=== PATIENT | male | born 1955 ===

== ENCOUNTER 2016-09-07 06:37 | Day surgery (SDC) | payer MEDICARE ==
[2016-09-07] MEDS ORDERED: Propofol 10 mg/ml Inj (20 ML) ONE (08:29)
--- NOTE | 2016-09-07 08:29 | CP.SDSHP ---
Same Day Surgery H & P - History Proposed Procedure: colonoscopy Pre-Op Diagnosis: screening - Previous Medical/Surgical History Cardiac: Hypertension - Allergies Allergies: Allergies Penicillins Allergy (Intermediate, Verified 09/07/16 07:39) DIZZINESS - Physical Exam Vital Signs: Vital Signs 09/07/16 07:25 Temperature 99.0 F Pulse Rate 80 Respiratory 20 Rate Blood Pressure 133/76 O2 Sat by Pulse 99 Oximetry Mental Status: Alert & Oriented x3 Neuro: WNL Heart: WNL Lungs: WNL GI: WNL - {Optional Preform as Required} Abdomen: WNL - Impression Impression: screening Pt. Evaluated Today:Candidate for Anesthesia & Procedure: Yes - Date & Time Date: 09/07/16 Time: 08:29 Short Stay Discharge - Short Stay Discharge Admitting Diagnosis/Reason for Visit: SCREENING FOR MAL OSMIN COLON Disposition: HOME/ ROUTINE
[2016-09-07 10:22] VITALS: BP 112/69; PULSE 72; RESP 12; TEMP 97.9; O2SAT 97
== END 2016-09-07 10:10 | disposition home or self-care (01) ==
LOC: C.ENDO 06:37
PROVIDERS: ATTEND Internal Medicine Gastroenterology
DX: D12.3 Benign neoplasm of transverse colon (principal); D12.5 Benign neoplasm of sigmoid colon; K57.30 Diverticulosis of large intestine without perforation or abscess without bleeding; K64.8 Other hemorrhoids; D12.4 Benign neoplasm of descending colon
CPT/HCPCS: 45388; 88305; J2704

== ENCOUNTER 2016-12-21 07:39 | Day surgery (SDC) | payer MEDICARE ==
[2016-12-21 09:31] VITALS: RESP 20
[2016-12-21] MEDS ORDERED: Propofol 10 mg/ml Inj (20 ML) ONE (10:22)
[2016-12-21] MEDS ORDERED: Lactated Ringer's 1,000 ML IV ONE (10:25)
--- NOTE | 2016-12-21 10:29 | CP.SDSHP ---
Same Day Surgery H & P - History Proposed Procedure: egd Pre-Op Diagnosis: abdom pain - Previous Medical/Surgical History Cardiac: Hypertension - Allergies Allergies: Allergies Penicillins Allergy (Intermediate, Verified 09/07/16 07:39) DIZZINESS - Physical Exam Vital Signs: Vital Signs 12/21/16 09:15 Temperature 98 F Pulse Rate 85 Respiratory 20 Rate Blood Pressure 139/58 L O2 Sat by Pulse 99 Oximetry Mental Status: Alert & Oriented x3 Neuro: WNL Heart: WNL Lungs: WNL GI: WNL - {Optional Preform as Required} Abdomen: WNL - Impression Impression: abdom pain Pt. Evaluated Today:Candidate for Anesthesia & Procedure: Yes - Date & Time Date: 12/21/16 Time: 10:29 Short Stay Discharge - Short Stay Discharge Admitting Diagnosis/Reason for Visit: ABDOMINAL PAIN Disposition: HOME/ ROUTINE
[2016-12-21 14:54] VITALS: TEMP 97
[2016-12-21 14:56] VITALS: O2SAT 100
[2016-12-21 15:02] VITALS: BP 148/90; PULSE 88
== END 2016-12-21 12:30 | disposition home or self-care (01) ==
LOC: C.ENDO 07:39
PROVIDERS: ATTEND Internal Medicine Gastroenterology
DX: K29.50 Unspecified chronic gastritis without bleeding (principal); K21.0 Gastro-esophageal reflux disease with esophagitis; R10.13 Epigastric pain
CPT/HCPCS: 43239; 88305; J2001; J2704; J7120

== ENCOUNTER 2017-09-01 20:40 | Inpatient (IN) | payer MEDICARE, OTHER ==
[2017-09-01] MEDS ORDERED: Albuterol 0.083% Inhal Sol (2.5 mg/3 mL) UD ONE (20:58)
[2017-09-01] MEDS ORDERED: Albuterol-Ipratrop 3 mg / 0.5 (3 ml) UD IH STA (20:59)
[2017-09-01] MEDS ORDERED: Albuterol 0.083% Inhal Sol (2.5 mg/3 mL) UD IH STA (20:59)
[2017-09-01 21:07] LABS: BASO # 0.1 K/uL (0.0-0.2); BASO % 0.8 % (0.0-2.0); EOS # 0.3 K/uL (0.0-0.7); EOS % 2.3 % (0.0-4.0); HEMOGLOBIN 15.7 g/dL (12.0-18.0); LYMPH # 3.1 K/uL (1.0-4.3); LYMPH % 24.8 % (20.0-40.0); MEAN CORPUSCULAR HEMOGLOBIN 27.8 pg (27.0-31.0); MEAN CORPUSCULAR HGB CONC 34.3 g/dL (33.0-37.0); MEAN PLATELET VOLUME 8.3 fL (7.2-11.7); MONO # 1.3 K/uL (0.0-0.8); MONO % 10.5 % (0.0-10.0); NEUT # 7.8 K/uL (1.8-7.0); NEUT % 61.6 % (50.0-75.0); NRBC % 0.2 % (0.0-2.0); RBC 5.63 Mil/uL (4.40-5.90); RED CELL DISTRIBUTION WIDTH 15.4 % (11.5-14.5); WHITE BLOOD COUNT 12.7 K/uL (4.8-10.8)
[2017-09-01 21:33] LABS: ABG ALLEN TEST YES; ARTERIAL BLOOD GAS HCO3 23.7 mmol/L (21-28); ARTERIAL BLOOD GAS O2 SAT 98.4 % (95-98); ARTERIAL BLOOD GAS PCO2 32 mm/Hg (35-45); ARTERIAL BLOOD GAS PH 7.44 (7.35-7.45); ARTERIAL BLOOD GAS PO2 90 mm/Hg (80-100); ARTERIAL BLOOD GAS TCO2 22.7 mmol/L (22-28)
[2017-09-01 21:47] LABS: ALB/GLOB RATIO 0.9 (1.0-2.1); ALBUMIN 4.5 g/dL (3.5-5.0); ALT/SGPT 133 U/L (21-72); AST/SGOT 140 U/L (17-59); BLOOD UREA NITROGEN 17 mg/dL (9-20); CALCIUM 10.1 mg/dl (8.6-10.4); GFR AFRICAN-AMERICAN 57; GFR NON-AFRICAN AMERICAN 47
[2017-09-01] MEDS ORDERED: Moxifloxacin IV 400mg/250ml NS 400 MG/250 ML BAG IV ONE (21:51)
--- NOTE | 2017-09-01 21:51 | C.PDOC ---
History Of Present Illness 62 year old male, whose PMHx includes HTN and chronic pain syndrome, presents to the ED for evaluation of shortness of breath which had been ongoing for several weeks but worsened over the last 2 days. Earlier today, patient began experiencing mid-sternal chest tightness with severe difficulty breathing. He took one full strength Aspirin without relief. Upon ED arrival, patient appears to be acutely short of breath, profusely diaphoretic and is complaining of chest pain and trouble breathing. Patient denies fever, chills, nasuea, vomiting , cough, extremity numbness/weakness. Time Seen by Provider: 09/01/17 20:49 Chief Complaint (Nursing): Chest Pain History Per: Patient History/Exam Limitations: no limitations Onset/Duration Of Symptoms: Other (several weeks, worse over past 2 days ) Current Symptoms Are (Timing): Worse Quality: Tightness Current Respiratory Medications: See Home Med List Associated Symptoms: Chest Pain. denies: Fever, Chills, Bloody Cough, Productive Cough Additional History Per: Patient Past Medical History Reviewed: Historical Data, Nursing Documentation, Vital Signs Vital Signs: Last Vital Signs Temp 99 F 09/01/17 20:50 Pulse 90 09/01/17 21:30 Resp 20 09/01/17 20:50 BP 134/101 H 09/01/17 20:50 Pulse Ox 99 09/01/17 22:22 - Medical History PMH: Anxiety, Arthritis, Colonic Polyps, Gastritis, HTN Denies: Depression, Post Traumatic Stress Disorder, Chronic Kidney Disease Surgical History: Back Surgery, Endoscopy Family History: States: Unknown Family Hx - Social History Hx Tobacco Use: Yes Hx Alcohol Use: No Hx Substance Use: No - Immunization History Hx Tetanus Toxoid Vaccination: Yes (3-4 years ago) Hx Influenza Vaccination: Yes (03/2015) Hx Pneumococcal Vaccination: No Review Of Systems Constitutional: Negative for: Fever, Chills Cardiovascular: Positive for: Other (mid-sternal chest tightness ) Respiratory: Positive for: Shortness of Breath. Negative for: Cough Gastrointestinal: Negative for: Nausea, Vomiting Neurological: Negative for: Weakness, Numbness Physical Exam - Physical Exam Appears: Non-toxic, Other (in acute respiratory distress ) Skin: Normal Color, Warm, Diaphoretic, Other (dusky, clammy ) Head: Atraumatic, Normacephalic Eye(s): bilateral: Normal Inspection Oral Mucosa: Moist Neck: Supple Chest: Symmetrical, No Deformity, No Tenderness Cardiovascular: Rhythm Regular, No Murmur Respiratory: Decreased Breath Sounds (bilaterally ), No Rales, No Rhonchi, Wheezing, Other (tachypneic ) Gastrointestinal/Abdominal: Soft, No Tenderness, No Guarding, No Rebound Extremity: Normal ROM, Capillary Refill (less than 2 seconds ) Neurological/Psych: Oriented x3, Normal Speech, Normal Cognition ED Course And Treatment - Laboratory Results Result Diagrams: 09/01/17 21:04 09/01/17 21:04 O2 Sat by Pulse Oximetry: 99 (on RA) Pulse Ox Interpretation: Normal Progress Note: Bloodwork, urinalysis, CXR , EKG ordered and reviewed. BIPAP started. Albuterol INH, Solumedrol IV, Nitroglycerin SL, Rocephin IVP, and Zithromax IV administered. On re-exam, patient is resting comfortably and has shown significant improvement in symptoms. Case discussed with Dr. Villa. Patient will be admitted for community aquired pneumonia. Reevaluation Time: 22:25 Reassessment Condition: Improved Disposition - Disposition Disposition: HOSPITALIZED Disposition Time: 22:26 Condition: IMPROVED - POA Present On Arrival: None - Clinical Impression Clinical Impression: Pneumonia - Scribe Statement The provider has reviewed the documentation as recorded by the Scribe (Eliane Iverson) Provider Attestation: All medical record entries made by the Scribe were at my direction and personally dictated by me. I have reviewed the chart and agree that the record accurately reflects my personal performance of the history, physical exam, medical decision making, and the department course for this patient. I have also personally directed, reviewed, and agree with the discharge instructions and disposition.
[2017-09-01 21:59] LABS: B-TYPE NATRIURETIC PEPTIDE 34.6 pg/mL (0-900)
[2017-09-01] MEDS ORDERED: Azithromycin 500 MG in Sodium Chloride 0.9% 250 ML IVPB STA (22:16)
[2017-09-01] MEDS ORDERED: cefTRIAXone IV 1 gm in Dextros 50 ML IVPB ONE (22:36)
--- NOTE | 2017-09-02 01:29 | CP.PCM.HP ---
<Jessie Tristan - Last Filed: 09/02/17 01:52> History of Present Illness - History of Present Illness History of Present Illness: HPI: Patient is a 62 year old male with a past medical history of HTN, anxiety, arthritis, and gastritis who presents to the ED complaining of weakness, fatigue , and shortness of breath since August 06. Patient says it has progressively worsened to the point that he could not even clean his apartment today without feeling SOB and fatigued. He notes substernal chest moreno that started today as well which is what prompted him to come to the emergency room. Patient also admits to chills, sweats, dry cough, nausea, and diarrhea since then as well. Patient notes that he has recently changed his diet and lost 25 pounds but thinks his diarrhea is due to increased fiber intake. Patient says he goes apporximately 2-5 times per day, depending on the day. Patinet denies fever, dizziness, palpitations, abdominal pain, constipation, dysuria, lower extremity pain/swelling, rashes, and sick contacts. PMD: Dr. Frank Pain Management: Dr. Owens PMH: HTN, anxiety, arthritis, and gastritis Meds: * Triamterene 37.5-25 mg QAM * Quetiapine 25 mg QD * Donepazil 10 mg QD * Xanax 0.25 BID PRN * Trazadone 50 mg QD * Fluticasone PRN * Citirazine 10 mg QD * Omeprazole 40 mg AC PRN Allergies: PCN, seasonal PSH: right shoulder replacement FH: Brother with DM SH: Smokes 1 PPD, denies alcohol and drug use; has 1 daughter; lives alone Present on Admission - Present on Admission Any Indicators Present on Admission: No Review of Systems - Review of Systems All systems: reviewed and no additional remarkable complaints except (as per HPI ) Past Patient History - Past Medical History & Family History Past Medical History?: Yes - Past Social History Smoking Status: Current Some Days Smoker - CARDIAC Hx Hypertension: Yes - PULMONARY Hx Respiratory Disorders: No - NEUROLOGICAL Hx Neurological Disorder: No - HEENT Hx HEENT Problems: No - RENAL Hx Chronic Kidney Disease: No - ENDOCRINE/METABOLIC Hx Endocrine Disorders: No - HEMATOLOGICAL/ONCOLOGICAL Hx Blood Disorders: No - INTEGUMENTARY Hx Dermatological Problems: No - MUSCULOSKELETAL/RHEUMATOLOGICAL Hx Arthritis: Yes - GASTROINTESTINAL Hx Gastritis: Yes - GENITOURINARY/GYNECOLOGICAL Hx Genitourinary Disorders: No - PSYCHIATRIC Hx Anxiety: Yes Hx Depression: No Hx Post Traumatic Stress Disorder: No Hx Substance Use: No - SURGICAL HISTORY Hx Surgeries: Yes Hx Arthroscopy: No Hx Open Reduction Internal Fixation: No Hx Orthopedic Surgery: Yes (RIGHT SHOULDER ROTO CUFF) - ANESTHESIA Hx Anesthesia: Yes Hx Anesthesia Reactions: No Hx Malignant Hyperthermia: No Meds Allergies/Adverse Reactions: Allergies Allergy/AdvReac Type Severity Reaction Status Date / Time Penicillins Allergy Intermediate DIZZINESS Verified 09/07/16 07:39 Physical Exam - Constitutional Appears: Non-toxic, No Acute Distress Additional comments: very talkative, speaking in full sentences - Head Exam Head Exam: ATRAUMATIC, NORMAL INSPECTION, NORMOCEPHALIC Additional comments: on BiPAP - Eye Exam Eye Exam: EOMI, Normal appearance, PERRL - ENT Exam ENT Exam: Mucous Membranes Moist - Neck Exam Additional comments: healing wound on right side from line placed by pain management doctor - Respiratory Exam Respiratory Exam: Rales, Rhonchi, Wheezes, NORMAL BREATHING PATTERN. absent: Accessory Muscle Use, Clear to Auscultation Bilateral, Respiratory Distress Additional comments: on BiPAP Very talkative and speaking in full sentences - Cardiovascular Exam Cardiovascular Exam: RRR, +S1, +S2. absent: Bradycardia, Tachycardia, Diastolic murmur, Gallop, Rubs, Systolic Murmur - GI/Abdominal Exam GI & Abdominal Exam: Normal Bowel Sounds, Soft. absent: Distended, Tenderness Additional comments: obese abdomen - Extremities Exam Extremities exam: Positive for: normal inspection. Negative for: calf tenderness, pedal edema - Neurological Exam Neurological exam: Alert, Oriented x3 - Psychiatric Exam Psychiatric exam: Normal Affect, Normal Mood - Skin Skin Exam: Dry, Intact, Normal Color, Warm Results - Vital Signs Recent Vital Signs: Last Vital Signs Temp 99 F 09/01/17 20:50 Pulse 89 09/02/17 00:06 Resp 20 09/02/17 00:06 BP 122/79 09/02/17 00:06 Pulse Ox 96 09/02/17 00:06 - Labs Result Diagrams: 09/01/17 21:04 09/01/17 21:04 Labs: Laboratory Results - last 24 hr 09/01/17 09/01/17 09/01/17 21:04 21:04 21:20 WBC 12.7 H RBC 5.63 Hgb 15.7 Hct 45.6 MCV 81.0 D MCH 27.8 MCHC 34.3 RDW 15.4 H Plt Count 301 MPV 8.3 Neut % (Auto) 61.6 Lymph % (Auto) 24.8 Braxton % (Auto) 10.5 H Eos % (Auto) 2.3 Baso % (Auto) 0.8 Neut # (Auto) 7.8 H Lymph # (Auto) 3.1 Braxton # (Auto) 1.3 H Eos # (Auto) 0.3 Baso # (Auto) 0.1 Puncture Site Lra pCO2 32 L pO2 90 HCO3 23.7 ABG pH 7.44 ABG Total CO2 22.7 ABG O2 Saturation 98.4 H ABG Base Excess -1.5 ABG Hemoglobin 15.0 ABG Carboxyhemoglobin 2.3 H POC ABG HHb (Measured) 1.5 ABG Methemoglobin 1.6 Jt Test Yes A-a O2 Difference 84.0 Respiratory Index 0.9 Hgb O2 Saturation 94.6 L Vent Mode Bipap FiO2 30.0 Inspiratory BiPAP 16 Expiratory BiPAP 5 Sodium 142 Potassium 3.9 Chloride 104 Carbon Dioxide 22 Anion Gap 20 BUN 17 Creatinine 1.5 Est GFR ( Amer) 57 Est GFR (Non-Af Amer) 47 Random Glucose 99 Calcium 10.1 Total Bilirubin 0.7 AST 140 H ALT 133 H D Alkaline Phosphatase 253 H Troponin I < 0.0120 NT-Pro-B Natriuret Pep 34.6 Total Protein 9.4 H Albumin 4.5 Globulin 4.9 H Albumin/Globulin Ratio 0.9 L Assessment & Plan - Assessment and Plan (Free Text) Plan: Pneumonia * Leukocytosis (12.7); afebrile * given rocephin, avelox, and azithromycin in ED * on BiPAP * ECG: tachycardia with left atrial enlargement * Flu negative * lactate 1.3 * f/u CXR read * f/u procal * f/u mycoplasma, strep pneumo, and legionella * Primaxin 500 mg Q12H Chest pain * Troponin negative x1 * f/u trend * ECG as above - f/u trend * BNP 34.6 Transaminitis * f/u hep panel History of HTN * continue home triamterene Prophylaxis * DVT: heparin and SCDs * GI: pepcid for history of gastritis * Claritin PRN allergies <Stevo Villa Nayla - Last Filed: 09/02/17 06:25> Results - Vital Signs Recent Vital Signs: Last Vital Signs Temp 97.8 F 09/02/17 05:23 Pulse 80 09/02/17 05:23 Resp 20 09/02/17 05:23 BP 116/72 09/02/17 05:23 Pulse Ox 98 09/02/17 05:23 - Labs Result Diagrams: 09/01/17 21:04 09/01/17 21:04 Labs: Laboratory Results - last 24 hr 09/01/17 09/01/17 09/01/17 21:04 21:04 21:20 WBC 12.7 H RBC 5.63 Hgb 15.7 Hct 45.6 MCV 81.0 D MCH 27.8 MCHC 34.3 RDW 15.4 H Plt Count 301 MPV 8.3 Neut % (Auto) 61.6 Lymph % (Auto) 24.8 Braxton % (Auto) 10.5 H Eos % (Auto) 2.3 Baso % (Auto) 0.8 Neut # (Auto) 7.8 H Lymph # (Auto) 3.1 Braxton # (Auto) 1.3 H Eos # (Auto) 0.3 Baso # (Auto) 0.1 Puncture Site Lra pCO2 32 L pO2 90 HCO3 23.7 ABG pH 7.44 ABG Total CO2 22.7 ABG O2 Saturation 98.4 H ABG Base Excess -1.5 ABG Hemoglobin 15.0 ABG Carboxyhemoglobin 2.3 H POC ABG HHb (Measured) 1.5 ABG Methemoglobin 1.6 Jt Test Yes A-a O2 Difference 84.0 Respiratory Index 0.9 Hgb O2 Saturation 94.6 L Vent Mode Bipap FiO2 30.0 Inspiratory BiPAP 16 Expiratory BiPAP 5 Sodium 142 Potassium 3.9 Chloride 104 Carbon Dioxide 22 Anion Gap 20 BUN 17 Creatinine 1.5 Est GFR ( Amer) 57 Est GFR (Non-Af Amer) 47 Random Glucose 99 Lactic Acid Calcium 10.1 Total Bilirubin 0.7 AST 140 H ALT 133 H D Alkaline Phosphatase 253 H Total Creatine Kinase CK-MB (Mass) Troponin I < 0.0120 NT-Pro-B Natriuret Pep 34.6 Total Protein 9.4 H Albumin 4.5 Globulin 4.9 H Albumin/Globulin Ratio 0.9 L Influenza Typ A,B (EIA) 09/02/17 09/02/17 09/02/17 01:17 01:17 02:35 WBC RBC Hgb Hct MCV MCH MCHC RDW Plt Count MPV Neut % (Auto) Lymph % (Auto) Braxton % (Auto) Eos % (Auto) Baso % (Auto) Neut # (Auto) Lymph # (Auto) Braxton # (Auto) Eos # (Auto) Baso # (Auto) Puncture Site pCO2 pO2 HCO3 ABG pH ABG Total CO2 ABG O2 Saturation ABG Base Excess ABG Hemoglobin ABG Carboxyhemoglobin POC ABG HHb (Measured) ABG Methemoglobin Jt Test A-a O2 Difference Respiratory Index Hgb O2 Saturation Vent Mode FiO2 Inspiratory BiPAP Expiratory BiPAP Sodium Potassium Chloride Carbon Dioxide Anion Gap BUN Creatinine Est GFR ( Amer) Est GFR (Non-Af Amer) Random Glucose Lactic Acid 1.3 Calcium Total Bilirubin AST ALT Alkaline Phosphatase Total Creatine Kinase 184 H CK-MB (Mass) 1.54 Troponin I < 0.0120 NT-Pro-B Natriuret Pep Total Protein Albumin Globulin Albumin/Globulin Ratio Influenza Typ A,B (EIA) Negative for flu a/b Assessment & Plan - Date & Time Date: 09/02/17 (I have seen and examined the patient. I agree with the findings and plan of care as documented by Dr. Tristan. Patient with pneumonia. Check sputum and blood cultures. Primaxin. Penicillin allergy. Chest pain. ROMIx3 with EKG. Check hep panel due to transaminitis. Monitor for acute changes.) Time: 06:23 Attending/Attestation - Attestation I have personally seen and examined this patient.: Yes I have fully participated in the care of the patient.: Yes I have reviewed all pertinent clinical information: Yes
[2017-09-02 03:03] LABS: CK-MB 1.54 ng/mL (0.0-3.38)
[2017-09-02 09:09] LABS: BASO % 0.3 % (0.0-2.0); LYMPH # 1.1 K/uL (1.0-4.3); LYMPH % 13.5 % (20.0-40.0); MEAN CORPUSCULAR HEMOGLOBIN 28.1 pg (27.0-31.0); MEAN CORPUSCULAR HGB CONC 34.2 g/dL (33.0-37.0); MEAN PLATELET VOLUME 8.5 fL (7.2-11.7); MONO # 0.2 K/uL (0.0-0.8); MONO % 2.6 % (0.0-10.0); NEUT # 6.7 K/uL (1.8-7.0); NEUT % 83.6 % (50.0-75.0); NRBC % 0.1 % (0.0-2.0); RED CELL DISTRIBUTION WIDTH 15.6 % (11.5-14.5); WHITE BLOOD COUNT 8.1 K/uL (4.8-10.8)
[2017-09-02 09:31] LABS: ALT/SGPT 114 U/L (21-72); AST/SGOT 112 U/L (17-59); BLOOD UREA NITROGEN 17 mg/dL (9-20); CALCIUM 9.4 mg/dl (8.6-10.4); GFR AFRICAN-AMERICAN > 60; GFR NON-AFRICAN AMERICAN > 60
[2017-09-02] MEDS: hydroCHLOROthiazide-Triamterene 25 mg-37.5 mg Cap UD PO SCH (10:57)
--- NOTE | 2017-09-02 11:10 | RAD ---
PROCEDURE: CHEST RADIOGRAPH, 1 VIEW HISTORY: SOB COMPARISON: 08/23/2016 FINDINGS: LUNGS: Localized dense the consolidation seen in the right lateral mid to lower lung zone and left suprahilar region with patchy infiltrate in the right lung base and to a lesser degree right upper lobe. Patchy infiltrate changes throughout the left lung. PLEURA: No pneumothorax or pleural fluid seen. CARDIOVASCULAR: Cardiomegaly OSSEOUS STRUCTURES: No significant abnormalities. VISUALIZED UPPER ABDOMEN: Normal. OTHER FINDINGS: None. IMPRESSION: Multifocal infiltrates as described
--- NOTE | 2017-09-02 11:10 | CP.PCM.PN ---
<Yudy Sandoval - Last Filed: 09/02/17 15:13> Subjective - Date & Time of Evaluation Date of Evaluation: 09/02/17 Time of Evaluation: 11:06 - Subjective Subjective: PGY2 progress note for Dr. Hung Pt seen and examined at bedside. No acute events overnight. patient is currently on BiPAP machine. denies having any SOB currently. Patient continues to complain of cough that is productive of clear sputum. Patient denies having any CP, abd pain, N/V/D/C, F/C. Objective - Vital Signs/Intake and Output Vital Signs (last 24 hours): Temp Pulse Resp BP Pulse Ox 97.2 F L 90 18 124/77 96 09/02/17 07:00 09/02/17 07:00 09/02/17 07:00 09/02/17 07:00 09/02/17 07:00 - Medications Medications: Current Medications Acetaminophen (Tylenol 325mg Tab) 650 mg PO Q6 PRN PRN Reason: Fever >100.4 F Alprazolam (Xanax) 0.25 mg PO BID PRN PRN Reason: Anxiety Stop: 09/09/17 10:01 Last Admin: 09/02/17 01:32 Dose: 0.25 mg Donepezil HCl (Aricept) 10 mg PO HS LISA Famotidine (Pepcid) 20 mg PO BID [facility] Last Admin: 09/02/17 09:48 Dose: 20 mg Heparin Sodium (Porcine) (Heparin) 5,000 units SC Q12 LISA Last Admin: 09/02/17 09:48 Dose: 5,000 units Imipenem/Cilastatin Sodium 500 (mg/ Sodium Chloride) 100 mls @ 100 mls/hr IVPB Q12H LISA PRN Reason: Protocol Last Admin: 09/02/17 01:02 Dose: 100 mls/hr Loratadine (Claritin) 10 mg PO HS PRN PRN Reason: Allergy symptoms Last Admin: 09/02/17 01:32 Dose: 10 mg Pneumococcal Polyvalent Vaccine (Pneumovax 23 Vaccine) 0.5 ml IM .ONCE ONE Stop: 09/03/17 10:01 Quetiapine Fumarate (Seroquel) 25 mg PO DAILY [facility] Last Admin: 09/02/17 09:48 Dose: 25 mg Triamterene/HCTZ (Dyazide 25 Mg-37.5 Mg) 1 cap PO DAILY LISA Last Admin: 09/02/17 10:57 Dose: 1 cap - Labs Labs: 09/02/17 08:52 09/02/17 08:52 - Constitutional Appears: Non-toxic, No Acute Distress - Head Exam Head Exam: ATRAUMATIC - ENT Exam ENT Exam: Mucous Membranes Moist - Respiratory Exam Respiratory Exam: Clear to Ausculation Bilateral. absent: Accessory Muscle Use , Rales, Rhonchi, Wheezes, Respiratory Distress - Cardiovascular Exam Cardiovascular Exam: REGULAR RHYTHM, +S1, +S2. absent: Gallop, Rubs, Murmur - GI/Abdominal Exam GI & Abdominal Exam: Soft, Normal Bowel Sounds. absent: Distended, Firm, Guarding, Rigid, Tenderness, Organomegaly - Extremities Exam Extremities Exam: absent: Pedal Edema, Tenderness - Neurological Exam Neurological Exam: Alert, Awake, Oriented x3 - Psychiatric Exam Psychiatric exam: Normal Affect, Normal Mood - Skin Skin Exam: Dry, Intact, Normal Color, Warm Assessment and Plan - Assessment and Plan (Free Text) Assessment: Pneumonia * WBC count improved. afebrile overnight * lactate on admission was 1.3 * given rocephin, avelox, and azithromycin in ED. Currently on Primaxin 500 mg po q12 * on BiPAP * ECG: tachycardia with left atrial enlargement * f/u CXR read * f/u procal * Negative flu and negative legionella * CT of chest ordered. Results pending Chest pain * Troponin negative x2 * f/u trend * ECG as above - f/u trend * BNP 34.6 Transaminitis * f/u hep panel * trending down History of HTN * continue home triamterene Tobacco abuse * Discussed the adverse effects of tobacco abuse and recommended cessation Prophylaxis * DVT: heparin and SCDs * GI: pepcid for history of gastritis * Claritin PRN allergies Case discussed with Dr. Hung <Anson Hung - Last Filed: 09/02/17 15:52> Objective - Vital Signs/Intake and Output Vital Signs (last 24 hours): Temp Pulse Resp BP Pulse Ox 97.2 F L 90 18 124/77 96 09/02/17 07:00 09/02/17 07:00 09/02/17 07:00 09/02/17 07:00 09/02/17 07:00 - Medications Medications: Current Medications Acetaminophen (Tylenol 325mg Tab) 650 mg PO Q6 PRN PRN Reason: Fever >100.4 F Alprazolam (Xanax) 0.25 mg PO BID PRN PRN Reason: Anxiety Stop: 09/09/17 10:01 Last Admin: 09/02/17 01:32 Dose: 0.25 mg Donepezil HCl (Aricept) 10 mg PO HS LISA Famotidine (Pepcid) 20 mg PO BID [facility] Last Admin: 09/02/17 09:48 Dose: 20 mg Heparin Sodium (Porcine) (Heparin) 5,000 units SC Q12 [facility] Last Admin: 09/02/17 09:48 Dose: 5,000 units Imipenem/Cilastatin Sodium 500 (mg/ Sodium Chloride) 100 mls @ 100 mls/hr IVPB Q12H LISA PRN Reason: Protocol Last Admin: 09/02/17 01:02 Dose: 100 mls/hr Loratadine (Claritin) 10 mg PO HS PRN PRN Reason: Allergy symptoms Last Admin: 09/02/17 01:32 Dose: 10 mg Methylprednisolone (Solu-Medrol) 40 mg IVP Q12 [facility] Pneumococcal Polyvalent Vaccine (Pneumovax 23 Vaccine) 0.5 ml IM .ONCE ONE Stop: 09/03/17 10:01 Quetiapine Fumarate (Seroquel) 25 mg PO DAILY [facility] Last Admin: 09/02/17 09:48 Dose: 25 mg Triamterene/HCTZ (Dyazide 25 Mg-37.5 Mg) 1 cap PO DAILY [facility] Last Admin: 09/02/17 10:57 Dose: 1 cap - Labs Labs: 09/02/17 08:52 09/02/17 08:52 Attending/Attestation - Attestation I have personally seen and examined this patient.: Yes I have fully participated in the care of the patient.: Yes I have reviewed all pertinent clinical information, including history, physical exam and plan: Yes Notes (Text): 09/02/17 15:42 Medical attending: Patient was seen and examined by me. Agree with the above note by the resident. The patient has a very strong history of smoking - well over 30 years he says. Because of size of infiltrate on the CXRAY, we will also get a CT scan of the chest as well. He remains on IV abx. The WBC has decreased. We are still pending the blood as well as urine culture at this time. We discussed his smoking as well, explained to him that the smoking places patient at risk for many things including COPD/Emphesema. He is already on IV solumedrol BID. thank you Anson Hung
[2017-09-02 14:01] LABS: CK-MB 1.58 ng/mL (0.0-3.38)
--- NOTE | 2017-09-02 16:42 | CT ---
PROCEDURE: CT chest dated 09/02/2017 HISTORY: Shortness of breath pneumonia COMPARISON: ; comparison made with prior chest radiograph dated 09/01/2017 TECHNIQUE: Contiguous axial images were obtained through the chest without intravenous contrast enhancement. Sagittal and coronal reconstructions were performed. Radiation dose (DLP): 766.83 bold mGy-cm. This CT exam was performed using one or more of the following dose reduction techniques: Automated exposure control, adjustment of the mA and/or kV according to patient size, and/or use of iterative reconstruction technique. FINDINGS: LUNGS: Dense consolidation right middle lobe likely representing a combination of atelectasis and pneumonia. The findings could represent postobstructive atelectasis and/or infiltrate due to a large hilar mass or conglomeration of adenopathy. There are interstitial and scattered patchy nodular infiltrate changes within both lung bases right greater than left as well as right upper lobe. Honeycombing and fibrosis seen in the left upper lobe with minimal suspected early infiltrate changes seen in the posterior upper lung field as well bordering the fissure. There is a small discrete nodular density right lung apex measuring approximately 8 mm. MEDIASTINUM: Heart size within range of normal. No significant pericardial effusion. There are multiple enlarged of hilar lymph nodes seen with the largest of which is located in the right paratracheal anterolateral paratracheal region measuring approximately 2.9 cm. Large subcarinal lymph node measures approximately 2.57 cm. Evaluation for hilar adenopathy limited due to the lack of circulating intravenous contrast material. PLEURA: No pleural fluid. No pneumothorax. BONES: No acute compression fractures no retropulsed fragments. Mild multilevel degenerative spondylosis of the of the thoracic spine. UPPER ABDOMEN: There are multiple ill-defined of varying sized low-attenuation lesions scattered throughout the hepatic parenchyma which are of uncertain etiology though metastatic disease must be considered. Gallbladder is incompletely distended likely due to nonfasting state. Visualized portions of the pancreas appears atrophic and fatty replaced. Multiple cystic lesions seen arising from the upper pole left kidney. . There is also a smaller discrete elliptical shaped discrete and linear shaped density upper pole left kidney may represent volume averaging of compressed of renal cortex. OTHER FINDINGS: None. IMPRESSION: Dense consolidation right middle lobe likely representing a combination of atelectasis and pneumonia the likely postobstructive of sequela due to a large hilar mass and/or conglomeration of adenopathy. There are interstitial and scattered patchy nodular infiltrate changes within both lung bases right greater than left as well as right upper lobe. Honeycombing and fibrosis seen in the left upper lobe with minimal suspected early infiltrate changes seen in the posterior upper lung field as well bordering the fissure. There is a small discrete nodular density right lung apex measuring approximately 8 mm. Follow-up CT scan 3-6 months recommended to assess for any changes. Significant mediastinal adenopathy as described.
[2017-09-02] MEDS: MethylPREDNISolone 40 mg Vial IVP SCH (21:18)
[2017-09-03 08:31] LABS: BASO % 0.3 % (0.0-2.0); EOS % 0.1 % (0.0-4.0); HEMOGLOBIN 14.7 g/dL (12.0-18.0); LYMPH # 1.5 K/uL (1.0-4.3); LYMPH % 11.2 % (20.0-40.0); MEAN CORPUSCULAR HEMOGLOBIN 27.8 pg (27.0-31.0); MEAN CORPUSCULAR HGB CONC 33.5 g/dL (33.0-37.0); MEAN PLATELET VOLUME 8.3 fL (7.2-11.7); MONO # 0.7 K/uL (0.0-0.8); MONO % 5.5 % (0.0-10.0); NEUT # 10.9 K/uL (1.8-7.0); NEUT % 82.9 % (50.0-75.0); RBC 5.3 Mil/uL (4.40-5.90); RED CELL DISTRIBUTION WIDTH 15.5 % (11.5-14.5)
[2017-09-03 08:34] LABS: WHITE BLOOD COUNT 13.1 K/uL (4.8-10.8)
[2017-09-03 08:39] LABS: HEPATITIS B SURFACE AG Negative (NEGATIVE)
[2017-09-03 08:42] LABS: ALB/GLOB RATIO 0.9 (1.0-2.1); ALBUMIN 4.1 g/dL (3.5-5.0); ALT/SGPT 126 U/L (21-72); AST/SGOT 117 U/L (17-59); BLOOD UREA NITROGEN 20 mg/dL (9-20); CALCIUM 9.4 mg/dl (8.6-10.4); GFR AFRICAN-AMERICAN > 60; GFR NON-AFRICAN AMERICAN > 60
[2017-09-03 08:45] LABS: HEPATITIS A IGM NEGATIVE (NEGATIVE); HEPATITIS B CORE AB NEGATIVE (NEGATIVE)
[2017-09-03 08:57] LABS: HEPATITIS C ANTIBODY NEGATIVE (NEGATIVE)
[2017-09-03] MEDS: hydroCHLOROthiazide-Triamterene 25 mg-37.5 mg Cap UD PO SCH (09:33)
[2017-09-03] MEDS: MethylPREDNISolone 40 mg Vial IVP SCH ×2 (09:39→21:10)
[2017-09-03] MEDS ORDERED: Pneumococcal 23-Valent Vaccine IM ONE (10:00)
[2017-09-03] MEDS ORDERED: Albuterol-Ipratrop 3 mg / 0.5 (3 ml) UD INH PRN (17:12)
--- NOTE | 2017-09-03 17:34 | CP.PCM.PN ---
Subjective - Date & Time of Evaluation Date of Evaluation: 09/03/17 Time of Evaluation: 17:23 - Subjective Subjective: Patient seen and examined at bedside. Patient resting comfortably in bed with no new complaints at this time. Patient states that he feels much better today. He has been up walking around without difficulty. Patient voices some concern about his diagnosis and seems anxious. I explained pneumonia to him and let him know he would need to stay here in the hospital for at least a few more days. Currently patient denies any chest pain, SOB, palpitations, abdominal pain, n/v/ d/c, and lower extremity pain/swelling. Objective - Vital Signs/Intake and Output Vital Signs (last 24 hours): Temp Pulse Resp BP Pulse Ox 97.3 F L 67 20 152/88 H 96 09/03/17 15:50 09/03/17 16:00 09/03/17 15:50 09/03/17 15:50 09/03/17 15:50 Intake and Output: 09/03/17 09/03/17 06:59 18:59 Intake Total 600 400 Balance 600 400 - Medications Medications: Current Medications Acetaminophen (Tylenol 325mg Tab) 650 mg PO Q6 PRN PRN Reason: Fever >100.4 F Albuterol/Ipratropium (Duoneb 3 Mg/0.5 Mg (3 Ml) Ud) 3 ml INH RQ2 PRN PRN Reason: Shortness of Breath Albuterol/Ipratropium (Duoneb 3 Mg/0.5 Mg (3 Ml) Ud) 3 ml INH RQ4 [facility]AN Alprazolam (Xanax) 0.25 mg PO BID PRN PRN Reason: Anxiety Stop: 09/09/17 10:01 Last Admin: 09/02/17 21:17 Dose: 0.25 mg Donepezil HCl (Aricept) 10 mg PO HS [facility] Last Admin: 09/02/17 21:18 Dose: 10 mg Famotidine (Pepcid) 20 mg PO BID [facility] Last Admin: 09/03/17 09:33 Dose: 20 mg Heparin Sodium (Porcine) (Heparin) 5,000 units SC Q12 [facility] Last Admin: 09/03/17 09:33 Dose: 5,000 units Imipenem/Cilastatin Sodium 500 (mg/ Sodium Chloride) 100 mls @ 100 mls/hr IVPB Q12H [facility] PRN Reason: Protocol Last Admin: 09/03/17 11:15 Dose: 100 mls/hr Loratadine (Claritin) 10 mg PO HS PRN PRN Reason: Allergy symptoms Last Admin: 09/02/17 21:17 Dose: 10 mg Methylprednisolone (Solu-Medrol) 40 mg IVP Q12 [facility] Last Admin: 09/03/17 09:39 Dose: 40 mg Quetiapine Fumarate (Seroquel) 25 mg PO DAILY [facility] Last Admin: 09/03/17 09:39 Dose: 25 mg Triamterene/HCTZ (Dyazide 25 Mg-37.5 Mg) 1 cap PO DAILY [facility] Last Admin: 09/03/17 09:33 Dose: 1 cap - Labs Labs: 09/03/17 08:20 09/03/17 08:20 - Constitutional Appears: Non-toxic, No Acute Distress - Head Exam Head Exam: ATRAUMATIC, NORMAL INSPECTION, NORMOCEPHALIC - Eye Exam Eye Exam: EOMI, Normal appearance, PERRL - ENT Exam ENT Exam: Mucous Membranes Moist - Respiratory Exam Respiratory Exam: Rhonchi, Wheezes (R>L ), NORMAL BREATHING PATTERN. absent: Rales - Cardiovascular Exam Cardiovascular Exam: RRR, +S1, +S2 - GI/Abdominal Exam GI & Abdominal Exam: Soft, Normal Bowel Sounds. absent: Distended, Tenderness - Extremities Exam Extremities Exam: Normal Inspection. absent: Calf Tenderness, Pedal Edema - Neurological Exam Neurological Exam: Alert, Awake, Oriented x3 - Psychiatric Exam Psychiatric exam: Anxious, Normal Mood - Skin Skin Exam: Dry, Intact, Normal Color, Warm Assessment and Plan - Assessment and Plan (Free Text) Plan: Pneumonia * Pulmonology consult (Dr. Bueno) - help appreciated * ECG: tachycardia with left atrial enlargement * Procal <0.05 * BiPAP prn * Negative flu * Negative legionella * Negative blood cultures * f/u sputum culture Imaging * CXR: Localized dense the consolidation seen in the right lateral mid to lower lung zone and left suprahilar region with patchy infiltrate in the right lung base and to a lesser degree right upper lobe. Patchy infiltrate changes throughout the left lung. * CT of chest: Dense consolidation right middle lobe likely representing a combination of atelectasis and pneumonia the likely postobstructive of sequela due to a large hilar mass and/or conglomeration of adenopathy. There are interstitial and scattered patchy nodular infiltrate changes within both lung bases right greater than left as well as right upper lobe. Honeycombing and fibrosis seen in the left upper lobe with minimal suspected early infiltrate changes seen in the posterior upper lung field as well bordering the fissure. There is a small discrete nodular density right lung apex measuring approximately 8 mm. Follow-up CT scan 3-6 months recommended to assess for any changes. Significant mediastinal adenopathy as described. Meds: * Primaxin 500 mg po q12 * Duonebs Q2 prn and Q4 elan * Advair BID * Solumedrol 40 mg IV Q12 Chest pain * Likely secondary to above * Troponin negative x3 * ECG as above * BNP 34.6 Transaminitis * Hep panel negative * trending down History of HTN * continue home triamterene Tobacco abuse * Discussed the adverse effects of tobacco abuse and recommended cessation Prophylaxis * DVT: heparin and SCDs * GI: pepcid for history of gastritis * Claritin PRN allergies
--- NOTE | 2017-09-03 18:04 | CP.PCM.CON ---
History of Present Illness - History of Present Illness History of Present Illness: Reason for consult: Right lung mass HPI: 62M with PMHx of HTN, anxiety, arthritis, gastritis presented to the ED complaining of progressive weakness, fatigue and shortness of breath that began 08/06. He reported that on the day of presentation he could not clean his apartment without feeling short of breath and fatigued. He also reported substernal chest pain which was the inciting factor for his presentation. Previously, he had never experienced anything like this before. He reported chills, sweats, dry cough, nausea and diarrhea and has lost 25 pounds intentionally due to a diet change that has led to diarrhea. Today the patient was seen and examined at bedside. He feels that he has improved significantly since admission and denies shortness of breath currently but still reports a nonproductive, forceful cough and wheezing. He denies fever and chills and chest pain. PMHx: HTN, anxiety, arthritis, gastritis PSH: right shoulder replacement Allergies: Penicillin Home Meds: triamterene, quetiapine, donepazil, xanax, trazodone, fluticasone, cetirizine, omeprazole FH: daughter has breast cancer SH: Smokes 1 PPD x over 30 years , denies alcohol and drug use, lives alone Assessment and Plan: 1. Lung mass - CT Chest 09/02: small discrete nodular density in the right lung apex measuring at 8 mm - fiberoptic bronchoscopy/ biopsy for hilar mass 2. Pneumonia - afebrile - CT Chest 09/02: Consolidation in the right middle lobe representing atelectasis and pneumonia, honeycombing and fibrosis in the left upper lobe - CBC 09/03: WBC 13.1 - Procalc 09/02: <0.05 - sputum culture 09/02: rare gram positive cocci, final results pending - BiPAP on standby - on primaxin - solu-medrol 3. Tobacco use disorder - patient is willing to try a tobacco independence program Past Patient History - Past Medical History & Family History Past Medical History?: Yes - Past Social History Smoking Status: Current Some Days Smoker - CARDIAC Hx Hypertension: Yes - PULMONARY Hx Respiratory Disorders: No - NEUROLOGICAL Hx Neurological Disorder: No - HEENT Hx HEENT Problems: No - RENAL Hx Chronic Kidney Disease: No - ENDOCRINE/METABOLIC Hx Endocrine Disorders: No - HEMATOLOGICAL/ONCOLOGICAL Hx Blood Disorders: No - INTEGUMENTARY Hx Dermatological Problems: No - MUSCULOSKELETAL/RHEUMATOLOGICAL Hx Arthritis: Yes - GASTROINTESTINAL Hx Gastritis: Yes - GENITOURINARY/GYNECOLOGICAL Hx Genitourinary Disorders: No - PSYCHIATRIC Hx Anxiety: Yes Hx Depression: No Hx Post Traumatic Stress Disorder: No Hx Substance Use: No - SURGICAL HISTORY Hx Surgeries: Yes Hx Arthroscopy: No Hx Open Reduction Internal Fixation: No Hx Orthopedic Surgery: Yes (RIGHT SHOULDER ROTO CUFF) - ANESTHESIA Hx Anesthesia: Yes Hx Anesthesia Reactions: No Hx Malignant Hyperthermia: No Meds Allergies/Adverse Reactions: Allergies Allergy/AdvReac Type Severity Reaction Status Date / Time Penicillins Allergy Intermediate DIZZINESS Verified 09/07/16 07:39 - Medications Medications: Current Medications Acetaminophen (Tylenol 325mg Tab) 650 mg PO Q6 PRN PRN Reason: Fever >100.4 F Albuterol/Ipratropium (Duoneb 3 Mg/0.5 Mg (3 Ml) Ud) 3 ml INH RQ2 PRN PRN Reason: Shortness of Breath Albuterol/Ipratropium (Duoneb 3 Mg/0.5 Mg (3 Ml) Ud) 3 ml INH RQ4 [facility] Alprazolam (Xanax) 0.25 mg PO BID PRN PRN Reason: Anxiety Stop: 09/09/17 10:01 Last Admin: 09/02/17 21:17 Dose: 0.25 mg Donepezil HCl (Aricept) 10 mg PO HS [facility] Last Admin: 09/02/17 21:18 Dose: 10 mg Famotidine (Pepcid) 20 mg PO BID [facility] Last Admin: 09/03/17 09:33 Dose: 20 mg Heparin Sodium (Porcine) (Heparin) 5,000 units SC Q12 [facility] Last Admin: 09/03/17 09:33 Dose: 5,000 units Imipenem/Cilastatin Sodium 500 (mg/ Sodium Chloride) 100 mls @ 100 mls/hr IVPB Q12H [facility] PRN Reason: Protocol Last Admin: 09/03/17 11:15 Dose: 100 mls/hr Loratadine (Claritin) 10 mg PO HS PRN PRN Reason: Allergy symptoms Last Admin: 09/02/17 21:17 Dose: 10 mg Methylprednisolone (Solu-Medrol) 40 mg IVP Q12 [facility] Last Admin: 09/03/17 09:39 Dose: 40 mg Quetiapine Fumarate (Seroquel) 25 mg PO DAILY [facility] Last Admin: 09/03/17 09:39 Dose: 25 mg Fluticasone/Salmeterol (Advair Diskus 250/50) 1 puff INH RQ12 [facility] Triamterene/HCTZ (Dyazide 25 Mg-37.5 Mg) 1 cap PO DAILY [facility] Last Admin: 09/03/17 09:33 Dose: 1 cap Results - Vital Signs Recent Vital Signs: Last Vital Signs Temp 97.3 F L 09/03/17 15:50 Pulse 67 09/03/17 16:00 Resp 20 09/03/17 15:50 BP 152/88 H 09/03/17 15:50 Pulse Ox 96 09/03/17 15:50 - Labs Result Diagrams: 09/04/17 08:50 09/04/17 08:50 Labs: Laboratory Results - last 24 hr 09/02/17 09/03/17 09/03/17 08:52 08:20 08:20 WBC 13.1 H D RBC 5.30 Hgb 14.7 Hct 44.0 MCV 83.0 MCH 27.8 MCHC 33.5 RDW 15.5 H Plt Count 283 MPV 8.3 Neut % (Auto) 82.9 H Lymph % (Auto) 11.2 L [place] % (Auto) 5.5 Eos % (Auto) 0.1 Baso % (Auto) 0.3 Neut # (Auto) 10.9 H Lymph # (Auto) 1.5 [place] # (Auto) 0.7 Eos # (Auto) 0.0 Baso # (Auto) 0.0 Sodium 144 Potassium 4.7 Chloride 106 Carbon Dioxide 25 Anion Gap 19 BUN 20 Creatinine 1.2 Est GFR ( Amer) > 60 Est GFR (Non-Af Amer) > 60 Random Glucose 124 H Calcium 9.4 Phosphorus 4.5 Magnesium 2.2 Total Bilirubin 0.6 AST 117 H ALT 126 H Alkaline Phosphatase 201 H Total Protein 8.4 H Albumin 4.1 Globulin 4.3 H Albumin/Globulin Ratio 0.9 L Hepatitis A IgM Ab Negative Hep Bs Antigen Negative Hep B Core IgM Ab Negative Hepatitis C Antibody Negative
[2017-09-03] MEDS: Fluticasone-Salmeterol 250-50mcg Diskus INH SCH (21:21)
[2017-09-03] MEDS: Albuterol-Ipratrop 3 mg / 0.5 (3 ml) UD INH SCH ×2 (21:22→23:46)
[2017-09-04] MEDS: Albuterol-Ipratrop 3 mg / 0.5 (3 ml) UD INH SCH ×6 (03:14→23:54)
[2017-09-04] MEDS: Fluticasone-Salmeterol 250-50mcg Diskus INH SCH ×2 (08:45→20:18)
[2017-09-04 09:02] LABS: BASO % 0.3 % (0.0-2.0); HEMOGLOBIN 13.9 g/dL (12.0-18.0); LYMPH # 1.3 K/uL (1.0-4.3); LYMPH % 9.6 % (20.0-40.0); MEAN CELL VOLUME 82.3 fL (80.0-94.0); MEAN CORPUSCULAR HEMOGLOBIN 28.2 pg (27.0-31.0); MEAN CORPUSCULAR HGB CONC 34.3 g/dL (33.0-37.0); MEAN PLATELET VOLUME 8.6 fL (7.2-11.7); MONO # 0.5 K/uL (0.0-0.8); MONO % 3.9 % (0.0-10.0); NEUT # 11.4 K/uL (1.8-7.0); NEUT % 86.2 % (50.0-75.0); PLATELET COUNT 240 K/uL (130-400); RBC 4.92 Mil/uL (4.40-5.90); RED CELL DISTRIBUTION WIDTH 15.4 % (11.5-14.5); WHITE BLOOD COUNT 13.2 K/uL (4.8-10.8)
[2017-09-04 09:17] LABS: ALT/SGPT 135 U/L (21-72); AST/SGOT 108 U/L (17-59); BLOOD UREA NITROGEN 21 mg/dL (9-20); CALCIUM 9.1 mg/dl (8.6-10.4); GFR AFRICAN-AMERICAN > 60; GFR NON-AFRICAN AMERICAN 56
[2017-09-04 10:16] LABS: LYMPHOCYTE 6 % (20-40); MONOCYTE 5 % (0-10); NEUTROPHIL 89 % (50-75); TOTAL CELLS COUNTED 100
[2017-09-04 10:17] LABS: ANISOCYTOSIS SLIGHT; LARGE PLATELETS PRESENT; PLATELET ESTIMATE NORMAL (NORMAL)
[2017-09-04] MEDS: hydroCHLOROthiazide-Triamterene 25 mg-37.5 mg Cap UD PO SCH (10:36)
[2017-09-04] MEDS: MethylPREDNISolone 40 mg Vial IVP SCH ×2 (10:36→21:26)
[2017-09-04] MEDS ORDERED: Potassium Chloride 20 mEq ER Tab PO ONE (12:47)
--- NOTE | 2017-09-04 13:23 | PCM.IRP ---
History of Present Illness - History of Present Illness History of Present Illness: IR consulted for right lung biopsy. CT reviewed. Right middle lobe atelectasis ( post obstructive?) or PNA. There are several 8 mm nodules . These are too small for CT guided biopsy. Recommend repeat CT scan in one month. Will reevaluate for biopsy. Objective - Vital Signs/Intake and Output Vital Signs (last 24 hours): Vital Signs - 24 hr 09/03/17 09/03/17 09/03/17 15:50 16:00 23:36 Temperature 97.3 F L Pulse Rate 78 67 79 Respiratory 20 Rate Blood Pressure 152/88 H O2 Sat by Pulse 96 Oximetry 09/03/17 09/03/17 09/04/17 23:48 23:55 04:17 Temperature 97.2 F L Pulse Rate 64 75 63 Respiratory 20 Rate Blood Pressure 148/85 O2 Sat by Pulse 98 Oximetry 09/04/17 09/04/17 09/04/17 05:26 08:46 11:32 Temperature 97.9 F Pulse Rate 72 83 83 Respiratory 20 Rate Blood Pressure 139/83 O2 Sat by Pulse 97 Oximetry Intake and Output (last 12 hours): Intake & Output 09/03/17 09/04/17 09/04/17 18:59 06:59 18:59 Intake Total 400 480 Balance 400 480 Intake: Oral 400 480 Other: # Voids Urine, Voided 2 - Medications Medications: Current Medications Acetaminophen (Tylenol 325mg Tab) 650 mg PO Q6 PRN PRN Reason: Fever >100.4 F Albuterol/Ipratropium (Duoneb 3 Mg/0.5 Mg (3 Ml) Ud) 3 ml INH RQ2 PRN PRN Reason: Shortness of Breath Albuterol/Ipratropium (Duoneb 3 Mg/0.5 Mg (3 Ml) Ud) 3 ml INH RQ4 [facility] Last Admin: 09/04/17 11:31 Dose: 3 ml Alprazolam (Xanax) 0.25 mg PO BID PRN PRN Reason: Anxiety Stop: 09/09/17 10:01 Last Admin: 09/03/17 21:10 Dose: 0.25 mg Donepezil HCl (Aricept) 10 mg PO HS [facility] Last Admin: 09/03/17 21:10 Dose: 10 mg Famotidine (Pepcid) 20 mg PO BID [facility] Last Admin: 09/04/17 10:36 Dose: 20 mg Heparin Sodium (Porcine) (Heparin) 5,000 units SC Q12 [facility] Last Admin: 09/04/17 10:36 Dose: 5,000 units Imipenem/Cilastatin Sodium 500 (mg/ Sodium Chloride) 100 mls @ 100 mls/hr IVPB Q12H [facility] PRN Reason: Protocol Last Admin: 09/04/17 11:00 Dose: 100 mls/hr Loratadine (Claritin) 10 mg PO HS PRN PRN Reason: Allergy symptoms Last Admin: 09/03/17 21:10 Dose: 10 mg Methylprednisolone (Solu-Medrol) 40 mg IVP Q12 [facility] Last Admin: 09/04/17 10:36 Dose: 40 mg Quetiapine Fumarate (Seroquel) 25 mg PO DAILY [facility] Last Admin: 09/04/17 10:36 Dose: 25 mg Fluticasone/Salmeterol (Advair Diskus 250/50) 1 puff INH RQ12 [facility] Last Admin: 09/04/17 08:45 Dose: 1 puff Triamterene/HCTZ (Dyazide 25 Mg-37.5 Mg) 1 cap PO DAILY [facility] Last Admin: 09/04/17 10:36 Dose: 1 cap - Labs Labs (last 24 hours): Laboratory Results - last 24 hr 09/04/17 09/04/17 08:50 08:50 WBC 13.2 H RBC 4.92 Hgb 13.9 Hct 40.4 MCV 82.3 MCH 28.2 MCHC 34.3 RDW 15.4 H Plt Count 240 MPV 8.6 Neut % (Auto) 86.2 H Lymph % (Auto) 9.6 L [place] % (Auto) 3.9 Eos % (Auto) 0.0 Baso % (Auto) 0.3 Neut # (Auto) 11.4 H Lymph # (Auto) 1.3 [place] # (Auto) 0.5 Eos # (Auto) 0.0 Baso # (Auto) 0.0 Neutrophils % (Manual) 89 H Lymphocytes % (Manual) 6 L Monocytes % (Manual) 5 Platelet Estimate Normal Large Platelets Present Anisocytosis (manual) Slight Sodium 140 Potassium 3.5 L Chloride 103 Carbon Dioxide 23 Anion Gap 18 BUN 21 H Creatinine 1.3 Est GFR ( Amer) > 60 Est GFR (Non-Af Amer) 56 Random Glucose 204 H Calcium 9.1 Phosphorus 5.0 H Magnesium 2.1 Total Bilirubin 0.4 AST 108 H ALT 135 H Alkaline Phosphatase 184 H Total Protein 7.9 Albumin 4.0 Globulin 3.9 Albumin/Globulin Ratio 1.0
--- NOTE | 2017-09-04 15:05 | CP.PCM.PN ---
Subjective - Date & Time of Evaluation Date of Evaluation: 09/04/17 Time of Evaluation: 15:02 - Subjective Subjective: Patient seen and examined at bedside. Patient resting comfortably in bed with no new complaints at this time. Patient wearing BiPAP but says he is only wearing it because he though he had too. He is not short of breath. I told the patient it is not necessary to use unless he feels very short of breath. Patient says he feels much better than he did when he came into the ER. Patient denies any chest pain, SOB, palpitations, abdominal pain, n/v/d/c, and lower extremity pain/swelling. Objective - Vital Signs/Intake and Output Vital Signs (last 24 hours): Temp Pulse Resp BP Pulse Ox 97.9 F 83 20 139/83 97 09/04/17 08:46 09/04/17 11:32 09/04/17 08:46 09/04/17 08:46 09/04/17 08:46 Intake and Output: 09/04/17 09/04/17 06:59 18:59 Intake Total 480 Balance 480 - Medications Medications: Current Medications Acetaminophen (Tylenol 325mg Tab) 650 mg PO Q6 PRN PRN Reason: Fever >100.4 F Albuterol/Ipratropium (Duoneb 3 Mg/0.5 Mg (3 Ml) Ud) 3 ml INH RQ2 PRN PRN Reason: Shortness of Breath Albuterol/Ipratropium (Duoneb 3 Mg/0.5 Mg (3 Ml) Ud) 3 ml INH RQ4 [facility] Last Admin: 09/04/17 11:31 Dose: 3 ml Alprazolam (Xanax) 0.25 mg PO BID PRN PRN Reason: Anxiety Stop: 09/09/17 10:01 Last Admin: 09/03/17 21:10 Dose: 0.25 mg Donepezil HCl (Aricept) 10 mg PO HS [facility] Last Admin: 09/03/17 21:10 Dose: 10 mg Famotidine (Pepcid) 20 mg PO BID [facility] Last Admin: 09/04/17 10:36 Dose: 20 mg Heparin Sodium (Porcine) (Heparin) 5,000 units SC Q12 [facility] Last Admin: 09/04/17 10:36 Dose: 5,000 units Imipenem/Cilastatin Sodium 500 (mg/ Sodium Chloride) 100 mls @ 100 mls/hr IVPB Q12H [facility] PRN Reason: Protocol Last Admin: 09/04/17 11:00 Dose: 100 mls/hr Loratadine (Claritin) 10 mg PO HS PRN PRN Reason: Allergy symptoms Last Admin: 09/03/17 21:10 Dose: 10 mg Methylprednisolone (Solu-Medrol) 40 mg IVP Q12 [facility] Last Admin: 09/04/17 10:36 Dose: 40 mg Quetiapine Fumarate (Seroquel) 25 mg PO DAILY [facility] Last Admin: 09/04/17 10:36 Dose: 25 mg Fluticasone/Salmeterol (Advair Diskus 250/50) 1 puff INH RQ12 [facility] Last Admin: 09/04/17 08:45 Dose: 1 puff Triamterene/HCTZ (Dyazide 25 Mg-37.5 Mg) 1 cap PO DAILY [facility] Last Admin: 09/04/17 10:36 Dose: 1 cap - Labs Labs: 09/04/17 08:50 09/04/17 08:50 - Additional Findings Additional findings: - Constitutional Appears: Non-toxic, No Acute Distress - Head Exam Head Exam: ATRAUMATIC, NORMAL INSPECTION, NORMOCEPHALIC - Eye Exam Eye Exam: EOMI, Normal appearance, PERRL - ENT Exam ENT Exam: Mucous Membranes Moist - Respiratory Exam Respiratory Exam: Rhonchi, Wheezes (R>L ), NORMAL BREATHING PATTERN. absent: Rales - Cardiovascular Exam Cardiovascular Exam: RRR, +S1, +S2 - GI/Abdominal Exam GI & Abdominal Exam: Soft, Normal Bowel Sounds. absent: Distended, Tenderness - Extremities Exam Extremities Exam: Normal Inspection. absent: Calf Tenderness, Pedal Edema - Neurological Exam Neurological Exam: Alert, Awake, Oriented x3 - Psychiatric Exam Psychiatric exam: Anxious, Normal Mood - Skin Skin Exam: Dry, Intact, Normal Color, Warm Assessment and Plan - Assessment and Plan (Free Text) Plan: Pneumonia * Pulmonology consult (Dr. Bueno) - help appreciated * ECG: tachycardia with left atrial enlargement * Procal <0.05 * BiPAP prn * Negative flu * Negative legionella * Negative blood cultures * sputum culture: rare GPCs, final results pending Imaging * CXR: Localized dense the consolidation seen in the right lateral mid to lower lung zone and left suprahilar region with patchy infiltrate in the right lung base and to a lesser degree right upper lobe. Patchy infiltrate changes throughout the left lung. * CT of chest: Dense consolidation right middle lobe likely representing a combination of atelectasis and pneumonia the likely postobstructive of sequela due to a large hilar mass and/or conglomeration of adenopathy. There are interstitial and scattered patchy nodular infiltrate changes within both lung bases right greater than left as well as right upper lobe. Honeycombing and fibrosis seen in the left upper lobe with minimal suspected early infiltrate changes seen in the posterior upper lung field as well bordering the fissure. There is a small discrete nodular density right lung apex measuring approximately 8 mm. Follow-up CT scan 3-6 months recommended to assess for any changes. Significant mediastinal adenopathy as described. Meds: * Primaxin 500 mg po q12 * Duonebs Q2 prn and Q4 elan * Advair BID * Solumedrol 40 mg IV Q12 Right Lung Mass * As seen on imaging above * Pulmonology consult (Dr. Bueno) - help appreciated * Plan for bronchoscopy 09/05 for biopsy * IR Consult * Mass not amenable to CT guided biopsy Chest pain * Likely secondary to above * Troponin negative x3 * ECG as above * BNP 34.6 Transaminitis * Hep panel negative * trending down History of HTN * continue home triamterene Tobacco abuse * Discussed the adverse effects of tobacco abuse and recommended cessation Prophylaxis * DVT: heparin and SCDs * GI: pepcid for history of gastritis * Claritin PRN allergies
--- NOTE | 2017-09-04 15:05 | CP.PCM.PN ---
Subjective - Date & Time of Evaluation Date of Evaluation: 09/04/17 Time of Evaluation: 08:00 - Subjective Subjective: Patient seen and examined at bedside, resting comfortably. No acute events overnight per nursing. Today he feels much better and has no complaints other than a cough and wheezing. Explained to the patient that his mass needs to be biopsied and will tentatively schedule for tomorrow. Assessment and Plan: 1. Lung mass - CT Chest 09/02: small discrete nodular density in the right lung apex measuring at 8 mm - bronchoscopy in the OR tomorrow for biopsy 2. Pneumonia - afebrile - CT Chest 09/02: Consolidation in the right middle lobe representing atelectasis and pneumonia, honeycombing and fibrosis in the left upper lobe - CBC 09/03: WBC 13.1 - Procalc 09/02: <0.05 - sputum culture 09/02: rare gram positive cocci, final results pending - BiPAP (19/09) on standby - on primaxin - solu-medrol 3. Tobacco use disorder - patient is willing to try a tobacco independence program Objective - Vital Signs/Intake and Output Vital Signs (last 24 hours): Temp Pulse Resp BP Pulse Ox 97.9 F 83 20 139/83 97 09/04/17 08:46 09/04/17 11:32 09/04/17 08:46 09/04/17 08:46 09/04/17 08:46 Intake and Output: 09/04/17 09/04/17 06:59 18:59 Intake Total 480 Balance 480 - Medications Medications: Current Medications Acetaminophen (Tylenol 325mg Tab) 650 mg PO Q6 PRN PRN Reason: Fever >100.4 F Albuterol/Ipratropium (Duoneb 3 Mg/0.5 Mg (3 Ml) Ud) 3 ml INH RQ2 PRN PRN Reason: Shortness of Breath Albuterol/Ipratropium (Duoneb 3 Mg/0.5 Mg (3 Ml) Ud) 3 ml INH RQ4 [facility] Last Admin: 09/04/17 11:31 Dose: 3 ml Alprazolam (Xanax) 0.25 mg PO BID PRN PRN Reason: Anxiety Stop: 09/09/17 10:01 Last Admin: 09/03/17 21:10 Dose: 0.25 mg Donepezil HCl (Aricept) 10 mg PO HS LISA Last Admin: 09/03/17 21:10 Dose: 10 mg Famotidine (Pepcid) 20 mg PO BID [facility] Last Admin: 09/04/17 10:36 Dose: 20 mg Heparin Sodium (Porcine) (Heparin) 5,000 units SC Q12 [facility] Last Admin: 09/04/17 10:36 Dose: 5,000 units Imipenem/Cilastatin Sodium 500 (mg/ Sodium Chloride) 100 mls @ 100 mls/hr IVPB Q12H LISA PRN Reason: Protocol Last Admin: 09/04/17 11:00 Dose: 100 mls/hr Loratadine (Claritin) 10 mg PO HS PRN PRN Reason: Allergy symptoms Last Admin: 09/03/17 21:10 Dose: 10 mg Methylprednisolone (Solu-Medrol) 40 mg IVP Q12 [facility] Last Admin: 09/04/17 10:36 Dose: 40 mg Quetiapine Fumarate (Seroquel) 25 mg PO DAILY [facility] Last Admin: 09/04/17 10:36 Dose: 25 mg Fluticasone/Salmeterol (Advair Diskus 250/50) 1 puff INH RQ12 [facility] Last Admin: 09/04/17 08:45 Dose: 1 puff Triamterene/HCTZ (Dyazide 25 Mg-37.5 Mg) 1 cap PO DAILY [facility] Last Admin: 09/04/17 10:36 Dose: 1 cap - Labs Labs: 09/04/17 08:50 09/04/17 08:50
[2017-09-05] MEDS: Albuterol-Ipratrop 3 mg / 0.5 (3 ml) UD INH SCH ×7 (03:52→23:50)
[2017-09-05 07:26] LABS: BASO # 0.1 K/uL (0.0-0.2); BASO % 0.4 % (0.0-2.0); EOS % 0.1 % (0.0-4.0); HEMOGLOBIN 14.9 g/dL (12.0-18.0); LYMPH # 1.5 K/uL (1.0-4.3); LYMPH % 9.9 % (20.0-40.0); MEAN CELL VOLUME 82.4 fL (80.0-94.0); MEAN CORPUSCULAR HEMOGLOBIN 27.8 pg (27.0-31.0); MEAN CORPUSCULAR HGB CONC 33.7 g/dL (33.0-37.0); MEAN PLATELET VOLUME 8.5 fL (7.2-11.7); MONO # 1.1 K/uL (0.0-0.8); MONO % 6.8 % (0.0-10.0); NEUT # 12.9 K/uL (1.8-7.0); NEUT % 82.8 % (50.0-75.0); PLATELET COUNT 273 K/uL (130-400); RBC 5.36 Mil/uL (4.40-5.90); WHITE BLOOD COUNT 15.6 K/uL (4.8-10.8)
[2017-09-05 08:09] LABS: ALB/GLOB RATIO 1.1 (1.0-2.1); ALBUMIN 4.4 g/dL (3.5-5.0); ALT/SGPT 173 U/L (21-72); AST/SGOT 152 U/L (17-59); BLOOD UREA NITROGEN 21 mg/dL (9-20); CALCIUM 9.5 mg/dl (8.6-10.4); GFR AFRICAN-AMERICAN > 60; GFR NON-AFRICAN AMERICAN > 60
[2017-09-05 08:21] LABS: LYMPHOCYTE 6 % (20-40); MONOCYTE 5 % (0-10); NEUTROPHIL 89 % (50-75); TOTAL CELLS COUNTED 100
[2017-09-05 08:22] LABS: ANISOCYTOSIS SLIGHT; PLATELET ESTIMATE NORMAL (NORMAL)
--- NOTE | 2017-09-05 08:46 | CARD ---
APPROVED REPORT EKG Measurement Heart [id number] <Conclusion> Normal sinus rhythm Nonspecific ST and T wave abnormality Abnormal ECG
--- NOTE | 2017-09-05 08:53 | CARD ---
APPROVED REPORT EKG Measurement Heart [id number] <Conclusion> Normal sinus rhythm Possible Left atrial enlargement Nonspecific ST and T wave abnormality Abnormal ECG
[2017-09-05] MEDS ORDERED: Lidocaine Hydrochloride 0 ML INJ ONE (09:17)
[2017-09-05] MEDS ORDERED: Sodium Chloride 0.9% 20 ML IV ONE (09:17)
[2017-09-05] MEDS ORDERED: EPINEPHrine 1 mg/ml (1:1000) Inj ONE (09:17)
[2017-09-05] MEDS: MethylPREDNISolone 40 mg Vial IVP SCH (09:22)
[2017-09-05] MEDS: Fluticasone-Salmeterol 250-50mcg Diskus INH SCH ×2 (09:30→20:07)
[2017-09-05] MEDS ORDERED: Propofol 10 mg/ml Inj (20 ML) ONE ×2 (10:08→10:36)
[2017-09-05] MEDS ORDERED: Midazolam 2 MG/2 ML VIAL ONE (10:08)
[2017-09-05] MEDS ORDERED: Succinylcholine Chloride 20 mg/ml Syr (5 ml) IV ONE (10:36)
[2017-09-05] MEDS: hydroCHLOROthiazide-Triamterene 25 mg-37.5 mg Cap UD PO SCH ×2 (10:37→12:43)
--- NOTE | 2017-09-05 11:52 | RAD ---
HISTORY: S/P BRONCHOSCOPY COMPARISON: CT chest dated 09/02/2017. FINDINGS: LUNGS: Pulmonary vascular congestion. Right perihilar consolidation. Dense peripheral right mid/ lower lung consolidation. PLEURA: No significant pleural effusion identified, no pneumothorax apparent. CARDIOVASCULAR: Cardiomediastinal silhouette stably enlarged. OSSEOUS STRUCTURES: Right reverse total shoulder arthroplasty. Unchanged. VISUALIZED UPPER ABDOMEN: Normal. OTHER FINDINGS: None. IMPRESSION: Stable pulmonary vascular congestion and right perihilar and peripheral consolidation. No significant interval change. No appreciable pneumothorax.
--- NOTE | 2017-09-05 14:56 | CP.PCM.PN ---
<Jessie Tristan - Last Filed: 09/05/17 14:51> Subjective - Date & Time of Evaluation Date of Evaluation: 09/05/17 Time of Evaluation: 14:51 - Subjective Subjective: Patient seen and examined at bedside. Patient resting comfortably in bed with no new complaints at this time. I saw the patient up and walking to and from his bathroom this morning without difficulty or shortness of breath. Patient has verbalized understanding that he is going for bronchoscopy today and why he is going. Patient continues to feel like he is improving and denies chest pain, SOB, palpitations, abdominal pain, n/v/d/c, and lower extremity pain/swelling. Objective - Vital Signs/Intake and Output Vital Signs (last 24 hours): Temp Pulse Resp BP Pulse Ox 97.6 F 89 12 148/78 96 09/05/17 12:15 09/05/17 12:58 09/05/17 12:15 09/05/17 12:15 09/05/17 12:15 Intake and Output: 09/05/17 09/05/17 06:59 18:59 Intake Total 1000 Balance 1000 - Medications Medications: Current Medications Acetaminophen (Tylenol 325mg Tab) 650 mg PO Q6 PRN PRN Reason: Fever >100.4 F Albuterol/Ipratropium (Duoneb 3 Mg/0.5 Mg (3 Ml) Ud) 3 ml INH RQ2 PRN PRN Reason: Shortness of Breath Albuterol/Ipratropium (Duoneb 3 Mg/0.5 Mg (3 Ml) Ud) 3 ml INH RQ4 [facility] Last Admin: 09/05/17 11:22 Dose: 3 ml Alprazolam (Xanax) 0.25 mg PO BID PRN PRN Reason: Anxiety Stop: 09/09/17 10:01 Last Admin: 09/04/17 21:30 Dose: 0.25 mg Donepezil HCl (Aricept) 10 mg PO HS [facility] Last Admin: 09/04/17 21:25 Dose: 10 mg Famotidine (Pepcid) 20 mg PO BID [facility] Last Admin: 09/05/17 10:37 Dose: Not Given Heparin Sodium (Porcine) (Heparin) 5,000 units SC Q12 [facility] Last Admin: 09/05/17 09:23 Dose: Not Given Aztreonam 2 gm/ Sodium (Chloride) 100 mls @ 200 mls/hr IVPB Q8H [facility] PRN Reason: Protocol Loratadine (Claritin) 10 mg PO HS PRN PRN Reason: Allergy symptoms Last Admin: 09/04/17 21:30 Dose: 10 mg Methylprednisolone (Solu-Medrol) 40 mg IVP Q12 [facility] Last Admin: 09/05/17 09:22 Dose: 40 mg Nicotine (Nicoderm Cq) 1 patch TD DAILY [facility] Last Admin: 09/05/17 12:43 Dose: 1 patch Quetiapine Fumarate (Seroquel) 25 mg PO DAILY [facility] Last Admin: 09/05/17 12:43 Dose: 25 mg Fluticasone/Salmeterol (Advair Diskus 250/50) 1 puff INH RQ12 [facility] Last Admin: 09/05/17 09:30 Dose: 1 puff Triamterene/HCTZ (Dyazide 25 Mg-37.5 Mg) 1 cap PO DAILY [facility] Last Admin: 09/05/17 12:43 Dose: 1 cap - Labs Labs: 09/05/17 07:03 09/05/17 07:03 - Additional Findings Additional findings: - Constitutional Appears: Non-toxic, No Acute Distress - Head Exam Head Exam: ATRAUMATIC, NORMAL INSPECTION, NORMOCEPHALIC - Eye Exam Eye Exam: EOMI, Normal appearance, PERRL - ENT Exam ENT Exam: Mucous Membranes Moist - Respiratory Exam Respiratory Exam: NORMAL BREATHING PATTERN. absent: Rales, Rhonchi, Wheezes - Cardiovascular Exam Cardiovascular Exam: RRR, +S1, +S2 - GI/Abdominal Exam GI & Abdominal Exam: Soft, Normal Bowel Sounds. absent: Distended, Tenderness - Extremities Exam Extremities Exam: Normal Inspection. absent: Calf Tenderness, Pedal Edema - Neurological Exam Neurological Exam: Alert, Awake, Oriented x3 - Psychiatric Exam Psychiatric exam: Anxious, Normal Mood - Skin Skin Exam: Dry, Intact, Normal Color, Warm Assessment and Plan - Assessment and Plan (Free Text) Plan: Pneumonia * Pulmonology consult (Dr. Bueno) - help appreciated * ECG: tachycardia with left atrial enlargement * Procal <0.05 * BiPAP prn * Mycoplasma pneumonia IgG 4.40 (High) * Negative flu * Negative legionella * Negative blood cultures * sputum culture: rare GPCs, final results pending Imaging * CXR: Localized dense the consolidation seen in the right lateral mid to lower lung zone and left suprahilar region with patchy infiltrate in the right lung base and to a lesser degree right upper lobe. Patchy infiltrate changes throughout the left lung. * CT of chest: Dense consolidation right middle lobe likely representing a combination of atelectasis and pneumonia the likely postobstructive of sequela due to a large hilar mass and/or conglomeration of adenopathy. There are interstitial and scattered patchy nodular infiltrate changes within both lung bases right greater than left as well as right upper lobe. Honeycombing and fibrosis seen in the left upper lobe with minimal suspected early infiltrate changes seen in the posterior upper lung field as well bordering the fissure. There is a small discrete nodular density right lung apex measuring approximately 8 mm. Follow-up CT scan 3-6 months recommended to assess for any changes. Significant mediastinal adenopathy as described. Meds: * Discontinued Primaxin 500 mg po q12 due to elevating transaminitis * Started Aztreonam on 09/05 * Duonebs Q2 prn and Q4 elan * Advair BID * Solumedrol 40 mg IV Q12 Right Lung Mass * As seen on imaging above * Pulmonology consult (Dr. Bueno) - help appreciated * Bronchoscopy done 09/05 with biopsy of right middle lobe and subcarinal area, right middle lobe mass slides, and right middle lobe washings for cytology * IR Consult * Mass not amenable to CT guided biopsy Chest pain * Likely secondary to above * Troponin negative x3 * ECG as above * BNP 34.6 Transaminitis * Hep panel negative * likely due to Primaxin - was DC'd and aztreonam started instead History of HTN * continue home triamterene Tobacco abuse * Discussed the adverse effects of tobacco abuse and recommended cessation Prophylaxis * DVT: heparin and SCDs * GI: pepcid for history of gastritis * Claritin PRN allergies <Anson Hung - Last Filed: 09/05/17 16:11> Objective - Vital Signs/Intake and Output Vital Signs (last 24 hours): Temp Pulse Resp BP Pulse Ox 98.4 F 105 H 20 139/81 95 09/05/17 15:43 09/05/17 15:43 09/05/17 15:43 09/05/17 15:43 09/05/17 15:43 Intake and Output: 09/05/17 09/05/17 06:59 18:59 Intake Total 1400 Balance 1400 - Medications Medications: Current Medications Acetaminophen (Tylenol 325mg Tab) 650 mg PO Q6 PRN PRN Reason: Fever >100.4 F Albuterol/Ipratropium (Duoneb 3 Mg/0.5 Mg (3 Ml) Ud) 3 ml INH RQ2 PRN PRN Reason: Shortness of Breath Albuterol/Ipratropium (Duoneb 3 Mg/0.5 Mg (3 Ml) Ud) 3 ml INH RQ4 [facility] Last Admin: 09/05/17 11:22 Dose: 3 ml Alprazolam (Xanax) 0.25 mg PO BID PRN PRN Reason: Anxiety Stop: 09/09/17 10:01 Last Admin: 09/04/17 21:30 Dose: 0.25 mg Donepezil HCl (Aricept) 10 mg PO HS [facility] Last Admin: 09/04/17 21:25 Dose: 10 mg Famotidine (Pepcid) 20 mg PO BID [facility] Last Admin: 09/05/17 10:37 Dose: Not Given Heparin Sodium (Porcine) (Heparin) 5,000 units SC Q12 [facility] Last Admin: 09/05/17 09:23 Dose: Not Given Aztreonam 2 gm/ Sodium (Chloride) 100 mls @ 200 mls/hr IVPB Q8H [facility] PRN Reason: Protocol Loratadine (Claritin) 10 mg PO HS PRN PRN Reason: Allergy symptoms Last Admin: 09/04/17 21:30 Dose: 10 mg Methylprednisolone (Solu-Medrol) 20 mg IVP Q12 [facility] Nicotine (Nicoderm Cq) 1 patch TD DAILY [facility] Last Admin: 09/05/17 12:43 Dose: 1 patch Quetiapine Fumarate (Seroquel) 25 mg PO DAILY [facility] Last Admin: 09/05/17 12:43 Dose: 25 mg Fluticasone/Salmeterol (Advair Diskus 250/50) 1 puff INH RQ12 [facility] Last Admin: 09/05/17 09:30 Dose: 1 puff Triamterene/HCTZ (Dyazide 25 Mg-37.5 Mg) 1 cap PO DAILY [facility] Last Admin: 09/05/17 12:43 Dose: 1 cap - Labs Labs: 09/05/17 07:03 09/05/17 07:03 Attending/Attestation - Attestation I have personally seen and examined this patient.: Yes I have fully participated in the care of the patient.: Yes I have reviewed all pertinent clinical information, including history, physical exam and plan: Yes Notes (Text): 09/05/17 16:09 Medical attending: Patient was seen and examined by me. Agree with the above note by the resident The patient was not in any acute distress when we saw him. He was pending bronchoscopy this morning when we saw him As mentioned previously he had a CT scan which showed many small lesions - however to small for IR biopsy to be done. His breathing has been better than previously. He is now able to walk withouyt too many problemns thank you Anson Hung
[2017-09-05] MEDS ORDERED: MethylPREDNISolone 40 mg Vial IVP SCH (15:04)
[2017-09-05 15:44] VITALS: RESP 20
--- NOTE | 2017-09-05 16:36 | CP.PCM.PN ---
Subjective - Date & Time of Evaluation Date of Evaluation: 09/05/17 Time of Evaluation: 12:30 - Subjective Subjective: Patient seen and examined at bedside, resting comfortably. No acute events overnight per nursing. Tolerated bronchoscopy with right middle lobe and subcarinal biopsies without issues. Assessment and Plan: 1. Lung mass - CT Chest 09/02: small discrete nodular density in the right lung apex measuring at 8 mm - bronchoscopy with right middle lobe biopsy, subcarinal biopsy and right middle lobe washings, results pending 2. Pneumonia - afebrile - CT Chest 09/02: Consolidation in the right middle lobe representing atelectasis and pneumonia, honeycombing and fibrosis in the left upper lobe - CBC 09/03: WBC 13.1 - Procalc 09/02: <0.05 - sputum culture 09/02: rare gram positive cocci, final results pending - BiPAP (19/09) on standby - on primaxin - solu-medrol Objective - Vital Signs/Intake and Output Vital Signs (last 24 hours): Temp Pulse Resp BP Pulse Ox 98.4 F 105 H 20 139/81 95 09/05/17 15:43 09/05/17 15:43 09/05/17 15:43 09/05/17 15:43 09/05/17 15:43 Intake and Output: 09/05/17 09/05/17 06:59 18:59 Intake Total 1400 Balance 1400 - Medications Medications: Current Medications Acetaminophen (Tylenol 325mg Tab) 650 mg PO Q6 PRN PRN Reason: Fever >100.4 F Albuterol/Ipratropium (Duoneb 3 Mg/0.5 Mg (3 Ml) Ud) 3 ml INH RQ2 PRN PRN Reason: Shortness of Breath Albuterol/Ipratropium (Duoneb 3 Mg/0.5 Mg (3 Ml) Ud) 3 ml INH RQ4 [facility] Last Admin: 09/05/17 11:22 Dose: 3 ml Alprazolam (Xanax) 0.25 mg PO BID PRN PRN Reason: Anxiety Stop: 09/09/17 10:01 Last Admin: 09/04/17 21:30 Dose: 0.25 mg Donepezil HCl (Aricept) 10 mg PO HS [facility] Last Admin: 09/04/17 21:25 Dose: 10 mg Famotidine (Pepcid) 20 mg PO BID [facility] Last Admin: 09/05/17 10:37 Dose: Not Given Heparin Sodium (Porcine) (Heparin) 5,000 units SC Q12 [facility] Last Admin: 09/05/17 09:23 Dose: Not Given Aztreonam 2 gm/ Sodium (Chloride) 100 mls @ 200 mls/hr IVPB Q8H [facility]ISA PRN Reason: Protocol Loratadine (Claritin) 10 mg PO HS PRN PRN Reason: Allergy symptoms Last Admin: 09/04/17 21:30 Dose: 10 mg Methylprednisolone (Solu-Medrol) 20 mg IVP Q12 [facility] Nicotine (Nicoderm Cq) 1 patch TD DAILY [facility] Last Admin: 09/05/17 12:43 Dose: 1 patch Quetiapine Fumarate (Seroquel) 25 mg PO DAILY [facility] Last Admin: 09/05/17 12:43 Dose: 25 mg Fluticasone/Salmeterol (Advair Diskus 250/50) 1 puff INH RQ12 [facility] Last Admin: 09/05/17 09:30 Dose: 1 puff Triamterene/HCTZ (Dyazide 25 Mg-37.5 Mg) 1 cap PO DAILY [facility] Last Admin: 09/05/17 12:43 Dose: 1 cap - Labs Labs: 09/05/17 07:03 09/05/17 07:03
[2017-09-05] MEDS: Aztreonam 2 GM in Sodium Chloride 0.9% 100 ML IVPB SCH (16:49)
--- NOTE | 2017-09-05 22:56 | CP.PCM.CON ---
History of Present Illness - History of Present Illness History of Present Illness: 62 year old male with a history of tobacco abuse, anxiety, HTN, admitted with progressive dyspnea with exertion, found to have a lung mass with mediastinal lymphoadnopathy s/p EBUS with biopsy. The patient notes to progressive dyspnea with exertion. He notes to an intentional 25 pound weight loss with dieting. He feels his energy level has declined and he is becoming more weak. Past medical history: tobacco abuse, HTN, anxiety Past surgical history: Shoulder surgery Family history: Daughter has breast cancer Social history: Smokes 1/2pp x 45 years, denies alcohol and illicit drug use. Allergies: Penicillins Review of systems: All remaining review of systems including HEENT, cardiovascular, respiratory, gastrointestinal, genitourinary, musculoskeletal, dermatologic, neurologic, and psychiatric are negative unless mentioned in the HPI. Past Patient History - Past Medical History & Family History Past Medical History?: Yes - Past Social History Smoking Status: Current Some Days Smoker - CARDIAC Hx Hypertension: Yes - PULMONARY Hx Respiratory Disorders: No - NEUROLOGICAL Hx Neurological Disorder: No - HEENT Hx HEENT Problems: No - RENAL Hx Chronic Kidney Disease: No - ENDOCRINE/METABOLIC Hx Endocrine Disorders: No - HEMATOLOGICAL/ONCOLOGICAL Hx Blood Disorders: No - INTEGUMENTARY Hx Dermatological Problems: No - MUSCULOSKELETAL/RHEUMATOLOGICAL Hx Arthritis: Yes - GASTROINTESTINAL Hx Gastritis: Yes - GENITOURINARY/GYNECOLOGICAL Hx Genitourinary Disorders: No - PSYCHIATRIC Hx Anxiety: Yes Hx Depression: No Hx Post Traumatic Stress Disorder: No Hx Substance Use: No - SURGICAL HISTORY Hx Surgeries: Yes Hx Arthroscopy: No Hx Open Reduction Internal Fixation: No Hx Orthopedic Surgery: Yes (RIGHT SHOULDER ROTO CUFF) - ANESTHESIA Hx Anesthesia: Yes Hx Anesthesia Reactions: No Hx Malignant Hyperthermia: No Meds Allergies/Adverse Reactions: Allergies Allergy/AdvReac Type Severity Reaction Status Date / Time Penicillins Allergy Intermediate DIZZINESS Verified 09/07/16 07:39 - Medications Medications: Current Medications Acetaminophen (Tylenol 325mg Tab) 650 mg PO Q6 PRN PRN Reason: Fever >100.4 F Albuterol/Ipratropium (Duoneb 3 Mg/0.5 Mg (3 Ml) Ud) 3 ml INH RQ2 PRN PRN Reason: Shortness of Breath Albuterol/Ipratropium (Duoneb 3 Mg/0.5 Mg (3 Ml) Ud) 3 ml INH RQ4 [facility] Last Admin: 09/05/17 20:07 Dose: 3 ml Alprazolam (Xanax) 0.25 mg PO BID PRN PRN Reason: Anxiety Stop: 09/09/17 10:01 Last Admin: 09/05/17 21:02 Dose: 0.25 mg Donepezil HCl (Aricept) 10 mg PO HS [facility] Last Admin: 09/05/17 21:03 Dose: 10 mg Famotidine (Pepcid) 20 mg PO BID [facility] Last Admin: 09/05/17 18:01 Dose: 20 mg Heparin Sodium (Porcine) (Heparin) 5,000 units SC Q12 [facility] Last Admin: 09/05/17 21:03 Dose: 5,000 units Aztreonam 2 gm/ Sodium (Chloride) 100 mls @ 200 mls/hr IVPB Q8H [facility]ISA PRN Reason: Protocol Last Admin: 09/05/17 16:49 Dose: 200 mls/hr Loratadine (Claritin) 10 mg PO HS PRN PRN Reason: Allergy symptoms Last Admin: 09/05/17 21:02 Dose: 10 mg Methylprednisolone (Solu-Medrol) 20 mg IVP Q12 [facility] Last Admin: 09/05/17 21:03 Dose: 20 mg Nicotine (Nicoderm Cq) 1 patch TD DAILY [facility] Last Admin: 09/05/17 12:43 Dose: 1 patch Quetiapine Fumarate (Seroquel) 25 mg PO DAILY [facility] Last Admin: 09/05/17 12:43 Dose: 25 mg Fluticasone/Salmeterol (Advair Diskus 250/50) 1 puff INH RQ12 [facility] Last Admin: 09/05/17 20:07 Dose: 1 puff Triamterene/HCTZ (Dyazide 25 Mg-37.5 Mg) 1 cap PO DAILY [facility] Last Admin: 09/05/17 12:43 Dose: 1 cap Physical Exam - Head Exam Head Exam: ATRAUMATIC - Eye Exam Eye Exam: Normal appearance - ENT Exam ENT Exam: Mucous Membranes Dry - Respiratory Exam Respiratory Exam: NORMAL BREATHING PATTERN - Cardiovascular Exam Cardiovascular Exam: +S1, +S2 - GI/Abdominal Exam GI & Abdominal Exam: Normal Bowel Sounds - Extremities Exam Extremities exam: Positive for: normal inspection - Neurological Exam Neurological exam: Oriented x3 - Psychiatric Exam Psychiatric exam: Normal Affect, Normal Mood - Skin Skin Exam: Warm Results - Vital Signs Recent Vital Signs: Last Vital Signs Temp 98.4 F 09/05/17 15:43 Pulse 105 H 09/05/17 15:43 Resp 20 09/05/17 15:43 BP 139/81 09/05/17 15:43 Pulse Ox 95 09/05/17 15:43 - Labs Result Diagrams: 09/05/17 07:03 09/05/17 07:03 Labs: Laboratory Results - last 24 hr 09/02/17 09/02/17 09/05/17 08:52 08:52 07:03 WBC 15.6 H RBC 5.36 Hgb 14.9 Hct 44.1 MCV 82.4 MCH 27.8 MCHC 33.7 RDW 16.0 H Plt Count 273 MPV 8.5 Neut % (Auto) 82.8 H Lymph % (Auto) 9.9 L [place] % (Auto) 6.8 Eos % (Auto) 0.1 Baso % (Auto) 0.4 Neut # (Auto) 12.9 H Lymph # (Auto) 1.5 [place] # (Auto) 1.1 H Eos # (Auto) 0.0 Baso # (Auto) 0.1 Neutrophils % (Manual) 89 H Lymphocytes % (Manual) 6 L Monocytes % (Manual) 5 Platelet Estimate Normal Anisocytosis (manual) Slight Sodium Potassium Chloride Carbon Dioxide Anion Gap BUN Creatinine Est GFR ( Amer) Est GFR (Non-Af Amer) Random Glucose Calcium Phosphorus Magnesium Total Bilirubin AST ALT Alkaline Phosphatase Total Protein Albumin Globulin Albumin/Globulin Ratio Mycoplasma pneumon IgM 185 S.pneumoniae Type 1 IgG 4.0 S.pneumoniae Type 3 IgG <0.3 S.pneumoniae Type 4 IgG 0.6 S.pneumoniae Type 5 IgG 1.9 S.pneumoniae Type 8 IgG 0.4 S.pneumoniae Type 9 IgG 0.9 S.pneumoniae Typ 12 IgG 2.3 S.pneumoniae Typ 14 IgG 3.4 S.pneumonia Type 19 IgG 2.1 S.pneumonia Type 23 IgG <0.3 S.pneumoniae Typ 26 IgG 0.6 S.pneumoniae Typ 51 IgG <0.3 S.pneumoniae Typ 56 IgG 2.2 S.pneumoniae Typ 68 IgG <0.3 09/05/17 07:03 WBC RBC Hgb Hct MCV MCH MCHC RDW Plt Count MPV Neut % (Auto) Lymph % (Auto) [place] % (Auto) Eos % (Auto) Baso % (Auto) Neut # (Auto) Lymph # (Auto) [place] # (Auto) Eos # (Auto) Baso # (Auto) Neutrophils % (Manual) Lymphocytes % (Manual) Monocytes % (Manual) Platelet Estimate Anisocytosis (manual) Sodium 142 Potassium 4.3 Chloride 104 Carbon Dioxide 20 L Anion Gap 21 H BUN 21 H Creatinine 1.2 Est GFR ( Amer) > 60 Est GFR (Non-Af Amer) > 60 Random Glucose 132 H Calcium 9.5 Phosphorus 4.8 H Magnesium 2.2 Total Bilirubin 0.5 AST 152 H D ALT 173 H D Alkaline Phosphatase 223 H D Total Protein 8.6 H Albumin 4.4 Globulin 4.2 H Albumin/Globulin Ratio 1.1 Mycoplasma pneumon IgM S.pneumoniae Type 1 IgG S.pneumoniae Type 3 IgG S.pneumoniae Type 4 IgG S.pneumoniae Type 5 IgG S.pneumoniae Type 8 IgG S.pneumoniae Type 9 IgG S.pneumoniae Typ 12 IgG S.pneumoniae Typ 14 IgG S.pneumonia Type 19 IgG S.pneumonia Type 23 IgG S.pneumoniae Typ 26 IgG S.pneumoniae Typ 51 IgG S.pneumoniae Typ 56 IgG S.pneumoniae Typ 68 IgG Assessment & Plan (1) Lung mass Assessment and Plan: s/p biopsy ? malignancy will check CT C/A/P and MRI brain to complete staging Status: Acute (2) Leukocytosis Assessment and Plan: on steroids and antibiotics Thank you for this interesting consult. Status: Acute
[2017-09-06] MEDS: Aztreonam 2 GM in Sodium Chloride 0.9% 100 ML IVPB SCH ×2 (00:17→08:48)
[2017-09-06] MEDS: Albuterol-Ipratrop 3 mg / 0.5 (3 ml) UD INH SCH ×3 (03:26→11:15)
--- NOTE | 2017-09-06 06:37 | OP ---
PROCEDURE DATE: 09/05/2017 PREOPERATIVE DIAGNOSIS: Lung mass and lymphadenopathy. POSTOPERATIVE DIAGNOSIS: Lung mass and lymphadenopathy. PROCEDURE: Fiberoptic bronchoscopy with biopsy, bronchioalveolar lavage, followed by endobronchial ultrasound and biopsy of the lymph nodes. SURGEON: Napoleon Bueno MD DESCRIPTION OF PROCEDURE: Fiberoptic bronchoscopy procedure was done after obtaining consent from patient, explaining the patient risks and benefits, which he understood, the procedure was done. After the patient was intubated by anesthesiologist, the bronchoscope was passed through the endotracheal tube into the trachea. The main joe was sharp. First, the bronchoscope was passed from the left. The left main, the left upper, and the left lower all appeared normal. No endobronchial lesion seen. Later, the bronchoscope was pulled back and passed on the right side. The right main, right upper, the right lower, all appeared normal. The right middle, one of the segment was completely obstructed. Biopsy and brushing was done. Later, the bronchoscope was pulled out and endobronchial ultrasound was inserted through the endotracheal tube into the trachea. Subcarinal lymph node biopsy, and biopsy at station 10 was done on the right side. The patient tolerated the procedure well. No complications. Napoleon Bueno MD
[2017-09-06 07:21] LABS: BASO # 0.1 K/uL (0.0-0.2); BASO % 0.3 % (0.0-2.0); EOS % 0.1 % (0.0-4.0); HEMOGLOBIN 15.5 g/dL (12.0-18.0); LYMPH # 2.3 K/uL (1.0-4.3); MEAN CELL VOLUME 81.7 fL (80.0-94.0); MEAN CORPUSCULAR HEMOGLOBIN 28.1 pg (27.0-31.0); MEAN CORPUSCULAR HGB CONC 34.4 g/dL (33.0-37.0); MEAN PLATELET VOLUME 8.2 fL (7.2-11.7); MONO # 1.2 K/uL (0.0-0.8); MONO % 7.3 % (0.0-10.0); NEUT # 12.9 K/uL (1.8-7.0); NEUT % 78.3 % (50.0-75.0); RBC 5.52 Mil/uL (4.40-5.90); RED CELL DISTRIBUTION WIDTH 15.8 % (11.5-14.5); WHITE BLOOD COUNT 16.4 K/uL (4.8-10.8)
[2017-09-06 08:00] LABS: ALBUMIN 4.4 g/dL (3.5-5.0); BLOOD UREA NITROGEN 23 mg/dL (9-20); CALCIUM 9.4 mg/dl (8.6-10.4); GFR AFRICAN-AMERICAN > 60; GFR NON-AFRICAN AMERICAN 56
[2017-09-06 08:01] LABS: ALB/GLOB RATIO 1.1 (1.0-2.1); ALT/SGPT 240 U/L (21-72); AST/SGOT 186 U/L (17-59)
[2017-09-06] MEDS: Fluticasone-Salmeterol 250-50mcg Diskus INH SCH (08:21)
[2017-09-06] MEDS ORDERED: Iodixanol 320 MG/ML 100 ML BOTTLE IV ONE (08:59)
[2017-09-06] MEDS: hydroCHLOROthiazide-Triamterene 25 mg-37.5 mg Cap UD PO SCH (09:22)
--- NOTE | 2017-09-06 11:22 | CT ---
PROCEDURE: CT Chest, Abdomen and Pelvis with intravenous contrast HISTORY: malignancy staging COMPARISON: CT chest 09/02/2017. CT abdomen/ pelvis 02/13/2015. TECHNIQUE: IV dose administered: 100 mL Visipaque 320 Radiation dose: Total exam DLP = 1612.14 mGy-cm. This CT exam was performed using one or more of the following dose reduction techniques: Automated exposure control, adjustment of the mA and/or kV according to patient size, and/or use of iterative reconstruction technique. FINDINGS: CT CHEST WITH CONTRAST: LUNGS: No acute infiltrate. Scattered areas of subpleural fibrosis bilaterally. There is mild cylindrical bronchiectasis in the right lower lobe. There is dense right middle lobe consolidation. This likely represents neoplasm with direct extension to the right hilum. There may also be postobstructive atelectasis/ pneumonia. There is no endobronchial mass or evidence of bronchial occlusion. Numerous small nodular opacities are seen inferior to this right middle lobe consolidation. Nonspecific patchy opacity is seen in the posterior segment of the right upper lobe. MEDIASTINUM: Extensive mediastinal and right hilar lymphadenopathy. Right hilar adenopathy is continuous with right middle lobe consolidation. Unremarkable left hilum. No evidence of thoracic aortic aneurysm. Normal diameter of main pulmonary artery. Normal heart size. LYMPH NODES: As above PLEURA: Unremarkable. No pneumothorax. No pleural fluid. BONES: Unremarkable. OTHER FINDINGS: None. CT ABDOMEN AND PELVIS: LIVER: Innumerable metastases throughout both lobes of the liver. No biliary dilatation. Smooth contour. Normal size and attenuation. GALLBLADDER AND BILE DUCTS: Unremarkable. PANCREAS: Unremarkable. No gross lesion or ductal dilatation. SPLEEN: Unremarkable. ADRENALS: Unremarkable. No mass. KIDNEYS AND URETERS: Numerous bilateral renal cysts, left greater than right. This is unchanged from 02/13/2015. No renal calculus or hydronephrosis. VASCULATURE: Unremarkable. No aortic aneurysm. BOWEL: Unremarkable. No obstruction. No gross mural thickening. APPENDIX: Not identified. No secondary findings. PERITONEUM: Unremarkable. No free fluid. No free air. LYMPH NODES: Unremarkable. No enlarged lymph nodes. BLADDER: Unremarkable. REPRODUCTIVE: Normal prostate BONES: No acute fracture. OTHER FINDINGS: None. IMPRESSION: Right middle lobe consolidation possibly due to neoplasm with or without postobstructive pneumonia or atelectasis. Direct extension to the right hilum and mediastinum with extensive adenopathy. Extensive hepatic metastatic disease. Recommend tissue diagnosis via percutaneous biopsy, mediastinoscopy or bronchoscopy. Additional minor findings as above.
--- NOTE | 2017-09-06 11:49 | MRI ---
PROCEDURE: MRI BRAIN WITH AND WITHOUT CONTRAST HISTORY: malignancy staging COMPARISON: None. TECHNIQUE: Multiplanar, multisequence MR images of the brain were obtained with and without intravenous contrast enhancement. 18 mL Omniscan was injected intravenously. FINDINGS: HEMORRHAGE: None DWI: No evidence of an acute or early subacute infarction. BRAIN PARENCHYMA: There are mild chronic microangiopathic changes. There is no mass, mass effect or abnormal extra-axial fluid collection. The midline sagittal structures are normal. ENHANCEMENT: There is a 2 mm enhancing focus in the right inferior frontal lobe (series 12, image 12. There is no abnormal leptomeningeal enhancement. VENTRICLES: There is mild age-related global parenchymal volume loss and proportionate enlargement of the ventricles and cortical sulci. CRANIUM: There is normal bone marrow signal pattern. ORBITS: Grossly unremarkable. PARANASAL SINUSES/MASTOIDS: Predominantly clear. VASCULAR SYSTEM: There are normal signal voids in the larger intracranial arteries. OTHER FINDINGS: None . IMPRESSION: 1. Solitary 2 mm enhancing focus in the right inferior frontal lobe, nonspecific however small metastatic deposit cannot be entirely excluded with the stated clinical history. Short-term interval follow-up is recommended. 2. Mild chronic microangiopathic changes and mild age-related global parenchymal volume loss.
--- NOTE | 2017-09-06 13:19 | CP.PCM.PN ---
Subjective - Date & Time of Evaluation Date of Evaluation: 09/06/17 Time of Evaluation: 08:30 - Subjective Subjective: the patient seen and examined Status post fiberoptic bronchoscopy biopsy and EBUS BIOPSY OFF SUBCARINAL LYMPH NODE Patient states breathing much better Still having cough but no hemoptysis Objective - Vital Signs/Intake and Output Vital Signs (last 24 hours): Temp Pulse Resp BP Pulse Ox 98.1 F 96 H 20 120/70 94 L 09/06/17 08:51 09/06/17 12:10 09/06/17 08:51 09/06/17 08:51 09/06/17 08:51 - Medications Medications: Current Medications Acetaminophen (Tylenol 325mg Tab) 650 mg PO Q6 PRN PRN Reason: Fever >100.4 F Albuterol/Ipratropium (Duoneb 3 Mg/0.5 Mg (3 Ml) Ud) 3 ml INH RQ2 PRN PRN Reason: Shortness of Breath Albuterol/Ipratropium (Duoneb 3 Mg/0.5 Mg (3 Ml) Ud) 3 ml INH RQ4 [facility] Last Admin: 09/06/17 11:15 Dose: 3 ml Alprazolam (Xanax) 0.25 mg PO BID PRN PRN Reason: Anxiety Stop: 09/09/17 10:01 Last Admin: 09/05/17 21:02 Dose: 0.25 mg Donepezil HCl (Aricept) 10 mg PO HS [facility] Last Admin: 09/05/17 21:03 Dose: 10 mg Famotidine (Pepcid) 20 mg PO BID [facility] Last Admin: 09/06/17 09:22 Dose: 20 mg Heparin Sodium (Porcine) (Heparin) 5,000 units SC Q12 [facility] Last Admin: 09/06/17 09:22 Dose: 5,000 units Aztreonam 2 gm/ Sodium (Chloride) 100 mls @ 200 mls/hr IVPB Q8H [facility] PRN Reason: Protocol Last Admin: 09/06/17 08:48 Dose: 200 mls/hr Loratadine (Claritin) 10 mg PO HS PRN PRN Reason: Allergy symptoms Last Admin: 09/05/17 21:02 Dose: 10 mg Nicotine (Nicoderm Cq) 1 patch TD DAILY [facility] Last Admin: 09/06/17 09:22 Dose: 1 patch Quetiapine Fumarate (Seroquel) 25 mg PO DAILY [facility] Last Admin: 09/06/17 09:22 Dose: 25 mg Fluticasone/Salmeterol (Advair Diskus 250/50) 1 puff INH RQ12 [facility] Last Admin: 09/06/17 08:21 Dose: 1 puff Triamterene/HCTZ (Dyazide 25 Mg-37.5 Mg) 1 cap PO DAILY [facility] Last Admin: 09/06/17 09:22 Dose: 1 cap - Labs Labs: 09/06/17 07:11 09/06/17 07:11 - Head Exam Head Exam: ATRAUMATIC, NORMOCEPHALIC - Eye Exam Eye Exam: Normal appearance - ENT Exam ENT Exam: Mucous Membranes Moist - Neck Exam Neck Exam: Normal Inspection - Respiratory Exam Respiratory Exam: Decreased Breath Sounds - Cardiovascular Exam Cardiovascular Exam: REGULAR RHYTHM - GI/Abdominal Exam GI & Abdominal Exam: Soft - Extremities Exam Extremities Exam: Normal Inspection - Neurological Exam Neurological Exam: Alert, Oriented x3 Assessment and Plan (1) Lung mass Assessment & Plan: status post lung biopsy awaiting pathology report Seen by oncology For MRI of head and CT of abdomen Status: Acute (2) Pneumonia Assessment & Plan: postobstructive pneumonia Continue IV antibiotics Discontinue Advair Followup chest x-ray patient wants to go home Continue nebulizer treatment Patient advised to quit smoking Status: Acute
--- NOTE | 2017-09-06 14:27 | CP.PCM.PN ---
Subjective - Date & Time of Evaluation Date of Evaluation: 09/06/17 Time of Evaluation: 14:15 - Subjective Subjective: No complaints. Objective - Vital Signs/Intake and Output Vital Signs (last 24 hours): Temp Pulse Resp BP Pulse Ox 98.1 F 96 H 20 120/70 94 L 09/06/17 08:51 09/06/17 12:10 09/06/17 08:51 09/06/17 08:51 09/06/17 08:51 Intake and Output: 09/06/17 09/06/17 06:59 18:59 Intake Total 400 Balance 400 - Medications Medications: Current Medications Acetaminophen (Tylenol 325mg Tab) 650 mg PO Q6 PRN PRN Reason: Fever >100.4 F Albuterol/Ipratropium (Duoneb 3 Mg/0.5 Mg (3 Ml) Ud) 3 ml INH RQ2 PRN PRN Reason: Shortness of Breath Albuterol/Ipratropium (Duoneb 3 Mg/0.5 Mg (3 Ml) Ud) 3 ml INH RQ4 [facility] Last Admin: 09/06/17 11:15 Dose: 3 ml Alprazolam (Xanax) 0.25 mg PO BID PRN PRN Reason: Anxiety Stop: 09/09/17 10:01 Last Admin: 09/05/17 21:02 Dose: 0.25 mg Dexamethasone (Decadron) 4 mg PO BID [facility] Donepezil HCl (Aricept) 10 mg PO HS [facility] Last Admin: 09/05/17 21:03 Dose: 10 mg Famotidine (Pepcid) 20 mg PO BID [facility] Last Admin: 09/06/17 09:22 Dose: 20 mg Heparin Sodium (Porcine) (Heparin) 5,000 units SC Q12 [facility] Last Admin: 09/06/17 09:22 Dose: 5,000 units Aztreonam 2 gm/ Sodium (Chloride) 100 mls @ 200 mls/hr IVPB Q8H [facility] PRN Reason: Protocol Last Admin: 09/06/17 08:48 Dose: 200 mls/hr Loratadine (Claritin) 10 mg PO HS PRN PRN Reason: Allergy symptoms Last Admin: 09/05/17 21:02 Dose: 10 mg Nicotine (Nicoderm Cq) 1 patch TD DAILY [facility] Last Admin: 09/06/17 09:22 Dose: 1 patch Quetiapine Fumarate (Seroquel) 25 mg PO DAILY [facility] Last Admin: 09/06/17 09:22 Dose: 25 mg Triamterene/HCTZ (Dyazide 25 Mg-37.5 Mg) 1 cap PO DAILY [facility] Last Admin: 09/06/17 09:22 Dose: 1 cap - Labs Labs: 09/06/17 07:11 09/06/17 07:11 - Head Exam Head Exam: ATRAUMATIC - Eye Exam Eye Exam: Normal appearance - ENT Exam ENT Exam: Mucous Membranes Dry - Respiratory Exam Respiratory Exam: NORMAL BREATHING PATTERN - Cardiovascular Exam Cardiovascular Exam: +S1, +S2 - GI/Abdominal Exam GI & Abdominal Exam: Normal Bowel Sounds Assessment and Plan (1) Lung mass Assessment & Plan: s/p biopsy; awaiting path results imaging shows 2mm lesion in the brain and liver lesions concerning for metastasis on steroids will discuss with rad onc MRI brain findings neurology eval. Status: Acute (2) Leukocytosis Assessment & Plan: on antibiotics and steroids Status: Acute
[2017-09-06 16:31] VITALS: BP 142/89; PULSE 93; TEMP 98; O2SAT 95
--- NOTE | 2017-09-07 16:38 | CP.PCM.DIS ---
<Jessie Tristan - Last Filed: 09/07/17 16:28> Provider - Provider Date of Admission: 09/01/17 22:26 Attending physician: Juan Carrizales MD Consults: Dr. Bladimir Neely Time Spent in preparation of Discharge (in minutes): 35 Diagnosis - Discharge Diagnosis (1) Abnormal finding on CT scan Status: Acute (2) Abnormal finding on MRI of brain Status: Acute (3) Lung mass Status: Acute (4) Pneumonia Status: Acute Hospital Course - Lab Results Lab Results: Micro Results 09/05/17 10:56 Body Fluid - Bronchial Washing Gram Stain - Final 09/05/17 10:56 Body Fluid - Bronchial Washing Body Fluid Culture - Preliminary Gram Positive Cocci 09/01/17 22:00 Blood Blood Culture - Final NO GROWTH AFTER 5 DAYS 09/01/17 22:00 Blood Gram Stain - Final TEST NOT PERFORMED 09/01/17 21:30 Blood Blood Culture - Final NO GROWTH AFTER 5 DAYS 09/01/17 21:30 Blood Gram Stain - Final TEST NOT PERFORMED 09/05/17 10:57 Other: Please Indicate Mycobacterial Culture - Preliminary 09/02/17 08:30 Sputum Induced Gram Stain - Final 09/02/17 08:30 Sputum Induced Sputum Culture - Final NORMAL ORAL ELVER Most Recent Lab Values WBC 16.4 K/uL (4.8-10.8) H 09/06/17 07:11 RBC 5.52 Mil/uL (4.40-5.90) 09/06/17 07:11 Hgb 15.5 g/dL (12.0-18.0) 09/06/17 07:11 Hct 45.1 % (35.0-51.0) 09/06/17 07:11 MCV 81.7 fL (80.0-94.0) 09/06/17 07:11 MCH 28.1 pg (27.0-31.0) 09/06/17 07:11 MCHC 34.4 g/dL (33.0-37.0) 09/06/17 07:11 RDW 15.8 % (11.5-14.5) H 09/06/17 07:11 Plt Count 259 K/uL (130-400) 09/06/17 07:11 MPV 8.2 fL (7.2-11.7) 09/06/17 07:11 Neut % (Auto) 78.3 % (50.0-75.0) H 09/06/17 07:11 Lymph % (Auto) 14.0 % (20.0-40.0) L 09/06/17 07:11 [place] % (Auto) 7.3 % (0.0-10.0) 09/06/17 07:11 Eos % (Auto) 0.1 % (0.0-4.0) 09/06/17 07:11 Baso % (Auto) 0.3 % (0.0-2.0) 09/06/17 07:11 Neut # (Auto) 12.9 K/uL (1.8-7.0) H 09/06/17 07:11 Lymph # (Auto) 2.3 K/uL (1.0-4.3) 09/06/17 07:11 [place] # (Auto) 1.2 K/uL (0.0-0.8) H 09/06/17 07:11 Eos # (Auto) 0.0 K/uL (0.0-0.7) 09/06/17 07:11 Baso # (Auto) 0.1 K/uL (0.0-0.2) 09/06/17 07:11 Neutrophils % (Manual) 89 % (50-75) H 09/05/17 07:03 Lymphocytes % (Manual) 6 % (20-40) L 09/05/17 07:03 Monocytes % (Manual) 5 % (0-10) 09/05/17 07:03 Platelet Estimate Normal (NORMAL) 09/05/17 07:03 Large Platelets Present 09/04/17 08:50 Anisocytosis (manual) Slight 09/05/17 07:03 Puncture Site Lra 09/01/17 21:20 pCO2 32 mm/Hg (35-45) L 09/01/17 21:20 pO2 90 mm/Hg (80-100) 09/01/17 21:20 HCO3 23.7 mmol/L (21-28) 09/01/17 21:20 ABG pH 7.44 (7.35-7.45) 09/01/17 21:20 ABG Total CO2 22.7 mmol/L (22-28) 09/01/17 21:20 ABG O2 Saturation 98.4 % (95-98) H 09/01/17 21:20 ABG Base Excess -1.5 mmol/L (-2.0-3.0) 09/01/17 21:20 ABG Hemoglobin 15.0 g/dL (11.7-17.4) 09/01/17 21:20 ABG Carboxyhemoglobin 2.3 % (0.5-1.5) H 09/01/17 21:20 POC ABG HHb (Measured) 1.5 % (0.0-5.0) 09/01/17 21:20 ABG Methemoglobin 1.6 % (0.0-3.0) 09/01/17 21:20 Jt Test Yes 09/01/17 21:20 A-a O2 Difference 84.0 mm/Hg 09/01/17 21:20 Respiratory Index 0.9 09/01/17 21:20 Hgb O2 Saturation 94.6 % (95.0-98.0) L 09/01/17 21:20 Vent Mode Bipap 09/01/17 21:20 FiO2 30.0 % 09/01/17 21:20 Inspiratory BiPAP 16 09/01/17 21:20 Expiratory BiPAP 5 09/01/17 21:20 Sodium 142 mmol/L (132-148) 09/06/17 07:11 Potassium 4.4 mmol/L (3.6-5.2) 09/06/17 07:11 Chloride 102 mmol/L (98-107) 09/06/17 07:11 Carbon Dioxide 26 mmol/L (22-30) 09/06/17 07:11 Anion Gap 19 (10-20) 09/06/17 07:11 BUN 23 mg/dL (9-20) H 09/06/17 07:11 Creatinine 1.3 mg/dL (0.8-1.5) 09/06/17 07:11 Est GFR ( Amer) > 60 09/06/17 07:11 Est GFR (Non-Af Amer) 56 09/06/17 07:11 Random Glucose 115 mg/dL (75-110) H 09/06/17 07:11 Lactic Acid 1.3 mmol/L (0.7-2.1) 09/02/17 01:17 Calcium 9.4 mg/dl (8.6-10.4) 09/06/17 07:11 Phosphorus 4.4 mg/dL (2.5-4.5) 09/06/17 07:11 Magnesium 2.4 mg/dL (1.6-2.3) H 09/06/17 07:11 Total Bilirubin 0.7 mg/dL (0.2-1.3) 09/06/17 07:11 AST 186 U/L (17-59) H D 09/06/17 07:11 ALT 240 U/L (21-72) H D 09/06/17 07:11 Alkaline Phosphatase 232 U/L (38-126) H 09/06/17 07:11 Total Creatine Kinase 166 U/L (55-170) 09/02/17 08:52 CK-MB (Mass) 1.58 ng/mL (0.0-3.38) 09/02/17 08:52 Troponin I < 0.0120 ng/mL (0.00-0.120) 09/02/17 08:52 NT-Pro-B Natriuret Pep 34.6 pg/mL (0-900) 09/01/17 21:04 Total Protein 8.4 g/dL (6.3-8.3) H 09/06/17 07:11 Albumin 4.4 g/dL (3.5-5.0) 09/06/17 07:11 Globulin 4.0 gm/dL (2.2-3.9) H 09/06/17 07:11 Albumin/Globulin Ratio 1.1 (1.0-2.1) 09/06/17 07:11 Procalcitonin < 0.05 NG/ML (0.19-0.49) L 09/02/17 01:17 Hepatitis A IgM Ab Negative (NEGATIVE) 09/02/17 08:52 Hep Bs Antigen Negative (NEGATIVE) 09/02/17 08:52 Hep B Core IgM Ab Negative (NEGATIVE) 09/02/17 08:52 Hepatitis C Antibody Negative (NEGATIVE) 09/02/17 08:52 Influenza Typ A,B (EIA) Negative for flu a/b (NEGATIVE) 09/02/17 01:17 Ur L.pneumophila Ag Negative (NEGATIVE) 09/02/17 08:30 Mycoplasma pneumon IgG 4.40 (<=0.90) H 09/02/17 08:52 Mycoplasma pneumon IgM 185 U/mL (<770) 09/02/17 08:52 S.pneumoniae Type 1 IgG 4.0 09/02/17 08:52 S.pneumoniae Type 3 IgG <0.3 09/02/17 08:52 S.pneumoniae Type 4 IgG 0.6 09/02/17 08:52 S.pneumoniae Type 5 IgG 1.9 09/02/17 08:52 S.pneumoniae Type 8 IgG 0.4 09/02/17 08:52 S.pneumoniae Type 9 IgG 0.9 09/02/17 08:52 S.pneumoniae Typ 12 IgG 2.3 09/02/17 08:52 S.pneumoniae Typ 14 IgG 3.4 09/02/17 08:52 S.pneumonia Type 19 IgG 2.1 09/02/17 08:52 S.pneumonia Type 23 IgG <0.3 09/02/17 08:52 S.pneumoniae Typ 26 IgG 0.6 09/02/17 08:52 S.pneumoniae Typ 51 IgG <0.3 09/02/17 08:52 S.pneumoniae Typ 56 IgG 2.2 09/02/17 08:52 S.pneumoniae Typ 68 IgG <0.3 09/02/17 08:52 - Hospital Course Hospital Course: Upon admission: Patient is a 62 year old male with a past medical history of HTN, anxiety, arthritis, and gastritis who presents to the ED complaining of weakness, fatigue , and shortness of breath since August 06. Patient says it has progressively worsened to the point that he could not even clean his apartment today without feeling SOB and fatigued. He notes substernal chest moreno that started today as well which is what prompted him to come to the emergency room. Patient also admits to chills, sweats, dry cough, nausea, and diarrhea since then as well. Patient notes that he has recently changed his diet and lost 25 pounds but thinks his diarrhea is due to increased fiber intake. Patient says he goes apporximately 2-5 times per day, depending on the day. Patinet denies fever, dizziness, palpitations, abdominal pain, constipation, dysuria, lower extremity pain/swelling, rashes, and sick contacts. Hospital course: Patient was admitted for presumed pneumonia. Patient was started on antibiotics/ nebulizer treatments and Dr. Bueno consulted. Upon imaging of the lungs, a small mass was noted on the right side, so Dr. Monroe was consulted for biopsy. However , Dr. Monroe said this mass was not amenable to CT guided biopsy and Dr. Bueno decided to do bronchoscopy for biopsy as well as washings for cytology. Dr. Neely was consulted, and he ordered MRI brain and CT of the chest/abdomen/ pelvis were multiple abnormal lesions were seen in the liver, as well as an abnormal lesion in the frontal lobe of the brain. Mets could not be ruled out so patient was told he would need to follow up as an outpatient with Dr. Bueno and Dr. Neely for biopsy results, as well as neurologist, Dr. Garrison in case antiepilieptics needed to be started. Dr. Garrison also recommended Decadron to avoid brain edema/swelling. Patient was then cleared for discharge by Dr. Hung and consults with the following instructions: Please continue all home medications in addition to the following: Decadron 4 mg by mouth twice daily Avelox 400 mg by mouth daily for 4 more days Please follow up with your primary care provider as well as Dr. Neely and Dr. Garrison in their offices within one week of discharge, to follow up on biopsy results and for coordination of your care. Dr. Neely: [address] [place] [address] Dr. Garrison: [phone] [place] [address], [address]. [place] [address]. Please return to the ER if you experience any new or worsening symptoms. *Please note that this is a summary of events, For more details, please see complete medical record. Discharge Exam - Head Exam Head Exam: ATRAUMATIC - Eye Exam Eye Exam: EOMI, Normal appearance, PERRL - ENT Exam ENT Exam: Mucous Membranes Moist - Respiratory Exam Respiratory Exam: Clear to PA & Lateral, NORMAL BREATHING PATTERN, UNREMARKABLE - Cardiovascular Exam Cardiovascular Exam: RRR, +S1, +S2 - GI/Abdominal Exam GI & Abdominal Exam: Normal Bowel Sounds, Unremarkable - Extremities Exam Extremities exam: normal inspection - Neurological Exam Neurological exam: Alert, Normal Gait, Oriented x3 - Psychiatric Exam Psychiatric exam: Normal Affect, Normal Mood - Skin Skin Exam: Dry, Intact, Normal Color, Warm Discharge Plan - Discharge Medications Prescriptions: Dexamethasone [Decadron] 4 mg PO BID #60 tab Moxifloxacin [Avelox] 400 mg PO DAILY #4 tab - Follow Up Plan Condition: STABLE Disposition: HOME/ ROUTINE Instructions: Moxifloxacin (Systemic), Pneumonia, Adult (DC), Multiple Pulmonary Nodules Additional Instructions: Please continue all home medications in addition to the following: Decadron 4 mg by mouth twice daily Avelox 400 mg by mouth daily for 4 more days Please follow up with your primary care provider as well as Dr. Neely and Dr. Garrison in their offices within one week of discharge, to follow up on biopsy results and for coordination of your care. Dr. Neely: [address] [place] [address] Dr. Garrison: [phone] [place] [address], [address]. [place] [address]. Please return to the ER if you experience any new or worsening symptoms. Referrals: Evin Neely MD [Staff Provider] - Zoila Garrison MD [Staff Provider] - <Anson Hung H - Last Filed: 09/07/17 17:59> Provider - Provider Date of Admission: 09/01/17 22:26 Attending physician: Juan Carrizales MD Hospital Course - Lab Results Lab Results: Micro Results 09/05/17 10:56 Body Fluid - Bronchial Washing Gram Stain - Final 09/05/17 10:56 Body Fluid - Bronchial Washing Body Fluid Culture - Preliminary Gram Positive Cocci 09/01/17 22:00 Blood Blood Culture - Final NO GROWTH AFTER 5 DAYS 09/01/17 22:00 Blood Gram Stain - Final TEST NOT PERFORMED 09/01/17 21:30 Blood Blood Culture - Final NO GROWTH AFTER 5 DAYS 09/01/17 21:30 Blood Gram Stain - Final TEST NOT PERFORMED 09/05/17 10:57 Other: Please Indicate Mycobacterial Culture - Preliminary 09/02/17 08:30 Sputum Induced Gram Stain - Final 09/02/17 08:30 Sputum Induced Sputum Culture - Final NORMAL ORAL ELVER Most Recent Lab Values WBC 16.4 K/uL (4.8-10.8) H 09/06/17 07:11 RBC 5.52 Mil/uL (4.40-5.90) 09/06/17 07:11 Hgb 15.5 g/dL (12.0-18.0) 09/06/17 07:11 Hct 45.1 % (35.0-51.0) 09/06/17 07:11 MCV 81.7 fL (80.0-94.0) 09/06/17 07:11 MCH 28.1 pg (27.0-31.0) 09/06/17 07:11 MCHC 34.4 g/dL (33.0-37.0) 09/06/17 07:11 RDW 15.8 % (11.5-14.5) H 09/06/17 07:11 Plt Count 259 K/uL (130-400) 09/06/17 07:11 MPV 8.2 fL (7.2-11.7) 09/06/17 07:11 Neut % (Auto) 78.3 % (50.0-75.0) H 09/06/17 07:11 Lymph % (Auto) 14.0 % (20.0-40.0) L 09/06/17 07:11 [place] % (Auto) 7.3 % (0.0-10.0) 09/06/17 07:11 Eos % (Auto) 0.1 % (0.0-4.0) 09/06/17 07:11 Baso % (Auto) 0.3 % (0.0-2.0) 09/06/17 07:11 Neut # (Auto) 12.9 K/uL (1.8-7.0) H 09/06/17 07:11 Lymph # (Auto) 2.3 K/uL (1.0-4.3) 09/06/17 07:11 [place] # (Auto) 1.2 K/uL (0.0-0.8) H 09/06/17 07:11 Eos # (Auto) 0.0 K/uL (0.0-0.7) 09/06/17 07:11 Baso # (Auto) 0.1 K/uL (0.0-0.2) 09/06/17 07:11 Neutrophils % (Manual) 89 % (50-75) H 09/05/17 07:03 Lymphocytes % (Manual) 6 % (20-40) L 09/05/17 07:03 Monocytes % (Manual) 5 % (0-10) 05/02/18 07:03 Platelet Estimate Normal (NORMAL) 09/05/17 07:03 Large Platelets Present 09/04/17 08:50 Anisocytosis (manual) Slight 09/05/17 07:03 Puncture Site Lra 09/01/17 21:20 pCO2 32 mm/Hg (35-45) L 09/01/17 21:20 pO2 90 mm/Hg (80-100) 09/01/17 21:20 HCO3 23.7 mmol/L (21-28) 09/01/17 21:20 ABG pH 7.44 (7.35-7.45) 09/01/17 21:20 ABG Total CO2 22.7 mmol/L (22-28) 09/01/17 21:20 ABG O2 Saturation 98.4 % (95-98) H 09/01/17 21:20 ABG Base Excess -1.5 mmol/L (-2.0-3.0) 09/01/17 21:20 ABG Hemoglobin 15.0 g/dL (11.7-17.4) 09/01/17 21:20 ABG Carboxyhemoglobin 2.3 % (0.5-1.5) H 09/01/17 21:20 POC ABG HHb (Measured) 1.5 % (0.0-5.0) 09/01/17 21:20 ABG Methemoglobin 1.6 % (0.0-3.0) 09/01/17 21:20 Jt Test Yes 09/01/17 21:20 A-a O2 Difference 84.0 mm/Hg 09/01/17 21:20 Respiratory Index 0.9 09/01/17 21:20 Hgb O2 Saturation 94.6 % (95.0-98.0) L 09/01/17 21:20 Vent Mode Bipap 09/01/17 21:20 FiO2 30.0 % 09/01/17 21:20 Inspiratory BiPAP 16 09/01/17 21:20 Expiratory BiPAP 5 09/01/17 21:20 Sodium 142 mmol/L (132-148) 09/06/17 07:11 Potassium 4.4 mmol/L (3.6-5.2) 09/06/17 07:11 Chloride 102 mmol/L (98-107) 09/06/17 07:11 Carbon Dioxide 26 mmol/L (22-30) 09/06/17 07:11 Anion Gap 19 (10-20) 09/06/17 07:11 BUN 23 mg/dL (9-20) H 09/06/17 07:11 Creatinine 1.3 mg/dL (0.8-1.5) 09/06/17 07:11 Est GFR ( Amer) > 60 09/06/17 07:11 Est GFR (Non-Af Amer) 56 09/06/17 07:11 Random Glucose 115 mg/dL (75-110) H 09/06/17 07:11 Lactic Acid 1.3 mmol/L (0.7-2.1) 09/02/17 01:17 Calcium 9.4 mg/dl (8.6-10.4) 09/06/17 07:11 Phosphorus 4.4 mg/dL (2.5-4.5) 09/06/17 07:11 Magnesium 2.4 mg/dL (1.6-2.3) H 09/06/17 07:11 Total Bilirubin 0.7 mg/dL (0.2-1.3) 09/06/17 07:11 AST 186 U/L (17-59) H D 09/06/17 07:11 ALT 240 U/L (21-72) H D 09/06/17 07:11 Alkaline Phosphatase 232 U/L (38-126) H 09/06/17 07:11 Total Creatine Kinase 166 U/L (55-170) 09/02/17 08:52 CK-MB (Mass) 1.58 ng/mL (0.0-3.38) 09/02/17 08:52 Troponin I < 0.0120 ng/mL (0.00-0.120) 09/02/17 08:52 NT-Pro-B Natriuret Pep 34.6 pg/mL (0-900) 09/01/17 21:04 Total Protein 8.4 g/dL (6.3-8.3) H 09/06/17 07:11 Albumin 4.4 g/dL (3.5-5.0) 09/06/17 07:11 Globulin 4.0 gm/dL (2.2-3.9) H 09/06/17 07:11 Albumin/Globulin Ratio 1.1 (1.0-2.1) 09/06/17 07:11 Procalcitonin < 0.05 NG/ML (0.19-0.49) L 09/02/17 01:17 Hepatitis A IgM Ab Negative (NEGATIVE) 09/02/17 08:52 Hep Bs Antigen Negative (NEGATIVE) 09/02/17 08:52 Hep B Core IgM Ab Negative (NEGATIVE) 09/02/17 08:52 Hepatitis C Antibody Negative (NEGATIVE) 09/02/17 08:52 Influenza Typ A,B (EIA) Negative for flu a/b (NEGATIVE) 09/02/17 01:17 Ur L.pneumophila Ag Negative (NEGATIVE) 09/02/17 08:30 Mycoplasma pneumon IgG 4.40 (<=0.90) H 09/02/17 08:52 Mycoplasma pneumon IgM 185 U/mL (<770) 09/02/17 08:52 S.pneumoniae Type 1 IgG 4.0 09/02/17 08:52 S.pneumoniae Type 3 IgG <0.3 09/02/17 08:52 S.pneumoniae Type 4 IgG 0.6 09/02/17 08:52 S.pneumoniae Type 5 IgG 1.9 09/02/17 08:52 S.pneumoniae Type 8 IgG 0.4 09/02/17 08:52 S.pneumoniae Type 9 IgG 0.9 09/02/17 08:52 S.pneumoniae Typ 12 IgG 2.3 09/02/17 08:52 S.pneumoniae Typ 14 IgG 3.4 09/02/17 08:52 S.pneumonia Type 19 IgG 2.1 09/02/17 08:52 S.pneumonia Type 23 IgG <0.3 09/02/17 08:52 S.pneumoniae Typ 26 IgG 0.6 09/02/17 08:52 S.pneumoniae Typ 51 IgG <0.3 09/02/17 08:52 S.pneumoniae Typ 56 IgG 2.2 09/02/17 08:52 S.pneumoniae Typ 68 IgG <0.3 09/02/17 08:52 Attending/Attestation - Attestation I have personally seen and examined this patient.: Yes I have fully participated in the care of the patient.: Yes I have reviewed all pertinent clinical information, including history, physical exam and plan: Yes Notes (Text): 09/07/17 17:52 Medical attending: Patient was seen and examined by me. Agree with the above note by the resident The patient did not want to stay further, he was eager to go. He understands and has been told several times he needs to follow up with his Primary physician, pulmonology, and hematology oncology. To be aurora, I am concerned that he is in a state of denial and will not follow up. I called his primary care physician to inform him that he has biopsy results from the bronchoscopy that he needs to follow up on. MRI is concerning for a possible metastatis spread there as well. As mentioned previously the patient is a heavy smoker and intially came for what appeared to be pneumonia - however given his smoking history and the CXRAY findings - we ordered a CT which was then concerning for maligancy. He has several 8mm nodules that will need to have another CT in the future. These 8mm areas were too small to biopsy at this time. I hope he will stop smoking thank you very much Anson Hung
--- NOTE | 2017-09-10 07:46 | CARD ---
APPROVED REPORT EKG Measurement Heart [id number] FL [id number] <Conclusion> Sinus tachycardia Possible Left atrial enlargement Nonspecific ST and T wave abnormality Abnormal ECG
== END 2017-09-06 16:38 | disposition home or self-care (01) | DRG 180 ==
LOC: C.ER 20:40 → C.9E 22:26 → C.6T 23:51
PROVIDERS: ADMIT Internal Medicine; ATTEND Internal Medicine
PROC: 5A09457 Assistance with Respiratory Ventilation, 24-96 Consecutive Hours, Continuous Positive Airway Pressure (ICD-10-PCS; 2017-09-01)
PROC: 0BB58ZX Excision of Right Middle Lobe Bronchus, Via Natural or Artificial Opening Endoscopic, Diagnostic (ICD-10-PCS; 2017-09-05)
PROC: 0BJ08ZZ Inspection of Tracheobronchial Tree, Via Natural or Artificial Opening Endoscopic (ICD-10-PCS; principal; 2017-09-05 10:00)
DX: C34.2 Malignant neoplasm of middle lobe, bronchus or lung (principal); J18.9 Pneumonia, unspecified organism; J98.11 Atelectasis; F17.210 Nicotine dependence, cigarettes, uncomplicated; J84.89 Other specified interstitial pulmonary diseases; Z68.34 Body mass index [BMI] 34.0-34.9, adult; F41.9 Anxiety disorder, unspecified; I11.9 Hypertensive heart disease without heart failure; I51.7 Cardiomegaly; Z96.611 Presence of right artificial shoulder joint

== ENCOUNTER 2017-09-20 10:06 | Inpatient (IN) | payer MEDICARE ==
--- NOTE | 2017-09-20 11:29 | C.PDOC ---
History Of Present Illness 62 y/o male, w/PMhx of cancer of the lungs and kidneys, presents to the ER complaining of vomiting, abdominal pain, and rectal bleeding. 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 Patient reports that he underwent chemotherapy with Dr. Evin Neely over the past 2 days. However, he missed his chemotherapy session today because he was not feeling well. He called Dr. Neely who instructed him to visit the ER. Denies having fever, chills, nausea, dysuria, and hematuria. Time Seen by Provider: 09/20/17 11:03 Chief Complaint (Nursing): Abdominal Pain History Per: Patient History/Exam Limitations: no limitations Onset/Duration Of Symptoms: Days Current Symptoms Are (Timing): Still Present Severity: Moderate Past Medical History Reviewed: Historical Data, Nursing Documentation, Vital Signs Vital Signs: Last Vital Signs Temp 99.7 F H 09/20/17 10:41 Pulse 76 09/20/17 12:27 Resp 22 09/20/17 12:27 BP 142/82 09/20/17 12:27 Pulse Ox 96 09/20/17 12:27 - Medical History PMH: Anxiety, Arthritis, Colonic Polyps, Gastritis, HTN Denies: Depression, Post Traumatic Stress Disorder, Chronic Kidney Disease Surgical History: Back Surgery, Endoscopy - [facility] Procedures ASSISTANCE WITH RESPIRATORY VENTILATION, 24-96 HRS, CPAP (09/01/17) EXCISION OF RIGHT MIDDLE LOBE BRONCHUS, ENDO, DIAGN (09/01/17) INSPECTION OF TRACHEOBRONCHIAL TREE, ENDO (09/01/17) Family History: States: No Known Family Hx - Social History Hx Tobacco Use: Yes Hx Alcohol Use: No Hx Substance Use: No - Immunization History Hx Tetanus Toxoid Vaccination: Yes (3-4 years ago) Hx Influenza Vaccination: Yes (03/2015) Hx Pneumococcal Vaccination: No Review Of Systems Except As Marked, All Systems Reviewed And Found Negative. Constitutional: Negative for: Fever, Chills Gastrointestinal: Positive for: Vomiting, Abdominal Pain, Other (rectal bleeding ). Negative for: Nausea Physical Exam - Physical Exam Appears: No Acute Distress, Chronically Ill, Other (obese) Skin: Normal Color, Warm, Dry Head: Atraumatic, Normacephalic Eye(s): bilateral: Conjunctiva Pale Nose: Normal Oral Mucosa: Moist Neck: Supple Chest: Symmetrical Cardiovascular: Rhythm Regular Respiratory: No Rales, No Rhonchi, No Wheezing (wheezing bilaterally) Gastrointestinal/Abdominal: Soft, Tenderness (tenderness to left side of abdomen ), Distention Neurological/Psych: Oriented x3, Normal Speech ED Course And Treatment - Laboratory Results Result Diagrams: 09/20/17 11:24 09/20/17 11:24 O2 Sat by Pulse Oximetry: 99 (RA) Pulse Ox Interpretation: Normal Medical Decision Making Medical Decision Making: Plan: --Labs Disposition Discussed With DrJohn: nAson Hung Counseled Patient/Family Regarding: Studies Performed, Diagnosis - Disposition Disposition: HOME/ ROUTINE Disposition Time: 13:27 Condition: GUARDED Forms: [facility] (Stateless) - POA Present On Arrival: None - Clinical Impression Clinical Impression: Abdominal pain, Pancreatitis, Metastatic cancer - Scribe Statement The provider has reviewed the documentation as recorded by the Darianibe Kam Ambriz Provider Attestation: All medical record entries made by the Scribe were at my direction and personally dictated by me. I have reviewed the chart and agree that the record accurately reflects my personal performance of the history, physical exam, medical decision making, and the department course for this patient. I have also personally directed, reviewed, and agree with the discharge instructions and disposition. Decision To Admit - Pt Status Changed To: Hospital Disposition Of: Inpatient - Admit Certification Admit to Inpatient:: After my assessment, the patient will require hospitalization for at least two midnights. This is because of the severity of symptoms shown, intensity of services needed, and/or the medical risk in this patient being treated as an outpatient. - InPatient: Physician Admission Certification:: patient with metastatic ca, pancreatitis - . Bed Request Type: Regular Patient Diagnosis: Abdominal pain, Pancreatitis, Metastatic cancer
[2017-09-20 11:43] LABS: BASO # 0.1 K/uL (0.0-0.2); BASO % 0.4 % (0.0-2.0); EOS % 0.1 % (0.0-4.0); HEMOGLOBIN 14.7 g/dL (12.0-18.0); LYMPH # 0.7 K/uL (1.0-4.3); LYMPH % 3.7 % (20.0-40.0); MEAN CELL VOLUME 80.8 fL (80.0-94.0); MEAN CORPUSCULAR HEMOGLOBIN 27.8 pg (27.0-31.0); MEAN CORPUSCULAR HGB CONC 34.4 g/dL (33.0-37.0); MEAN PLATELET VOLUME 9.1 fL (7.2-11.7); MONO # 0.3 K/uL (0.0-0.8); MONO % 1.8 % (0.0-10.0); NEUT # 17.1 K/uL (1.8-7.0); NRBC % 0.1 % (0.0-2.0); RBC 5.28 Mil/uL (4.40-5.90); RED CELL DISTRIBUTION WIDTH 17.1 % (11.5-14.5); WHITE BLOOD COUNT 18.2 K/uL (4.8-10.8)
[2017-09-20 11:45] LABS: PLATELET COUNT 115 K/uL (130-400)
[2017-09-20 11:54] LABS: ALB/GLOB RATIO 0.9 (1.0-2.1); ALBUMIN 3.5 g/dL (3.5-5.0); ALT/SGPT 340 U/L (21-72); AST/SGOT 221 U/L (17-59); BLOOD UREA NITROGEN 31 mg/dL (9-20); CALCIUM 9.7 mg/dl (8.6-10.4); GFR AFRICAN-AMERICAN > 60; GFR NON-AFRICAN AMERICAN > 60
[2017-09-20 12:11] LABS: BANDS 1 % (0-2); TOTAL CELLS COUNTED 100
[2017-09-20 12:12] LABS: ANISOCYTOSIS SLIGHT; LYMPHOCYTE 5 % (20-40); MONOCYTE 2 % (0-10); NEUTROPHIL 92 % (50-75); PLATELET ESTIMATE SLIGHTLY DECREASED (NORMAL)
[2017-09-20] MEDS ORDERED: Morphine 4 MG/ML VIAL ONE (12:53)
--- NOTE | 2017-09-20 13:11 | CT ---
PROCEDURE: CT Abdomen and Pelvis without intravenous contrast HISTORY: abdominal pain COMPARISON: Chest, abdomen and pelvis CT with contrast 09/06/2017. TECHNIQUE: Helical CT of the abdomen and pelvis was performed without oral or intravenous contrast as per referring physician request. Contrast dose: None Radiation dose: Total exam DLP = 1117.43 mGy-cm. This CT exam was performed using one or more of the following dose reduction techniques: Automated exposure control, adjustment of the mA and/or kV according to patient size, and/or use of iterative reconstruction technique. FINDINGS: LOWER THORAX: Dense infiltrate or atelectasis is again seen but now worsened at the right middle lobe with extensive chronic interstitial pulmonary disease at the bilateral lower lobes and lingula. No pleural or pericardial effusion. Underlying lesion right middle lobe not excluded once again. LIVER: Widespread hepatic metastases are reiterated though somewhat less well defined due to lack of intravenous contrast in the in the interval. GALLBLADDER AND BILE DUCTS: Gallbladder is completely contracted. No radiodense cholelithiasis. PANCREAS: The tail the pancreas is enlarged with the distal body borderline enlarged. Local peripancreatic reactive changes are prominent in the same distribution surrounding the pancreas with trace left para renal fluid in a pattern suspicious for pancreatitis. Left head through midbody segments of the pancreas appear unremarkable and stable in appearance SPLEEN: Unremarkable. ADRENALS: Unremarkable. No mass. KIDNEYS AND URETERS: Extensive left renal cystic changes are reiterated with the right kidney remarkable for a small exophytic cyst off the lower pole once again. No obstructive uropathy bilaterally. VASCULATURE: Unremarkable. No aortic aneurysm. BOWEL: Unremarkable. No obstruction. No gross mural thickening. APPENDIX: Appendix remains nonvisualized. No suspicious CT pattern suggest appendicitis at this time. PERITONEUM: Unremarkable. No free fluid. No free air. LYMPH NODES: Unremarkable. No enlarged lymph nodes. BLADDER: Unremarkable. REPRODUCTIVE: Unremarkable. BONES: No acute fracture. OTHER FINDINGS: None. IMPRESSION: 1. Findings suggestive of pancreatitis concentrated at the distal body through tail. No definite pseudocyst formation however lack venous contrast limits interpretation. 2. Contracted gallbladder. No radiodense cholelithiasis demonstrated. 3. Widespread hepatic metastasis again appreciated though less well defined due lack images contrast as compared to prior CT 09/06/2017. 4. Extensive left renal cysts again evident. 5. Incidental note made of worsened atelectasis or infiltrate right middle lobe.
[2017-09-20] MEDS ORDERED: Albuterol-Ipratrop 3 mg / 0.5 (3 ml) UD INH PRN (14:52)
[2017-09-20] MEDS ORDERED: Sodium Chloride 0.45% 1,000 ML IV SCH (15:00)
--- NOTE | 2017-09-20 15:29 | CP.PCM.HP ---
<Brisa Sen - Last Filed: 09/20/17 18:05> History of Present Illness - History of Present Illness History of Present Illness: CC: Abdominal Pain, Vomiting, Blood in Stool Pt is a 62 M with PMHX of HTN, Lung CA, Kidney CA, and anxiety presents c/o subjective abdominal pain, nausea, hematochezia x2, vomiting x2 this morning. The pt reported the symptoms started around 3 AM. Pt reported that he felt feverish, chills, and sweats. He had 2 episodes of vomiting that were bilious and non-bloody. The pt had one episode of hematochezia in the morning and an episode hematochezia in the ED around 1PM, which was his last bowel movement. Pt stated that the bowel movement was soft and brown. When he wiped he saw blood on the tissue paper and a few drops in the bowl. Pt reports episodes of hemoptysis. Pt states that the abdominal pain is localized to the RUQ and it radiates to the left upper and lower quadrant. Pt states that he associated bloating and nausea with the pain symptoms. Pt stated that he took his prescribed medications, 4 mg Dexamethasone and 10 mg Prochlorperazine today. Pt states that his last colonoscopy was 9 months ago and benign polyps were removed. An endoscopy was done at the same day, and nothing abnormal was found. Pt admits to intentional 32lbs lost. In the ED he admits to little chest pain, palpitations, SOB, cough, hemoptysis, nausea, hematochezia. Pt denies diarrhea, dysuria, and dyschezia. PMHX: HTN, Small Cell Carcinoma of Lung, Kidney CA FAMILY HX: Mother (Alive)- Alzheimer's Disease, DM, GERD; Father() Lung Fibroids, at 90; Daughter: Breast CA PSH: Shoulder Surgery Surgery ALLERGIES: PCN MEDICATIONS:Dexamthasone 4 mg PO BID, Prochlorperazine 10 mg Q6H SOCIAL: Pt denies current ETOH use and illicit drug use. Pt states that he smokes 1 pack of cigarettes a day for 35 years. Oncologist: Dr. Neely GI: Dr. Cortés Present on Admission - Present on Admission Any Indicators Present on Admission: No History of DVT/PE: No History of Uncontrolled Diabetes: No Urinary Catheter: No Decubitus Ulcer Present: No Past Patient History - Infectious Disease Hx of Infectious Diseases: None - Past Medical History & Family History Past Medical History?: Yes - Past Social History Smoking Status: Current Some Days Smoker - CARDIAC Hx Hypertension: Yes - PULMONARY Hx Respiratory Disorders: No - NEUROLOGICAL Hx Neurological Disorder: No - HEENT Hx HEENT Problems: No - RENAL Hx Chronic Kidney Disease: No - ENDOCRINE/METABOLIC Hx Endocrine Disorders: No - HEMATOLOGICAL/ONCOLOGICAL Hx Blood Disorders: No Other/Comment: CA to Right kidney stage 4. 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 - INTEGUMENTARY Hx Dermatological Problems: No - MUSCULOSKELETAL/RHEUMATOLOGICAL Hx Arthritis: Yes - GASTROINTESTINAL Hx Gastritis: Yes - GENITOURINARY/GYNECOLOGICAL Hx Genitourinary Disorders: No - PSYCHIATRIC Hx Anxiety: Yes Hx Depression: No Hx Post Traumatic Stress Disorder: No Hx Substance Use: No - SURGICAL HISTORY Hx Surgeries: Yes Hx Arthroscopy: No Hx Open Reduction Internal Fixation: No Hx Orthopedic Surgery: Yes (RIGHT SHOULDER ROTO CUFF) Other/Comment: Back surgery 2016 - ANESTHESIA Hx Anesthesia: Yes Hx Anesthesia Reactions: No Hx Malignant Hyperthermia: No Meds Allergies/Adverse Reactions: Allergies Allergy/AdvReac Type Severity Reaction Status Date / Time Penicillins Allergy Intermediate DIZZINESS Verified 09/07/16 07:39 Physical Exam - Head Exam Head Exam: ATRAUMATIC, NORMAL INSPECTION, NORMOCEPHALIC - Eye Exam Eye Exam: EOMI, Normal appearance, PERRL - Respiratory Exam Respiratory Exam: Wheezes - Cardiovascular Exam Cardiovascular Exam: REGULAR RHYTHM, +S1, +S2 - GI/Abdominal Exam GI & Abdominal Exam: Distended, Hypoactive Bowel Sounds, Tenderness (ruq, luq). absent: Rebound, Rigid - Extremities Exam Extremities exam: Positive for: full ROM, normal inspection. Negative for: pedal edema - Back Exam Back exam: FULL ROM, NORMAL INSPECTION - Neurological Exam Neurological exam: CN II-XII Intact, Normal Gait, Oriented x3 - Psychiatric Exam Psychiatric exam: Flat Affect, Normal Affect, Normal Mood - Skin Skin Exam: Dry, Intact, Normal Color, Warm Results - Vital Signs Recent Vital Signs: Last Vital Signs Temp 97.4 F L 09/20/17 14:24 Pulse 86 09/20/17 15:00 Resp 22 09/20/17 15:00 BP 133/80 09/20/17 15:00 Pulse Ox 94 L 09/20/17 15:00 - Labs Result Diagrams: 09/20/17 11:24 09/20/17 11:24 Labs: Laboratory Results - last 24 hr 09/20/17 09/20/17 09/20/17 11:24 11:24 11:24 WBC 18.2 H RBC 5.28 Hgb 14.7 Hct 42.7 MCV 80.8 MCH 27.8 MCHC 34.4 RDW 17.1 H Plt Count 115 L D MPV 9.1 Neut % (Auto) 94.0 H Lymph % (Auto) 3.7 L Ballard % (Auto) 1.8 Eos % (Auto) 0.1 Baso % (Auto) 0.4 Neut # (Auto) 17.1 H Lymph # (Auto) 0.7 L Ballard # (Auto) 0.3 Eos # (Auto) 0.0 Baso # (Auto) 0.1 Neutrophils % (Manual) 92 H Band Neutrophils % 1 Lymphocytes % (Manual) 5 L Monocytes % (Manual) 2 Platelet Estimate Slightly decreased L Anisocytosis (manual) Slight Sodium 134 Potassium 4.4 Chloride 98 Carbon Dioxide 24 Anion Gap 16 BUN 31 H Creatinine 1.2 Est GFR ( Amer) > 60 Est GFR (Non-Af Amer) > 60 Random Glucose 117 H Calcium 9.7 Total Bilirubin 1.3 AST 221 H ALT 340 H D Alkaline Phosphatase 490 H D Total Protein 7.4 Albumin 3.5 D Globulin 3.9 Albumin/Globulin Ratio 0.9 L Lipase Blood Type O NEGATIVE Antibody Screen Negative 09/20/17 15:07 WBC RBC Hgb Hct MCV MCH MCHC RDW Plt Count MPV Neut % (Auto) Lymph % (Auto) Ballard % (Auto) Eos % (Auto) Baso % (Auto) Neut # (Auto) Lymph # (Auto) Ballard # (Auto) Eos # (Auto) Baso # (Auto) Neutrophils % (Manual) Band Neutrophils % Lymphocytes % (Manual) Monocytes % (Manual) Platelet Estimate Anisocytosis (manual) Sodium Potassium Chloride Carbon Dioxide Anion Gap BUN Creatinine Est GFR ( Amer) Est GFR (Non-Af Amer) Random Glucose Calcium Total Bilirubin AST ALT Alkaline Phosphatase Total Protein Albumin Globulin Albumin/Globulin Ratio Lipase 1108 H Blood Type Antibody Screen Assessment & Plan - Assessment and Plan (Free Text) Assessment: 62M with nausea, vomiting x2 episodes, abdominal pain was found to have pancreatitis and distended stomach on CT abdomen. GI Dr. Cortés Heme/onc Dr. Neely Acute Pancreatitis ? secondary to distended stomach ? secondary to chemo x 2 doses Lipase 1108 1/2NS @ 200cc/hr f/u AM CXR f/u AM lipase Dexamthasone 4 mg PO BID Zofran 4mg IVP Q4H N/V Prochlorperazine 10 mg Q6H Lung CA, small cell carcinoma on Pathology from FNA, wheezing and coughing Duoneb 3ml INH RQ4 PRN Piperacillin/Tazobactam 3.375 gm Q6H Vancomycin 1 gm Q24 Renal Cancer Liver Masses on CT abdomen/pelvis likely metastasis leukocytosis, afebrile wbc 18.2 Anxiety history ambien seroquel smoking history last cigarette was 09/17 Nicotine TD Patch Prophylaxis SCD ranitidine Dr. Anabell Sen DO PGY1 - Date & Time Date: 09/20/17 Time: 18:02 <Anson Hung - Last Filed: 09/20/17 18:51> Results - Vital Signs Recent Vital Signs: Last Vital Signs Temp 98 F 09/20/17 17:30 Pulse 91 H 09/20/17 17:30 Resp 20 09/20/17 17:30 BP 144/89 09/20/17 17:30 Pulse Ox 95 09/20/17 17:30 - Labs Result Diagrams: 09/20/17 11:24 09/20/17 11:24 Labs: Laboratory Results - last 24 hr 09/20/17 09/20/17 09/20/17 11:24 11:24 11:24 WBC 18.2 H RBC 5.28 Hgb 14.7 Hct 42.7 MCV 80.8 MCH 27.8 MCHC 34.4 RDW 17.1 H Plt Count 115 L D MPV 9.1 Neut % (Auto) 94.0 H Lymph % (Auto) 3.7 L Ballard % (Auto) 1.8 Eos % (Auto) 0.1 Baso % (Auto) 0.4 Neut # (Auto) 17.1 H Lymph # (Auto) 0.7 L Ballard # (Auto) 0.3 Eos # (Auto) 0.0 Baso # (Auto) 0.1 Neutrophils % (Manual) 92 H Band Neutrophils % 1 Lymphocytes % (Manual) 5 L Monocytes % (Manual) 2 Platelet Estimate Slightly decreased L Anisocytosis (manual) Slight Sodium 134 Potassium 4.4 Chloride 98 Carbon Dioxide 24 Anion Gap 16 BUN 31 H Creatinine 1.2 Est GFR ( Amer) > 60 Est GFR (Non-Af Amer) > 60 Random Glucose 117 H Calcium 9.7 Total Bilirubin 1.3 AST 221 H ALT 340 H D Alkaline Phosphatase 490 H D Total Protein 7.4 Albumin 3.5 D Globulin 3.9 Albumin/Globulin Ratio 0.9 L Lipase Blood Type O NEGATIVE Antibody Screen Negative 09/20/17 15:07 WBC RBC Hgb Hct MCV MCH MCHC RDW Plt Count MPV Neut % (Auto) Lymph % (Auto) Ballard % (Auto) Eos % (Auto) Baso % (Auto) Neut # (Auto) Lymph # (Auto) Ballard # (Auto) Eos # (Auto) Baso # (Auto) Neutrophils % (Manual) Band Neutrophils % Lymphocytes % (Manual) Monocytes % (Manual) Platelet Estimate Anisocytosis (manual) Sodium Potassium Chloride Carbon Dioxide Anion Gap BUN Creatinine Est GFR ( Amer) Est GFR (Non-Af Amer) Random Glucose Calcium Total Bilirubin AST ALT Alkaline Phosphatase Total Protein Albumin Globulin Albumin/Globulin Ratio Lipase 1108 H Blood Type Antibody Screen Attending/Attestation - Attestation I have personally seen and examined this patient.: Yes I have fully participated in the care of the patient.: Yes I have reviewed all pertinent clinical information: Yes Notes (Text): 09/20/17 18:51 Medical attending: Patient was seen and examined by me. Agree with the above note by the claim review medical director. This is a patient who is known to me from the previous recent admission. At that time he came to the hospital with the chief complaint of coughing and what appeared to be a COPD exacerbation due to history of smoking. Review of the chest x-rays at that time were concerning and so I ordered a CAT scan and to make a long story short we became very concerned for potential malignancy. He underwent a bronchoscopy during that admission and we were trying to do a lung biopsy however the nodules on the lungs were too small. Nevertheless the bronchoscopy had biopsy samples and it shows that he does have a malignancy. CT imaging showing that he has a lot of tumor burden in both the lung and also the liver. He's had chemotherapy twice now and was supposed to go to chemotherapy again for the third time however he explained that he was too weak, tired, and reported abdominal pain. He spoke with his wireless sales associate oncologist and was told to come to the hospital Here the patient had a CAT scan without contrast which is suggestive of probably pancreatitis to check a lipase level. This study also showed that he has a very dilated stomach as well. He reports that he is having bowel movements this morning and that he is able to drink water by mouth. But he has no appetite and does not want to eat any solid foods. The patient's will be nothing by mouth except for ice chips and water sips. Also start intravenous fluids as well. We may have to repeat a CAT scan with by mouth and IV contrast. Explained to the patient that he may or may not need an NGT He does have elevated white blood cell count, with a left shift. We'll get blood cultures and start vancomycin and Zosyn for the time being thank you Anson Hung 09/20/17 18:51
[2017-09-20] MEDS ORDERED: Iohexol 240 (50 ml) PO ONE (15:46)
[2017-09-20] MEDS ORDERED: Iohexol 240 (50 ml) ONE (16:04)
[2017-09-20] MEDS: Vancomycin 1 gm/NS 200 ml 1 GM/200 ML BAG IVPB SCH (16:19)
[2017-09-20] MEDS ORDERED: Iodixanol 320 MG/ML 100 ML BOTTLE IV ONE (17:34)
--- NOTE | 2017-09-20 18:11 | CT ---
PROCEDURE: CT Abdomen and Pelvis with contrast HISTORY: Pancreatitis, elevated LFTs. Abdominal distension. Relevant medical history: History of lung CA and kidney CA. COMPARISON: September 20, 2017. Time of the most recent examination: 12:42 09/06/2017. CT thorax abdomen pelvis. TECHNIQUE: Contrast dose: 100 cc Visipaque 320. Radiation dose: Total exam DLP = 36527.23 mGy-cm. This CT exam was performed using one or more of the following dose reduction techniques: Automated exposure control, adjustment of the mA and/or kV according to patient size, and/or use of iterative reconstruction technique. FINDINGS: LOWER THORAX: Incompletely visualize consolidative changes primarily affecting right middle lobe and right lower lobe. Nonspecific multifocal airspace disease also identified. These are stable findings. LIVER: Stable hepatic metastatic disease. GALLBLADDER AND BILE DUCTS: Unremarkable. PANCREAS: Unremarkable.Evidence of pancreatitis primarily affecting the distal body and tail of the pancreas. No evidence of necrotizing pancreatitis. There is an inflammatory component is surrounding the splenic vein without evidence of splenic vein thrombosis. This appears be more of a phlegmonous process then discrete pseudocyst. Inflammatory changes extend to the perinephric space, left adrenal gland and pericolic gutter. SPLEEN: Unremarkable. ADRENALS: Unremarkable. No mass. KIDNEYS AND URETERS: No significant interval change compared to the prior examination(s). This includes bilateral renal cysts larger and more numerous in the left kidney compared to the right. VASCULATURE: Unremarkable. No aortic aneurysm. BOWEL: Unremarkable. No obstruction. No gross mural thickening. APPENDIX: Normal appendix. PERITONEUM: Unremarkable. No free fluid. No free air. LYMPH NODES: Unremarkable. No enlarged lymph nodes. BLADDER: Unremarkable. REPRODUCTIVE: Unremarkable. BONES: No acute fracture. OTHER FINDINGS: None. IMPRESSION: Acute pancreatitis confined to the distal body and tail of the pancreas. Peripancreatic inflammatory changes/phlegmon. No CT evidence of necrotizing pancreatitis. Stable findings in the thorax, abdomen, retroperitoneum and pelvis otherwise noted.
[2017-09-20] MEDS: Sodium Chloride 0.45% 1,000 ML IV SCH ×2 (18:22→22:03)
--- NOTE | 2017-09-20 19:31 | CP.PCM.CON ---
History of Present Illness - History of Present Illness History of Present Illness: 62 yo male h/o small cell lung CA mets to kidney and liver. Asked to see pt for abdom pain- today- epig, severe. +N/Vomiting. + BMs.. Small amount BRBPR. EGD and colonsocopy done 1 yr ago- gastritis, c polyps, in t hem.. Had recent CHEMO. Denies GB dis, alcohol. Review of Systems - Constitutional Constitutional: Weight Loss - EENT Eyes: absent: Photophobia - Cardiovascular Cardiovascular: Chest Pain, Dyspnea - Respiratory Respiratory: Dyspnea. absent: Hemoptysis - Gastrointestinal Gastrointestinal: Abdominal Pain, Belching, Hematochezia, Nausea, Vomiting. absent: Constipation, Diarrhea, Dysphagia, Hematemesis, Melena - Genitourinary Genitourinary: absent: Hematuria - Musculoskeletal Musculoskeletal: absent: Muscle Cramps - Integumentary Integumentary: absent: Change in Hair - Neurological Neurological: absent: Convulsions Past Patient History - Infectious Disease Hx of Infectious Diseases: None - Past Medical History & Family History Past Medical History?: Yes - Past Social History Smoking Status: Current Some Days Smoker - CARDIAC Hx Hypertension: Yes - PULMONARY Hx Respiratory Disorders: No - NEUROLOGICAL Hx Neurological Disorder: No - HEENT Hx HEENT Problems: No - RENAL Hx Chronic Kidney Disease: No - ENDOCRINE/METABOLIC Hx Endocrine Disorders: No - HEMATOLOGICAL/ONCOLOGICAL Hx Blood Disorders: No Other/Comment: CA to Right kidney stage 4. 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 Had his last chemo yesterday 09/19/17 - INTEGUMENTARY Hx Dermatological Problems: No - MUSCULOSKELETAL/RHEUMATOLOGICAL Hx Arthritis: Yes Hx Falls: No - GASTROINTESTINAL Hx Gastritis: Yes - GENITOURINARY/GYNECOLOGICAL Hx Genitourinary Disorders: No - PSYCHIATRIC Hx Anxiety: Yes Hx Depression: No Hx Post Traumatic Stress Disorder: No Hx Substance Use: No - SURGICAL HISTORY Hx Surgeries: Yes Hx Arthroscopy: No Hx Open Reduction Internal Fixation: No Hx Orthopedic Surgery: Yes (RIGHT SHOULDER ROTO CUFF) Other/Comment: Back surgery 2016 - ANESTHESIA Hx Anesthesia: Yes Hx Anesthesia Reactions: No Hx Malignant Hyperthermia: No Meds Allergies/Adverse Reactions: Allergies Allergy/AdvReac Type Severity Reaction Status Date / Time Penicillins Allergy Intermediate DIZZINESS Verified 09/07/16 07:39 - Medications Medications: Current Medications Albuterol/Ipratropium (Duoneb 3 Mg/0.5 Mg (3 Ml) Ud) 3 ml INH RQ4 PRN PRN Reason: Shortness of Breath Aspirin (Ecotrin) 81 mg PO DAILY [facility] Dexamethasone (Decadron) 4 mg PO BID [facility] Ergocalciferol (Drisdol 50,000 Intl Units Cap) 1 cap PO QWK LISA Famotidine (Pepcid) 20 mg PO BID [facility] Piperacillin Sod/Tazobactam (Sod 3.375 gm/ Sodium Chloride) 100 mls @ 200 mls/ hr IVPB Q6H LISA PRN Reason: Protocol Vancomycin/Sodium Chloride (Vancomycin 1 Gm/Ns 200 Ml) 1 gm in 200 mls @ 133.333 mls/hr IVPB Q24H LISA PRN Reason: Protocol Stop: 09/25/17 15:01 Last Admin: 09/20/17 16:19 Dose: 133.333 mls/hr Sodium Chloride (Sodium Chloride 0.45%) 1,000 mls @ 200 mls/hr IV .Q5H [facility] Last Admin: 09/20/17 18:22 Dose: 200 mls/hr Ketorolac Tromethamine (Toradol) 30 mg IVP Q6 PRN PRN Reason: Pain, severe (8-10) Last Admin: 09/20/17 18:22 Dose: 30 mg Nicotine (Nicoderm Cq) 1 patch TD DAILY [facility] Ondansetron HCl (Zofran Inj) 4 mg IVP Q4H PRN PRN Reason: Nausea/Vomiting Pantoprazole Sodium (Protonix Ec Tab) 40 mg PO DAILY [facility] Quetiapine Fumarate (Seroquel) 25 mg PO HS [facility] Zolpidem Tartrate (Ambien) 5 mg PO HS PRN PRN Reason: Insomnia Physical Exam - Constitutional Appears: Agitated - Respiratory Exam Respiratory Exam: Rhonchi - Cardiovascular Exam Cardiovascular Exam: Tachycardia - GI/Abdominal Exam GI & Abdominal Exam: Distended, Normal Bowel Sounds, Tenderness. absent: Firm, Guarding, Mass, Rebound - Extremities Exam Extremities exam: Negative for: calf tenderness - Neurological Exam Neurological exam: Alert, Oriented x3 Results - Vital Signs Recent Vital Signs: Last Vital Signs Temp 98 F 09/20/17 17:30 Pulse 91 H 09/20/17 17:30 Resp 20 09/20/17 17:30 BP 144/89 09/20/17 17:30 Pulse Ox 95 09/20/17 17:30 - Labs Result Diagrams: 09/20/17 11:24 09/20/17 11:24 Labs: Laboratory Results - last 24 hr 09/20/17 09/20/17 09/20/17 11:24 11:24 11:24 WBC 18.2 H RBC 5.28 Hgb 14.7 Hct 42.7 MCV 80.8 MCH 27.8 MCHC 34.4 RDW 17.1 H Plt Count 115 L D MPV 9.1 Neut % (Auto) 94.0 H Lymph % (Auto) 3.7 L Hind[place] % (Auto) 1.8 Eos % (Auto) 0.1 Baso % (Auto) 0.4 Neut # (Auto) 17.1 H Lymph # (Auto) 0.7 L [place] # (Auto) 0.3 Eos # (Auto) 0.0 Baso # (Auto) 0.1 Neutrophils % (Manual) 92 H Band Neutrophils % 1 Lymphocytes % (Manual) 5 L Monocytes % (Manual) 2 Platelet Estimate Slightly decreased L Anisocytosis (manual) Slight Sodium 134 Potassium 4.4 Chloride 98 Carbon Dioxide 24 Anion Gap 16 BUN 31 H Creatinine 1.2 Est GFR ( Amer) > 60 Est GFR (Non-Af Amer) > 60 Random Glucose 117 H Calcium 9.7 Total Bilirubin 1.3 AST 221 H ALT 340 H D Alkaline Phosphatase 490 H D Total Protein 7.4 Albumin 3.5 D Globulin 3.9 Albumin/Globulin Ratio 0.9 L Lipase Blood Type O NEGATIVE Antibody Screen Negative 09/20/17 15:07 WBC RBC Hgb Hct MCV MCH MCHC RDW Plt Count MPV Neut % (Auto) Lymph % (Auto) [place] % (Auto) Eos % (Auto) Baso % (Auto) Neut # (Auto) Lymph # (Auto) [place]s # (Auto) Eos # (Auto) Baso # (Auto) Neutrophils % (Manual) Band Neutrophils % Lymphocytes % (Manual) Monocytes % (Manual) Platelet Estimate Anisocytosis (manual) Sodium Potassium Chloride Carbon Dioxide Anion Gap BUN Creatinine Est GFR ( Amer) Est GFR (Non-Af Amer) Random Glucose Calcium Total Bilirubin AST ALT Alkaline Phosphatase Total Protein Albumin Globulin Albumin/Globulin Ratio Lipase 1108 H Blood Type Antibody Screen Assessment & Plan (1) HTN (hypertension) Status: Acute (2) Renal metastasis Status: Acute (3) Liver metastases Assessment and Plan: advanced Status: Acute (4) Abnormal LFTs Assessment and Plan: consider due to extensive liver mets or pancreatitis.,. No GB stone dis Status: Acute (5) Abdominal pain Assessment and Plan: pancreatitis. Likely metastatic abdom disease.. Distended stomach on CT. Consdier NG tube Status: Acute (6) Metastatic cancer Status: Acute (7) Pancreatitis Assessment and Plan: Consider due to chemo. Doubt GB disease. Consider metastatic diease. Rec: NPO, IV fluids as can tolerate. Status: Acute (8) Leukocytosis Status: Acute (9) Lung mass Status: Acute
--- NOTE | 2017-09-20 20:32 | CP.PCM.CON ---
History of Present Illness - History of Present Illness History of Present Illness: 62 year old male with a history of tobacco abuse, anxiety, HTN, stage IV small cell lung cancer with liver and possible brain metastasis, diagnosed in 09/2017, admitted with abdominal pain, N/V, hematochezia. The patient started chemotherapy Sunday with carboplatin and etoposide. He tolerated 2 days of chemotherapy well and was scheduled for treatment today. He notes to worsening abdominal pain overnight with N/V. He notes to blood streaked stools. Due to increasing pain and fatigue he came to the ER and was found to have elevated LFTs and lipase. Past medical history: tobacco abuse, HTN, anxiety Past surgical history: Shoulder surgery Family history: Daughter has breast cancer Social history: Smokes 1/2pp x 45 years, denies alcohol and illicit drug use. Allergies: Penicillins Review of systems: All remaining review of systems including HEENT, cardiovascular, respiratory, gastrointestinal, genitourinary, musculoskeletal, dermatologic, neurologic, and psychiatric are negative unless mentioned in the HPI. Past Patient History - Infectious Disease Hx of Infectious Diseases: None - Past Medical History & Family History Past Medical History?: Yes - Past Social History Smoking Status: Current Some Days Smoker - CARDIAC Hx Hypertension: Yes - PULMONARY Hx Respiratory Disorders: No - NEUROLOGICAL Hx Neurological Disorder: No - HEENT Hx HEENT Problems: No - RENAL Hx Chronic Kidney Disease: No - ENDOCRINE/METABOLIC Hx Endocrine Disorders: No - HEMATOLOGICAL/ONCOLOGICAL Hx Blood Disorders: No Other/Comment: CA to Right kidney stage 4. 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 Had his last chemo yesterday 09/19/17 - INTEGUMENTARY Hx Dermatological Problems: No - MUSCULOSKELETAL/RHEUMATOLOGICAL Hx Arthritis: Yes Hx Falls: No - GASTROINTESTINAL Hx Gastritis: Yes - GENITOURINARY/GYNECOLOGICAL Hx Genitourinary Disorders: No - PSYCHIATRIC Hx Anxiety: Yes Hx Depression: No Hx Post Traumatic Stress Disorder: No Hx Substance Use: No - SURGICAL HISTORY Hx Surgeries: Yes Hx Arthroscopy: No Hx Open Reduction Internal Fixation: No Hx Orthopedic Surgery: Yes (RIGHT SHOULDER ROTO CUFF) Other/Comment: Back surgery 2016 - ANESTHESIA Hx Anesthesia: Yes Hx Anesthesia Reactions: No Hx Malignant Hyperthermia: No Meds Allergies/Adverse Reactions: Allergies Allergy/AdvReac Type Severity Reaction Status Date / Time Penicillins Allergy Intermediate DIZZINESS Verified 09/07/16 07:39 - Medications Medications: Current Medications Albuterol/Ipratropium (Duoneb 3 Mg/0.5 Mg (3 Ml) Ud) 3 ml INH RQ4 PRN PRN Reason: Shortness of Breath Aspirin (Ecotrin) 81 mg PO DAILY [facility] Dexamethasone (Decadron) 4 mg PO BID [facility] Ergocalciferol (Drisdol 50,000 Intl Units Cap) 1 cap PO QWK [facility] Famotidine (Pepcid) 20 mg PO BID [facility] Piperacillin Sod/Tazobactam (Sod 3.375 gm/ Sodium Chloride) 100 mls @ 200 mls/ hr IVPB Q6H [facility] PRN Reason: Protocol Vancomycin/Sodium Chloride (Vancomycin 1 Gm/Ns 200 Ml) 1 gm in 200 mls @ 133.333 mls/hr IVPB Q24H [facility] PRN Reason: Protocol Stop: 09/25/17 15:01 Last Admin: 09/20/17 16:19 Dose: 133.333 mls/hr Sodium Chloride (Sodium Chloride 0.45%) 1,000 mls @ 200 mls/hr IV .Q5H [facility] Last Admin: 09/20/17 18:22 Dose: 200 mls/hr Ketorolac Tromethamine (Toradol) 30 mg IVP Q6 PRN PRN Reason: Pain, severe (8-10) Last Admin: 09/20/17 18:22 Dose: 30 mg Nicotine (Nicoderm Cq) 1 patch TD DAILY [facility] Ondansetron HCl (Zofran Inj) 4 mg IVP Q4H PRN PRN Reason: Nausea/Vomiting Pantoprazole Sodium (Protonix Ec Tab) 40 mg PO DAILY [facility] Quetiapine Fumarate (Seroquel) 25 mg PO HS [facility] Zolpidem Tartrate (Ambien) 5 mg PO HS PRN PRN Reason: Insomnia Physical Exam - Head Exam Head Exam: ATRAUMATIC - Eye Exam Eye Exam: Normal appearance - ENT Exam ENT Exam: Mucous Membranes Dry - Respiratory Exam Respiratory Exam: NORMAL BREATHING PATTERN - Cardiovascular Exam Cardiovascular Exam: +S1, +S2 - GI/Abdominal Exam GI & Abdominal Exam: Normal Bowel Sounds Results - Vital Signs Recent Vital Signs: Last Vital Signs Temp 98 F 09/20/17 17:30 Pulse 91 H 09/20/17 17:30 Resp 20 09/20/17 17:30 BP 144/89 09/20/17 17:30 Pulse Ox 95 05/17/18 17:30 - Labs Result Diagrams: 09/20/17 11:24 09/20/17 11:24 Labs: Laboratory Results - last 24 hr 09/20/17 09/20/17 09/20/17 11:24 11:24 11:24 WBC 18.2 H RBC 5.28 Hgb 14.7 Hct 42.7 MCV 80.8 MCH 27.8 MCHC 34.4 RDW 17.1 H Plt Count 115 L D MPV 9.1 Neut % (Auto) 94.0 H Lymph % (Auto) 3.7 L Thurston % (Auto) 1.8 Eos % (Auto) 0.1 Baso % (Auto) 0.4 Neut # (Auto) 17.1 H Lymph # (Auto) 0.7 L Thurston # (Auto) 0.3 Eos # (Auto) 0.0 Baso # (Auto) 0.1 Neutrophils % (Manual) 92 H Band Neutrophils % 1 Lymphocytes % (Manual) 5 L Monocytes % (Manual) 2 Platelet Estimate Slightly decreased L Anisocytosis (manual) Slight Sodium 134 Potassium 4.4 Chloride 98 Carbon Dioxide 24 Anion Gap 16 BUN 31 H Creatinine 1.2 Est GFR ( Amer) > 60 Est GFR (Non-Af Amer) > 60 Random Glucose 117 H Calcium 9.7 Total Bilirubin 1.3 AST 221 H ALT 340 H D Alkaline Phosphatase 490 H D Total Protein 7.4 Albumin 3.5 D Globulin 3.9 Albumin/Globulin Ratio 0.9 L Lipase Blood Type O NEGATIVE Antibody Screen Negative 09/20/17 15:07 WBC RBC Hgb Hct MCV MCH MCHC RDW Plt Count MPV Neut % (Auto) Lymph % (Auto) Thurston % (Auto) Eos % (Auto) Baso % (Auto) Neut # (Auto) Lymph # (Auto) Thurston # (Auto) Eos # (Auto) Baso # (Auto) Neutrophils % (Manual) Band Neutrophils % Lymphocytes % (Manual) Monocytes % (Manual) Platelet Estimate Anisocytosis (manual) Sodium Potassium Chloride Carbon Dioxide Anion Gap BUN Creatinine Est GFR ( Amer) Est GFR (Non-Af Amer) Random Glucose Calcium Total Bilirubin AST ALT Alkaline Phosphatase Total Protein Albumin Globulin Albumin/Globulin Ratio Lipase 1108 H Blood Type Antibody Screen Assessment & Plan (1) Abdominal pain Assessment and Plan: pancreatitis noted ? related to tumor necrosis GI f/u Status: Acute (2) Leukocytosis Assessment and Plan: on antibiotics Status: Acute (3) Thrombocytopenia Assessment and Plan: too soon to be chemotherapy induced cont. to monitor Status: Acute (4) Small cell lung cancer Assessment and Plan: extensive liver metastasis possible brain metastasis; 2mm lesion outpatient chemotherapy Thank you for this interesting consult. Status: Acute
[2017-09-21] MEDS: Sodium Chloride 0.45% 1,000 ML IV SCH ×4 (02:52→21:39)
[2017-09-21 08:23] LABS: BASO % 0.1 % (0.0-2.0); EOS % 0.1 % (0.0-4.0); HEMOGLOBIN 14.2 g/dL (12.0-18.0); LYMPH # 1.2 K/uL (1.0-4.3); LYMPH % 8.3 % (20.0-40.0); MEAN CELL VOLUME 81.8 fL (80.0-94.0); MEAN CORPUSCULAR HGB CONC 34.3 g/dL (33.0-37.0); MEAN PLATELET VOLUME 8.9 fL (7.2-11.7); MONO # 0.2 K/uL (0.0-0.8); MONO % 1.1 % (0.0-10.0); NEUT # 13.2 K/uL (1.8-7.0); NEUT % 90.4 % (50.0-75.0); NRBC % 0.1 % (0.0-2.0); RBC 5.06 Mil/uL (4.40-5.90); RED CELL DISTRIBUTION WIDTH 16.5 % (11.5-14.5); WHITE BLOOD COUNT 14.6 K/uL (4.8-10.8)
[2017-09-21 08:30] LABS: PLATELET COUNT 83 K/uL (130-400)
[2017-09-21 08:41] LABS: ALB/GLOB RATIO 0.9 (1.0-2.1); ALBUMIN 3.2 g/dL (3.5-5.0); ALT/SGPT 271 U/L (21-72); AMYLASE 210 U/L (30-110); AST/SGOT 206 U/L (17-59); BLOOD UREA NITROGEN 36 mg/dL (9-20); CALCIUM 8.9 mg/dl (8.6-10.4); GFR AFRICAN-AMERICAN > 60; GFR NON-AFRICAN AMERICAN > 60; HDL CHOLESTEROL 42 mg/dL (30-70); LIPASE 509 U/L (23-300)
[2017-09-21 08:51] LABS: LDL CHOLESTEROL 70 mg/dL (0-129)
--- NOTE | 2017-09-21 09:01 | CP.PCM.PN ---
<FrancyBrisa - Last Filed: 09/21/17 15:33> Subjective - Date & Time of Evaluation Date of Evaluation: 09/21/17 Time of Evaluation: 08:59 - Subjective Subjective: Progress Note Patient seen and examined at bedside. No acute events overnight. Vitals stable, afebrile. Patient denies fever, chills. Patient tolerating abdominal pain, but states most of his pain is on his left upper quadrant now. NGT inserted 09/21 at bedside. Patient tolerated procedure well. Patient states he feels uncomfortable but was comforted that it was temporary. Objective - Vital Signs/Intake and Output Vital Signs (last 24 hours): Temp Pulse Resp BP Pulse Ox 98.8 F 75 20 138/70 97 09/21/17 07:34 09/21/17 07:34 09/21/17 07:34 09/21/17 07:34 09/21/17 07:34 Intake and Output: 09/21/17 09/21/17 06:59 18:59 Intake Total 1600 Balance 1600 - Medications Medications: Current Medications Albuterol/Ipratropium (Duoneb 3 Mg/0.5 Mg (3 Ml) Ud) 3 ml INH RQ4 PRN PRN Reason: Shortness of Breath Aspirin (Ecotrin) 81 mg PO DAILY [facility] Dexamethasone (Decadron) 4 mg PO BID [facility] Ergocalciferol (Drisdol 50,000 Intl Units Cap) 1 cap PO QWK [facility] Famotidine (Pepcid) 20 mg PO BID [facility] Aztreonam 1 gm/ Sodium (Chloride) 100 mls @ 200 mls/hr IVPB Q8 [facility] PRN Reason: Protocol Last Admin: 09/21/17 07:00 Dose: 200 mls/hr Vancomycin/Sodium Chloride (Vancomycin 1 Gm/Ns 200 Ml) 1 gm in 200 mls @ 133.333 mls/hr IVPB Q24H [facility] PRN Reason: Protocol Stop: 09/25/17 15:01 Last Admin: 09/20/17 16:19 Dose: 133.333 mls/hr Sodium Chloride (Sodium Chloride 0.45%) 1,000 mls @ 200 mls/hr IV .Q5H [facility] Last Admin: 09/21/17 07:56 Dose: 200 mls/hr Ketorolac Tromethamine (Toradol) 30 mg IVP Q6 PRN PRN Reason: Pain, severe (8-10) Last Admin: 09/21/17 07:46 Dose: 30 mg Nicotine (Nicoderm Cq) 1 patch TD DAILY [facility] Ondansetron HCl (Zofran Inj) 4 mg IVP Q4H PRN PRN Reason: Nausea/Vomiting Pantoprazole Sodium (Protonix Ec Tab) 40 mg PO DAILY [facility] Quetiapine Fumarate (Seroquel) 25 mg PO HS [facility] Last Admin: 09/20/17 21:56 Dose: 25 mg Zolpidem Tartrate (Ambien) 5 mg PO HS PRN PRN Reason: Insomnia Last Admin: 09/20/17 23:44 Dose: 5 mg - Labs Labs: 09/21/17 08:08 09/21/17 08:08 - Additional Findings Additional findings: - Head Exam Head Exam: ATRAUMATIC, NORMAL INSPECTION, NORMOCEPHALIC - Eye Exam Eye Exam: EOMI, Normal appearance, PERRL - Respiratory Exam Respiratory Exam: Wheezes - Cardiovascular Exam Cardiovascular Exam: REGULAR RHYTHM, +S1, +S2 - GI/Abdominal Exam GI & Abdominal Exam: Distended, Hypoactive Bowel Sounds, Tenderness (ruq, luq). absent: Rebound, Rigid - Extremities Exam Extremities exam: Positive for: full ROM, normal inspection. Negative for: pedal edema - Back Exam Back exam: FULL ROM, NORMAL INSPECTION - Neurological Exam Neurological exam: CN II-XII Intact, Normal Gait, Oriented x3 - Psychiatric Exam Psychiatric exam: Flat Affect, Normal Affect, Normal Mood - Skin Skin Exam: Dry, Intact, Normal Color, Warm Assessment and Plan - Assessment and Plan (Free Text) Assessment: 62M with nausea, vomiting x2 episodes, abdominal pain was found to have pancreatitis and distended stomach on CT abdomen. GI Dr. Cortés Heme/onc Dr. Neely Acute Pancreatitis ? secondary to distended stomach ? secondary to tumor necrosis ? secondary to chemo x 2 doses Lipase 1108, downtrending 200cc/hr decreased to 1/2NS @ 100cc/hr 09/21/17 f/u AM CXR Dexamthasone 4 mg PO BID Zofran 4mg IVP Q4H N/V Prochlorperazine 10 mg Q6H EGD and colonsocopy done 1 yr ago- gastritis, c polyps, in t hem leukocytosis, afebrile, downtrending Thrombocytopenia continue to monitor Lung CA, small cell carcinoma on Pathology from FNA, wheezing and coughing Duoneb 3ml INH RQ4 PRN Piperacillin/Tazobactam 3.375 gm Q6H, patient feels dizzy when taking penicillins. Patient can take zosyn. will monitor Vancomycin 1 gm Q24 patient to have port-a-cath 09/26 f/u aPTT on Renal Cancer Liver Masses on CT abdomen/pelvis likely metastasis outpatient chemotherapy Possible brain metastasis; 2mm lesion outpatient chemotherapy Anxiety history ambien seroquel smoking history last cigarette was 09/17 Nicotine TD Patch Prophylaxis SCD ranitidine Dr. Anabell Sen, DO PGY1 <Anson Hung H - Last Filed: 09/21/17 15:55> Objective - Vital Signs/Intake and Output Vital Signs (last 24 hours): Temp Pulse Resp BP Pulse Ox 98.8 F 75 20 138/70 97 09/21/17 07:34 09/21/17 07:34 09/21/17 07:34 09/21/17 07:34 09/21/17 07:34 Intake and Output: 09/21/17 09/21/17 06:59 18:59 Intake Total 1600 950 Balance 1600 950 - Medications Medications: Current Medications Albuterol/Ipratropium (Duoneb 3 Mg/0.5 Mg (3 Ml) Ud) 3 ml INH RQ4 PRN PRN Reason: Shortness of Breath Aspirin (Ecotrin) 81 mg PO DAILY [facility] Last Admin: 09/21/17 10:08 Dose: 81 mg Dexamethasone (Decadron) 4 mg PO BID [facility] Last Admin: 09/21/17 10:08 Dose: 4 mg Ergocalciferol (Drisdol 50,000 Intl Units Cap) 1 cap PO QWK [facility] Last Admin: 09/21/17 10:08 Dose: 1 cap Famotidine (Pepcid) 20 mg PO BID [facility] Last Admin: 09/21/17 10:08 Dose: 20 mg Vancomycin/Sodium Chloride (Vancomycin 1 Gm/Ns 200 Ml) 1 gm in 200 mls @ 133.333 mls/hr IVPB Q24H [facility] PRN Reason: Protocol Stop: 09/25/17 15:01 Last Admin: 09/21/17 14:26 Dose: 133.333 mls/hr Piperacillin Sod/Tazobactam Sod (Zosyn 3.375 Gm Iv Premix) 3.375 gm in 50 mls @ 100 mls/hr IVPB Q6H [facility] PRN Reason: Protocol Last Admin: 09/21/17 11:00 Dose: 100 mls/hr Sodium Chloride (Sodium Chloride 0.45%) 1,000 mls @ 100 mls/hr IV .Q10H [facility] Last Admin: 09/21/17 10:12 Dose: 100 mls/hr Ketorolac Tromethamine (Toradol) 30 mg IVP Q6 PRN PRN Reason: Pain, severe (8-10) Last Admin: 09/21/17 14:25 Dose: 30 mg Loratadine (Claritin) 10 mg PO HS PRN PRN Reason: Allergy symptoms Nicotine (Nicoderm Cq) 1 patch TD DAILY [facility] Last Admin: 09/21/17 10:08 Dose: 1 patch Ondansetron HCl (Zofran Inj) 4 mg IVP Q4H PRN PRN Reason: Nausea/Vomiting Pantoprazole Sodium (Protonix Ec Tab) 40 mg PO DAILY [facility] Last Admin: 09/21/17 10:08 Dose: 40 mg Quetiapine Fumarate (Seroquel) 25 mg PO HS [facility] Last Admin: 09/20/17 21:56 Dose: 25 mg Triamterene/HCTZ (Dyazide 25 Mg-37.5 Mg) 1 cap PO DAILY [facility] Last Admin: 09/21/17 13:03 Dose: 1 cap Zolpidem Tartrate (Ambien) 5 mg PO HS PRN PRN Reason: Insomnia Last Admin: 09/20/17 23:44 Dose: 5 mg - Labs Labs: 09/21/17 08:08 09/21/17 08:08 Attending/Attestation - Attestation I have personally seen and examined this patient.: Yes I have fully participated in the care of the patient.: Yes I have reviewed all pertinent clinical information, including history, physical exam and plan: Yes Notes (Text): Medical attending: Patient was seen and examined by me. Agree with the above note by the resident The patient reported he felt only little less pain and little less swelling. He explained he still felt terriblly bloated and uncomfortable. He has not had a BM since comming yesterday. Will place NGT later today for a short period of time to see if it provides patient any relief. He remains on IVF, we decreased the rate slightly since the CXRAY shows some signs of fluid overload should we go to fast Anson Hung
--- NOTE | 2017-09-21 09:51 | RAD ---
HISTORY: evaluate COMPARISON: 09/05/2017 FINDINGS: LUNGS: Increasing extensive right-sided pulmonary opacity sparing the apex. Patchy opacity at left lung base. Nonspecific findings. Possible pneumonia. Rule out pulmonary edema. PLEURA: No significant pleural effusion identified, no pneumothorax apparent. CARDIOVASCULAR: Normal heart size. Congestive change. OSSEOUS STRUCTURES: No significant abnormalities. VISUALIZED UPPER ABDOMEN: Normal. OTHER FINDINGS: None. IMPRESSION: Extensive right-sided pulmonary opacity with patchy opacity at left base and pulmonary vascular congestive change. Pneumonia versus pulmonary edema.
[2017-09-21] MEDS ORDERED: Pantoprazole 40 mg EC Tab PO SCH (10:00)
[2017-09-21] MEDS ORDERED: Ergocalciferol 50,000 Intl Units Cap PO SCH (10:00)
[2017-09-21 10:51] LABS: ANISOCYTOSIS SLIGHT; BANDS 5 % (0-2); LYMPHOCYTE 4 % (20-40); MONOCYTE 1 % (0-10); NEUTROPHIL 90 % (50-75); PLATELET ESTIMATE DECREASED (NORMAL); TOTAL CELLS COUNTED 100
[2017-09-21 10:53] LABS: GIANT PLATELETS PRESENT
[2017-09-21 10:54] LABS: TOXIC GRANULATION PRESENT
[2017-09-21] MEDS: Piperacill/Tazo 3.375gm in Dex 3.375 GM/50 ML BAG IVPB SCH ×3 (11:00→21:44)
--- NOTE | 2017-09-21 11:45 | CP.PCM.PN ---
<NaveedCatalinacruzitostephanie - Last Filed: 09/21/17 11:51> Subjective - Date & Time of Evaluation Date of Evaluation: 09/21/17 Time of Evaluation: 11:41 - Subjective Subjective: Hematology-Oncology Progress Note- Dr. Neely's service Patient seen and examined in no apparent acute distress. Patient reiterated course of present events. He states that he began chemotherapy a few days earlier and tolerated therapy well. He states that he attempted to begin another treatment course yesterday; however so. experienced an episode of hematochezia while attempting to have a bowel movement yesterday. Patient states that he was feeling abdominal pain, felt weak and nauseous all the while. He called his oncologist who instructed him to go to the emergency department for further evaluation. Patient states that he he has been having abdominal pain which has been waxing and waning requiring the use of pain medication. Patient's close family friend Heron Wright present bedside. Per patient's request, he asked (for Heron) to be notified if necessary regarding treatment course. He can be reached at [phone]. Objective - Vital Signs/Intake and Output Vital Signs (last 24 hours): Temp Pulse Resp BP Pulse Ox 98.8 F 75 20 138/70 97 09/21/17 07:34 09/21/17 07:34 09/21/17 07:34 09/21/17 07:34 09/21/17 07:34 Intake and Output: 09/21/17 09/21/17 06:59 18:59 Intake Total 1600 Balance 1600 - Medications Medications: Current Medications Albuterol/Ipratropium (Duoneb 3 Mg/0.5 Mg (3 Ml) Ud) 3 ml INH RQ4 PRN PRN Reason: Shortness of Breath Aspirin (Ecotrin) 81 mg PO DAILY [facility] Last Admin: 09/21/17 10:08 Dose: 81 mg Dexamethasone (Decadron) 4 mg PO BID [facility] Last Admin: 09/21/17 10:08 Dose: 4 mg Ergocalciferol (Drisdol 50,000 Intl Units Cap) 1 cap PO QWK [facility] Last Admin: 09/21/17 10:08 Dose: 1 cap Famotidine (Pepcid) 20 mg PO BID [facility] Last Admin: 09/21/17 10:08 Dose: 20 mg Home Med (Cetirizine Hcl [Cetirizine Hcl]) 10 mg PO HS PRN PRN Reason: Allergy symptoms Vancomycin/Sodium Chloride (Vancomycin 1 Gm/Ns 200 Ml) 1 gm in 200 mls @ 133.333 mls/hr IVPB Q24H [facility] PRN Reason: Protocol Stop: 09/25/17 15:01 Last Admin: 09/20/17 16:19 Dose: 133.333 mls/hr Piperacillin Sod/Tazobactam Sod (Zosyn 3.375 Gm Iv Premix) 3.375 gm in 50 mls @ 100 mls/hr IVPB Q6H [facility] PRN Reason: Protocol Last Admin: 09/21/17 11:00 Dose: 100 mls/hr Sodium Chloride (Sodium Chloride 0.45%) 1,000 mls @ 100 mls/hr IV .Q10H [facility] Last Admin: 09/21/17 10:12 Dose: 100 mls/hr Ketorolac Tromethamine (Toradol) 30 mg IVP Q6 PRN PRN Reason: Pain, severe (8-10) Last Admin: 09/21/17 07:46 Dose: 30 mg Nicotine (Nicoderm Cq) 1 patch TD DAILY [facility] Last Admin: 09/21/17 10:08 Dose: 1 patch Ondansetron HCl (Zofran Inj) 4 mg IVP Q4H PRN PRN Reason: Nausea/Vomiting Pantoprazole Sodium (Protonix Ec Tab) 40 mg PO DAILY [facility] Last Admin: 09/21/17 10:08 Dose: 40 mg Quetiapine Fumarate (Seroquel) 25 mg PO HS [facility] Last Admin: 09/20/17 21:56 Dose: 25 mg Triamterene/HCTZ (Dyazide 25 Mg-37.5 Mg) cap PO DAILY [facility] Zolpidem Tartrate (Ambien) 5 mg PO HS PRN PRN Reason: Insomnia Last Admin: 09/20/17 23:44 Dose: 5 mg - Labs Labs: 09/21/17 08:08 09/21/17 08:08 - Constitutional Appears: Non-toxic - Head Exam Head Exam: ATRAUMATIC, NORMAL INSPECTION, NORMOCEPHALIC - Eye Exam Eye Exam: EOMI, PERRL - Neck Exam Neck Exam: Full ROM - Respiratory Exam Respiratory Exam: Wheezes - Cardiovascular Exam Cardiovascular Exam: +S1, +S2 - GI/Abdominal Exam GI & Abdominal Exam: Soft, Tenderness (epigastric and left upper quadrant) - Extremities Exam Extremities Exam: Full ROM - Neurological Exam Neurological Exam: Alert, Awake, Oriented x3 - Psychiatric Exam Psychiatric exam: Normal Affect, Normal Mood - Skin Skin Exam: Warm Assessment and Plan - Assessment and Plan (Free Text) Assessment: Abdominal pain Assessment and Plan: Pancreatitis noted on CT imaging NPO, IV fluid hydration and pain control GI on the case- Clinical presentation likely due to effects of metastatic disease Status: Acute Leukocytosis Assessment and Plan: Trending downwards. Likely secondary to pancreatitis On antibiotic therapy Monitor Status: Acute Thrombocytopenia Assessment and Plan: Monitor Avoid agents that may further exacerbate presentation Avoid Heparin Status: Acute Small cell lung cancer Assessment and Plan: Liver mets noted on CT imaging from 09/06/17 Concerns for possible brain metastasis noted on Brain MRI from 09/06/17 for a 2mm lesion Patient recently began outpatient chemotherapy Status: Acute Prophylactic Measure Assessment and Plan: On GI prophylaxis SCDs Avoid chemical anticogaulation in light of hematochezia <Evin Neely - Last Filed: 09/21/17 22:56> Objective - Vital Signs/Intake and Output Vital Signs (last 24 hours): Temp Pulse Resp BP Pulse Ox 98.1 F 90 20 121/78 93 L 09/21/17 16:00 09/21/17 16:00 09/21/17 16:00 09/21/17 16:00 09/21/17 16:00 Intake and Output: 09/21/17 09/22/17 18:59 06:59 Intake Total 950 Balance 950 - Medications Medications: Current Medications Albuterol/Ipratropium (Duoneb 3 Mg/0.5 Mg (3 Ml) Ud) 3 ml INH RQ4 PRN PRN Reason: Shortness of Breath Aspirin (Ecotrin) 81 mg PO DAILY [facility] Last Admin: 09/21/17 10:08 Dose: 81 mg Dexamethasone (Decadron Inj) 4 mg IVP Q12 [facility] Last Admin: 09/21/17 21:40 Dose: 4 mg Ergocalciferol (Drisdol 50,000 Intl Units Cap) 1 cap PO QWK [facility] Last Admin: 09/21/17 10:08 Dose: 1 cap Famotidine (Pepcid) 20 mg PO BID [facility] Last Admin: 09/21/17 18:40 Dose: Not Given Vancomycin/Sodium Chloride (Vancomycin 1 Gm/Ns 200 Ml) 1 gm in 200 mls @ 133.333 mls/hr IVPB Q24H [facility] PRN Reason: Protocol Stop: 09/25/17 15:01 Last Admin: 09/21/17 14:26 Dose: 133.333 mls/hr Piperacillin Sod/Tazobactam Sod (Zosyn 3.375 Gm Iv Premix) 3.375 gm in 50 mls @ 100 mls/hr IVPB Q6H [facility] PRN Reason: Protocol Last Admin: 09/21/17 21:44 Dose: 100 mls/hr Sodium Chloride (Sodium Chloride 0.45%) 1,000 mls @ 100 mls/hr IV .Q10H [facility] Last Admin: 09/21/17 21:39 Dose: 100 mls/hr Ketorolac Tromethamine (Toradol) 30 mg IVP Q6 PRN PRN Reason: Pain, severe (8-10) Last Admin: 09/21/17 21:34 Dose: 30 mg Loratadine (Claritin) 10 mg PO HS PRN PRN Reason: Allergy symptoms Nicotine (Nicoderm Cq) 1 patch TD DAILY [facility] Last Admin: 09/21/17 10:08 Dose: 1 patch Ondansetron HCl (Zofran Inj) 4 mg IVP Q4H PRN PRN Reason: Nausea/Vomiting Pantoprazole Sodium (Protonix Inj) 40 mg IVP DAILY [facility] Quetiapine Fumarate (Seroquel) 25 mg PO HS [facility] Last Admin: 09/21/17 21:41 Dose: Not Given Triamterene/HCTZ (Dyazide 25 Mg-37.5 Mg) 1 cap PO DAILY [facility] Last Admin: 09/21/17 13:03 Dose: 1 cap Zolpidem Tartrate (Ambien) 5 mg PO HS PRN PRN Reason: Insomnia Last Admin: 09/20/17 23:44 Dose: 5 mg - Labs Labs: 09/21/17 08:08 09/21/17 08:08 Assessment and Plan (1) Abdominal pain Status: Acute (2) Leukocytosis Status: Acute (3) Thrombocytopenia Status: Acute (4) Small cell lung cancer Status: Acute - Assessment and Plan (Free Text) Assessment: Pt seen and examined, agree with residents note. Clinically improved with NG tube. Pancreatitis noted on CT, lipase and LFT's improved. ? chemo induced vs mets. outpatient chemotherapy for stage IV small cell lung cancer.
[2017-09-21] MEDS: hydroCHLOROthiazide-Triamterene 25 mg-37.5 mg Cap UD PO SCH (13:03)
--- NOTE | 2017-09-21 13:10 | CARD ---
APPROVED REPORT EKG Measurement Heart [id number] <Conclusion> Normal sinus rhythm Normal ECG
[2017-09-21] MEDS: Vancomycin 1 gm/NS 200 ml 1 GM/200 ML BAG IVPB SCH (14:26)
--- NOTE | 2017-09-21 16:54 | RAD ---
HISTORY: ngt insertion COMPARISON: 09/21/2017 at 9:13 a.m. FINDINGS: LUNGS: Extensive right-sided pulmonary opacity unchanged compared earlier examination. No left-sided opacity appreciated on the current examination. PLEURA: No significant pleural effusion identified, no pneumothorax apparent. CARDIOVASCULAR: Normal heart size. Mild congestive change. A nasogastric tube is now evident extending to the central abdomen. OSSEOUS STRUCTURES: Right glenohumeral arthroplasty. VISUALIZED UPPER ABDOMEN: Normal. OTHER FINDINGS: None. IMPRESSION: Extensive right-sided pulmonary opacity. Mild congestive change. New nasogastric tube noted extending beneath the diaphragm. Cc
--- NOTE | 2017-09-21 19:11 | CP.PCM.PN ---
Subjective - Date & Time of Evaluation Date of Evaluation: 09/21/17 Time of Evaluation: 19:08 - Subjective Subjective: f/u abdom pain. Family present. Reports feeling better. less abd pain. Less vomiting. Feels better with NG tube. Denies RB, melena, fever, chills, SZ, loc, AMEZQUITA ,cough, hematuria Objective - Vital Signs/Intake and Output Vital Signs (last 24 hours): Temp Pulse Resp BP Pulse Ox 98.1 F 90 20 121/78 93 L 09/21/17 16:00 09/21/17 16:00 09/21/17 16:00 09/21/17 16:00 09/21/17 16:00 Intake and Output: 09/21/17 09/22/17 18:59 06:59 Intake Total 950 Balance 950 - Medications Medications: Current Medications Albuterol/Ipratropium (Duoneb 3 Mg/0.5 Mg (3 Ml) Ud) 3 ml INH RQ4 PRN PRN Reason: Shortness of Breath Aspirin (Ecotrin) 81 mg PO DAILY [facility] Last Admin: 09/21/17 10:08 Dose: 81 mg Dexamethasone (Decadron Inj) 4 mg IVP Q12 [facility] Ergocalciferol (Drisdol 50,000 Intl Units Cap) 1 cap PO QWK [facility] Last Admin: 09/21/17 10:08 Dose: 1 cap Famotidine (Pepcid) 20 mg PO BID [facility] Last Admin: 09/21/17 10:08 Dose: 20 mg Vancomycin/Sodium Chloride (Vancomycin 1 Gm/Ns 200 Ml) 1 gm in 200 mls @ 133.333 mls/hr IVPB Q24H [facility] PRN Reason: Protocol Stop: 09/25/17 15:01 Last Admin: 09/21/17 14:26 Dose: 133.333 mls/hr Piperacillin Sod/Tazobactam Sod (Zosyn 3.375 Gm Iv Premix) 3.375 gm in 50 mls @ 100 mls/hr IVPB Q6H [facility] PRN Reason: Protocol Last Admin: 09/21/17 16:45 Dose: 100 mls/hr Sodium Chloride (Sodium Chloride 0.45%) 1,000 mls @ 100 mls/hr IV .Q10H [facility] Last Admin: 09/21/17 10:12 Dose: 100 mls/hr Ketorolac Tromethamine (Toradol) 30 mg IVP Q6 PRN PRN Reason: Pain, severe (8-10) Last Admin: 09/21/17 14:25 Dose: 30 mg Loratadine (Claritin) 10 mg PO HS PRN PRN Reason: Allergy symptoms Nicotine (Nicoderm Cq) 1 patch TD DAILY [facility] Last Admin: 09/21/17 10:08 Dose: 1 patch Ondansetron HCl (Zofran Inj) 4 mg IVP Q4H PRN PRN Reason: Nausea/Vomiting Pantoprazole Sodium (Protonix Inj) 40 mg IVP DAILY [facility] Quetiapine Fumarate (Seroquel) 25 mg PO HS [facility] Last Admin: 09/20/17 21:56 Dose: 25 mg Triamterene/HCTZ (Dyazide 25 Mg-37.5 Mg) 1 cap PO DAILY [facility] Last Admin: 09/21/17 13:03 Dose: 1 cap Zolpidem Tartrate (Ambien) 5 mg PO HS PRN PRN Reason: Insomnia Last Admin: 09/20/17 23:44 Dose: 5 mg - Labs Labs: 09/21/17 08:08 09/21/17 08:08 - Constitutional Appears: Non-toxic - Respiratory Exam Respiratory Exam: Rhonchi - Cardiovascular Exam Cardiovascular Exam: RRR - GI/Abdominal Exam GI & Abdominal Exam: Distended, Soft, Tenderness, Normal Bowel Sounds. absent: Guarding, Rigid, Mass - Extremities Exam Extremities Exam: absent: Calf Tenderness - Neurological Exam Neurological Exam: Alert, Awake, Oriented x3 Assessment and Plan (1) HTN (hypertension) Status: Acute (2) Renal metastasis Status: Acute (3) Liver metastases Status: Acute (4) Abnormal LFTs Assessment & Plan: Liver mets/. LFTs less today Status: Acute (5) Abdominal pain Assessment & Plan: Pt reports pain is mid and lower abdomen, left>right. Only min epig pain Status: Acute (6) Metastatic cancer Status: Acute (7) Pancreatitis Assessment & Plan: Consider chemo as source, or mets. DOubt biliary stones.. WBC improving. Rec: Antibioticcs, IV fluids, check labs, advance diet when able. Status: Acute (8) Leukocytosis Status: Acute (9) Lung mass Status: Acute
[2017-09-21] MEDS: Dexamethasone 4 mg/1 ml IVP SCH (21:40)
[2017-09-22] MEDS ORDERED: DiphenhydrAMINE 50 mg/ml Inj IVP STA (00:26)
[2017-09-22] MEDS: Piperacill/Tazo 3.375gm in Dex 3.375 GM/50 ML BAG IVPB SCH ×4 (04:35→22:09)
[2017-09-22] MEDS: Sodium Chloride 0.45% 1,000 ML IV SCH ×2 (05:51→12:00)
--- NOTE | 2017-09-22 07:44 | CP.PCM.PN ---
Subjective - Date & Time of Evaluation Date of Evaluation: 09/22/17 Time of Evaluation: 07:26 - Subjective Subjective: PGY-[address] Hung's service: Pt seen and examined at bedside. Nursing reports no acute events overnight. Objective - Vital Signs/Intake and Output Vital Signs (last 24 hours): Temp Pulse Resp BP Pulse Ox 98.6 F 75 20 124/76 96 09/22/17 00:05 09/22/17 00:05 09/22/17 00:05 09/22/17 00:05 09/22/17 00:05 Intake and Output: 09/22/17 09/22/17 06:59 18:59 Intake Total 700 Output Total 1300 Balance -600 - Medications Medications: Current Medications Albuterol/Ipratropium (Duoneb 3 Mg/0.5 Mg (3 Ml) Ud) 3 ml INH RQ4 PRN PRN Reason: Shortness of Breath Aspirin (Ecotrin) 81 mg PO DAILY [facility] Last Admin: 09/21/17 10:08 Dose: 81 mg Dexamethasone (Decadron Inj) 4 mg IVP Q12 [facility] Last Admin: 09/21/17 21:40 Dose: 4 mg Ergocalciferol (Drisdol 50,000 Intl Units Cap) 1 cap PO QWK [facility] Last Admin: 09/21/17 10:08 Dose: 1 cap Famotidine (Pepcid) 20 mg PO BID [facility] Last Admin: 09/21/17 18:40 Dose: Not Given Vancomycin/Sodium Chloride (Vancomycin 1 Gm/Ns 200 Ml) 1 gm in 200 mls @ 133.333 mls/hr IVPB Q24H [facility] PRN Reason: Protocol Stop: 09/25/17 15:01 Last Admin: 09/21/17 14:26 Dose: 133.333 mls/hr Piperacillin Sod/Tazobactam Sod (Zosyn 3.375 Gm Iv Premix) 3.375 gm in 50 mls @ 100 mls/hr IVPB Q6H [facility] PRN Reason: Protocol Last Admin: 09/22/17 04:35 Dose: 100 mls/hr Sodium Chloride (Sodium Chloride 0.45%) 1,000 mls @ 100 mls/hr IV .Q10H [facility] Last Admin: 09/22/17 05:51 Dose: 100 mls/hr Ketorolac Tromethamine (Toradol) 30 mg IVP Q6 PRN PRN Reason: Pain, severe (8-10) Last Admin: 09/21/17 21:34 Dose: 30 mg Loratadine (Claritin) 10 mg PO HS PRN PRN Reason: Allergy symptoms Nicotine (Nicoderm Cq) 1 patch TD DAILY [facility] Last Admin: 09/21/17 10:08 Dose: 1 patch Ondansetron HCl (Zofran Inj) 4 mg IVP Q4H PRN PRN Reason: Nausea/Vomiting Pantoprazole Sodium (Protonix Inj) 40 mg IVP DAILY [facility] Quetiapine Fumarate (Seroquel) 25 mg PO HS [facility] Last Admin: 09/21/17 21:41 Dose: Not Given Triamterene/HCTZ (Dyazide 25 Mg-37.5 Mg) 1 cap PO DAILY [facility] Last Admin: 09/21/17 13:03 Dose: 1 cap Zolpidem Tartrate (Ambien) 5 mg PO HS PRN PRN Reason: Insomnia Last Admin: 09/20/17 23:44 Dose: 5 mg - Labs Labs: 09/21/17 08:08 09/21/17 08:08 - Additional Findings Additional findings: - Head Exam Head Exam: ATRAUMATIC, NORMAL INSPECTION, NORMOCEPHALIC - Eye Exam Eye Exam: EOMI, Normal appearance, PERRL - Respiratory Exam Respiratory Exam: Wheezes - Cardiovascular Exam Cardiovascular Exam: REGULAR RHYTHM, +S1, +S2 - GI/Abdominal Exam GI & Abdominal Exam: Distended, Hypoactive Bowel Sounds, Tenderness (ruq, luq). absent: Rebound, Rigid - Extremities Exam Extremities exam: Positive for: full ROM, normal inspection. Negative for: pedal edema - Back Exam Back exam: FULL ROM, NORMAL INSPECTION - Neurological Exam Neurological exam: CN II-XII Intact, Normal Gait, Oriented x3 - Psychiatric Exam Psychiatric exam: Flat Affect, Normal Affect, Normal Mood - Skin Skin Exam: Dry, Intact, Normal Color, Warm
[2017-09-22 08:17] LABS: HEMOGLOBIN 13.7 g/dL (12.0-18.0); LYMPH # 0.5 K/uL (1.0-4.3); LYMPH % 3.9 % (20.0-40.0); MEAN CELL VOLUME 81.7 fL (80.0-94.0); MEAN CORPUSCULAR HEMOGLOBIN 28.2 pg (27.0-31.0); MEAN CORPUSCULAR HGB CONC 34.5 g/dL (33.0-37.0); MEAN PLATELET VOLUME 8.7 fL (7.2-11.7); MONO # 0.1 K/uL (0.0-0.8); MONO % 0.8 % (0.0-10.0); NEUT % 95.3 % (50.0-75.0); PLATELET COUNT 84 K/uL (130-400); RBC 4.87 Mil/uL (4.40-5.90); RED CELL DISTRIBUTION WIDTH 16.9 % (11.5-14.5); WHITE BLOOD COUNT 13.6 K/uL (4.8-10.8)
[2017-09-22 09:00] LABS: ALB/GLOB RATIO 0.8 (1.0-2.1); ALBUMIN 3.1 g/dL (3.5-5.0); ALT/SGPT 219 U/L (21-72); AST/SGOT 178 U/L (17-59); BLOOD UREA NITROGEN 41 mg/dL (9-20); CALCIUM 8.8 mg/dl (8.6-10.4); GFR AFRICAN-AMERICAN > 60; GFR NON-AFRICAN AMERICAN 56; LIPASE 158 U/L (23-300)
[2017-09-22] MEDS: Dexamethasone 4 mg/1 ml IVP SCH ×2 (09:57→22:09)
[2017-09-22] MEDS: hydroCHLOROthiazide-Triamterene 25 mg-37.5 mg Cap UD PO SCH ×2 (10:04→15:06)
[2017-09-22 10:44] LABS: LYMPHOCYTE 5 % (20-40); MONOCYTE 1 % (0-10); NEUTROPHIL 94 % (50-75); TOTAL CELLS COUNTED 100
[2017-09-22 10:45] LABS: PLATELET ESTIMATE NORMAL (NORMAL)
[2017-09-22 10:47] LABS: ANISOCYTOSIS SLIGHT; TOXIC GRANULATION PRESENT
[2017-09-22 10:48] LABS: HYPOCHROMIC SLIGHT; POLYCHROMIC SLIGHT
--- NOTE | 2017-09-22 10:57 | CP.PCM.PN ---
<EzraVerónica - Last Filed: 09/22/17 11:18> Subjective - Date & Time of Evaluation Date of Evaluation: 09/22/17 Time of Evaluation: 08:00 - Subjective Subjective: Progress Note Patient seen and examined at bedside. No acute events overnight. Vitals stable, afebrile. Patient denies fever, chills. Patient with the same mild left quadrant abdominal pain. Had 3 bm yesterday. NG tube was removed at bedside this morning. Patient has been NPO. Denied Nausea or vomiting.No other complaints at this time. Objective - Vital Signs/Intake and Output Vital Signs (last 24 hours): Temp Pulse Resp BP Pulse Ox 98.3 F 76 20 110/75 97 09/22/17 08:00 09/22/17 08:00 09/22/17 08:00 09/22/17 08:00 09/22/17 08:00 Intake and Output: 09/22/17 09/22/17 06:59 18:59 Intake Total 700 800 Output Total 1300 1600 Balance -600 -800 - Medications Medications: Current Medications Albuterol/Ipratropium (Duoneb 3 Mg/0.5 Mg (3 Ml) Ud) 3 ml INH RQ4 PRN PRN Reason: Shortness of Breath Aspirin (Ecotrin) 81 mg PO DAILY [facility] Last Admin: 09/22/17 10:04 Dose: Not Given Dexamethasone (Decadron Inj) 4 mg IVP Q12 [facility] Last Admin: 09/22/17 09:57 Dose: 4 mg Ergocalciferol (Drisdol 50,000 Intl Units Cap) 1 cap PO QWK [facility] Last Admin: 09/21/17 10:08 Dose: 1 cap Famotidine (Pepcid) 20 mg PO BID [facility] Last Admin: 09/22/17 10:04 Dose: Not Given Vancomycin/Sodium Chloride (Vancomycin 1 Gm/Ns 200 Ml) 1 gm in 200 mls @ 133.333 mls/hr IVPB Q24H [facility] PRN Reason: Protocol Stop: 09/25/17 15:01 Last Admin: 09/21/17 14:26 Dose: 133.333 mls/hr Piperacillin Sod/Tazobactam Sod (Zosyn 3.375 Gm Iv Premix) 3.375 gm in 50 mls @ 100 mls/hr IVPB Q6H [facility] PRN Reason: Protocol Last Admin: 09/22/17 10:07 Dose: 100 mls/hr Sodium Chloride (Sodium Chloride 0.45%) 1,000 mls @ 100 mls/hr IV .Q10H [facility] Last Admin: 09/22/17 05:51 Dose: 100 mls/hr Ketorolac Tromethamine (Toradol) 30 mg IVP Q6 PRN PRN Reason: Pain, severe (8-10) Last Admin: 09/22/17 09:49 Dose: 30 mg Loratadine (Claritin) 10 mg PO HS PRN PRN Reason: Allergy symptoms Nicotine (Nicoderm Cq) 1 patch TD DAILY [facility] Last Admin: 09/22/17 09:52 Dose: 1 patch Ondansetron HCl (Zofran Inj) 4 mg IVP Q4H PRN PRN Reason: Nausea/Vomiting Pantoprazole Sodium (Protonix Inj) 40 mg IVP DAILY [facility] Last Admin: 09/22/17 09:54 Dose: 40 mg Quetiapine Fumarate (Seroquel) 25 mg PO HS [facility] Last Admin: 09/21/17 21:41 Dose: Not Given Triamterene/HCTZ (Dyazide 25 Mg-37.5 Mg) 1 cap PO DAILY [facility] Last Admin: 09/22/17 10:04 Dose: Not Given Zolpidem Tartrate (Ambien) 5 mg PO HS PRN PRN Reason: Insomnia Last Admin: 09/20/17 23:44 Dose: 5 mg - Labs Labs: 09/22/17 08:07 09/22/17 08:07 - Constitutional Appears: Non-toxic, No Acute Distress - Head Exam Head Exam: ATRAUMATIC, NORMAL INSPECTION - Eye Exam Eye Exam: EOMI - ENT Exam ENT Exam: Mucous Membranes Moist - Respiratory Exam Respiratory Exam: Decreased Breath Sounds, NORMAL BREATHING PATTERN. absent: Accessory Muscle Use - Cardiovascular Exam Cardiovascular Exam: REGULAR RHYTHM, +S1, +S2 - GI/Abdominal Exam GI & Abdominal Exam: Distended, Soft, Hypoactive Bowel Sounds. absent: Firm, Guarding, Tenderness - Extremities Exam Extremities Exam: Normal Inspection - Back Exam Back Exam: NORMAL INSPECTION - Neurological Exam Neurological Exam: Alert, Awake, CN II-XII Intact, Oriented x3 - Psychiatric Exam Psychiatric exam: Normal Affect, Normal Mood Assessment and Plan - Assessment and Plan (Free Text) Assessment: Lung CA, small cell carcinoma with mets (liver, brain, kidney) Dr. Neely consulted, help appreciated - Can get outpatient chemotherapy, had already received 2 doses Duoneb 3ml INH RQ4 PRN Piperacillin/Tazobactam 3.375 gm Q6H Vancomycin 1 gm Q24 Acute Pancreatitis ? secondary to tumor necrosis vs, chemo Pancreatitis noted on CT imaging Lipase downtrending LFTS elevated - likely secondary to mets 1/NS at 50 cc/hour Diet advanced to clear liquids, NG tube removed today Dexamthasone 4 mg PO BID Zofran 4mg IVP Q4H N/V Prochlorperazine 10 mg Q6H Toradol prn pain Dr. Cortés consulted - help appreciated: Leukocytosis afebrile, downtrending On Zosyn and Vanc Thrombocytopenia continue to monitor no anticoagulation will encourage ambulation Hx. Anxiety Seroquel 25mg PO HS Insomnia Ambien 5mg PO HS prn Tobacco use last cigarette was 09/17 Nicotine TD Patch Prophylaxis SCD no anticaogulation due to thrombocytopenia Full liquid diet - NG tube removed today <Anson Hung H - Last Filed: 09/22/17 18:04> Objective - Vital Signs/Intake and Output Vital Signs (last 24 hours): Temp Pulse Resp BP Pulse Ox 98.0 F 74 20 145/85 96 09/22/17 16:00 09/22/17 16:00 09/22/17 16:00 09/22/17 16:00 09/22/17 16:00 Intake and Output: 09/22/17 09/22/17 06:59 18:59 Intake Total 700 800 Output Total 1300 1600 Balance -600 -800 - Medications Medications: Current Medications Albuterol/Ipratropium (Duoneb 3 Mg/0.5 Mg (3 Ml) Ud) 3 ml INH RQ4 PRN PRN Reason: Shortness of Breath Dexamethasone (Decadron Inj) 4 mg IVP Q12 [facility] Last Admin: 09/22/17 09:57 Dose: 4 mg Ergocalciferol (Drisdol 50,000 Intl Units Cap) 1 cap PO QWK [facility] Last Admin: 09/21/17 10:08 Dose: 1 cap Famotidine (Pepcid) 20 mg PO BID [facility] Last Admin: 09/22/17 17:42 Dose: 20 mg Vancomycin/Sodium Chloride (Vancomycin 1 Gm/Ns 200 Ml) 1 gm in 200 mls @ 133.333 mls/hr IVPB Q24H [facility] PRN Reason: Protocol Stop: 09/25/17 15:01 Last Admin: 09/22/17 14:27 Dose: 133.333 mls/hr Piperacillin Sod/Tazobactam Sod (Zosyn 3.375 Gm Iv Premix) 3.375 gm in 50 mls @ 100 mls/hr IVPB Q6H [facility] PRN Reason: Protocol Last Admin: 09/22/17 16:23 Dose: 100 mls/hr Sodium Chloride (Sodium Chloride 0.45%) 1,000 mls @ 50 mls/hr IV .Q20H [facility] Last Admin: 09/22/17 12:00 Dose: 50 mls/hr Ketorolac Tromethamine (Toradol) 30 mg IVP Q6 PRN PRN Reason: Pain, severe (8-10) Last Admin: 09/22/17 15:11 Dose: 30 mg Loratadine (Claritin) 10 mg PO HS PRN PRN Reason: Allergy symptoms Nicotine (Nicoderm Cq) 1 patch TD DAILY [facility] Last Admin: 09/22/17 09:52 Dose: 1 patch Ondansetron HCl (Zofran Inj) 4 mg IVP Q4H PRN PRN Reason: Nausea/Vomiting Pantoprazole Sodium (Protonix Inj) 40 mg IVP DAILY [facility] Last Admin: 09/22/17 09:54 Dose: 40 mg Quetiapine Fumarate (Seroquel) 25 mg PO HS [facility] Last Admin: 09/21/17 21:41 Dose: Not Given Triamterene/HCTZ (Dyazide 25 Mg-37.5 Mg) 1 cap PO DAILY [facility] Last Admin: 09/22/17 15:06 Dose: 1 cap Zolpidem Tartrate (Ambien) 5 mg PO HS PRN PRN Reason: Insomnia Last Admin: 09/20/17 23:44 Dose: 5 mg - Labs Labs: 09/22/17 08:07 09/22/17 08:07 Attending/Attestation - Attestation I have personally seen and examined this patient.: Yes I have fully participated in the care of the patient.: Yes I have reviewed all pertinent clinical information, including history, physical exam and plan: Yes Notes (Text): Medical attending: Patient was seen and examined by me. Agree with the above note by the resident The patient was in less pain and distress today. I took out the NGT today. He has had several normal BMs he says. He said he felt ready to try CLD. We advised him to do this slowy Also the lipase has decreased as well. Later will need mediport placement as well. We encouraged patient to be out of bed and also to try to ambulate as well thank you Anson Hung
[2017-09-22] MEDS: Vancomycin 1 gm/NS 200 ml 1 GM/200 ML BAG IVPB SCH (14:27)
--- NOTE | 2017-09-22 21:09 | CP.PCM.CON ---
History of Present Illness - History of Present Illness History of Present Illness: Surgery- Dr. Walker Reason for consult: Portacath placement 62M w/ pmhx significant for Lung CA, Kidney CA, HTN, presents to [facility] with abdominal pain, nausea & vomiting, hematochezia prior to arrival. Hospital course, patient was diagnosed w/ pacreatitis and bowel obstruction. Symptoms have significantly improved since arrival. During encounter patient was in good spirits sitting with his family. Tolerating CLD, denies current abdominal pain. Denies: Chest pain, shortness of breath, nausea, vomiting Oncologist: Dr. Neely PMH: Kidney CA, small cell CA of the Lung, HTN PSH: shoulder surgery ALL: PCN SocialHx: smokes 1ppd +35yrs, denies ETOH, recreational drug use Review of Systems - Review of Systems All systems: reviewed and no additional remarkable complaints except - Constitutional Constitutional: As Per HPI Past Patient History - Infectious Disease Hx of Infectious Diseases: None - Past Medical History & Family History Past Medical History?: Yes - Past Social History Smoking Status: Current Some Days Smoker - CARDIAC Hx Hypertension: Yes - PULMONARY Hx Respiratory Disorders: No - NEUROLOGICAL Hx Neurological Disorder: No - HEENT Hx HEENT Problems: No - RENAL Hx Chronic Kidney Disease: No - ENDOCRINE/METABOLIC Hx Endocrine Disorders: No - HEMATOLOGICAL/ONCOLOGICAL Hx Blood Disorders: No Other/Comment: CA to Right kidney stage 4. 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 Had his last chemo yesterday 09/19/17 - INTEGUMENTARY Hx Dermatological Problems: No - MUSCULOSKELETAL/RHEUMATOLOGICAL Hx Arthritis: Yes - GASTROINTESTINAL Hx Gastritis: Yes - GENITOURINARY/GYNECOLOGICAL Hx Genitourinary Disorders: No - PSYCHIATRIC Hx Anxiety: Yes Hx Depression: No Hx Post Traumatic Stress Disorder: No Hx Substance Use: No - SURGICAL HISTORY Hx Surgeries: Yes Hx Arthroscopy: No Hx Open Reduction Internal Fixation: No Hx Orthopedic Surgery: Yes (RIGHT SHOULDER ROTO CUFF) Other/Comment: Back surgery 2016 - ANESTHESIA Hx Anesthesia: Yes Hx Anesthesia Reactions: No Hx Malignant Hyperthermia: No Meds Allergies/Adverse Reactions: Allergies Allergy/AdvReac Type Severity Reaction Status Date / Time Penicillins AdvReac Intermediate DIZZINESS Verified 09/21/17 08:59 - Medications Medications: Current Medications Albuterol/Ipratropium (Duoneb 3 Mg/0.5 Mg (3 Ml) Ud) 3 ml INH RQ4 PRN PRN Reason: Shortness of Breath Dexamethasone (Decadron Inj) 4 mg IVP Q12 [facility] Last Admin: 09/22/17 09:57 Dose: 4 mg Ergocalciferol (Drisdol 50,000 Intl Units Cap) 1 cap PO QWK [facility] Last Admin: 09/21/17 10:08 Dose: 1 cap Famotidine (Pepcid) 20 mg PO BID [facility] Last Admin: 09/22/17 17:42 Dose: 20 mg Vancomycin/Sodium Chloride (Vancomycin 1 Gm/Ns 200 Ml) 1 gm in 200 mls @ 133.333 mls/hr IVPB Q24H [facility] PRN Reason: Protocol Stop: 09/25/17 15:01 Last Admin: 09/22/17 14:27 Dose: 133.333 mls/hr Piperacillin Sod/Tazobactam Sod (Zosyn 3.375 Gm Iv Premix) 3.375 gm in 50 mls @ 100 mls/hr IVPB Q6H [facility] PRN Reason: Protocol Last Admin: 09/22/17 16:23 Dose: 100 mls/hr Sodium Chloride (Sodium Chloride 0.45%) 1,000 mls @ 50 mls/hr IV .Q20H [facility] Last Admin: 09/22/17 12:00 Dose: 50 mls/hr Ketorolac Tromethamine (Toradol) 30 mg IVP Q6 PRN PRN Reason: Pain, severe (8-10) Last Admin: 09/22/17 15:11 Dose: 30 mg Loratadine (Claritin) 10 mg PO HS PRN PRN Reason: Allergy symptoms Nicotine (Nicoderm Cq) 1 patch TD DAILY [facility] Last Admin: 09/22/17 09:52 Dose: 1 patch Ondansetron HCl (Zofran Inj) 4 mg IVP Q4H PRN PRN Reason: Nausea/Vomiting Pantoprazole Sodium (Protonix Inj) 40 mg IVP DAILY [facility] Last Admin: 09/22/17 09:54 Dose: 40 mg Quetiapine Fumarate (Seroquel) 25 mg PO HS [facility] Last Admin: 09/21/17 21:41 Dose: Not Given Triamterene/HCTZ (Dyazide 25 Mg-37.5 Mg) 1 cap PO DAILY [facility] Last Admin: 09/22/17 15:06 Dose: 1 cap Zolpidem Tartrate (Ambien) 5 mg PO HS PRN PRN Reason: Insomnia Last Admin: 09/20/17 23:44 Dose: 5 mg Physical Exam - Constitutional Appears: Non-toxic, No Acute Distress - Head Exam Head Exam: ATRAUMATIC - Eye Exam Eye Exam: EOMI. absent: Scleral icterus - ENT Exam ENT Exam: Mucous Membranes Moist - Respiratory Exam Respiratory Exam: NORMAL BREATHING PATTERN. absent: Accessory Muscle Use, Respiratory Distress - Cardiovascular Exam Cardiovascular Exam: +S1, +S2. absent: Bradycardia, Tachycardia - GI/Abdominal Exam GI & Abdominal Exam: Distended, Soft. absent: Firm, Guarding, Tenderness - Extremities Exam Extremities exam: Positive for: normal inspection. Negative for: calf tenderness - Neurological Exam Neurological exam: Oriented x3 - Psychiatric Exam Psychiatric exam: Normal Affect - Skin Skin Exam: Intact, Warm Results - Vital Signs Recent Vital Signs: Last Vital Signs Temp 98.0 F 09/22/17 16:00 Pulse 74 09/22/17 16:00 Resp 20 09/22/17 16:00 BP 145/85 09/22/17 16:00 Pulse Ox 96 09/22/17 16:00 - Labs Result Diagrams: 09/22/17 08:07 09/22/17 08:07 Labs: Laboratory Results - last 24 hr 09/22/17 09/22/17 08:07 08:07 WBC 13.6 H RBC 4.87 Hgb 13.7 Hct 39.8 MCV 81.7 MCH 28.2 MCHC 34.5 RDW 16.9 H Plt Count 84 L MPV 8.7 Neut % (Auto) 95.3 H Lymph % (Auto) 3.9 L [place] % (Auto) 0.8 Eos % (Auto) 0.0 Baso % (Auto) 0.0 Neut # (Auto) 13.0 H Lymph # (Auto) 0.5 L [place] # (Auto) 0.1 Eos # (Auto) 0.0 Baso # (Auto) 0.0 Neutrophils % (Manual) 94 H Lymphocytes % (Manual) 5 L Monocytes % (Manual) 1 Toxic Granulation Present Platelet Estimate Normal Polychromasia Slight Hypochromasia (manual) Slight Anisocytosis (manual) Slight Sodium 134 Potassium 4.6 Chloride 101 Carbon Dioxide 23 Anion Gap 14 BUN 41 H Creatinine 1.3 Est GFR ( Amer) > 60 Est GFR (Non-Af Amer) 56 Random Glucose 110 Calcium 8.8 Phosphorus 5.9 H Magnesium 2.6 H Total Bilirubin 2.0 H AST 178 H ALT 219 H Alkaline Phosphatase 405 H Total Protein 6.9 Albumin 3.1 L Globulin 3.8 Albumin/Globulin Ratio 0.8 L Lipase 158 Assessment & Plan - Assessment and Plan (Free Text) Assessment: 62 w/ small cell lung CA, and Kidney Ca Plan: - Plan for port Placement on Sunday - NPO Sunday after MN - medical management per primary team - discussed w/ Dr. Walker surgical attending PGY1
--- NOTE | 2017-09-22 21:29 | CP.PCM.PN ---
Subjective - Date & Time of Evaluation Date of Evaluation: 09/22/17 Time of Evaluation: 16:30 - Subjective Subjective: Feeling better, NGT removed. Objective - Vital Signs/Intake and Output Vital Signs (last 24 hours): Temp Pulse Resp BP Pulse Ox 98.0 F 74 20 145/85 96 09/22/17 16:00 09/22/17 16:00 09/22/17 16:00 09/22/17 16:00 09/22/17 16:00 Intake and Output: 09/22/17 09/23/17 18:59 06:59 Intake Total 800 Output Total 1600 Balance -800 - Medications Medications: Current Medications Albuterol/Ipratropium (Duoneb 3 Mg/0.5 Mg (3 Ml) Ud) 3 ml INH RQ4 PRN PRN Reason: Shortness of Breath Dexamethasone (Decadron Inj) 4 mg IVP Q12 [facility] Last Admin: 09/22/17 09:57 Dose: 4 mg Ergocalciferol (Drisdol 50,000 Intl Units Cap) 1 cap PO QWK [facility] Last Admin: 09/21/17 10:08 Dose: 1 cap Famotidine (Pepcid) 20 mg PO BID [facility] Last Admin: 09/22/17 17:42 Dose: 20 mg Vancomycin/Sodium Chloride (Vancomycin 1 Gm/Ns 200 Ml) 1 gm in 200 mls @ 133.333 mls/hr IVPB Q24H [facility] PRN Reason: Protocol Stop: 09/25/17 15:01 Last Admin: 09/22/17 14:27 Dose: 133.333 mls/hr Piperacillin Sod/Tazobactam Sod (Zosyn 3.375 Gm Iv Premix) 3.375 gm in 50 mls @ 100 mls/hr IVPB Q6H [facility] PRN Reason: Protocol Last Admin: 09/22/17 16:23 Dose: 100 mls/hr Sodium Chloride (Sodium Chloride 0.45%) 1,000 mls @ 50 mls/hr IV .Q20H [facility] Last Admin: 09/22/17 12:00 Dose: 50 mls/hr Ketorolac Tromethamine (Toradol) 30 mg IVP Q6 PRN PRN Reason: Pain, severe (8-10) Last Admin: 09/22/17 15:11 Dose: 30 mg Loratadine (Claritin) 10 mg PO HS PRN PRN Reason: Allergy symptoms Nicotine (Nicoderm Cq) 1 patch TD DAILY [facility] Last Admin: 09/22/17 09:52 Dose: 1 patch Ondansetron HCl (Zofran Inj) 4 mg IVP Q4H PRN PRN Reason: Nausea/Vomiting Pantoprazole Sodium (Protonix Inj) 40 mg IVP DAILY [facility] Last Admin: 09/22/17 09:54 Dose: 40 mg Quetiapine Fumarate (Seroquel) 25 mg PO HS [facility] Last Admin: 09/21/17 21:41 Dose: Not Given Triamterene/HCTZ (Dyazide 25 Mg-37.5 Mg) 1 cap PO DAILY [facility] Last Admin: 09/22/17 15:06 Dose: 1 cap Zolpidem Tartrate (Ambien) 5 mg PO HS PRN PRN Reason: Insomnia Last Admin: 09/20/17 23:44 Dose: 5 mg - Labs Labs: 09/22/17 08:07 09/22/17 08:07 - Head Exam Head Exam: ATRAUMATIC - Eye Exam Eye Exam: Normal appearance - ENT Exam ENT Exam: Mucous Membranes Dry - Respiratory Exam Respiratory Exam: NORMAL BREATHING PATTERN - Cardiovascular Exam Cardiovascular Exam: +S1, +S2 - GI/Abdominal Exam GI & Abdominal Exam: Normal Bowel Sounds Assessment and Plan (1) Leukocytosis Assessment & Plan: on antibiotics Status: Acute (2) Thrombocytopenia Assessment & Plan: too soon to be chemotherapy induced cont. to monitor Status: Acute (3) Small cell lung cancer Assessment & Plan: extensive liver metastasis possible brain metastasis; 2mm lesion portacath placement outpatient chemotherapy Status: Acute
[2017-09-23] MEDS: Piperacill/Tazo 3.375gm in Dex 3.375 GM/50 ML BAG IVPB SCH ×4 (03:37→21:34)
--- NOTE | 2017-09-23 07:41 | CP.PCM.PN ---
Addendum entered and electronically signed by Verónica Munguia DO 09/23/17 11:02: Patient was given one dose of Lasix 20 IVP for the SOB. Fluids were discontinued. Original Note: <Verónica Munguia - Last Filed: 09/23/17 10:59> Subjective - Date & Time of Evaluation Date of Evaluation: 09/23/17 Time of Evaluation: 08:00 - Subjective Subjective: PGY [address] Hung: Patient seen and examined at bedside. No acute events overnight. Vitals stable, afebrile. He admits to the same left sided abdominal pain which he said was worse for a few minutes overnight but then was relieved with pain medications. He is having normal bowel movements and has been tolerating full liquid diet without nausea or vomiting. Patient denies fever, chills. After he washed up in the bathroom he was complaining of some shortness of breath. He denies chest pain, dizziness, headaches, or changes in vision. No other complaints at this time. Patient is for port a cath placement tomorrow. Objective - Vital Signs/Intake and Output Vital Signs (last 24 hours): Temp Pulse Resp BP Pulse Ox 97.5 F L 65 20 117/79 98 09/23/17 00:00 09/23/17 00:00 09/23/17 00:00 09/23/17 00:00 09/23/17 00:00 Intake and Output: 09/23/17 09/23/17 06:59 18:59 Intake Total 600 Balance 600 - Medications Medications: Current Medications Albuterol/Ipratropium (Duoneb 3 Mg/0.5 Mg (3 Ml) Ud) 3 ml INH RQ4 PRN PRN Reason: Shortness of Breath Dexamethasone (Decadron Inj) 4 mg IVP Q12 [facility] Last Admin: 09/22/17 22:09 Dose: 4 mg Ergocalciferol (Drisdol 50,000 Intl Units Cap) 1 cap PO QWK [facility] Last Admin: 09/21/17 10:08 Dose: 1 cap Famotidine (Pepcid) 20 mg PO BID [facility] Last Admin: 09/22/17 17:42 Dose: 20 mg Vancomycin/Sodium Chloride (Vancomycin 1 Gm/Ns 200 Ml) 1 gm in 200 mls @ 133.333 mls/hr IVPB Q24H [facility] PRN Reason: Protocol Stop: 09/25/17 15:01 Last Admin: 09/22/17 14:27 Dose: 133.333 mls/hr Piperacillin Sod/Tazobactam Sod (Zosyn 3.375 Gm Iv Premix) 3.375 gm in 50 mls @ 100 mls/hr IVPB Q6H [facility] PRN Reason: Protocol Last Admin: 09/23/17 03:37 Dose: 100 mls/hr Sodium Chloride (Sodium Chloride 0.45%) 1,000 mls @ 50 mls/hr IV .Q20H [facility] Last Admin: 09/22/17 12:00 Dose: 50 mls/hr Ketorolac Tromethamine (Toradol) 30 mg IVP Q6 PRN PRN Reason: Pain, severe (8-10) Last Admin: 09/22/17 22:08 Dose: 30 mg Loratadine (Claritin) 10 mg PO HS PRN PRN Reason: Allergy symptoms Nicotine (Nicoderm Cq) 1 patch TD DAILY [facility] Last Admin: 09/22/17 09:52 Dose: 1 patch Ondansetron HCl (Zofran Inj) 4 mg IVP Q4H PRN PRN Reason: Nausea/Vomiting Pantoprazole Sodium (Protonix Inj) 40 mg IVP DAILY [facility] Last Admin: 09/22/17 09:54 Dose: 40 mg Quetiapine Fumarate (Seroquel) 25 mg PO HS [facility] Last Admin: 09/22/17 22:09 Dose: 25 mg Triamterene/HCTZ (Dyazide 25 Mg-37.5 Mg) 1 cap PO DAILY [facility] Last Admin: 09/22/17 15:06 Dose: 1 cap Zolpidem Tartrate (Ambien) 5 mg PO HS PRN PRN Reason: Insomnia Last Admin: 09/20/17 23:44 Dose: 5 mg - Labs Labs: 09/22/17 08:07 09/22/17 08:07 - Constitutional Appears: Non-toxic, No Acute Distress - Head Exam Head Exam: ATRAUMATIC - Eye Exam Eye Exam: EOMI Pupil Exam: NORMAL ACCOMODATION - ENT Exam ENT Exam: Mucous Membranes Moist - Respiratory Exam Respiratory Exam: Decreased Breath Sounds, NORMAL BREATHING PATTERN. absent: Accessory Muscle Use - GI/Abdominal Exam GI & Abdominal Exam: Soft, Hypoactive Bowel Sounds. absent: Distended, Firm, Guarding, Tenderness - Extremities Exam Extremities Exam: Normal Inspection - Back Exam Back Exam: NORMAL INSPECTION - Neurological Exam Neurological Exam: Alert, Awake, CN II-XII Intact, Oriented x3 - Psychiatric Exam Psychiatric exam: Normal Affect, Normal Mood Assessment and Plan - Assessment and Plan (Free Text) Assessment: Lung CA, small cell carcinoma with mets (liver, brain, kidney) Dr. Neely consulted, help appreciated - Can get outpatient chemotherapy, had already received [address] Walker consulted for port a cath placement tomorrow around noon Duoneb 3ml INH RQ4 PRN Piperacillin/Tazobactam 3.375 gm Q6H Vancomycin 1 gm Q24 Acute Pancreatitis ? secondary to tumor necrosis vs, chemo Pancreatitis noted on CT imaging Lipase downtrending LFTS elevated - likely secondary to mets 1/NS at 50 cc/hour Diet advanced to clear liquids, NG tube removed today Dexamthasone 4 mg PO BID Zofran 4mg IVP Q4H N/V Prochlorperazine 10 mg Q6H Toradol prn pain Dr. Cortés consulted - help appreciated: Leukocytosis afebrile, downtrending On Zosyn and Vanc Thrombocytopenia continue to monitor no anticoagulation will encourage ambulation Hx. Anxiety Seroquel 25mg PO HS Insomnia Ambien 5mg PO HS prn Tobacco use last cigarette was 09/17 Nicotine TD Patch Prophylaxis SCDs Soft diet NPO after midnight <Anson Hung H - Last Filed: 09/23/17 11:35> Objective - Vital Signs/Intake and Output Vital Signs (last 24 hours): Temp Pulse Resp BP Pulse Ox 97.9 F 83 21 123/75 95 09/23/17 10:24 09/23/17 10:24 09/23/17 10:24 09/23/17 10:24 09/23/17 10:24 Intake and Output: 09/23/17 09/23/17 06:59 18:59 Intake Total 600 550 Balance 600 550 - Medications Medications: Current Medications Albuterol/Ipratropium (Duoneb 3 Mg/0.5 Mg (3 Ml) Ud) 3 ml INH RQ4 PRN PRN Reason: Shortness of Breath Dexamethasone (Decadron Inj) 4 mg IVP Q12 [facility] Last Admin: 09/23/17 09:33 Dose: 4 mg Ergocalciferol (Drisdol 50,000 Intl Units Cap) 1 cap PO QWK [facility] Last Admin: 09/21/17 10:08 Dose: 1 cap Famotidine (Pepcid) 20 mg PO BID [facility] Last Admin: 09/23/17 09:32 Dose: 20 mg Vancomycin/Sodium Chloride (Vancomycin 1 Gm/Ns 200 Ml) 1 gm in 200 mls @ 133.333 mls/hr IVPB Q24H [facility] PRN Reason: Protocol Stop: 09/25/17 15:01 Last Admin: 09/22/17 14:27 Dose: 133.333 mls/hr Piperacillin Sod/Tazobactam Sod (Zosyn 3.375 Gm Iv Premix) 3.375 gm in 50 mls @ 100 mls/hr IVPB Q6H [facility] PRN Reason: Protocol Last Admin: 09/23/17 09:33 Dose: 100 mls/hr Ketorolac Tromethamine (Toradol) 30 mg IVP Q6 PRN PRN Reason: Pain, severe (8-10) Last Admin: 09/22/17 22:08 Dose: 30 mg Loratadine (Claritin) 10 mg PO HS PRN PRN Reason: Allergy symptoms Nicotine (Nicoderm Cq) 1 patch TD DAILY [facility] Last Admin: 09/23/17 09:56 Dose: 1 patch Ondansetron HCl (Zofran Inj) 4 mg IVP Q4H PRN PRN Reason: Nausea/Vomiting Pantoprazole Sodium (Protonix Inj) 40 mg IVP DAILY [facility] Last Admin: 09/23/17 09:33 Dose: 40 mg Quetiapine Fumarate (Seroquel) 25 mg PO HS [facility] Last Admin: 09/22/17 22:09 Dose: 25 mg Triamterene/HCTZ (Dyazide 25 Mg-37.5 Mg) 1 cap PO DAILY [facility] Last Admin: 09/23/17 09:32 Dose: 1 cap Zolpidem Tartrate (Ambien) 5 mg PO HS PRN PRN Reason: Insomnia Last Admin: 09/20/17 23:44 Dose: 5 mg - Labs Labs: 09/23/17 08:53 09/23/17 08:53 Attending/Attestation - Attestation I have personally seen and examined this patient.: Yes I have fully participated in the care of the patient.: Yes I have reviewed all pertinent clinical information, including history, physical exam and plan: Yes Notes (Text): Medical attending: Patient was seen and examined by me. Agree with the above note by the resident The patient was less tender and reporting less bloating. He reports the remaining tenderness mostly in lower quadrants. He is actively walking in the room and hallway. He has had a BM earlier today. He described this as normal. We will give lasix x 1, the chest XRAY and our physicial exam seems to indicate some congestion on the R side. (the side with malignancy) thank you Anson Hung
[2017-09-23] MEDS: Sodium Chloride 0.45% 1,000 ML IV SCH (07:51)
--- NOTE | 2017-09-23 09:04 | CP.PCM.PN ---
Subjective - Date & Time of Evaluation Date of Evaluation: 09/23/17 Time of Evaluation: 06:50 - Subjective Subjective: Surgery- Dr. Walker Pt S&E at bedside this AM. No acute events overnight. denies chest pain, shortness of breath, nausea, vomiting, diarrhea. passing flatus. tolerating current diet. Objective - Vital Signs/Intake and Output Vital Signs (last 24 hours): Temp Pulse Resp BP Pulse Ox 97.5 F L 65 20 117/79 98 09/23/17 00:00 09/23/17 00:00 09/23/17 00:00 09/23/17 00:00 09/23/17 00:00 Intake and Output: 09/23/17 09/23/17 06:59 18:59 Intake Total 600 550 Balance 600 550 - Medications Medications: Current Medications Albuterol/Ipratropium (Duoneb 3 Mg/0.5 Mg (3 Ml) Ud) 3 ml INH RQ4 PRN PRN Reason: Shortness of Breath Dexamethasone (Decadron Inj) 4 mg IVP Q12 [facility] Last Admin: 09/22/17 22:09 Dose: 4 mg Ergocalciferol (Drisdol 50,000 Intl Units Cap) 1 cap PO QWK [facility] Last Admin: 09/21/17 10:08 Dose: 1 cap Famotidine (Pepcid) 20 mg PO BID [facility] Last Admin: 09/22/17 17:42 Dose: 20 mg Vancomycin/Sodium Chloride (Vancomycin 1 Gm/Ns 200 Ml) 1 gm in 200 mls @ 133.333 mls/hr IVPB Q24H [facility] PRN Reason: Protocol Stop: 09/25/17 15:01 Last Admin: 09/22/17 14:27 Dose: 133.333 mls/hr Piperacillin Sod/Tazobactam Sod (Zosyn 3.375 Gm Iv Premix) 3.375 gm in 50 mls @ 100 mls/hr IVPB Q6H [facility] PRN Reason: Protocol Last Admin: 09/23/17 03:37 Dose: 100 mls/hr Sodium Chloride (Sodium Chloride 0.45%) 1,000 mls @ 50 mls/hr IV .Q20H [facility] Last Admin: 09/23/17 07:51 Dose: 50 mls/hr Ketorolac Tromethamine (Toradol) 30 mg IVP Q6 PRN PRN Reason: Pain, severe (8-10) Last Admin: 09/22/17 22:08 Dose: 30 mg Loratadine (Claritin) 10 mg PO HS PRN PRN Reason: Allergy symptoms Nicotine (Nicoderm Cq) 1 patch TD DAILY [facility] Last Admin: 09/22/17 09:52 Dose: 1 patch Ondansetron HCl (Zofran Inj) 4 mg IVP Q4H PRN PRN Reason: Nausea/Vomiting Pantoprazole Sodium (Protonix Inj) 40 mg IVP DAILY [facility] Last Admin: 09/22/17 09:54 Dose: 40 mg Quetiapine Fumarate (Seroquel) 25 mg PO HS [facility] Last Admin: 09/22/17 22:09 Dose: 25 mg Triamterene/HCTZ (Dyazide 25 Mg-37.5 Mg) 1 cap PO DAILY [facility] Last Admin: 09/22/17 15:06 Dose: 1 cap Zolpidem Tartrate (Ambien) 5 mg PO HS PRN PRN Reason: Insomnia Last Admin: 09/20/17 23:44 Dose: 5 mg - Labs Labs: 09/22/17 08:07 09/22/17 08:07 - Constitutional Appears: Non-toxic, No Acute Distress - Head Exam Head Exam: ATRAUMATIC - Eye Exam Eye Exam: EOMI - ENT Exam ENT Exam: Mucous Membranes Moist - Respiratory Exam Respiratory Exam: NORMAL BREATHING PATTERN. absent: Accessory Muscle Use, Respiratory Distress - Cardiovascular Exam Cardiovascular Exam: +S1, +S2. absent: Bradycardia, Tachycardia - GI/Abdominal Exam GI & Abdominal Exam: Distended, Soft. absent: Firm, Guarding, Rigid, Tenderness - Neurological Exam Neurological Exam: Alert, Awake, Oriented x3 - Psychiatric Exam Psychiatric exam: Normal Affect - Skin Skin Exam: Intact, Warm Assessment and Plan - Assessment and Plan (Free Text) Assessment: 62 w/ small cell lung CA, and Kidney Ca Plan: - Plan for port Placement on Sunday - NPO Sunday after MN - medical management per primary team - discussed w/ Dr. Walker surgical attending PGY1
[2017-09-23 09:10] LABS: BASO % 0.1 % (0.0-2.0); HEMOGLOBIN 13.2 g/dL (12.0-18.0); LYMPH # 0.5 K/uL (1.0-4.3); LYMPH % 4.3 % (20.0-40.0); MEAN CELL VOLUME 82.1 fL (80.0-94.0); MEAN CORPUSCULAR HEMOGLOBIN 27.8 pg (27.0-31.0); MEAN CORPUSCULAR HGB CONC 33.8 g/dL (33.0-37.0); MEAN PLATELET VOLUME 8.7 fL (7.2-11.7); MONO # 0.1 K/uL (0.0-0.8); MONO % 0.6 % (0.0-10.0); NEUT # 10.6 K/uL (1.8-7.0); PLATELET COUNT 105 K/uL (130-400); RBC 4.76 Mil/uL (4.40-5.90); RED CELL DISTRIBUTION WIDTH 16.9 % (11.5-14.5); WHITE BLOOD COUNT 11.1 K/uL (4.8-10.8)
[2017-09-23] MEDS: hydroCHLOROthiazide-Triamterene 25 mg-37.5 mg Cap UD PO SCH (09:32)
[2017-09-23] MEDS: Dexamethasone 4 mg/1 ml IVP SCH ×2 (09:33→21:34)
[2017-09-23 09:34] LABS: ALB/GLOB RATIO 0.9 (1.0-2.1); ALBUMIN 3.2 g/dL (3.5-5.0); ALT/SGPT 192 U/L (21-72); AST/SGOT 146 U/L (17-59); BLOOD UREA NITROGEN 42 mg/dL (9-20); CALCIUM 8.5 mg/dl (8.6-10.4); GFR AFRICAN-AMERICAN > 60; GFR NON-AFRICAN AMERICAN 56
--- NOTE | 2017-09-23 10:18 | CP.PCM.PN ---
Subjective - Date & Time of Evaluation Date of Evaluation: 09/22/17 Time of Evaluation: 09:30 - Subjective Subjective: Patient was seen 09/22/17. Note was written, but is not found. This is note for 09/22/17. Reports less abdom pain. Less SOB. Denies fever, chills, SZ, loc, AMEZQUITA, cough, hematuria, hemoptysis Objective - Vital Signs/Intake and Output Vital Signs (last 24 hours): Temp Pulse Resp BP Pulse Ox 97.5 F L 65 20 117/79 98 09/23/17 00:00 09/23/17 00:00 09/23/17 00:00 09/23/17 00:00 09/23/17 00:00 Intake and Output: 09/23/17 09/23/17 06:59 18:59 Intake Total 600 550 Balance 600 550 - Medications Medications: Current Medications Albuterol/Ipratropium (Duoneb 3 Mg/0.5 Mg (3 Ml) Ud) 3 ml INH RQ4 PRN PRN Reason: Shortness of Breath Dexamethasone (Decadron Inj) 4 mg IVP Q12 [facility] Last Admin: 09/23/17 09:33 Dose: 4 mg Ergocalciferol (Drisdol 50,000 Intl Units Cap) 1 cap PO QWK [facility] Last Admin: 09/21/17 10:08 Dose: 1 cap Famotidine (Pepcid) 20 mg PO BID [facility] Last Admin: 09/23/17 09:32 Dose: 20 mg Vancomycin/Sodium Chloride (Vancomycin 1 Gm/Ns 200 Ml) 1 gm in 200 mls @ 133.333 mls/hr IVPB Q24H [facility] PRN Reason: Protocol Stop: 09/25/17 15:01 Last Admin: 09/22/17 14:27 Dose: 133.333 mls/hr Piperacillin Sod/Tazobactam Sod (Zosyn 3.375 Gm Iv Premix) 3.375 gm in 50 mls @ 100 mls/hr IVPB Q6H [facility] PRN Reason: Protocol Last Admin: 09/23/17 09:33 Dose: 100 mls/hr Sodium Chloride (Sodium Chloride 0.45%) 1,000 mls @ 50 mls/hr IV .Q20H [facility] Last Admin: 09/23/17 07:51 Dose: 50 mls/hr Ketorolac Tromethamine (Toradol) 30 mg IVP Q6 PRN PRN Reason: Pain, severe (8-10) Last Admin: 09/22/17 22:08 Dose: 30 mg Loratadine (Claritin) 10 mg PO HS PRN PRN Reason: Allergy symptoms Nicotine (Nicoderm Cq) 1 patch TD DAILY [facility] Last Admin: 09/23/17 09:56 Dose: 1 patch Ondansetron HCl (Zofran Inj) 4 mg IVP Q4H PRN PRN Reason: Nausea/Vomiting Pantoprazole Sodium (Protonix Inj) 40 mg IVP DAILY [facility] Last Admin: 09/23/17 09:33 Dose: 40 mg Quetiapine Fumarate (Seroquel) 25 mg PO HS [facility] Last Admin: 09/22/17 22:09 Dose: 25 mg Triamterene/HCTZ (Dyazide 25 Mg-37.5 Mg) 1 cap PO DAILY [facility] Last Admin: 09/23/17 09:32 Dose: 1 cap Zolpidem Tartrate (Ambien) 5 mg PO HS PRN PRN Reason: Insomnia Last Admin: 09/20/17 23:44 Dose: 5 mg - Labs Labs: 09/23/17 08:53 09/23/17 08:53 - Constitutional Appears: Non-toxic - Respiratory Exam Respiratory Exam: Rhonchi - Cardiovascular Exam Cardiovascular Exam: RRR - GI/Abdominal Exam GI & Abdominal Exam: Soft, Tenderness, Normal Bowel Sounds. absent: Guarding, Mass, Rebound - Neurological Exam Neurological Exam: Alert, Oriented x3 Assessment and Plan (1) HTN (hypertension) Status: Acute (2) Renal metastasis Status: Acute (3) Liver metastases Status: Acute (4) Abnormal LFTs Assessment & Plan: Improving. Liver mets. Pancreatitis. Status: Acute (5) Abdominal pain Assessment & Plan: Epig pain- pancreatitis pain- better. Reports LLQ and LMq pain- consider due to mets. Status: Acute (6) Metastatic cancer Status: Acute (7) Pancreatitis Assessment & Plan: Improving.. COntinue fluids. Status: Acute (8) Leukocytosis Assessment & Plan: Improving. Status: Acute (9) Lung mass Status: Acute
--- NOTE | 2017-09-23 10:22 | CP.PCM.PN ---
Subjective - Date & Time of Evaluation Date of Evaluation: 09/23/17 Time of Evaluation: 10:20 - Subjective Subjective: F/U abdom pain. Reports no epig pain. + LL and LMQ pain- sharp and occ severe,. Reports SOB Denies fever, chills, SZ, LOC, AMEZQUITA, cough, RB, melena, hematuria, hemoptysis Objective - Vital Signs/Intake and Output Vital Signs (last 24 hours): Temp Pulse Resp BP Pulse Ox 97.5 F L 65 20 117/79 98 09/23/17 00:00 09/23/17 00:00 09/23/17 00:00 09/23/17 00:00 09/23/17 00:00 Intake and Output: 09/23/17 09/23/17 06:59 18:59 Intake Total 600 550 Balance 600 550 - Medications Medications: Current Medications Albuterol/Ipratropium (Duoneb 3 Mg/0.5 Mg (3 Ml) Ud) 3 ml INH RQ4 PRN PRN Reason: Shortness of Breath Dexamethasone (Decadron Inj) 4 mg IVP Q12 [facility] Last Admin: 09/23/17 09:33 Dose: 4 mg Ergocalciferol (Drisdol 50,000 Intl Units Cap) 1 cap PO QWK [facility] Last Admin: 09/21/17 10:08 Dose: 1 cap Famotidine (Pepcid) 20 mg PO BID [facility] Last Admin: 09/23/17 09:32 Dose: 20 mg Vancomycin/Sodium Chloride (Vancomycin 1 Gm/Ns 200 Ml) 1 gm in 200 mls @ 133.333 mls/hr IVPB Q24H [facility] PRN Reason: Protocol Stop: 09/25/17 15:01 Last Admin: 09/22/17 14:27 Dose: 133.333 mls/hr Piperacillin Sod/Tazobactam Sod (Zosyn 3.375 Gm Iv Premix) 3.375 gm in 50 mls @ 100 mls/hr IVPB Q6H [facility] PRN Reason: Protocol Last Admin: 09/23/17 09:33 Dose: 100 mls/hr Sodium Chloride (Sodium Chloride 0.45%) 1,000 mls @ 50 mls/hr IV .Q20H [facility] Last Admin: 09/23/17 07:51 Dose: 50 mls/hr Ketorolac Tromethamine (Toradol) 30 mg IVP Q6 PRN PRN Reason: Pain, severe (8-10) Last Admin: 09/22/17 22:08 Dose: 30 mg Loratadine (Claritin) 10 mg PO HS PRN PRN Reason: Allergy symptoms Nicotine (Nicoderm Cq) 1 patch TD DAILY [facility] Last Admin: 09/23/17 09:56 Dose: 1 patch Ondansetron HCl (Zofran Inj) 4 mg IVP Q4H PRN PRN Reason: Nausea/Vomiting Pantoprazole Sodium (Protonix Inj) 40 mg IVP DAILY [facility] Last Admin: 09/23/17 09:33 Dose: 40 mg Quetiapine Fumarate (Seroquel) 25 mg PO HS [facility] Last Admin: 09/22/17 22:09 Dose: 25 mg Triamterene/HCTZ (Dyazide 25 Mg-37.5 Mg) 1 cap PO DAILY [facility] Last Admin: 09/23/17 09:32 Dose: 1 cap Zolpidem Tartrate (Ambien) 5 mg PO HS PRN PRN Reason: Insomnia Last Admin: 09/20/17 23:44 Dose: 5 mg - Labs Labs: 09/23/17 08:53 09/23/17 08:53 - Constitutional Appears: Non-toxic - Respiratory Exam Respiratory Exam: Clear to Ausculation Bilateral - Cardiovascular Exam Cardiovascular Exam: RRR - GI/Abdominal Exam GI & Abdominal Exam: Soft, Tenderness, Normal Bowel Sounds. absent: Guarding, Mass, Rebound - Extremities Exam Extremities Exam: absent: Pedal Edema - Neurological Exam Neurological Exam: Alert, Awake, Oriented x3 Assessment and Plan (1) HTN (hypertension) Status: Acute (2) Renal metastasis Status: Acute (3) Liver metastases Status: Acute (4) Abnormal LFTs Assessment & Plan: Liver mets. Status: Acute (5) Abdominal pain Assessment & Plan: Pancreatitis- improving. LLQ pain- likely due to metastatic dis. Status: Acute (6) Metastatic cancer Status: Acute (7) Pancreatitis Assessment & Plan: Improving. Continue IV fluids. Elev BUN. Status: Acute (8) Leukocytosis Assessment & Plan: Improving. Status: Acute (9) Lung mass Status: Acute
[2017-09-23 10:28] LABS: LYMPHOCYTE 4 % (20-40); MONOCYTE 1 % (0-10); NEUTROPHIL 95 % (50-75); TOTAL CELLS COUNTED 100
[2017-09-23 10:29] LABS: ANISOCYTOSIS SLIGHT; PLATELET ESTIMATE SLIGHTLY DECREASED (NORMAL)
[2017-09-23] MEDS: Vancomycin 1 gm/NS 200 ml 1 GM/200 ML BAG IVPB SCH (14:00)
[2017-09-24] MEDS: Piperacill/Tazo 3.375gm in Dex 3.375 GM/50 ML BAG IVPB SCH ×4 (04:21→22:11)
[2017-09-24 07:56] LABS: BASO % 0.4 % (0.0-2.0); EOS % 0.5 % (0.0-4.0); HEMOGLOBIN 12.8 g/dL (12.0-18.0); LYMPH # 1.3 K/uL (1.0-4.3); LYMPH % 15.4 % (20.0-40.0); MEAN CELL VOLUME 80.4 fL (80.0-94.0); MEAN CORPUSCULAR HEMOGLOBIN 28.1 pg (27.0-31.0); MEAN PLATELET VOLUME 7.9 fL (7.2-11.7); MONO # 0.1 K/uL (0.0-0.8); NEUT % 82.7 % (50.0-75.0); RBC 4.56 Mil/uL (4.40-5.90); RED CELL DISTRIBUTION WIDTH 16.4 % (11.5-14.5); WHITE BLOOD COUNT 8.4 K/uL (4.8-10.8)
[2017-09-24 08:14] LABS: ALB/GLOB RATIO 0.9 (1.0-2.1); ALBUMIN 3.1 g/dL (3.5-5.0); ALT/SGPT 175 U/L (21-72); AST/SGOT 126 U/L (17-59); BLOOD UREA NITROGEN 45 mg/dL (9-20); CALCIUM 8.5 mg/dl (8.6-10.4); GFR AFRICAN-AMERICAN > 60; GFR NON-AFRICAN AMERICAN 51
[2017-09-24 08:21] LABS: INR 1.1; PROTHROMBIN TIME 12.1 SECONDS (9.7-12.2)
[2017-09-24] MEDS: Dexamethasone 4 mg/1 ml IVP SCH ×2 (10:34→22:10)
[2017-09-24] MEDS: hydroCHLOROthiazide-Triamterene 25 mg-37.5 mg Cap UD PO SCH (10:34)
[2017-09-24] MEDS ORDERED: Lidocaine Hydrochloride 10 ML INJ ONE (16:06)
[2017-09-24] MEDS ORDERED: HEPARIN-NS 5,000 UNITS/500 ML 5,000 UNIT/500 ML BAG IV ONE (16:06)
[2017-09-24] MEDS ORDERED: Propofol 10 mg/ml Inj (20 ML) ONE ×3 (16:07→17:36)
[2017-09-24] MEDS ORDERED: Midazolam 2 MG/2 ML VIAL ONE (16:07)
[2017-09-24] MEDS ORDERED: HYDROmorphone 0.5 mg/0.5 ml ISec IVP PRN (16:48)
--- NOTE | 2017-09-24 18:05 | PCM.SURG1 ---
Surgeon's Initial Post Op Note - Surgeon's Notes Surgeon: Dr. Walker Route Driver [employer]: PGY1 Type of Anesthesia: IV Sedation Pre-Operative Diagnosis: Central venous access Required Operative Findings: Vein identfied via US guidance and confirmed location via flouroscopy. For details see op note Post-Operative Diagnosis: as above Operation Performed: Portacath placement w/ US guidance and Flouroscopy Specimen/Specimens Removed: none Estimated Blood Loss: EBL {In ML}: 15 Drains Used: No Drains Date of Surgery/Procedure: 09/24/17 Time of Surgery/Procedure: 18:05
--- NOTE | 2017-09-24 19:00 | CP.PCM.PN ---
Subjective - Date & Time of Evaluation Date of Evaluation: 09/24/17 Time of Evaluation: 09:00 - Subjective Subjective: Medicine Note for Hospitalist Service- Dr. Gale Patient was seen and examined at bedside. Patient reports his abdominal pain has subsided. Pending portacath placement. Denied fever, chills, headaches, chest pain, shortness of breath, abdominal pain, n/v/d/c, or urinary symptoms. Objective - Vital Signs/Intake and Output Vital Signs (last 24 hours): Temp Pulse Resp BP Pulse Ox 97.9 F 62 10 L 128/82 95 09/24/17 18:00 09/24/17 18:30 09/24/17 18:30 09/24/17 18:30 09/24/17 18:30 Intake and Output: 09/24/17 09/24/17 06:59 18:59 Intake Total 600 50 Balance 600 50 - Medications Medications: Current Medications Albuterol/Ipratropium (Duoneb 3 Mg/0.5 Mg (3 Ml) Ud) 3 ml INH RQ4 PRN PRN Reason: Shortness of Breath Dexamethasone (Decadron Inj) 4 mg IVP Q12 [facility] Last Admin: 09/24/17 10:34 Dose: 4 mg Ergocalciferol (Drisdol 50,000 Intl Units Cap) 1 cap PO QWK [facility] Last Admin: 09/21/17 10:08 Dose: 1 cap Famotidine (Pepcid) 20 mg PO BID [facility] Last Admin: 09/24/17 10:34 Dose: 20 mg Piperacillin Sod/Tazobactam Sod (Zosyn 3.375 Gm Iv Premix) 3.375 gm in 50 mls @ 100 mls/hr IVPB Q6H [facility] PRN Reason: Protocol Last Admin: 09/24/17 15:56 Dose: Not Given Ketorolac Tromethamine (Toradol) 30 mg IVP Q6 PRN PRN Reason: Pain, severe (8-10) Last Admin: 09/23/17 17:24 Dose: 30 mg Loratadine (Claritin) 10 mg PO HS PRN PRN Reason: Allergy symptoms Last Admin: 09/23/17 21:34 Dose: 10 mg Nicotine (Nicoderm Cq) 1 patch TD DAILY [facility] Last Admin: 09/24/17 10:34 Dose: 1 patch Ondansetron HCl (Zofran Inj) 4 mg IVP Q4H PRN PRN Reason: Nausea/Vomiting Quetiapine Fumarate (Seroquel) 25 mg PO HS [facility] Last Admin: 09/23/17 21:34 Dose: 25 mg Triamterene/HCTZ (Dyazide 25 Mg-37.5 Mg) 1 cap PO DAILY [facility] Last Admin: 09/24/17 10:34 Dose: 1 cap Zolpidem Tartrate (Ambien) 5 mg PO HS PRN PRN Reason: Insomnia Last Admin: 09/23/17 21:34 Dose: 5 mg - Labs Labs: 09/24/17 07:42 09/24/17 07:42 PT 12.1 SECONDS (9.7-12.2) 09/24/17 07:42 INR 1.1 09/24/17 07:42 APTT 23 SECONDS (21-34) 09/24/17 07:42 - Additional Findings Additional findings: - Constitutional Appears: Non-toxic, No Acute Distress - Head Exam Head Exam: ATRAUMATIC - Eye Exam Eye Exam: EOMI Pupil Exam: NORMAL ACCOMODATION - ENT Exam ENT Exam: Mucous Membranes Moist - Respiratory Exam Respiratory Exam: Decreased Breath Sounds, NORMAL BREATHING PATTERN. absent: Accessory Muscle Use - GI/Abdominal Exam GI & Abdominal Exam: Soft, Hypoactive Bowel Sounds. absent: Distended, Firm, Guarding, Tenderness - Extremities Exam Extremities Exam: Normal Inspection - Back Exam Back Exam: NORMAL INSPECTION - Neurological Exam Neurological Exam: Alert, Awake, CN II-XII Intact, Oriented x3 - Psychiatric Exam Psychiatric exam: Normal Affect, Normal Mood Assessment and Plan - Assessment and Plan (Free Text) Plan: Lung CA, small cell carcinoma with mets (liver, brain, kidney) Dr. Neely consulted, help appreciated - Can get outpatient chemotherapy, had already received [address] Walker consulted for port a cath placement 09/24 Right sided placed Acute Pancreatitis - -> RESOLVED Dr. Cortés consulted - help appreciated ? secondary to tumor necrosis vs, chemo Pancreatitis noted on CT imaging Lipase downtrending LFTS elevated - likely secondary to mets Dexamthasone 4 mg IVP BID Zofran 4mg IVP Q4H N/V Prochlorperazine 10 mg Q6H Leukocytosis --- > RESOLVED afebrile, downtrending Piperacillin/Tazobactam 3.375 gm Q6H - no antibiotics needed on discharge Thrombocytopenia continue to monitor no anticoagulation will encourage ambulation Hx. Anxiety Seroquel 25mg PO HS Insomnia Ambien 5mg PO HS prn Tobacco use last cigarette was 09/17 Nicotine TD Patch Duoneb 3ml INH RQ4 PRN Prophylaxis SCDs Disposition: Anticipate discharge tomorrow. LANCE Gale, Becka Ta DO, PGY-1
[2017-09-25 00:24] VITALS: BP 103/68; PULSE 71; RESP 20; TEMP 97.6; O2SAT 96
[2017-09-25] MEDS: Piperacill/Tazo 3.375gm in Dex 3.375 GM/50 ML BAG IVPB SCH (04:43)
--- NOTE | 2017-09-25 05:29 | OP ---
PROCEDURE DATE: 09/24/2017 PREOPERATIVE DIAGNOSIS: Lack of venous access, lung cancer. POSTOPERATIVE DIAGNOSIS: Lack of venous access, lung cancer. PROCEDURES: Placement of Port-A-Cath PowerPort type right jugular vein with C-arm fluoroscopy, ultrasound guided puncture, micropuncture technique. SURGEON: Reza Walker Jr., MD. BEADING MACHINE OPERATOR: Dr. Tucker. ANESTHESIOLOGIST: Dr. Quintana. INDICATIONS: The patient is a 62-year-old man recently diagnosed with malignancy who has a port for chemotherapy. OPERATIVE FINDINGS: Catheter was inserted uneventfully. DESCRIPTION OF PROCEDURE: The patient was given local anesthesia using ultrasound guidance and micropuncture technique. The right side of the vein was cannulated. Under fluoroscopic control, guidewire was advanced centrally. A sheath dilator was passed over this and the catheter was positioned with the tip in superior vena cava, it was flushed with heparinized saline with good return and good inflow. Procedure was then terminated. Blood loss of the procedure was 20 mL. Operation carried out, Port-A-Cath, right jugular vein. Port-A-Cath originated on the right chest wall, went through the right jugular vein into the superior vena cava. Reza Walker Jr., MD
--- NOTE | 2017-09-25 07:48 | CP.PCM.PN ---
Subjective - Date & Time of Evaluation Date of Evaluation: 09/25/17 Time of Evaluation: 06:40 - Subjective Subjective: Vascular Surgery- Dr. Walker Patient seen and examined at bedside this AM. No acute events overnight. Patient minimal discomfort around incision site. has appetite. Denies Fevers, chills, chest pain, shortness of breath, nausea, vomiting, diarrhea Objective - Vital Signs/Intake and Output Vital Signs (last 24 hours): Temp Pulse Resp BP Pulse Ox 97.6 F 71 20 103/68 96 09/25/17 00:22 09/25/17 00:22 09/25/17 00:22 09/25/17 00:22 09/25/17 00:22 Intake and Output: 09/25/17 09/25/17 06:59 18:59 Intake Total 700 Balance 700 - Medications Medications: Current Medications Albuterol/Ipratropium (Duoneb 3 Mg/0.5 Mg (3 Ml) Ud) 3 ml INH RQ4 PRN PRN Reason: Shortness of Breath Dexamethasone (Decadron Inj) 4 mg IVP Q12 [facility] Last Admin: 09/24/17 22:10 Dose: 4 mg Enoxaparin Sodium (Lovenox) 40 mg SC DAILY [facility] Ergocalciferol (Drisdol 50,000 Intl Units Cap) 1 cap PO QWK [facility] Last Admin: 09/21/17 10:08 Dose: 1 cap Famotidine (Pepcid) 20 mg PO BID [facility] Last Admin: 09/24/17 19:23 Dose: 20 mg Piperacillin Sod/Tazobactam (Sod 3.375 gm/ Sodium Chloride) 100 mls @ 100 mls/ hr IVPB Q6H [facility] PRN Reason: Protocol Loratadine (Claritin) 10 mg PO HS PRN PRN Reason: Allergy symptoms Last Admin: 09/24/17 22:22 Dose: 10 mg Nicotine (Nicoderm Cq) 1 patch TD DAILY [facility] Last Admin: 09/24/17 10:34 Dose: 1 patch Ondansetron HCl (Zofran Inj) 4 mg IVP Q4H PRN PRN Reason: Nausea/Vomiting Quetiapine Fumarate (Seroquel) 25 mg PO HS [facility] Last Admin: 09/24/17 22:11 Dose: 25 mg Triamterene/HCTZ (Dyazide 25 Mg-37.5 Mg) 1 cap PO DAILY [facility] Last Admin: 09/24/17 10:34 Dose: 1 cap Zolpidem Tartrate (Ambien) 5 mg PO HS PRN PRN Reason: Insomnia Last Admin: 09/23/17 21:34 Dose: 5 mg - Labs Labs: 09/24/17 07:42 09/24/17 07:42 PT 12.1 SECONDS (9.7-12.2) 09/24/17 07:42 INR 1.1 09/24/17 07:42 APTT 23 SECONDS (21-34) 09/24/17 07:42 - Constitutional Appears: Non-toxic, No Acute Distress - Head Exam Head Exam: ATRAUMATIC - Eye Exam Eye Exam: EOMI. absent: Scleral icterus - ENT Exam Additional comments: Neck dressing C/D/I. no signs of hematoma - Respiratory Exam Respiratory Exam: NORMAL BREATHING PATTERN. absent: Accessory Muscle Use, Respiratory Distress - Cardiovascular Exam Cardiovascular Exam: +S1, +S2. absent: Bradycardia, Tachycardia - GI/Abdominal Exam GI & Abdominal Exam: Soft. absent: Distended, Firm, Guarding, Rigid, Tenderness - Neurological Exam Neurological Exam: Alert, Awake, Oriented x3 - Psychiatric Exam Psychiatric exam: Normal Affect - Skin Skin Exam: Intact, Warm Assessment and Plan - Assessment and Plan (Free Text) Assessment: 62M s/p portacath placement Plan: - incision C/D/I - OK to use - can shower anytime - no further surgical intervention at this time [email or web address]
[2017-09-25 07:55] LABS: BASO % 0.1 % (0.0-2.0); EOS % 0.3 % (0.0-4.0); LYMPH % 18.8 % (20.0-40.0); MEAN CELL VOLUME 81.4 fL (80.0-94.0); MEAN CORPUSCULAR HEMOGLOBIN 28.2 pg (27.0-31.0); MEAN CORPUSCULAR HGB CONC 34.6 g/dL (33.0-37.0); MEAN PLATELET VOLUME 7.9 fL (7.2-11.7); MONO # 0.1 K/uL (0.0-0.8); NEUT # 4.2 K/uL (1.8-7.0); NEUT % 78.8 % (50.0-75.0); NRBC % 0.1 % (0.0-2.0); RBC 4.61 Mil/uL (4.40-5.90); RED CELL DISTRIBUTION WIDTH 16.7 % (11.5-14.5); WHITE BLOOD COUNT 5.3 K/uL (4.8-10.8)
[2017-09-25 08:14] LABS: ALB/GLOB RATIO 0.9 (1.0-2.1); ALBUMIN 3.2 g/dL (3.5-5.0); ALT/SGPT 183 U/L (21-72); AST/SGOT 127 U/L (17-59); BLOOD UREA NITROGEN 40 mg/dL (9-20); CALCIUM 8.4 mg/dl (8.6-10.4); GFR AFRICAN-AMERICAN > 60; GFR NON-AFRICAN AMERICAN > 60
--- NOTE | 2017-09-25 08:26 | CP.PCM.PN ---
Subjective - Date & Time of Evaluation Date of Evaluation: 09/25/17 Time of Evaluation: 08:24 - Subjective Subjective: f/u abdom pain. less abd p Denies fever, chills SZ, CP, Sepulved[place], RB, melena, constip, diarrh Objective - Vital Signs/Intake and Output Vital Signs (last 24 hours): Temp Pulse Resp BP Pulse Ox 97.6 F 71 20 103/68 96 09/25/17 00:22 09/25/17 00:22 09/25/17 00:22 09/25/17 00:22 09/25/17 00:22 Intake and Output: 09/25/17 09/25/17 06:59 18:59 Intake Total 700 Balance 700 - Medications Medications: Current Medications Albuterol/Ipratropium (Duoneb 3 Mg/0.5 Mg (3 Ml) Ud) 3 ml INH RQ4 PRN PRN Reason: Shortness of Breath Dexamethasone (Decadron Inj) 4 mg IVP Q12 [facility] Last Admin: 09/24/17 22:10 Dose: 4 mg Enoxaparin Sodium (Lovenox) 40 mg SC DAILY [facility] Ergocalciferol (Drisdol 50,000 Intl Units Cap) 1 cap PO QWK [facility] Last Admin: 09/21/17 10:08 Dose: 1 cap Famotidine (Pepcid) 20 mg PO BID [facility] Last Admin: 09/24/17 19:23 Dose: 20 mg Piperacillin Sod/Tazobactam (Sod 3.375 gm/ Sodium Chloride) 100 mls @ 100 mls/ hr IVPB Q6H [facility] PRN Reason: Protocol Loratadine (Claritin) 10 mg PO HS PRN PRN Reason: Allergy symptoms Last Admin: 09/24/17 22:22 Dose: 10 mg Nicotine (Nicoderm Cq) 1 patch TD DAILY [facility] Last Admin: 09/24/17 10:34 Dose: 1 patch Ondansetron HCl (Zofran Inj) 4 mg IVP Q4H PRN PRN Reason: Nausea/Vomiting Quetiapine Fumarate (Seroquel) 25 mg PO HS [facility] Last Admin: 09/24/17 22:11 Dose: 25 mg Triamterene/HCTZ (Dyazide 25 Mg-37.5 Mg) 1 cap PO DAILY [facility] Last Admin: 09/24/17 10:34 Dose: 1 cap Zolpidem Tartrate (Ambien) 5 mg PO HS PRN PRN Reason: Insomnia Last Admin: 09/23/17 21:34 Dose: 5 mg - Labs Labs: 09/25/17 07:27 09/25/17 07:27 PT 12.1 SECONDS (9.7-12.2) 09/24/17 07:42 INR 1.1 09/24/17 07:42 APTT 26 SECONDS (21-34) 09/25/17 07:27 - Constitutional Appears: Non-toxic - Respiratory Exam Respiratory Exam: Rhonchi - Cardiovascular Exam Cardiovascular Exam: RRR - GI/Abdominal Exam GI & Abdominal Exam: Soft, Normal Bowel Sounds. absent: Guarding, Mass, Rebound - Extremities Exam Extremities Exam: absent: Pedal Edema - Neurological Exam Neurological Exam: Alert, Oriented x3 Assessment and Plan (1) HTN (hypertension) Status: Acute (2) Renal metastasis Status: Acute (3) Liver metastases Status: Acute (4) Abnormal LFTs Assessment & Plan: improving. Liver mets Status: Acute (5) Abdominal pain Status: Acute (6) Metastatic cancer Status: Acute (7) Pancreatitis Assessment & Plan: Improving. Advance to reg diet Status: Acute (8) Leukocytosis Status: Acute (9) Lung mass Status: Acute
[2017-09-25] MEDS ORDERED: Enoxaparin 40 mg Syringe SC SCH (10:00)
[2017-09-25] MEDS: Dexamethasone 4 mg/1 ml IVP SCH (10:07)
[2017-09-25] MEDS: hydroCHLOROthiazide-Triamterene 25 mg-37.5 mg Cap UD PO SCH (10:09)
--- NOTE | 2017-09-25 10:29 | CP.PCM.DIS ---
Provider - Provider Date of Admission: 09/20/17 14:49 Attending physician: Juan Carlos Gale MD Time Spent in preparation of Discharge (in minutes): 55 Hospital Course - Lab Results Lab Results: Micro Results 09/20/17 20:40 Blood Blood Culture - Preliminary NO GROWTH AFTER 4 DAYS 09/20/17 20:10 Blood Blood Culture - Preliminary NO GROWTH AFTER 4 DAYS Most Recent Lab Values WBC 5.3 K/uL (4.8-10.8) 09/25/17 07: RBC 4.61 Mil/uL (4.40-5.90) 09/25/17 07:27 Hgb 13.0 g/dL (12.0-18.0) 09/25/17: Hct 37.5 % (35.0-51.0) 09/25/17 07: MCV 81.4 fL (80.0-94.0) 09/25/17 07: MCH 28.2 pg (27.0-31.0) 09/25/17 07: MCHC 34.6 g/dL (33.0-37.0) 09/25/17 07: RDW 16.7 % (11.5-14.5) H 09/25/17 07:27 Plt Count 89 K/uL (130-400) L 09/25/17 07: MPV 7.9 fL (7.2-11.7) 09/25/17 07: Neut % (Auto) 78.8 % (50.0-75.0) H 09/25/17: Lymph % (Auto) 18.8 % (20.0-40.0) L 09/25/17 07: [place] % (Auto) 2.0 % (0.0-10.0) 09/25/17 07: Eos % (Auto) 0.3 % (0.0-4.0) 09/25/17: Baso % (Auto) 0.1 % (0.0-2.0) 09/25/17 07:27 Neut # (Auto) 4.2 K/uL (1.8-7.0) 09/25/17 07: Lymph # (Auto) 1.0 K/uL (1.0-4.3) 09/25/17 07:27 [place] # (Auto) 0.1 K/uL (0.0-0.8) 09/25/17 07:27 Eos # (Auto) 0.0 K/uL (0.0-0.7) 09/25/17 07:27 Baso # (Auto) 0.0 K/uL (0.0-0.2) 09/25/17 07:27 Neutrophils % (Manual) 95 % (50-75) H 09/23/17 08:53 Band Neutrophils % 5 % (0-2) H 09/21/17 08:08 Lymphocytes % (Manual) 4 % (20-40) L 09/23/17 08:53 Monocytes % (Manual) 1 % (0-10) 09/23/17 08:53 Toxic Granulation Present 09/22/17 08:07 Platelet Estimate Slightly decreased (NORMAL) L 09/23/17 08:53 Giant Platelets Present 09/21/17 08:08 Polychromasia Slight 09/22/17 08:07 Hypochromasia (manual) Slight 09/22/17 08:07 Anisocytosis (manual) Slight 09/23/17 08:53 PT 12.1 SECONDS (9.7-12.2) 09/24/17 07:42 INR 1.1 09/24/17 07:42 APTT 26 SECONDS (21-34) 09/25/17 07:27 Sodium 132 mmol/L (132-148) 09/25/17 07:27 Potassium 4.5 mmol/L (3.6-5.2) 09/25/17 07:27 Chloride 100 mmol/L (98-107) 09/25/17 07:27 Carbon Dioxide 24 mmol/L (22-30) 09/25/17 07:27 Anion Gap 13 (10-20) 09/25/17 07:27 BUN 40 mg/dL (9-20) H 09/25/17 07:27 Creatinine 1.2 mg/dL (0.8-1.5) 09/25/17 07:27 Est GFR ( Amer) > 60 09/25/17 07:27 Est GFR (Non-Af Amer) > 60 09/25/17 07:27 Random Glucose 119 mg/dL (75-110) H 09/25/17 07:27 Calcium 8.4 mg/dl (8.6-10.4) L 09/25/17 07:27 Phosphorus 4.6 mg/dL (2.5-4.5) H 09/25/17 07:27 Magnesium 2.4 mg/dL (1.6-2.3) H 09/25/17 07:27 Total Bilirubin 1.1 mg/dL (0.2-1.3) 09/25/17 07:27 AST 127 U/L (17-59) H 09/25/17 07:27 ALT 183 U/L (21-72) H 09/25/17 07:27 Alkaline Phosphatase 349 U/L (38-126) H 09/25/17 07:27 Total Protein 6.6 g/dL (6.3-8.3) 09/25/17 07:27 Albumin 3.2 g/dL (3.5-5.0) L 09/25/17 07:27 Globulin 3.4 gm/dL (2.2-3.9) 09/25/17 07:27 Albumin/Globulin Ratio 0.9 (1.0-2.1) L 09/25/17 07:27 Triglycerides 201 mg/dL (0-149) H 09/21/17 08:08 Cholesterol 186 mg/dL (0-199) 09/21/17 08:08 LDL Cholesterol Direct 70 mg/dL (0-129) 09/21/17 08:08 HDL Cholesterol 42 mg/dL (30-70) 09/21/17 08:08 Amylase 210 U/L (30-110) H D 09/21/17 08:08 Lipase 158 U/L (23-300) 09/22/17 08:07 Vancomycin Trough 7.4 ug/mL (5.0-10.0) 09/24/17 07:42 Blood Type O NEGATIVE 09/20/17 11:24 Antibody Screen Negative 09/20/17 11:24 - Hospital Course Hospital Course: Upon Admission: CC: Abdominal Pain, Vomiting, Blood in Stool Pt is a 62 M with PMHX of HTN, Lung CA, Kidney CA, and anxiety presents c/o subjective abdominal pain, nausea, hematochezia x2, vomiting x2 this morning. The pt reported the symptoms started around 3 AM. Pt reported that he felt feverish, chills, and sweats. He had 2 episodes of vomiting that were bilious and non-bloody. The pt had one episode of hematochezia in the morning and an episode hematochezia in the ED around 1PM, which was his last bowel movement. Pt stated that the bowel movement was soft and brown. When he wiped he saw blood on the tissue paper and a few drops in the bowl. Pt reports episodes of hemoptysis. Pt states that the abdominal pain is localized to the RUQ and it radiates to the left upper and lower quadrant. Pt states that he associated bloating and nausea with the pain symptoms. Pt stated that he took his prescribed medications, 4 mg Dexamethasone and 10 mg Prochlorperazine today. Pt states that his last colonoscopy was 9 months ago and benign polyps were removed. An endoscopy was done at the same day, and nothing abnormal was found. Pt admits to intentional 32lbs lost. In the ED he admits to little chest pain, palpitations, SOB, cough, hemoptysis, nausea, hematochezia. Pt denies diarrhea, dysuria, and dyschezia. PMHX: HTN, Small Cell Carcinoma of Lung, Kidney CA FAMILY HX: Mother (Alive)- Alzheimer's Disease, DM, GERD; Father() Lung Fibroids, at 90; Daughter: Breast CA PSH: Shoulder Surgery Surgery ALLERGIES: PCN MEDICATIONS:Dexamthasone 4 mg PO BID, Prochlorperazine 10 mg Q6H SOCIAL: Pt denies current ETOH use and illicit drug use. Pt states that he smokes 1 pack of cigarettes a day for 35 years. Oncologist: Dr. Neely GI: Dr. Cortés Throughout Hospital Admission: Lung CA, small cell carcinoma with mets (liver, brain, kidney) Dr. Neely consulted, help appreciated - Can get outpatient chemotherapy, had already received [address] Walker consulted for port a cath placement 09/24 Right sided Acute Pancreatitis - -> RESOLVED Dr. Cortés consulted - help appreciated ? secondary to tumor necrosis vs, chemo Pancreatitis noted on CT imaging Lipase downtrending LFTS elevated - likely secondary to mets Dexamthasone 4 mg IVP BID Zofran 4mg IVP Q4H N/V Prochlorperazine 10 mg Q6H NGT was placed to relief stomach distention Leukocytosis --- > RESOLVED afebrile, downtrending Piperacillin/Tazobactam 3.375 gm Q6H - no antibiotics needed on discharge Thrombocytopenia continue to monitor no anticoagulation will encourage ambulation Hx. Anxiety Seroquel 25mg PO HS Insomnia Ambien 5mg PO HS prn Tobacco use last cigarette was 09/17 Nicotine TD Patch Duoneb 3ml INH RQ4 PRN Please review EMR for full record, as this is a brief summary of the patient's hospital course. Discharge Exam - Additional Findings Additional findings: - Constitutional Appears: Non-toxic, No Acute Distress - Head Exam Head Exam: ATRAUMATIC - Eye Exam Eye Exam: EOMI Pupil Exam: NORMAL ACCOMODATION - ENT Exam ENT Exam: Mucous Membranes Moist - Respiratory Exam Respiratory Exam: Decreased Breath Sounds, NORMAL BREATHING PATTERN. absent: Accessory Muscle Use - GI/Abdominal Exam GI & Abdominal Exam: Soft, Hypoactive Bowel Sounds. absent: Distended, Firm, Guarding, Tenderness - Extremities Exam Extremities Exam: Normal Inspection - Back Exam Back Exam: NORMAL INSPECTION - Neurological Exam Neurological Exam: Alert, Awake, CN II-XII Intact, Oriented x3 - Psychiatric Exam Psychiatric exam: Normal Affect, Normal Mood Discharge Plan - Discharge Medications Prescriptions: Aspirin [Ecotrin] 81 mg PO DAILY #30 tabec Cetirizine HCl 10 mg PO HS PRN #30 tablet PRN Reason: Allergy Symptoms Dexamethasone [Decadron] 4 mg PO DAILY #30 tab Donepezil [Aricept] 10 mg PO HS #30 tab Omeprazole 40 mg PO DAILY #30 capsule. Ranitidine HCl [Acid Maid Housekeeper] 150 mg PO BID #60 tablet Triamterene/Hydrochlorothiazid [Triamterene-Hctz 37.5-25 mg Cp] 1 each PO DAILY #30 capsule - Follow Up Plan Condition: STABLE Disposition: HOME/ ROUTINE Instructions: Kidney Cancer, Liver Cancer (DC), Pancreatitis (DC) Additional Instructions: He is to follow up with Dr. Frank ( your primary care physician) in 1-2 weeks for routine follow up. He is to follow up with Dr. Walker ( surgeon who placed the port-a-cath) in 1-2 weeks for routine post operative port-a-cath check. He is to follow up with Dr. Neely (cancer doctor) in 1-2 weeks to discuss when to restart chemotherapy. Please follow up with Dr. Cortés (client manager large law) within 1-2 weeks for routine follow up. Please continue all your home medications as you were prescribed. Please take care and be well. ---- l debe hacer un seguimiento con el Dr. Frank (villa mdico de atencin primaria) en 1-2 semanas para el seguimiento de rutina. l debe hacer un seguimiento con el Dr. Walker (cirujano que coloc el port-a-cath) en sherry o dos semanas para el control posoperatorio rutinario de port-a-cath. l debe hacer un seguimiento con el Dr. Neely (mdico de cncer) en 1-2 semanas para discutir cundo reiniciar la quimioterapia. Por favor, brodie un seguimiento con el Dr. Cortés (gastroenterlogo) dentro de 1- 2 semanas para el seguimiento de rutina. Por favor, contine con todos los medicamentos de villa casa segn lo prescrito. Por favor cudate y estate alec. Referrals: Evin Neely MD [Staff Provider] - Reza Walker Jr., MD [Staff Provider] - Jd Cortés MD [Staff Provider] - Kee Frank MD [Staff Provider] -
[2017-09-25] MEDS ORDERED: Piperacillin/Tazobact 3.375 GM in Sodium Chloride 0.9% 100 ML IVPB SCH (10:45)
--- NOTE | 2017-09-25 11:07 | RAD ---
PROCEDURE: Fluoroscopy up to 1 hr. HISTORY: RENAL CANCER COMPARISON: None TECHNIQUE: Standard protocol for this study/examination. FINDINGS: Total fluoroscopic time (continuous mode) utilized during the procedure 31.8 (seconds). Total exam DLP: (mGy) 5.83 IMPRESSION: Less than 1 hr fluoroscopic time utilized during performance of the procedure.
--- NOTE | 2017-09-25 11:07 | RAD ---
HISTORY: Status post port placement. COMPARISON: Comparison made with prior study 09/21/2017. FINDINGS: Interval placement right IJ MediPort tip in the SVC. LUNGS: Slight improvement previously noted patchy infiltrate changes in the right mid to lower lung zone. There also appears to be interval development of mild atelectatic changes in the left medial lung base PLEURA: No significant pleural effusion identified, no pneumothorax apparent. CARDIOVASCULAR: Normal. OSSEOUS STRUCTURES: No significant abnormalities. VISUALIZED UPPER ABDOMEN: Normal. OTHER FINDINGS: None. IMPRESSION: Interval placement right IJ MediPort as described. Slight improvement previously noted patchy infiltrate changes in the right mid to lower lung zone. There also appears to be interval development of mild atelectatic changes in the left medial lung base
--- NOTE | 2017-09-25 18:28 | CP.PCM.PN ---
Subjective - Date & Time of Evaluation Date of Evaluation: 09/24/17 Time of Evaluation: 10:00 - Subjective Subjective: Les abdominal pain. Objective - Vital Signs/Intake and Output Vital Signs (last 24 hours): Temp Pulse Resp BP Pulse Ox 97.6 F 71 20 103/68 96 09/25/17 00:22 09/25/17 00:22 09/25/17 00:22 09/25/17 00:22 09/25/17 00:22 Intake and Output: 09/25/17 09/25/17 06:59 18:59 Intake Total 700 Balance 700 - Labs Labs: 09/25/17 07:27 09/25/17 07:27 PT 12.1 SECONDS (9.7-12.2) 09/24/17 07:42 INR 1.1 09/24/17 07:42 APTT 26 SECONDS (21-34) 09/25/17 07:27 - Head Exam Head Exam: ATRAUMATIC - Eye Exam Eye Exam: Normal appearance - ENT Exam ENT Exam: Mucous Membranes Dry - Respiratory Exam Respiratory Exam: NORMAL BREATHING PATTERN - Cardiovascular Exam Cardiovascular Exam: +S1, +S2 - GI/Abdominal Exam GI & Abdominal Exam: Normal Bowel Sounds Assessment and Plan (1) Small cell lung cancer Assessment & Plan: extensive liver metastasis possible brain metastasis; 2mm lesion portacath placement outpatient chemotherapy Status: Acute (2) Thrombocytopenia Assessment & Plan: too soon to be chemotherapy induced cont. to monitor Status: Acute
== END 2017-09-25 13:12 | disposition home or self-care (01) | DRG 180 ==
LOC: C.ER 10:06 → C.9E 14:49 → C.3T 16:29
PROVIDERS: ADMIT Internal Medicine; ATTEND Internal Medicine
PROC: 02HV33Z Insertion of Infusion Device into Superior Vena Cava, Percutaneous Approach (ICD-10-PCS; principal; 2017-09-24 15:30)
DX: C34.91 Malignant neoplasm of unspecified part of right bronchus or lung (principal); K85.90 Acute pancreatitis without necrosis or infection, unspecified; C78.7 Secondary malignant neoplasm of liver and intrahepatic bile duct; C64.9 Malignant neoplasm of unspecified kidney, except renal pelvis; K56.609 Unspecified intestinal obstruction, unspecified as to partial versus complete obstruction; F17.210 Nicotine dependence, cigarettes, uncomplicated; D69.6 Thrombocytopenia, unspecified; F41.9 Anxiety disorder, unspecified; G47.00 Insomnia, unspecified; I10 Essential (primary) hypertension; K29.70 Gastritis, unspecified, without bleeding

== ENCOUNTER 2017-10-20 14:57 | Inpatient (IN) | payer MEDICARE ==
--- NOTE | 2017-10-20 15:07 | C.PDOC ---
History Of Present Illness 62 year old male, whose PMHx includes cancer of the lungs and kidneys, presents to the ER complaining of abdominal pain which began yesterday. Patient states pain is mostly around his upper abdomen and is associated with some nausea. Patient also feels like his abdomen is getting larger in size. He denies fever, chills, changes in bowel habits, or vomiting. 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 PMD: Dr Frank Oncologist: Dr. Neely GI: Dr. Cortés Time Seen by Provider: 10/20/17 15:01 Chief Complaint (Nursing): Abdominal Pain History Per: Patient History/Exam Limitations: no limitations Onset/Duration Of Symptoms: Hrs Current Symptoms Are (Timing): Still Present Additional History Per: Patient Past Medical History Reviewed: Historical Data, Nursing Documentation, Vital Signs Vital Signs: Last Vital Signs Temp 97.9 F 10/20/17 15:07 Pulse 114 H 10/20/17 17:27 Resp 20 10/20/17 17:27 BP 113/68 10/20/17 17:27 Pulse Ox 93 L 10/20/17 17:27 - Medical History PMH: Anxiety, Arthritis, Colonic Polyps, Gastritis, HTN Denies: Depression, Post Traumatic Stress Disorder, Chronic Kidney Disease Surgical History: Back Surgery, Endoscopy - [facility] Procedures ASSISTANCE WITH RESPIRATORY VENTILATION, 24-96 HRS, CPAP (09/01/17) EXCISION OF RIGHT MIDDLE LOBE BRONCHUS, ENDO, DIAGN (09/01/17) INSERTION OF INFUSION DEV INTO SUP VENA CAVA, PERC APPROACH (09/20/17) INSPECTION OF TRACHEOBRONCHIAL TREE, ENDO (09/01/17) Family History: States: Unknown Family Hx - Social History Hx Tobacco Use: Yes Hx Alcohol Use: No Hx Substance Use: No - Immunization History Hx Tetanus Toxoid Vaccination: Yes (3-4 years ago) Hx Influenza Vaccination: Yes (03/2015) Hx Pneumococcal Vaccination: No Review Of Systems Constitutional: Negative for: Fever, Chills Gastrointestinal: Positive for: Nausea, Abdominal Pain. Negative for: Vomiting , Diarrhea, Constipation Physical Exam - Physical Exam Appears: Non-toxic, Other (uncomfortable due to pain ) Skin: Normal Color, Warm, Dry Head: Atraumatic, Normacephalic Eye(s): bilateral: Normal Inspection Oral Mucosa: Moist Neck: Supple Chest: Symmetrical, No Deformity, No Tenderness Cardiovascular: Rhythm Regular, No Murmur, Other (tachycardia ) Respiratory: Normal Breath Sounds, No Rales, No Rhonchi, No Wheezing Gastrointestinal/Abdominal: Soft, Tenderness (diffuse), Distention, No Guarding , No Rebound Extremity: Normal ROM, Capillary Refill (less than 2 seconds ) Neurological/Psych: Oriented x3, Normal Speech, Normal Cognition ED Course And Treatment - Laboratory Results Result Diagrams: 10/20/17 15:29 10/20/17 15:29 - Other Rad Obstructive Series Abdomen X-Ray: Interpreted by Me, Viewed By Me, Read By Radiologist Interpretation: PROCEDURE: Radiographs of the chest and abdomen (obstructive series). HISTORY: abd pain. COMPARISON: No prior. TECHNIQUE: AP radiograph of the chest, with upright and supine radiographs of the abdomen. FINDINGS: CHEST: Lungs: Diffuse interstitial infiltrate. This may reflect interstitial pulmonary edema or pulmonary interstitial disease. No focal consolidation. Cardiovascular: Normal heart size. Right central venous infusion port. Pleura: No pleural fluid. No pneumothorax. Other findings: None. ABDOMEN AND PELVIS: Bowel: Unremarkable bowel gas pattern. No evidence of mechanical obstruction. Free air: None. Bones: Unremarkable. Other findings: None. IMPRESSION: Diffuse interstitial infiltrate. Nonspecific. Normal bowel gas pattern. - CT Scan/US CT A/P Other Rad Studies (CT/US): Interpreted By Me, Read By Radiologist, Radiology Report Reviewed CT/US Interpretation: PROCEDURE: CT Abdomen and Pelvis with contrast. HISTORY : upper abd pain h.o pancreatitis and malignancy. COMPARISON: 09/20/2017. TECHNIQUE: Contrast dose: 100 mL Visipaque 320. Radiation dose: Total exam DLP = 1033.86 mGy-cm. This CT exam was performed using one or more of the following dose reduction techniques: Automated exposure control, adjustment of the mA and/or kV according to patient size, and/or use of iterative reconstruction technique. FINDINGS: LOWER THORAX: Interstitial infiltrate in both lung bases. Consolidation lateral segment right middle lobe. Possible neoplasm. Right hilar and mediastinal lymphadenopathy noted. LIVER: Multiple low-density masses consistent with metastatic disease. Normal size and contour. No biliary obstruction. GALLBLADDER AND BILE DUCTS: Unremarkable. PANCREAS: Pancreas is significant for markedly decreased peripancreatic infiltration as compared to the prior examination. However, there is a low- density mass in the body tail junction of the pancreas measuring approximately 5.2 cm in diameter. Lobulated soft tissue density extends caudally from this mass, posteriorly where it appears to encase the left renal vein. This is strongly suspicious for pancreatic neoplasm. In addition, there is lobulated soft tissue density extending cephalad from the distal pancreatic tail, abutting the posterior wall of the stomach. There is no pancreatic ductal dilatation. The low-density mass in the pancreas is felt to most likely represent neoplasm though intrapancreatic pseudocyst must also be considered. SPLEEN: Unremarkable. ADRENALS: Unremarkable. No mass. KIDNEYS AND URETERS: Innumerable left renal cysts. Few right renal cysts. No renal calculus or hydronephrosis. There is abnormal soft tissue density in the left posterior para renal space not evident on prior CT and suspicious for neoplasm. VASCULATURE: Unremarkable. No aortic aneurysm. BOWEL: Mural thickening and pericolonic inflammatory change involving the distal transverse colon and splenic flexure. Nonspecific. There is mural thickening and dilatation of several loops of proximal jejunum. This may be due to neoplastic infiltration or inflammation from pancreatitis. Cannot rule out mechanical bowel obstruction. There is mural thickening of the 3rd portion of the duodenum. There is mural thickening of long the posterior wall of the stomach which may reflect inflammation from pancreatitis or may reflect neoplastic infiltration. APPENDIX: Not identified. PERITONEUM: No ascites. No pneumoperitoneum. LYMPH NODES: Right retrocaval lymphadenopathy at the level of the lobo hepatis. No pelvic lymphadenopathy. BLADDER: Unremarkable. REPRODUCTIVE: Normal prostate. BONES: No acute fracture. OTHER FINDINGS: None. IMPRESSION : Findings strongly suspicious for pancreatic neoplasm. This has increased in size and extension when compared to the prior examination of 09/20/2017. There is encasement of the left renal vein. There is extension suspected along the left posterior para renal space. There is extension from the distal pancreatic tail. These all represent interval change when compared to the prior CT examination. There is dilatation and mural thickening of several loops of proximal jejunum as well as the 3rd duodenum. There is mural thickening of the posterior wall of the stomach. These findings may be related to inflammation from pancreatitis or may be related to neoplastic infiltration. Metastatic disease to the liver is noted. There is mural thickening of the distal transverse colon/ splenic flexure with pericolonic infiltration. Nonspecific colitis. This represents interval change from prior examination. Medical Decision Making Medical Decision Making: Impression: 62 year old male with abdominal pain h.o cancer Prior records reviewed: patient last admitted 09/20/17 for abdominal pain with hematochezia, found to have pancreatitis. Plan: * bloodwork * urinalysis * abdominal ultrasound * obstructive series abdomen * CT A/P * Zofran IVP * Morphine IVP * IV Fluids Progress: Bloodwork, urinalysis, Abdominal ultrasound, Obstructive Series Abdomen, CT A/P ordered and reviewed. Patient continued to have abdominal pain. IV Toradol ordered CT shows new pancreatic mass, see full report. Will contact hospitalist for admission Dr Hung accepted patient to service Disposition - Disposition Disposition: HOSPITALIZED Disposition Time: 18:00 Condition: STABLE - POA Present On Arrival: None - Clinical Impression Clinical Impression: Abnormal finding on CT scan, Renal metastasis, Small cell lung cancer, Abdominal pain - PA / BUSINESS SOLUTIONS ANALYST / Resident Statement MD/DO has reviewed & agrees with the documentation as recorded. - Scribe Statement The provider has reviewed the documentation as recorded by the Scribe (Eliane Iverson) All medical record entries made by the Scribe were at my direction and personally dictated by me. I have reviewed the chart and agree that the record accurately reflects my personal performance of the history, physical exam, medical decision making, and the department course for this patient. I have also personally directed, reviewed, and agree with the discharge instructions and disposition. Decision To Admit - Pt Status Changed To: Hospital Disposition Of: Inpatient - Admit Certification Admit to Inpatient:: After my assessment, the patient will require hospitalization for at least two midnights. This is because of the severity of symptoms shown, intensity of services needed, and/or the medical risk in this patient being treated as an outpatient. - InPatient: Physician Admission Certification: I certify that this patient requires 2 or more midnights of care for the following reason:: patient with abnormal CT findings, new mass to pancreas since last admission.patient in acute pain. - . Bed Request Type: Regular Admitting Physician: Anson Hung Patient Diagnosis: Abnormal finding on CT scan, Renal metastasis, Small cell lung cancer, Abdominal pain
[2017-10-20] MEDS ORDERED: Sodium Chloride 0.9% 1,000 ML IV ONE (15:13)
[2017-10-20] MEDS ORDERED: Sodium Chloride 0.9% 1,000 ML ONE (15:36)
[2017-10-20 15:37] LABS: BASO % 0.4 % (0.0-2.0); EOS % 0.1 % (0.0-4.0); LYMPH # 0.9 K/uL (1.0-4.3); MEAN CORPUSCULAR HEMOGLOBIN 27.6 pg (27.0-31.0); MEAN CORPUSCULAR HGB CONC 34.5 g/dL (33.0-37.0); MEAN PLATELET VOLUME 6.8 fL (7.2-11.7); MONO % 0.4 % (0.0-10.0); NEUT # 2.7 K/uL (1.8-7.0); NEUT % 75.1 % (50.0-75.0); NRBC % 0.2 % (0.0-2.0); RBC 4.71 Mil/uL (4.40-5.90); RED CELL DISTRIBUTION WIDTH 18.7 % (11.5-14.5); WHITE BLOOD COUNT 3.6 K/uL (4.8-10.8)
--- NOTE | 2017-10-20 16:05 | RAD ---
PROCEDURE: Radiographs of the chest and abdomen (obstructive series) HISTORY: abd pain COMPARISON: No prior. TECHNIQUE: AP radiograph of the chest, with upright and supine radiographs of the abdomen. FINDINGS: CHEST: Lungs: Diffuse interstitial infiltrate. This may reflect interstitial pulmonary edema or pulmonary interstitial disease. No focal consolidation. Cardiovascular: Normal heart size. Right central venous infusion port. Pleura: No pleural fluid. No pneumothorax. Other findings: None. ABDOMEN AND PELVIS: Bowel: Unremarkable bowel gas pattern. No evidence of mechanical obstruction. Free air: None. Bones: Unremarkable. Other findings: None. IMPRESSION: Diffuse interstitial infiltrate. Nonspecific. Normal bowel gas pattern.
[2017-10-20] MEDS ORDERED: Morphine 4 MG/ML VIAL ONE (16:06)
[2017-10-20 16:19] LABS: ALBUMIN 3.4 g/dL (3.5-5.0); ALT/SGPT 58 U/L (21-72); AMYLASE 283 U/L (30-110); AST/SGOT 54 U/L (17-59); BLOOD UREA NITROGEN 30 mg/dL (9-20); CALCIUM 8.2 mg/dl (8.6-10.4); GFR AFRICAN-AMERICAN > 60; GFR NON-AFRICAN AMERICAN > 60; LIPASE 844 U/L (23-300)
[2017-10-20] MEDS ORDERED: Iodixanol 320 MG/ML 100 ML BOTTLE IV ONE (16:52)
--- NOTE | 2017-10-20 17:48 | CT ---
PROCEDURE: CT Abdomen and Pelvis with contrast HISTORY: upper abd pain h.o pancreatitis and malignancy COMPARISON: 09/20/2017 TECHNIQUE: Contrast dose: 100 mL Visipaque 320 Radiation dose: Total exam DLP = 1033.86 mGy-cm. This CT exam was performed using one or more of the following dose reduction techniques: Automated exposure control, adjustment of the mA and/or kV according to patient size, and/or use of iterative reconstruction technique. FINDINGS: LOWER THORAX: Interstitial infiltrate in both lung bases. Consolidation lateral segment right middle lobe. Possible neoplasm. Right hilar and mediastinal lymphadenopathy noted. LIVER: Multiple low-density masses consistent with metastatic disease. Normal size and contour. No biliary obstruction. GALLBLADDER AND BILE DUCTS: Unremarkable. PANCREAS: Pancreas is significant for markedly decreased peripancreatic infiltration as compared to the prior examination. However, there is a low-density mass in the body tail junction of the pancreas measuring approximately 5.2 cm in diameter. Lobulated soft tissue density extends caudally from this mass, posteriorly where it appears to encase the left renal vein. This is strongly suspicious for pancreatic neoplasm. In addition, there is lobulated soft tissue density extending cephalad from the distal pancreatic tail, abutting the posterior wall of the stomach. There is no pancreatic ductal dilatation. The low-density mass in the pancreas is felt to most likely represent neoplasm though intrapancreatic pseudocyst must also be considered. SPLEEN: Unremarkable. ADRENALS: Unremarkable. No mass. KIDNEYS AND URETERS: Innumerable left renal cysts. Few right renal cysts. No renal calculus or hydronephrosis. There is abnormal soft tissue density in the left posterior para renal space not evident on prior CT and suspicious for neoplasm. VASCULATURE: Unremarkable. No aortic aneurysm. BOWEL: Mural thickening and pericolonic inflammatory change involving the distal transverse colon and splenic flexure. Nonspecific. There is mural thickening and dilatation of several loops of proximal jejunum. This may be due to neoplastic infiltration or inflammation from pancreatitis. Cannot rule out mechanical bowel obstruction. There is mural thickening of the 3rd portion of the duodenum. There is mural thickening of long the posterior wall of the stomach which may reflect inflammation from pancreatitis or may reflect neoplastic infiltration. APPENDIX: Not identified PERITONEUM: No ascites. No pneumoperitoneum. LYMPH NODES: Right retrocaval lymphadenopathy at the level of the lobo hepatis. No pelvic lymphadenopathy. BLADDER: Unremarkable. REPRODUCTIVE: Normal prostate BONES: No acute fracture. OTHER FINDINGS: None. IMPRESSION: Findings strongly suspicious for pancreatic neoplasm. This has increased in size and extension when compared to the prior examination of 09/20/2017. There is encasement of the left renal vein. There is extension suspected along the left posterior para renal space. There is extension from the distal pancreatic tail. These all represent interval change when compared to the prior CT examination. There is dilatation and mural thickening of several loops of proximal jejunum as well as the 3rd duodenum. There is mural thickening of the posterior wall of the stomach. These findings may be related to inflammation from pancreatitis or may be related to neoplastic infiltration. Metastatic disease to the liver is noted. There is mural thickening of the distal transverse colon/ splenic flexure with pericolonic infiltration. Nonspecific colitis. This represents interval change from prior examination.
[2017-10-20] MEDS ORDERED: HYDROmorphone 0.5 mg/0.5 ml ISec IVP PRN ×2 (18:06→18:15)
[2017-10-20] MEDS ORDERED: HYDROmorphone 0.5 mg/0.5 ml ISec IVP STA (18:14)
[2017-10-20] MEDS ORDERED: Morphine 4 MG/ML VIAL IVP PRN (18:15)
[2017-10-20] MEDS ORDERED: HYDROmorphone 1 mg/ml ISec IVP STA (18:29)
[2017-10-20] MEDS: Sodium Chloride 0.9% 1,000 ML IV SCH (18:33)
--- NOTE | 2017-10-20 19:12 | CP.PCM.HP ---
History of Present Illness - History of Present Illness History of Present Illness: This is a 62 year old male who is very well known to me and to the service. He is a 62 year old gentleman with a history of small cell cancer of the lung that in the recent past has had metatstatic spread to the liver, right kidney and has had several hospitalizations due to abdominal pain secondary to pancreatitis. He has a mediport and is routinely getting chemotherapy and his latest round was this week, he said he tolerated the chemo very well the few days following therapy. Today he came in again with abdominal pain and again had elevated lipase and amylase. The patient and family member explain that the patient was doing very well up until this morning when he then suddenly developed abdominal pain. He was then short of breath and reporting palpitations as well. He also had nausea , lack of appettie as well. No BMs at this time. In the ER this time the CT scan without contrast revealed that he now has a large lesion on the mid pancreatic area. This is a new finding from before, the previous CT scan from one month ago did not show this. On exam he had very tender abdomen to light palpation, almost guarding in nature. It was midly improved with the pain medication being given. On vital signs he had a low SpO2 on room air 92 to 93%. He has lung CA on the right lung, we are checking a CT of the lungs right now in case he has a PNA or worsening lung CA. I discussed with both surgery as well as hematology oncology. In the past the patient has responded to conservative measures, supportive measures, however given the extent of his pain we will check ABG now and again overnight. Should the patient become acidotic or develop a high lactic acid level he may need surgical intervention overnight. As of now his serum bicarb is stable. I have ordered IVF, extensive pain medications, and repeat portable CXRAYs [place] (as he in the past has gotten fluid overload and needed lasix) PMHX: HTN, Small Cell Carcinoma of Lung, Kidney CA FAMILY HX: Mother (Alive)- Alzheimer's Disease, DM, GERD; Father() Lung Fibroids, at 90; Daughter: Breast CA PSH: Mediport placement, Shoulder Surgery Surgery ALLERGIES: PCN MEDICATIONS:Dexamthasone 4 mg PO BID, Prochlorperazine 10 mg Q6H SOCIAL: Pt smokes 1 pack of cigarettes a day for 35 years up until the diagnosis of lung CA 3 months ago. Present on Admission - Present on Admission Any Indicators Present on Admission: Yes History of DVT/PE: No History of Uncontrolled Diabetes: No Urinary Catheter: No Decubitus Ulcer Present: No Review of Systems - Cardiovascular Cardiovascular: Dyspnea - Respiratory Respiratory: Dyspnea on Exertion - Gastrointestinal Gastrointestinal: Abdominal Pain, Belching, Bloating Past Patient History - Infectious Disease Hx of Infectious Diseases: None - Past Medical History & Family History Past Medical History?: Yes - Past Social History Smoking Status: Former Smoker - CARDIAC Hx Hypertension: Yes - PULMONARY Hx Respiratory Disorders: No - NEUROLOGICAL Hx Neurological Disorder: No - HEENT Hx HEENT Problems: No - RENAL Hx Chronic Kidney Disease: No - ENDOCRINE/METABOLIC Hx Endocrine Disorders: No - HEMATOLOGICAL/ONCOLOGICAL Hx Blood Disorders: No Other/Comment: CA to Right kidney stage 4. 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 Had his last chemo yesterday 09/19/17 - INTEGUMENTARY Hx Dermatological Problems: No - MUSCULOSKELETAL/RHEUMATOLOGICAL Hx Arthritis: Yes - GASTROINTESTINAL Hx Gastritis: Yes - GENITOURINARY/GYNECOLOGICAL Hx Genitourinary Disorders: No - PSYCHIATRIC Hx Anxiety: Yes Hx Depression: No Hx Post Traumatic Stress Disorder: No Hx Substance Use: No - SURGICAL HISTORY Hx Surgeries: Yes Hx Arthroscopy: No Hx Open Reduction Internal Fixation: No Hx Orthopedic Surgery: Yes (RIGHT SHOULDER ROTO CUFF) Other/Comment: Back surgery 2016 - ANESTHESIA Hx Anesthesia: Yes Hx Anesthesia Reactions: No Hx Malignant Hyperthermia: No Meds Allergies/Adverse Reactions: Allergies Allergy/AdvReac Type Severity Reaction Status Date / Time Penicillins AdvReac Intermediate DIZZINESS Verified 10/20/17 15:08 Physical Exam - Eye Exam Eye Exam: EOMI, Normal appearance - ENT Exam ENT Exam: Mucous Membranes Moist - Respiratory Exam Respiratory Exam: Decreased Breath Sounds, Rales, Rhonchi Additional comments: Decreased lung sounds R > L - Cardiovascular Exam Cardiovascular Exam: Tachycardia - GI/Abdominal Exam GI & Abdominal Exam: Distended, Firm, Guarding Additional comments: Abdomen is distended. Tender to palpation - Neurological Exam Neurological exam: Alert, CN II-XII Intact, Oriented x3 - Psychiatric Exam Psychiatric exam: Anxious - Skin Skin Exam: Normal Color, Warm Results - Vital Signs Recent Vital Signs: Last Vital Signs Temp 98.1 F 10/20/17 18:08 Pulse 110 H 10/20/17 18:39 Resp 20 10/20/17 18:39 BP 101/68 10/20/17 18:39 Pulse Ox 92 L 10/20/17 18:39 - Labs Result Diagrams: 10/20/17 15:29 10/20/17 15:29 Labs: Laboratory Results - last 24 hr 10/20/17 10/20/17 15:29 15:29 WBC 3.6 L RBC 4.71 Hgb 13.0 Hct 37.7 MCV 80.0 MCH 27.6 MCHC 34.5 RDW 18.7 H Plt Count 484 H D MPV 6.8 L Neut % (Auto) 75.1 H Lymph % (Auto) 24.0 [place] % (Auto) 0.4 Eos % (Auto) 0.1 Baso % (Auto) 0.4 Neut # (Auto) 2.7 Lymph # (Auto) 0.9 L [place] # (Auto) 0.0 Eos # (Auto) 0.0 Baso # (Auto) 0.0 Differential Comment Sodium 133 Potassium 3.9 Chloride 97 L Carbon Dioxide 22 Anion Gap 18 BUN 30 H Creatinine 0.9 Est GFR ( Amer) > 60 Est GFR (Non-Af Amer) > 60 Random Glucose 207 H Calcium 8.2 L Total Bilirubin 1.6 H AST 54 ALT 58 Alkaline Phosphatase 349 H Total Protein 6.7 Albumin 3.4 L Globulin 3.3 Albumin/Globulin Ratio 1.0 Amylase 283 H D Lipase 844 H Assessment & Plan - Assessment and Plan (Free Text) Assessment: This is a 62 year old male with history of recent diagnosis of small cell lung CA and metastatic spread to the liver, right kidney and now has lesions on the pancrease. He has been here before with abdominal pain secondary to pancreatitis and it has responded to conservative measures. Lung CA, small cell carcinoma with spread to the liver, R kidney, and now has pancreatic mass 10/20/2017: Patient is low SpO2s. Will check a CT of the lung to see if he has a new PNA as he is getting chemotherapy and could be immune compromised, or if the lung CA on the right lung is getting worse. He will need to be on nasal cannula. We are checking ABG now and again at midnight. Acute Pancreatitis, now has pancreatic mass - maybe metastatic spread 10/20/2017: Like previous will give IVF, extensive pain medications. If need to maybe place NGT as he had one placed last admission with some relief. NPO except for ICE chips. Dexamthasone 4 mg PO BID Zofran 4mg IVP Q4H N/V Shortness of breath, Hypoxia 10/20: Low SpO2s. Will follow ABGs overnight, pending a CT of the lung now and if has pneumonia will start IV abx. Thrombocytopenia 10/20: Currently stable, per hematology oncology has been getting Tobacco use last cigarette was 09/17 Nicotine TD Patch Prophylaxis SCD
[2017-10-20 19:30] LABS: ABG ALLEN TEST POS; ARTERIAL BLOOD GAS O2 SAT 96.3 % (95-98); ARTERIAL BLOOD GAS PCO2 28 mm/Hg (35-45); ARTERIAL BLOOD GAS PH 7.42 (7.35-7.45); ARTERIAL BLOOD GAS PO2 69 mm/Hg (80-100); ARTERIAL BLOOD GAS TCO2 19.1 mmol/L (22-28)
--- NOTE | 2017-10-20 20:11 | CP.PCM.CON ---
History of Present Illness - History of Present Illness History of Present Illness: SURGERY CONSULT NOTE FOR DR. JORDAN 62M presents to [facility] for abdominal pain that started today. Patient states he has something similar last months but this is much stronger. He states the pain is in the epigastric and left side of his abdomen and is constant. The pain is associated with nausea but patient has not vomited. He states he has been passing flatus and continues to have bowel movements. He does feel feverish and is diaphoretic. He was diagnoses with Stage 4 lung cancer with mets to liver, kidney and now pancreas as per newest scan. Patient has second rounds of chemotherapy Sunday - Sunday of this week and tolerated well until today. PMH: Stage 4 lung ca, HTN, Anxiety, Gastritis, HTN PSH: Back surgery, Endoscopy Social: quit tobacco, denies alcohol use Allergies: Penicillins Past Patient History - Infectious Disease Hx of Infectious Diseases: None - Past Medical History & Family History Past Medical History?: Yes - Past Social History Smoking Status: Former Smoker - CARDIAC Hx Hypertension: Yes - PULMONARY Hx Respiratory Disorders: No - NEUROLOGICAL Hx Neurological Disorder: No - HEENT Hx HEENT Problems: No - RENAL Hx Chronic Kidney Disease: No - ENDOCRINE/METABOLIC Hx Endocrine Disorders: No - HEMATOLOGICAL/ONCOLOGICAL Hx Blood Disorders: No Other/Comment: CA to Right kidney stage 4. 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 Had his last chemo yesterday 09/19/17 - INTEGUMENTARY Hx Dermatological Problems: No - MUSCULOSKELETAL/RHEUMATOLOGICAL Hx Arthritis: Yes - GASTROINTESTINAL Hx Gastritis: Yes - GENITOURINARY/GYNECOLOGICAL Hx Genitourinary Disorders: No - PSYCHIATRIC Hx Anxiety: Yes Hx Depression: No Hx Post Traumatic Stress Disorder: No Hx Substance Use: No - SURGICAL HISTORY Hx Surgeries: Yes Hx Arthroscopy: No Hx Open Reduction Internal Fixation: No Hx Orthopedic Surgery: Yes (RIGHT SHOULDER ROTO CUFF) Other/Comment: Back surgery 2016 - ANESTHESIA Hx Anesthesia: Yes Hx Anesthesia Reactions: No Hx Malignant Hyperthermia: No Meds Allergies/Adverse Reactions: Allergies Allergy/AdvReac Type Severity Reaction Status Date / Time Penicillins AdvReac Intermediate DIZZINESS Verified 10/20/17 15:08 - Medications Medications: Current Medications Alprazolam (Xanax) 0.25 mg PO BID [facility] Stop: 10/28/17 10:01 Dexamethasone (Decadron) 4 mg PO DAILY [facility] Donepezil HCl (Aricept) 10 mg PO HS [facility] Enoxaparin Sodium (Lovenox) 40 mg SC DAILY [facility] Hydromorphone HCl (Dilaudid) 1 mg IVP Q3H PRN PRN Reason: Pain, severe (8-10) Sodium Chloride (Sodium Chloride 0.9%) 1,000 mls @ 100 mls/hr IV .Q10H [facility] Last Admin: 10/20/17 18:33 Dose: 100 mls/hr Ondansetron HCl (Zofran Inj) 4 mg IVP Q6 PRN PRN Reason: Nausea/Vomiting Oxycodone HCl (Oxycontin Extended Release Tab) 10 mg PO Q12 [facility] Stop: 10/23/17 22:01 Physical Exam - Constitutional Additional comments: uncomfortable due to pain - Eye Exam Eye Exam: EOMI, PERRL - Respiratory Exam Respiratory Exam: Clear to Auscultation Bilateral, NORMAL BREATHING PATTERN - Cardiovascular Exam Cardiovascular Exam: REGULAR RHYTHM, +S1, +S2 - GI/Abdominal Exam Additional comments: full, moderately tender diffusely especially in the epigastric region, severely distended, non rigid, no rebound - Extremities Exam Extremities exam: Negative for: pedal edema, tenderness - Neurological Exam Neurological exam: Alert, Oriented x3 - Psychiatric Exam Psychiatric exam: Normal Affect, Normal Mood - Skin Skin Exam: Dry, Intact, Normal Color, Warm Results - Vital Signs Recent Vital Signs: Last Vital Signs Temp 97.3 F L 10/20/17 19:42 Pulse 118 H 10/20/17 19:42 Resp 20 10/20/17 19:42 BP 106/73 10/20/17 19:42 Pulse Ox 92 L 10/20/17 19:42 - Labs Result Diagrams: 10/20/17 15:29 10/20/17 15:29 Labs: Laboratory Results - last 24 hr 10/20/17 10/20/17 10/20/17 15:29 15:29 19:24 WBC 3.6 L RBC 4.71 Hgb 13.0 Hct 37.7 MCV 80.0 MCH 27.6 MCHC 34.5 RDW 18.7 H Plt Count 484 H D MPV 6.8 L Neut % (Auto) 75.1 H Lymph % (Auto) 24.0 [place] % (Auto) 0.4 Eos % (Auto) 0.1 Baso % (Auto) 0.4 Neut # (Auto) 2.7 Lymph # (Auto) 0.9 L [place] # (Auto) 0.0 Eos # (Auto) 0.0 Baso # (Auto) 0.0 Differential Comment Puncture Site Rra pCO2 28 L pO2 69 L HCO3 21.0 ABG pH 7.42 ABG Total CO2 19.1 L ABG O2 Saturation 96.3 ABG Base Excess -4.9 L Jt Test Pos ABG Potassium 3.4 L A-a O2 Difference 46.0 Respiratory Index 0.7 Glucose 137 H Lactate 1.8 FiO2 21.0 Sodium 133 136.0 Potassium 3.9 Chloride 97 L 107.0 Carbon Dioxide 22 Anion Gap 18 BUN 30 H Creatinine 0.9 Est GFR ( Amer) > 60 Est GFR (Non-Af Amer) > 60 Random Glucose 207 H Calcium 8.2 L Total Bilirubin 1.6 H AST 54 ALT 58 Alkaline Phosphatase 349 H Total Protein 6.7 Albumin 3.4 L Globulin 3.3 Albumin/Globulin Ratio 1.0 Amylase 283 H D Lipase 844 H Arterial Blood Potassium 3.4 L Assessment & Plan - Assessment and Plan (Free Text) Assessment: 62M with stage 4 lung cancer presents with pancreatitis causing secondary gastritis, enteritis and colitis Plan: - NPO, IVF - Pain control - Anti-emetics - Antibiotics - NGT being inserted - Serial abdominal exams Further recs discuss with Dr. Odilon Interiano, PGY2
[2017-10-20] MEDS ORDERED: Piperacill/Tazo 3.375gm in Dex 3.375 GM/50 ML BAG IVPB SCH (20:15)
--- NOTE | 2017-10-20 20:34 | CT ---
EXAM: CT Chest Without Intravenous Contrast EXAM DATE/TIME: Exam ordered 10/20/2017 6:14 PM CLINICAL HISTORY: 62 years old, male; Pain; Chest pain; Patient HX: Patient has lung ca, worsening spo2s. Prior 09-02-17 TECHNIQUE: Axial computed tomography images of the chest without intravenous contrast. All CT scans at this facility use one or more dose reduction techniques, viz.: automated exposure control; ma/kV adjustment per patient size (including targeted exams where dose is matched to indication; i.e. head); or iterative reconstruction technique. Coronal and sagittal reformatted images were created and reviewed. COMPARISON: CT - CHEST W/O CONTRAST 2017-09-02 13:40 FINDINGS: Lungs: There is thickening of the interlobular septa diffusely in both lungs. Subpleural fibrosis is noted in the left upper lobe. There is a right perihilar mass with volume loss noted in the right middle lobe and right upper lobe. Traction bronchiectasis is noted at the right lung base. There are scattered areas of groundglass opacity in both lungs. Patchy subpleural consolidation is noted at the right lung base Pleural space: Unremarkable. No pneumothorax. No significant effusion. Heart: There is coronary artery calcification. No significant pericardial effusion. Bones/joints: There is a right shoulder arthroplasty. No acute fracture. No dislocation. Soft tissues: Unremarkable. Vasculature: Unremarkable. No thoracic aortic aneurysm. Lymph nodes:A pretracheal lymph node measures 1.9 x 2.3 x 1.7 cm compared to previous measurement of 3 x 2.9 x 2.7 cm. a right suprahilar mass measures 1.6 x 4.7 x 2.7 cm compared to previous measurement of 5.8 x 2.2 x 2.5 cm at the same level. An enlarged lymph node is noted medial to the right adrenal gland measuring 1.9 x 1.5 x 2.6 cm. This was not seen previously. Liver: The liver appears heterogeneous in density. Spleen: Unremarkable Pancreas: Loculated fluid collection is noted in the left upper quadrant posterior and medial to the spleen. A dominant cyst measuring 5.5 x 4.5 by at least 1.5 cm is noted in the body of the pancreas and imaged incompletely. 2 cysts are noted in the pancreatic tail measuring 2 cm and a 1.7 cm respectively in maximum diameter. Inflammatory changes surround the pancreatic tail and the gastric fundus and body. One of the cysts appears to communicate with the stomach along the greater curvature inferiorly Kidneys and ureters: A portion of a multiloculated cyst arising from the upper pole of the left kidney. A dense nephrogram is noted in the upper pole of the right kidney. The kidneys are imaged incompletely Stomach: There is thickening noted of the greater curvature of the stomach particularly posteriorly adjacent to the pancreas. IMPRESSION: 1. Improved aeration of the right middle lobe and right upper lobe secondary to a decrease in size of right perihilar mass and mediastinal adenopathy. Residual volume loss predominantly in the right middle lobe 2. Diffuse interstitial lung disease with fibrotic changes bilaterally. 3. Heterogeneous in density noted of the liver. This is less conspicuous than previous and suggests some improvement in metastatic involvement of the liver. 4. Pancreatitis suggested with the probable pseudocyst formation. Findings suggest decompression/erosion of one of the cysts into the stomach.
[2017-10-20] MEDS ORDERED: oxyCODONE 10 mg ER Tab (oxyCONTIN) PO SCH (22:00)
[2017-10-20] MEDS: metroNIDAZOLE IV 500 mg/100 ml 500 MG/100 ML BAG IVPB SCH (22:04)
[2017-10-20] MEDS: HYDROmorphone 1 mg/ml ISec IVP PRN (22:53)
[2017-10-20] MEDS: Aztreonam 2 GM in Sodium Chloride 0.9% 100 ML IVPB SCH (22:58)
[2017-10-21] MEDS: HYDROmorphone 1 mg/ml ISec IVP PRN ×6 (03:11→21:37)
[2017-10-21 04:50] LABS: ABG ALLEN TEST POS; ARTERIAL BLOOD GAS HCO3 22.8 mmol/L (21-28); ARTERIAL BLOOD GAS O2 SAT 87.4 % (95-98); ARTERIAL BLOOD GAS PCO2 33 mm/Hg (35-45); ARTERIAL BLOOD GAS PH 7.42 (7.35-7.45); ARTERIAL BLOOD GAS PO2 47 mm/Hg (80-100); ARTERIAL BLOOD GAS TCO2 22.4 mmol/L (22-28)
[2017-10-21] MEDS: Sodium Chloride 0.9% 1,000 ML IV SCH ×3 (05:03→18:00)
[2017-10-21] MEDS: metroNIDAZOLE IV 500 mg/100 ml 500 MG/100 ML BAG IVPB SCH ×3 (05:22→21:41)
[2017-10-21] MEDS: Aztreonam 2 GM in Sodium Chloride 0.9% 100 ML IVPB SCH ×3 (05:58→21:38)
--- NOTE | 2017-10-21 06:48 | CP.PCM.PN ---
Subjective - Date & Time of Evaluation Date of Evaluation: 10/21/17 Time of Evaluation: 06:45 - Subjective Subjective: SURGERY PROGRESS NOTE 62M seen and examined at bedside. Patient resting comfortably, continues to admit to diffuse pain, NGT has 1000cc since input. Admits to flatus and bowel movement Objective - Vital Signs/Intake and Output Vital Signs (last 24 hours): Temp Pulse Resp BP Pulse Ox 98.4 F 100 H 20 99/62 L 95 10/20/17 23:50 10/20/17 23:50 10/20/17 23:50 10/20/17 23:50 10/20/17 23:50 Intake and Output: 10/20/17 10/21/17 18:59 06:59 Intake Total 400 Output Total 600 Balance -200 - Medications Medications: Current Medications Alprazolam (Xanax) 0.25 mg PO BID [facility] Stop: 10/28/17 10:01 Dexamethasone (Decadron) 4 mg PO DAILY [facility] Donepezil HCl (Aricept) 10 mg PO HS [facility] Enoxaparin Sodium (Lovenox) 40 mg SC DAILY [facility] Hydromorphone HCl (Dilaudid) 1 mg IVP Q3H PRN PRN Reason: Pain, severe (8-10) Last Admin: 10/21/17 03:11 Dose: 1 mg Sodium Chloride (Sodium Chloride 0.9%) 1,000 mls @ 100 mls/hr IV .Q10H [facility] Last Admin: 10/21/17 05:03 Dose: 100 mls/hr Metronidazole (Flagyl) 500 mg in 100 mls @ 100 mls/hr IVPB Q8H [facility] PRN Reason: Protocol Last Admin: 10/21/17 05:22 Dose: 100 mls/hr Aztreonam 2 gm/ Sodium (Chloride) 100 mls @ 200 mls/hr IVPB Q8H [facility] PRN Reason: Protocol Last Admin: 10/21/17 05:58 Dose: 200 mls/hr Ondansetron HCl (Zofran Inj) 4 mg IVP Q6 PRN PRN Reason: Nausea/Vomiting Oxycodone HCl (Oxycontin Extended Release Tab) 10 mg PO Q12 [facility] Stop: 10/23/17 22:01 - Labs Labs: 10/20/17 15:29 06/16/18 15:29 - Constitutional Appears: Non-toxic, No Acute Distress - Respiratory Exam Respiratory Exam: Clear to Ausculation Bilateral, NORMAL BREATHING PATTERN - Cardiovascular Exam Cardiovascular Exam: REGULAR RHYTHM, +S1, +S2 - GI/Abdominal Exam GI & Abdominal Exam: Distended, Soft, Tenderness. absent: Firm, Guarding, Rigid , Rebound Additional comments: full abdomen, tender to palpation diffusely - Extremities Exam Extremities Exam: absent: Pedal Edema, Tenderness - Neurological Exam Neurological Exam: Alert, Awake Assessment and Plan - Assessment and Plan (Free Text) Assessment: 62M with metastatic lung ca presents with pancreatitis and secondary gastritis/ enteritis/colitis Plan: NPO Adequate IVF NGT Pain control Antibiotics Serial abdominal exams Further recs discuss with Dr. Odilon Interiano, PGY2
[2017-10-21 07:48] LABS: BASO % 0.9 % (0.0-2.0); EOS % 2.2 % (0.0-4.0); HEMOGLOBIN 11.9 g/dL (12.0-18.0); LYMPH # 0.4 K/uL (1.0-4.3); MEAN CELL VOLUME 81.2 fL (80.0-94.0); MEAN CORPUSCULAR HEMOGLOBIN 27.5 pg (27.0-31.0); MEAN CORPUSCULAR HGB CONC 33.8 g/dL (33.0-37.0); MONO % 1.1 % (0.0-10.0); NEUT # 0.5 K/uL (1.8-7.0); NEUT % 55.8 % (50.0-75.0); NRBC % 0.7 % (0.0-2.0); RBC 4.33 Mil/uL (4.40-5.90); RED CELL DISTRIBUTION WIDTH 18.1 % (11.5-14.5)
[2017-10-21 08:10] LABS: ALB/GLOB RATIO 1.1 (1.0-2.1); ALT/SGPT 49 U/L (21-72); AST/SGOT 38 U/L (17-59); BLOOD UREA NITROGEN 39 mg/dL (9-20); CALCIUM 7.2 mg/dl (8.6-10.4); GFR AFRICAN-AMERICAN > 60; GFR NON-AFRICAN AMERICAN 51; LIPASE 752 U/L (23-300)
[2017-10-21] MEDS ORDERED: HYDROmorphone 0.5 mg/0.5 ml ISec IVP STA (08:33)
--- NOTE | 2017-10-21 09:43 | CP.PCM.CON ---
History of Present Illness - History of Present Illness History of Present Illness: Metastatic CA,. Getting chemo. Severe abdom pain- mid left. Occ constip. Review of Systems - Constitutional Constitutional: Fatigue, Weight Loss - Cardiovascular Cardiovascular: absent: Chest Pain, Dyspnea - Respiratory Respiratory: absent: Hemoptysis, Wheezing - Gastrointestinal Gastrointestinal: Constipation, Nausea. absent: Dysphagia, Hematemesis, Hematochezia, Melena, Odynophagia - Genitourinary Genitourinary: absent: Hematuria - Musculoskeletal Musculoskeletal: absent: Muscle Cramps - Integumentary Integumentary: absent: Rash - Neurological Neurological: absent: Convulsions Past Patient History - Infectious Disease Hx of Infectious Diseases: None - Past Medical History & Family History Past Medical History?: Yes - Past Social History Smoking Status: Former Smoker - CARDIAC Hx Hypertension: Yes - PULMONARY Hx Respiratory Disorders: No - NEUROLOGICAL Hx Neurological Disorder: No - HEENT Hx HEENT Problems: No - RENAL Hx Chronic Kidney Disease: No - ENDOCRINE/METABOLIC Hx Endocrine Disorders: No - HEMATOLOGICAL/ONCOLOGICAL Hx Blood Disorders: No Other/Comment: CA to Right kidney stage 4. 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 Had his last chemo yesterday 09/19/17 - INTEGUMENTARY Hx Dermatological Problems: No - MUSCULOSKELETAL/RHEUMATOLOGICAL Hx Falls: No - GASTROINTESTINAL Hx Gastritis: Yes - GENITOURINARY/GYNECOLOGICAL Hx Genitourinary Disorders: No - PSYCHIATRIC Hx Anxiety: Yes Hx Depression: No Hx Post Traumatic Stress Disorder: No Hx Substance Use: No - SURGICAL HISTORY Hx Surgeries: Yes Hx Arthroscopy: No Hx Open Reduction Internal Fixation: No Hx Orthopedic Surgery: Yes (RIGHT SHOULDER ROTO CUFF) Other/Comment: Back surgery 2016 - ANESTHESIA Hx Anesthesia: Yes Hx Anesthesia Reactions: No Hx Malignant Hyperthermia: No Meds Allergies/Adverse Reactions: Allergies Allergy/AdvReac Type Severity Reaction Status Date / Time Penicillins AdvReac Intermediate DIZZINESS Verified 10/20/17 15:08 - Medications Medications: Current Medications Alprazolam (Xanax) 0.25 mg PO BID [facility] Stop: 10/28/17 10:01 Dexamethasone (Decadron) 4 mg PO DAILY [facility] Donepezil HCl (Aricept) 10 mg PO HS [facility] Enoxaparin Sodium (Lovenox) 40 mg SC DAILY [facility] Hydromorphone HCl (Dilaudid) 1 mg IVP Q3H PRN PRN Reason: Pain, severe (8-10) Last Admin: 10/21/17 07:00 Dose: 1 mg Sodium Chloride (Sodium Chloride 0.9%) 1,000 mls @ 100 mls/hr IV .Q10H [facility] Last Admin: 10/21/17 05:03 Dose: 100 mls/hr Metronidazole (Flagyl) 500 mg in 100 mls @ 100 mls/hr IVPB Q8H [facility] PRN Reason: Protocol Last Admin: 10/21/17 05:22 Dose: 100 mls/hr Aztreonam 2 gm/ Sodium (Chloride) 100 mls @ 200 mls/hr IVPB Q8H [facility] PRN Reason: Protocol Last Admin: 10/21/17 05:58 Dose: 200 mls/hr Ondansetron HCl (Zofran Inj) 4 mg IVP Q6 PRN PRN Reason: Nausea/Vomiting Oxycodone HCl (Oxycontin Extended Release Tab) 10 mg PO Q12 [facility] Stop: 10/23/17 22:01 Physical Exam - Constitutional Appears: Non-toxic - Respiratory Exam Respiratory Exam: Rhonchi - Cardiovascular Exam Cardiovascular Exam: RRR - GI/Abdominal Exam GI & Abdominal Exam: Distended, Normal Bowel Sounds, Tenderness - Extremities Exam Extremities exam: Negative for: calf tenderness - Neurological Exam Neurological exam: Alert, Oriented x3 Results - Vital Signs Recent Vital Signs: Last Vital Signs Temp 97.8 F 10/21/17 08:00 Pulse 124 H 10/21/17 08:00 Resp 22 10/21/17 08:00 BP 107/73 10/21/17 08:00 Pulse Ox 95 10/20/17 23:50 - Labs Result Diagrams: 10/21/17 07:39 10/21/17 07:39 Labs: Laboratory Results - last 24 hr 10/20/17 10/20/17 10/20/17 15:29 15:29 19:24 WBC 3.6 L RBC 4.71 Hgb 13.0 Hct 37.7 MCV 80.0 MCH 27.6 MCHC 34.5 RDW 18.7 H Plt Count 484 H D MPV 6.8 L Neut % (Auto) 75.1 H Lymph % (Auto) 24.0 [place] % (Auto) 0.4 Eos % (Auto) 0.1 Baso % (Auto) 0.4 Neut # (Auto) 2.7 Lymph # (Auto) 0.9 L [place] # (Auto) 0.0 Eos # (Auto) 0.0 Baso # (Auto) 0.0 Differential Comment Puncture Site Rra pCO2 28 L pO2 69 L HCO3 21.0 ABG pH 7.42 ABG Total CO2 19.1 L ABG O2 Saturation 96.3 ABG Base Excess -4.9 L Jt Test Pos ABG Potassium 3.4 L A-a O2 Difference 46.0 Respiratory Index 0.7 Glucose 137 H Lactate 1.8 FiO2 21.0 Sodium 133 136.0 Potassium 3.9 Chloride 97 L 107.0 Carbon Dioxide 22 Anion Gap 18 BUN 30 H Creatinine 0.9 Est GFR ( Amer) > 60 Est GFR (Non-Af Amer) > 60 Random Glucose 207 H Calcium 8.2 L Total Bilirubin 1.6 H AST 54 ALT 58 Alkaline Phosphatase 349 H Total Protein 6.7 Albumin 3.4 L Globulin 3.3 Albumin/Globulin Ratio 1.0 Amylase 283 H D Lipase 844 H Arterial Blood Potassium 3.4 L 10/21/17 10/21/17 10/21/17 04:45 07:39 07:39 WBC 1.0 L* D RBC 4.33 L Hgb 11.9 L Hct 35.2 MCV 81.2 MCH 27.5 MCHC 33.8 RDW 18.1 H Plt Count 401 H MPV 7.0 L Neut % (Auto) 55.8 Lymph % (Auto) 40.0 [place] % (Auto) 1.1 Eos % (Auto) 2.2 Baso % (Auto) 0.9 Neut # (Auto) 0.5 L Lymph # (Auto) 0.4 L [place] # (Auto) 0.0 Eos # (Auto) 0.0 Baso # (Auto) 0.0 Differential Comment Puncture Site Na pCO2 33 L pO2 47 L HCO3 22.8 ABG pH 7.42 ABG Total CO2 22.4 ABG O2 Saturation 87.4 L ABG Base Excess -2.3 L Jt Test Pos ABG Potassium 4.2 A-a O2 Difference Respiratory Index Glucose 172 H Lactate 1.4 FiO2 Sodium 132.0 136 Potassium 4.5 Chloride 104.0 101 Carbon Dioxide 20 L Anion Gap 19 BUN 39 H Creatinine 1.4 Est GFR ( Amer) > 60 Est GFR (Non-Af Amer) 51 Random Glucose 169 H Calcium 7.2 L Total Bilirubin 1.3 AST 38 ALT 49 Alkaline Phosphatase 281 H Total Protein 5.9 L Albumin 3.0 L Globulin 2.8 Albumin/Globulin Ratio 1.1 Amylase Lipase 752 H Arterial Blood Potassium 4.2 Assessment & Plan (1) Abdominal pain Assessment and Plan: extensive metastatic disease. Rec- Dr Arteaga f/u, palliative care, pain management Status: Acute (2) Abnormal finding on CT scan Status: Acute (3) Renal metastasis Status: Acute (4) Small cell lung cancer Status: Acute (5) Abnormal LFTs Status: Acute (6) HTN (hypertension) Status: Acute (7) Liver metastases Status: Acute (8) Pancreatitis Assessment and Plan: juvencio parson. Status: Acute
--- NOTE | 2017-10-21 09:48 | RAD ---
HISTORY: He has lung CA, we are having to give a lot of IVF COMPARISON: October 20, 2017. CT thorax 09/24/2017 single-view chest FINDINGS: LUNGS: Persistent right lower lobe infiltrate better visualized on concurrent CT. Compared to the prior chest x-ray 09/24/2017 this is improved. PLEURA: No significant pleural effusion identified, no pneumothorax apparent. CARDIOVASCULAR: Cardiomegaly. No evidence of acute, significant cardiovascular disease. . Venous access catheter in stable, satisfactory position. OSSEOUS STRUCTURES: No significant abnormalities. VISUALIZED UPPER ABDOMEN: Normal. OTHER FINDINGS: Stable at adenopathy better visualized on recent CT scan IMPRESSION: Re- demonstration infiltrate/mass right lower lobe improved compared to 09/24/2017.
[2017-10-21] MEDS: Enoxaparin 40 mg Syringe SC SCH (10:33)
--- NOTE | 2017-10-21 11:59 | CP.PCM.PN ---
<Yoan Vizcaino - Last Filed: 10/21/17 14:21> Subjective - Date & Time of Evaluation Date of Evaluation: 10/21/17 Time of Evaluation: 11:00 - Subjective Subjective: Patient seen and examined at bedside with family member present. Patient still complains of severe abdominal pain despite of having Dilaudid every 3 hours. He admits to passing gas. He denies fever, chills, chest pain, or vomiting. Objective - Vital Signs/Intake and Output Vital Signs (last 24 hours): Temp Pulse Resp BP Pulse Ox 97.8 F 124 H 22 107/73 95 10/21/17 08:00 10/21/17 08:00 10/21/17 08:00 10/21/17 08:00 10/20/17 23:50 Intake and Output: 10/21/17 10/21/17 06:59 18:59 Intake Total 400 800 Output Total 600 350 Balance -200 450 - Medications Medications: Current Medications Alprazolam (Xanax) 0.25 mg PO BID [facility] Stop: 10/28/17 10:01 Last Admin: 10/21/17 10:26 Dose: 0.25 mg Dexamethasone (Decadron) 4 mg PO DAILY [facility] Last Admin: 10/21/17 10:26 Dose: 4 mg Donepezil HCl (Aricept) 10 mg PO HS [facility] Enoxaparin Sodium (Lovenox) 40 mg SC DAILY [facility] Last Admin: 10/21/17 10:33 Dose: 40 mg Fentanyl (Duragesic) 1 patch TD Q72H [facility] Hydromorphone HCl (Dilaudid) 1 mg IVP Q3H PRN PRN Reason: Pain, severe (8-10) Last Admin: 10/21/17 10:19 Dose: 1 mg Sodium Chloride (Sodium Chloride 0.9%) 1,000 mls @ 100 mls/hr IV .Q10H [facility] Last Admin: 10/21/17 05:03 Dose: 100 mls/hr Metronidazole (Flagyl) 500 mg in 100 mls @ 100 mls/hr IVPB Q8H [facility] PRN Reason: Protocol Last Admin: 10/21/17 05:22 Dose: 100 mls/hr Aztreonam 2 gm/ Sodium (Chloride) 100 mls @ 200 mls/hr IVPB Q8H [facility] PRN Reason: Protocol Last Admin: 10/21/17 05:58 Dose: 200 mls/hr Ondansetron HCl (Zofran Inj) 4 mg IVP Q6 PRN PRN Reason: Nausea/Vomiting - Labs Labs: 10/21/17 07:39 10/21/17 07:39 - Constitutional Appears: Unkempt, Chronically Ill - Head Exam Head Exam: ATRAUMATIC, NORMOCEPHALIC - Eye Exam Eye Exam: EOMI, Normal appearance - ENT Exam ENT Exam: Mucous Membranes Moist - Neck Exam Neck Exam: Normal Inspection - Respiratory Exam Respiratory Exam: Decreased Breath Sounds, NORMAL BREATHING PATTERN. 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 Continue to complain of pain despite of Dilaudid 1mg Q3Hr, will start Fentanyl patch. Palliative consulted. Follow up Heme/onc recommendations. CT chest and CXR show improvement of right middle and upper lobe perihilar mass compared to prior studies. 10/20/2017: Patient is low SpO2s. Will check a CT of the lung to see if he has a new PNA as he is getting chemotherapy and could be immune compromised, or if the lung CA on the right lung is getting worse. He will need to be on nasal cannula. We are checking ABG now and again at midnight. Acute Pancreatitis, now has pancreatic mass - likely metastatic spread 10/21: Continue IVF, no surgical intervention planned. GI recommends pain management, palliative care and heme/onc 10/20/2017: Like previous will give IVF, extensive pain medications. If need to maybe place NGT as he had one placed last admission with some relief. NPO except for ICE chips. Dexamthasone 4 mg PO BID Zofran 4mg IVP Q4H N/V Shortness of breath, Hypoxia 10/21: Repeat ABG overnight shows slight improvement 10/20: Low SpO2s. Will follow ABGs overnight, pending a CT of the lung now and if has pneumonia will start IV abx. Thrombocytopenia 10/21: AM CBC shows WBC of 1, Granix 480mcg sc today 10/20: Currently stable, per hematology oncology has been getting chemotherapy Tobacco use last cigarette was 09/17 Nicotine TD Patch History of Anxiety Xanax 0.25mg BID Prophylaxis SCD Lovenox <Anson Hung H - Last Filed: 10/21/17 14:59> Objective - Vital Signs/Intake and Output Vital Signs (last 24 hours): Temp Pulse Resp BP Pulse Ox 97.8 F 124 H 22 107/73 95 10/21/17 08:00 10/21/17 08:00 10/21/17 08:00 10/21/17 08:00 10/20/17 23:50 Intake and Output: 10/21/17 10/21/17 06:59 18:59 Intake Total 400 800 Output Total 600 350 Balance -200 450 - Medications Medications: Current Medications Alprazolam (Xanax) 0.25 mg PO BID [facility] Stop: 10/28/17 10:01 Last Admin: 10/21/17 10:26 Dose: 0.25 mg Dexamethasone (Decadron) 4 mg PO DAILY [facility] Last Admin: 10/21/17 10:26 Dose: 4 mg Donepezil HCl (Aricept) 10 mg PO HS [facility] Enoxaparin Sodium (Lovenox) 40 mg SC DAILY [facility] Last Admin: 10/21/17 10:33 Dose: 40 mg Fentanyl (Duragesic) 1 patch TD Q72H [facility] Last Admin: 10/21/17 11:50 Dose: 1 patch Hydromorphone HCl (Dilaudid) 1 mg IVP Q3H PRN PRN Reason: Pain, severe (8-10) Last Admin: 10/21/17 14:34 Dose: 1 mg Sodium Chloride (Sodium Chloride 0.9%) 1,000 mls @ 100 mls/hr IV .Q10H [facility] Last Admin: 10/21/17 14:27 Dose: Not Given Metronidazole (Flagyl) 500 mg in 100 mls @ 100 mls/hr IVPB Q8H [facility] PRN Reason: Protocol Last Admin: 10/21/17 14:33 Dose: 100 mls/hr Aztreonam 2 gm/ Sodium (Chloride) 100 mls @ 200 mls/hr IVPB Q8H [facility] PRN Reason: Protocol Last Admin: 10/21/17 13:30 Dose: 200 mls/hr Ondansetron HCl (Zofran Inj) 4 mg IVP Q6 PRN PRN Reason: Nausea/Vomiting - Labs Labs: 10/21/17 07:39 10/21/17 07:39 Attending/Attestation - Attestation I have personally seen and examined this patient.: Yes I have fully participated in the care of the patient.: Yes I have reviewed all pertinent clinical information, including history, physical exam and plan: Yes Notes (Text): 10/21/17 14:55 Medical attending: Patient was seen and examined by me. Agree with the above note by the resident The patient had ongoing pain at night. When I saw him this morning he was still having pain. We talked about the CT scan of the abdomen and pelvis - the malignancy has unfourtunately spread a lot and now appears to be around the pancrease and stomach areas. He understands overall prognosis is not good. He wants to talk to some of his family members. Palliative care discussion tommorow. He understands the importance of having a discussion with reguards to code status. He has an NGT at this time and 1 liter of green purluent material was in the canister. Will add on fentanyl TD patch for further pain control along with the IV Dilaudid. Overall prognosis poor Anson Hung
[2017-10-21] MEDS ORDERED: Sodium Chloride 0.9% 500 ML IV SCH (12:15)
--- NOTE | 2017-10-21 15:04 | CP.PCM.CON ---
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 He had a similar episode with his last chemotherapy. The patient received chemotherapy Sunday - with carboplatin and etoposide. He notes to worsening abdominal pain Sunday with N/V. Due to increasing pain and fatigue he came to the ER and was found to have elevated LFTs and lipase. Past medical history: tobacco abuse, HTN, anxiety Past surgical history: Shoulder surgery Family history: Daughter has breast cancer Social history: Smokes 1/2pp x 45 years, denies alcohol and illicit drug use. Allergies: Penicillins Review of systems: All remaining review of systems including HEENT, cardiovascular, respiratory, gastrointestinal, genitourinary, musculoskeletal, dermatologic, neurologic, and psychiatric are negative unless mentioned in the HPI. Past Patient History - Infectious Disease Hx of Infectious Diseases: None - Past Medical History & Family History Past Medical History?: Yes - Past Social History Smoking Status: Former Smoker - CARDIAC Hx Hypertension: Yes - PULMONARY Hx Respiratory Disorders: No - NEUROLOGICAL Hx Neurological Disorder: No - HEENT Hx HEENT Problems: No - RENAL Hx Chronic Kidney Disease: No - ENDOCRINE/METABOLIC Hx Endocrine Disorders: No - HEMATOLOGICAL/ONCOLOGICAL Hx Blood Disorders: No Other/Comment: CA to Right kidney stage 4. 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 Had his last chemo yesterday 09/19/17 - INTEGUMENTARY Hx Dermatological Problems: No - MUSCULOSKELETAL/RHEUMATOLOGICAL Hx Falls: No - GASTROINTESTINAL Hx Gastritis: Yes - GENITOURINARY/GYNECOLOGICAL Hx Genitourinary Disorders: No - PSYCHIATRIC Hx Anxiety: Yes Hx Depression: No Hx Post Traumatic Stress Disorder: No Hx Substance Use: No - SURGICAL HISTORY Hx Surgeries: Yes Hx Arthroscopy: No Hx Open Reduction Internal Fixation: No Hx Orthopedic Surgery: Yes (RIGHT SHOULDER ROTO CUFF) Other/Comment: Back surgery 2016 - ANESTHESIA Hx Anesthesia: Yes Hx Anesthesia Reactions: No Hx Malignant Hyperthermia: No Meds Allergies/Adverse Reactions: Allergies Allergy/AdvReac Type Severity Reaction Status Date / Time Penicillins AdvReac Intermediate DIZZINESS Verified 10/20/17 15:08 - Medications Medications: Current Medications Alprazolam (Xanax) 0.25 mg PO BID [facility] Stop: 10/28/17 10:01 Last Admin: 10/21/17 10:26 Dose: 0.25 mg Dexamethasone (Decadron) 4 mg PO DAILY [facility] Last Admin: 10/21/17 10:26 Dose: 4 mg Donepezil HCl (Aricept) 10 mg PO [facility] Enoxaparin Sodium (Lovenox) 40 mg SC DAILY [facility] Last Admin: 10/21/17 10:33 Dose: 40 mg Fentanyl (Duragesic) 1 patch TD Q72H [facility] Last Admin: 10/21/17 11:50 Dose: 1 patch Hydromorphone HCl (Dilaudid) 1 mg IVP Q3H PRN PRN Reason: Pain, severe (8-10) Last Admin: 10/21/17 14:34 Dose: 1 mg Sodium Chloride (Sodium Chloride 0.9%) 1,000 mls @ 100 mls/hr IV .Q10H [facility] Last Admin: 10/21/17 14:27 Dose: Not Given Metronidazole (Flagyl) 500 mg in 100 mls @ 100 mls/hr IVPB Q8H [facility] PRN Reason: Protocol Last Admin: 10/21/17 14:33 Dose: 100 mls/hr Aztreonam 2 gm/ Sodium (Chloride) 100 mls @ 200 mls/hr IVPB Q8H [facility] PRN Reason: Protocol Last Admin: 10/21/17 13:30 Dose: 200 mls/hr Ondansetron HCl (Zofran Inj) 4 mg IVP Q6 PRN PRN Reason: Nausea/Vomiting Physical Exam - Head Exam Head Exam: ATRAUMATIC - Eye Exam Eye Exam: Normal appearance - ENT Exam ENT Exam: Mucous Membranes Dry - Respiratory Exam Respiratory Exam: NORMAL BREATHING PATTERN - Cardiovascular Exam Cardiovascular Exam: +S1, +S2 - GI/Abdominal Exam GI & Abdominal Exam: Normal Bowel Sounds - Extremities Exam Extremities exam: Positive for: normal inspection - Neurological Exam Neurological exam: Oriented x3 - Psychiatric Exam Psychiatric exam: Normal Affect, Normal Mood - Skin Skin Exam: Warm Results - Vital Signs Recent Vital Signs: Last Vital Signs Temp 97.8 F 10/21/17 08:00 Pulse 124 H 10/21/17 08:00 Resp 22 10/21/17 08:00 BP 107/73 10/21/17 08:00 Pulse Ox 95 10/20/17 23:50 - Labs Result Diagrams: 10/21/17 07:39 10/21/17 07:39 Labs: Laboratory Results - last 24 hr 10/20/17 10/20/17 10/20/17 15:29 15:29 19:24 WBC 3.6 L RBC 4.71 Hgb 13.0 Hct 37.7 MCV 80.0 MCH 27.6 MCHC 34.5 RDW 18.7 H Plt Count 484 H D MPV 6.8 L Neut % (Auto) 75.1 H Lymph % (Auto) 24.0 Stanton % (Auto) 0.4 Eos % (Auto) 0.1 Baso % (Auto) 0.4 Neut # (Auto) 2.7 Lymph # (Auto) 0.9 L Stanton # (Auto) 0.0 Eos # (Auto) 0.0 Baso # (Auto) 0.0 Differential Comment Puncture Site Rra pCO2 28 L pO2 69 L HCO3 21.0 ABG pH 7.42 ABG Total CO2 19.1 L ABG O2 Saturation 96.3 ABG Base Excess -4.9 L Jt Test Pos ABG Potassium 3.4 L A-a O2 Difference 46.0 Respiratory Index 0.7 Glucose 137 H Lactate 1.8 FiO2 21.0 Sodium 133 136.0 Potassium 3.9 Chloride 97 L 107.0 Carbon Dioxide 22 Anion Gap 18 BUN 30 H Creatinine 0.9 Est GFR ( Amer) > 60 Est GFR (Non-Af Amer) > 60 Random Glucose 207 H Calcium 8.2 L Total Bilirubin 1.6 H AST 54 ALT 58 Alkaline Phosphatase 349 H Total Protein 6.7 Albumin 3.4 L Globulin 3.3 Albumin/Globulin Ratio 1.0 Amylase 283 H D Lipase 844 H Arterial Blood Potassium 3.4 L 10/21/17 10/21/17 10/21/17 04:45 07:39 07:39 WBC 1.0 L* D RBC 4.33 L Hgb 11.9 L Hct 35.2 MCV 81.2 MCH 27.5 MCHC 33.8 RDW 18.1 H Plt Count 401 H MPV 7.0 L Neut % (Auto) 55.8 Lymph % (Auto) 40.0 Stanton % (Auto) 1.1 Eos % (Auto) 2.2 Baso % (Auto) 0.9 Neut # (Auto) 0.5 L Lymph # (Auto) 0.4 L Stanton # (Auto) 0.0 Eos # (Auto) 0.0 Baso # (Auto) 0.0 Differential Comment Puncture Site Na pCO2 33 L pO2 47 L HCO3 22.8 ABG pH 7.42 ABG Total CO2 22.4 ABG O2 Saturation 87.4 L ABG Base Excess -2.3 L Jt Test Pos ABG Potassium 4.2 A-a O2 Difference Respiratory Index Glucose 172 H Lactate 1.4 FiO2 Sodium 132.0 136 Potassium 4.5 Chloride 104.0 101 Carbon Dioxide 20 L Anion Gap 19 BUN 39 H Creatinine 1.4 Est GFR ( Amer) > 60 Est GFR (Non-Af Amer) 51 Random Glucose 169 H Calcium 7.2 L Total Bilirubin 1.3 AST 38 ALT 49 Alkaline Phosphatase 281 H Total Protein 5.9 L Albumin 3.0 L Globulin 2.8 Albumin/Globulin Ratio 1.1 Amylase Lipase 752 H Arterial Blood Potassium 4.2 Assessment & Plan (1) Neutropenia Assessment and Plan: secondary to chemotherapy will start grwoth factor support neutropenic precautions Status: Acute (2) Anemia Assessment and Plan: secondary to chemotherapy Status: Acute (3) Pancreatitis Assessment and Plan: pancreatic metastasis from small cell lung cancer likely inflammation from tumor necrosis given pain only with chemotherapy Status: Acute (4) Small cell lung cancer Assessment and Plan: stage IV imaging suggestive of response to chemotherapy supportive care Thank you for this interesting consult. Status: Acute
[2017-10-22] MEDS: Sodium Chloride 0.9% 1,000 ML IV SCH ×5 (00:21→22:49)
[2017-10-22] MEDS: HYDROmorphone 1 mg/ml ISec IVP PRN ×3 (02:24→21:05)
[2017-10-22] MEDS: metroNIDAZOLE IV 500 mg/100 ml 500 MG/100 ML BAG IVPB SCH ×3 (05:17→21:06)
[2017-10-22] MEDS: Aztreonam 2 GM in Sodium Chloride 0.9% 100 ML IVPB SCH ×3 (06:20→22:00)
--- NOTE | 2017-10-22 07:33 | CP.PCM.PN ---
Subjective - Date & Time of Evaluation Date of Evaluation: 10/22/17 Time of Evaluation: 07:30 - Subjective Subjective: SURGERY PROGRESS NOTE 62M seen and examined at bedside. Patient standing up and walking. Starts pain is getting better but still there, mainly in epigastric region and left side. Patient denies nausea, vomiting, denies flatus or bowel movements. Objective - Vital Signs/Intake and Output Vital Signs (last 24 hours): Temp Pulse Resp BP Pulse Ox 98.1 F 100 H 20 117/77 97 10/21/17 23:55 10/21/17 23:55 10/21/17 23:55 10/21/17 23:55 10/21/17 23:55 Intake and Output: 10/22/17 10/22/17 06:59 18:59 Intake Total 2200 Output Total 3500 Balance -1300 - Medications Medications: Current Medications Alprazolam (Xanax) 0.25 mg PO BID [facility] Stop: 10/28/17 10:01 Last Admin: 10/21/17 17:09 Dose: 0.25 mg Dexamethasone (Decadron) 4 mg PO DAILY [facility] Last Admin: 10/21/17 10:26 Dose: 4 mg Donepezil HCl (Aricept) 10 mg PO HS [facility] Last Admin: 10/21/17 21:48 Dose: 10 mg Enoxaparin Sodium (Lovenox) 40 mg SC DAILY [facility] Last Admin: 10/21/17 10:33 Dose: 40 mg Famotidine (Pepcid) 20 mg PO DAILY [facility] Fentanyl (Duragesic) 1 patch TD Q72H [facility] Last Admin: 10/21/17 11:50 Dose: 1 patch Hydromorphone HCl (Dilaudid) 1 mg IVP Q3H PRN PRN Reason: Pain, severe (8-10) Last Admin: 10/22/17 06:38 Dose: 1 mg Metronidazole (Flagyl) 500 mg in 100 mls @ 100 mls/hr IVPB Q8H [facility] PRN Reason: Protocol Last Admin: 10/22/17 05:17 Dose: 100 mls/hr Aztreonam 2 gm/ Sodium (Chloride) 100 mls @ 200 mls/hr IVPB Q8H [facility] PRN Reason: Protocol Last Admin: 10/22/17 06:20 Dose: 200 mls/hr Sodium Chloride (Sodium Chloride 0.9%) 1,000 mls @ 150 mls/hr IV .Q6H40M [facility] Last Admin: 10/22/17 00:21 Dose: Not Given Ondansetron HCl (Zofran Inj) 4 mg IVP Q6 PRN PRN Reason: Nausea/Vomiting - Labs Labs: 10/21/17 07:39 10/21/17 07:39 - Constitutional Appears: Non-toxic, No Acute Distress, Other (obese) - Respiratory Exam Respiratory Exam: Clear to Ausculation Bilateral, NORMAL BREATHING PATTERN - Cardiovascular Exam Cardiovascular Exam: REGULAR RHYTHM, +S1, +S2 - GI/Abdominal Exam GI & Abdominal Exam: Distended, Soft, Tenderness (epigastric and left sided tenderness to palpation). absent: Firm, Guarding, Rigid Additional comments: NGT 3L total - Extremities Exam Extremities Exam: absent: Pedal Edema, Tenderness - Neurological Exam Neurological Exam: Alert, Awake Assessment and Plan - Assessment and Plan (Free Text) Assessment: 62M with stage 4 lung ca with pancreatitis Plan: - NPO, IVF - Continue NGT output - Continue antibiotics - Consider Neutropenic precautions No surgical intervention at this time Gilberto Interiano, PGY2
[2017-10-22 08:40] LABS: BASO % 0.6 % (0.0-2.0); EOS % 5.1 % (0.0-4.0); LYMPH # 0.2 K/uL (1.0-4.3); MEAN CELL VOLUME 81.1 fL (80.0-94.0); MEAN CORPUSCULAR HEMOGLOBIN 27.8 pg (27.0-31.0); MEAN CORPUSCULAR HGB CONC 34.3 g/dL (33.0-37.0); MEAN PLATELET VOLUME 6.8 fL (7.2-11.7); MONO % 2.6 % (0.0-10.0); NEUT # 0.5 K/uL (1.8-7.0); NEUT % 60.7 % (50.0-75.0); NRBC % 0.2 % (0.0-2.0); RBC 3.58 Mil/uL (4.40-5.90); RED CELL DISTRIBUTION WIDTH 18.5 % (11.5-14.5)
[2017-10-22 08:41] LABS: WHITE BLOOD COUNT 0.7 K/uL (4.8-10.8)
[2017-10-22 08:54] LABS: ALBUMIN 3.1 g/dL (3.5-5.0); ALT/SGPT 43 U/L (21-72); AST/SGOT 32 U/L (17-59); BLOOD UREA NITROGEN 33 mg/dL (9-20); CALCIUM 7.9 mg/dl (8.6-10.4); GFR AFRICAN-AMERICAN > 60; GFR NON-AFRICAN AMERICAN > 60
[2017-10-22] MEDS: Enoxaparin 40 mg Syringe SC SCH (10:32)
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
--- NOTE | 2017-10-22 15:52 | CP.PCM.PN ---
Subjective - Date & Time of Evaluation Date of Evaluation: 10/22/17 Time of Evaluation: 15:50 - Subjective Subjective: + Abdominal pain NG on suction Objective - Vital Signs/Intake and Output Vital Signs (last 24 hours): Temp Pulse Resp BP Pulse Ox 98.5 F 117 H 20 146/82 96 10/22/17 08:00 10/22/17 08:00 10/22/17 08:00 10/22/17 08:00 10/22/17 08:00 Intake and Output: 10/22/17 10/22/17 06:59 18:59 Intake Total 2200 1200 Output Total 3500 1250 Balance -1300 -50 - Medications Medications: Current Medications Alprazolam (Xanax) 0.25 mg PO BID [facility] Stop: 10/28/17 10:01 Last Admin: 10/22/17 10:31 Dose: 0.25 mg Dexamethasone (Decadron) 4 mg PO DAILY [facility] Last Admin: 10/22/17 10:32 Dose: 4 mg Donepezil HCl (Aricept) 10 mg PO HS [facility] Last Admin: 10/21/17 21:48 Dose: 10 mg Enoxaparin Sodium (Lovenox) 40 mg SC DAILY [facility] Last Admin: 10/22/17 10:32 Dose: 40 mg Famotidine (Pepcid) 20 mg PO DAILY [facility] Last Admin: 10/22/17 10:32 Dose: 20 mg Fentanyl (Duragesic) 1 patch TD Q72H [facility] Last Admin: 10/21/17 11:50 Dose: 1 patch Hydromorphone HCl (Dilaudid) 1 mg IVP Q3H PRN PRN Reason: Pain, severe (8-10) Last Admin: 10/22/17 06:38 Dose: 1 mg Metronidazole (Flagyl) 500 mg in 100 mls @ 100 mls/hr IVPB Q8H [facility] PRN Reason: Protocol Last Admin: 10/22/17 15:00 Dose: 100 mls/hr Aztreonam 2 gm/ Sodium (Chloride) 100 mls @ 200 mls/hr IVPB Q8H [facility] PRN Reason: Protocol Last Admin: 10/22/17 14:23 Dose: 200 mls/hr Sodium Chloride (Sodium Chloride 0.9%) 1,000 mls @ 125 mls/hr IV .Q8H [facility] Last Admin: 10/22/17 08:38 Dose: 125 mls/hr Ondansetron HCl (Zofran Inj) 4 mg IVP Q6 PRN PRN Reason: Nausea/Vomiting - Labs Labs: 10/22/17 08:31 10/22/17 08:31 - Constitutional Appears: No Acute Distress - Eye Exam Eye Exam: absent: Scleral icterus - Respiratory Exam Respiratory Exam: NORMAL BREATHING PATTERN - Cardiovascular Exam Cardiovascular Exam: REGULAR RHYTHM - GI/Abdominal Exam GI & Abdominal Exam: Distended, Tenderness Assessment and Plan (1) Cyst of pancreas Assessment & Plan: metastases and tumor lysis causing significant abdominal pain and gastric outlet obstruction rec: NG decompression. NPO Status: Acute (2) Small cell lung cancer Status: Acute (3) Metastatic cancer Assessment & Plan: Pain management , palliation, treatment per Oncologist Dr Neely Status: Acute
--- NOTE | 2017-10-22 16:59 | CP.PCM.PN ---
Subjective - Date & Time of Evaluation Date of Evaluation: 10/22/17 Time of Evaluation: 11:00 - Subjective Subjective: PGY-[address] Carrizales. No acute events noted overnight. Patient seen in good spirits with family at bedside. Patient stated his abdominal pain has improved vastly since being placed on the fentanyl patch. NGT was in place suctioning yellow to bile colored fluid. He stated someone came to speak to him earlier today to discuss code status. Patient denies nausea, vomiting, denies flatus or bowel movements. Objective - Vital Signs/Intake and Output Vital Signs (last 24 hours): Temp Pulse Resp BP Pulse Ox 97.5 F L 111 H 20 124/78 94 L 10/22/17 16:30 10/22/17 16:30 10/22/17 16:30 10/22/17 16:30 10/22/17 16:30 Intake and Output: 10/22/17 10/22/17 06:59 18:59 Intake Total 2200 1200 Output Total 3500 1250 Balance -1300 -50 - Medications Medications: Current Medications Alprazolam (Xanax) 0.25 mg PO BID [facility] Stop: 10/28/17 10:01 Last Admin: 10/22/17 10:31 Dose: 0.25 mg Dexamethasone (Decadron) 4 mg PO DAILY [facility] Last Admin: 10/22/17 10:32 Dose: 4 mg Donepezil HCl (Aricept) 10 mg PO HS [facility] Last Admin: 10/21/17 21:48 Dose: 10 mg Enoxaparin Sodium (Lovenox) 40 mg SC DAILY [facility] Last Admin: 10/22/17 10:32 Dose: 40 mg Famotidine (Pepcid) 20 mg PO DAILY [facility] Last Admin: 10/22/17 10:32 Dose: 20 mg Fentanyl (Duragesic) 1 patch TD Q72H [facility] Last Admin: 10/21/17 11:50 Dose: 1 patch Hydromorphone HCl (Dilaudid) 1 mg IVP Q3H PRN PRN Reason: Pain, severe (8-10) Last Admin: 10/22/17 06:38 Dose: 1 mg Metronidazole (Flagyl) 500 mg in 100 mls @ 100 mls/hr IVPB Q8H [facility] PRN Reason: Protocol Last Admin: 10/22/17 15:00 Dose: 100 mls/hr Aztreonam 2 gm/ Sodium (Chloride) 100 mls @ 200 mls/hr IVPB Q8H [facility] PRN Reason: Protocol Last Admin: 10/22/17 14:23 Dose: 200 mls/hr Sodium Chloride (Sodium Chloride 0.9%) 1,000 mls @ 125 mls/hr IV .Q8H [facility] Last Admin: 10/22/17 16:45 Dose: Not Given Ondansetron HCl (Zofran Inj) 4 mg IVP Q6 PRN PRN Reason: Nausea/Vomiting - Labs Labs: 10/22/17 08:31 10/22/17 08:31 - Additional Findings Additional findings: - Constitutional Appears: Unkempt, Chronically Ill - Head Exam Head Exam: ATRAUMATIC, NORMOCEPHALIC - Eye Exam Eye Exam: EOMI, Normal appearance - ENT Exam ENT Exam: Mucous Membranes Moist - Neck Exam Neck Exam: Normal Inspection - Respiratory Exam Respiratory Exam: Decreased Breath Sounds, NORMAL BREATHING PATTERN. absent: Respiratory Distress - Cardiovascular Exam Cardiovascular Exam: Tachycardia, +S1, +S2 - GI/Abdominal Exam GI & Abdominal Exam: Distended, no Guarding, no tenderness on palpation Additional comments: - Neurological Exam Neurological Exam: Alert, Awake, CN II-XII Intact, Oriented x3 - Psychiatric Exam Psychiatric exam: Anxious - Skin Skin Exam: Normal Color, Warm Assessment and Plan - Assessment and Plan (Free Text) Assessment: This is a 62 year old male with history of recent diagnosis of small cell lung CA and metastatic spread to the liver, right kidney and now has lesions on the pancreas. He has been here before with abdominal pain secondary to pancreatitis and it has responded to conservative measures. 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 Improved aeration of the right middle lobe and right upper lobe secondary to a decrease in size of right perihilar mass and mediastinal adenopathy. Residual volume loss predominantly in the right middle lobe 2. Diffuse interstitial lung disease with fibrotic changes bilaterally. 3. Heterogeneous in density noted of the liver. This is less conspicuous than previous and suggests some improvement in metastatic involvement of the liver. 4. Pancreatitis suggested with the probable pseudocyst formation. Findings suggest decompression/erosion of one of the cysts into the stomach. CT abd/pelvis w/ contrast: * Findings strongly suspicious for pancreatic neoplasm. This has increased in size and extension when compared to the prior examination of 09/20/2017. There is encasement of the left renal vein. There is extension suspected along the left posterior para renal space. There is extension from the distal pancreatic tail. These all represent interval change when compared to the prior CT examination. There is dilatation and mural thickening of several loops of proximal jejunum as well as the 3rd duodenum. There is mural thickening of the posterior wall of the stomach. These findings may be related to inflammation from pancreatitis or may be related to neoplastic infiltration. Metastatic disease to the liver is noted. There is mural thickening of the distal transverse colon/ splenic flexure with pericolonic infiltration. Nonspecific colitis. This represents interval change from prior examination. Medications: Zofran 4mg IVP Q6H PRN Dilaudid 1mg IVP Q3H PRN Fentanyl 50mcg/hr 1 patch TD Q72H Aztreonam 2g IVPB Q8H (started 10/20) Dexamethasone 4mg PO QD Metronidazole 500mg IVP Q8H (started 10/20) Acute Pancreatitis, now has pancreatic mass - likely metastatic spread Surgery consult, Dr Donald * No surgical intervention at this time GI consult, Dr Armijo * rec: NG decompression, NPO pancreatic metastasis from small cell lung cancer causing gastric outlet obstruction likely inflammation from tumor necrosis given pain only with chemotherapy NPO, IVF Continue NGT output Medications: Zofran 4mg IVP Q6H PRN Dilaudid 1mg IVP Q3H PRN Fentanyl 50mcg/hr 1 patch TD Q72H Aztreonam 2g IVPB Q8H (started 10/20) Dexamethasone 4mg PO QD Metronidazole 500mg IVP Q8H (started 10/20) Gastric Outlet Obstruction Decompression/erosion of one of the pancreatic cysts into the stomach Continue NGT output Neutropenia/Thrombocytopenia 2/2 chemotherapy Growth factor Granix 480mcg SC QD (started 08/21/17) Neutropenic precautions Abx as listed above for empiric coverage Shortness of breath, Hypoxia Today breathing comfortably on room air and speaking in full sentences Tobacco use last cigarette was 09/17 History of Alzheimer's Donepezil 10mg PO HS History of Anxiety Xanax 0.25mg BID Prophylaxis SCD Lovenox 40mg SC QD Famotidine 20mg PO QD Code Status: Full Code
[2017-10-23] MEDS: HYDROmorphone 1 mg/ml ISec IVP PRN ×5 (01:15→21:40)
[2017-10-23] MEDS: Sodium Chloride 0.9% 1,000 ML IV SCH ×4 (04:30→23:40)
[2017-10-23] MEDS: metroNIDAZOLE IV 500 mg/100 ml 500 MG/100 ML BAG IVPB SCH ×3 (05:40→21:39)
[2017-10-23] MEDS: Aztreonam 2 GM in Sodium Chloride 0.9% 100 ML IVPB SCH ×3 (06:55→21:45)
--- NOTE | 2017-10-23 07:16 | CP.PCM.PN ---
Subjective - Date & Time of Evaluation Date of Evaluation: 10/23/17 Time of Evaluation: 07:13 - Subjective Subjective: Surgery Pt seen and examined. No acute events. Denies fever, nausea, BM, flatus. Pain controlled. NGT in place. Ambulates. Objective - Vital Signs/Intake and Output Vital Signs (last 24 hours): Temp Pulse Resp BP Pulse Ox 98.2 F 99 H 20 124/69 99 10/22/17 23:19 10/22/17 23:19 10/22/17 23:19 10/22/17 23:19 10/22/17 23:19 Intake and Output: 10/23/17 10/23/17 06:59 18:59 Intake Total 965 Output Total 2600 Balance -1635 - Medications Medications: Current Medications Alprazolam (Xanax) 0.25 mg PO BID [facility] Stop: 10/28/17 10:01 Last Admin: 10/22/17 17:07 Dose: 0.25 mg Dexamethasone (Decadron) 4 mg PO DAILY [facility] Last Admin: 10/22/17 10:32 Dose: 4 mg Donepezil HCl (Aricept) 10 mg PO HS [facility] Last Admin: 10/22/17 21:06 Dose: 10 mg Enoxaparin Sodium (Lovenox) 40 mg SC DAILY [facility] Last Admin: 10/22/17 10:32 Dose: 40 mg Famotidine (Pepcid) 20 mg PO DAILY [facility] Last Admin: 10/22/17 10:32 Dose: 20 mg Fentanyl (Duragesic) 1 patch TD Q72H [facility] Last Admin: 10/21/17 11:50 Dose: 1 patch Hydromorphone HCl (Dilaudid) 1 mg IVP Q3H PRN PRN Reason: Pain, severe (8-10) Last Admin: 10/23/17 01:15 Dose: 1 mg Metronidazole (Flagyl) 500 mg in 100 mls @ 100 mls/hr IVPB Q8H [facility] PRN Reason: Protocol Last Admin: 10/23/17 05:40 Dose: 100 mls/hr Aztreonam 2 gm/ Sodium (Chloride) 100 mls @ 200 mls/hr IVPB Q8H [facility] PRN Reason: Protocol Last Admin: 10/22/17 22:00 Dose: 200 mls/hr Sodium Chloride (Sodium Chloride 0.9%) 1,000 mls @ 125 mls/hr IV .Q8H [facility] Last Admin: 10/23/17 04:30 Dose: 125 mls/hr Ondansetron HCl (Zofran Inj) 4 mg IVP Q6 PRN PRN Reason: Nausea/Vomiting - Labs Labs: 10/22/17 08:31 10/22/17 08:31 - Constitutional Appears: No Acute Distress - Head Exam Head Exam: ATRAUMATIC, NORMAL INSPECTION, NORMOCEPHALIC - Eye Exam Eye Exam: EOMI, Normal appearance, PERRL Pupil Exam: NORMAL ACCOMODATION, PERRL - ENT Exam ENT Exam: Mucous Membranes Moist, Normal Exam - Neck Exam Neck Exam: Full ROM, Normal Inspection. absent: Lymphadenopathy - Respiratory Exam Respiratory Exam: Clear to Ausculation Bilateral, NORMAL BREATHING PATTERN - Cardiovascular Exam Cardiovascular Exam: Tachycardia, REGULAR RHYTHM, +S1, +S2. absent: Murmur - GI/Abdominal Exam GI & Abdominal Exam: Distended, Soft, Tenderness, Normal Bowel Sounds. absent: Firm, Guarding, Rigid, Organomegaly, Rebound - Extremities Exam Extremities Exam: Full ROM, Normal Capillary Refill, Normal Inspection. absent : Joint Swelling, Pedal Edema - Back Exam Back Exam: NORMAL INSPECTION - Neurological Exam Neurological Exam: Alert, Awake, CN II-XII Intact, Normal Gait, Oriented x3 - Psychiatric Exam Psychiatric exam: Normal Affect, Normal Mood - Skin Skin Exam: Dry, Intact, Normal Color, Warm Assessment and Plan - Assessment and Plan (Free Text) Assessment: 62M with stage 4 lung ca with pancreatitis/pancraetic mass and gastric outlet obstruction NGT 2L bilious /24hrs Plan: - NPO, IVF - Continue NGT output - Continue antibiotics - Consider Neutropenic precautions No surgical intervention at this time Will DW Dr. Donald
[2017-10-23 07:34] LABS: HEMOGLOBIN 8.9 g/dL (12.0-18.0); LYMPH # 0.2 K/uL (1.0-4.3); NEUT # 0.2 K/uL (1.8-7.0)
[2017-10-23 07:42] LABS: BASO % 0.8 % (0.0-2.0); EOS % 3.1 % (0.0-4.0); LYMPH % 53.2 % (20.0-40.0); MEAN CELL VOLUME 80.8 fL (80.0-94.0); MEAN CORPUSCULAR HEMOGLOBIN 27.6 pg (27.0-31.0); MEAN CORPUSCULAR HGB CONC 34.2 g/dL (33.0-37.0); MEAN PLATELET VOLUME 6.9 fL (7.2-11.7); MONO % 4.9 % (0.0-10.0); NRBC % 0.3 % (0.0-2.0); RBC 3.24 Mil/uL (4.40-5.90); RED CELL DISTRIBUTION WIDTH 18.4 % (11.5-14.5)
[2017-10-23 07:51] LABS: ALB/GLOB RATIO 0.9 (1.0-2.1); ALBUMIN 2.9 g/dL (3.5-5.0); ALT/SGPT 42 U/L (21-72); AST/SGOT 34 U/L (17-59); BLOOD UREA NITROGEN 21 mg/dL (9-20); GFR AFRICAN-AMERICAN > 60; GFR NON-AFRICAN AMERICAN > 60
[2017-10-23 07:54] LABS: WHITE BLOOD COUNT 0.4 K/uL (4.8-10.8)
--- NOTE | 2017-10-23 08:16 | CP.PCM.PN ---
Subjective - Date & Time of Evaluation Date of Evaluation: 10/23/17 Time of Evaluation: 08:13 - Subjective Subjective: F/U abdom pain. Still abdom pain, bloating. nausea Deneis melena, RB, CP, chills, hematuria, hemoptysis, SZ Objective - Vital Signs/Intake and Output Vital Signs (last 24 hours): Temp Pulse Resp BP Pulse Ox 98.2 F 99 H 20 124/69 99 10/22/17 23:19 10/22/17 23:19 10/22/17 23:19 10/22/17 23:19 10/22/17 23:19 Intake and Output: 10/23/17 10/23/17 06:59 18:59 Intake Total 965 Output Total 4200 Balance -3235 - Medications Medications: Current Medications Alprazolam (Xanax) 0.25 mg PO BID [facility] Stop: 10/28/17 10:01 Last Admin: 10/22/17 17:07 Dose: 0.25 mg Dexamethasone (Decadron) 4 mg PO DAILY [facility] Last Admin: 10/22/17 10:32 Dose: 4 mg Donepezil HCl (Aricept) 10 mg PO HS [facility] Last Admin: 10/22/17 21:06 Dose: 10 mg Enoxaparin Sodium (Lovenox) 40 mg SC DAILY [facility] Last Admin: 10/22/17 10:32 Dose: 40 mg Famotidine (Pepcid) 20 mg PO DAILY [facility] Last Admin: 10/22/17 10:32 Dose: 20 mg Fentanyl (Duragesic) 1 patch TD Q72H [facility] Last Admin: 10/21/17 11:50 Dose: 1 patch Hydromorphone HCl (Dilaudid) 1 mg IVP Q3H PRN PRN Reason: Pain, severe (8-10) Last Admin: 10/23/17 07:25 Dose: 1 mg Metronidazole (Flagyl) 500 mg in 100 mls @ 100 mls/hr IVPB Q8H [facility] PRN Reason: Protocol Last Admin: 10/23/17 05:40 Dose: 100 mls/hr Aztreonam 2 gm/ Sodium (Chloride) 100 mls @ 200 mls/hr IVPB Q8H [facility] PRN Reason: Protocol Last Admin: 10/23/17 06:55 Dose: 200 mls/hr Sodium Chloride (Sodium Chloride 0.9%) 1,000 mls @ 125 mls/hr IV .Q8H [facility] Last Admin: 10/23/17 04:30 Dose: 125 mls/hr Ondansetron HCl (Zofran Inj) 4 mg IVP Q6 PRN PRN Reason: Nausea/Vomiting - Labs Labs: 10/23/17 07:18 10/23/17 07:18 - Constitutional Appears: Non-toxic - ENT Exam Additional comments: NG t draining bile - Respiratory Exam Respiratory Exam: Rhonchi - Cardiovascular Exam Cardiovascular Exam: RRR - GI/Abdominal Exam GI & Abdominal Exam: Distended, Tenderness, Normal Bowel Sounds. absent: Rebound - Extremities Exam Extremities Exam: absent: Calf Tenderness - Neurological Exam Neurological Exam: Alert, Awake, Oriented x3 Assessment and Plan (1) Abdominal pain Assessment & Plan: Metastatic dis, panc mass, gastric obstruction- from mets. Status: Acute (2) Abnormal finding on CT scan Status: Acute (3) Renal metastasis Status: Acute (4) Small cell lung cancer Status: Acute (5) Abnormal LFTs Assessment & Plan: liver mets Status: Acute (6) HTN (hypertension) Status: Acute (7) Liver metastases Status: Acute (8) Pancreatitis Assessment & Plan: likely panc mets. Rec- pain management consult. Prognosis is poor. Status: Acute (9) Gastric outlet obstruction Assessment & Plan: metastatic disease. Treat with NG tube. Not a surgical candidate Status: Acute
[2017-10-23] MEDS: Enoxaparin 40 mg Syringe SC SCH (09:48)
[2017-10-23] MEDS ORDERED: HYDROmorphone 1 mg/ml ISec IVP STA (11:14)
--- NOTE | 2017-10-23 14:30 | CP.PCM.PN ---
Subjective - Date & Time of Evaluation Date of Evaluation: 10/22/17 Time of Evaluation: 20:00 - Subjective Subjective: Abdominal pain improving. Objective - Vital Signs/Intake and Output Vital Signs (last 24 hours): Temp Pulse Resp BP Pulse Ox 98.2 F 99 H 20 124/69 99 10/22/17 23:19 10/22/17 23:19 10/22/17 23:19 10/22/17 23:19 10/22/17 23:19 Intake and Output: 10/23/17 10/23/17 06:59 18:59 Intake Total 965 Output Total 4200 Balance -3235 - Medications Medications: Current Medications Alprazolam (Xanax) 0.25 mg PO BID [facility] Stop: 10/28/17 10:01 Last Admin: 10/23/17 09:48 Dose: 0.25 mg Dexamethasone (Decadron) 4 mg PO DAILY [facility] Last Admin: 10/23/17 09:48 Dose: 4 mg Donepezil HCl (Aricept) 10 mg PO HS [facility] Last Admin: 10/22/17 21:06 Dose: 10 mg Enoxaparin Sodium (Lovenox) 40 mg SC DAILY [facility] Last Admin: 10/23/17 09:48 Dose: 40 mg Famotidine (Pepcid) 20 mg PO DAILY [facility] Last Admin: 10/23/17 09:48 Dose: 20 mg Fentanyl (Duragesic) 1 patch TD Q72H [facility] Last Admin: 10/21/17 11:50 Dose: 1 patch Hydromorphone HCl (Dilaudid) 1 mg IVP Q3H PRN PRN Reason: Pain, severe (8-10) Last Admin: 10/23/17 14:21 Dose: 1 mg Metronidazole (Flagyl) 500 mg in 100 mls @ 100 mls/hr IVPB Q8H [facility] PRN Reason: Protocol Last Admin: 10/23/17 05:40 Dose: 100 mls/hr Aztreonam 2 gm/ Sodium (Chloride) 100 mls @ 200 mls/hr IVPB Q8H [facility] PRN Reason: Protocol Last Admin: 10/23/17 13:34 Dose: 200 mls/hr Sodium Chloride (Sodium Chloride 0.9%) 1,000 mls @ 125 mls/hr IV .Q8H [facility] Last Admin: 10/23/17 08:18 Dose: Not Given Ondansetron HCl (Zofran Inj) 4 mg IVP Q6 PRN PRN Reason: Nausea/Vomiting - Labs Labs: 10/23/17 07:18 10/23/17 07:18 - Head Exam Head Exam: ATRAUMATIC - Eye Exam Eye Exam: Normal appearance - ENT Exam ENT Exam: Mucous Membranes Dry - Respiratory Exam Respiratory Exam: NORMAL BREATHING PATTERN - Cardiovascular Exam Cardiovascular Exam: +S1, +S2 - GI/Abdominal Exam GI & Abdominal Exam: Normal Bowel Sounds Assessment and Plan (1) Neutropenia Assessment & Plan: secondary to chemotherapy neutropenic precautions growth factor support until ANC > 500 Status: Acute (2) Anemia Assessment & Plan: chronic disease and chemotherapy effect. Status: Acute (3) Pancreatitis Assessment & Plan: secondary to pancreatic metastasis and tumor necrosis inflammation Status: Acute (4) Small cell lung cancer Assessment & Plan: stage IV s/p chemotherapy pain control with bowel regimen imaging suggestive of response to chemotherapy outpatient treatment Status: Acute
--- NOTE | 2017-10-23 14:32 | CP.PCM.PN ---
Subjective - Date & Time of Evaluation Date of Evaluation: 10/23/17 Time of Evaluation: 13:00 - Subjective Subjective: Abdominal pain improving Objective - Vital Signs/Intake and Output Vital Signs (last 24 hours): Temp Pulse Resp BP Pulse Ox 98.2 F 99 H 20 124/69 99 10/22/17 23:19 10/22/17 23:19 10/22/17 23:19 10/22/17 23:19 10/22/17 23:19 Intake and Output: 10/23/17 10/23/17 06:59 18:59 Intake Total 965 Output Total 4200 Balance -3235 - Medications Medications: Current Medications Alprazolam (Xanax) 0.25 mg PO BID [facility] Stop: 10/28/17 10:01 Last Admin: 10/23/17 09:48 Dose: 0.25 mg Dexamethasone (Decadron) 4 mg PO DAILY [facility] Last Admin: 10/23/17 09:48 Dose: 4 mg Donepezil HCl (Aricept) 10 mg PO HS [facility] Last Admin: 10/22/17 21:06 Dose: 10 mg Enoxaparin Sodium (Lovenox) 40 mg SC DAILY [facility] Last Admin: 10/23/17 09:48 Dose: 40 mg Famotidine (Pepcid) 20 mg PO DAILY [facility] Last Admin: 10/23/17 09:48 Dose: 20 mg Fentanyl (Duragesic) 1 patch TD Q72H [facility] Last Admin: 10/21/17 11:50 Dose: 1 patch Hydromorphone HCl (Dilaudid) 1 mg IVP Q3H PRN PRN Reason: Pain, severe (8-10) Last Admin: 10/23/17 14:21 Dose: 1 mg Metronidazole (Flagyl) 500 mg in 100 mls @ 100 mls/hr IVPB Q8H [facility] PRN Reason: Protocol Last Admin: 10/23/17 05:40 Dose: 100 mls/hr Aztreonam 2 gm/ Sodium (Chloride) 100 mls @ 200 mls/hr IVPB Q8H [facility] PRN Reason: Protocol Last Admin: 10/23/17 13:34 Dose: 200 mls/hr Sodium Chloride (Sodium Chloride 0.9%) 1,000 mls @ 125 mls/hr IV .Q8H [facility] Last Admin: 10/23/17 08:18 Dose: Not Given Ondansetron HCl (Zofran Inj) 4 mg IVP Q6 PRN PRN Reason: Nausea/Vomiting - Labs Labs: 10/23/17 07:18 10/23/17 07:18 - Head Exam Head Exam: ATRAUMATIC - Eye Exam Eye Exam: Normal appearance - ENT Exam ENT Exam: Mucous Membranes Dry - Respiratory Exam Respiratory Exam: NORMAL BREATHING PATTERN - Cardiovascular Exam Cardiovascular Exam: +S1, +S2 - GI/Abdominal Exam GI & Abdominal Exam: Normal Bowel Sounds Assessment and Plan (1) Neutropenia Assessment & Plan: secondary to chemotherapy growth factor support neutropenic precautions Status: Acute (2) Anemia Assessment & Plan: chemotherapy effect and chronic disease Status: Acute (3) Pancreatitis Assessment & Plan: pancreatic metastasis tumor necrosis inflammation Status: Acute (4) Small cell lung cancer Assessment & Plan: stage IV s/p chemotherapy imaging suggest response to therapy pain control with bowel regimen outpatient treatment Status: Acute
--- NOTE | 2017-10-23 15:02 | CP.PCM.PN ---
Subjective - Date & Time of Evaluation Date of Evaluation: 10/23/17 Time of Evaluation: 10:30 - Subjective Subjective: PGY-[address] Carrizales. No acute events noted overnight. Patient seen at bedside with NGT to suction with bilious output. He stated he had intermittent abdominal pain but that it has improved since the fentanyl patch. He denies flatus, BM, bleeding, chest pain, fevers. Objective - Vital Signs/Intake and Output Vital Signs (last 24 hours): Temp Pulse Resp BP Pulse Ox 98.2 F 99 H 20 124/69 99 10/22/17 23:19 10/22/17 23:19 10/22/17 23:19 10/22/17 23:19 10/22/17 23:19 Intake and Output: 10/23/17 10/23/17 06:59 18:59 Intake Total 965 Output Total 4200 Balance -3235 - Medications Medications: Current Medications Alprazolam (Xanax) 0.25 mg PO BID [facility] Stop: 10/28/17 10:01 Last Admin: 10/23/17 09:48 Dose: 0.25 mg Dexamethasone (Decadron) 4 mg PO DAILY [facility] Last Admin: 10/23/17 09:48 Dose: 4 mg Donepezil HCl (Aricept) 10 mg PO HS [facility] Last Admin: 10/22/17 21:06 Dose: 10 mg Enoxaparin Sodium (Lovenox) 40 mg SC DAILY [facility] Last Admin: 10/23/17 09:48 Dose: 40 mg Famotidine (Pepcid) 20 mg PO DAILY [facility] Last Admin: 10/23/17 09:48 Dose: 20 mg Fentanyl (Duragesic) 1 patch TD Q72H [facility] Last Admin: 10/21/17 11:50 Dose: 1 patch Hydromorphone HCl (Dilaudid) 1 mg IVP Q3H PRN PRN Reason: Pain, severe (8-10) Last Admin: 10/23/17 14:21 Dose: 1 mg Metronidazole (Flagyl) 500 mg in 100 mls @ 100 mls/hr IVPB Q8H [facility] PRN Reason: Protocol Last Admin: 10/23/17 14:50 Dose: 100 mls/hr Aztreonam 2 gm/ Sodium (Chloride) 100 mls @ 200 mls/hr IVPB Q8H [facility] PRN Reason: Protocol Last Admin: 10/23/17 13:34 Dose: 200 mls/hr Sodium Chloride (Sodium Chloride 0.9%) 1,000 mls @ 125 mls/hr IV .Q8H [facility] Last Admin: 10/23/17 14:52 Dose: 125 mls/hr Ondansetron HCl (Zofran Inj) 4 mg IVP Q6 PRN PRN Reason: Nausea/Vomiting - Labs Labs: 10/23/17 07:18 10/23/17 07:18 - Constitutional Appears: Chronically Ill - Head Exam Head Exam: ATRAUMATIC, NORMAL INSPECTION Additional comments: NGT in place set to suction - Eye Exam Eye Exam: EOMI Pupil Exam: PERRL - ENT Exam ENT Exam: Mucous Membranes Moist - Neck Exam Neck Exam: Full ROM - Respiratory Exam Respiratory Exam: Decreased Breath Sounds, Wheezes, NORMAL BREATHING PATTERN. absent: Clear to Ausculation Bilateral - Cardiovascular Exam Cardiovascular Exam: Tachycardia, REGULAR RHYTHM, +S1, +S2. absent: Bradycardia - GI/Abdominal Exam GI & Abdominal Exam: Distended, Firm, Tenderness. absent: Guarding, Soft, Normal Bowel Sounds - Extremities Exam Extremities Exam: Full ROM, Normal Capillary Refill, Normal Inspection - Neurological Exam Neurological Exam: Alert, Awake, Oriented x3 - Psychiatric Exam Psychiatric exam: Anxious - Skin Skin Exam: Intact, Normal Color, Warm Assessment and Plan - Assessment and Plan (Free Text) Assessment: Assessment: This is a 62 year old male with history of recent diagnosis of small cell lung CA and metastatic spread to the liver, right kidney and now has lesions on the pancreas. He has been here before with abdominal pain secondary to pancreatitis and it has responded to conservative measures. 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 Improved aeration of the right middle lobe and right upper lobe secondary to a decrease in size of right perihilar mass and mediastinal adenopathy. Residual volume loss predominantly in the right middle lobe 2. Diffuse interstitial lung disease with fibrotic changes bilaterally. 3. Heterogeneous in density noted of the liver. This is less conspicuous than previous and suggests some improvement in metastatic involvement of the liver. 4. Pancreatitis suggested with the probable pseudocyst formation. Findings suggest decompression/erosion of one of the cysts into the stomach. CT abd/pelvis w/ contrast: * Findings strongly suspicious for pancreatic neoplasm. This has increased in size and extension when compared to the prior examination of 09/20/2017. There is encasement of the left renal vein. There is extension suspected along the left posterior para renal space. There is extension from the distal pancreatic tail. These all represent interval change when compared to the prior CT examination. There is dilatation and mural thickening of several loops of proximal jejunum as well as the 3rd duodenum. There is mural thickening of the posterior wall of the stomach. These findings may be related to inflammation from pancreatitis or may be related to neoplastic infiltration. Metastatic disease to the liver is noted. There is mural thickening of the distal transverse colon/ splenic flexure with pericolonic infiltration. Nonspecific colitis. This represents interval change from prior examination. Medications: Zofran 4mg IVP Q6H PRN Dilaudid 1mg IVP Q3H PRN Fentanyl 75mcg/hr 1 patch TD Q72H Aztreonam 2g IVPB Q8H (started 10/20) Dexamethasone 4mg IV QD Metronidazole 500mg IVP Q8H (started 10/20) Acute Pancreatitis, now has pancreatic mass - likely metastatic spread Surgery consult, Dr Donald * No surgical intervention at this time GI consult, Dr Armijo * rec: NG decompression, NPO pancreatic metastasis from small cell lung cancer causing gastric outlet obstruction likely inflammation from tumor necrosis given pain only with chemotherapy NPO, IVF Continue NGT output Medications: Zofran 4mg IVP Q6H PRN Dilaudid 1mg IVP Q3H PRN Fentanyl 50mcg/hr 1 patch TD Q72H Aztreonam 2g IVPB Q8H (started 10/20) Dexamethasone 4mg PO QD Metronidazole 500mg IVP Q8H (started 10/20) Gastric Outlet Obstruction Decompression/erosion of one of the pancreatic cysts into the stomach Continue NGT output * NGT clamped by surgery 10/23/17 Neutropenia/Thrombocytopenia 2/2 chemotherapy Growth factor Granix 480mcg SC QD (started 08/21/17) Neutropenic precautions Abx as listed above for empiric coverage Shortness of breath, Hypoxia Today breathing comfortably on room air and speaking in full sentences Tobacco use last cigarette was 09/17 History of Alzheimer's Donepezil 10mg PO HS History of Anxiety Xanax 0.25mg BID Prophylaxis SCD Lovenox 40mg SC QD Famotidine 20mg PO QD Clay switched to condom catheter 10/23/17 Code Status: Full Code
[2017-10-23] MEDS: Dexamethasone 4 mg/1 ml IVP SCH (15:56)
[2017-10-24] MEDS: Sodium Chloride 0.9% 1,000 ML IV SCH ×5 (02:00→23:45)
[2017-10-24] MEDS: metroNIDAZOLE IV 500 mg/100 ml 500 MG/100 ML BAG IVPB SCH ×3 (05:00→21:08)
[2017-10-24] MEDS: HYDROmorphone 1 mg/ml ISec IVP PRN ×4 (05:45→17:27)
[2017-10-24] MEDS: Aztreonam 2 GM in Sodium Chloride 0.9% 100 ML IVPB SCH ×3 (06:10→23:00)
[2017-10-24 07:42] LABS: BASO % 0.3 % (0.0-2.0); EOS % 0.3 % (0.0-4.0); HEMOGLOBIN 8.6 g/dL (12.0-18.0); LYMPH # 0.2 K/uL (1.0-4.3); LYMPH % 69.2 % (20.0-40.0); MEAN CELL VOLUME 81.6 fL (80.0-94.0); MEAN CORPUSCULAR HEMOGLOBIN 27.5 pg (27.0-31.0); MEAN CORPUSCULAR HGB CONC 33.7 g/dL (33.0-37.0); MEAN PLATELET VOLUME 7.3 fL (7.2-11.7); MONO % 10.2 % (0.0-10.0); NEUT # 0.1 K/uL (1.8-7.0); NRBC % 1.7 % (0.0-2.0); RBC 3.11 Mil/uL (4.40-5.90); RED CELL DISTRIBUTION WIDTH 18.7 % (11.5-14.5)
[2017-10-24 07:48] LABS: WHITE BLOOD COUNT 0.3 K/uL (4.8-10.8)
[2017-10-24 08:12] LABS: ALB/GLOB RATIO 0.9 (1.0-2.1); ALBUMIN 2.8 g/dL (3.5-5.0); ALT/SGPT 32 U/L (21-72); AST/SGOT 33 U/L (17-59); BLOOD UREA NITROGEN 18 mg/dL (9-20); GFR AFRICAN-AMERICAN > 60; GFR NON-AFRICAN AMERICAN > 60; LIPASE 64 U/L (23-300)
--- NOTE | 2017-10-24 09:34 | CP.PCM.PCO ---
Physician Communication Note - Physician Communication Note Physician Communication Note: Family meeting tomorrow at 12 pm.
[2017-10-24] MEDS: Dexamethasone 4 mg/1 ml IVP SCH (09:47)
[2017-10-24] MEDS: Enoxaparin 40 mg Syringe SC SCH (09:47)
--- NOTE | 2017-10-24 12:54 | CP.PCM.PN ---
Subjective - Date & Time of Evaluation Date of Evaluation: 10/24/17 Time of Evaluation: 12:00 - Subjective Subjective: Feeling better, less pain NGT removed. Objective - Vital Signs/Intake and Output Vital Signs (last 24 hours): Temp Pulse Resp BP Pulse Ox 97.9 F 110 H 20 130/77 95 10/24/17 08:25 10/24/17 08:25 10/24/17 08:25 10/24/17 08:25 10/24/17 08:25 Intake and Output: 10/24/17 10/24/17 06:59 18:59 Intake Total 950 Output Total 900 Balance 50 - Medications Medications: Current Medications Alprazolam (Xanax) 0.25 mg PO BID [facility] Stop: 10/28/17 10:01 Last Admin: 10/24/17 09:47 Dose: 0.25 mg Dexamethasone (Decadron Inj) 4 mg IVP DAILY [facility] Last Admin: 10/24/17 09:47 Dose: 4 mg Donepezil HCl (Aricept) 10 mg PO HS [facility] Last Admin: 10/23/17 21:50 Dose: 10 mg Enoxaparin Sodium (Lovenox) 40 mg SC DAILY [facility] Last Admin: 10/24/17 09:47 Dose: 40 mg Famotidine (Pepcid) 20 mg PO DAILY [facility] Last Admin: 10/24/17 09:47 Dose: 20 mg Fentanyl (Duragesic) 1 patch TD Q72H [facility] Last Admin: 10/23/17 15:55 Dose: 1 patch Hydromorphone HCl (Dilaudid) 2 mg IVP Q3H PRN PRN Reason: Pain, severe (8-10) Last Admin: 10/24/17 12:30 Dose: 2 mg Metronidazole (Flagyl) 500 mg in 100 mls @ 100 mls/hr IVPB Q8H [facility] PRN Reason: Protocol Last Admin: 10/24/17 05:00 Dose: 100 mls/hr Aztreonam 2 gm/ Sodium (Chloride) 100 mls @ 200 mls/hr IVPB Q8H [facility] PRN Reason: Protocol Last Admin: 10/24/17 06:10 Dose: 200 mls/hr Sodium Chloride (Sodium Chloride 0.9%) 1,000 mls @ 125 mls/hr IV .Q8H [facility] Last Admin: 10/24/17 12:26 Dose: 125 mls/hr Ondansetron HCl (Zofran Inj) 4 mg IVP Q6 PRN PRN Reason: Nausea/Vomiting - Labs Labs: 10/24/17 07:16 10/24/17 07:15 - Head Exam Head Exam: ATRAUMATIC - Eye Exam Eye Exam: Normal appearance - ENT Exam ENT Exam: Mucous Membranes Dry - Respiratory Exam Respiratory Exam: NORMAL BREATHING PATTERN - Cardiovascular Exam Cardiovascular Exam: +S1, +S2 - GI/Abdominal Exam GI & Abdominal Exam: Normal Bowel Sounds Assessment and Plan (1) Neutropenia Assessment & Plan: secondary to chemotherapy Granix daily until ANC > 500 neutropenic precautions Status: Acute (2) Anemia Assessment & Plan: chronic disease, chemotherapy effect Status: Acute (3) Pancreatitis Assessment & Plan: metastasis to pancreas tumor necrosis involving pancreas Status: Acute (4) 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
--- NOTE | 2017-10-24 13:41 | CP.PCM.PN ---
Addendum entered and electronically signed by Duke West 10/24/17 13:52: Patient reported having bowel movement today. NGT was removed by surgery and clear liquid will be started. Original Note: <Duke West R - Last Filed: 10/24/17 13:35> Subjective - Date & Time of Evaluation Date of Evaluation: 10/24/17 Time of Evaluation: 10:15 - Subjective Subjective: PGY-[address] Gale. No acute events noted overnight. Neighbor also at bedside. Patient was drowsy as he had just received dilaudid. He stated he still has abdominal pain and that the pain kicks in about an hour before his next push of dilaudid is available. He said his main concern is the pain. He denied bowel movement and passing flatus. Denied other symptoms. Objective - Vital Signs/Intake and Output Vital Signs (last 24 hours): Temp Pulse Resp BP Pulse Ox 97.9 F 110 H 20 130/77 95 10/24/17 08:25 10/24/17 08:25 10/24/17 08:25 10/24/17 08:25 10/24/17 08:25 Intake and Output: 10/24/17 10/24/17 06:59 18:59 Intake Total 950 Output Total 900 Balance 50 - Medications Medications: Current Medications Alprazolam (Xanax) 0.25 mg PO BID [facility] Stop: 10/28/17 10:01 Last Admin: 10/24/17 09:47 Dose: 0.25 mg Dexamethasone (Decadron Inj) 4 mg IVP DAILY [facility] Last Admin: 10/24/17 09:47 Dose: 4 mg Donepezil HCl (Aricept) 10 mg PO HS [facility] Last Admin: 10/23/17 21:50 Dose: 10 mg Enoxaparin Sodium (Lovenox) 40 mg SC DAILY [facility] Last Admin: 10/24/17 09:47 Dose: 40 mg Famotidine (Pepcid) 20 mg PO DAILY [facility] Last Admin: 10/24/17 09:47 Dose: 20 mg Fentanyl (Duragesic) 1 patch TD Q72H [facility] Last Admin: 10/23/17 15:55 Dose: 1 patch Hydromorphone HCl (Dilaudid) 2 mg IVP Q3H PRN PRN Reason: Pain, severe (8-10) Last Admin: 10/24/17 12:30 Dose: 2 mg Metronidazole (Flagyl) 500 mg in 100 mls @ 100 mls/hr IVPB Q8H [facility] PRN Reason: Protocol Last Admin: 10/24/17 05:00 Dose: 100 mls/hr Aztreonam 2 gm/ Sodium (Chloride) 100 mls @ 200 mls/hr IVPB Q8H [facility] PRN Reason: Protocol Last Admin: 10/24/17 06:10 Dose: 200 mls/hr Sodium Chloride (Sodium Chloride 0.9%) 1,000 mls @ 125 mls/hr IV .Q8H [facility] Last Admin: 10/24/17 12:26 Dose: 125 mls/hr Potassium Chloride (Potassium Chloride 20 Meq/100 Ml) 20 meq in 100 mls @ 50 mls/hr IVPB ONCE ONE Stop: 10/24/17 15:34 Ondansetron HCl (Zofran Inj) 4 mg IVP Q6 PRN PRN Reason: Nausea/Vomiting - Labs Labs: 10/24/17 07:16 10/24/17 07:15 - Additional Findings Additional findings: - Constitutional Appears: Chronically Ill - Head Exam Head Exam: ATRAUMATIC, NORMAL INSPECTION Additional comments: NGT clamped - Eye Exam Eye Exam: EOMI Pupil Exam: PERRL - ENT Exam ENT Exam: Mucous Membranes Moist - Neck Exam Neck Exam: Full ROM - Respiratory Exam Respiratory Exam: Decreased Breath Sounds, Wheezes, NORMAL BREATHING PATTERN. absent: Clear to Ausculation Bilateral - Cardiovascular Exam Cardiovascular Exam: Tachycardia, REGULAR RHYTHM, +S1, +S2. absent: Bradycardia - GI/Abdominal Exam GI & Abdominal Exam: Distended, Firm, Tenderness. absent: Guarding, Soft, Normal Bowel Sounds - Extremities Exam Extremities Exam: Full ROM, Normal Capillary Refill, Normal Inspection - Neurological Exam Neurological Exam: Alert, Awake, Oriented x3 - Psychiatric Exam Psychiatric exam: Anxious - Skin Skin Exam: Intact, Normal Color, Warm Assessment and Plan - Assessment and Plan (Free Text) Assessment: Assessment: This is a 62 year old male with history of recent diagnosis of small cell lung CA and metastatic spread to the liver, right kidney and now has lesions on the pancreas. He has been here before with abdominal pain secondary to pancreatitis and it has responded to conservative measures. 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 Improved aeration of the right middle lobe and right upper lobe secondary to a decrease in size of right perihilar mass and mediastinal adenopathy. Residual volume loss predominantly in the right middle lobe 2. Diffuse interstitial lung disease with fibrotic changes bilaterally. 3. Heterogeneous in density noted of the liver. This is less conspicuous than previous and suggests some improvement in metastatic involvement of the liver. 4. Pancreatitis suggested with the probable pseudocyst formation. Findings suggest decompression/erosion of one of the cysts into the stomach. CT abd/pelvis w/ contrast: * Findings strongly suspicious for pancreatic neoplasm. This has increased in size and extension when compared to the prior examination of 09/20/2017. There is encasement of the left renal vein. There is extension suspected along the left posterior para renal space. There is extension from the distal pancreatic tail. These all represent interval change when compared to the prior CT examination. There is dilatation and mural thickening of several loops of proximal jejunum as well as the 3rd duodenum. There is mural thickening of the posterior wall of the stomach. These findings may be related to inflammation from pancreatitis or may be related to neoplastic infiltration. Metastatic disease to the liver is noted. There is mural thickening of the distal transverse colon/ splenic flexure with pericolonic infiltration. Nonspecific colitis. This represents interval change from prior examination. Medications: Zofran 4mg IVP Q6H PRN Dilaudid 2mg IVP Q3H PRN Fentanyl 75mcg/hr 1 patch TD Q72H Aztreonam 2g IVPB Q8H (started 10/20) Dexamethasone 4mg IV QD Metronidazole 500mg IVP Q8H (started 10/20) Acute Pancreatitis, now has pancreatic mass - likely metastatic spread Surgery consult, Dr Donald * No surgical intervention at this time GI consult, Dr Armijo * rec: NG decompression, NPO pancreatic metastasis from small cell lung cancer causing gastric outlet obstruction likely inflammation from tumor necrosis given pain only with chemotherapy NPO, IVF Continue NGT output Medications: Zofran 4mg IVP Q6H PRN Dilaudid 1mg IVP Q3H PRN Fentanyl 50mcg/hr 1 patch TD Q72H Aztreonam 2g IVPB Q8H (started 10/20) Dexamethasone 4mg IV QD Metronidazole 500mg IVP Q8H (started 10/20) Gastric Outlet Obstruction Decompression/erosion of one of the pancreatic cysts into the stomach Continue NGT output * NGT clamped by surgery 10/23/17 Will consider starting PPN Neutropenia/Thrombocytopenia 2/2 chemotherapy Growth factor Granix 480mcg SC QD (started 08/21/17) * Granix daily until ANC > 500 Neutropenic precautions Abx as listed above for empiric coverage Shortness of breath, Hypoxia Today breathing comfortably on room air and speaking in full sentences Tobacco use last cigarette was 09/17 History of Alzheimer's Donepezil 10mg PO HS History of Anxiety Xanax 0.25mg BID Prophylaxis SCD Lovenox 40mg SC QD Famotidine 20mg PO QD Clay switched to condom catheter 10/23/17 Code Status: Full Code. Family meeting 10/25/17 with palliative. <Juan Carlos Gale - Last Filed: 10/29/17 11:52> Objective - Vital Signs/Intake and Output Vital Signs (last 24 hours): Temp Pulse Resp BP Pulse Ox 98.3 F 102 H 24 83/49 L 97 10/29/17 08:00 10/29/17 09:11 10/29/17 09:11 10/29/17 09:11 10/29/17 09:11 Intake and Output: 10/29/17 10/29/17 06:59 18:59 Intake Total 978.8 168.7 Output Total 1360 200 Balance -381.2 -31.3 - Medications Medications: Current Medications Albuterol/Ipratropium (Duoneb 3 Mg/0.5 Mg (3 Ml) Ud) 3 ml INH RQ6 [facility] Last Admin: 10/29/17 08:12 Dose: 3 ml Ascorbic Acid (Vitamin C 500 Mg Tab) 500 mg PO DAILY [facility] Last Admin: 10/29/17 10:56 Dose: 500 mg Donepezil HCl (Aricept) 10 mg PO HS [facility] Last Admin: 10/28/17 21:09 Dose: 10 mg Famotidine (Pepcid) 20 mg PO DAILY [facility] Last Admin: 10/29/17 10:56 Dose: 20 mg Folic Acid (Folic Acid) 1 mg PO DAILY [facility] Last Admin: 10/29/17 10:56 Dose: 1 mg Hydrocortisone Sodium Succinate (Solu-Cortef) 50 mg IV Q6H [facility] Last Admin: 10/29/17 06:00 Dose: 50 mg Metronidazole (Flagyl) 500 mg in 100 mls @ 100 mls/hr IVPB Q8H [facility] PRN Reason: Protocol Last Admin: 10/29/17 05:00 Dose: 100 mls/hr Aztreonam 2 gm/ Sodium (Chloride) 100 mls @ 200 mls/hr IVPB Q8H [facility] PRN Reason: Protocol Last Admin: 10/29/17 06:00 Dose: 200 mls/hr Vancomycin/Sodium Chloride (Vancomycin 1 Gm/Ns 200 Ml) 1 gm in 200 mls @ 133 mls/hr IVPB Q12H [facility] PRN Reason: Protocol Stop: 11/01/17 00:31 Last Admin: 10/28/17 23:45 Dose: 133 mls/hr Norepinephrine Bitartrate 4 mg (/ Dextrose) 254 mls @ 15.24 mls/hr IV .[id number] PRN; Protocol; 4 MCG/MIN PRN Reason: TITRATE PER MD ORDER Last Titration: 10/28/17 19:20 Dose: 2 mcg/min, 7.62 mls/hr Midazolam HCl 100 mg/ Dextrose 100 mls @ 1.9 mls/hr IV .Q24H [facility]; 0.02 MG/KG/HR PRN Reason: Protocol Last Titration: 10/29/17 08:04 Dose: 0.03 mg/kg/hr, 3.5 mls/hr Fentanyl Citrate 2,500 mcg/ (Sodium Chloride) 250 mls @ 19.05 mls/hr IV .Q13H8M PRN; 2 MCG/KG/HR PRN Reason: Protocol Last Admin: 10/29/17 09:00 Dose: 8 mcg/kg/hr, 76.2 mls/hr Insulin Aspart (Novolog) 0 unit SC Q6H [facility] PRN Reason: Protocol Last Admin: 10/29/17 06:41 Dose: Not Given Lactulose (Enulose) 20 gm NG Q8H PRN PRN Reason: Constipation Moxifloxacin HCl (Avelox) 400 mg NG DAILY [facility] PRN Reason: Protocol Stop: 10/31/17 10:01 Last Admin: 10/29/17 10:56 Dose: 400 mg Multivitamins (Hexavitamin) 1 tab PO DAILY [facility] Last Admin: 10/29/17 11:00 Dose: 1 tab Ondansetron HCl (Zofran Inj) 4 mg IVP Q6 PRN PRN Reason: Nausea/Vomiting Vitamin A (Vitamin A&D) 0 applic TP Q8 PRN PRN Reason: Dry skin Last Admin: 10/27/17 17:02 Dose: 1 applic Zinc Sulfate (Zinc Sulfate 220 Mg Cap) 220 mg PO DAILY [facility] Last Admin: 10/29/17 10:56 Dose: 220 mg - Labs Labs: 10/29/17 06:28 10/29/17 06:23 PT 17.7 SECONDS (9.7-12.2) H 10/29/17 11:22 INR 1.6 10/29/17 11:22 APTT 25 SECONDS (21-34) 10/29/17 11:22 Attending/Attestation - Attestation I have personally seen and examined this patient.: Yes I have fully participated in the care of the patient.: Yes I have reviewed all pertinent clinical information, including history, physical exam and plan: Yes Notes (Text): Patient was seen and examined by me Discussed with the resident and I agree with the documentation of the resident' s assessment and the plan
--- NOTE | 2017-10-24 18:17 | CP.PCM.PN ---
Subjective - Date & Time of Evaluation Date of Evaluation: 10/24/17 Time of Evaluation: 11:00 - Subjective Subjective: General Surgery Progress Note for Dr. Donald Pt seen and examined this AM at bedside denies abdominal pain. Tolerating clear liquids. Ambulating, reports multiple bowel movements. NGT removed during rounds. Objective - Vital Signs/Intake and Output Vital Signs (last 24 hours): Temp Pulse Resp BP Pulse Ox 97.3 F L 112 H 20 108/70 95 10/24/17 16:30 10/24/17 16:30 10/24/17 16:30 10/24/17 16:30 10/24/17 16:30 Intake and Output: 10/24/17 10/24/17 06:59 18:59 Intake Total 950 100 Output Total 900 Balance 50 100 - Medications Medications: Current Medications Alprazolam (Xanax) 0.25 mg PO BID [facility] Stop: 10/28/17 10:01 Last Admin: 10/24/17 17:22 Dose: 0.25 mg Dexamethasone (Decadron Inj) 4 mg IVP DAILY [facility] Last Admin: 10/24/17 09:47 Dose: 4 mg Donepezil HCl (Aricept) 10 mg PO HS [facility] Last Admin: 10/23/17 21:50 Dose: 10 mg Enoxaparin Sodium (Lovenox) 40 mg SC DAILY [facility] Last Admin: 10/24/17 09:47 Dose: 40 mg Famotidine (Pepcid) 20 mg PO DAILY [facility] Last Admin: 10/24/17 09:47 Dose: 20 mg Fentanyl (Duragesic) 1 patch TD Q72H [facility] Last Admin: 10/23/17 15:55 Dose: 1 patch Hydromorphone HCl (Dilaudid) 2 mg IVP Q3H PRN PRN Reason: Pain, severe (8-10) Last Admin: 10/24/17 17:27 Dose: 2 mg Metronidazole (Flagyl) 500 mg in 100 mls @ 100 mls/hr IVPB Q8H [facility] PRN Reason: Protocol Last Admin: 10/24/17 13:38 Dose: 100 mls/hr Aztreonam 2 gm/ Sodium (Chloride) 100 mls @ 200 mls/hr IVPB Q8H [facility] PRN Reason: Protocol Last Admin: 10/24/17 13:34 Dose: 200 mls/hr Sodium Chloride (Sodium Chloride 0.9%) 1,000 mls @ 125 mls/hr IV .Q8H [facility] Last Admin: 10/24/17 17:30 Dose: Not Given Ondansetron HCl (Zofran Inj) 4 mg IVP Q6 PRN PRN Reason: Nausea/Vomiting - Labs Labs: 10/24/17 07:16 10/24/17 07:15 - Constitutional Appears: Non-toxic, Toxic - Head Exam Head Exam: ATRAUMATIC, NORMOCEPHALIC - Eye Exam Eye Exam: EOMI, Normal appearance - ENT Exam ENT Exam: Mucous Membranes Moist, Normal Exam - Respiratory Exam Respiratory Exam: NORMAL BREATHING PATTERN - Cardiovascular Exam Cardiovascular Exam: +S1, +S2 - GI/Abdominal Exam GI & Abdominal Exam: Distended, Soft. absent: Firm, Guarding, Rigid, Tenderness - Neurological Exam Neurological Exam: Alert, Awake - Psychiatric Exam Psychiatric exam: Normal Affect, Normal Mood - Skin Skin Exam: Dry, Warm Assessment and Plan - Assessment and Plan (Free Text) Assessment: 62M with resolved pancreatitis Advance diet as tolerated Continue managment per medical team No surgical intervention at this time D/W Dr. Odilon Ng PGY2
[2017-10-25] MEDS: HYDROmorphone 1 mg/ml ISec IVP PRN ×6 (01:03→21:04)
[2017-10-25] MEDS: metroNIDAZOLE IV 500 mg/100 ml 500 MG/100 ML BAG IVPB SCH ×3 (05:18→21:05)
[2017-10-25] MEDS: Aztreonam 2 GM in Sodium Chloride 0.9% 100 ML IVPB SCH ×3 (06:35→22:16)
[2017-10-25] MEDS: Sodium Chloride 0.9% 1,000 ML IV SCH ×2 (06:37→09:03)
[2017-10-25 07:48] LABS: BASO % 0.1 % (0.0-2.0); EOS % 0.3 % (0.0-4.0); HEMOGLOBIN 9.4 g/dL (12.0-18.0); LYMPH # 0.4 K/uL (1.0-4.3); LYMPH % 52.2 % (20.0-40.0); MEAN CELL VOLUME 80.4 fL (80.0-94.0); MEAN CORPUSCULAR HEMOGLOBIN 28.1 pg (27.0-31.0); MEAN CORPUSCULAR HGB CONC 34.9 g/dL (33.0-37.0); MONO # 0.1 K/uL (0.0-0.8); MONO % 17.9 % (0.0-10.0); NEUT # 0.2 K/uL (1.8-7.0); NEUT % 29.5 % (50.0-75.0); RBC 3.34 Mil/uL (4.40-5.90); RED CELL DISTRIBUTION WIDTH 18.5 % (11.5-14.5)
[2017-10-25 07:52] LABS: WHITE BLOOD COUNT 0.8 K/uL (4.8-10.8)
[2017-10-25 08:38] LABS: ALBUMIN 2.9 g/dL (3.5-5.0); ALT/SGPT 37 U/L (21-72); AST/SGOT 31 U/L (17-59); BLOOD UREA NITROGEN 17 mg/dL (9-20); CALCIUM 8.1 mg/dl (8.6-10.4); GFR AFRICAN-AMERICAN > 60; GFR NON-AFRICAN AMERICAN > 60
[2017-10-25] MEDS: Dexamethasone 4 mg/1 ml IVP SCH (10:47)
[2017-10-25] MEDS: Enoxaparin 40 mg Syringe SC SCH (10:47)
--- NOTE | 2017-10-25 12:46 | CP.PCM.PN ---
Subjective - Date & Time of Evaluation Date of Evaluation: 10/25/17 Time of Evaluation: 11:30 - Subjective Subjective: F/U abdom pain. Reprots less pain. Feels ok with NG t reemoved Denies fever, chills, SZ, RB, melena, hemoptysis Objective - Vital Signs/Intake and Output Vital Signs (last 24 hours): Temp Pulse Resp BP Pulse Ox 97.7 F 88 20 108/68 95 10/25/17 08:40 10/25/17 08:40 10/25/17 08:40 10/25/17 08:40 10/25/17 08:40 Intake and Output: 10/25/17 10/25/17 06:59 18:59 Intake Total 2490 Balance 2490 - Medications Medications: Current Medications Alprazolam (Xanax) 0.25 mg PO BID [facility] Stop: 10/28/17 10:01 Last Admin: 10/25/17 10:47 Dose: 0.25 mg Dexamethasone (Decadron Inj) 4 mg IVP DAILY [facility] Last Admin: 10/25/17 10:47 Dose: 4 mg Donepezil HCl (Aricept) 10 mg PO HS [facility] Last Admin: 10/24/17 21:07 Dose: 10 mg Enoxaparin Sodium (Lovenox) 40 mg SC DAILY [facility] Last Admin: 10/25/17 10:47 Dose: 40 mg Famotidine (Pepcid) 20 mg PO DAILY [facility] Last Admin: 10/25/17 10:47 Dose: 20 mg Fentanyl (Duragesic) 1 patch TD Q72H [facility] Last Admin: 10/23/17 15:55 Dose: 1 patch Hydromorphone HCl (Dilaudid) 1 mg IVP Q3H PRN PRN Reason: Pain, severe (8-10) Last Admin: 10/25/17 10:46 Dose: 1 mg Metronidazole (Flagyl) 500 mg in 100 mls @ 100 mls/hr IVPB Q8H [facility] PRN Reason: Protocol Last Admin: 10/25/17 05:18 Dose: 100 mls/hr Aztreonam 2 gm/ Sodium (Chloride) 100 mls @ 200 mls/hr IVPB Q8H [facility] PRN Reason: Protocol Last Admin: 10/25/17 06:35 Dose: 200 mls/hr Ondansetron HCl (Zofran Inj) 4 mg IVP Q6 PRN PRN Reason: Nausea/Vomiting - Labs Labs: 10/25/17 07:22 10/25/17 07:22 - Constitutional Appears: Non-toxic - Neck Exam Neck Exam: absent: Tenderness - Respiratory Exam Respiratory Exam: Rhonchi - Cardiovascular Exam Cardiovascular Exam: RRR - GI/Abdominal Exam GI & Abdominal Exam: Distended, Tenderness, Normal Bowel Sounds. absent: Guarding, Rebound - Extremities Exam Extremities Exam: absent: Calf Tenderness - Neurological Exam Neurological Exam: Alert, Awake, Oriented x3 Assessment and Plan (1) Abdominal pain Assessment & Plan: mets Status: Acute (2) Abnormal finding on CT scan Assessment & Plan: GOO- NG t removed Status: Acute (3) Renal metastasis Status: Acute (4) Small cell lung cancer Status: Acute (5) Abnormal LFTs Status: Acute (6) HTN (hypertension) Status: Acute (7) Liver metastases Status: Acute (8) Pancreatitis Status: Acute (9) Gastric outlet obstruction Status: Acute
--- NOTE | 2017-10-25 13:45 | CP.PCM.PN ---
Subjective - Date & Time of Evaluation Date of Evaluation: 10/25/17 Time of Evaluation: 11:00 - Subjective Subjective: PGY-[address] Gale. No acute events noted overnight. Patient having bowel movements now. Ambulates to bathroom but still weak. Breathing comfortably on NC. Abdominal pain controlled on pain control regiment. Did not have other complaints. Had general questions regarding his conditions which were answered. Objective - Vital Signs/Intake and Output Vital Signs (last 24 hours): Temp Pulse Resp BP Pulse Ox 97.7 F 88 20 108/68 95 10/25/17 08:40 10/25/17 08:40 10/25/17 08:40 10/25/17 08:40 10/25/17 08:40 Intake and Output: 10/25/17 10/25/17 06:59 18:59 Intake Total 2490 Balance 2490 - Medications Medications: Current Medications Alprazolam (Xanax) 0.25 mg PO BID [facility] Stop: 10/28/17 10:01 Last Admin: 10/25/17 10:47 Dose: 0.25 mg Dexamethasone (Decadron Inj) 4 mg IVP DAILY [facility] Last Admin: 10/25/17 10:47 Dose: 4 mg Donepezil HCl (Aricept) 10 mg PO HS [facility] Last Admin: 10/24/17 21:07 Dose: 10 mg Enoxaparin Sodium (Lovenox) 40 mg SC DAILY [facility] Last Admin: 10/25/17 10:47 Dose: 40 mg Famotidine (Pepcid) 20 mg PO DAILY [facility] Last Admin: 10/25/17 10:47 Dose: 20 mg Fentanyl (Duragesic) 1 patch TD Q72H [facility] Last Admin: 10/23/17 15:55 Dose: 1 patch Hydromorphone HCl (Dilaudid) 1 mg IVP Q3H PRN PRN Reason: Pain, severe (8-10) Last Admin: 10/25/17 10:46 Dose: 1 mg Metronidazole (Flagyl) 500 mg in 100 mls @ 100 mls/hr IVPB Q8H [facility] PRN Reason: Protocol Last Admin: 10/25/17 13:22 Dose: 100 mls/hr Aztreonam 2 gm/ Sodium (Chloride) 100 mls @ 200 mls/hr IVPB Q8H [facility] PRN Reason: Protocol Last Admin: 10/25/17 06:35 Dose: 200 mls/hr Potassium Chloride (Potassium Chloride 20 Meq/100 Ml) 20 meq in 100 mls @ 50 mls/hr IVPB ONCE ONE Stop: 10/25/17 15:35 Ondansetron HCl (Zofran Inj) 4 mg IVP Q6 PRN PRN Reason: Nausea/Vomiting - Labs Labs: 10/25/17 07:22 10/25/17 07:22 - Additional Findings Additional findings: - Constitutional Appears: Chronically Ill - Head Exam Head Exam: ATRAUMATIC, NORMAL INSPECTION Additional comments: NGT removed - Eye Exam Eye Exam: EOMI Pupil Exam: PERRL - ENT Exam ENT Exam: Mucous Membranes Moist - Neck Exam Neck Exam: Full ROM - Respiratory Exam Respiratory Exam: Decreased Breath Sounds, Wheezes, NORMAL BREATHING PATTERN. absent: Clear to Ausculation Bilateral - Cardiovascular Exam Cardiovascular Exam: Tachycardia, REGULAR RHYTHM, +S1, +S2. absent: Bradycardia - GI/Abdominal Exam GI & Abdominal Exam: Distended, Firm, Tenderness. absent: Guarding, Soft, Normal Bowel Sounds - Extremities Exam Extremities Exam: Full ROM, Normal Capillary Refill, Normal Inspection - Neurological Exam Neurological Exam: Alert, Awake, Oriented x3 - Psychiatric Exam Psychiatric exam: Anxious - Skin Skin Exam: Intact, Normal Color, Warm Assessment and Plan - Assessment and Plan (Free Text) Assessment: Assessment: This is a 62 year old male with history of recent diagnosis of small cell lung CA and metastatic spread to the liver, right kidney and now has lesions on the pancreas. He has been here before with abdominal pain secondary to pancreatitis and it has responded to conservative measures. 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 Improved aeration of the right middle lobe and right upper lobe secondary to a decrease in size of right perihilar mass and mediastinal adenopathy. Residual volume loss predominantly in the right middle lobe 2. Diffuse interstitial lung disease with fibrotic changes bilaterally. 3. Heterogeneous in density noted of the liver. This is less conspicuous than previous and suggests some improvement in metastatic involvement of the liver. 4. Pancreatitis suggested with the probable pseudocyst formation. Findings suggest decompression/erosion of one of the cysts into the stomach. CT abd/pelvis w/ contrast: * Findings strongly suspicious for pancreatic neoplasm. This has increased in size and extension when compared to the prior examination of 09/20/2017. There is encasement of the left renal vein. There is extension suspected along the left posterior para renal space. There is extension from the distal pancreatic tail. These all represent interval change when compared to the prior CT examination. There is dilatation and mural thickening of several loops of proximal jejunum as well as the 3rd duodenum. There is mural thickening of the posterior wall of the stomach. These findings may be related to inflammation from pancreatitis or may be related to neoplastic infiltration. Metastatic disease to the liver is noted. There is mural thickening of the distal transverse colon/ splenic flexure with pericolonic infiltration. Nonspecific colitis. This represents interval change from prior examination. Medications: Zofran 4mg IVP Q6H PRN Dilaudid 1mg IVP Q3H PRN Fentanyl 75mcg/hr 1 patch TD Q72H Aztreonam 2g IVPB Q8H (started 10/20) Dexamethasone 4mg IV QD Metronidazole 500mg IVP Q8H (started 10/20) Acute Pancreatitis (likely from metastatic spread), Improved Surgery consult, Dr Donald * No surgical intervention at this time GI consult, Dr Armijo Pancreatic metastasis from small cell lung cancer causing gastric outlet obstruction Likely inflammation from tumor necrosis given pain only with chemotherapy Pancreatitis improved - now on Liquid diet Medications: Zofran 4mg IVP Q6H PRN Dilaudid 1mg IVP Q3H PRN Fentanyl 50mcg/hr 1 patch TD Q72H Aztreonam 2g IVPB Q8H (started 10/20) Dexamethasone 4mg IV QD Metronidazole 500mg IVP Q8H (started 10/20) Gastric Outlet Obstruction, Resolved Decompression/erosion of one of the pancreatic cysts into the stomach Continue NGT output * NGT removed by surgery 10/24/17 Liquid diet for now Neutropenia/Anemia 2/2 chemotherapy Growth factor Granix 480mcg SC QD (started 08/21/17) * Granix daily until ANC > 500 Neutropenic precautions Abx as listed above for empiric coverage Shortness of breath, Hypoxia Today breathing comfortably on room air and speaking in full sentences Tobacco use last cigarette was 09/17 History of Alzheimer's Donepezil 10mg PO HS History of Anxiety Xanax 0.25mg BID Prophylaxis SCD Lovenox 40mg SC QD Famotidine 20mg PO QD Clay switched to condom catheter 10/23/17 PT/OT eval and treat Code Status: Full Code. Family meeting 10/25/17 with palliative - family and patient considering [facility]ILY[facility].
--- NOTE | 2017-10-25 15:09 | CP.PCM.PN ---
Subjective - Date & Time of Evaluation Date of Evaluation: 10/25/17 Time of Evaluation: 13:00 - Subjective Subjective: Feeling better, less pain. Tolerating PO. Objective - Vital Signs/Intake and Output Vital Signs (last 24 hours): Temp Pulse Resp BP Pulse Ox 97.7 F 88 20 108/68 95 10/25/17 08:40 10/25/17 08:40 10/25/17 08:40 10/25/17 08:40 10/25/17 08:40 Intake and Output: 10/25/17 10/25/17 06:59 18:59 Intake Total 2490 Balance 2490 - Medications Medications: Current Medications Alprazolam (Xanax) 0.25 mg PO BID [facility] Stop: 10/28/17 10:01 Last Admin: 10/25/17 10:47 Dose: 0.25 mg Dexamethasone (Decadron Inj) 4 mg IVP DAILY [facility] Last Admin: 10/25/17 10:47 Dose: 4 mg Donepezil HCl (Aricept) 10 mg PO HS [facility] Last Admin: 10/24/17 21:07 Dose: 10 mg Enoxaparin Sodium (Lovenox) 40 mg SC DAILY [facility] Last Admin: 10/25/17 10:47 Dose: 40 mg Famotidine (Pepcid) 20 mg PO DAILY [facility] Last Admin: 10/25/17 10:47 Dose: 20 mg Fentanyl (Duragesic) 1 patch TD Q72H [facility] Last Admin: 10/23/17 15:55 Dose: 1 patch Hydromorphone HCl (Dilaudid) 1 mg IVP Q3H PRN PRN Reason: Pain, severe (8-10) Last Admin: 10/25/17 13:57 Dose: 1 mg Metronidazole (Flagyl) 500 mg in 100 mls @ 100 mls/hr IVPB Q8H [facility] PRN Reason: Protocol Last Admin: 10/25/17 13:22 Dose: 100 mls/hr Aztreonam 2 gm/ Sodium (Chloride) 100 mls @ 200 mls/hr IVPB Q8H [facility] PRN Reason: Protocol Last Admin: 10/25/17 14:54 Dose: 200 mls/hr Potassium Chloride (Potassium Chloride 20 Meq/100 Ml) 20 meq in 100 mls @ 50 mls/hr IVPB ONCE ONE Stop: 10/25/17 15:35 Last Admin: 10/25/17 13:57 Dose: 50 mls/hr Ondansetron HCl (Zofran Inj) 4 mg IVP Q6 PRN PRN Reason: Nausea/Vomiting - Labs Labs: 10/25/17 07:22 10/25/17 07:22 - Head Exam Head Exam: ATRAUMATIC - Eye Exam Eye Exam: Normal appearance - ENT Exam ENT Exam: Mucous Membranes Dry - Respiratory Exam Respiratory Exam: NORMAL BREATHING PATTERN - Cardiovascular Exam Cardiovascular Exam: +S1, +S2 - GI/Abdominal Exam GI & Abdominal Exam: Normal Bowel Sounds Assessment and Plan (1) Neutropenia Assessment & Plan: secondary to chemotherapy on growth factor support goal ANC > 500 neutropenic precautions Status: Acute (2) Anemia Assessment & Plan: chemotherapy and chronic disease from malignancy Status: Acute (3) Pancreatitis Assessment & Plan: pancreatic metastasis, tumor necrosis causing inflammation Status: Acute (4) 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
--- NOTE | 2017-10-25 15:42 | CP.PCM.PN ---
Subjective - Date & Time of Evaluation Date of Evaluation: 10/25/17 Time of Evaluation: 11:00 - Subjective Subjective: Reports decrease in abd pain, tolerates PO liquid. Objective - Vital Signs/Intake and Output Vital Signs (last 24 hours): Temp Pulse Resp BP Pulse Ox 97.7 F 88 20 108/68 95 10/25/17 08:40 10/25/17 08:40 10/25/17 08:40 10/25/17 08:40 10/25/17 08:40 Intake and Output: 10/25/17 10/25/17 06:59 18:59 Intake Total 2490 1250 Balance 2490 1250 - Medications Medications: Current Medications Alprazolam (Xanax) 0.25 mg PO BID [facility] Stop: 10/28/17 10:01 Last Admin: 10/25/17 10:47 Dose: 0.25 mg Dexamethasone (Decadron Inj) 4 mg IVP DAILY [facility] Last Admin: 10/25/17 10:47 Dose: 4 mg Donepezil HCl (Aricept) 10 mg PO HS [facility] Last Admin: 10/24/17 21:07 Dose: 10 mg Enoxaparin Sodium (Lovenox) 40 mg SC DAILY [facility] Last Admin: 10/25/17 10:47 Dose: 40 mg Famotidine (Pepcid) 20 mg PO DAILY [facility] Last Admin: 10/25/17 10:47 Dose: 20 mg Fentanyl (Duragesic) 1 patch TD Q72H [facility] Last Admin: 10/23/17 15:55 Dose: 1 patch Hydromorphone HCl (Dilaudid) 1 mg IVP Q3H PRN PRN Reason: Pain, severe (8-10) Last Admin: 10/25/17 13:57 Dose: 1 mg Metronidazole (Flagyl) 500 mg in 100 mls @ 100 mls/hr IVPB Q8H [facility] PRN Reason: Protocol Last Admin: 10/25/17 13:22 Dose: 100 mls/hr Aztreonam 2 gm/ Sodium (Chloride) 100 mls @ 200 mls/hr IVPB Q8H [facility] PRN Reason: Protocol Last Admin: 10/25/17 14:54 Dose: 200 mls/hr Ondansetron HCl (Zofran Inj) 4 mg IVP Q6 PRN PRN Reason: Nausea/Vomiting - Labs Labs: 10/25/17 07:22 10/25/17 07:22 - Constitutional Appears: Chronically Ill - Head Exam Head Exam: ATRAUMATIC, NORMAL INSPECTION, NORMOCEPHALIC - Eye Exam Eye Exam: EOMI, Normal appearance, PERRL Pupil Exam: NORMAL ACCOMODATION, PERRL - ENT Exam ENT Exam: Mucous Membranes Moist, Normal Exam - Neck Exam Neck Exam: Normal Inspection - Respiratory Exam Respiratory Exam: Decreased Breath Sounds - Cardiovascular Exam Cardiovascular Exam: Tachycardia - GI/Abdominal Exam GI & Abdominal Exam: Distended, Firm, Diminished Bowel Sounds - Rectal Exam Rectal Exam: Deferred - Exam Exam: NORMAL INSPECTION - Extremities Exam Extremities Exam: Normal Inspection - Back Exam Back Exam: NORMAL INSPECTION - Neurological Exam Neurological Exam: Alert, Oriented x3 Neuro motor strength exam: Left Upper Extremity: 2/1, Right Upper Extremity: 2/1 , Left Lower Extremity: 2/1, Right Lower Extremity: 2/1 - Psychiatric Exam Psychiatric exam: Normal Affect, Normal Mood - Skin Skin Exam: Normal Color, Warm Assessment and Plan - Assessment and Plan (Free Text) Assessment: Patient examined in bed, alert, oriented X 3. NGT out. + BM and flatus. Tolerates PO. Family meeting held for goals of care discussion attended by daughter Shellie, sister, son in law and Suzette geek squad manager. I reviewed patient's clinical presentation and related suggestions by Doctor Neely for outpatient chemo Tx and Doctor Cortés against surgical interventions. Family stated being fully aware of terminal nature of patient;s condition. Daughter Shellie who patient named as his decision surrogate maker, said she wanted to fallow her father's wishes, one of them being to go home as opposed to MARILYN. We discussed lack of support at home as all family is working. Patient's sister who is a teacher will be off beginning October 30 and will be taking care of patient. Suzette the porter sample case was to assist patient in application for MCAID so patent could get some VNS help at home. Code status discussed. Patient repeated in front his family that he would want to be on life support for few days only if it should become a need. He nasmed his daughter as surrogate decision maker. POLST completed. Full Code. Impression * Very unfortunate male with metastatic lung disease * Mild improvement in GI status, tolerates PO intake * No surgical interventions suggested * Doctor Neely is suggestion outpatient Chemo * Family tries to organize themselves and create network of help for this patient as he lives alone * Lack of Medicaid insurance, porter sample case and SS are working on it Suggestion * PO fluids as tolerated * Discharge planing to [facility] for PT * SS to assist with MCAID application * FULL CODE, POLST on chart * Daughter Shellie [phone] surrogate decision maker. Advance care planing 45 min
[2017-10-25] MEDS ORDERED: Potassium Chloride 20 mEq ER Tab PO ONE (19:15)
[2017-10-26] MEDS: HYDROmorphone 1 mg/ml ISec IVP PRN ×2 (04:32→10:28)
[2017-10-26] MEDS: metroNIDAZOLE IV 500 mg/100 ml 500 MG/100 ML BAG IVPB SCH ×3 (05:00→21:15)
[2017-10-26] MEDS: Aztreonam 2 GM in Sodium Chloride 0.9% 100 ML IVPB SCH ×3 (06:00→22:16)
--- NOTE | 2017-10-26 07:20 | CP.PCM.PN ---
Subjective - Date & Time of Evaluation Date of Evaluation: 10/26/17 Time of Evaluation: 07:17 - Subjective Subjective: PGY-[address] Gale. Overnight patient desaturated into 80s% on 3L NC. Overnight resident ordered NRB mask and patient saturation improved into high 90s. Patient appeared drowsy likely due to pain medications. Brother and sister at bedside. Patient stated his pain had moved to the right side of his abdomen. Stated he's been having trouble breathing. Brother stated he was talking to himself before and sister concerned pain meds making him too drowsy. Objective - Vital Signs/Intake and Output Vital Signs (last 24 hours): Temp Pulse Resp BP Pulse Ox 97.8 F 109 H 20 108/65 99 10/26/17 00:00 10/26/17 00:00 10/26/17 00:00 10/26/17 00:00 10/26/17 00:00 Intake and Output: 10/26/17 10/26/17 06:59 18:59 Intake Total 1120 Balance 1120 - Medications Medications: Current Medications Alprazolam (Xanax) 0.25 mg PO BID [facility] Stop: 10/28/17 10:01 Last Admin: 10/25/17 18:01 Dose: 0.25 mg Dexamethasone (Decadron Inj) 4 mg IVP DAILY [facility] Last Admin: 10/25/17 10:47 Dose: 4 mg Donepezil HCl (Aricept) 10 mg PO HS [facility] Last Admin: 10/25/17 21:04 Dose: 10 mg Enoxaparin Sodium (Lovenox) 40 mg SC DAILY [facility] Last Admin: 10/25/17 10:47 Dose: 40 mg Famotidine (Pepcid) 20 mg PO DAILY [facility] Last Admin: 10/25/17 10:47 Dose: 20 mg Fentanyl (Duragesic) 1 patch TD Q72H [facility] Last Admin: 10/23/17 15:55 Dose: 1 patch Hydromorphone HCl (Dilaudid) 1 mg IVP Q3H PRN PRN Reason: Pain, severe (8-10) Last Admin: 10/26/17 04:32 Dose: 1 mg Metronidazole (Flagyl) 500 mg in 100 mls @ 100 mls/hr IVPB Q8H [facility] PRN Reason: Protocol Last Admin: 10/26/17 05:00 Dose: 100 mls/hr Aztreonam 2 gm/ Sodium (Chloride) 100 mls @ 200 mls/hr IVPB Q8H [facility] PRN Reason: Protocol Last Admin: 10/26/17 06:00 Dose: 200 mls/hr Ondansetron HCl (Zofran Inj) 4 mg IVP Q6 PRN PRN Reason: Nausea/Vomiting - Labs Labs: 10/25/17 07:22 10/25/17 07:22 - Additional Findings Additional findings: - Constitutional Appears: Chronically Ill - Head Exam Head Exam: ATRAUMATIC, NORMAL INSPECTION Additional comments: NGT removed - Eye Exam Eye Exam: EOMI Pupil Exam: PERRL - ENT Exam ENT Exam: Mucous Membranes Moist - Neck Exam Neck Exam: Full ROM - Respiratory Exam Respiratory Exam: Decreased Breath Sounds, Wheezes, NORMAL BREATHING PATTERN. absent: Clear to Ausculation Bilateral - Cardiovascular Exam Cardiovascular Exam: Tachycardia, REGULAR RHYTHM, +S1, +S2. absent: Bradycardia - GI/Abdominal Exam GI & Abdominal Exam: Distended, Firm, Tenderness. absent: Guarding, Soft, Normal Bowel Sounds - Extremities Exam Extremities Exam: Full ROM, Normal Capillary Refill, Normal Inspection - Neurological Exam Neurological Exam: Alert, Awake, Oriented x3 - Psychiatric Exam Psychiatric exam: Anxious - Skin Skin Exam: Intact, Normal Color, Warm Assessment and Plan - Assessment and Plan (Free Text) Assessment: Assessment: This is a 62 year old male with history of recent diagnosis of small cell lung CA and metastatic spread to the liver, right kidney and now has lesions on the pancreas. He has been here before with abdominal pain secondary to pancreatitis and it has responded to conservative measures. 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 Improved aeration of the right middle lobe and right upper lobe secondary to a decrease in size of right perihilar mass and mediastinal adenopathy. Residual volume loss predominantly in the right middle lobe 2. Diffuse interstitial lung disease with fibrotic changes bilaterally. 3. Heterogeneous in density noted of the liver. This is less conspicuous than previous and suggests some improvement in metastatic involvement of the liver. 4. Pancreatitis suggested with the probable pseudocyst formation. Findings suggest decompression/erosion of one of the cysts into the stomach. CT abd/pelvis w/ contrast: * Findings strongly suspicious for pancreatic neoplasm. This has increased in size and extension when compared to the prior examination of 09/20/2017. There is encasement of the left renal vein. There is extension suspected along the left posterior para renal space. There is extension from the distal pancreatic tail. These all represent interval change when compared to the prior CT examination. There is dilatation and mural thickening of several loops of proximal jejunum as well as the 3rd duodenum. There is mural thickening of the posterior wall of the stomach. These findings may be related to inflammation from pancreatitis or may be related to neoplastic infiltration. Metastatic disease to the liver is noted. There is mural thickening of the distal transverse colon/ splenic flexure with pericolonic infiltration. Nonspecific colitis. This represents interval change from prior examination. Medications: Zofran 4mg IVP Q6H PRN Dilaudid 1mg IVP Q4H PRN for severe pain Dilaudid 0.5mg IVP Q2H PRN for moderate pain Fentanyl 50mcg/hr 1 patch TD Q72H Aztreonam 2g IVPB Q8H (started 10/20) Dexamethasone 4mg IV QD Metronidazole 500mg IVP Q8H (started 10/20) Shortness of breath Ronchi heard on RLL - possibly aspirated from gastric outlet obstruction NRB O2 F/U Chest Xray Aztreonam 2g IVPB Q8H (started 10/20) Metronidazole 500mg IVP Q8H (started 10/20) Acute Pancreatitis (likely from metastatic spread), Improved Surgery consult, Dr Donald * No surgical intervention at this time GI consult, Dr Armijo Pancreatic metastasis from small cell lung cancer causing gastric outlet obstruction Likely inflammation from tumor necrosis given pain only with chemotherapy Pancreatitis improved - now on Liquid diet Medications: Zofran 4mg IVP Q6H PRN Dilaudid 1mg IVP Q3H PRN Fentanyl 50mcg/hr 1 patch TD Q72H Aztreonam 2g IVPB Q8H (started 10/20) Dexamethasone 4mg IV QD Metronidazole 500mg IVP Q8H (started 10/20) Gastric Outlet Obstruction, Resolved Decompression/erosion of one of the pancreatic cysts into the stomach Continue NGT output * NGT removed by surgery 10/24/17 Liquid diet for now Neutropenia, Resolved 2/2 chemotherapy Growth factor Granix 480mcg SC QD (started 08/21/17) * Granix daily until ANC > 500 * Bands possibly elevated due to Granix (as discussed with Dr Neely) Neutropenic precautions Abx as listed above for empiric coverage Shortness of breath, Hypoxia Today breathing comfortably on room air and speaking in full sentences Tobacco use last cigarette was 09/17 History of Alzheimer's Donepezil 10mg PO HS History of Anxiety Xanax 0.25mg BID Prophylaxis SCD Lovenox 40mg SC QD Famotidine 20mg PO QD [facility] switched to condom catheter 10/23/17 PT/OT eval and treat Code Status: Full Code. Discharge planing to [facility] for PT
--- NOTE | 2017-10-26 07:49 | CP.PCM.PN ---
Subjective - Date & Time of Evaluation Date of Evaluation: 10/26/17 Time of Evaluation: 07:30 - Subjective Subjective: f/u abdom pain eports abdom pain- same. No vomitiang, fever, SZ, hematuria, hemoptysis, AMEZQUITA, + cough Objective - Vital Signs/Intake and Output Vital Signs (last 24 hours): Temp Pulse Resp BP Pulse Ox 97.8 F 109 H 20 108/65 99 10/26/17 00:00 10/26/17 00:00 10/26/17 00:00 10/26/17 00:00 10/26/17 00:00 Intake and Output: 10/26/17 10/26/17 06:59 18:59 Intake Total 1120 Balance 1120 - Medications Medications: Current Medications Alprazolam (Xanax) 0.25 mg PO BID [facility] Stop: 10/28/17 10:01 Last Admin: 10/25/17 18:01 Dose: 0.25 mg Dexamethasone (Decadron Inj) 4 mg IVP DAILY [facility] Last Admin: 10/25/17 10:47 Dose: 4 mg Donepezil HCl (Aricept) 10 mg PO HS [facility] Last Admin: 10/25/17 21:04 Dose: 10 mg Enoxaparin Sodium (Lovenox) 40 mg SC DAILY [facility] Last Admin: 10/25/17 10:47 Dose: 40 mg Famotidine (Pepcid) 20 mg PO DAILY [facility] Last Admin: 10/25/17 10:47 Dose: 20 mg Fentanyl (Duragesic) 1 patch TD Q72H [facility] Last Admin: 10/23/17 15:55 Dose: 1 patch Hydromorphone HCl (Dilaudid) 1 mg IVP Q3H PRN PRN Reason: Pain, severe (8-10) Last Admin: 10/26/17 04:32 Dose: 1 mg Metronidazole (Flagyl) 500 mg in 100 mls @ 100 mls/hr IVPB Q8H [facility] PRN Reason: Protocol Last Admin: 10/26/17 05:00 Dose: 100 mls/hr Aztreonam 2 gm/ Sodium (Chloride) 100 mls @ 200 mls/hr IVPB Q8H [facility] PRN Reason: Protocol Last Admin: 10/26/17 06:00 Dose: 200 mls/hr Ondansetron HCl (Zofran Inj) 4 mg IVP Q6 PRN PRN Reason: Nausea/Vomiting - Labs Labs: 10/25/17 07:22 10/25/17 07:22 - Constitutional Appears: Non-toxic - Neck Exam Neck Exam: absent: Tenderness - Respiratory Exam Respiratory Exam: Rhonchi - Cardiovascular Exam Cardiovascular Exam: RRR - GI/Abdominal Exam GI & Abdominal Exam: Distended, Tenderness, Normal Bowel Sounds. absent: Guarding, Rebound - Extremities Exam Extremities Exam: absent: Calf Tenderness - Neurological Exam Neurological Exam: Alert, Oriented x3 Assessment and Plan (1) Abdominal pain Assessment & Plan: metastatic dis. GOO from mets. Status: Acute (2) Abnormal finding on CT scan Assessment & Plan: Panc mass- c/w mets Status: Acute (3) Renal metastasis Status: Acute (4) Small cell lung cancer Status: Acute (5) Abnormal LFTs Assessment & Plan: liver mets Status: Acute (6) HTN (hypertension) Status: Acute (7) Liver metastases Status: Acute (8) Pancreatitis Assessment & Plan: panc mass- mets Status: Acute (9) Gastric outlet obstruction Assessment & Plan: from mets. NG tube removed. Consider palliative care and pain management. Status: Acute
[2017-10-26 08:59] LABS: BASO % 0.3 % (0.0-2.0); HEMOGLOBIN 9.7 g/dL (12.0-18.0); LYMPH # 1.3 K/uL (1.0-4.3); MEAN CORPUSCULAR HEMOGLOBIN 27.8 pg (27.0-31.0)
[2017-10-26 09:07] LABS: EOS % 0.1 % (0.0-4.0); LYMPH % 21.5 % (20.0-40.0); MEAN CELL VOLUME 80.8 fL (80.0-94.0); MEAN CORPUSCULAR HGB CONC 34.5 g/dL (33.0-37.0); MEAN PLATELET VOLUME 8.7 fL (7.2-11.7); MONO # 0.2 K/uL (0.0-0.8); MONO % 3.6 % (0.0-10.0); NEUT # 4.6 K/uL (1.8-7.0); NEUT % 74.5 % (50.0-75.0); NRBC % 3.2 % (0.0-2.0); PLATELET COUNT 131 K/uL (130-400); RED CELL DISTRIBUTION WIDTH 19.1 % (11.5-14.5)
[2017-10-26 09:11] LABS: WHITE BLOOD COUNT 6.1 K/uL (4.8-10.8)
[2017-10-26 09:19] LABS: ALT/SGPT 38 U/L (21-72); AST/SGOT 48 U/L (17-59); BLOOD UREA NITROGEN 12 mg/dL (9-20); CALCIUM 7.9 mg/dl (8.6-10.4); GFR AFRICAN-AMERICAN > 60; GFR NON-AFRICAN AMERICAN > 60
[2017-10-26 10:15] LABS: ANISOCYTOSIS SLIGHT; BANDS 14 % (0-2); HYPOCHROMIC SLIGHT; LYMPHOCYTE 30 % (20-40); MONOCYTE 26 % (0-10); MYELOCYTE 2 % (0-0); NEUTROPHIL 22 % (50-75); NUCLEATED RED BLOOD CELL 12 % (0-0); PLATELET ESTIMATE NORMAL (NORMAL); POIKILOCYTOSIS SLIGHT; POLYCHROMIC SLIGHT; REACTIVE LYMPHOCYTES 6 % (0-0); TOTAL CELLS COUNTED 100
[2017-10-26 10:16] LABS: GIANT PLATELETS PRESENT; LARGE PLATELETS PRESENT
[2017-10-26] MEDS: Dexamethasone 4 mg/1 ml IVP SCH (10:35)
[2017-10-26] MEDS: Enoxaparin 40 mg Syringe SC SCH (10:36)
[2017-10-26] MEDS ORDERED: HYDROmorphone 0.5 mg/0.5 ml ISec IVP PRN (15:39)
[2017-10-26] MEDS ORDERED: HYDROmorphone 1 mg/ml ISec IVP PRN (15:40)
--- NOTE | 2017-10-26 16:44 | RAD ---
HISTORY: shortness of breath; rule out aspiration COMPARISON: 10/21/2017. FINDINGS: The right-sided MediPort terminates in the SVC. LUNGS: There is interval development of haziness and confluent airspace disease in both lungs, worse in the right lower lobe. PLEURA: Bilateral layering pleural effusions, no pneumothorax apparent. CARDIOVASCULAR: Normal. OSSEOUS STRUCTURES: No significant abnormalities. VISUALIZED UPPER ABDOMEN: Normal. OTHER FINDINGS: None. IMPRESSION: Findings are most compatible with pulmonary edema versus multifocal pneumonia, worse in the right lower lobe. Follow-up is advised. Bilateral layering pleural effusions.
[2017-10-26] MEDS ORDERED: Potassium Chloride 20 mEq ER Tab PO ONE ×2 (17:00→19:00)
[2017-10-26] MEDS: Albuterol-Ipratrop 3 mg / 0.5 (3 ml) UD INH SCH (20:31)
[2017-10-26] MEDS ORDERED: Amiodarone 150mg/3 ml vial ONE (23:25)
--- NOTE | 2017-10-26 23:47 | CP.PCM.CON ---
History of Present Illness - History of Present Illness History of Present Illness: Attending: Dr Gale PMD: Dr Frank GI: Dr Cortés Oncology: Dr Neely Surgery: Dr Donald Reason for Consult: Critical care management Chief Complaint: Post Code Blue The patient was seen and examined in the ICU: HPI: The hx is obtained from the medical staff and after review of the medical records. 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 Rajan Richmond was called on his return walking from the bath room very dyspneic and going into a respiratory arrest and then cardiac failure. he received Chest compressions an one mg of Epinephrine before ROSC. He developed a wide complex tachycardia and was given a bolus of Amiodarone which converted the rhythm to narrow complex tachycardia. 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, Right kidney; Pancreatic mass PSH: Back surgery; Right shoulder surgery SH: Smoked 1PPD for >35 years; No Alcohol; No illegal drug use; Live alone FH: Daughter with Breast CA; Mother with DM; GERD; Father with lung fibrosis Allergies: PCN Medication: Reviewed Review of Systems - Review of Systems Systems not reviewed;Unavailable: Intubated Review of Systems: Review of systems limite because the patient is now waking up ,intubted, Past Patient History - Infectious Disease Hx of Infectious Diseases: None - Past Medical History & Family History Past Medical History?: Yes - Past Social History Smoking Status: Former Smoker Chewing Tobacco Use: No Cigar Use: No Alcohol: None Drugs: Denies Home Situation {Lives}: Alone - CARDIAC Hx Hypertension: Yes - PULMONARY Hx Respiratory Disorders: No - NEUROLOGICAL Hx Neurological Disorder: No - HEENT Hx HEENT Problems: No - RENAL Hx Chronic Kidney Disease: No - ENDOCRINE/METABOLIC Hx Endocrine Disorders: No - HEMATOLOGICAL/ONCOLOGICAL Hx Blood Disorders: No Other/Comment: CA to Right kidney stage 4. 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 Had his last chemo yesterday 09/19/17 - INTEGUMENTARY Hx Dermatological Problems: No - MUSCULOSKELETAL/RHEUMATOLOGICAL Hx Arthritis: Yes (KNEES) - GASTROINTESTINAL Hx Gastritis: Yes - GENITOURINARY/GYNECOLOGICAL Hx Genitourinary Disorders: No - PSYCHIATRIC Hx Anxiety: Yes Hx Depression: No Hx Post Traumatic Stress Disorder: No Hx Substance Use: No - SURGICAL HISTORY Hx Surgeries: Yes Hx Arthroscopy: No Hx Open Reduction Internal Fixation: No Hx Orthopedic Surgery: Yes (RIGHT SHOULDER ROTO CUFF) Other/Comment: Back surgery 2016 - ANESTHESIA Hx Anesthesia: Yes Hx Anesthesia Reactions: No Hx Malignant Hyperthermia: No Meds Allergies/Adverse Reactions: Allergies Allergy/AdvReac Type Severity Reaction Status Date / Time Penicillins AdvReac Intermediate DIZZINESS Verified 10/20/17 15:08 - Medications Medications: Current Medications Albuterol/Ipratropium (Duoneb 3 Mg/0.5 Mg (3 Ml) Ud) 3 ml INH RQ6 [facility] Last Admin: 10/26/17 20:31 Dose: 3 ml Alprazolam (Xanax) 0.25 mg PO BID [facility] Stop: 10/28/17 10:01 Last Admin: 10/26/17 17:21 Dose: 0.25 mg Dexamethasone (Decadron Inj) 4 mg IVP DAILY [facility] Last Admin: 10/26/17 10:35 Dose: 4 mg Donepezil HCl (Aricept) 10 mg PO HS [facility] Last Admin: 10/26/17 21:16 Dose: 10 mg Enoxaparin Sodium (Lovenox) 40 mg SC DAILY [facility] Last Admin: 10/26/17 10:36 Dose: 40 mg Famotidine (Pepcid) 20 mg PO DAILY [facility] Last Admin: 10/26/17 10:36 Dose: 20 mg Fentanyl (Duragesic) 1 patch TD Q72H [facility] Last Admin: 10/26/17 14:39 Dose: 1 patch Hydromorphone HCl (Dilaudid) 0.5 mg IVP Q2H PRN PRN Reason: Pain, moderate (4-7) Last Admin: 10/26/17 21:21 Dose: 0.5 mg Hydromorphone HCl (Dilaudid) 1 mg IVP Q4H PRN PRN Reason: Pain, severe (8-10) Metronidazole (Flagyl) 500 mg in 100 mls @ 100 mls/hr IVPB Q8H [facility] PRN Reason: Protocol Last Admin: 10/26/17 21:15 Dose: 100 mls/hr Aztreonam 2 gm/ Sodium (Chloride) 100 mls @ 200 mls/hr IVPB Q8H [facility] PRN Reason: Protocol Last Admin: 10/26/17 22:16 Dose: 200 mls/hr Ondansetron HCl (Zofran Inj) 4 mg IVP Q6 PRN PRN Reason: Nausea/Vomiting Physical Exam - Constitutional Additional comments: Intubated and in respiratory distress. - Head Exam Head Exam: ATRAUMATIC, NORMAL INSPECTION, NORMOCEPHALIC - Eye Exam Eye Exam: EOMI - ENT Exam ENT Exam: Mucous Membranes Moist, Normal Exam, Normal External Ear Exam - Neck Exam Neck exam: Negative for: Lymphadenopathy, Tenderness - Respiratory Exam Additional comments: Diffuse rales in whole of both lung isbell - Cardiovascular Exam Cardiovascular Exam: Tachycardia, JVD, +S1, +S2. absent: Gallop - GI/Abdominal Exam Additional comments: Obese, Firm with palpable mass in the Abdomen. - Rectal Exam Rectal Exam: Deferred - Extremities Exam Extremities exam: Positive for: normal inspection - Back Exam Back exam: CVA tenderness (L), CVA tenderness (R). absent: NORMAL INSPECTION - Neurological Exam Neurological exam: Alert, Reflexes Normal Additional comments: Patient Intubated, waking up; very restless, attempting to pull out the ET tube. - Psychiatric Exam Psychiatric exam: Normal Affect, Normal Mood - Skin Skin Exam: Dry, Intact, Normal Color, Warm Results - Vital Signs Recent Vital Signs: Last Vital Signs Temp 98.6 F 10/26/17 16:00 Pulse 113 H 10/26/17 20:35 Resp 18 10/26/17 16:00 BP 109/71 10/26/17 16:00 Pulse Ox 93 L 10/26/17 16:00 - Labs Result Diagrams: 10/26/17 08:55 10/26/17 08:55 Labs: Laboratory Results - last 24 hr 10/26/17 10/26/17 10/26/17 07:11 08:55 08:55 WBC 6.1 D RBC 3.50 L Hgb 9.7 L Hct 28.3 L MCV 80.8 MCH 27.8 MCHC 34.5 RDW 19.1 H Plt Count 131 MPV 8.7 Neut % (Auto) 74.5 Lymph % (Auto) 21.5 [place] % (Auto) 3.6 Eos % (Auto) 0.1 Baso % (Auto) 0.3 Neut # (Auto) 4.6 Lymph # (Auto) 1.3 [place] # (Auto) 0.2 Eos # (Auto) 0.0 Baso # (Auto) 0.0 Neutrophils % (Manual) 22 L Band Neutrophils % 14 H* Lymphocytes % (Manual) 30 Reactive Lymphs % 6 H Monocytes % (Manual) 26 H Myelocytes % 2 H Nucleated RBC % 12 H Platelet Estimate Normal Large Platelets Present Giant Platelets Present Polychromasia Slight Hypochromasia (manual) Slight Poikilocytosis (manual Slight Anisocytosis (manual) Slight Macrocytosis (manual) Slight Sodium 136 Potassium 3.5 L Chloride 101 Carbon Dioxide 22 Anion Gap 16 BUN 12 Creatinine 0.6 L Est GFR ( Amer) > 60 Est GFR (Non-Af Amer) > 60 POC Glucose (mg/dL) 148 H Random Glucose 147 H Calcium 7.9 L Total Bilirubin 0.9 AST 48 ALT 38 Alkaline Phosphatase 267 H Total Protein 6.0 L Albumin 3.0 L Globulin 3.0 Albumin/Globulin Ratio 1.0 10/26/17 10/26/17 10/26/17 11:07 16:29 20:55 WBC RBC Hgb Hct MCV MCH MCHC RDW Plt Count MPV Neut % (Auto) Lymph % (Auto) [place] % (Auto) Eos % (Auto) Baso % (Auto) Neut # (Auto) Lymph # (Auto) [place] # (Auto) Eos # (Auto) Baso # (Auto) Neutrophils % (Manual) Band Neutrophils % Lymphocytes % (Manual) Reactive Lymphs % Monocytes % (Manual) Myelocytes % Nucleated RBC % Platelet Estimate Large Platelets Giant Platelets Polychromasia Hypochromasia (manual) Poikilocytosis (manual Anisocytosis (manual) Macrocytosis (manual) Sodium Potassium Chloride Carbon Dioxide Anion Gap BUN Creatinine Est GFR ( Amer) Est GFR (Non-Af Amer) POC Glucose (mg/dL) 140 H 135 H 146 H Random Glucose Calcium Total Bilirubin AST ALT Alkaline Phosphatase Total Protein Albumin Globulin Albumin/Globulin Ratio - Imaging and Cardiology Chest x-ray Status: Image reviewed by me Additional comment: Bilateral interstitial infiltrate reflecting Pulmonay edema or ARDS Assessment & Plan - Assessment and Plan (Free Text) Assessment: #. s/p CardioPulmonay Arrest #. Metastatic Small Cell cancer #. Abdominal pain Plan: 62 years old male with hx of Anxiety, gastritis, Small cell Cancer with mets to the liver, right kidney and mass on the pancrease was receiving chemotherapy until prior to this admission on 10/20/17 , where he came to the ED for abdominal pains of Pancreatitis or from effect of the pancreatic mass. Rajan Richmond was called on his return walking from the bath room very dyspneic and going into a respiratory arrest and then cardiac failure. he received Chest compressions an one mg of Epinephrine before ROSC. He developed a wide complex tachycardia and was given a bolus of Amiodarone which converted the rhythm to narrow complex tachycardia. #. s/p CardioPulmonay Arrest, most likely initiated with respiratory arrest #. Acute Hypoxic respiratory failure due to Pulmonary Edema vs ARDS in a lung with small cell Ca - CXR shows signs of bilateral infiltrate - Mechanical ventilator with settings AC Rate of 20; TV of 400; PEEP of 8; SPO2 of 100% - Lasix 60mg and Daily - Antibiotics Flagyl/Aztreonam/Doxycyclin/Vaccomycin; - Duoneb #. Metastatic Small Cell cancer - Heme/Oncology on consult Dr Camara - Continue Decadron #. DVT Prophylaxis with SCD and Lovenox #. Code Status: Full - Date & Time Date: 10/26/17 Time: 23:47
[2017-10-27] MEDS ORDERED: Propofol 10 mg/ml 1,000 MG/100 ML VIAL IV PRN (00:27)
--- NOTE | 2017-10-27 00:34 | CP.PCM.PN ---
Subjective - Date & Time of Evaluation Date of Evaluation: 10/27/17 Time of Evaluation: 00:25 - Subjective Subjective: Responded to [employer] turned into code blue, upon arrival patient was not responding , feeble slow? pulse present, CPR started, connected to monitor slow rhythm, not palpable noticed, patient intubated by me with, during intubation movements of vocal cords and breathing attempt noticed. Patient had rhythm and palpable pulse, by this time patient has received 1 dose of epinephrine. CPR stopped. Wide complex tachycardia persisted rate of 160/min, given bolus of amiodarone 150mg iv, which converted the rhythm to sinus tachy, narrow complex. OG tube inserted, placement confirmed. Patient transferred to ICU, Dr. Cleary covering ICU was present on the floor during code, care transferred to ICU team. D/w the patient's nurse, reviewed the presentation and course in the hospital, sob and hypoxia got worse on night of 10/25, since then he has been on NRB, sob when goes to bathroom, patient insisted go to the bathroom, upon return, got sob , collapsed while bed, [employer] called then and then code blue. Reviewed CXR, added vancomycin and doxycycline, for MRSA and atypical coverage, DD of PE, ARDS, multifocal pna. Objective - Vital Signs/Intake and Output Vital Signs (last 24 hours): Temp Pulse Resp BP Pulse Ox 98.6 F 113 H 18 109/71 93 L 10/26/17 16:00 10/26/17 20:35 10/26/17 16:00 10/26/17 16:00 10/26/17 16:00 Intake and Output: 10/26/17 10/27/17 18:59 06:59 Intake Total 500 560 Balance 500 560 - Medications Medications: Current Medications Albuterol/Ipratropium (Duoneb 3 Mg/0.5 Mg (3 Ml) Ud) 3 ml INH RQ6 [facility] Last Admin: 10/26/17 20:31 Dose: 3 ml Alprazolam (Xanax) 0.25 mg PO BID [facility] Stop: 10/28/17 10:01 Last Admin: 10/26/17 17:21 Dose: 0.25 mg Dexamethasone (Decadron Inj) 4 mg IVP DAILY [facility] Last Admin: 10/26/17 10:35 Dose: 4 mg Donepezil HCl (Aricept) 10 mg PO HS [facility] Last Admin: 10/26/17 21:16 Dose: 10 mg Enoxaparin Sodium (Lovenox) 40 mg SC DAILY [facility] Last Admin: 10/26/17 10:36 Dose: 40 mg Famotidine (Pepcid) 20 mg PO DAILY [facility] Last Admin: 10/26/17 10:36 Dose: 20 mg Fentanyl (Duragesic) 1 patch TD Q72H [facility] Last Admin: 10/26/17 14:39 Dose: 1 patch Hydromorphone HCl (Dilaudid) 0.5 mg IVP Q2H PRN PRN Reason: Pain, moderate (4-7) Last Admin: 10/26/17 21:21 Dose: 0.5 mg Hydromorphone HCl (Dilaudid) 1 mg IVP Q4H PRN PRN Reason: Pain, severe (8-10) Metronidazole (Flagyl) 500 mg in 100 mls @ 100 mls/hr IVPB Q8H [facility] PRN Reason: Protocol Last Admin: 10/26/17 21:15 Dose: 100 mls/hr Aztreonam 2 gm/ Sodium (Chloride) 100 mls @ 200 mls/hr IVPB Q8H [facility] PRN Reason: Protocol Last Admin: 10/26/17 22:16 Dose: 200 mls/hr Doxycycline Hyclate 100 mg/ (Sodium Chloride) 100 mls @ 100 mls/hr IVPB Q12H [facility] PRN Reason: Protocol Vancomycin/Sodium Chloride (Vancomycin 1 Gm/Ns 200 Ml) 1 gm in 200 mls @ 133 mls/hr IVPB Q12H [facility] PRN Reason: Protocol Stop: 11/01/17 00:31 Ondansetron HCl (Zofran Inj) 4 mg IVP Q6 PRN PRN Reason: Nausea/Vomiting - Labs Labs: 10/26/17 08:55 10/26/17 08:55
--- NOTE | 2017-10-27 00:36 | PCM.PROC ---
Procedures Attestation:: I certify that I have explained the specified Operation(s) or Procedure(s), risks, benefits and reasonable alternatives to the Patient and/or other person responsible. The opportunity was given to ask questions and all questions answered - Intubation Time Out Performed: No Sedative: None Laryngoscope: [place] (4) ET Tube Size: 7.5 ET Tube Uncuffed: No ET Tube Secured Locarion: Teeth (24 cm) ET Tube Placement Confirmation: Visualized Passing Through Cords, Breath Sounds Equal Bilaterally, No Breath Sounds Over Epigastrum, Confirmation w/Capnometry Patient Tolerated Procedure: Well Procedure Immediate Complications: None Additional comments: CXR ordered being done.
[2017-10-27] MEDS ORDERED: Dexmedetomidine Hydrochloride 200 MCG in Sodium Chloride 0.9% 48 ML IV PRN (01:00)
[2017-10-27 01:48] LABS: ARTERIAL BLOOD GAS HCO3 16.2 mmol/L (21-28); ARTERIAL BLOOD GAS HEMOGLOBIN 10.9 g/dL (11.7-17.4); ARTERIAL BLOOD GAS O2 SAT 83.5 % (95-98); ARTERIAL BLOOD GAS PCO2 43 mm/Hg (35-45); ARTERIAL BLOOD GAS PO2 49 mm/Hg (80-100); ARTERIAL BLOOD GAS TCO2 18.1 mmol/L (22-28)
[2017-10-27] MEDS: Albuterol-Ipratrop 3 mg / 0.5 (3 ml) UD INH SCH ×4 (01:54→20:15)
[2017-10-27] MEDS: Vancomycin 1 gm/NS 200 ml 1 GM/200 ML BAG IVPB SCH ×3 (02:37→23:58)
[2017-10-27] MEDS: Aztreonam 2 GM in Sodium Chloride 0.9% 100 ML IVPB SCH ×3 (05:48→23:25)
[2017-10-27] MEDS: metroNIDAZOLE IV 500 mg/100 ml 500 MG/100 ML BAG IVPB SCH ×3 (05:50→21:25)
[2017-10-27 06:05] LABS: ARTERIAL BLOOD GAS HCO3 18.2 mmol/L (21-28); ARTERIAL BLOOD GAS HEMOGLOBIN 10.6 g/dL (11.7-17.4); ARTERIAL BLOOD GAS O2 SAT 89.2 % (95-98); ARTERIAL BLOOD GAS PCO2 50 mm/Hg (35-45); ARTERIAL BLOOD GAS PO2 53 mm/Hg (80-100)
[2017-10-27 07:25] LABS: ALB/GLOB RATIO 0.8 (1.0-2.1); ALBUMIN 2.7 g/dL (3.5-5.0); ALT/SGPT 45 U/L (21-72); AST/SGOT 92 U/L (17-59); BLOOD UREA NITROGEN 18 mg/dL (9-20); CALCIUM 8.1 mg/dl (8.6-10.4); GFR AFRICAN-AMERICAN > 60; GFR NON-AFRICAN AMERICAN 56
[2017-10-27 07:30] LABS: BASO # 0.1 K/uL (0.0-0.2); BASO % 0.4 % (0.0-2.0); EOS % 0.1 % (0.0-4.0); LYMPH # 2.4 K/uL (1.0-4.3); LYMPH % 8.4 % (20.0-40.0); MEAN CELL VOLUME 82.3 fL (80.0-94.0); MEAN CORPUSCULAR HGB CONC 32.8 g/dL (33.0-37.0); MEAN PLATELET VOLUME 9.6 fL (7.2-11.7); MONO # 1.5 K/uL (0.0-0.8); MONO % 5.1 % (0.0-10.0); NEUT # 24.5 K/uL (1.8-7.0); NRBC % 5.6 % (0.0-2.0); PLATELET COUNT 138 K/uL (130-400); RBC 3.72 Mil/uL (4.40-5.90); RED CELL DISTRIBUTION WIDTH 19.8 % (11.5-14.5); WHITE BLOOD COUNT 28.5 K/uL (4.8-10.8)
--- NOTE | 2017-10-27 08:23 | RAD ---
HISTORY: 700 COMPARISON: 10/27/2017. FINDINGS: The right MediPort terminates in the SVC. Stable position of endotracheal tube. The nasogastric tube is seen below the diaphragm. LUNGS: The lungs are well inflated. There is worsening pulmonary edema. There is severe pulmonary venous congestion. Also noted is confluent airspace disease in both lower lobes. PLEURA: No significant pleural effusion identified, no pneumothorax apparent. CARDIOVASCULAR: Normal. OSSEOUS STRUCTURES: No significant abnormalities. VISUALIZED UPPER ABDOMEN: Normal. OTHER FINDINGS: None. IMPRESSION: Worsening pulmonary edema. Confluent airspace disease in the lower lobes may represent subsegmental atelectasis however aspiration pneumonia is also a consideration.
[2017-10-27 08:37] LABS: ARTERIAL BLOOD GAS HCO3 14.6 mmol/L (21-28); ARTERIAL BLOOD GAS O2 SAT 27.9 % (95-98); ARTERIAL BLOOD GAS PCO2 46 mm/Hg (35-45); ARTERIAL BLOOD GAS PH 7.19 (7.35-7.45); ARTERIAL BLOOD GAS PO2 17 mm/Hg (80-100)
[2017-10-27] MEDS ORDERED: Sodium Bicarbonate (8.4%) 50 Meq Syringe IVP ONE (08:39)
--- NOTE | 2017-10-27 08:43 | PCM.PROC ---
Procedures Attestation:: I certify that I have explained the specified Operation(s) or Procedure(s), risks, benefits and reasonable alternatives to the Patient and/or other person responsible. The opportunity was given to ask questions and all questions answered - Central Line Placement Right Femoral Triple Lumen Catheter Aseptic technique was employed throughout the procedure: Full sterile barriers ( mask, hair cover, sterile gown, sterile gloves), Full body sterile drape, Chloraprep Antiseptic: 2 minute prep for Femoral CVP Time Out Performed: Yes Pt. Placed on Pulse Ox Monitor: Yes Central Line Prep: Chlorhexidine-Alcohol Combination Local Anesthesia Used: Lidocaine 1% Ultrasound Used for Placement: No Central Line Lumen Inserted: triple Central Line Length: 20 cm Post Procedure: Sutured in Place, Good Blood Return, All Ports Aspirated, Flushed, Capped, Sterile Dressing Applied Secured by: Suture Post procedure dressing: Gauze, Clear vapor permeable, Chlorhexidine disc ( Biopatch) Post Procedure X-Ray: No Patient Tolerated Procedure: Well Immediate Complications: None
[2017-10-27] MEDS ORDERED: Sodium Bicarbonate 8.4% 150 MEQ in Dextrose 5% In Water 850 ML IV SCH (08:45)
[2017-10-27] MEDS ORDERED: Sodium Chloride 0.9% 1,000 ML IV ONE (09:07)
--- NOTE | 2017-10-27 09:28 | CP.PCM.PN ---
Subjective - Date & Time of Evaluation Date of Evaluation: 10/27/17 Time of Evaluation: 09:00 - Subjective Subjective: seen and examined by me.Patient was awake and trying to pull things s/p Respiratory arrest,intubated last night,aspiration pneumonia/ARDS/Sepsis/ small cell lung ca with mets stage 4 Mitten on,s/p hypotension improving with Levophed d/w Daughter Maria Eugenia at beds side Objective - Vital Signs/Intake and Output Vital Signs (last 24 hours): Temp Pulse Resp BP Pulse Ox 98.6 F 98 H 28 H 59/38 L 97 10/26/17 16:00 10/27/17 08:55 10/27/17 08:55 10/27/17 08:55 10/27/17 08:55 Intake and Output: 10/27/17 10/27/17 06:59 18:59 Intake Total 964.8 145.2 Output Total 850 Balance 964.8 -704.8 - Medications Medications: Current Medications Albuterol/Ipratropium (Duoneb 3 Mg/0.5 Mg (3 Ml) Ud) 3 ml INH RQ6 [facility] Last Admin: 10/27/17 08:44 Dose: Not Given Dexamethasone (Decadron Inj) 4 mg IVP DAILY [facility] Last Admin: 10/26/17 10:35 Dose: 4 mg Donepezil HCl (Aricept) 10 mg PO HS [facility] Last Admin: 10/26/17 21:16 Dose: 10 mg Famotidine (Pepcid) 20 mg PO DAILY [facility] Last Admin: 10/26/17 10:36 Dose: 20 mg Metronidazole (Flagyl) 500 mg in 100 mls @ 100 mls/hr IVPB Q8H [facility] PRN Reason: Protocol Last Admin: 10/27/17 05:50 Dose: 100 mls/hr Aztreonam 2 gm/ Sodium (Chloride) 100 mls @ 200 mls/hr IVPB Q8H [facility] PRN Reason: Protocol Last Admin: 10/27/17 05:48 Dose: 200 mls/hr Doxycycline Hyclate 100 mg/ (Sodium Chloride) 100 mls @ 100 mls/hr IVPB Q12H [facility] PRN Reason: Protocol Last Admin: 10/27/17 02:00 Dose: 100 mls/hr Vancomycin/Sodium Chloride (Vancomycin 1 Gm/Ns 200 Ml) 1 gm in 200 mls @ 133 mls/hr IVPB Q12H [facility] PRN Reason: Protocol Stop: 11/01/17 00:31 Last Admin: 10/27/17 02:37 Dose: 133 mls/hr Norepinephrine Bitartrate 4 mg (/ Dextrose) 254 mls @ 15.24 mls/hr IV .[id number] PRN; Protocol; 4 MCG/MIN PRN Reason: TITRATE PER MD ORDER Last Admin: 10/27/17 08:55 Dose: 6 mcg/min, 22.86 mls/hr Sodium Bicarbonate 150 meq/ (Dextrose) 1,000 mls @ 100 mls/hr IV .Q10H [facility] Sodium Chloride (Sodium Chloride 0.9%) 1,000 mls @ 1,000 mls/hr IV .Q1H [facility] Stop: 10/27/17 10:06 Fentanyl Citrate 2,500 mcg/ (Sodium Chloride) 250 mls @ 19.05 mls/hr IV .Q13H8M [facility]; 2 MCG/KG/HR PRN Reason: Protocol Moxifloxacin HCl (Avelox Iv 400mg/250ml Ns) 400 mg in 250 mls @ 167 mls/hr IVPB DAILY [facility] PRN Reason: Protocol Ondansetron HCl (Zofran Inj) 4 mg IVP Q6 PRN PRN Reason: Nausea/Vomiting - Labs Labs: 10/27/17 06:48 10/27/17 06:48 - Constitutional Appears: Agitated - Head Exam Head Exam: ATRAUMATIC (tubated) - Eye Exam Eye Exam: Normal appearance Pupil Exam: Miosis - ENT Exam ENT Exam: Mucous Membranes Moist - Respiratory Exam Respiratory Exam: Decreased Breath Sounds, Rhonchi - Cardiovascular Exam Cardiovascular Exam: Tachycardia - GI/Abdominal Exam GI & Abdominal Exam: Distended, Soft, Diminished Bowel Sounds - Extremities Exam Extremities Exam: absent: Full ROM - Neurological Exam Neurological Exam: Awake (mild agitation) - Psychiatric Exam Psychiatric exam: Normal Affect - Skin Skin Exam: Normal Color Assessment and Plan - Assessment and Plan (Free Text) Plan: 1. Acute Respiratory failure on Ventilator Possible aspiration/ARDS/sepsis/rule out SC Metastatic lung cancer/small cell stage 4 Continue Azactum and flagyl.Vancomycin dn doxycycline added last night.Moxifloxacillin added this morning Lambert cultures done,Discussed with Dr Lomax. She will see him.we will continue current antibiotics 2.Sepsis/Immunocompromised state secondary to chemo High wbc,lactic acid and hypotension Fluids and Levophed as per intensive care physician continue antibiotics as above and follow cultures. d/w Dr Lomax.we will follow her recommendation 3. Stage IV Small cell lung carcinoma with mets to liver, right kidney, and now pancreas Heme/Onc consult, Dr Neely Dexamethasone 4mg IV QD 4.NSTMI EKG with T wave changes on anterior leads follow echo Not a candidate for anticoag/MRI brain / with possible brain mets 5. Acute Pancreatitis (likely from metastatic spread), Improved 6. Neutropenia/Anemia Secondary to chemotherapy Neutropenic precautions 7.Tobacco use 8. History of Alzheimer's 9. History of Anxiety Prognosis -poor Discussed with his Daughter Shellie (Her phone number [phone] )surrogate decision maker at bedside . She understands his condition and poor prognosis. He wanted MV support trial for few days.Full code at this time.
[2017-10-27 09:37] LABS: SQUAMOUS EPITHIAL 1 /hpf (0-5); URINE AMORPHOUS SEDIMENT MODERATE /ul (<OCC); URINE BACTERIA RARE (<OCC); URINE BILIRUBIN NEGATIVE (NEGATIVE); URINE BLOOD 1+ (NEGATIVE); URINE CLARITY Hazy (Clear); URINE COLOR Amber (YELLOW); URINE GLUCOSE (UA) 1+ mg/dL (Normal); URINE LEUKOCYTE ESTERASE TRACE Leu/uL (Negative); URINE PROTEIN 2+ mg/dL (NEGATIVE); URINE UROBILINOGEN NORMAL mg/dL (0.2-1.0)
[2017-10-27] MEDS ORDERED: Moxifloxacin IV 400mg/250ml NS 400 MG/250 ML BAG IVPB SCH (10:00)
[2017-10-27 10:03] LABS: ALB/GLOB RATIO 0.8 (1.0-2.1); ALBUMIN 2.3 g/dL (3.5-5.0); ALT/SGPT 48 U/L (21-72); AST/SGOT 71 U/L (17-59); BLOOD UREA NITROGEN 20 mg/dL (9-20); CALCIUM 7.6 mg/dl (8.6-10.4); GFR AFRICAN-AMERICAN > 60; GFR NON-AFRICAN AMERICAN 51
[2017-10-27] MEDS: Dexamethasone 4 mg/1 ml IVP SCH (10:05)
[2017-10-27 10:20] LABS: CK-MB 2.21 ng/mL (0.0-3.38)
[2017-10-27 10:33] LABS: B-TYPE NATRIURETIC PEPTIDE 3910 pg/mL (0-900)
[2017-10-27 10:39] LABS: BANDS 20 % (0-2); LYMPHOCYTE 21 % (20-40); METAMYELOCYTE 5 % (0-0); MONOCYTE 7 % (0-10); MYELOCYTE 18 % (0-0); NEUTROPHIL 25 % (50-75); REACTIVE LYMPHOCYTES 3 % (0-0); TOTAL CELLS COUNTED 100
[2017-10-27 10:40] LABS: NUCLEATED RED BLOOD CELL 0 % (0-0); PROMYELOCYTE 1 % (0-0)
[2017-10-27 10:44] LABS: PLATELET ESTIMATE NORMAL (NORMAL)
[2017-10-27 10:45] LABS: ANISOCYTOSIS SLIGHT; MICROCYTOSIS SLIGHT; OVALOCYTES SLIGHT; POIKILOCYTOSIS SLIGHT; POLYCHROMIC SLIGHT; SPHEROCYTES SLIGHT
[2017-10-27 10:46] LABS: LARGE PLATELETS PRESENT; SMUDGE CELLS PRESENT; TEARDROP CELLS SLIGHT
[2017-10-27 11:08] LABS: BARBITURATES, UR NEGATIVE (NEGATIVE); PHENCYCLIDINE, UR NEGATIVE (NEGATIVE)
[2017-10-27] MEDS ORDERED: Vitamin A/D oint 60G TP PRN (12:09)
[2017-10-27 12:43] LABS: BENZODIAZEPINES, UR POSITIVE (NEGATIVE); OPIATES, UR POSITIVE (NEGATIVE)
--- NOTE | 2017-10-27 12:50 | CP.CCUPN ---
<Becka Ta - Last Filed: 10/27/17 14:37> CCU Subjective - Physician Review Subjective (Free Text): Patient is seen and examined at bedside. Patient is very agitated. CCU Objective - Vital Signs / Intake & Output Vital Signs (Last 4 hours): Vital Signs Pulse Resp BP Pulse Ox 10/27/17 11:46 107 H 31 H 110/70 99 10/27/17 11:45 106 H 31 H 100 10/27/17 11:31 106 H 28 H 110/64 98 10/27/17 11:30 107 H 27 H 98 10/27/17 11:16 107 H 27 H 97/64 L 98 10/27/17 11:15 107 H 29 H 98 10/27/17 11:10 108 H 34 H 99 10/27/17 11:05 111 H 36 H 98 10/27/17 11:01 108 H 35 H 112/73 98 10/27/17 11:00 110 H 36 H 99 10/27/17 10:55 103 H 31 H 97 10/27/17 10:50 111 H 36 H 99 10/27/17 10:46 104 H 35 H 107/74 98 10/27/17 10:45 112 H 36 H 99 10/27/17 10:40 111 H 37 H 100 10/27/17 10:35 113 H 38 H 99 10/27/17 10:31 106 H 39 H 126/80 99 10/27/17 10:30 114 H 40 H 99 10/27/17 10:25 112 H 37 H 98 10/27/17 10:20 113 H 37 H 98 10/27/17 10:18 99 H 36 H 100/68 97 10/27/17 10:17 115 H 38 H 82/38 L 99 10/27/17 10:15 112 H 35 H 98 10/27/17 10:10 102 H 39 H 97 10/27/17 10:05 116 H 39 H 91 L 10/27/17 10:01 113 H 31 H 112/84 91 L 10/27/17 10:00 112 H 39 H 94 L 10/27/17 09:58 112 H 40 H 112/82 93 L 10/27/17 09:55 112 H 39 H 91 L 10/27/17 09:53 111 H 38 H 111/79 92 L 10/27/17 09:50 113 H 38 H 93 L 10/27/17 09:48 114 H 37 H 111/82 92 L 10/27/17 09:45 112 H 38 H 90 L 10/27/17 09:43 106 H 41 H 99/62 L 89 L 10/27/17 09:40 113 H 39 H 89 L 10/27/17 09:38 113 H 40 H 99/64 L 91 L 10/27/17 09:35 114 H 37 H 89 L 10/27/17 09:33 112 H 40 H 97/65 L 89 L 10/27/17 09:30 113 H 41 H 89 L 10/27/17 09:28 113 H 42 H 99/61 L 87 L 10/27/17 09:25 111 H 40 H 88 L 10/27/17 09:23 110 H 39 H 96/61 L 87 L 10/27/17 08:55 98 H 28 H 59/38 L 97 Intake and Output (Last 8hrs): Intake & Output 10/26/17 10/27/17 10/27/17 22:59 06:59 14:59 Intake Total 1060 404.8 1598.7 Output Total 960 Balance 1060 404.8 638.7 Intake: IV 4.8 89.2 Intake, IV Amount 114 633 8831.5 Left Forearm 400 Right Medial Port Femoral 76.2 Right Port-A-Cath 400 133.3 Right Proximal Port 1200 Femoral Right Wrist 0 Oral 660 100 Output: Urine 960 Condom 850 Urethral (Clay) 110 Oral Regurgitation 0 Other: # Voids Urethral (Clay) 1 Urine, Voided 2 # Bowel Movements 0 0 - Physical Exam Head: Positive for: Atraumatic, Normocephalic Pupils: Positive for: PERRL Extroacular Muscles: Positive for: EOMI Conjunctiva: Positive for: Normal Mouth: Positive for: Dry Respiratory/Chest: Positive for: Decreased Breath Sounds Cardiovascular: Positive for: Tachycardic Abdomen: Positive for: Normal Bowel Sounds. Negative for: Tenderness, Distention Upper Extremity: Positive for: Normal Inspection, NORMAL PULSES, Neurovascularly Intact, Capillary Refill < 2s Lower Extremity: Positive for: Normal Inspection, NORMAL PULSES, Neurovascularly Intact, Capillary Refill < 2 s Skin: Positive for: Warm, Dry, Normal Color Psychiatric: Positive for: Alert - Medications Active Medications: Active Medications Generic Name Dose Route Start Last Admin Trade Name Freq PRN Reason Stop Dose Admin Albuterol/Ipratropium 3 ml 10/26/17 20:00 10/27/17 08:44 Duoneb 3 Mg/0.5 Mg (3 Ml) Ud INH Not Given RQ6 LISA Dexamethasone 4 mg 10/23/17 15:15 10/27/17 10:05 Decadron Inj IVP 4 mg DAILY LISA Administration Donepezil HCl 10 mg 10/20/17 22:00 10/26/17 21:16 Aricept PO 10 mg HS LISA Administration Famotidine 20 mg 10/22/17 10:00 10/27/17 10:05 Pepcid PO 20 mg DAILY LISA Administration Metronidazole 500 mg in 100 mls @ 100 mls/hr 10/20/17 22:00 10/27/17 05:50 Flagyl IVPB 100 mls/hr Q8H LISA Administration Protocol Aztreonam 2 gm/ Sodium 100 mls @ 200 mls/hr 10/20/17 22:30 10/27/17 05:48 Chloride IVPB 200 mls/hr Q8H LISA Administration Protocol Doxycycline Hyclate 100 mg/ 100 mls @ 100 mls/hr 10/27/17 00:30 10/27/17 12: 21 Sodium Chloride IVPB 100 mls/hr Q12H LISA Administration Protocol Vancomycin/Sodium Chloride 1 gm in 200 mls @ 133 mls/hr 10/27/17 00:30 12:21 Vancomycin 1 Gm/Ns 200 Ml IVPB 11/01/17 00:31 133 mls/hr Q12H LISA Administration Protocol Norepinephrine Bitartrate 4 mg 254 mls @ 15.24 mls/hr 10/27/17 08:30 10:30 / Dextrose IV 8 mcg/min .[id number] PRN 30.48 mls/hr TITRATE PER MD ORDER Titration Protocol 4 MCG/MIN Sodium Bicarbonate 150 meq/ 1,000 mls @ 100 mls/hr 10/27/17 08:45 10/27/17 09 :15 Dextrose IV 100 mls/hr .Q10H LISA Administration Fentanyl Citrate 2,500 mcg/ 250 mls @ 19.05 mls/hr 10/27/17 09:30 10/27/17 10 :28 Sodium Chloride IV 2 mcg/kg/hr .Q13H8M LISA 19.05 mls/hr Protocol Administration 2 MCG/KG/HR Moxifloxacin HCl 400 mg 10/27/17 10:00 10/27/17 10:05 Avelox GT 400 mg DAILY [facility] Administration Protocol Ondansetron HCl 4 mg 10/20/17 18:06 Zofran Inj IVP Q6 PRN Nausea/Vomiting Vitamin A 0 applic 10/27/17 12:09 Vitamin A&D TP Q8 PRN Dry skin - Patient Studies Lab Studies: Lab Studies 10/27/17 10/27/17 10/27/17 Range/Units 11:17 10:41 10:41 WBC (4.8-10.8) K/uL RBC (4.40-5.90) Mil/uL Hgb (12.0-18.0) g/dL Hct (35.0-51.0) % MCV (80.0-94.0) fL MCH (27.0-31.0) pg MCHC (33.0-37.0) g/dL RDW (11.5-14.5) % Plt Count (130-400) K/uL MPV (7.2-11.7) fL Neut % (Auto) (50.0-75.0) % Lymph % (Auto) (20.0-40.0) % [place] % (Auto) (0.0-10.0) % Eos % (Auto) (0.0-4.0) % Baso % (Auto) (0.0-2.0) % Neut # (Auto) (1.8-7.0) K/uL Lymph # (Auto) (1.0-4.3) K/uL [place] # (Auto) (0.0-0.8) K/uL Eos # (Auto) (0.0-0.7) K/uL Baso # (Auto) (0.0-0.2) K/uL Neutrophils % (Manual) (50-75) % Band Neutrophils % (0-2) % Lymphocytes % (Manual) (20-40) % Reactive Lymphs % (0-0) % Monocytes % (Manual) (0-10) % Metamyelocytes % (0-0) % Myelocytes % (0-0) % Promyelocytes % (0-0) % Plasma Cell % (Manual) Nucleated RBC % (0-0) % Smudge Cells Platelet Estimate (NORMAL) Large Platelets Polychromasia Poikilocytosis (manual Anisocytosis (manual) Microcytosis (manual) Macrocytosis (manual) Spherocytes Tear Drop Cells Ovalocytes Puncture Site pCO2 (35-45) mm/Hg pO2 (80-100) mm/Hg HCO3 (21-28) mmol/L ABG pH (7.35-7.45) ABG Total CO2 (22-28) mmol/L ABG O2 Saturation (95-98) % ABG Base Excess (-2.0-3.0) mmol/L ABG Hemoglobin (11.7-17.4) g/dL ABG Carboxyhemoglobin (0.5-1.5) % POC ABG HHb (Measured) (0.0-5.0) % ABG Methemoglobin (0.0-3.0) % Jt Test ABG Potassium (3.6-5.2) mmol/L A-a O2 Difference mm/Hg Respiratory Index Hgb O2 Saturation (95.0-98.0) % Glucose (75-110) mg/dl Lactate (0.7-2.1) mmol/L Vent Mode Mechanical Rate FiO2 % Tidal Volume PEEP Crit Value Called To Crit Value Called By Crit Value Read Back Blood Gas Notified Time Sodium (132-148) mmol/L Potassium (3.6-5.2) mmol/L Chloride (98-107) mmol/L Carbon Dioxide (22-30) mmol/L Anion Gap (10-20) BUN (9-20) mg/dL Creatinine (0.8-1.5) mg/dL Est GFR ( Amer) Est GFR (Non-Af Amer) POC Glucose (mg/dL) 188 H (65-110) mg/dL Random Glucose (75-110) mg/dL Lactic Acid (0.7-2.1) mmol/L Calcium (8.6-10.4) mg/dl Phosphorus (2.5-4.5) mg/dL Magnesium (1.6-2.3) mg/dL Total Bilirubin (0.2-1.3) mg/dL AST (17-59) U/L ALT (21-72) U/L Alkaline Phosphatase (38-126) U/L CK-MB (Mass) (0.0-3.38) ng/mL Troponin I (0.00-0.120) ng/mL NT-Pro-B Natriuret Pep (0-900) pg/mL Total Protein (6.3-8.3) g/dL Albumin (3.5-5.0) g/dL Globulin (2.2-3.9) gm/dL Albumin/Globulin Ratio (1.0-2.1) Arterial Blood Potassium (3.6-5.2) mmol/L Urine Color (YELLOW) Urine Clarity (Clear) Urine pH (5.0-8.0) Ur Specific [place] (1.003-1.030) Urine Protein (NEGATIVE) mg/dL Urine Glucose (UA) (Normal) mg/dL Urine Ketones (NEGATIVE) mg/dL Urine Blood (NEGATIVE) Urine Nitrate (NEGATIVE) Urine Bilirubin (NEGATIVE) Urine Urobilinogen (0.2-1.0) mg/dL Ur Leukocyte Esterase (Negative) Faina/uL Urine WBC (Auto) (0-5) /hpf Urine RBC (Auto) (0-3) /hpf Ur Squamous Epith Cells (0-5) /hpf Amorphous Sediment (<OCC) /ul Urine Bacteria (<OCC) Random Vancomycin 10.4 ug/mL Urine Opiates Screen Positive H (NEGATIVE) Urine Methadone Screen Negative (NEGATIVE) Ur Barbiturates Screen Negative (NEGATIVE) Ur Phencyclidine Scrn Negative (NEGATIVE) Ur Amphetamines Screen Negative (NEGATIVE) U Benzodiazepines Scrn Positive (NEGATIVE) U Oth Cocaine Metabols Negative (NEGATIVE) U Cannabinoids Screen Negative (NEGATIVE) 10/27/17 10/27/17 10/27/17 Range/Units 09:15 09:15 09:15 WBC (4.8-10.8) K/uL RBC (4.40-5.90) Mil/uL Hgb (12.0-18.0) g/dL Hct (35.0-51.0) % MCV (80.0-94.0) fL MCH (27.0-31.0) pg MCHC (33.0-37.0) g/dL RDW (11.5-14.5) % Plt Count (130-400) K/uL MPV (7.2-11.7) fL Neut % (Auto) (50.0-75.0) % Lymph % (Auto) (20.0-40.0) % [place] % (Auto) (0.0-10.0) % Eos % (Auto) (0.0-4.0) % Baso % (Auto) (0.0-2.0) % Neut # (Auto) (1.8-7.0) K/uL Lymph # (Auto) (1.0-4.3) K/uL [place] # (Auto) (0.0-0.8) K/uL Eos # (Auto) (0.0-0.7) K/uL Baso # (Auto) (0.0-0.2) K/uL Neutrophils % (Manual) (50-75) % Band Neutrophils % (0-2) % Lymphocytes % (Manual) (20-40) % Reactive Lymphs % (0-0) % Monocytes % (Manual) (0-10) % Metamyelocytes % (0-0) % Myelocytes % (0-0) % Promyelocytes % (0-0) % Plasma Cell % (Manual) Nucleated RBC % (0-0) % Smudge Cells Platelet Estimate (NORMAL) Large Platelets Polychromasia Poikilocytosis (manual Anisocytosis (manual) Microcytosis (manual) Macrocytosis (manual) Spherocytes Tear Drop Cells Ovalocytes Puncture Site pCO2 (35-45) mm/Hg pO2 (80-100) mm/Hg HCO3 (21-28) mmol/L ABG pH (7.35-7.45) ABG Total CO2 (22-28) mmol/L ABG O2 Saturation (95-98) % ABG Base Excess (-2.0-3.0) mmol/L ABG Hemoglobin (11.7-17.4) g/dL ABG Carboxyhemoglobin (0.5-1.5) % POC ABG HHb (Measured) (0.0-5.0) % ABG Methemoglobin (0.0-3.0) % Jt Test ABG Potassium (3.6-5.2) mmol/L A-a O2 Difference mm/Hg Respiratory Index Hgb O2 Saturation (95.0-98.0) % Glucose (75-110) mg/dl Lactate (0.7-2.1) mmol/L Vent Mode Mechanical Rate FiO2 % Tidal Volume PEEP Crit Value Called To Crit Value Called By Crit Value Read Back Blood Gas Notified Time Sodium 142 (132-148) mmol/L Potassium 4.0 (3.6-5.2) mmol/L Chloride 107 (98-107) mmol/L Carbon Dioxide 23 (22-30) mmol/L Anion Gap 16 (10-20) BUN 20 (9-20) mg/dL Creatinine 1.4 (0.8-1.5) mg/dL Est GFR ( Amer) > 60 Est GFR (Non-Af Amer) 51 POC Glucose (mg/dL) (65-110) mg/dL Random Glucose 157 H (75-110) mg/dL Lactic Acid 4.0 H* (0.7-2.1) mmol/L Calcium 7.6 L (8.6-10.4) mg/dl Phosphorus 4.2 (2.5-4.5) mg/dL Magnesium 2.0 (1.6-2.3) mg/dL Total Bilirubin 0.6 (0.2-1.3) mg/dL AST 71 H D (17-59) U/L ALT 48 (21-72) U/L Alkaline Phosphatase 272 H (38-126) U/L CK-MB (Mass) 2.21 (0.0-3.38) ng/mL Troponin I 0.2830 H* (0.00-0.120) ng/mL NT-Pro-B Natriuret Pep 3910 H (0-900) pg/mL Total Protein 5.2 L (6.3-8.3) g/dL Albumin 2.3 L (3.5-5.0) g/dL Globulin 2.9 (2.2-3.9) gm/dL Albumin/Globulin Ratio 0.8 L (1.0-2.1) Arterial Blood Potassium (3.6-5.2) mmol/L Urine Color Beth (YELLOW) Urine Clarity Hazy (Clear) Urine pH 5.0 (5.0-8.0) Ur Specific [place] 1.019 (1.003-1.030) Urine Protein 2+ H (NEGATIVE) mg/dL Urine Glucose (UA) 1+ H (Normal) mg/dL Urine Ketones Negative (NEGATIVE) mg/dL Urine Blood 1+ H (NEGATIVE) Urine Nitrate Negative (NEGATIVE) Urine Bilirubin Negative (NEGATIVE) Urine Urobilinogen Normal (0.2-1.0) mg/dL Ur Leukocyte Esterase Trace (Negative) Faina/uL Urine WBC (Auto) 12 H (0-5) /hpf Urine RBC (Auto) 5 H (0-3) /hpf Ur Squamous Epith Cells 1 (0-5) /hpf Amorphous Sediment Moderate H (<OCC) /ul Urine Bacteria Rare (<OCC) Random Vancomycin ug/mL Urine Opiates Screen (NEGATIVE) Urine Methadone Screen (NEGATIVE) Ur Barbiturates Screen (NEGATIVE) Ur Phencyclidine Scrn (NEGATIVE) Ur Amphetamines Screen (NEGATIVE) U Benzodiazepines Scrn (NEGATIVE) U Oth Cocaine Metabols (NEGATIVE) U Cannabinoids Screen (NEGATIVE) 10/27/17 10/27/17 10/27/17 Range/Units 08:32 07:26 06:48 WBC (4.8-10.8) K/uL RBC (4.40-5.90) Mil/uL Hgb (12.0-18.0) g/dL Hct (35.0-51.0) % MCV (80.0-94.0) fL MCH (27.0-31.0) pg MCHC (33.0-37.0) g/dL RDW (11.5-14.5) % Plt Count (130-400) K/uL MPV (7.2-11.7) fL Neut % (Auto) (50.0-75.0) % Lymph % (Auto) (20.0-40.0) % [place] % (Auto) (0.0-10.0) % Eos % (Auto) (0.0-4.0) % Baso % (Auto) (0.0-2.0) % Neut # (Auto) (1.8-7.0) K/uL Lymph # (Auto) (1.0-4.3) K/uL [place] # (Auto) (0.0-0.8) K/uL Eos # (Auto) (0.0-0.7) K/uL Baso # (Auto) (0.0-0.2) K/uL Neutrophils % (Manual) (50-75) % Band Neutrophils % (0-2) % Lymphocytes % (Manual) (20-40) % Reactive Lymphs % (0-0) % Monocytes % (Manual) (0-10) % Metamyelocytes % (0-0) % Myelocytes % (0-0) % Promyelocytes % (0-0) % Plasma Cell % (Manual) Nucleated RBC % (0-0) % Smudge Cells Platelet Estimate (NORMAL) Large Platelets Polychromasia Poikilocytosis (manual Anisocytosis (manual) Microcytosis (manual) Macrocytosis (manual) Spherocytes Tear Drop Cells Ovalocytes Puncture Site Rfa pCO2 46 H (35-45) mm/Hg pO2 17 L* (80-100) mm/Hg HCO3 14.6 L (21-28) mmol/L ABG pH 7.19 L* (7.35-7.45) ABG Total CO2 19.0 L (22-28) mmol/L ABG O2 Saturation 27.9 L (95-98) % ABG Base Excess -10.4 L (-2.0-3.0) mmol/L ABG Hemoglobin (11.7-17.4) g/dL ABG Carboxyhemoglobin (0.5-1.5) % POC ABG HHb (Measured) (0.0-5.0) % ABG Methemoglobin (0.0-3.0) % Jt Test Na ABG Potassium 2.9 L (3.6-5.2) mmol/L A-a O2 Difference 425.0 mm/Hg Respiratory Index 25.0 Hgb O2 Saturation (95.0-98.0) % Glucose 131 H (75-110) mg/dl Lactate 2.7 H (0.7-2.1) mmol/L Vent Mode Simv/pc Mechanical Rate 20 FiO2 70.0 % Tidal Volume PEEP 5 Crit Value Called To Crit Value Called By Rj.romaine,manolo Crit Value Read Back Y Blood Gas Notified Time 845 Sodium 143.0 140 (132-148) mmol/L Potassium 3.9 (3.6-5.2) mmol/L Chloride 114.0 H 107 (98-107) mmol/L Carbon Dioxide 20 L (22-30) mmol/L Anion Gap 17 (10-20) BUN 18 (9-20) mg/dL Creatinine 1.3 (0.8-1.5) mg/dL Est GFR ( Amer) > 60 Est GFR (Non-Af Amer) 56 POC Glucose (mg/dL) 193 H (65-110) mg/dL Random Glucose 217 H (75-110) mg/dL Lactic Acid (0.7-2.1) mmol/L Calcium 8.1 L (8.6-10.4) mg/dl Phosphorus (2.5-4.5) mg/dL Magnesium (1.6-2.3) mg/dL Total Bilirubin 0.7 (0.2-1.3) mg/dL AST 92 H D (17-59) U/L ALT 45 (21-72) U/L Alkaline Phosphatase 331 H D (38-126) U/L CK-MB (Mass) (0.0-3.38) ng/mL Troponin I (0.00-0.120) ng/mL NT-Pro-B Natriuret Pep (0-900) pg/mL Total Protein 6.0 L (6.3-8.3) g/dL Albumin 2.7 L (3.5-5.0) g/dL Globulin 3.3 (2.2-3.9) gm/dL Albumin/Globulin Ratio 0.8 L (1.0-2.1) Arterial Blood Potassium 2.9 L (3.6-5.2) mmol/L Urine Color (YELLOW) Urine Clarity (Clear) Urine pH (5.0-8.0) Ur Specific [place] (1.003-1.030) Urine Protein (NEGATIVE) mg/dL Urine Glucose (UA) (Normal) mg/dL Urine Ketones (NEGATIVE) mg/dL Urine Blood (NEGATIVE) Urine Nitrate (NEGATIVE) Urine Bilirubin (NEGATIVE) Urine Urobilinogen (0.2-1.0) mg/dL Ur Leukocyte Esterase (Negative) Faina/uL Urine WBC (Auto) (0-5) /hpf Urine RBC (Auto) (0-3) /hpf Ur Squamous Epith Cells (0-5) /hpf Amorphous Sediment (<OCC) /ul Urine Bacteria (<OCC) Random Vancomycin ug/mL Urine Opiates Screen (NEGATIVE) Urine Methadone Screen (NEGATIVE) Ur Barbiturates Screen (NEGATIVE) Ur Phencyclidine Scrn (NEGATIVE) Ur Amphetamines Screen (NEGATIVE) U Benzodiazepines Scrn (NEGATIVE) U Oth Cocaine Metabols (NEGATIVE) U Cannabinoids Screen (NEGATIVE) 10/27/17 10/27/17 10/27/17 Range/Units 06:48 05:22 02:06 WBC 28.5 H D (4.8-10.8) K/uL RBC 3.72 L (4.40-5.90) Mil/uL Hgb 10.0 L (12.0-18.0) g/dL Hct 30.6 L (35.0-51.0) % MCV 82.3 (80.0-94.0) fL MCH 27.0 (27.0-31.0) pg MCHC 32.8 L (33.0-37.0) g/dL RDW 19.8 H (11.5-14.5) % Plt Count 138 (130-400) K/uL MPV 9.6 (7.2-11.7) fL Neut % (Auto) 86.0 H (50.0-75.0) % Lymph % (Auto) 8.4 L (20.0-40.0) % [place] % (Auto) 5.1 (0.0-10.0) % Eos % (Auto) 0.1 (0.0-4.0) % Baso % (Auto) 0.4 (0.0-2.0) % Neut # (Auto) 24.5 H (1.8-7.0) K/uL Lymph # (Auto) 2.4 (1.0-4.3) K/uL [place] # (Auto) 1.5 H (0.0-0.8) K/uL Eos # (Auto) 0.0 (0.0-0.7) K/uL Baso # (Auto) 0.1 (0.0-0.2) K/uL Neutrophils % (Manual) 25 L (50-75) % Band Neutrophils % 20 H* (0-2) % Lymphocytes % (Manual) 21 (20-40) % Reactive Lymphs % 3 H (0-0) % Monocytes % (Manual) 7 (0-10) % Metamyelocytes % 5 H (0-0) % Myelocytes % 18 H (0-0) % Promyelocytes % 1 H (0-0) % Plasma Cell % (Manual) TEST NOT PERFORMED Nucleated RBC % 0 (0-0) % Smudge Cells Present Platelet Estimate Normal (NORMAL) Large Platelets Present Polychromasia Slight Poikilocytosis (manual Slight Anisocytosis (manual) Slight Microcytosis (manual) Slight Macrocytosis (manual) Slight Spherocytes Slight Tear Drop Cells Slight Ovalocytes Slight Puncture Site Rb pCO2 50 H (35-45) mm/Hg pO2 53 L (80-100) mm/Hg HCO3 18.2 L (21-28) mmol/L ABG pH 7.20 L (7.35-7.45) ABG Total CO2 21.0 L (22-28) mmol/L ABG O2 Saturation 89.2 L (95-98) % ABG Base Excess -8.4 L (-2.0-3.0) mmol/L ABG Hemoglobin 10.6 L (11.7-17.4) g/dL ABG Carboxyhemoglobin 2.4 H (0.5-1.5) % POC ABG HHb (Measured) 10.5 H (0.0-5.0) % ABG Methemoglobin 0.4 (0.0-3.0) % Jt Test Na ABG Potassium (3.6-5.2) mmol/L A-a O2 Difference 598.0 mm/Hg Respiratory Index 11.3 Hgb O2 Saturation 86.7 L (95.0-98.0) % Glucose (75-110) mg/dl Lactate (0.7-2.1) mmol/L Vent Mode Prvc Mechanical Rate 20 FiO2 100.0 % Tidal Volume 400 PEEP 12 Crit Value Called To Crit Value Called By Crit Value Read Back Blood Gas Notified Time Sodium (132-148) mmol/L Potassium (3.6-5.2) mmol/L Chloride (98-107) mmol/L Carbon Dioxide (22-30) mmol/L Anion Gap (10-20) BUN (9-20) mg/dL Creatinine (0.8-1.5) mg/dL Est GFR ( Amer) Est GFR (Non-Af Amer) POC Glucose (mg/dL) 273 H (65-110) mg/dL Random Glucose (75-110) mg/dL Lactic Acid (0.7-2.1) mmol/L Calcium (8.6-10.4) mg/dl Phosphorus (2.5-4.5) mg/dL Magnesium (1.6-2.3) mg/dL Total Bilirubin (0.2-1.3) mg/dL AST (17-59) U/L ALT (21-72) U/L Alkaline Phosphatase (38-126) U/L CK-MB (Mass) (0.0-3.38) ng/mL Troponin I (0.00-0.120) ng/mL NT-Pro-B Natriuret Pep (0-900) pg/mL Total Protein (6.3-8.3) g/dL Albumin (3.5-5.0) g/dL Globulin (2.2-3.9) gm/dL Albumin/Globulin Ratio (1.0-2.1) Arterial Blood Potassium (3.6-5.2) mmol/L Urine Color (YELLOW) Urine Clarity (Clear) Urine pH (5.0-8.0) Ur Specific [place] (1.003-1.030) Urine Protein (NEGATIVE) mg/dL Urine Glucose (UA) (Normal) mg/dL Urine Ketones (NEGATIVE) mg/dL Urine Blood (NEGATIVE) Urine Nitrate (NEGATIVE) Urine Bilirubin (NEGATIVE) Urine Urobilinogen (0.2-1.0) mg/dL Ur Leukocyte Esterase (Negative) Faina/uL Urine WBC (Auto) (0-5) /hpf Urine RBC (Auto) (0-3) /hpf Ur Squamous Epith Cells (0-5) /hpf Amorphous Sediment (<OCC) /ul Urine Bacteria (<OCC) Random Vancomycin ug/mL Urine Opiates Screen (NEGATIVE) Urine Methadone Screen (NEGATIVE) Ur Barbiturates Screen (NEGATIVE) Ur Phencyclidine Scrn (NEGATIVE) Ur Amphetamines Screen (NEGATIVE) U Benzodiazepines Scrn (NEGATIVE) U Oth Cocaine Metabols (NEGATIVE) U Cannabinoids Screen (NEGATIVE) 10/27/17 10/26/17 10/26/17 Range/Units 01:38 23:25 20:55 WBC (4.8-10.8) K/uL RBC (4.40-5.90) Mil/uL Hgb (12.0-18.0) g/dL Hct (35.0-51.0) % MCV (80.0-94.0) fL MCH (27.0-31.0) pg MCHC (33.0-37.0) g/dL RDW (11.5-14.5) % Plt Count (130-400) K/uL MPV (7.2-11.7) fL Neut % (Auto) (50.0-75.0) % Lymph % (Auto) (20.0-40.0) % [place] % (Auto) (0.0-10.0) % Eos % (Auto) (0.0-4.0) % Baso % (Auto) (0.0-2.0) % Neut # (Auto) (1.8-7.0) K/uL Lymph # (Auto) (1.0-4.3) K/uL [place] # (Auto) (0.0-0.8) K/uL Eos # (Auto) (0.0-0.7) K/uL Baso # (Auto) (0.0-0.2) K/uL Neutrophils % (Manual) (50-75) % Band Neutrophils % (0-2) % Lymphocytes % (Manual) (20-40) % Reactive Lymphs % (0-0) % Monocytes % (Manual) (0-10) % Metamyelocytes % (0-0) % Myelocytes % (0-0) % Promyelocytes % (0-0) % Plasma Cell % (Manual) Nucleated RBC % (0-0) % Smudge Cells Platelet Estimate (NORMAL) Large Platelets Polychromasia Poikilocytosis (manual Anisocytosis (manual) Microcytosis (manual) Macrocytosis (manual) Spherocytes Tear Drop Cells Ovalocytes Puncture Site Rb pCO2 43 (35-45) mm/Hg pO2 49 L (80-100) mm/Hg HCO3 16.2 L (21-28) mmol/L ABG pH 7.20 L (7.35-7.45) ABG Total CO2 18.1 L (22-28) mmol/L ABG O2 Saturation 83.5 L (95-98) % ABG Base Excess -10.7 L (-2.0-3.0) mmol/L ABG Hemoglobin 10.9 L (11.7-17.4) g/dL ABG Carboxyhemoglobin 2.8 H (0.5-1.5) % POC ABG HHb (Measured) 15.9 H (0.0-5.0) % ABG Methemoglobin 0.6 (0.0-3.0) % Jt Test Na ABG Potassium (3.6-5.2) mmol/L A-a O2 Difference 610.0 mm/Hg Respiratory Index 12.4 Hgb O2 Saturation 80.7 L (95.0-98.0) % Glucose (75-110) mg/dl Lactate (0.7-2.1) mmol/L Vent Mode Prvc Mechanical Rate 16 FiO2 100.0 % Tidal Volume 450 PEEP 5 Crit Value Called To Crit Value Called By Crit Value Read Back Blood Gas Notified Time Sodium (132-148) mmol/L Potassium (3.6-5.2) mmol/L Chloride (98-107) mmol/L Carbon Dioxide (22-30) mmol/L Anion Gap (10-20) BUN (9-20) mg/dL Creatinine (0.8-1.5) mg/dL Est GFR ( Amer) Est GFR (Non-Af Amer) POC Glucose (mg/dL) 184 H 146 H (65-110) mg/dL Random Glucose (75-110) mg/dL Lactic Acid (0.7-2.1) mmol/L Calcium (8.6-10.4) mg/dl Phosphorus (2.5-4.5) mg/dL Magnesium (1.6-2.3) mg/dL Total Bilirubin (0.2-1.3) mg/dL AST (17-59) U/L ALT (21-72) U/L Alkaline Phosphatase (38-126) U/L CK-MB (Mass) (0.0-3.38) ng/mL Troponin I (0.00-0.120) ng/mL NT-Pro-B Natriuret Pep (0-900) pg/mL Total Protein (6.3-8.3) g/dL Albumin (3.5-5.0) g/dL Globulin (2.2-3.9) gm/dL Albumin/Globulin Ratio (1.0-2.1) Arterial Blood Potassium (3.6-5.2) mmol/L Urine Color (YELLOW) Urine Clarity (Clear) Urine pH (5.0-8.0) Ur Specific [place] (1.003-1.030) Urine Protein (NEGATIVE) mg/dL Urine Glucose (UA) (Normal) mg/dL Urine Ketones (NEGATIVE) mg/dL Urine Blood (NEGATIVE) Urine Nitrate (NEGATIVE) Urine Bilirubin (NEGATIVE) Urine Urobilinogen (0.2-1.0) mg/dL Ur Leukocyte Esterase (Negative) Faina/uL Urine WBC (Auto) (0-5) /hpf Urine RBC (Auto) (0-3) /hpf Ur Squamous Epith Cells (0-5) /hpf Amorphous Sediment (<OCC) /ul Urine Bacteria (<OCC) Random Vancomycin ug/mL Urine Opiates Screen (NEGATIVE) Urine Methadone Screen (NEGATIVE) Ur Barbiturates Screen (NEGATIVE) Ur Phencyclidine Scrn (NEGATIVE) Ur Amphetamines Screen (NEGATIVE) U Benzodiazepines Scrn (NEGATIVE) U Oth Cocaine Metabols (NEGATIVE) U Cannabinoids Screen (NEGATIVE) 10/26/17 Range/Units 16:29 WBC (4.8-10.8) K/uL RBC (4.40-5.90) Mil/uL Hgb (12.0-18.0) g/dL Hct (35.0-51.0) % MCV (80.0-94.0) fL MCH (27.0-31.0) pg MCHC (33.0-37.0) g/dL RDW (11.5-14.5) % Plt Count (130-400) K/uL MPV (7.2-11.7) fL Neut % (Auto) (50.0-75.0) % Lymph % (Auto) (20.0-40.0) % [place] % (Auto) (0.0-10.0) % Eos % (Auto) (0.0-4.0) % Baso % (Auto) (0.0-2.0) % Neut # (Auto) (1.8-7.0) K/uL Lymph # (Auto) (1.0-4.3) K/uL [place] # (Auto) (0.0-0.8) K/uL Eos # (Auto) (0.0-0.7) K/uL Baso # (Auto) (0.0-0.2) K/uL Neutrophils % (Manual) (50-75) % Band Neutrophils % (0-2) % Lymphocytes % (Manual) (20-40) % Reactive Lymphs % (0-0) % Monocytes % (Manual) (0-10) % Metamyelocytes % (0-0) % Myelocytes % (0-0) % Promyelocytes % (0-0) % Plasma Cell % (Manual) Nucleated RBC % (0-0) % Smudge Cells Platelet Estimate (NORMAL) Large Platelets Polychromasia Poikilocytosis (manual Anisocytosis (manual) Microcytosis (manual) Macrocytosis (manual) Spherocytes Tear Drop Cells Ovalocytes Puncture Site pCO2 (35-45) mm/Hg pO2 (80-100) mm/Hg HCO3 (21-28) mmol/L ABG pH (7.35-7.45) ABG Total CO2 (22-28) mmol/L ABG O2 Saturation (95-98) % ABG Base Excess (-2.0-3.0) mmol/L ABG Hemoglobin (11.7-17.4) g/dL ABG Carboxyhemoglobin (0.5-1.5) % POC ABG HHb (Measured) (0.0-5.0) % ABG Methemoglobin (0.0-3.0) % Jt Test ABG Potassium (3.6-5.2) mmol/L A-a O2 Difference mm/Hg Respiratory Index Hgb O2 Saturation (95.0-98.0) % Glucose (75-110) mg/dl Lactate (0.7-2.1) mmol/L Vent Mode Mechanical Rate FiO2 % Tidal Volume PEEP Crit Value Called To Crit Value Called By Crit Value Read Back Blood Gas Notified Time Sodium (132-148) mmol/L Potassium (3.6-5.2) mmol/L Chloride (98-107) mmol/L Carbon Dioxide (22-30) mmol/L Anion Gap (10-20) BUN (9-20) mg/dL Creatinine (0.8-1.5) mg/dL Est GFR ( Amer) Est GFR (Non-Af Amer) POC Glucose (mg/dL) 135 H (65-110) mg/dL Random Glucose (75-110) mg/dL Lactic Acid (0.7-2.1) mmol/L Calcium (8.6-10.4) mg/dl Phosphorus (2.5-4.5) mg/dL Magnesium (1.6-2.3) mg/dL Total Bilirubin (0.2-1.3) mg/dL AST (17-59) U/L ALT (21-72) U/L Alkaline Phosphatase (38-126) U/L CK-MB (Mass) (0.0-3.38) ng/mL Troponin I (0.00-0.120) ng/mL NT-Pro-B Natriuret Pep (0-900) pg/mL Total Protein (6.3-8.3) g/dL Albumin (3.5-5.0) g/dL Globulin (2.2-3.9) gm/dL Albumin/Globulin Ratio (1.0-2.1) Arterial Blood Potassium (3.6-5.2) mmol/L Urine Color (YELLOW) Urine Clarity (Clear) Urine pH (5.0-8.0) Ur Specific [place] (1.003-1.030) Urine Protein (NEGATIVE) mg/dL Urine Glucose (UA) (Normal) mg/dL Urine Ketones (NEGATIVE) mg/dL Urine Blood (NEGATIVE) Urine Nitrate (NEGATIVE) Urine Bilirubin (NEGATIVE) Urine Urobilinogen (0.2-1.0) mg/dL Ur Leukocyte Esterase (Negative) Faina/uL Urine WBC (Auto) (0-5) /hpf Urine RBC (Auto) (0-3) /hpf Ur Squamous Epith Cells (0-5) /hpf Amorphous Sediment (<OCC) /ul Urine Bacteria (<OCC) Random Vancomycin ug/mL Urine Opiates Screen (NEGATIVE) Urine Methadone Screen (NEGATIVE) Ur Barbiturates Screen (NEGATIVE) Ur Phencyclidine Scrn (NEGATIVE) Ur Amphetamines Screen (NEGATIVE) U Benzodiazepines Scrn (NEGATIVE) U Oth Cocaine Metabols (NEGATIVE) U Cannabinoids Screen (NEGATIVE) Laboratory Results - last 24 hr 10/26/17 10/26/17 10/26/17 16:29 20:55 23:25 WBC RBC Hgb Hct MCV MCH MCHC RDW Plt Count MPV Neut % (Auto) Lymph % (Auto) [place] % (Auto) Eos % (Auto) Baso % (Auto) Neut # (Auto) Lymph # (Auto) [place] # (Auto) Eos # (Auto) Baso # (Auto) Neutrophils % (Manual) Band Neutrophils % Lymphocytes % (Manual) Reactive Lymphs % Monocytes % (Manual) Metamyelocytes % Myelocytes % Promyelocytes % Plasma Cell % (Manual) Nucleated RBC % Smudge Cells Platelet Estimate Large Platelets Polychromasia Poikilocytosis (manual Anisocytosis (manual) Microcytosis (manual) Macrocytosis (manual) Spherocytes Tear Drop Cells Ovalocytes Puncture Site pCO2 pO2 HCO3 ABG pH ABG Total CO2 ABG O2 Saturation ABG Base Excess ABG Hemoglobin ABG Carboxyhemoglobin POC ABG HHb (Measured) ABG Methemoglobin Jt Test ABG Potassium A-a O2 Difference Respiratory Index Hgb O2 Saturation Glucose Lactate Vent Mode Mechanical Rate FiO2 Tidal Volume PEEP Crit Value Called To Crit Value Called By Crit Value Read Back Blood Gas Notified Time Sodium Potassium Chloride Carbon Dioxide Anion Gap BUN Creatinine Est GFR ( Amer) Est GFR (Non-Af Amer) POC Glucose (mg/dL) 135 H 146 H 184 H Random Glucose Lactic Acid Calcium Phosphorus Magnesium Total Bilirubin AST ALT Alkaline Phosphatase CK-MB (Mass) Troponin I NT-Pro-B Natriuret Pep Total Protein Albumin Globulin Albumin/Globulin Ratio Arterial Blood Potassium Urine Color Urine Clarity Urine pH Ur Specific [place] Urine Protein Urine Glucose (UA) Urine Ketones Urine Blood Urine Nitrate Urine Bilirubin Urine Urobilinogen Ur Leukocyte Esterase Urine WBC (Auto) Urine RBC (Auto) Ur Squamous Epith Cells Amorphous Sediment Urine Bacteria Random Vancomycin Urine Opiates Screen Urine Methadone Screen Ur Barbiturates Screen Ur Phencyclidine Scrn Ur Amphetamines Screen U Benzodiazepines Scrn U Oth Cocaine Metabols U Cannabinoids Screen 10/27/17 10/27/17 10/27/17 01:38 02:06 05:22 WBC RBC Hgb Hct MCV MCH MCHC RDW Plt Count MPV Neut % (Auto) Lymph % (Auto) [place] % (Auto) Eos % (Auto) Baso % (Auto) Neut # (Auto) Lymph # (Auto) [place] # (Auto) Eos # (Auto) Baso # (Auto) Neutrophils % (Manual) Band Neutrophils % Lymphocytes % (Manual) Reactive Lymphs % Monocytes % (Manual) Metamyelocytes % Myelocytes % Promyelocytes % Plasma Cell % (Manual) Nucleated RBC % Smudge Cells Platelet Estimate Large Platelets Polychromasia Poikilocytosis (manual Anisocytosis (manual) Microcytosis (manual) Macrocytosis (manual) Spherocytes Tear Drop Cells Ovalocytes Puncture Site Rb Rb pCO2 43 50 H pO2 49 L 53 L HCO3 16.2 L 18.2 L ABG pH 7.20 L 7.20 L ABG Total CO2 18.1 L 21.0 L ABG O2 Saturation 83.5 L 89.2 L ABG Base Excess -10.7 L -8.4 L ABG Hemoglobin 10.9 L 10.6 L ABG Carboxyhemoglobin 2.8 H 2.4 H POC ABG HHb (Measured) 15.9 H 10.5 H ABG Methemoglobin 0.6 0.4 Jt Test Na Na ABG Potassium A-a O2 Difference 610.0 598.0 Respiratory Index 12.4 11.3 Hgb O2 Saturation 80.7 L 86.7 L Glucose Lactate Vent Mode Prvc Prvc Mechanical Rate 16 20 FiO2 100.0 100.0 Tidal Volume 450 400 PEEP 5 12 Crit Value Called To Crit Value Called By Crit Value Read Back Blood Gas Notified Time Sodium Potassium Chloride Carbon Dioxide Anion Gap BUN Creatinine Est GFR ( Amer) Est GFR (Non-Af Amer) POC Glucose (mg/dL) 273 H Random Glucose Lactic Acid Calcium Phosphorus Magnesium Total Bilirubin AST ALT Alkaline Phosphatase CK-MB (Mass) Troponin I NT-Pro-B Natriuret Pep Total Protein Albumin Globulin Albumin/Globulin Ratio Arterial Blood Potassium Urine Color Urine Clarity Urine pH Ur Specific [place] Urine Protein Urine Glucose (UA) Urine Ketones Urine Blood Urine Nitrate Urine Bilirubin Urine Urobilinogen Ur Leukocyte Esterase Urine WBC (Auto) Urine RBC (Auto) Ur Squamous Epith Cells Amorphous Sediment Urine Bacteria Random Vancomycin Urine Opiates Screen Urine Methadone Screen Ur Barbiturates Screen Ur Phencyclidine Scrn Ur Amphetamines Screen U Benzodiazepines Scrn U Oth Cocaine Metabols U Cannabinoids Screen 10/27/17 10/27/17 10/27/17 06:48 06:48 07:26 WBC 28.5 H D RBC 3.72 L Hgb 10.0 L Hct 30.6 L MCV 82.3 MCH 27.0 MCHC 32.8 L RDW 19.8 H Plt Count 138 MPV 9.6 Neut % (Auto) 86.0 H Lymph % (Auto) 8.4 L [place] % (Auto) 5.1 Eos % (Auto) 0.1 Baso % (Auto) 0.4 Neut # (Auto) 24.5 H Lymph # (Auto) 2.4 [place] # (Auto) 1.5 H Eos # (Auto) 0.0 Baso # (Auto) 0.1 Neutrophils % (Manual) 25 L Band Neutrophils % 20 H* Lymphocytes % (Manual) 21 Reactive Lymphs % 3 H Monocytes % (Manual) 7 Metamyelocytes % 5 H Myelocytes % 18 H Promyelocytes % 1 H Plasma Cell % (Manual) TEST NOT PERFORMED Nucleated RBC % 0 Smudge Cells Present Platelet Estimate Normal Large Platelets Present Polychromasia Slight Poikilocytosis (manual Slight Anisocytosis (manual) Slight Microcytosis (manual) Slight Macrocytosis (manual) Slight Spherocytes Slight Tear Drop Cells Slight Ovalocytes Slight Puncture Site pCO2 pO2 HCO3 ABG pH ABG Total CO2 ABG O2 Saturation ABG Base Excess ABG Hemoglobin ABG Carboxyhemoglobin POC ABG HHb (Measured) ABG Methemoglobin Jt Test ABG Potassium A-a O2 Difference Respiratory Index Hgb O2 Saturation Glucose Lactate Vent Mode Mechanical Rate FiO2 Tidal Volume PEEP Crit Value Called To Crit Value Called By Crit Value Read Back Blood Gas Notified Time Sodium 140 Potassium 3.9 Chloride 107 Carbon Dioxide 20 L Anion Gap 17 BUN 18 Creatinine 1.3 Est GFR ( Amer) > 60 Est GFR (Non-Af Amer) 56 POC Glucose (mg/dL) 193 H Random Glucose 217 H Lactic Acid Calcium 8.1 L Phosphorus Magnesium Total Bilirubin 0.7 AST 92 H D ALT 45 Alkaline Phosphatase 331 H D CK-MB (Mass) Troponin I NT-Pro-B Natriuret Pep Total Protein 6.0 L Albumin 2.7 L Globulin 3.3 Albumin/Globulin Ratio 0.8 L Arterial Blood Potassium Urine Color Urine Clarity Urine pH Ur Specific [place] Urine Protein Urine Glucose (UA) Urine Ketones Urine Blood Urine Nitrate Urine Bilirubin Urine Urobilinogen Ur Leukocyte Esterase Urine WBC (Auto) Urine RBC (Auto) Ur Squamous Epith Cells Amorphous Sediment Urine Bacteria Random Vancomycin Urine Opiates Screen Urine Methadone Screen Ur Barbiturates Screen Ur Phencyclidine Scrn Ur Amphetamines Screen U Benzodiazepines Scrn U Oth Cocaine Metabols U Cannabinoids Screen 10/27/17 10/27/17 10/27/17 08:32 09:15 09:15 WBC RBC Hgb Hct MCV MCH MCHC RDW Plt Count MPV Neut % (Auto) Lymph % (Auto) [place] % (Auto) Eos % (Auto) Baso % (Auto) Neut # (Auto) Lymph # (Auto) [place] # (Auto) Eos # (Auto) Baso # (Auto) Neutrophils % (Manual) Band Neutrophils % Lymphocytes % (Manual) Reactive Lymphs % Monocytes % (Manual) Metamyelocytes % Myelocytes % Promyelocytes % Plasma Cell % (Manual) Nucleated RBC % Smudge Cells Platelet Estimate Large Platelets Polychromasia Poikilocytosis (manual Anisocytosis (manual) Microcytosis (manual) Macrocytosis (manual) Spherocytes Tear Drop Cells Ovalocytes Puncture Site Rfa pCO2 46 H pO2 17 L* HCO3 14.6 L ABG pH 7.19 L* ABG Total CO2 19.0 L ABG O2 Saturation 27.9 L ABG Base Excess -10.4 L ABG Hemoglobin ABG Carboxyhemoglobin POC ABG HHb (Measured) ABG Methemoglobin Jt Test Na ABG Potassium 2.9 L A-a O2 Difference 425.0 Respiratory Index 25.0 Hgb O2 Saturation Glucose 131 H Lactate 2.7 H Vent Mode Simv/pc Mechanical Rate 20 FiO2 70.0 Tidal Volume PEEP 5 Crit Value Called To Crit Value Called By María,manolo Crit Value Read Back Y Blood Gas Notified Time 845 Sodium 143.0 142 Potassium 4.0 Chloride 114.0 H 107 Carbon Dioxide 23 Anion Gap 16 BUN 20 Creatinine 1.4 Est GFR ( Amer) > 60 Est GFR (Non-Af Amer) 51 POC Glucose (mg/dL) Random Glucose 157 H Lactic Acid 4.0 H* Calcium 7.6 L Phosphorus 4.2 Magnesium 2.0 Total Bilirubin 0.6 AST 71 H D ALT 48 Alkaline Phosphatase 272 H CK-MB (Mass) 2.21 Troponin I 0.2830 H* NT-Pro-B Natriuret Pep 3910 H Total Protein 5.2 L Albumin 2.3 L Globulin 2.9 Albumin/Globulin Ratio 0.8 L Arterial Blood Potassium 2.9 L Urine Color Urine Clarity Urine pH Ur Specific [place] Urine Protein Urine Glucose (UA) Urine Ketones Urine Blood Urine Nitrate Urine Bilirubin Urine Urobilinogen Ur Leukocyte Esterase Urine WBC (Auto) Urine RBC (Auto) Ur Squamous Epith Cells Amorphous Sediment Urine Bacteria Random Vancomycin Urine Opiates Screen Urine Methadone Screen Ur Barbiturates Screen Ur Phencyclidine Scrn Ur Amphetamines Screen U Benzodiazepines Scrn U Oth Cocaine Metabols U Cannabinoids Screen 10/27/17 10/27/17 10/27/17 09:15 10:41 10:41 WBC RBC Hgb Hct MCV MCH MCHC RDW Plt Count MPV Neut % (Auto) Lymph % (Auto) [place] % (Auto) Eos % (Auto) Baso % (Auto) Neut # (Auto) Lymph # (Auto) [place] # (Auto) Eos # (Auto) Baso # (Auto) Neutrophils % (Manual) Band Neutrophils % Lymphocytes % (Manual) Reactive Lymphs % Monocytes % (Manual) Metamyelocytes % Myelocytes % Promyelocytes % Plasma Cell % (Manual) Nucleated RBC % Smudge Cells Platelet Estimate Large Platelets Polychromasia Poikilocytosis (manual Anisocytosis (manual) Microcytosis (manual) Macrocytosis (manual) Spherocytes Tear Drop Cells Ovalocytes Puncture Site pCO2 pO2 HCO3 ABG pH ABG Total CO2 ABG O2 Saturation ABG Base Excess ABG Hemoglobin ABG Carboxyhemoglobin POC ABG HHb (Measured) ABG Methemoglobin Jt Test ABG Potassium A-a O2 Difference Respiratory Index Hgb O2 Saturation Glucose Lactate Vent Mode Mechanical Rate FiO2 Tidal Volume PEEP Crit Value Called To Crit Value Called By Crit Value Read Back Blood Gas Notified Time Sodium Potassium Chloride Carbon Dioxide Anion Gap BUN Creatinine Est GFR ( Amer) Est GFR (Non-Af Amer) POC Glucose (mg/dL) Random Glucose Lactic Acid Calcium Phosphorus Magnesium Total Bilirubin AST ALT Alkaline Phosphatase CK-MB (Mass) Troponin I NT-Pro-B Natriuret Pep Total Protein Albumin Globulin Albumin/Globulin Ratio Arterial Blood Potassium Urine Color Beth Urine Clarity Hazy Urine pH 5.0 Ur Specific [place] 1.019 Urine Protein 2+ H Urine Glucose (UA) 1+ H Urine Ketones Negative Urine Blood 1+ H Urine Nitrate Negative Urine Bilirubin Negative Urine Urobilinogen Normal Ur Leukocyte Esterase Trace Urine WBC (Auto) 12 H Urine RBC (Auto) 5 H Ur Squamous Epith Cells 1 Amorphous Sediment Moderate H Urine Bacteria Rare Random Vancomycin 10.4 Urine Opiates Screen Positive H Urine Methadone Screen Negative Ur Barbiturates Screen Negative Ur Phencyclidine Scrn Negative Ur Amphetamines Screen Negative U Benzodiazepines Scrn Positive U Oth Cocaine Metabols Negative U Cannabinoids Screen Negative 10/27/17 11:17 WBC RBC Hgb Hct MCV MCH MCHC RDW Plt Count MPV Neut % (Auto) Lymph % (Auto) [place] % (Auto) Eos % (Auto) Baso % (Auto) Neut # (Auto) Lymph # (Auto) [place] # (Auto) Eos # (Auto) Baso # (Auto) Neutrophils % (Manual) Band Neutrophils % Lymphocytes % (Manual) Reactive Lymphs % Monocytes % (Manual) Metamyelocytes % Myelocytes % Promyelocytes % Plasma Cell % (Manual) Nucleated RBC % Smudge Cells Platelet Estimate Large Platelets Polychromasia Poikilocytosis (manual Anisocytosis (manual) Microcytosis (manual) Macrocytosis (manual) Spherocytes Tear Drop Cells Ovalocytes Puncture Site pCO2 pO2 HCO3 ABG pH ABG Total CO2 ABG O2 Saturation ABG Base Excess ABG Hemoglobin ABG Carboxyhemoglobin POC ABG HHb (Measured) ABG Methemoglobin Jt Test ABG Potassium A-a O2 Difference Respiratory Index Hgb O2 Saturation Glucose Lactate Vent Mode Mechanical Rate FiO2 Tidal Volume PEEP Crit Value Called To Crit Value Called By Crit Value Read Back Blood Gas Notified Time Sodium Potassium Chloride Carbon Dioxide Anion Gap BUN Creatinine Est GFR ( Amer) Est GFR (Non-Af Amer) POC Glucose (mg/dL) 188 H Random Glucose Lactic Acid Calcium Phosphorus Magnesium Total Bilirubin AST ALT Alkaline Phosphatase CK-MB (Mass) Troponin I NT-Pro-B Natriuret Pep Total Protein Albumin Globulin Albumin/Globulin Ratio Arterial Blood Potassium Urine Color Urine Clarity Urine pH Ur Specific [place] Urine Protein Urine Glucose (UA) Urine Ketones Urine Blood Urine Nitrate Urine Bilirubin Urine Urobilinogen Ur Leukocyte Esterase Urine WBC (Auto) Urine RBC (Auto) Ur Squamous Epith Cells Amorphous Sediment Urine Bacteria Random Vancomycin Urine Opiates Screen Urine Methadone Screen Ur Barbiturates Screen Ur Phencyclidine Scrn Ur Amphetamines Screen U Benzodiazepines Scrn U Oth Cocaine Metabols U Cannabinoids Screen EKG/Cardiology Studies: Cardiology / EKG Studies 10/27/17 08:41 ELECTROCARDIOGRAM Stat Comment: Mode Of Transportation: Reason For Exam: cardiac arrest Isolation: Special Contact Fingerstick Blood Sugar Results: 188 Critical Care Progress Note - Nutrition Nutrition: Nutrition Category Date Time Status NPO Diet [DIET] Diets 10/27/17 Lunch Active Assessment/Plan - Assessment and Plan (Free Text) Assessment: This is a 62 year old male with PMHx of Anxiety, Alzhiemer's, HTN, 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 Patient is s/p code blue - 1 round epi, 1 bolus Amio, intubated- 10/26. Plan: Neuro: GCS 10T Intubated A: AMS - Pending Head CT A: Alzhiemer's - Aricept Cardio: A: NSTEMI - Troponin elevated - Continue to trend serial EKGs, ROMIs - Pending head CT to start anticoagulation A: HTN - Started levophed drip Pulm: A: Suspected ARDS versus PE - Pending ECHO - Pending CT chest/ ab/pelvis Heme/Onc: A: Stage IV Small Cell Lung Cancer - Liver, kidney, possible brain mets, and now pancreatic metastasis A: Anemia of Chronic Disease - 2/2 Malignancy A: Pancytopenia - 2/2 Malignancy ID: A: Sepsis - Leukocytosis, bandemia, lactate 4.0 -> 2.1 - Started on Aztreonam (10/20), Doxy (10/27), Flagyl (10/20), Vanco Q12 (10/27), Avelox 10/27 - F/U moreno cultures, lactate levels A: Aspiration Pneumonia - Started on Aztreonam (10/20), Doxy (10/27), Flagyl (10/20), Vanco Q12 (10/27), Avelox 10/27 Prophylaxis: - Pepcid daily - SCDs, hold VTE until head CT Disposition: Patient is full code. DW Becka Perez DO, PGY-1 <Ralph Iverson - Last Filed: 10/27/17 17:00> CCU Subjective - Physician Review Critical Care Time Spent (in minutes): 55 CCU Objective - Vital Signs / Intake & Output Vital Signs (Last 4 hours): Vital Signs Pulse Resp BP Pulse Ox 10/27/17 15:00 104 H 25 H 99 10/27/17 14:53 104 H 23 99/70 L 99 10/27/17 14:45 109 H 29 H 97 10/27/17 14:35 116 H 10/27/17 14:23 106 H 30 H 122/80 99 10/27/17 14:15 103 H 27 H 100 10/27/17 14:00 103 H 28 H 100 10/27/17 13:52 102 H 26 H 109/64 100 10/27/17 13:45 104 H 30 H 98 10/27/17 13:30 104 H 34 H 99 10/27/17 13:22 101 H 24 100/61 99 10/27/17 13:15 102 H 25 H 99 10/27/17 13:00 107 H 32 H 99 10/27/17 12:52 108 H 33 H 127/83 99 Intake and Output (Last 8hrs): Intake & Output 10/27/17 10/27/17 10/27/17 06:59 14:59 22:59 Intake Total 404.8 2264.4 241.9 Output Total 1090 40 Balance 404.8 1174.4 201.9 Intake: IV 4.8 129.2 Intake, IV Amount 400 2035.2 241.9 Right Medial Port Femoral 144.9 22.9 Right Port-A-Cath 400 190.3 19 Right Proximal Port 1400 Femoral Right Wrist 300 200 Oral 100 0 Output: Urine 1090 40 Condom 850 Urethral (Clay) 240 40 Oral Regurgitation 0 Other: # Bowel Movements 0 0 - Medications Active Medications: Active Medications Generic Name Dose Route Start Last Admin Trade Name Freq PRN Reason Stop Dose Admin Albuterol/Ipratropium 3 ml 10/26/17 20:00 10/27/17 13:59 Duoneb 3 Mg/0.5 Mg (3 Ml) Ud INH Not Given RQ6 LISA Dexamethasone 4 mg 10/23/17 15:15 10/27/17 10:05 Decadron Inj IVP 4 mg DAILY LISA Administration Donepezil HCl 10 mg 10/20/17 22:00 10/26/17 21:16 Aricept PO 10 mg HS LISA Administration Famotidine 20 mg 10/22/17 10:00 10/27/17 10:05 Pepcid PO 20 mg DAILY LISA Administration Metronidazole 500 mg in 100 mls @ 100 mls/hr 10/20/17 22:00 10/27/17 14:04 Flagyl IVPB 100 mls/hr Q8H LISA Administration Protocol Aztreonam 2 gm/ Sodium 100 mls @ 200 mls/hr 10/20/17 22:30 10/27/17 14:03 Chloride IVPB 200 mls/hr Q8H LISA Administration Protocol Vancomycin/Sodium Chloride 1 gm in 200 mls @ 133 mls/hr 10/27/17 00:30 12:21 Vancomycin 1 Gm/Ns 200 Ml IVPB 11/01/17 00:31 133 mls/hr Q12H LISA Administration Protocol Norepinephrine Bitartrate 4 mg 254 mls @ 15.24 mls/hr 10/27/17 08:30 12:05 / Dextrose IV 6 mcg/min .[id number] PRN 22.86 mls/hr TITRATE PER MD ORDER Titration Protocol 4 MCG/MIN Sodium Bicarbonate 150 meq/ 1,000 mls @ 100 mls/hr 10/27/17 08:45 10/27/17 09 :15 Dextrose IV 100 mls/hr .Q10H LISA Administration Fentanyl Citrate 2,500 mcg/ 250 mls @ 19.05 mls/hr 10/27/17 09:30 10/27/17 10 :28 Sodium Chloride IV 2 mcg/kg/hr .[id number] LISA 19.05 mls/hr Protocol Administration 2 MCG/KG/HR Insulin Human Regular 0 unit 10/27/17 18:00 Novolin R SC Q6H [facility] Protocol Moxifloxacin HCl 400 mg 10/27/17 10:00 10/27/17 10:05 Avelox GT 400 mg DAILY LISA Administration Protocol Ondansetron HCl 4 mg 10/20/17 18:06 Zofran Inj IVP Q6 PRN Nausea/Vomiting Vitamin A 0 applic 10/27/17 12:09 Vitamin A&D TP Q8 PRN Dry skin - Patient Studies Lab Studies: Microbiology Studies 10/27/17 10:41 Gram Stain - Final Trachasp Lab Studies 10/27/17 10/27/17 10/27/17 Range/Units 16:07 13:24 11:17 WBC (4.8-10.8) K/uL RBC (4.40-5.90) Mil/uL Hgb (12.0-18.0) g/dL Hct (35.0-51.0) % MCV (80.0-94.0) fL MCH (27.0-31.0) pg MCHC (33.0-37.0) g/dL RDW (11.5-14.5) % Plt Count (130-400) K/uL MPV (7.2-11.7) fL Neut % (Auto) (50.0-75.0) % Lymph % (Auto) (20.0-40.0) % [place] % (Auto) (0.0-10.0) % Eos % (Auto) (0.0-4.0) % Baso % (Auto) (0.0-2.0) % Neut # (Auto) (1.8-7.0) K/uL Lymph # (Auto) (1.0-4.3) K/uL [place] # (Auto) (0.0-0.8) K/uL Eos # (Auto) (0.0-0.7) K/uL Baso # (Auto) (0.0-0.2) K/uL Neutrophils % (Manual) (50-75) % Band Neutrophils % (0-2) % Lymphocytes % (Manual) (20-40) % Reactive Lymphs % (0-0) % Monocytes % (Manual) (0-10) % Metamyelocytes % (0-0) % Myelocytes % (0-0) % Promyelocytes % (0-0) % Plasma Cell % (Manual) Nucleated RBC % (0-0) % Smudge Cells Platelet Estimate (NORMAL) Large Platelets Polychromasia Poikilocytosis (manual Anisocytosis (manual) Microcytosis (manual) Macrocytosis (manual) Spherocytes Tear Drop Cells Ovalocytes Puncture Site Rba pCO2 47 H (35-45) mm/Hg pO2 63 L (80-100) mm/Hg HCO3 24.6 (21-28) mmol/L ABG pH 7.35 (7.35-7.45) ABG Total CO2 27.3 (22-28) mmol/L ABG O2 Saturation 94.7 L (95-98) % ABG Base Excess -0.2 (-2.0-3.0) mmol/L ABG Hemoglobin (11.7-17.4) g/dL ABG Carboxyhemoglobin (0.5-1.5) % POC ABG HHb (Measured) (0.0-5.0) % ABG Methemoglobin (0.0-3.0) % Jt Test Na ABG Potassium 3.3 L (3.6-5.2) mmol/L A-a O2 Difference 591.0 mm/Hg Respiratory Index 9.4 Hgb O2 Saturation (95.0-98.0) % Glucose 200 H (75-110) mg/dl Lactate 1.6 (0.7-2.1) mmol/L Vent Mode A/c pc Mechanical Rate 20 FiO2 100.0 % Tidal Volume 500 PEEP 5 Crit Value Called To Crit Value Called By Crit Value Read Back Blood Gas Notified Time Sodium 140.0 (132-148) mmol/L Potassium (3.6-5.2) mmol/L Chloride 107.0 (98-107) mmol/L Carbon Dioxide (22-30) mmol/L Anion Gap (10-20) BUN (9-20) mg/dL Creatinine (0.8-1.5) mg/dL Est GFR ( Amer) Est GFR (Non-Af Amer) POC Glucose (mg/dL) 188 H (65-110) mg/dL Random Glucose (75-110) mg/dL Lactic Acid 2.1 (0.7-2.1) mmol/L Calcium (8.6-10.4) mg/dl Phosphorus (2.5-4.5) mg/dL Magnesium (1.6-2.3) mg/dL Total Bilirubin (0.2-1.3) mg/dL AST (17-59) U/L ALT (21-72) U/L Alkaline Phosphatase (38-126) U/L CK-MB (Mass) (0.0-3.38) ng/mL Troponin I (0.00-0.120) ng/mL NT-Pro-B Natriuret Pep (0-900) pg/mL Total Protein (6.3-8.3) g/dL Albumin (3.5-5.0) g/dL Globulin (2.2-3.9) gm/dL Albumin/Globulin Ratio (1.0-2.1) Arterial Blood Potassium 3.3 L (3.6-5.2) mmol/L Urine Color (YELLOW) Urine Clarity (Clear) Urine pH (5.0-8.0) Ur Specific [place] (1.003-1.030) Urine Protein (NEGATIVE) mg/dL Urine Glucose (UA) (Normal) mg/dL Urine Ketones (NEGATIVE) mg/dL Urine Blood (NEGATIVE) Urine Nitrate (NEGATIVE) Urine Bilirubin (NEGATIVE) Urine Urobilinogen (0.2-1.0) mg/dL Ur Leukocyte Esterase (Negative) Faina/uL Urine WBC (Auto) (0-5) /hpf Urine RBC (Auto) (0-3) /hpf Ur Squamous Epith Cells (0-5) /hpf Amorphous Sediment (<OCC) /ul Urine Bacteria (<OCC) Random Vancomycin ug/mL Urine Opiates Screen (NEGATIVE) Urine Methadone Screen (NEGATIVE) Ur Barbiturates Screen (NEGATIVE) Ur Phencyclidine Scrn (NEGATIVE) Ur Amphetamines Screen (NEGATIVE) U Benzodiazepines Scrn (NEGATIVE) U Oth Cocaine Metabols (NEGATIVE) U Cannabinoids Screen (NEGATIVE) 10/27/17 10/27/17 10/27/17 Range/Units 10:41 10:41 09:15 WBC (4.8-10.8) K/uL RBC (4.40-5.90) Mil/uL Hgb (12.0-18.0) g/dL Hct (35.0-51.0) % MCV (80.0-94.0) fL MCH (27.0-31.0) pg MCHC (33.0-37.0) g/dL RDW (11.5-14.5) % Plt Count (130-400) K/uL MPV (7.2-11.7) fL Neut % (Auto) (50.0-75.0) % Lymph % (Auto) (20.0-40.0) % [place] % (Auto) (0.0-10.0) % Eos % (Auto) (0.0-4.0) % Baso % (Auto) (0.0-2.0) % Neut # (Auto) (1.8-7.0) K/uL Lymph # (Auto) (1.0-4.3) K/uL [place] # (Auto) (0.0-0.8) K/uL Eos # (Auto) (0.0-0.7) K/uL Baso # (Auto) (0.0-0.2) K/uL Neutrophils % (Manual) (50-75) % Band Neutrophils % (0-2) % Lymphocytes % (Manual) (20-40) % Reactive Lymphs % (0-0) % Monocytes % (Manual) (0-10) % Metamyelocytes % (0-0) % Myelocytes % (0-0) % Promyelocytes % (0-0) % Plasma Cell % (Manual) Nucleated RBC % (0-0) % Smudge Cells Platelet Estimate (NORMAL) Large Platelets Polychromasia Poikilocytosis (manual Anisocytosis (manual) Microcytosis (manual) Macrocytosis (manual) Spherocytes Tear Drop Cells Ovalocytes Puncture Site pCO2 (35-45) mm/Hg pO2 (80-100) mm/Hg HCO3 (21-28) mmol/L ABG pH (7.35-7.45) ABG Total CO2 (22-28) mmol/L ABG O2 Saturation (95-98) % ABG Base Excess (-2.0-3.0) mmol/L ABG Hemoglobin (11.7-17.4) g/dL ABG Carboxyhemoglobin (0.5-1.5) % POC ABG HHb (Measured) (0.0-5.0) % ABG Methemoglobin (0.0-3.0) % Jt Test ABG Potassium (3.6-5.2) mmol/L A-a O2 Difference mm/Hg Respiratory Index Hgb O2 Saturation (95.0-98.0) % Glucose (75-110) mg/dl Lactate (0.7-2.1) mmol/L Vent Mode Mechanical Rate FiO2 % Tidal Volume PEEP Crit Value Called To Crit Value Called By Crit Value Read Back Blood Gas Notified Time Sodium (132-148) mmol/L Potassium (3.6-5.2) mmol/L Chloride (98-107) mmol/L Carbon Dioxide (22-30) mmol/L Anion Gap (10-20) BUN (9-20) mg/dL Creatinine (0.8-1.5) mg/dL Est GFR ( Amer) Est GFR (Non-Af Amer) POC Glucose (mg/dL) (65-110) mg/dL Random Glucose (75-110) mg/dL Lactic Acid (0.7-2.1) mmol/L Calcium (8.6-10.4) mg/dl Phosphorus (2.5-4.5) mg/dL Magnesium (1.6-2.3) mg/dL Total Bilirubin (0.2-1.3) mg/dL AST (17-59) U/L ALT (21-72) U/L Alkaline Phosphatase (38-126) U/L CK-MB (Mass) (0.0-3.38) ng/mL Troponin I (0.00-0.120) ng/mL NT-Pro-B Natriuret Pep (0-900) pg/mL Total Protein (6.3-8.3) g/dL Albumin (3.5-5.0) g/dL Globulin (2.2-3.9) gm/dL Albumin/Globulin Ratio (1.0-2.1) Arterial Blood Potassium (3.6-5.2) mmol/L Urine Color Beth (YELLOW) Urine Clarity Hazy (Clear) Urine pH 5.0 (5.0-8.0) Ur Specific [place] 1.019 (1.003-1.030) Urine Protein 2+ H (NEGATIVE) mg/dL Urine Glucose (UA) 1+ H (Normal) mg/dL Urine Ketones Negative (NEGATIVE) mg/dL Urine Blood 1+ H (NEGATIVE) Urine Nitrate Negative (NEGATIVE) Urine Bilirubin Negative (NEGATIVE) Urine Urobilinogen Normal (0.2-1.0) mg/dL Ur Leukocyte Esterase Trace (Negative) Faina/uL Urine WBC (Auto) 12 H (0-5) /hpf Urine RBC (Auto) 5 H (0-3) /hpf Ur Squamous Epith Cells 1 (0-5) /hpf Amorphous Sediment Moderate H (<OCC) /ul Urine Bacteria Rare (<OCC) Random Vancomycin 10.4 ug/mL Urine Opiates Screen Positive H (NEGATIVE) Urine Methadone Screen Negative (NEGATIVE) Ur Barbiturates Screen Negative (NEGATIVE) Ur Phencyclidine Scrn Negative (NEGATIVE) Ur Amphetamines Screen Negative (NEGATIVE) U Benzodiazepines Scrn Positive (NEGATIVE) U Oth Cocaine Metabols Negative (NEGATIVE) U Cannabinoids Screen Negative (NEGATIVE) 10/27/17 10/27/1710/27/18 Range/Units 09:15 09:15 08:32 WBC (4.8-10.8) K/uL RBC (4.40-5.90) Mil/uL Hgb (12.0-18.0) g/dL Hct (35.0-51.0) % MCV (80.0-94.0) fL MCH (27.0-31.0) pg MCHC (33.0-37.0) g/dL RDW (11.5-14.5) % Plt Count (130-400) K/uL MPV (7.2-11.7) fL Neut % (Auto) (50.0-75.0) % Lymph % (Auto) (20.0-40.0) % [place] % (Auto) (0.0-10.0) % Eos % (Auto) (0.0-4.0) % Baso % (Auto) (0.0-2.0) % Neut # (Auto) (1.8-7.0) K/uL Lymph # (Auto) (1.0-4.3) K/uL [place] # (Auto) (0.0-0.8) K/uL Eos # (Auto) (0.0-0.7) K/uL Baso # (Auto) (0.0-0.2) K/uL Neutrophils % (Manual) (50-75) % Band Neutrophils % (0-2) % Lymphocytes % (Manual) (20-40) % Reactive Lymphs % (0-0) % Monocytes % (Manual) (0-10) % Metamyelocytes % (0-0) % Myelocytes % (0-0) % Promyelocytes % (0-0) % Plasma Cell % (Manual) Nucleated RBC % (0-0) % Smudge Cells Platelet Estimate (NORMAL) Large Platelets Polychromasia Poikilocytosis (manual Anisocytosis (manual) Microcytosis (manual) Macrocytosis (manual) Spherocytes Tear Drop Cells Ovalocytes Puncture Site Rfa pCO2 46 H (35-45) mm/Hg pO2 17 L* (80-100) mm/Hg HCO3 14.6 L (21-28) mmol/L ABG pH 7.19 L* (7.35-7.45) ABG Total CO2 19.0 L (22-28) mmol/L ABG O2 Saturation 27.9 L (95-98) % ABG Base Excess -10.4 L (-2.0-3.0) mmol/L ABG Hemoglobin (11.7-17.4) g/dL ABG Carboxyhemoglobin (0.5-1.5) % POC ABG HHb (Measured) (0.0-5.0) % ABG Methemoglobin (0.0-3.0) % Jt Test Na ABG Potassium 2.9 L (3.6-5.2) mmol/L A-a O2 Difference 425.0 mm/Hg Respiratory Index 25.0 Hgb O2 Saturation (95.0-98.0) % Glucose 131 H (75-110) mg/dl Lactate 2.7 H (0.7-2.1) mmol/L Vent Mode Simv/pc Mechanical Rate 20 FiO2 70.0 % Tidal Volume PEEP 5 Crit Value Called To Crit Value Called By María,manolo Crit Value Read Back Y Blood Gas Notified Time 845 Sodium 142 143.0 (132-148) mmol/L Potassium 4.0 (3.6-5.2) mmol/L Chloride 107 114.0 H (98-107) mmol/L Carbon Dioxide 23 (22-30) mmol/L Anion Gap 16 (10-20) BUN 20 (9-20) mg/dL Creatinine 1.4 (0.8-1.5) mg/dL Est GFR ( Amer) > 60 Est GFR (Non-Af Amer) 51 POC Glucose (mg/dL) (65-110) mg/dL Random Glucose 157 H (75-110) mg/dL Lactic Acid 4.0 H* (0.7-2.1) mmol/L Calcium 7.6 L (8.6-10.4) mg/dl Phosphorus 4.2 (2.5-4.5) mg/dL Magnesium 2.0 (1.6-2.3) mg/dL Total Bilirubin 0.6 (0.2-1.3) mg/dL AST 71 H D (17-59) U/L ALT 48 (21-72) U/L Alkaline Phosphatase 272 H (38-126) U/L CK-MB (Mass) 2.21 (0.0-3.38) ng/mL Troponin I 0.2830 H* (0.00-0.120) ng/mL NT-Pro-B Natriuret Pep 3910 H (0-900) pg/mL Total Protein 5.2 L (6.3-8.3) g/dL Albumin 2.3 L (3.5-5.0) g/dL Globulin 2.9 (2.2-3.9) gm/dL Albumin/Globulin Ratio 0.8 L (1.0-2.1) Arterial Blood Potassium 2.9 L (3.6-5.2) mmol/L Urine Color (YELLOW) Urine Clarity (Clear) Urine pH (5.0-8.0) Ur Specific [place] (1.003-1.030) Urine Protein (NEGATIVE) mg/dL Urine Glucose (UA) (Normal) mg/dL Urine Ketones (NEGATIVE) mg/dL Urine Blood (NEGATIVE) Urine Nitrate (NEGATIVE) Urine Bilirubin (NEGATIVE) Urine Urobilinogen (0.2-1.0) mg/dL Ur Leukocyte Esterase (Negative) Faina/uL Urine WBC (Auto) (0-5) /hpf Urine RBC (Auto) (0-3) /hpf Ur Squamous Epith Cells (0-5) /hpf Amorphous Sediment (<OCC) /ul Urine Bacteria (<OCC) Random Vancomycin ug/mL Urine Opiates Screen (NEGATIVE) Urine Methadone Screen (NEGATIVE) Ur Barbiturates Screen (NEGATIVE) Ur Phencyclidine Scrn (NEGATIVE) Ur Amphetamines Screen (NEGATIVE) U Benzodiazepines Scrn (NEGATIVE) U Oth Cocaine Metabols (NEGATIVE) U Cannabinoids Screen (NEGATIVE) 10/27/17 10/27/17 10/27/17 Range/Units 07:26 06:48 06:48 WBC 28.5 H D (4.8-10.8) K/uL RBC 3.72 L (4.40-5.90) Mil/uL Hgb 10.0 L (12.0-18.0) g/dL Hct 30.6 L (35.0-51.0) % MCV 82.3 (80.0-94.0) fL MCH 27.0 (27.0-31.0) pg MCHC 32.8 L (33.0-37.0) g/dL RDW 19.8 H (11.5-14.5) % Plt Count 138 (130-400) K/uL MPV 9.6 (7.2-11.7) fL Neut % (Auto) 86.0 H (50.0-75.0) % Lymph % (Auto) 8.4 L (20.0-40.0) % [place] % (Auto) 5.1 (0.0-10.0) % Eos % (Auto) 0.1 (0.0-4.0) % Baso % (Auto) 0.4 (0.0-2.0) % Neut # (Auto) 24.5 H (1.8-7.0) K/uL Lymph # (Auto) 2.4 (1.0-4.3) K/uL [place] # (Auto) 1.5 H (0.0-0.8) K/uL Eos # (Auto) 0.0 (0.0-0.7) K/uL Baso # (Auto) 0.1 (0.0-0.2) K/uL Neutrophils % (Manual) 25 L (50-75) % Band Neutrophils % 20 H* (0-2) % Lymphocytes % (Manual) 21 (20-40) % Reactive Lymphs % 3 H (0-0) % Monocytes % (Manual) 7 (0-10) % Metamyelocytes % 5 H (0-0) % Myelocytes % 18 H (0-0) % Promyelocytes % 1 H (0-0) % Plasma Cell % (Manual) TEST NOT PERFORMED Nucleated RBC % 0 (0-0) % Smudge Cells Present Platelet Estimate Normal (NORMAL) Large Platelets Present Polychromasia Slight Poikilocytosis (manual Slight Anisocytosis (manual) Slight Microcytosis (manual) Slight Macrocytosis (manual) Slight Spherocytes Slight Tear Drop Cells Slight Ovalocytes Slight Puncture Site pCO2 (35-45) mm/Hg pO2 (80-100) mm/Hg HCO3 (21-28) mmol/L ABG pH (7.35-7.45) ABG Total CO2 (22-28) mmol/L ABG O2 Saturation (95-98) % ABG Base Excess (-2.0-3.0) mmol/L ABG Hemoglobin (11.7-17.4) g/dL ABG Carboxyhemoglobin (0.5-1.5) % POC ABG HHb (Measured) (0.0-5.0) % ABG Methemoglobin (0.0-3.0) % Jt Test ABG Potassium (3.6-5.2) mmol/L A-a O2 Difference mm/Hg Respiratory Index Hgb O2 Saturation (95.0-98.0) % Glucose (75-110) mg/dl Lactate (0.7-2.1) mmol/L Vent Mode Mechanical Rate FiO2 % Tidal Volume PEEP Crit Value Called To Crit Value Called By Crit Value Read Back Blood Gas Notified Time Sodium 140 (132-148) mmol/L Potassium 3.9 (3.6-5.2) mmol/L Chloride 107 (98-107) mmol/L Carbon Dioxide 20 L (22-30) mmol/L Anion Gap 17 (10-20) BUN 18 (9-20) mg/dL Creatinine 1.3 (0.8-1.5) mg/dL Est GFR ( Amer) > 60 Est GFR (Non-Af Amer) 56 POC Glucose (mg/dL) 193 H (65-110) mg/dL Random Glucose 217 H (75-110) mg/dL Lactic Acid (0.7-2.1) mmol/L Calcium 8.1 L (8.6-10.4) mg/dl Phosphorus (2.5-4.5) mg/dL Magnesium (1.6-2.3) mg/dL Total Bilirubin 0.7 (0.2-1.3) mg/dL AST 92 H D (17-59) U/L ALT 45 (21-72) U/L Alkaline Phosphatase 331 H D (38-126) U/L CK-MB (Mass) (0.0-3.38) ng/mL Troponin I (0.00-0.120) ng/mL NT-Pro-B Natriuret Pep (0-900) pg/mL Total Protein 6.0 L (6.3-8.3) g/dL Albumin 2.7 L (3.5-5.0) g/dL Globulin 3.3 (2.2-3.9) gm/dL Albumin/Globulin Ratio 0.8 L (1.0-2.1) Arterial Blood Potassium (3.6-5.2) mmol/L Urine Color (YELLOW) Urine Clarity (Clear) Urine pH (5.0-8.0) Ur Specific [place] (1.003-1.030) Urine Protein (NEGATIVE) mg/dL Urine Glucose (UA) (Normal) mg/dL Urine Ketones (NEGATIVE) mg/dL Urine Blood (NEGATIVE) Urine Nitrate (NEGATIVE) Urine Bilirubin (NEGATIVE) Urine Urobilinogen (0.2-1.0) mg/dL Ur Leukocyte Esterase (Negative) Faina/uL Urine WBC (Auto) (0-5) /hpf Urine RBC (Auto) (0-3) /hpf Ur Squamous Epith Cells (0-5) /hpf Amorphous Sediment (<OCC) /ul Urine Bacteria (<OCC) Random Vancomycin ug/mL Urine Opiates Screen (NEGATIVE) Urine Methadone Screen (NEGATIVE) Ur Barbiturates Screen (NEGATIVE) Ur Phencyclidine Scrn (NEGATIVE) Ur Amphetamines Screen (NEGATIVE) U Benzodiazepines Scrn (NEGATIVE) U Oth Cocaine Metabols (NEGATIVE) U Cannabinoids Screen (NEGATIVE) 10/27/17 10/27/17 10/27/17 Range/Units 05:22 02:06 01:38 WBC (4.8-10.8) K/uL RBC (4.40-5.90) Mil/uL Hgb (12.0-18.0) g/dL Hct (35.0-51.0) % MCV (80.0-94.0) fL MCH (27.0-31.0) pg MCHC (33.0-37.0) g/dL RDW (11.5-14.5) % Plt Count (130-400) K/uL MPV (7.2-11.7) fL Neut % (Auto) (50.0-75.0) % Lymph % (Auto) (20.0-40.0) % [place] % (Auto) (0.0-10.0) % Eos % (Auto) (0.0-4.0) % Baso % (Auto) (0.0-2.0) % Neut # (Auto) (1.8-7.0) K/uL Lymph # (Auto) (1.0-4.3) K/uL [place] # (Auto) (0.0-0.8) K/uL Eos # (Auto) (0.0-0.7) K/uL Baso # (Auto) (0.0-0.2) K/uL Neutrophils % (Manual) (50-75) % Band Neutrophils % (0-2) % Lymphocytes % (Manual) (20-40) % Reactive Lymphs % (0-0) % Monocytes % (Manual) (0-10) % Metamyelocytes % (0-0) % Myelocytes % (0-0) % Promyelocytes % (0-0) % Plasma Cell % (Manual) Nucleated RBC % (0-0) % Smudge Cells Platelet Estimate (NORMAL) Large Platelets Polychromasia Poikilocytosis (manual Anisocytosis (manual) Microcytosis (manual) Macrocytosis (manual) Spherocytes Tear Drop Cells Ovalocytes Puncture Site Rb Rb pCO2 50 H 43 (35-45) mm/Hg pO2 53 L 49 L (80-100) mm/Hg HCO3 18.2 L 16.2 L (21-28) mmol/L ABG pH 7.20 L 7.20 L (7.35-7.45) ABG Total CO2 21.0 L 18.1 L (22-28) mmol/L ABG O2 Saturation 89.2 L 83.5 L (95-98) % ABG Base Excess -8.4 L -10.7 L (-2.0-3.0) mmol/L ABG Hemoglobin 10.6 L 10.9 L (11.7-17.4) g/dL ABG Carboxyhemoglobin 2.4 H 2.8 H (0.5-1.5) % POC ABG HHb (Measured) 10.5 H 15.9 H (0.0-5.0) % ABG Methemoglobin 0.4 0.6 (0.0-3.0) % Jt Test Na Na ABG Potassium (3.6-5.2) mmol/L A-a O2 Difference 598.0 610.0 mm/Hg Respiratory Index 11.3 12.4 Hgb O2 Saturation 86.7 L 80.7 L (95.0-98.0) % Glucose (75-110) mg/dl Lactate (0.7-2.1) mmol/L Vent Mode Prvc Prvc Mechanical Rate 20 16 FiO2 100.0 100.0 % Tidal Volume 400 450 PEEP 12 5 Crit Value Called To Crit Value Called By Crit Value Read Back Blood Gas Notified Time Sodium (132-148) mmol/L Potassium (3.6-5.2) mmol/L Chloride (98-107) mmol/L Carbon Dioxide (22-30) mmol/L Anion Gap (10-20) BUN (9-20) mg/dL Creatinine (0.8-1.5) mg/dL Est GFR ( Amer) Est GFR (Non-Af Amer) POC Glucose (mg/dL) 273 H (65-110) mg/dL Random Glucose (75-110) mg/dL Lactic Acid (0.7-2.1) mmol/L Calcium (8.6-10.4) mg/dl Phosphorus (2.5-4.5) mg/dL Magnesium (1.6-2.3) mg/dL Total Bilirubin (0.2-1.3) mg/dL AST (17-59) U/L ALT (21-72) U/L Alkaline Phosphatase (38-126) U/L CK-MB (Mass) (0.0-3.38) ng/mL Troponin I (0.00-0.120) ng/mL NT-Pro-B Natriuret Pep (0-900) pg/mL Total Protein (6.3-8.3) g/dL Albumin (3.5-5.0) g/dL Globulin (2.2-3.9) gm/dL Albumin/Globulin Ratio (1.0-2.1) Arterial Blood Potassium (3.6-5.2) mmol/L Urine Color (YELLOW) Urine Clarity (Clear) Urine pH (5.0-8.0) Ur Specific [place] (1.003-1.030) Urine Protein (NEGATIVE) mg/dL Urine Glucose (UA) (Normal) mg/dL Urine Ketones (NEGATIVE) mg/dL Urine Blood (NEGATIVE) Urine Nitrate (NEGATIVE) Urine Bilirubin (NEGATIVE) Urine Urobilinogen (0.2-1.0) mg/dL Ur Leukocyte Esterase (Negative) Faina/uL Urine WBC (Auto) (0-5) /hpf Urine RBC (Auto) (0-3) /hpf Ur Squamous Epith Cells (0-5) /hpf Amorphous Sediment (<OCC) /ul Urine Bacteria (<OCC) Random Vancomycin ug/mL Urine Opiates Screen (NEGATIVE) Urine Methadone Screen (NEGATIVE) Ur Barbiturates Screen (NEGATIVE) Ur Phencyclidine Scrn (NEGATIVE) Ur Amphetamines Screen (NEGATIVE) U Benzodiazepines Scrn (NEGATIVE) U Oth Cocaine Metabols (NEGATIVE) U Cannabinoids Screen (NEGATIVE) 10/26/17 10/26/17 Range/Units 23:25 20:55 WBC (4.8-10.8) K/uL RBC (4.40-5.90) Mil/uL Hgb (12.0-18.0) g/dL Hct (35.0-51.0) % MCV (80.0-94.0) fL MCH (27.0-31.0) pg MCHC (33.0-37.0) g/dL RDW (11.5-14.5) % Plt Count (130-400) K/uL MPV (7.2-11.7) fL Neut % (Auto) (50.0-75.0) % Lymph % (Auto) (20.0-40.0) % [place] % (Auto) (0.0-10.0) % Eos % (Auto) (0.0-4.0) % Baso % (Auto) (0.0-2.0) % Neut # (Auto) (1.8-7.0) K/uL Lymph # (Auto) (1.0-4.3) K/uL [place] # (Auto) (0.0-0.8) K/uL Eos # (Auto) (0.0-0.7) K/uL Baso # (Auto) (0.0-0.2) K/uL Neutrophils % (Manual) (50-75) % Band Neutrophils % (0-2) % Lymphocytes % (Manual) (20-40) % Reactive Lymphs % (0-0) % Monocytes % (Manual) (0-10) % Metamyelocytes % (0-0) % Myelocytes % (0-0) % Promyelocytes % (0-0) % Plasma Cell % (Manual) Nucleated RBC % (0-0) % Smudge Cells Platelet Estimate (NORMAL) Large Platelets Polychromasia Poikilocytosis (manual Anisocytosis (manual) Microcytosis (manual) Macrocytosis (manual) Spherocytes Tear Drop Cells Ovalocytes Puncture Site pCO2 (35-45) mm/Hg pO2 (80-100) mm/Hg HCO3 (21-28) mmol/L ABG pH (7.35-7.45) ABG Total CO2 (22-28) mmol/L ABG O2 Saturation (95-98) % ABG Base Excess (-2.0-3.0) mmol/L ABG Hemoglobin (11.7-17.4) g/dL ABG Carboxyhemoglobin (0.5-1.5) % POC ABG HHb (Measured) (0.0-5.0) % ABG Methemoglobin (0.0-3.0) % Jt Test ABG Potassium (3.6-5.2) mmol/L A-a O2 Difference mm/Hg Respiratory Index Hgb O2 Saturation (95.0-98.0) % Glucose (75-110) mg/dl Lactate (0.7-2.1) mmol/L Vent Mode Mechanical Rate FiO2 % Tidal Volume PEEP Crit Value Called To Crit Value Called By Crit Value Read Back Blood Gas Notified Time Sodium (132-148) mmol/L Potassium (3.6-5.2) mmol/L Chloride (98-107) mmol/L Carbon Dioxide (22-30) mmol/L Anion Gap (10-20) BUN (9-20) mg/dL Creatinine (0.8-1.5) mg/dL Est GFR ( Amer) Est GFR (Non-Af Amer) POC Glucose (mg/dL) 184 H 146 H (65-110) mg/dL Random Glucose (75-110) mg/dL Lactic Acid (0.7-2.1) mmol/L Calcium (8.6-10.4) mg/dl Phosphorus (2.5-4.5) mg/dL Magnesium (1.6-2.3) mg/dL Total Bilirubin (0.2-1.3) mg/dL AST (17-59) U/L ALT (21-72) U/L Alkaline Phosphatase (38-126) U/L CK-MB (Mass) (0.0-3.38) ng/mL Troponin I (0.00-0.120) ng/mL NT-Pro-B Natriuret Pep (0-900) pg/mL Total Protein (6.3-8.3) g/dL Albumin (3.5-5.0) g/dL Globulin (2.2-3.9) gm/dL Albumin/Globulin Ratio (1.0-2.1) Arterial Blood Potassium (3.6-5.2) mmol/L Urine Color (YELLOW) Urine Clarity (Clear) Urine pH (5.0-8.0) Ur Specific [place] (1.003-1.030) Urine Protein (NEGATIVE) mg/dL Urine Glucose (UA) (Normal) mg/dL Urine Ketones (NEGATIVE) mg/dL Urine Blood (NEGATIVE) Urine Nitrate (NEGATIVE) Urine Bilirubin (NEGATIVE) Urine Urobilinogen (0.2-1.0) mg/dL Ur Leukocyte Esterase (Negative) Faina/uL Urine WBC (Auto) (0-5) /hpf Urine RBC (Auto) (0-3) /hpf Ur Squamous Epith Cells (0-5) /hpf Amorphous Sediment (<OCC) /ul Urine Bacteria (<OCC) Random Vancomycin ug/mL Urine Opiates Screen (NEGATIVE) Urine Methadone Screen (NEGATIVE) Ur Barbiturates Screen (NEGATIVE) Ur Phencyclidine Scrn (NEGATIVE) Ur Amphetamines Screen (NEGATIVE) U Benzodiazepines Scrn (NEGATIVE) U Oth Cocaine Metabols (NEGATIVE) U Cannabinoids Screen (NEGATIVE) Laboratory Results - last 24 hr 10/26/17 10/26/17 10/27/17 20:55 23:25 01:38 WBC RBC Hgb Hct MCV MCH MCHC RDW Plt Count MPV Neut % (Auto) Lymph % (Auto) [place] % (Auto) Eos % (Auto) Baso % (Auto) Neut # (Auto) Lymph # (Auto) [place] # (Auto) Eos # (Auto) Baso # (Auto) Neutrophils % (Manual) Band Neutrophils % Lymphocytes % (Manual) Reactive Lymphs % Monocytes % (Manual) Metamyelocytes % Myelocytes % Promyelocytes % Plasma Cell % (Manual) Nucleated RBC % Smudge Cells Platelet Estimate Large Platelets Polychromasia Poikilocytosis (manual Anisocytosis (manual) Microcytosis (manual) Macrocytosis (manual) Spherocytes Tear Drop Cells Ovalocytes Puncture Site Rb pCO2 43 pO2 49 L HCO3 16.2 L ABG pH 7.20 L ABG Total CO2 18.1 L ABG O2 Saturation 83.5 L ABG Base Excess -10.7 L ABG Hemoglobin 10.9 L ABG Carboxyhemoglobin 2.8 H POC ABG HHb (Measured) 15.9 H ABG Methemoglobin 0.6 Jt Test Na ABG Potassium A-a O2 Difference 610.0 Respiratory Index 12.4 Hgb O2 Saturation 80.7 L Glucose Lactate Vent Mode Prvc Mechanical Rate 16 FiO2 100.0 Tidal Volume 450 PEEP 5 Crit Value Called To Crit Value Called By Crit Value Read Back Blood Gas Notified Time Sodium Potassium Chloride Carbon Dioxide Anion Gap BUN Creatinine Est GFR ( Amer) Est GFR (Non-Af Amer) POC Glucose (mg/dL) 146 H 184 H Random Glucose Lactic Acid Calcium Phosphorus Magnesium Total Bilirubin AST ALT Alkaline Phosphatase CK-MB (Mass) Troponin I NT-Pro-B Natriuret Pep Total Protein Albumin Globulin Albumin/Globulin Ratio Arterial Blood Potassium Urine Color Urine Clarity Urine pH Ur Specific [place] Urine Protein Urine Glucose (UA) Urine Ketones Urine Blood Urine Nitrate Urine Bilirubin Urine Urobilinogen Ur Leukocyte Esterase Urine WBC (Auto) Urine RBC (Auto) Ur Squamous Epith Cells Amorphous Sediment Urine Bacteria Random Vancomycin Urine Opiates Screen Urine Methadone Screen Ur Barbiturates Screen Ur Phencyclidine Scrn Ur Amphetamines Screen U Benzodiazepines Scrn U Oth Cocaine Metabols U Cannabinoids Screen 10/27/17 10/27/17 10/27/17 02:06 05:22 06:48 WBC 28.5 H D RBC 3.72 L Hgb 10.0 L Hct 30.6 L MCV 82.3 MCH 27.0 MCHC 32.8 L RDW 19.8 H Plt Count 138 MPV 9.6 Neut % (Auto) 86.0 H Lymph % (Auto) 8.4 L [place] % (Auto) 5.1 Eos % (Auto) 0.1 Baso % (Auto) 0.4 Neut # (Auto) 24.5 H Lymph # (Auto) 2.4 [place] # (Auto) 1.5 H Eos # (Auto) 0.0 Baso # (Auto) 0.1 Neutrophils % (Manual) 25 L Band Neutrophils % 20 H* Lymphocytes % (Manual) 21 Reactive Lymphs % 3 H Monocytes % (Manual) 7 Metamyelocytes % 5 H Myelocytes % 18 H Promyelocytes % 1 H Plasma Cell % (Manual) TEST NOT PERFORMED Nucleated RBC % 0 Smudge Cells Present Platelet Estimate Normal Large Platelets Present Polychromasia Slight Poikilocytosis (manual Slight Anisocytosis (manual) Slight Microcytosis (manual) Slight Macrocytosis (manual) Slight Spherocytes Slight Tear Drop Cells Slight Ovalocytes Slight Puncture Site Rb pCO2 50 H pO2 53 L HCO3 18.2 L ABG pH 7.20 L ABG Total CO2 21.0 L ABG O2 Saturation 89.2 L ABG Base Excess -8.4 L ABG Hemoglobin 10.6 L ABG Carboxyhemoglobin 2.4 H POC ABG HHb (Measured) 10.5 H ABG Methemoglobin 0.4 Jt Test Na ABG Potassium A-a O2 Difference 598.0 Respiratory Index 11.3 Hgb O2 Saturation 86.7 L Glucose Lactate Vent Mode Prvc Mechanical Rate 20 FiO2 100.0 Tidal Volume 400 PEEP 12 Crit Value Called To Crit Value Called By Crit Value Read Back Blood Gas Notified Time Sodium Potassium Chloride Carbon Dioxide Anion Gap BUN Creatinine Est GFR ( Amer) Est GFR (Non-Af Amer) POC Glucose (mg/dL) 273 H Random Glucose Lactic Acid Calcium Phosphorus Magnesium Total Bilirubin AST ALT Alkaline Phosphatase CK-MB (Mass) Troponin I NT-Pro-B Natriuret Pep Total Protein Albumin Globulin Albumin/Globulin Ratio Arterial Blood Potassium Urine Color Urine Clarity Urine pH Ur Specific [place] Urine Protein Urine Glucose (UA) Urine Ketones Urine Blood Urine Nitrate Urine Bilirubin Urine Urobilinogen Ur Leukocyte Esterase Urine WBC (Auto) Urine RBC (Auto) Ur Squamous Epith Cells Amorphous Sediment Urine Bacteria Random Vancomycin Urine Opiates Screen Urine Methadone Screen Ur Barbiturates Screen Ur Phencyclidine Scrn Ur Amphetamines Screen U Benzodiazepines Scrn U Oth Cocaine Metabols U Cannabinoids Screen 10/27/17 10/27/17 10/27/17 06:48 07:26 08:32 WBC RBC Hgb Hct MCV MCH MCHC RDW Plt Count MPV Neut % (Auto) Lymph % (Auto) [place] % (Auto) Eos % (Auto) Baso % (Auto) Neut # (Auto) Lymph # (Auto) [place] # (Auto) Eos # (Auto) Baso # (Auto) Neutrophils % (Manual) Band Neutrophils % Lymphocytes % (Manual) Reactive Lymphs % Monocytes % (Manual) Metamyelocytes % Myelocytes % Promyelocytes % Plasma Cell % (Manual) Nucleated RBC % Smudge Cells Platelet Estimate Large Platelets Polychromasia Poikilocytosis (manual Anisocytosis (manual) Microcytosis (manual) Macrocytosis (manual) Spherocytes Tear Drop Cells Ovalocytes Puncture Site Rfa pCO2 46 H pO2 17 L* HCO3 14.6 L ABG pH 7.19 L* ABG Total CO2 19.0 L ABG O2 Saturation 27.9 L ABG Base Excess -10.4 L ABG Hemoglobin ABG Carboxyhemoglobin POC ABG HHb (Measured) ABG Methemoglobin Jt Test Na ABG Potassium 2.9 L A-a O2 Difference 425.0 Respiratory Index 25.0 Hgb O2 Saturation Glucose 131 H Lactate 2.7 H Vent Mode Simv/pc Mechanical Rate 20 FiO2 70.0 Tidal Volume PEEP 5 Crit Value Called To Crit Value Called By María,research laboratory technician Crit Value Read Back Y Blood Gas Notified Time 845 Sodium 140 143.0 Potassium 3.9 Chloride 107 114.0 H Carbon Dioxide 20 L Anion Gap 17 BUN 18 Creatinine 1.3 Est GFR ( Amer) > 60 Est GFR (Non-Af Amer) 56 POC Glucose (mg/dL) 193 H Random Glucose 217 H Lactic Acid Calcium 8.1 L Phosphorus Magnesium Total Bilirubin 0.7 AST 92 H D ALT 45 Alkaline Phosphatase 331 H D CK-MB (Mass) Troponin I NT-Pro-B Natriuret Pep Total Protein 6.0 L Albumin 2.7 L Globulin 3.3 Albumin/Globulin Ratio 0.8 L Arterial Blood Potassium 2.9 L Urine Color Urine Clarity Urine pH Ur Specific [place] Urine Protein Urine Glucose (UA) Urine Ketones Urine Blood Urine Nitrate Urine Bilirubin Urine Urobilinogen Ur Leukocyte Esterase Urine WBC (Auto) Urine RBC (Auto) Ur Squamous Epith Cells Amorphous Sediment Urine Bacteria Random Vancomycin Urine Opiates Screen Urine Methadone Screen Ur Barbiturates Screen Ur Phencyclidine Scrn Ur Amphetamines Screen U Benzodiazepines Scrn U Oth Cocaine Metabols U Cannabinoids Screen 10/27/17 10/27/17 10/27/17 09:15 09:15 09:15 WBC RBC Hgb Hct MCV MCH MCHC RDW Plt Count MPV Neut % (Auto) Lymph % (Auto) [place] % (Auto) Eos % (Auto) Baso % (Auto) Neut # (Auto) Lymph # (Auto) [place] # (Auto) Eos # (Auto) Baso # (Auto) Neutrophils % (Manual) Band Neutrophils % Lymphocytes % (Manual) Reactive Lymphs % Monocytes % (Manual) Metamyelocytes % Myelocytes % Promyelocytes % Plasma Cell % (Manual) Nucleated RBC % Smudge Cells Platelet Estimate Large Platelets Polychromasia Poikilocytosis (manual Anisocytosis (manual) Microcytosis (manual) Macrocytosis (manual) Spherocytes Tear Drop Cells Ovalocytes Puncture Site pCO2 pO2 HCO3 ABG pH ABG Total CO2 ABG O2 Saturation ABG Base Excess ABG Hemoglobin ABG Carboxyhemoglobin POC ABG HHb (Measured) ABG Methemoglobin Jt Test ABG Potassium A-a O2 Difference Respiratory Index Hgb O2 Saturation Glucose Lactate Vent Mode Mechanical Rate FiO2 Tidal Volume PEEP Crit Value Called To Crit Value Called By Crit Value Read Back Blood Gas Notified Time Sodium 142 Potassium 4.0 Chloride 107 Carbon Dioxide 23 Anion Gap 16 BUN 20 Creatinine 1.4 Est GFR ( Amer) > 60 Est GFR (Non-Af Amer) 51 POC Glucose (mg/dL) Random Glucose 157 H Lactic Acid 4.0 H* Calcium 7.6 L Phosphorus 4.2 Magnesium 2.0 Total Bilirubin 0.6 AST 71 H D ALT 48 Alkaline Phosphatase 272 H CK-MB (Mass) 2.21 Troponin I 0.2830 H* NT-Pro-B Natriuret Pep 3910 H Total Protein 5.2 L Albumin 2.3 L Globulin 2.9 Albumin/Globulin Ratio 0.8 L Arterial Blood Potassium Urine Color Beth Urine Clarity Hazy Urine pH 5.0 Ur Specific [place] 1.019 Urine Protein 2+ H Urine Glucose (UA) 1+ H Urine Ketones Negative Urine Blood 1+ H Urine Nitrate Negative Urine Bilirubin Negative Urine Urobilinogen Normal Ur Leukocyte Esterase Trace Urine WBC (Auto) 12 H Urine RBC (Auto) 5 H Ur Squamous Epith Cells 1 Amorphous Sediment Moderate H Urine Bacteria Rare Random Vancomycin Urine Opiates Screen Urine Methadone Screen Ur Barbiturates Screen Ur Phencyclidine Scrn Ur Amphetamines Screen U Benzodiazepines Scrn U Oth Cocaine Metabols U Cannabinoids Screen 10/27/17 10/27/17 10/27/17 10:41 10:41 11:17 WBC RBC Hgb Hct MCV MCH MCHC RDW Plt Count MPV Neut % (Auto) Lymph % (Auto) [place] % (Auto) Eos % (Auto) Baso % (Auto) Neut # (Auto) Lymph # (Auto) [place] # (Auto) Eos # (Auto) Baso # (Auto) Neutrophils % (Manual) Band Neutrophils % Lymphocytes % (Manual) Reactive Lymphs % Monocytes % (Manual) Metamyelocytes % Myelocytes % Promyelocytes % Plasma Cell % (Manual) Nucleated RBC % Smudge Cells Platelet Estimate Large Platelets Polychromasia Poikilocytosis (manual Anisocytosis (manual) Microcytosis (manual) Macrocytosis (manual) Spherocytes Tear Drop Cells Ovalocytes Puncture Site pCO2 pO2 HCO3 ABG pH ABG Total CO2 ABG O2 Saturation ABG Base Excess ABG Hemoglobin ABG Carboxyhemoglobin POC ABG HHb (Measured) ABG Methemoglobin Jt Test ABG Potassium A-a O2 Difference Respiratory Index Hgb O2 Saturation Glucose Lactate Vent Mode Mechanical Rate FiO2 Tidal Volume PEEP Crit Value Called To Crit Value Called By Crit Value Read Back Blood Gas Notified Time Sodium Potassium Chloride Carbon Dioxide Anion Gap BUN Creatinine Est GFR ( Amer) Est GFR (Non-Af Amer) POC Glucose (mg/dL) 188 H Random Glucose Lactic Acid Calcium Phosphorus Magnesium Total Bilirubin AST ALT Alkaline Phosphatase CK-MB (Mass) Troponin I NT-Pro-B Natriuret Pep Total Protein Albumin Globulin Albumin/Globulin Ratio Arterial Blood Potassium Urine Color Urine Clarity Urine pH Ur Specific [place] Urine Protein Urine Glucose (UA) Urine Ketones Urine Blood Urine Nitrate Urine Bilirubin Urine Urobilinogen Ur Leukocyte Esterase Urine WBC (Auto) Urine RBC (Auto) Ur Squamous Epith Cells Amorphous Sediment Urine Bacteria Random Vancomycin 10.4 Urine Opiates Screen Positive H Urine Methadone Screen Negative Ur Barbiturates Screen Negative Ur Phencyclidine Scrn Negative Ur Amphetamines Screen Negative U Benzodiazepines Scrn Positive U Oth Cocaine Metabols Negative U Cannabinoids Screen Negative 10/27/17 10/27/17 13:24 16:07 WBC RBC Hgb Hct MCV MCH MCHC RDW Plt Count MPV Neut % (Auto) Lymph % (Auto) [place] % (Auto) Eos % (Auto) Baso % (Auto) Neut # (Auto) Lymph # (Auto) [place] # (Auto) Eos # (Auto) Baso # (Auto) Neutrophils % (Manual) Band Neutrophils % Lymphocytes % (Manual) Reactive Lymphs % Monocytes % (Manual) Metamyelocytes % Myelocytes % Promyelocytes % Plasma Cell % (Manual) Nucleated RBC % Smudge Cells Platelet Estimate Large Platelets Polychromasia Poikilocytosis (manual Anisocytosis (manual) Microcytosis (manual) Macrocytosis (manual) Spherocytes Tear Drop Cells Ovalocytes Puncture Site Rba pCO2 47 H pO2 63 L HCO3 24.6 ABG pH 7.35 ABG Total CO2 27.3 ABG O2 Saturation 94.7 L ABG Base Excess -0.2 ABG Hemoglobin ABG Carboxyhemoglobin POC ABG HHb (Measured) ABG Methemoglobin Jt Test Na ABG Potassium 3.3 L A-a O2 Difference 591.0 Respiratory Index 9.4 Hgb O2 Saturation Glucose 200 H Lactate 1.6 Vent Mode A/c pc Mechanical Rate 20 FiO2 100.0 Tidal Volume 500 PEEP 5 Crit Value Called To Crit Value Called By Crit Value Read Back Blood Gas Notified Time Sodium 140.0 Potassium Chloride 107.0 Carbon Dioxide Anion Gap BUN Creatinine Est GFR ( Amer) Est GFR (Non-Af Amer) POC Glucose (mg/dL) Random Glucose Lactic Acid 2.1 Calcium Phosphorus Magnesium Total Bilirubin AST ALT Alkaline Phosphatase CK-MB (Mass) Troponin I NT-Pro-B Natriuret Pep Total Protein Albumin Globulin Albumin/Globulin Ratio Arterial Blood Potassium 3.3 L Urine Color Urine Clarity Urine pH Ur Specific [place] Urine Protein Urine Glucose (UA) Urine Ketones Urine Blood Urine Nitrate Urine Bilirubin Urine Urobilinogen Ur Leukocyte Esterase Urine WBC (Auto) Urine RBC (Auto) Ur Squamous Epith Cells Amorphous Sediment Urine Bacteria Random Vancomycin Urine Opiates Screen Urine Methadone Screen Ur Barbiturates Screen Ur Phencyclidine Scrn Ur Amphetamines Screen U Benzodiazepines Scrn U Oth Cocaine Metabols U Cannabinoids Screen EKG/Cardiology Studies: Cardiology / EKG Studies 10/27/17 08:41 ELECTROCARDIOGRAM Stat Comment: Mode Of Transportation: Reason For Exam: cardiac arrest Isolation: Special Contact Critical Care Progress Note - Nutrition Nutrition: Nutrition Category Date Time Status NPO Diet [DIET] Diets 10/27/17 Lunch Active Assessment/Plan - Assessment and Plan (Free Text) Plan: Patient seen and examined at bedside. Patient intubated after cardiac arrest. Patient non-verbal and no other information available. -Cardiac arrest/NSTEMI: exact cause unknown, obtain cardiology eval for CAD, start norepi to keep MAP >65 -Hypoxic respiratory failure/ARDS like: PF ratio very low, will perform fluid restrictive processes, max concentrate norepi avoid free water, peep 5, continue ventilation to keep spo2 >92 and pH b/w 7.35-7.45 -Septic shock: moreno culture, continue abx as per ID ANDRES: monitory urine ouput, avoid nephrotoxic drugs -Metabolic acidodsis: contoinue bicabr to keep bicarb near 18, nephrology input -Anemia of chronic disease -BGM q6hrs, iss dvt ppx: continue SCDs, heparin once CT hed obtained -PUD ppx pepcid Prognosis guarded as multiple diagnostic tests pending Family informed of prognosis cc time 55 minutes - Date & Time Date: 10/27/17 Time: 16:59
--- NOTE | 2017-10-27 14:31 | CP.PCM.CON ---
History of Present Illness - History of Present Illness History of Present Illness: dictated Past Patient History - Infectious Disease Hx of Infectious Diseases: None - Past Medical History & Family History Past Medical History?: Yes - Past Social History Smoking Status: Former Smoker Chewing Tobacco Use: No Cigar Use: No Alcohol: None Drugs: Denies Home Situation {Lives}: Alone - CARDIAC Hx Hypertension: Yes - PULMONARY Hx Respiratory Disorders: No - NEUROLOGICAL Hx Neurological Disorder: No - HEENT Hx HEENT Problems: No - RENAL Hx Chronic Kidney Disease: No - ENDOCRINE/METABOLIC Hx Endocrine Disorders: No - HEMATOLOGICAL/ONCOLOGICAL Hx Blood Disorders: No Other/Comment: CA to Right kidney stage 4. 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 Had his last chemo yesterday 09/19/17 - INTEGUMENTARY Hx Dermatological Problems: No - MUSCULOSKELETAL/RHEUMATOLOGICAL Hx Arthritis: Yes (KNEES) - GASTROINTESTINAL Hx Gastritis: Yes - GENITOURINARY/GYNECOLOGICAL Hx Genitourinary Disorders: No - PSYCHIATRIC Hx Anxiety: Yes Hx Depression: No Hx Post Traumatic Stress Disorder: No Hx Substance Use: No - SURGICAL HISTORY Hx Surgeries: Yes Hx Arthroscopy: No Hx Open Reduction Internal Fixation: No Hx Orthopedic Surgery: Yes (RIGHT SHOULDER ROTO CUFF) Other/Comment: Back surgery 2016 - ANESTHESIA Hx Anesthesia: Yes Hx Anesthesia Reactions: No Hx Malignant Hyperthermia: No Meds Allergies/Adverse Reactions: Allergies Allergy/AdvReac Type Severity Reaction Status Date / Time Penicillins AdvReac Intermediate DIZZINESS Verified 10/20/17 15:08 - Medications Medications: Current Medications Albuterol/Ipratropium (Duoneb 3 Mg/0.5 Mg (3 Ml) Ud) 3 ml INH RQ6 [facility] Last Admin: 10/27/17 13:59 Dose: Not Given Dexamethasone (Decadron Inj) 4 mg IVP DAILY [facility] Last Admin: 10/27/17 10:05 Dose: 4 mg Donepezil HCl (Aricept) 10 mg PO HS [facility] Last Admin: 10/26/17 21:16 Dose: 10 mg Famotidine (Pepcid) 20 mg PO DAILY [facility] Last Admin: 10/27/17 10:05 Dose: 20 mg Metronidazole (Flagyl) 500 mg in 100 mls @ 100 mls/hr IVPB Q8H [facility] PRN Reason: Protocol Last Admin: 10/27/17 14:04 Dose: 100 mls/hr Aztreonam 2 gm/ Sodium (Chloride) 100 mls @ 200 mls/hr IVPB Q8H [facility] PRN Reason: Protocol Last Admin: 10/27/17 14:03 Dose: 200 mls/hr Vancomycin/Sodium Chloride (Vancomycin 1 Gm/Ns 200 Ml) 1 gm in 200 mls @ 133 mls/hr IVPB Q12H [facility] PRN Reason: Protocol Stop: 11/01/17 00:31 Last Admin: 10/27/17 12:21 Dose: 133 mls/hr Norepinephrine Bitartrate 4 mg (/ Dextrose) 254 mls @ 15.24 mls/hr IV .[id number] PRN; Protocol; 4 MCG/MIN PRN Reason: TITRATE PER MD ORDER Last Titration: 10/27/17 12:05 Dose: 6 mcg/min, 22.86 mls/hr Sodium Bicarbonate 150 meq/ (Dextrose) 1,000 mls @ 100 mls/hr IV .Q10H [facility] Last Admin: 10/27/17 09:15 Dose: 100 mls/hr Fentanyl Citrate 2,500 mcg/ (Sodium Chloride) 250 mls @ 19.05 mls/hr IV .Q13H8M LISA; 2 MCG/KG/HR PRN Reason: Protocol Last Admin: 10/27/17 10:28 Dose: 2 mcg/kg/hr, 19.05 mls/hr Moxifloxacin HCl (Avelox) 400 mg GT DAILY [facility] PRN Reason: Protocol Last Admin: 10/27/17 10:05 Dose: 400 mg Ondansetron HCl (Zofran Inj) 4 mg IVP Q6 PRN PRN Reason: Nausea/Vomiting Vitamin A (Vitamin A&D) 0 applic TP Q8 PRN PRN Reason: Dry skin Results - Vital Signs Recent Vital Signs: Last Vital Signs Temp 97.7 F 10/27/17 12:00 Pulse 102 H 10/27/17 13:52 Resp 26 H 10/27/17 13:52 BP 109/64 10/27/17 13:52 Pulse Ox 100 10/27/17 13:52 - Labs Result Diagrams: 10/27/17 06:48 10/27/17 09:15 Labs: Laboratory Results - last 24 hr 10/26/17 10/26/17 10/26/17 16:29 20:55 23:25 WBC RBC Hgb Hct MCV MCH MCHC RDW Plt Count MPV Neut % (Auto) Lymph % (Auto) [place] % (Auto) Eos % (Auto) Baso % (Auto) Neut # (Auto) Lymph # (Auto) [place] # (Auto) Eos # (Auto) Baso # (Auto) Neutrophils % (Manual) Band Neutrophils % Lymphocytes % (Manual) Reactive Lymphs % Monocytes % (Manual) Metamyelocytes % Myelocytes % Promyelocytes % Plasma Cell % (Manual) Nucleated RBC % Smudge Cells Platelet Estimate Large Platelets Polychromasia Poikilocytosis (manual Anisocytosis (manual) Microcytosis (manual) Macrocytosis (manual) Spherocytes Tear Drop Cells Ovalocytes Puncture Site pCO2 pO2 HCO3 ABG pH ABG Total CO2 ABG O2 Saturation ABG Base Excess ABG Hemoglobin ABG Carboxyhemoglobin POC ABG HHb (Measured) ABG Methemoglobin Jt Test ABG Potassium A-a O2 Difference Respiratory Index Hgb O2 Saturation Glucose Lactate Vent Mode Mechanical Rate FiO2 Tidal Volume PEEP Crit Value Called To Crit Value Called By Crit Value Read Back Blood Gas Notified Time Sodium Potassium Chloride Carbon Dioxide Anion Gap BUN Creatinine Est GFR ( Amer) Est GFR (Non-Af Amer) POC Glucose (mg/dL) 135 H 146 H 184 H Random Glucose Lactic Acid Calcium Phosphorus Magnesium Total Bilirubin AST ALT Alkaline Phosphatase CK-MB (Mass) Troponin I NT-Pro-B Natriuret Pep Total Protein Albumin Globulin Albumin/Globulin Ratio Arterial Blood Potassium Urine Color Urine Clarity Urine pH Ur Specific [place] Urine Protein Urine Glucose (UA) Urine Ketones Urine Blood Urine Nitrate Urine Bilirubin Urine Urobilinogen Ur Leukocyte Esterase Urine WBC (Auto) Urine RBC (Auto) Ur Squamous Epith Cells Amorphous Sediment Urine Bacteria Random Vancomycin Urine Opiates Screen Urine Methadone Screen Ur Barbiturates Screen Ur Phencyclidine Scrn Ur Amphetamines Screen U Benzodiazepines Scrn U Oth Cocaine Metabols U Cannabinoids Screen 10/27/17 10/27/17 10/27/17 01:38 02:06 05:22 WBC RBC Hgb Hct MCV MCH MCHC RDW Plt Count MPV Neut % (Auto) Lymph % (Auto) [place] % (Auto) Eos % (Auto) Baso % (Auto) Neut # (Auto) Lymph # (Auto) [place] # (Auto) Eos # (Auto) Baso # (Auto) Neutrophils % (Manual) Band Neutrophils % Lymphocytes % (Manual) Reactive Lymphs % Monocytes % (Manual) Metamyelocytes % Myelocytes % Promyelocytes % Plasma Cell % (Manual) Nucleated RBC % Smudge Cells Platelet Estimate Large Platelets Polychromasia Poikilocytosis (manual Anisocytosis (manual) Microcytosis (manual) Macrocytosis (manual) Spherocytes Tear Drop Cells Ovalocytes Puncture Site Rb Rb pCO2 43 50 H pO2 49 L 53 L HCO3 16.2 L 18.2 L ABG pH 7.20 L 7.20 L ABG Total CO2 18.1 L 21.0 L ABG O2 Saturation 83.5 L 89.2 L ABG Base Excess -10.7 L -8.4 L ABG Hemoglobin 10.9 L 10.6 L ABG Carboxyhemoglobin 2.8 H 2.4 H POC ABG HHb (Measured) 15.9 H 10.5 H ABG Methemoglobin 0.6 0.4 Jt Test Na Na ABG Potassium A-a O2 Difference 610.0 598.0 Respiratory Index 12.4 11.3 Hgb O2 Saturation 80.7 L 86.7 L Glucose Lactate Vent Mode Prvc Prvc Mechanical Rate 16 20 FiO2 100.0 100.0 Tidal Volume 450 400 PEEP 5 12 Crit Value Called To Crit Value Called By Crit Value Read Back Blood Gas Notified Time Sodium Potassium Chloride Carbon Dioxide Anion Gap BUN Creatinine Est GFR ( Amer) Est GFR (Non-Af Amer) POC Glucose (mg/dL) 273 H Random Glucose Lactic Acid Calcium Phosphorus Magnesium Total Bilirubin AST ALT Alkaline Phosphatase CK-MB (Mass) Troponin I NT-Pro-B Natriuret Pep Total Protein Albumin Globulin Albumin/Globulin Ratio Arterial Blood Potassium Urine Color Urine Clarity Urine pH Ur Specific [place] Urine Protein Urine Glucose (UA) Urine Ketones Urine Blood Urine Nitrate Urine Bilirubin Urine Urobilinogen Ur Leukocyte Esterase Urine WBC (Auto) Urine RBC (Auto) Ur Squamous Epith Cells Amorphous Sediment Urine Bacteria Random Vancomycin Urine Opiates Screen Urine Methadone Screen Ur Barbiturates Screen Ur Phencyclidine Scrn Ur Amphetamines Screen U Benzodiazepines Scrn U Oth Cocaine Metabols U Cannabinoids Screen 10/27/17 10/27/17 10/27/17 06:48 06:48 07:26 WBC 28.5 H D RBC 3.72 L Hgb 10.0 L Hct 30.6 L MCV 82.3 MCH 27.0 MCHC 32.8 L RDW 19.8 H Plt Count 138 MPV 9.6 Neut % (Auto) 86.0 H Lymph % (Auto) 8.4 L [place] % (Auto) 5.1 Eos % (Auto) 0.1 Baso % (Auto) 0.4 Neut # (Auto) 24.5 H Lymph # (Auto) 2.4 [place] # (Auto) 1.5 H Eos # (Auto) 0.0 Baso # (Auto) 0.1 Neutrophils % (Manual) 25 L Band Neutrophils % 20 H* Lymphocytes % (Manual) 21 Reactive Lymphs % 3 H Monocytes % (Manual) 7 Metamyelocytes % 5 H Myelocytes % 18 H Promyelocytes % 1 H Plasma Cell % (Manual) TEST NOT PERFORMED Nucleated RBC % 0 Smudge Cells Present Platelet Estimate Normal Large Platelets Present Polychromasia Slight Poikilocytosis (manual Slight Anisocytosis (manual) Slight Microcytosis (manual) Slight Macrocytosis (manual) Slight Spherocytes Slight Tear Drop Cells Slight Ovalocytes Slight Puncture Site pCO2 pO2 HCO3 ABG pH ABG Total CO2 ABG O2 Saturation ABG Base Excess ABG Hemoglobin ABG Carboxyhemoglobin POC ABG HHb (Measured) ABG Methemoglobin Jt Test ABG Potassium A-a O2 Difference Respiratory Index Hgb O2 Saturation Glucose Lactate Vent Mode Mechanical Rate FiO2 Tidal Volume PEEP Crit Value Called To Crit Value Called By Crit Value Read Back Blood Gas Notified Time Sodium 140 Potassium 3.9 Chloride 107 Carbon Dioxide 20 L Anion Gap 17 BUN 18 Creatinine 1.3 Est GFR ( Amer) > 60 Est GFR (Non-Af Amer) 56 POC Glucose (mg/dL) 193 H Random Glucose 217 H Lactic Acid Calcium 8.1 L Phosphorus Magnesium Total Bilirubin 0.7 AST 92 H D ALT 45 Alkaline Phosphatase 331 H D CK-MB (Mass) Troponin I NT-Pro-B Natriuret Pep Total Protein 6.0 L Albumin 2.7 L Globulin 3.3 Albumin/Globulin Ratio 0.8 L Arterial Blood Potassium Urine Color Urine Clarity Urine pH Ur Specific [place] Urine Protein Urine Glucose (UA) Urine Ketones Urine Blood Urine Nitrate Urine Bilirubin Urine Urobilinogen Ur Leukocyte Esterase Urine WBC (Auto) Urine RBC (Auto) Ur Squamous Epith Cells Amorphous Sediment Urine Bacteria Random Vancomycin Urine Opiates Screen Urine Methadone Screen Ur Barbiturates Screen Ur Phencyclidine Scrn Ur Amphetamines Screen U Benzodiazepines Scrn U Oth Cocaine Metabols U Cannabinoids Screen 10/27/17 10/27/17 10/27/17 08:32 09:15 09:15 WBC RBC Hgb Hct MCV MCH MCHC RDW Plt Count MPV Neut % (Auto) Lymph % (Auto) [place] % (Auto) Eos % (Auto) Baso % (Auto) Neut # (Auto) Lymph # (Auto) [place] # (Auto) Eos # (Auto) Baso # (Auto) Neutrophils % (Manual) Band Neutrophils % Lymphocytes % (Manual) Reactive Lymphs % Monocytes % (Manual) Metamyelocytes % Myelocytes % Promyelocytes % Plasma Cell % (Manual) Nucleated RBC % Smudge Cells Platelet Estimate Large Platelets Polychromasia Poikilocytosis (manual Anisocytosis (manual) Microcytosis (manual) Macrocytosis (manual) Spherocytes Tear Drop Cells Ovalocytes Puncture Site Rfa pCO2 46 H pO2 17 L* HCO3 14.6 L ABG pH 7.19 L* ABG Total CO2 19.0 L ABG O2 Saturation 27.9 L ABG Base Excess -10.4 L ABG Hemoglobin ABG Carboxyhemoglobin POC ABG HHb (Measured) ABG Methemoglobin Jt Test Na ABG Potassium 2.9 L A-a O2 Difference 425.0 Respiratory Index 25.0 Hgb O2 Saturation Glucose 131 H Lactate 2.7 H Vent Mode Simv/pc Mechanical Rate 20 FiO2 70.0 Tidal Volume PEEP 5 Crit Value Called To Crit Value Called By [email or web address],produce manager Crit Value Read Back Y Blood Gas Notified Time 845 Sodium 143.0 142 Potassium 4.0 Chloride 114.0 H 107 Carbon Dioxide 23 Anion Gap 16 BUN 20 Creatinine 1.4 Est GFR ( Amer) > 60 Est GFR (Non-Af Amer) 51 POC Glucose (mg/dL) Random Glucose 157 H Lactic Acid 4.0 H* Calcium 7.6 L Phosphorus 4.2 Magnesium 2.0 Total Bilirubin 0.6 AST 71 H D ALT 48 Alkaline Phosphatase 272 H CK-MB (Mass) 2.21 Troponin I 0.2830 H* NT-Pro-B Natriuret Pep 3910 H Total Protein 5.2 L Albumin 2.3 L Globulin 2.9 Albumin/Globulin Ratio 0.8 L Arterial Blood Potassium 2.9 L Urine Color Urine Clarity Urine pH Ur Specific [place] Urine Protein Urine Glucose (UA) Urine Ketones Urine Blood Urine Nitrate Urine Bilirubin Urine Urobilinogen Ur Leukocyte Esterase Urine WBC (Auto) Urine RBC (Auto) Ur Squamous Epith Cells Amorphous Sediment Urine Bacteria Random Vancomycin Urine Opiates Screen Urine Methadone Screen Ur Barbiturates Screen Ur Phencyclidine Scrn Ur Amphetamines Screen U Benzodiazepines Scrn U Oth Cocaine Metabols U Cannabinoids Screen 10/27/17 10/27/17 10/27/17 09:15 10:41 10:41 WBC RBC Hgb Hct MCV MCH MCHC RDW Plt Count MPV Neut % (Auto) Lymph % (Auto) [place] % (Auto) Eos % (Auto) Baso % (Auto) Neut # (Auto) Lymph # (Auto) [place] # (Auto) Eos # (Auto) Baso # (Auto) Neutrophils % (Manual) Band Neutrophils % Lymphocytes % (Manual) Reactive Lymphs % Monocytes % (Manual) Metamyelocytes % Myelocytes % Promyelocytes % Plasma Cell % (Manual) Nucleated RBC % Smudge Cells Platelet Estimate Large Platelets Polychromasia Poikilocytosis (manual Anisocytosis (manual) Microcytosis (manual) Macrocytosis (manual) Spherocytes Tear Drop Cells Ovalocytes Puncture Site pCO2 pO2 HCO3 ABG pH ABG Total CO2 ABG O2 Saturation ABG Base Excess ABG Hemoglobin ABG Carboxyhemoglobin POC ABG HHb (Measured) ABG Methemoglobin Jt Test ABG Potassium A-a O2 Difference Respiratory Index Hgb O2 Saturation Glucose Lactate Vent Mode Mechanical Rate FiO2 Tidal Volume PEEP Crit Value Called To Crit Value Called By Crit Value Read Back Blood Gas Notified Time Sodium Potassium Chloride Carbon Dioxide Anion Gap BUN Creatinine Est GFR ( Amer) Est GFR (Non-Af Amer) POC Glucose (mg/dL) Random Glucose Lactic Acid Calcium Phosphorus Magnesium Total Bilirubin AST ALT Alkaline Phosphatase CK-MB (Mass) Troponin I NT-Pro-B Natriuret Pep Total Protein Albumin Globulin Albumin/Globulin Ratio Arterial Blood Potassium Urine Color [place] Urine Clarity Hazy Urine pH 5.0 Ur Specific [place] 1.019 Urine Protein 2+ H Urine Glucose (UA) 1+ H Urine Ketones Negative Urine Blood 1+ H Urine Nitrate Negative Urine Bilirubin Negative Urine Urobilinogen Normal Ur Leukocyte Esterase Trace Urine WBC (Auto) 12 H Urine RBC (Auto) 5 H Ur Squamous Epith Cells 1 Amorphous Sediment Moderate H Urine Bacteria Rare Random Vancomycin 10.4 Urine Opiates Screen Positive H Urine Methadone Screen Negative Ur Barbiturates Screen Negative Ur Phencyclidine Scrn Negative Ur Amphetamines Screen Negative U Benzodiazepines Scrn Positive U Oth Cocaine Metabols Negative U Cannabinoids Screen Negative 10/27/17 10/27/17 11:17 13:24 WBC RBC Hgb Hct MCV MCH MCHC RDW Plt Count MPV Neut % (Auto) Lymph % (Auto) [place] % (Auto) Eos % (Auto) Baso % (Auto) Neut # (Auto) Lymph # (Auto) [place] # (Auto) Eos # (Auto) Baso # (Auto) Neutrophils % (Manual) Band Neutrophils % Lymphocytes % (Manual) Reactive Lymphs % Monocytes % (Manual) Metamyelocytes % Myelocytes % Promyelocytes % Plasma Cell % (Manual) Nucleated RBC % Smudge Cells Platelet Estimate Large Platelets Polychromasia Poikilocytosis (manual Anisocytosis (manual) Microcytosis (manual) Macrocytosis (manual) Spherocytes Tear Drop Cells Ovalocytes Puncture Site pCO2 pO2 HCO3 ABG pH ABG Total CO2 ABG O2 Saturation ABG Base Excess ABG Hemoglobin ABG Carboxyhemoglobin POC ABG HHb (Measured) ABG Methemoglobin Jt Test ABG Potassium A-a O2 Difference Respiratory Index Hgb O2 Saturation Glucose Lactate Vent Mode Mechanical Rate FiO2 Tidal Volume PEEP Crit Value Called To Crit Value Called By Crit Value Read Back Blood Gas Notified Time Sodium Potassium Chloride Carbon Dioxide Anion Gap BUN Creatinine Est GFR ( Amer) Est GFR (Non-Af Amer) POC Glucose (mg/dL) 188 H Random Glucose Lactic Acid 2.1 Calcium Phosphorus Magnesium Total Bilirubin AST ALT Alkaline Phosphatase CK-MB (Mass) Troponin I NT-Pro-B Natriuret Pep Total Protein Albumin Globulin Albumin/Globulin Ratio Arterial Blood Potassium Urine Color Urine Clarity Urine pH Ur Specific [place] Urine Protein Urine Glucose (UA) Urine Ketones Urine Blood Urine Nitrate Urine Bilirubin Urine Urobilinogen Ur Leukocyte Esterase Urine WBC (Auto) Urine RBC (Auto) Ur Squamous Epith Cells Amorphous Sediment Urine Bacteria Random Vancomycin Urine Opiates Screen Urine Methadone Screen Ur Barbiturates Screen Ur Phencyclidine Scrn Ur Amphetamines Screen U Benzodiazepines Scrn U Oth Cocaine Metabols U Cannabinoids Screen
[2017-10-27] MEDS ORDERED: (Novolin R) Insulin Human Regular 100 units/ml vial SC SCH (15:00)
--- NOTE | 2017-10-27 15:03 | CP.PCM.PN ---
Subjective - Date & Time of Evaluation Date of Evaluation: 10/27/17 Time of Evaluation: 14:58 - Subjective Subjective: COVERING DR PLATA/CONSTANTINE Intubated and sedated but responsive to verbal commands. No emesis or blood in NGT. Objective - Vital Signs/Intake and Output Vital Signs (last 24 hours): Temp Pulse Resp BP Pulse Ox 97.7 F 102 H 26 H 109/64 100 10/27/17 12:00 10/27/17 13:52 10/27/17 13:52 10/27/17 13:52 10/27/17 13:52 Intake and Output: 10/27/17 10/27/17 06:59 18:59 Intake Total 964.8 2222.5 Output Total 1050 Balance 964.8 1172.5 - Medications Medications: Current Medications Albuterol/Ipratropium (Duoneb 3 Mg/0.5 Mg (3 Ml) Ud) 3 ml INH RQ6 [facility] Last Admin: 10/27/17 13:59 Dose: Not Given Dexamethasone (Decadron Inj) 4 mg IVP DAILY [facility] Last Admin: 10/27/17 10:05 Dose: 4 mg Donepezil HCl (Aricept) 10 mg PO HS [facility] Last Admin: 10/26/17 21:16 Dose: 10 mg Famotidine (Pepcid) 20 mg PO DAILY [facility] Last Admin: 10/27/17 10:05 Dose: 20 mg Metronidazole (Flagyl) 500 mg in 100 mls @ 100 mls/hr IVPB Q8H [facility] PRN Reason: Protocol Last Admin: 10/27/17 14:04 Dose: 100 mls/hr Aztreonam 2 gm/ Sodium (Chloride) 100 mls @ 200 mls/hr IVPB Q8H [facility] PRN Reason: Protocol Last Admin: 10/27/17 14:03 Dose: 200 mls/hr Vancomycin/Sodium Chloride (Vancomycin 1 Gm/Ns 200 Ml) 1 gm in 200 mls @ 133 mls/hr IVPB Q12H [facility] PRN Reason: Protocol Stop: 11/01/17 00:31 Last Admin: 10/27/17 12:21 Dose: 133 mls/hr Norepinephrine Bitartrate 4 mg (/ Dextrose) 254 mls @ 15.24 mls/hr IV .[id number] PRN; Protocol; 4 MCG/MIN PRN Reason: TITRATE PER MD ORDER Last Titration: 10/27/17 12:05 Dose: 6 mcg/min, 22.86 mls/hr Sodium Bicarbonate 150 meq/ (Dextrose) 1,000 mls @ 100 mls/hr IV .Q10H [facility] Last Admin: 10/27/17 09:15 Dose: 100 mls/hr Fentanyl Citrate 2,500 mcg/ (Sodium Chloride) 250 mls @ 19.05 mls/hr IV .Q13H8M [facility]; 2 MCG/KG/HR PRN Reason: Protocol Last Admin: 10/27/17 10:28 Dose: 2 mcg/kg/hr, 19.05 mls/hr Moxifloxacin HCl (Avelox) 400 mg GT DAILY [facility] PRN Reason: Protocol Last Admin: 10/27/17 10:05 Dose: 400 mg Ondansetron HCl (Zofran Inj) 4 mg IVP Q6 PRN PRN Reason: Nausea/Vomiting Vitamin A (Vitamin A&D) 0 applic TP Q8 PRN PRN Reason: Dry skin - Labs Labs: 10/27/17 06:48 10/27/17 09:15 - Constitutional Appears: No Acute Distress - Head Exam Additional comments: Intubated and NGT in place. NO blood or residual noted by nurse. - Respiratory Exam Respiratory Exam: Decreased Breath Sounds - Cardiovascular Exam Cardiovascular Exam: Tachycardia - GI/Abdominal Exam GI & Abdominal Exam: Distended, Firm, Diminished Bowel Sounds. absent: Tenderness, Mass, Rebound - Rectal Exam Rectal Exam: Deferred - Extremities Exam Extremities Exam: Pedal Edema - Neurological Exam Neurological Exam: Alert, Awake Assessment and Plan (1) Gastric outlet obstruction Assessment & Plan: Cllinically improved. Has NGT in place. Supportive care. consider beginning NGT feedings slowly. Status: Acute (2) Liver metastases Assessment & Plan: Enzymes stable. Supportive Care. Oncology and ICU follow up. Prognosis-poor. Status: Acute
[2017-10-27 16:10] LABS: ARTERIAL BLOOD GAS HCO3 24.6 mmol/L (21-28); ARTERIAL BLOOD GAS O2 SAT 94.7 % (95-98); ARTERIAL BLOOD GAS PCO2 47 mm/Hg (35-45); ARTERIAL BLOOD GAS PH 7.35 (7.35-7.45); ARTERIAL BLOOD GAS PO2 63 mm/Hg (80-100); ARTERIAL BLOOD GAS TCO2 27.3 mmol/L (22-28)
--- NOTE | 2017-10-27 17:09 | RAD ---
HISTORY: Post intubation COMPARISON: 10/26/2017. FINDINGS: The right MediPort terminates in the SVC. Endotracheal tube terminates 2.5 cm proximal to the joe. The nasogastric tube terminates in the stomach. LUNGS: There is persistent diffuse confluent airspace disease in the lungs with air bronchograms, slightly improved since the prior examination. PLEURA: No significant pleural effusion identified, no pneumothorax apparent. CARDIOVASCULAR: Normal. OSSEOUS STRUCTURES: No significant abnormalities. VISUALIZED UPPER ABDOMEN: Normal. OTHER FINDINGS: None. IMPRESSION: Endotracheal tube terminates 2.5 cm proximal to the joe. Interval mild improvement in pulmonary edema versus diffuse consolidation. Findings consistent with the ARDS.
[2017-10-27] MEDS: Sodium Bicarbonate (8.4%) 50 Meq Syringe IVP SCH ×2 (17:55→23:55)
[2017-10-27] MEDS: (Novolin R) Insulin Human Regular 100 units/ml vial SC SCH (17:56)
[2017-10-28] MEDS: (Novolin R) Insulin Human Regular 100 units/ml vial SC SCH ×4 (00:15→18:50)
[2017-10-28] MEDS: Albuterol-Ipratrop 3 mg / 0.5 (3 ml) UD INH SCH ×4 (01:23→19:17)
--- NOTE | 2017-10-28 02:24 | CON ---
DATE: 10/27/2017 REQUESTED BY: Dr. Gale. HISTORY OF PRESENT ILLNESS: This patient is a 62-year-old male, he has a history of small cell CA of the lung, he has metastasis to the liver and right kidney failure. He has had multiple admissions with abdominal pain with pancreatitis. He also gets chemotherapy and he was admitted 10/20/2017 to the hospital under Dr. Anson Hung and he has history of pancreatitis. He also has had chemo. He came in again with abdominal pain this time with elevated liver enzymes and he was found to have gastric outlet obstruction. He has a large lesion in the pancreatic area and the patient since then has been in the hospital. He remained neutropenic and he did get one short of Neupogen and he was improving and he was started on food, but then [facility] was called in and they suspect if he aspirated, he is presently intubated and I am asked to evaluate for IV antibiotics as he is allergic to penicillin and he remains intubated at this time. He is also on Levophed and he is on multiple antibiotics. He is on vancomycin, Azactam, Avelox, Flagyl as well as vancomycin, sodium bicarbonate, norepinephrine, metronidazole. He remains with a high white count. The patient is intubated with eyes open at this time, he is sedated on Diprivan hence I cannot ask him any review of system. So the patient was seen and I want to go over his further history from the chart. Moxifloxacin and other medications were just added and he is being followed by Dr. Cortés as well as Dr. De La Cruz came to see him and he thinks his gastric outlet obstruction has improved. PAST MEDICAL HISTORY: Significant for hypertension, small cell CA, kidney cancer. FAMILY HISTORY: Significant for mother who had Alzheimer's disease, diabetes mellitus. Father had lung cancer and . PAST SURGICAL HISTORY: [facility] and he had a shoulder surgery in the past. ALLERGIES: HE IS ALLERGIC TO PENICILLIN. SOCIAL HISTORY: He smoked 1 pack a day for 35 years until he developed CA which was 3 months ago. MEDICATIONS: He is on Azactam, he is also on dexamethasone which can give the high white count, donepezil, famotidine, fentanyl, Insulin, metronidazole, moxifloxacin, norepinephrine and his lactate was high, so he was being treated for sepsis and he is on vasopressor at this time. PHYSICAL EXAMINATION: VITAL SIGNS: I find his temperature now is 97.3, heart rate of 103, respirations are 29, saturations 94%. GENERAL: He is alert, awake. HEENT: Head is atraumatic, normocephalic. Pupils are reacting to light. NECK: Supple. He is intubated. LUNGS: Have decreased breath sounds on the right side more than the left. HEART: S1 and S2 are tachy. ABDOMEN: Remains with no guarding, no rigidity present. EXTREMITIES: Have no edema. SKIN: Warm to touch. LABORATORY DATA: Noted, white count is 28.5, hemoglobin is 10, hematocrit 30.6, platelet count is 138. His white count is from this morning and neutrophils are 20, lymphocytes at 21, myelocytes are 18 and so it is a combination. Cultures have been ordered, blood, sputum, as well as urine cultures. His creatinine is 1.4, BUN is 20, sodium is 142, calcium is 7.6, lactate level was 4 this morning and it is coming down to 1.7, troponin was 0.2830. He had a chest x-ray. He went for duplex scan lower extremities. IMPRESSION: This patient is of course septic with lactate level is high and he has had acute respiratory failure, has gastric outlet obstruction which was improving may have aspirated at this time and he is post chemotherapy, he was also on Neupogen, he is on dexamethasone, he has lung cancer with metastatic disease, he is immunocompromised so has multifactorial problems. PLAN: Suggest at this time to continue with Azactam, I would discontinue and continue the rest for now and we will wait for the sputum cultures to help us out with guiding and with the antibiotics. We will follow. Juan Carlos Lomax MD
[2017-10-28] MEDS: Sodium Bicarbonate (8.4%) 50 Meq Syringe IVP SCH (05:06)
[2017-10-28] MEDS: metroNIDAZOLE IV 500 mg/100 ml 500 MG/100 ML BAG IVPB SCH ×3 (05:26→21:00)
[2017-10-28 05:58] LABS: ABG ALLEN TEST POS; ARTERIAL BLOOD GAS HCO3 30.1 mmol/L (21-28); ARTERIAL BLOOD GAS HEMOGLOBIN 9.3 g/dL (11.7-17.4); ARTERIAL BLOOD GAS O2 SAT 91.7 % (95-98); ARTERIAL BLOOD GAS PCO2 77 mm/Hg (35-45); ARTERIAL BLOOD GAS PH 7.27 (7.35-7.45); ARTERIAL BLOOD GAS PO2 57 mm/Hg (80-100); ARTERIAL BLOOD GAS TCO2 37.8 mmol/L (22-28)
[2017-10-28] MEDS: Aztreonam 2 GM in Sodium Chloride 0.9% 100 ML IVPB SCH ×3 (06:45→22:00)
[2017-10-28 06:49] LABS: BASO # 0.1 K/uL (0.0-0.2); BASO % 0.3 % (0.0-2.0); HEMOGLOBIN 8.9 g/dL (12.0-18.0); LYMPH # 1.7 K/uL (1.0-4.3); LYMPH % 7.8 % (20.0-40.0); MEAN CELL VOLUME 81.3 fL (80.0-94.0); MEAN CORPUSCULAR HEMOGLOBIN 27.2 pg (27.0-31.0); MEAN CORPUSCULAR HGB CONC 33.5 g/dL (33.0-37.0); MEAN PLATELET VOLUME 10.1 fL (7.2-11.7); MONO # 0.5 K/uL (0.0-0.8); MONO % 2.3 % (0.0-10.0); NEUT # 19.1 K/uL (1.8-7.0); NEUT % 89.6 % (50.0-75.0); NRBC % 1.7 % (0.0-2.0); PLATELET COUNT 83 K/uL (130-400); RBC 3.26 Mil/uL (4.40-5.90); RED CELL DISTRIBUTION WIDTH 20.8 % (11.5-14.5); WHITE BLOOD COUNT 21.3 K/uL (4.8-10.8)
[2017-10-28 07:20] LABS: ALB/GLOB RATIO 0.8 (1.0-2.1); ALBUMIN 2.6 g/dL (3.5-5.0); ALT/SGPT 46 U/L (21-72); AST/SGOT 53 U/L (17-59); BLOOD UREA NITROGEN 23 mg/dL (9-20); CALCIUM 7.6 mg/dl (8.6-10.4); GFR AFRICAN-AMERICAN > 60; GFR NON-AFRICAN AMERICAN > 60
[2017-10-28 08:29] LABS: BANDS 22 % (0-2); LYMPHOCYTE 11 % (20-40); METAMYELOCYTE 5 % (0-0); MYELOCYTE 15 % (0-0); NEUTROPHIL 38 % (50-75); TOTAL CELLS COUNTED 100
[2017-10-28 08:30] LABS: MONOCYTE 6 % (0-10); REACTIVE LYMPHOCYTES 3 % (0-0)
[2017-10-28 08:31] LABS: NUCLEATED RED BLOOD CELL 7 % (0-0)
[2017-10-28 08:32] LABS: ANISOCYTOSIS MODERATE; PLATELET ESTIMATE DECREASED (NORMAL); POIKILOCYTOSIS SLIGHT
[2017-10-28 08:33] LABS: HYPOCHROMIC SLIGHT; LARGE PLATELETS PRESENT; MICROCYTOSIS SLIGHT; POLYCHROMIC SLIGHT
[2017-10-28 08:34] LABS: OVALOCYTES SLIGHT; TARGET CELLS SLIGHT
--- NOTE | 2017-10-28 08:39 | RAD ---
HISTORY: intubated COMPARISON: 10/27/2017. FINDINGS: The right MediPort terminates in the SVC. The endotracheal tube terminates in the mid trachea. The nasogastric tube terminates in the stomach. LUNGS: There is interval worsening of diffuse airspace disease in both lungs with worsening pleural effusions. PLEURA: No pneumothorax. CARDIOVASCULAR: The heart remains enlarged. OSSEOUS STRUCTURES: No significant change. VISUALIZED UPPER ABDOMEN: Normal. OTHER FINDINGS: None. IMPRESSION: Interval progression of pulmonary edema/ multifocal pneumonia and pleural effusions. Stable position of support line and tubes.
[2017-10-28] MEDS: Dexamethasone 4 mg/1 ml IVP SCH (10:50)
--- NOTE | 2017-10-28 10:56 | CP.CCUPN ---
CCU Subjective - Physician Review Subjective (Free Text): Patient's norepi requirement decreased frm 12 to 4 mcg, urine output more than 0.5 ml/kg/hr, lactic normalizing, morning ABG reveals slight increased in pCo2, patient less agitated, no BMS, not in pain, comfortable, (+)secretions Critical Care Time Spent (in minutes): 35 CCU Objective - Vital Signs / Intake & Output Vital Signs (Last 4 hours): Vital Signs Temp Pulse Resp BP Pulse Ox 10/28/17 09:00 96 H 10 L 94 L 10/28/17 08:53 96 H 11 L 100/69 93 L 10/28/17 08:23 96 H 12 115/75 93 L 10/28/17 08:00 97.4 F L 96 H 11 L 93 L 10/28/17 07:52 96 H 9 L 115/77 94 L 10/28/17 07:22 98 H 12 108/72 93 L 10/28/17 07:13 97 H 13 102/64 93 L 10/28/17 07:00 100 H 15 103/72 95 10/28/17 06:53 100 H 11 L 103/72 92 L Intake and Output (Last 8hrs): Intake & Output 10/27/17 10/28/17 10/28/17 22:59 06:59 14:59 Intake Total 1523.7 946.8 189.6 Output Total 500 550 140 Balance 1023.7 396.8 49.6 Intake: IV 420 250 Intake, IV Amount 1043.7 696.8 159.6 Right Medial Port Femoral 143.7 120 45 Right Port-A-Cath 200.0 276.8 114.6 Right Proximal Port 500 300 Femoral Right Wrist 200 0 Oral 0 0 30 Tube Feeding 60 Output: Urine 500 550 140 Urethral (Clay) 500 550 140 Other: # Bowel Movements 0 0 0 - Physical Exam Head: Positive for: Atraumatic, Normocephalic Pupils: Positive for: PERRL Extroacular Muscles: Positive for: EOMI Conjunctiva: Positive for: Normal Mouth: Positive for: Dry Respiratory/Chest: Positive for: Decreased Breath Sounds Cardiovascular: Positive for: Tachycardic Abdomen: Positive for: Normal Bowel Sounds. Negative for: Tenderness, Distention Upper Extremity: Positive for: Normal Inspection, NORMAL PULSES, Neurovascularly Intact, Capillary Refill < 2s Lower Extremity: Positive for: Normal Inspection, NORMAL PULSES, Neurovascularly Intact, Capillary Refill < 2 s Skin: Positive for: Warm, Dry, Normal Color Psychiatric: Positive for: Alert - Medications Active Medications: Active Medications Generic Name Dose Route Start Last Admin Trade Name Freq PRN Reason Stop Dose Admin Albuterol/Ipratropium 3 ml 10/26/17 20:00 10/28/17 07:28 Duoneb 3 Mg/0.5 Mg (3 Ml) Ud INH 3 ml RQ6 LISA Administration Dexamethasone 4 mg 10/23/17 15:15 10/27/17 10:05 Decadron Inj IVP 4 mg DAILY LISA Administration Donepezil HCl 10 mg 10/20/17 22:00 10/27/17 21:24 Aricept PO 10 mg HS LISA Administration Famotidine 20 mg 10/22/17 10:00 10/27/17 10:05 Pepcid PO 20 mg DAILY LISA Administration Metronidazole 500 mg in 100 mls @ 100 mls/hr 10/20/17 22:00 10/28/17 05:26 Flagyl IVPB 100 mls/hr Q8H LISA Administration Protocol Aztreonam 2 gm/ Sodium 100 mls @ 200 mls/hr 10/20/17 22:30 10/28/17 06:45 Chloride IVPB 200 mls/hr Q8H LISA Administration Protocol Vancomycin/Sodium Chloride 1 gm in 200 mls @ 133 mls/hr 10/27/17 00:30 23:58 Vancomycin 1 Gm/Ns 200 Ml IVPB 11/01/17 00:31 133 mls/hr Q12H LISA Administration Protocol Norepinephrine Bitartrate 4 mg 254 mls @ 15.24 mls/hr 10/27/17 08:30 17:48 / Dextrose IV 4 mcg/min .[id number] PRN 15.24 mls/hr TITRATE PER MD ORDER Administration Protocol 4 MCG/MIN Fentanyl Citrate 2,500 mcg/ 250 mls @ 19.05 mls/hr 10/27/17 09:30 10/28/17 05 :00 Sodium Chloride IV 4 mcg/kg/hr .[id number] LISA 38.1 mls/hr Protocol Administration 2 MCG/KG/HR Insulin Human Regular 0 unit 10/27/17 18:00 10/28/17 06:00 Novolin R SC Not Given Q6H [facility] Protocol Moxifloxacin HCl 400 mg 10/28/17 10:45 Avelox NG 10/31/17 10:01 DAILY [facility] Protocol Ondansetron HCl 4 mg 10/20/17 18:06 Zofran Inj IVP Q6 PRN Nausea/Vomiting Potassium Chloride 40 meq 10/28/17 14:00 Potassium Chloride Oral Soln PO 10/28/17 22:01 Q8 [facility] Vitamin A 0 applic 10/27/17 12:09 10/27/17 17:02 Vitamin A&D TP 1 applic Q8 PRN Administration Dry skin - Patient Studies Lab Studies: Microbiology Studies 10/27/17 10:41 Blood Culture - Preliminary Blood-Venous NO GROWTH AFTER 24 HOURS 10/27/17 09:15 Urine Culture - Final Urine,Clay No Growth (<1,000 CFU/ML) 10/27/17 09:15 Blood Culture - Preliminary Blood-Venous NO GROWTH AFTER 24 HOURS 10/27/17 10:41 Gram Stain - Final Trachasp Lab Studies 10/28/17 10/28/17 10/28/17 Range/Units 06:41 06:35 05:45 WBC 21.3 H (4.8-10.8) K/uL RBC 3.26 L (4.40-5.90) Mil/uL Hgb 8.9 L (12.0-18.0) g/dL Hct 26.5 L (35.0-51.0) % MCV 81.3 (80.0-94.0) fL MCH 27.2 (27.0-31.0) pg MCHC 33.5 (33.0-37.0) g/dL RDW 20.8 H (11.5-14.5) % Plt Count 83 L D (130-400) K/uL MPV 10.1 (7.2-11.7) fL Neut % (Auto) 89.6 H (50.0-75.0) % Lymph % (Auto) 7.8 L (20.0-40.0) % [place] % (Auto) 2.3 (0.0-10.0) % Eos % (Auto) 0.0 (0.0-4.0) % Baso % (Auto) 0.3 (0.0-2.0) % Neut # (Auto) 19.1 H (1.8-7.0) K/uL Lymph # (Auto) 1.7 (1.0-4.3) K/uL [place] # (Auto) 0.5 (0.0-0.8) K/uL Eos # (Auto) 0.0 (0.0-0.7) K/uL Baso # (Auto) 0.1 (0.0-0.2) K/uL Neutrophils % (Manual) 38 L (50-75) % Band Neutrophils % 22 H* (0-2) % Lymphocytes % (Manual) 11 L (20-40) % Reactive Lymphs % 3 H (0-0) % Monocytes % (Manual) 6 (0-10) % Metamyelocytes % 5 H (0-0) % Myelocytes % 15 H (0-0) % Promyelocytes % (0-0) % Plasma Cell % (Manual) Nucleated RBC % 7 H (0-0) % Smudge Cells Platelet Estimate Decreased L (NORMAL) Large Platelets Present Polychromasia Slight Hypochromasia (manual) Slight Poikilocytosis (manual Slight Anisocytosis (manual) Moderate Microcytosis (manual) Slight Macrocytosis (manual) Slight Spherocytes Target Cells Slight Tear Drop Cells Ovalocytes Slight Puncture Site pCO2 (35-45) mm/Hg pO2 (80-100) mm/Hg HCO3 (21-28) mmol/L ABG pH (7.35-7.45) ABG Total CO2 (22-28) mmol/L ABG O2 Saturation (95-98) % ABG Base Excess (-2.0-3.0) mmol/L ABG Hemoglobin (11.7-17.4) g/dL ABG Carboxyhemoglobin (0.5-1.5) % POC ABG HHb (Measured) (0.0-5.0) % ABG Methemoglobin (0.0-3.0) % Jt Test ABG Potassium (3.6-5.2) mmol/L A-a O2 Difference mm/Hg Respiratory Index Hgb O2 Saturation (95.0-98.0) % Sodium 147 (132-148) mmol/l Chloride 107 (98-107) mmol/L Glucose (75-110) mg/dl Lactate (0.7-2.1) mmol/L Vent Mode Mechanical Rate FiO2 % Tidal Volume PEEP Crit Value Called To Crit Value Called By Crit Value Read Back Blood Gas Notified Time Potassium 3.5 L (3.6-5.2) mmol/L Carbon Dioxide 31 H (22-30) mmol/L Anion Gap 13 (10-20) BUN 23 H (9-20) mg/dL Creatinine 1.0 (0.8-1.5) mg/dL Est GFR ( Amer) > 60 Est GFR (Non-Af Amer) > 60 POC Glucose (mg/dL) 146 H (65-110) mg/dL Random Glucose 141 H (75-110) mg/dL Lactic Acid (0.7-2.1) mmol/L Calcium 7.6 L (8.6-10.4) mg/dl Phosphorus 3.6 (2.5-4.5) mg/dL Magnesium 2.0 (1.6-2.3) mg/dL Total Bilirubin 0.7 (0.2-1.3) mg/dL AST 53 (17-59) U/L ALT 46 (21-72) U/L Alkaline Phosphatase 322 H (38-126) U/L Total Protein 5.7 L (6.3-8.3) g/dL Albumin 2.6 L (3.5-5.0) g/dL Globulin 3.1 (2.2-3.9) gm/dL Albumin/Globulin Ratio 0.8 L (1.0-2.1) Arterial Blood Potassium (3.6-5.2) mmol/L Random Vancomycin ug/mL Urine Opiates Screen (NEGATIVE) Urine Methadone Screen (NEGATIVE) Ur Barbiturates Screen (NEGATIVE) Ur Phencyclidine Scrn (NEGATIVE) Ur Amphetamines Screen (NEGATIVE) U Benzodiazepines Scrn (NEGATIVE) U Oth Cocaine Metabols (NEGATIVE) U Cannabinoids Screen (NEGATIVE) 10/28/17 10/27/17 10/27/17 Range/Units 05:23 23:47 20:50 WBC (4.8-10.8) K/uL RBC (4.40-5.90) Mil/uL Hgb (12.0-18.0) g/dL Hct (35.0-51.0) % MCV (80.0-94.0) fL MCH (27.0-31.0) pg MCHC (33.0-37.0) g/dL RDW (11.5-14.5) % Plt Count (130-400) K/uL MPV (7.2-11.7) fL Neut % (Auto) (50.0-75.0) % Lymph % (Auto) (20.0-40.0) % [place] % (Auto) (0.0-10.0) % Eos % (Auto) (0.0-4.0) % Baso % (Auto) (0.0-2.0) % Neut # (Auto) (1.8-7.0) K/uL Lymph # (Auto) (1.0-4.3) K/uL [place] # (Auto) (0.0-0.8) K/uL Eos # (Auto) (0.0-0.7) K/uL Baso # (Auto) (0.0-0.2) K/uL Neutrophils % (Manual) (50-75) % Band Neutrophils % (0-2) % Lymphocytes % (Manual) (20-40) % Reactive Lymphs % (0-0) % Monocytes % (Manual) (0-10) % Metamyelocytes % (0-0) % Myelocytes % (0-0) % Promyelocytes % (0-0) % Plasma Cell % (Manual) Nucleated RBC % (0-0) % Smudge Cells Platelet Estimate (NORMAL) Large Platelets Polychromasia Hypochromasia (manual) Poikilocytosis (manual Anisocytosis (manual) Microcytosis (manual) Macrocytosis (manual) Spherocytes Target Cells Tear Drop Cells Ovalocytes Puncture Site Rr pCO2 77 H* (35-45) mm/Hg pO2 57 L (80-100) mm/Hg HCO3 30.1 H (21-28) mmol/L ABG pH 7.27 L (7.35-7.45) ABG Total CO2 37.8 H (22-28) mmol/L ABG O2 Saturation 91.7 L (95-98) % ABG Base Excess 6.8 H (-2.0-3.0) mmol/L ABG Hemoglobin 9.3 L (11.7-17.4) g/dL ABG Carboxyhemoglobin 2.3 H (0.5-1.5) % POC ABG HHb (Measured) 8.0 H (0.0-5.0) % ABG Methemoglobin 1.0 (0.0-3.0) % Jt Test Pos ABG Potassium (3.6-5.2) mmol/L A-a O2 Difference 560.0 mm/Hg Respiratory Index 9.8 Hgb O2 Saturation 88.7 L (95.0-98.0) % Sodium (132-148) mmol/l Chloride (98-107) mmol/L Glucose (75-110) mg/dl Lactate (0.7-2.1) mmol/L Vent Mode Pc Mechanical Rate 20 FiO2 100.0 % Tidal Volume PEEP 5 Crit Value Called To Shelley rn Crit Value Called By Demetrius mechanical energy engineer Crit Value Read Back Y Blood Gas Notified Time 558 Potassium (3.6-5.2) mmol/L Carbon Dioxide (22-30) mmol/L Anion Gap (10-20) BUN (9-20) mg/dL Creatinine (0.8-1.5) mg/dL Est GFR ( Amer) Est GFR (Non-Af Amer) POC Glucose (mg/dL) 157 H (65-110) mg/dL Random Glucose (75-110) mg/dL Lactic Acid 1.4 (0.7-2.1) mmol/L Calcium (8.6-10.4) mg/dl Phosphorus (2.5-4.5) mg/dL Magnesium (1.6-2.3) mg/dL Total Bilirubin (0.2-1.3) mg/dL AST (17-59) U/L ALT (21-72) U/L Alkaline Phosphatase (38-126) U/L Total Protein (6.3-8.3) g/dL Albumin (3.5-5.0) g/dL Globulin (2.2-3.9) gm/dL Albumin/Globulin Ratio (1.0-2.1) Arterial Blood Potassium (3.6-5.2) mmol/L Random Vancomycin ug/mL Urine Opiates Screen (NEGATIVE) Urine Methadone Screen (NEGATIVE) Ur Barbiturates Screen (NEGATIVE) Ur Phencyclidine Scrn (NEGATIVE) Ur Amphetamines Screen (NEGATIVE) U Benzodiazepines Scrn (NEGATIVE) U Oth Cocaine Metabols (NEGATIVE) U Cannabinoids Screen (NEGATIVE) 10/27/17 10/27/17 10/27/17 Range/Units 17:45 16:50 16:07 WBC (4.8-10.8) K/uL RBC (4.40-5.90) Mil/uL Hgb (12.0-18.0) g/dL Hct (35.0-51.0) % MCV (80.0-94.0) fL MCH (27.0-31.0) pg MCHC (33.0-37.0) g/dL RDW (11.5-14.5) % Plt Count (130-400) K/uL MPV (7.2-11.7) fL Neut % (Auto) (50.0-75.0) % Lymph % (Auto) (20.0-40.0) % [place] % (Auto) (0.0-10.0) % Eos % (Auto) (0.0-4.0) % Baso % (Auto) (0.0-2.0) % Neut # (Auto) (1.8-7.0) K/uL Lymph # (Auto) (1.0-4.3) K/uL [place] # (Auto) (0.0-0.8) K/uL Eos # (Auto) (0.0-0.7) K/uL Baso # (Auto) (0.0-0.2) K/uL Neutrophils % (Manual) (50-75) % Band Neutrophils % (0-2) % Lymphocytes % (Manual) (20-40) % Reactive Lymphs % (0-0) % Monocytes % (Manual) (0-10) % Metamyelocytes % (0-0) % Myelocytes % (0-0) % Promyelocytes % (0-0) % Plasma Cell % (Manual) Nucleated RBC % (0-0) % Smudge Cells Platelet Estimate (NORMAL) Large Platelets Polychromasia Hypochromasia (manual) Poikilocytosis (manual Anisocytosis (manual) Microcytosis (manual) Macrocytosis (manual) Spherocytes Target Cells Tear Drop Cells Ovalocytes Puncture Site Rba pCO2 47 H (35-45) mm/Hg pO2 63 L (80-100) mm/Hg HCO3 24.6 (21-28) mmol/L ABG pH 7.35 (7.35-7.45) ABG Total CO2 27.3 (22-28) mmol/L ABG O2 Saturation 94.7 L (95-98) % ABG Base Excess -0.2 (-2.0-3.0) mmol/L ABG Hemoglobin (11.7-17.4) g/dL ABG Carboxyhemoglobin (0.5-1.5) % POC ABG HHb (Measured) (0.0-5.0) % ABG Methemoglobin (0.0-3.0) % Jt Test Na ABG Potassium 3.3 L (3.6-5.2) mmol/L A-a O2 Difference 591.0 mm/Hg Respiratory Index 9.4 Hgb O2 Saturation (95.0-98.0) % Sodium 140.0 (132-148) mmol/l Chloride 107.0 (98-107) mmol/L Glucose 200 H (75-110) mg/dl Lactate 1.6 (0.7-2.1) mmol/L Vent Mode A/c pc Mechanical Rate 20 FiO2 100.0 % Tidal Volume 500 PEEP 5 Crit Value Called To Crit Value Called By Crit Value Read Back Blood Gas Notified Time Potassium (3.6-5.2) mmol/L Carbon Dioxide (22-30) mmol/L Anion Gap (10-20) BUN (9-20) mg/dL Creatinine (0.8-1.5) mg/dL Est GFR ( Amer) Est GFR (Non-Af Amer) POC Glucose (mg/dL) 196 H (65-110) mg/dL Random Glucose (75-110) mg/dL Lactic Acid 1.7 (0.7-2.1) mmol/L Calcium (8.6-10.4) mg/dl Phosphorus (2.5-4.5) mg/dL Magnesium (1.6-2.3) mg/dL Total Bilirubin (0.2-1.3) mg/dL AST (17-59) U/L ALT (21-72) U/L Alkaline Phosphatase (38-126) U/L Total Protein (6.3-8.3) g/dL Albumin (3.5-5.0) g/dL Globulin (2.2-3.9) gm/dL Albumin/Globulin Ratio (1.0-2.1) Arterial Blood Potassium 3.3 L (3.6-5.2) mmol/L Random Vancomycin ug/mL Urine Opiates Screen (NEGATIVE) Urine Methadone Screen (NEGATIVE) Ur Barbiturates Screen (NEGATIVE) Ur Phencyclidine Scrn (NEGATIVE) Ur Amphetamines Screen (NEGATIVE) U Benzodiazepines Scrn (NEGATIVE) U Oth Cocaine Metabols (NEGATIVE) U Cannabinoids Screen (NEGATIVE) 10/27/17 10/27/17 10/27/17 Range/Units 13:24 11:17 10:41 WBC (4.8-10.8) K/uL RBC (4.40-5.90) Mil/uL Hgb (12.0-18.0) g/dL Hct (35.0-51.0) % MCV (80.0-94.0) fL MCH (27.0-31.0) pg MCHC (33.0-37.0) g/dL RDW (11.5-14.5) % Plt Count (130-400) K/uL MPV (7.2-11.7) fL Neut % (Auto) (50.0-75.0) % Lymph % (Auto) (20.0-40.0) % [place] % (Auto) (0.0-10.0) % Eos % (Auto) (0.0-4.0) % Baso % (Auto) (0.0-2.0) % Neut # (Auto) (1.8-7.0) K/uL Lymph # (Auto) (1.0-4.3) K/uL [place] # (Auto) (0.0-0.8) K/uL Eos # (Auto) (0.0-0.7) K/uL Baso # (Auto) (0.0-0.2) K/uL Neutrophils % (Manual) (50-75) % Band Neutrophils % (0-2) % Lymphocytes % (Manual) (20-40) % Reactive Lymphs % (0-0) % Monocytes % (Manual) (0-10) % Metamyelocytes % (0-0) % Myelocytes % (0-0) % Promyelocytes % (0-0) % Plasma Cell % (Manual) Nucleated RBC % (0-0) % Smudge Cells Platelet Estimate (NORMAL) Large Platelets Polychromasia Hypochromasia (manual) Poikilocytosis (manual Anisocytosis (manual) Microcytosis (manual) Macrocytosis (manual) Spherocytes Target Cells Tear Drop Cells Ovalocytes Puncture Site pCO2 (35-45) mm/Hg pO2 (80-100) mm/Hg HCO3 (21-28) mmol/L ABG pH (7.35-7.45) ABG Total CO2 (22-28) mmol/L ABG O2 Saturation (95-98) % ABG Base Excess (-2.0-3.0) mmol/L ABG Hemoglobin (11.7-17.4) g/dL ABG Carboxyhemoglobin (0.5-1.5) % POC ABG HHb (Measured) (0.0-5.0) % ABG Methemoglobin (0.0-3.0) % Jt Test ABG Potassium (3.6-5.2) mmol/L A-a O2 Difference mm/Hg Respiratory Index Hgb O2 Saturation (95.0-98.0) % Sodium (132-148) mmol/l Chloride (98-107) mmol/L Glucose (75-110) mg/dl Lactate (0.7-2.1) mmol/L Vent Mode Mechanical Rate FiO2 % Tidal Volume PEEP Crit Value Called To Crit Value Called By Crit Value Read Back Blood Gas Notified Time Potassium (3.6-5.2) mmol/L Carbon Dioxide (22-30) mmol/L Anion Gap (10-20) BUN (9-20) mg/dL Creatinine (0.8-1.5) mg/dL Est GFR ( Amer) Est GFR (Non-Af Amer) POC Glucose (mg/dL) 188 H (65-110) mg/dL Random Glucose (75-110) mg/dL Lactic Acid 2.1 (0.7-2.1) mmol/L Calcium (8.6-10.4) mg/dl Phosphorus (2.5-4.5) mg/dL Magnesium (1.6-2.3) mg/dL Total Bilirubin (0.2-1.3) mg/dL AST (17-59) U/L ALT (21-72) U/L Alkaline Phosphatase (38-126) U/L Total Protein (6.3-8.3) g/dL Albumin (3.5-5.0) g/dL Globulin (2.2-3.9) gm/dL Albumin/Globulin Ratio (1.0-2.1) Arterial Blood Potassium (3.6-5.2) mmol/L Random Vancomycin 10.4 ug/mL Urine Opiates Screen (NEGATIVE) Urine Methadone Screen (NEGATIVE) Ur Barbiturates Screen (NEGATIVE) Ur Phencyclidine Scrn (NEGATIVE) Ur Amphetamines Screen (NEGATIVE) U Benzodiazepines Scrn (NEGATIVE) U Oth Cocaine Metabols (NEGATIVE) U Cannabinoids Screen (NEGATIVE) 10/27/17 10/27/17 Range/Units 10:41 06:48 WBC (4.8-10.8) K/uL RBC (4.40-5.90) Mil/uL Hgb (12.0-18.0) g/dL Hct (35.0-51.0) % MCV (80.0-94.0) fL MCH (27.0-31.0) pg MCHC (33.0-37.0) g/dL RDW (11.5-14.5) % Plt Count (130-400) K/uL MPV (7.2-11.7) fL Neut % (Auto) (50.0-75.0) % Lymph % (Auto) (20.0-40.0) % [place] % (Auto) (0.0-10.0) % Eos % (Auto) (0.0-4.0) % Baso % (Auto) (0.0-2.0) % Neut # (Auto) (1.8-7.0) K/uL Lymph # (Auto) (1.0-4.3) K/uL [place] # (Auto) (0.0-0.8) K/uL Eos # (Auto) (0.0-0.7) K/uL Baso # (Auto) (0.0-0.2) K/uL Neutrophils % (Manual) 25 L (50-75) % Band Neutrophils % 20 H* (0-2) % Lymphocytes % (Manual) 21 (20-40) % Reactive Lymphs % 3 H (0-0) % Monocytes % (Manual) 7 (0-10) % Metamyelocytes % 5 H (0-0) % Myelocytes % 18 H (0-0) % Promyelocytes % 1 H (0-0) % Plasma Cell % (Manual) TEST NOT PERFORMED Nucleated RBC % 0 (0-0) % Smudge Cells Present Platelet Estimate Normal (NORMAL) Large Platelets Present Polychromasia Slight Hypochromasia (manual) Poikilocytosis (manual Slight Anisocytosis (manual) Slight Microcytosis (manual) Slight Macrocytosis (manual) Slight Spherocytes Slight Target Cells Tear Drop Cells Slight Ovalocytes Slight Puncture Site pCO2 (35-45) mm/Hg pO2 (80-100) mm/Hg HCO3 (21-28) mmol/L ABG pH (7.35-7.45) ABG Total CO2 (22-28) mmol/L ABG O2 Saturation (95-98) % ABG Base Excess (-2.0-3.0) mmol/L ABG Hemoglobin (11.7-17.4) g/dL ABG Carboxyhemoglobin (0.5-1.5) % POC ABG HHb (Measured) (0.0-5.0) % ABG Methemoglobin (0.0-3.0) % Jt Test ABG Potassium (3.6-5.2) mmol/L A-a O2 Difference mm/Hg Respiratory Index Hgb O2 Saturation (95.0-98.0) % Sodium (132-148) mmol/l Chloride (98-107) mmol/L Glucose (75-110) mg/dl Lactate (0.7-2.1) mmol/L Vent Mode Mechanical Rate FiO2 % Tidal Volume PEEP Crit Value Called To Crit Value Called By Crit Value Read Back Blood Gas Notified Time Potassium (3.6-5.2) mmol/L Carbon Dioxide (22-30) mmol/L Anion Gap (10-20) BUN (9-20) mg/dL Creatinine (0.8-1.5) mg/dL Est GFR ( Amer) Est GFR (Non-Af Amer) POC Glucose (mg/dL) (65-110) mg/dL Random Glucose (75-110) mg/dL Lactic Acid (0.7-2.1) mmol/L Calcium (8.6-10.4) mg/dl Phosphorus (2.5-4.5) mg/dL Magnesium (1.6-2.3) mg/dL Total Bilirubin (0.2-1.3) mg/dL AST (17-59) U/L ALT (21-72) U/L Alkaline Phosphatase (38-126) U/L Total Protein (6.3-8.3) g/dL Albumin (3.5-5.0) g/dL Globulin (2.2-3.9) gm/dL Albumin/Globulin Ratio (1.0-2.1) Arterial Blood Potassium (3.6-5.2) mmol/L Random Vancomycin ug/mL Urine Opiates Screen Positive H (NEGATIVE) Urine Methadone Screen Negative (NEGATIVE) Ur Barbiturates Screen Negative (NEGATIVE) Ur Phencyclidine Scrn Negative (NEGATIVE) Ur Amphetamines Screen Negative (NEGATIVE) U Benzodiazepines Scrn Positive (NEGATIVE) U Oth Cocaine Metabols Negative (NEGATIVE) U Cannabinoids Screen Negative (NEGATIVE) Laboratory Results - last 24 hr 10/27/17 10/27/17 10/27/17 06:48 10:41 10:41 WBC RBC Hgb Hct MCV MCH MCHC RDW Plt Count MPV Neut % (Auto) Lymph % (Auto) [place] % (Auto) Eos % (Auto) Baso % (Auto) Neut # (Auto) Lymph # (Auto) [place] # (Auto) Eos # (Auto) Baso # (Auto) Neutrophils % (Manual) 25 L Band Neutrophils % 20 H* Lymphocytes % (Manual) 21 Reactive Lymphs % 3 H Monocytes % (Manual) 7 Metamyelocytes % 5 H Myelocytes % 18 H Promyelocytes % 1 H Plasma Cell % (Manual) TEST NOT PERFORMED Nucleated RBC % 0 Smudge Cells Present Platelet Estimate Normal Large Platelets Present Polychromasia Slight Hypochromasia (manual) Poikilocytosis (manual Slight Anisocytosis (manual) Slight Microcytosis (manual) Slight Macrocytosis (manual) Slight Spherocytes Slight Target Cells Tear Drop Cells Slight Ovalocytes Slight Puncture Site pCO2 pO2 HCO3 ABG pH ABG Total CO2 ABG O2 Saturation ABG Base Excess ABG Hemoglobin ABG Carboxyhemoglobin POC ABG HHb (Measured) ABG Methemoglobin Jt Test ABG Potassium A-a O2 Difference Respiratory Index Hgb O2 Saturation Sodium Chloride Glucose Lactate Vent Mode Mechanical Rate FiO2 Tidal Volume PEEP Crit Value Called To Crit Value Called By Crit Value Read Back Blood Gas Notified Time Potassium Carbon Dioxide Anion Gap BUN Creatinine Est GFR ( Amer) Est GFR (Non-Af Amer) POC Glucose (mg/dL) Random Glucose Lactic Acid Calcium Phosphorus Magnesium Total Bilirubin AST ALT Alkaline Phosphatase Total Protein Albumin Globulin Albumin/Globulin Ratio Arterial Blood Potassium Random Vancomycin 10.4 Urine Opiates Screen Positive H Urine Methadone Screen Negative Ur Barbiturates Screen Negative Ur Phencyclidine Scrn Negative Ur Amphetamines Screen Negative U Benzodiazepines Scrn Positive U Oth Cocaine Metabols Negative U Cannabinoids Screen Negative 10/27/17 10/27/17 10/27/17 11:17 13:24 16:07 WBC RBC Hgb Hct MCV MCH MCHC RDW Plt Count MPV Neut % (Auto) Lymph % (Auto) [place] % (Auto) Eos % (Auto) Baso % (Auto) Neut # (Auto) Lymph # (Auto) [place] # (Auto) Eos # (Auto) Baso # (Auto) Neutrophils % (Manual) Band Neutrophils % Lymphocytes % (Manual) Reactive Lymphs % Monocytes % (Manual) Metamyelocytes % Myelocytes % Promyelocytes % Plasma Cell % (Manual) Nucleated RBC % Smudge Cells Platelet Estimate Large Platelets Polychromasia Hypochromasia (manual) Poikilocytosis (manual Anisocytosis (manual) Microcytosis (manual) Macrocytosis (manual) Spherocytes Target Cells Tear Drop Cells Ovalocytes Puncture Site Rba pCO2 47 H pO2 63 L HCO3 24.6 ABG pH 7.35 ABG Total CO2 27.3 ABG O2 Saturation 94.7 L ABG Base Excess -0.2 ABG Hemoglobin ABG Carboxyhemoglobin POC ABG HHb (Measured) ABG Methemoglobin Jt Test Na ABG Potassium 3.3 L A-a O2 Difference 591.0 Respiratory Index 9.4 Hgb O2 Saturation Sodium 140.0 Chloride 107.0 Glucose 200 H Lactate 1.6 Vent Mode A/c pc Mechanical Rate 20 FiO2 100.0 Tidal Volume 500 PEEP 5 Crit Value Called To Crit Value Called By Crit Value Read Back Blood Gas Notified Time Potassium Carbon Dioxide Anion Gap BUN Creatinine Est GFR ( Amer) Est GFR (Non-Af Amer) POC Glucose (mg/dL) 188 H Random Glucose Lactic Acid 2.1 Calcium Phosphorus Magnesium Total Bilirubin AST ALT Alkaline Phosphatase Total Protein Albumin Globulin Albumin/Globulin Ratio Arterial Blood Potassium 3.3 L Random Vancomycin Urine Opiates Screen Urine Methadone Screen Ur Barbiturates Screen Ur Phencyclidine Scrn Ur Amphetamines Screen U Benzodiazepines Scrn U Oth Cocaine Metabols U Cannabinoids Screen 10/27/17 10/27/17 10/27/17 16:50 17:45 20:50 WBC RBC Hgb Hct MCV MCH MCHC RDW Plt Count MPV Neut % (Auto) Lymph % (Auto) [place] % (Auto) Eos % (Auto) Baso % (Auto) Neut # (Auto) Lymph # (Auto) [place] # (Auto) Eos # (Auto) Baso # (Auto) Neutrophils % (Manual) Band Neutrophils % Lymphocytes % (Manual) Reactive Lymphs % Monocytes % (Manual) Metamyelocytes % Myelocytes % Promyelocytes % Plasma Cell % (Manual) Nucleated RBC % Smudge Cells Platelet Estimate Large Platelets Polychromasia Hypochromasia (manual) Poikilocytosis (manual Anisocytosis (manual) Microcytosis (manual) Macrocytosis (manual) Spherocytes Target Cells Tear Drop Cells Ovalocytes Puncture Site pCO2 pO2 HCO3 ABG pH ABG Total CO2 ABG O2 Saturation ABG Base Excess ABG Hemoglobin ABG Carboxyhemoglobin POC ABG HHb (Measured) ABG Methemoglobin Jt Test ABG Potassium A-a O2 Difference Respiratory Index Hgb O2 Saturation Sodium Chloride Glucose Lactate Vent Mode Mechanical Rate FiO2 Tidal Volume PEEP Crit Value Called To Crit Value Called By Crit Value Read Back Blood Gas Notified Time Potassium Carbon Dioxide Anion Gap BUN Creatinine Est GFR ( Amer) Est GFR (Non-Af Amer) POC Glucose (mg/dL) 196 H Random Glucose Lactic Acid 1.7 1.4 Calcium Phosphorus Magnesium Total Bilirubin AST ALT Alkaline Phosphatase Total Protein Albumin Globulin Albumin/Globulin Ratio Arterial Blood Potassium Random Vancomycin Urine Opiates Screen Urine Methadone Screen Ur Barbiturates Screen Ur Phencyclidine Scrn Ur Amphetamines Screen U Benzodiazepines Scrn U Oth Cocaine Metabols U Cannabinoids Screen 10/27/17 10/28/17 10/28/17 23:47 05:23 05:45 WBC RBC Hgb Hct MCV MCH MCHC RDW Plt Count MPV Neut % (Auto) Lymph % (Auto) [place] % (Auto) Eos % (Auto) Baso % (Auto) Neut # (Auto) Lymph # (Auto) [place] # (Auto) Eos # (Auto) Baso # (Auto) Neutrophils % (Manual) Band Neutrophils % Lymphocytes % (Manual) Reactive Lymphs % Monocytes % (Manual) Metamyelocytes % Myelocytes % Promyelocytes % Plasma Cell % (Manual) Nucleated RBC % Smudge Cells Platelet Estimate Large Platelets Polychromasia Hypochromasia (manual) Poikilocytosis (manual Anisocytosis (manual) Microcytosis (manual) Macrocytosis (manual) Spherocytes Target Cells Tear Drop Cells Ovalocytes Puncture Site Rr pCO2 77 H* pO2 57 L HCO3 30.1 H ABG pH 7.27 L ABG Total CO2 37.8 H ABG O2 Saturation 91.7 L ABG Base Excess 6.8 H ABG Hemoglobin 9.3 L ABG Carboxyhemoglobin 2.3 H POC ABG HHb (Measured) 8.0 H ABG Methemoglobin 1.0 Jt Test Pos ABG Potassium A-a O2 Difference 560.0 Respiratory Index 9.8 Hgb O2 Saturation 88.7 L Sodium Chloride Glucose Lactate Vent [facility] Mechanical Rate 20 FiO2 100.0 Tidal Volume PEEP 5 Crit Value Called To Shelley rn Crit Value Called By Demetrius mechanical energy engineer Crit Value Read Back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
--- NOTE | 2017-10-28 11:18 | CP.PCM.PN ---
Subjective - Date & Time of Evaluation Date of Evaluation: 10/28/17 Time of Evaluation: 11:16 - Subjective Subjective: COVERING DR FITCH/BONI No N/V. No new c/o Alk PHos > 300. ALT/AST, Bili normal Objective - Vital Signs/Intake and Output Vital Signs (last 24 hours): Temp Pulse Resp BP Pulse Ox 97.4 F L 98 H 18 113/71 93 L 10/28/17 08:00 10/28/17 10:53 10/28/17 10:53 10/28/17 10:53 10/28/17 10:53 Intake and Output: 10/28/17 10/28/17 06:59 18:59 Intake Total 1461.2 443.6 Output Total 780 140 Balance 681.2 303.6 - Medications Medications: Current Medications Albuterol/Ipratropium (Duoneb 3 Mg/0.5 Mg (3 Ml) Ud) 3 ml INH RQ6 [facility] Last Admin: 10/28/17 07:28 Dose: 3 ml Ascorbic Acid (Vitamin C 500 Mg Tab) 500 mg PO DAILY [facility] Dexamethasone (Decadron Inj) 4 mg IVP DAILY [facility] Last Admin: 10/28/17 10:50 Dose: 4 mg Donepezil HCl (Aricept) 10 mg PO HS [facility] Last Admin: 10/27/17 21:24 Dose: 10 mg Famotidine (Pepcid) 20 mg PO DAILY [facility] Last Admin: 10/28/17 10:50 Dose: 20 mg Folic Acid (Folic Acid) 1 mg PO DAILY [facility] Metronidazole (Flagyl) 500 mg in 100 mls @ 100 mls/hr IVPB Q8H [facility] PRN Reason: Protocol Last Admin: 10/28/17 05:26 Dose: 100 mls/hr Aztreonam 2 gm/ Sodium (Chloride) 100 mls @ 200 mls/hr IVPB Q8H [facility] PRN Reason: Protocol Last Admin: 10/28/17 06:45 Dose: 200 mls/hr Vancomycin/Sodium Chloride (Vancomycin 1 Gm/Ns 200 Ml) 1 gm in 200 mls @ 133 mls/hr IVPB Q12H [facility] PRN Reason: Protocol Stop: 11/01/17 00:31 Last Admin: 10/27/17 23:58 Dose: 133 mls/hr Norepinephrine Bitartrate 4 mg (/ Dextrose) 254 mls @ 15.24 mls/hr IV .[id number] PRN; Protocol; 4 MCG/MIN PRN Reason: TITRATE PER MD ORDER Last Admin: 10/28/17 10:53 Dose: 4 mcg/min, 15.24 mls/hr Fentanyl Citrate 2,500 mcg/ (Sodium Chloride) 250 mls @ 19.05 mls/hr IV .Q13H8M [facility]; 2 MCG/KG/HR PRN Reason: Protocol Last Admin: 10/28/17 05:00 Dose: 4 mcg/kg/hr, 38.1 mls/hr Insulin Human Regular (Novolin R) 0 unit SC Q6H [facility] PRN Reason: Protocol Last Admin: 10/28/17 06:00 Dose: Not Given Lactulose (Enulose) 20 gm NG Q8H PRN PRN Reason: Constipation Moxifloxacin HCl (Avelox) 400 mg NG DAILY [facility] PRN Reason: Protocol Stop: 10/31/17 10:01 Multivitamins/Vitamin C (Multi-Delyn Liquid) 5 ml PO DAILY [facility] Ondansetron HCl (Zofran Inj) 4 mg IVP Q6 PRN PRN Reason: Nausea/Vomiting Potassium Chloride (Potassium Chloride Oral Soln) 40 meq PO Q8 [facility] Stop: 10/28/17 22:01 Vitamin A (Vitamin A&D) 0 applic TP Q8 PRN PRN Reason: Dry skin Last Admin: 10/27/17 17:02 Dose: 1 applic Zinc Sulfate (Zinc Sulfate 220 Mg Cap) 220 mg PO DAILY [facility] - Labs Labs: 10/28/17 06:41 10/28/17 06:35 - Constitutional Appears: No Acute Distress - Head Exam Additional comments: Intubated with NGT (no blood or emesis) - Respiratory Exam Respiratory Exam: Decreased Breath Sounds - Cardiovascular Exam Cardiovascular Exam: Tachycardia - GI/Abdominal Exam GI & Abdominal Exam: Distended, Soft, Hypoactive Bowel Sounds. absent: Tenderness, Rebound - Extremities Exam Extremities Exam: Pedal Edema Assessment and Plan (1) Gastric outlet obstruction Assessment & Plan: No N/V currently. Consider advance NGT feeding trials Status: Acute (2) Liver metastases Assessment & Plan: Mild increase in Alk PHos noted. Prognosis poor. Oncology follow up. Status: Acute
[2017-10-28] MEDS: Multiple Vitamins Oral Solution PO SCH (11:28)
--- NOTE | 2017-10-28 11:55 | CP.PCM.PN ---
Subjective - Date & Time of Evaluation Date of Evaluation: 10/28/17 Time of Evaluation: 11:00 - Subjective Subjective: Seen and examined by me. patient is on Fantanyl drip ,sedated. Open eyes and trying to follow commands On Levophed and his blood pressure better than yesterday,saturating low 90ies. No fever,started on NG feeding Objective - Vital Signs/Intake and Output Vital Signs (last 24 hours): Temp Pulse Resp BP Pulse Ox 97.4 F L 98 H 18 113/71 93 L 10/28/17 08:00 10/28/17 10:53 10/28/17 10:53 10/28/17 10:53 10/28/17 10:53 Intake and Output: 10/28/17 10/28/17 06:59 18:59 Intake Total 1461.2 443.6 Output Total 780 140 Balance 681.2 303.6 - Medications Medications: Current Medications Albuterol/Ipratropium (Duoneb 3 Mg/0.5 Mg (3 Ml) Ud) 3 ml INH RQ6 [facility] Last Admin: 10/28/17 07:28 Dose: 3 ml Ascorbic Acid (Vitamin C 500 Mg Tab) 500 mg PO DAILY [facility] Last Admin: 10/28/17 11:28 Dose: 500 mg Dexamethasone (Decadron Inj) 4 mg IVP DAILY [facility] Last Admin: 10/28/17 10:50 Dose: 4 mg Donepezil HCl (Aricept) 10 mg PO HS [facility] Last Admin: 10/27/17 21:24 Dose: 10 mg Famotidine (Pepcid) 20 mg PO DAILY [facility] Last Admin: 10/28/17 10:50 Dose: 20 mg Folic Acid (Folic Acid) 1 mg PO DAILY [facility] Last Admin: 10/28/17 11:28 Dose: 1 mg Metronidazole (Flagyl) 500 mg in 100 mls @ 100 mls/hr IVPB Q8H [facility] PRN Reason: Protocol Last Admin: 10/28/17 05:26 Dose: 100 mls/hr Aztreonam 2 gm/ Sodium (Chloride) 100 mls @ 200 mls/hr IVPB Q8H [facility] PRN Reason: Protocol Last Admin: 10/28/17 06:45 Dose: 200 mls/hr Vancomycin/Sodium Chloride (Vancomycin 1 Gm/Ns 200 Ml) 1 gm in 200 mls @ 133 mls/hr IVPB Q12H [facility] PRN Reason: Protocol Stop: 11/01/17 00:31 Last Admin: 10/27/17 23:58 Dose: 133 mls/hr Norepinephrine Bitartrate 4 mg (/ Dextrose) 254 mls @ 15.24 mls/hr IV .[id number] PRN; Protocol; 4 MCG/MIN PRN Reason: TITRATE PER MD ORDER Last Admin: 10/28/17 10:53 Dose: 4 mcg/min, 15.24 mls/hr Fentanyl Citrate 2,500 mcg/ (Sodium Chloride) 250 mls @ 19.05 mls/hr IV .Q13H8M [facility]; 2 MCG/KG/HR PRN Reason: Protocol Last Admin: 10/28/17 05:00 Dose: 4 mcg/kg/hr, 38.1 mls/hr Insulin Human Regular (Novolin R) 0 unit SC Q6H [facility] PRN Reason: Protocol Last Admin: 10/28/17 11:28 Dose: Not Given Lactulose (Enulose) 20 gm NG Q8H PRN PRN Reason: Constipation Moxifloxacin HCl (Avelox) 400 mg NG DAILY [facility] PRN Reason: Protocol Stop: 10/31/17 10:01 Last Admin: 10/28/17 10:45 Dose: 400 mg Multivitamins/Vitamin C (Multi-Delyn Liquid) 5 ml PO DAILY [facility] Last Admin: 10/28/17 11:28 Dose: 5 ml Ondansetron HCl (Zofran Inj) 4 mg IVP Q6 PRN PRN Reason: Nausea/Vomiting Potassium Chloride (Potassium Chloride Oral Soln) 40 meq PO Q8 [facility] Stop: 10/28/17 22:01 Vitamin A (Vitamin A&D) 0 applic TP Q8 PRN PRN Reason: Dry skin Last Admin: 10/27/17 17:02 Dose: 1 applic Zinc Sulfate (Zinc Sulfate 220 Mg Cap) 220 mg PO DAILY [facility] Last Admin: 10/28/17 11:28 Dose: 220 mg - Labs Labs: 10/28/17 06:41 10/28/17 06:35 - Constitutional Appears: No Acute Distress, Chronically Ill - Head Exam Head Exam: absent: ATRAUMATIC - ENT Exam ENT Exam: Mucous Membranes Moist - Neck Exam Neck Exam: Full ROM - Respiratory Exam Respiratory Exam: Decreased Breath Sounds - Cardiovascular Exam Cardiovascular Exam: REGULAR RHYTHM - GI/Abdominal Exam GI & Abdominal Exam: Distended, Soft, Normal Bowel Sounds - Extremities Exam Extremities Exam: Full ROM - Back Exam Back Exam: NORMAL INSPECTION - Neurological Exam Neurological Exam: absent: Awake (sedated) - Psychiatric Exam Psychiatric exam: Flat Affect - Skin Skin Exam: Dry Assessment and Plan - Assessment and Plan (Free Text) Plan: 1. Acute Respiratory failure on Ventilator Possible aspiration/ARDS/sepsis/rule out OR Metastatic lung cancer/small cell stage 4 Today's chest x ray with ARDS/Pulmonary edema,multi focal pneumonia/pleural effusion Continue Azactum, flagyl, Vancomycin and Moxifloxacillin Lambert cultures done,No growth identified vent management as per oncology technician 2.Sepsis/Immunocompromised state secondary to chemo Leukocytosis 21.3,bands 22. lactic acid improving Fluids and Levophed continue antibiotics as above and follow cultures. 3. 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 Acute Pancreatitis (likely from metastatic spread), Improved 6. Neutropenia-resolved Secondary to chemotherapy 7.Tobacco use 8. History of Alzheimer's 9. History of Anxiety Prognosis -poor Discussed with his Daughter Shellie (Her phone number [phone] )surrogate decision maker at bedside yesterday . She understands his condition and poor prognosis. He wanted MV support trial for few days.Full code at this time.
[2017-10-28 12:01] LABS: ABG ALLEN TEST PO; ARTERIAL BLOOD GAS HCO3 22.5 mmol/L (21-28); ARTERIAL BLOOD GAS O2 SAT 96.9 % (95-98); ARTERIAL BLOOD GAS PCO2 75 mm/Hg (35-45); ARTERIAL BLOOD GAS PH 7.17 (7.35-7.45); ARTERIAL BLOOD GAS PO2 85 mm/Hg (80-100); ARTERIAL BLOOD GAS TCO2 29.7 mmol/L (22-28)
[2017-10-28] MEDS: Vancomycin 1 gm/NS 200 ml 1 GM/200 ML BAG IVPB SCH ×2 (13:30→23:45)
[2017-10-28] MEDS: Potassium Chloride 20 mEq/15 ml LIQ UD PO SCH ×2 (13:53→21:09)
[2017-10-28 16:39] LABS: ARTERIAL BLOOD GAS HCO3 27.6 mmol/L (21-28); ARTERIAL BLOOD GAS O2 SAT 99.4 % (95-98); ARTERIAL BLOOD GAS PCO2 73 mm/Hg (35-45); ARTERIAL BLOOD GAS PH 7.26 (7.35-7.45); ARTERIAL BLOOD GAS PO2 126 mm/Hg (80-100)
--- NOTE | 2017-10-28 17:54 | RAD ---
PROCEDURE: CHEST RADIOGRAPH, 1 VIEW HISTORY: ARDS COMPARISON: 10/28/2017 at 7:25 a.m. FINDINGS: The endotracheal tube terminates in the mid trachea. The nasogastric tube terminates in the stomach. The right MediPort terminates in the SVC. LUNGS: There is interval mild improved aeration in the lungs with persistent diffuse haziness and confluent airspace disease in the lower lobes. PLEURA: No pneumothorax. Interval mild improvement in bilateral pleural effusions. CARDIOVASCULAR: Normal. OSSEOUS STRUCTURES: Stable with right shoulder arthroplasty. VISUALIZED UPPER ABDOMEN: Normal. OTHER FINDINGS: None. IMPRESSION: Improving presumable pulmonary edema and pleural effusions. Stable position of support line and tubes.
[2017-10-28] MEDS ORDERED: Rocuronium 10 mg/ml (5 ml) IV ONE (18:36)
[2017-10-28] MEDS ORDERED: Propofol 10 mg/ml 1,000 MG/100 ML VIAL IV PRN (18:37)
[2017-10-28] MEDS: (Novolog) Insulin Aspart, Recombinant 100 u/ml 10 ml vial SC SCH (18:50)
[2017-10-28] MEDS: Midazolam 50 mg/10 ml 100 MG in Dextrose 5% In Water 80 ML IV SCH (19:39)
--- NOTE | 2017-10-28 22:02 | CP.PCM.PN ---
Subjective - Date & Time of Evaluation Date of Evaluation: 10/26/17 Time of Evaluation: 12:15 - Subjective Subjective: Feeling better, less abdominal pain. Objective - Vital Signs/Intake and Output Vital Signs (last 24 hours): Temp Pulse Resp BP Pulse Ox 97.4 F L 112 H 24 110/68 92 L 10/28/17 16:00 10/28/17 19:34 10/28/17 19:34 10/28/17 19:34 10/28/17 19:34 Intake and Output: 10/28/17 10/29/17 18:59 06:59 Intake Total 2141.4 142.2 Output Total 700 50 Balance 1441.4 92.2 - Medications Medications: Current Medications Albuterol/Ipratropium (Duoneb 3 Mg/0.5 Mg (3 Ml) Ud) 3 ml INH RQ6 [facility] Last Admin: 10/28/17 19:17 Dose: 3 ml Ascorbic Acid (Vitamin C 500 Mg Tab) 500 mg PO DAILY [facility] Last Admin: 10/28/17 11:28 Dose: 500 mg Donepezil HCl (Aricept) 10 mg PO HS [facility] Last Admin: 10/28/17 21:09 Dose: 10 mg Famotidine (Pepcid) 20 mg PO DAILY [facility] Last Admin: 10/28/17 10:50 Dose: 20 mg Folic Acid (Folic Acid) 1 mg PO DAILY [facility] Last Admin: 10/28/17 11:28 Dose: 1 mg Hydrocortisone Sodium Succinate (Solu-Cortef) 50 mg IV Q6H [facility] Last Admin: 10/28/17 19:02 Dose: Not Given Metronidazole (Flagyl) 500 mg in 100 mls @ 100 mls/hr IVPB Q8H [facility] PRN Reason: Protocol Last Admin: 10/28/17 13:53 Dose: 100 mls/hr Aztreonam 2 gm/ Sodium (Chloride) 100 mls @ 200 mls/hr IVPB Q8H [facility] PRN Reason: Protocol Last Admin: 10/28/17 15:26 Dose: 200 mls/hr Vancomycin/Sodium Chloride (Vancomycin 1 Gm/Ns 200 Ml) 1 gm in 200 mls @ 133 mls/hr IVPB Q12H [facility] PRN Reason: Protocol Stop: 11/01/17 00:31 Last Admin: 10/28/17 13:30 Dose: 133 mls/hr Norepinephrine Bitartrate 4 mg (/ Dextrose) 254 mls @ 15.24 mls/hr IV .[id number] PRN; Protocol; 4 MCG/MIN PRN Reason: TITRATE PER MD ORDER Last Titration: 10/28/17 19:20 Dose: 2 mcg/min, 7.62 mls/hr Midazolam HCl 100 mg/ Dextrose 100 mls @ 1.9 mls/hr IV .Q24H [facility]; 0.02 MG/KG/HR PRN Reason: Protocol Last Admin: 10/28/17 19:39 Dose: 0.02 mg/kg/hr, 1.9 mls/hr Fentanyl Citrate 2,500 mcg/ (Sodium Chloride) 250 mls @ 19.05 mls/hr IV .Q13H8M PRN; 2 MCG/KG/HR PRN Reason: Protocol Last Admin: 10/28/17 20:28 Dose: 2 mcg/kg/hr, 19.05 mls/hr Insulin Aspart (Novolog) 0 unit SC Q6H [facility] PRN Reason: Protocol Last Admin: 10/28/17 18:50 Dose: Not Given Lactulose (Enulose) 20 gm NG Q8H PRN PRN Reason: Constipation Moxifloxacin HCl (Avelox) 400 mg NG DAILY [facility] PRN Reason: Protocol Stop: 10/31/17 10:01 Last Admin: 10/28/17 10:45 Dose: 400 mg Multivitamins/Vitamin C (Multi-Delyn Liquid) 5 ml PO DAILY [facility] Last Admin: 10/28/17 11:28 Dose: 5 ml Ondansetron HCl (Zofran Inj) 4 mg IVP Q6 PRN PRN Reason: Nausea/Vomiting Potassium Chloride (Potassium Chloride Oral Soln) 40 meq PO Q8 [facility] Stop: 10/28/17 22:01 Last Admin: 10/28/17 21:09 Dose: 40 meq Vitamin A (Vitamin A&D) 0 applic TP Q8 PRN PRN Reason: Dry skin Last Admin: 10/27/17 17:02 Dose: 1 applic Zinc Sulfate (Zinc Sulfate 220 Mg Cap) 220 mg PO DAILY [facility] Last Admin: 10/28/17 11:28 Dose: 220 mg - Labs Labs: 10/28/17 06:41 10/28/17 06:35 - Head Exam Head Exam: ATRAUMATIC - Eye Exam Eye Exam: Normal appearance - ENT Exam ENT Exam: Mucous Membranes Dry - Respiratory Exam Respiratory Exam: NORMAL BREATHING PATTERN - Cardiovascular Exam Cardiovascular Exam: +S1, +S2 - GI/Abdominal Exam GI & Abdominal Exam: Normal Bowel Sounds Assessment and Plan (1) Anemia Assessment & Plan: chemotherapy and chronic disease from malignancy Status: Acute (2) Pancreatitis Assessment & Plan: pancreatic metastasis, tumor necrosis causing inflammation Status: Acute (3) 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
--- NOTE | 2017-10-28 22:07 | CP.PCM.PN ---
Subjective - Date & Time of Evaluation Date of Evaluation: 10/27/17 Time of Evaluation: 15:00 - Subjective Subjective: Events noted, vented, family at bedside. Objective - Vital Signs/Intake and Output Vital Signs (last 24 hours): Temp Pulse Resp BP Pulse Ox 97.4 F L 112 H 24 110/68 92 L 10/28/17 16:00 10/28/17 19:34 10/28/17 19:34 10/28/17 19:34 10/28/17 19:34 Intake and Output: 10/28/17 10/29/17 18:59 06:59 Intake Total 2141.4 142.2 Output Total 700 50 Balance 1441.4 92.2 - Medications Medications: Current Medications Albuterol/Ipratropium (Duoneb 3 Mg/0.5 Mg (3 Ml) Ud) 3 ml INH RQ6 [facility] Last Admin: 10/28/17 19:17 Dose: 3 ml Ascorbic Acid (Vitamin C 500 Mg Tab) 500 mg PO DAILY [facility] Last Admin: 10/28/17 11:28 Dose: 500 mg Donepezil HCl (Aricept) 10 mg PO HS [facility] Last Admin: 10/28/17 21:09 Dose: 10 mg Famotidine (Pepcid) 20 mg PO DAILY [facility] Last Admin: 10/28/17 10:50 Dose: 20 mg Folic Acid (Folic Acid) 1 mg PO DAILY [facility] Last Admin: 10/28/17 11:28 Dose: 1 mg Hydrocortisone Sodium Succinate (Solu-Cortef) 50 mg IV Q6H [facility] Last Admin: 10/28/17 19:02 Dose: Not Given Metronidazole (Flagyl) 500 mg in 100 mls @ 100 mls/hr IVPB Q8H [facility] PRN Reason: Protocol Last Admin: 10/28/17 13:53 Dose: 100 mls/hr Aztreonam 2 gm/ Sodium (Chloride) 100 mls @ 200 mls/hr IVPB Q8H [facility] PRN Reason: Protocol Last Admin: 10/28/17 15:26 Dose: 200 mls/hr Vancomycin/Sodium Chloride (Vancomycin 1 Gm/Ns 200 Ml) 1 gm in 200 mls @ 133 mls/hr IVPB Q12H [facility] PRN Reason: Protocol Stop: 11/01/17 00:31 Last Admin: 10/28/17 13:30 Dose: 133 mls/hr Norepinephrine Bitartrate 4 mg (/ Dextrose) 254 mls @ 15.24 mls/hr IV .[id number] PRN; Protocol; 4 MCG/MIN PRN Reason: TITRATE PER MD ORDER Last Titration: 10/28/17 19:20 Dose: 2 mcg/min, 7.62 mls/hr Midazolam HCl 100 mg/ Dextrose 100 mls @ 1.9 mls/hr IV .Q24H [facility]; 0.02 MG/KG/HR PRN Reason: Protocol Last Admin: 10/28/17 19:39 Dose: 0.02 mg/kg/hr, 1.9 mls/hr Fentanyl Citrate 2,500 mcg/ (Sodium Chloride) 250 mls @ 19.05 mls/hr IV .Q13H8M PRN; 2 MCG/KG/HR PRN Reason: Protocol Last Admin: 10/28/17 20:28 Dose: 2 mcg/kg/hr, 19.05 mls/hr Insulin Aspart (Novolog) 0 unit SC Q6H [facility] PRN Reason: Protocol Last Admin: 10/28/17 18:50 Dose: Not Given Lactulose (Enulose) 20 gm NG Q8H PRN PRN Reason: Constipation Moxifloxacin HCl (Avelox) 400 mg NG DAILY [facility] PRN Reason: Protocol Stop: 10/31/17 10:01 Last Admin: 10/28/17 10:45 Dose: 400 mg Multivitamins/Vitamin C (Multi-Delyn Liquid) 5 ml PO DAILY [facility] Last Admin: 10/28/17 11:28 Dose: 5 ml Ondansetron HCl (Zofran Inj) 4 mg IVP Q6 PRN PRN Reason: Nausea/Vomiting Vitamin A (Vitamin A&D) 0 applic TP Q8 PRN PRN Reason: Dry skin Last Admin: 10/27/17 17:02 Dose: 1 applic Zinc Sulfate (Zinc Sulfate 220 Mg Cap) 220 mg PO DAILY [facility] Last Admin: 10/28/17 11:28 Dose: 220 mg - Labs Labs: 10/28/17 06:41 10/28/17 06:35 - Head Exam Head Exam: ATRAUMATIC - Eye Exam Eye Exam: Normal appearance - ENT Exam ENT Exam: Mucous Membranes Dry - Respiratory Exam Respiratory Exam: NORMAL BREATHING PATTERN - Cardiovascular Exam Cardiovascular Exam: +S1, +S2 - GI/Abdominal Exam GI & Abdominal Exam: Normal Bowel Sounds Assessment and Plan (1) Leukocytosis Assessment & Plan: s/p growth factor support on antibiotics Status: Acute (2) Anemia Assessment & Plan: chronic disease from malignancy, recent chemotherapy Status: Acute (3) Pancreatitis Assessment & Plan: pancreatic metastasis, tumor necrosis causing inflammation Status: Acute (4) 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
--- NOTE | 2017-10-28 22:09 | CP.PCM.PN ---
Subjective - Date & Time of Evaluation Date of Evaluation: 10/28/17 Time of Evaluation: 19:00 - Subjective Subjective: on tube feeds, opens eyes Objective - Vital Signs/Intake and Output Vital Signs (last 24 hours): Temp Pulse Resp BP Pulse Ox 97.4 F L 112 H 24 110/68 92 L 10/28/17 16:00 10/28/17 19:34 10/28/17 19:34 10/28/17 19:34 10/28/17 19:34 Intake and Output: 10/28/17 10/29/17 18:59 06:59 Intake Total 2141.4 142.2 Output Total 700 50 Balance 1441.4 92.2 - Medications Medications: Current Medications Albuterol/Ipratropium (Duoneb 3 Mg/0.5 Mg (3 Ml) Ud) 3 ml INH RQ6 [facility] Last Admin: 10/28/17 19:17 Dose: 3 ml Ascorbic Acid (Vitamin C 500 Mg Tab) 500 mg PO DAILY [facility] Last Admin: 10/28/17 11:28 Dose: 500 mg Donepezil HCl (Aricept) 10 mg PO HS [facility] Last Admin: 10/28/17 21:09 Dose: 10 mg Famotidine (Pepcid) 20 mg PO DAILY [facility] Last Admin: 10/28/17 10:50 Dose: 20 mg Folic Acid (Folic Acid) 1 mg PO DAILY [facility] Last Admin: 10/28/17 11:28 Dose: 1 mg Hydrocortisone Sodium Succinate (Solu-Cortef) 50 mg IV Q6H [facility] Last Admin: 10/28/17 19:02 Dose: Not Given Metronidazole (Flagyl) 500 mg in 100 mls @ 100 mls/hr IVPB Q8H [facility] PRN Reason: Protocol Last Admin: 10/28/17 21:00 Dose: 100 mls/hr Aztreonam 2 gm/ Sodium (Chloride) 100 mls @ 200 mls/hr IVPB Q8H [facility] PRN Reason: Protocol Last Admin: 10/28/17 15:26 Dose: 200 mls/hr Vancomycin/Sodium Chloride (Vancomycin 1 Gm/Ns 200 Ml) 1 gm in 200 mls @ 133 mls/hr IVPB Q12H [facility] PRN Reason: Protocol Stop: 11/01/17 00:31 Last Admin: 10/28/17 13:30 Dose: 133 mls/hr Norepinephrine Bitartrate 4 mg (/ Dextrose) 254 mls @ 15.24 mls/hr IV .[id number] PRN; Protocol; 4 MCG/MIN PRN Reason: TITRATE PER MD ORDER Last Titration: 10/28/17 19:20 Dose: 2 mcg/min, 7.62 mls/hr Midazolam HCl 100 mg/ Dextrose 100 mls @ 1.9 mls/hr IV .Q24H LISA; 0.02 MG/KG/HR PRN Reason: Protocol Last Admin: 10/28/17 19:39 Dose: 0.02 mg/kg/hr, 1.9 mls/hr Fentanyl Citrate 2,500 mcg/ (Sodium Chloride) 250 mls @ 19.05 mls/hr IV .Q13H8M PRN; 2 MCG/KG/HR PRN Reason: Protocol Last Admin: 10/28/17 20:28 Dose: 2 mcg/kg/hr, 19.05 mls/hr Insulin Aspart (Novolog) 0 unit SC Q6H LISA PRN Reason: Protocol Last Admin: 10/28/17 18:50 Dose: Not Given Lactulose (Enulose) 20 gm NG Q8H PRN PRN Reason: Constipation Moxifloxacin HCl (Avelox) 400 mg NG DAILY [facility] PRN Reason: Protocol Stop: 10/31/17 10:01 Last Admin: 10/28/17 10:45 Dose: 400 mg Multivitamins/Vitamin C (Multi-Delyn Liquid) 5 ml PO DAILY [facility] Last Admin: 10/28/17 11:28 Dose: 5 ml Ondansetron HCl (Zofran Inj) 4 mg IVP Q6 PRN PRN Reason: Nausea/Vomiting Vitamin A (Vitamin A&D) 0 applic TP Q8 PRN PRN Reason: Dry skin Last Admin: 10/27/17 17:02 Dose: 1 applic Zinc Sulfate (Zinc Sulfate 220 Mg Cap) 220 mg PO DAILY [facility] Last Admin: 10/28/17 11:28 Dose: 220 mg - Labs Labs: 10/28/17 06:41 10/28/17 06:35 - Head Exam Head Exam: ATRAUMATIC - Eye Exam Eye Exam: Normal appearance - ENT Exam ENT Exam: Mucous Membranes Dry - Respiratory Exam Respiratory Exam: NORMAL BREATHING PATTERN - Cardiovascular Exam Cardiovascular Exam: +S1, +S2 - GI/Abdominal Exam GI & Abdominal Exam: Normal Bowel Sounds Assessment and Plan (1) Leukocytosis Assessment & Plan: s/p growth factor support on antibiotics Status: Acute (2) Thrombocytopenia Assessment & Plan: likely secondary to chemotherapy check fibrinogen to rule out DIC Status: Acute (3) Anemia Assessment & Plan: chronic disease, recent chemotherapy Status: Acute (4) Pancreatitis Assessment & Plan: pancreatic metastasis, tumor necrosis causing inflammation Status: Acute (5) 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
[2017-10-29] MEDS: (Novolog) Insulin Aspart, Recombinant 100 u/ml 10 ml vial SC SCH ×4 (00:30→18:24)
[2017-10-29] MEDS: Albuterol-Ipratrop 3 mg / 0.5 (3 ml) UD INH SCH ×4 (01:04→19:57)
[2017-10-29] MEDS: metroNIDAZOLE IV 500 mg/100 ml 500 MG/100 ML BAG IVPB SCH ×3 (05:00→21:08)
[2017-10-29 05:33] LABS: ABG ALLEN TEST POS; ARTERIAL BLOOD GAS HCO3 29.9 mmol/L (21-28); ARTERIAL BLOOD GAS HEMOGLOBIN 9.1 g/dL (11.7-17.4); ARTERIAL BLOOD GAS O2 SAT 99.1 % (95-98); ARTERIAL BLOOD GAS PCO2 78 mm/Hg (35-45); ARTERIAL BLOOD GAS PH 7.26 (7.35-7.45); ARTERIAL BLOOD GAS PO2 130 mm/Hg (80-100); ARTERIAL BLOOD GAS TCO2 37.4 mmol/L (22-28)
[2017-10-29] MEDS: Aztreonam 2 GM in Sodium Chloride 0.9% 100 ML IVPB SCH ×3 (06:00→21:59)
[2017-10-29 06:41] LABS: BASO # 0.1 K/uL (0.0-0.2); BASO % 0.3 % (0.0-2.0); HEMOGLOBIN 8.7 g/dL (12.0-18.0); LYMPH % 5.7 % (20.0-40.0); MEAN CELL VOLUME 82.5 fL (80.0-94.0); MEAN CORPUSCULAR HEMOGLOBIN 27.6 pg (27.0-31.0); MEAN CORPUSCULAR HGB CONC 33.4 g/dL (33.0-37.0); MEAN PLATELET VOLUME 10.6 fL (7.2-11.7); MONO # 0.5 K/uL (0.0-0.8); MONO % 2.6 % (0.0-10.0); NEUT % 91.4 % (50.0-75.0); PLATELET COUNT 74 K/uL (130-400); RBC 3.18 Mil/uL (4.40-5.90); RED CELL DISTRIBUTION WIDTH 20.7 % (11.5-14.5); WHITE BLOOD COUNT 17.5 K/uL (4.8-10.8)
[2017-10-29 06:52] LABS: ALB/GLOB RATIO 0.8 (1.0-2.1); ALBUMIN 2.5 g/dL (3.5-5.0); ALT/SGPT 45 U/L (21-72); AST/SGOT 43 U/L (17-59); BLOOD UREA NITROGEN 27 mg/dL (9-20); CALCIUM 7.7 mg/dl (8.6-10.4); GFR AFRICAN-AMERICAN > 60; GFR NON-AFRICAN AMERICAN > 60
--- NOTE | 2017-10-29 08:37 | CP.CCUPN ---
<Becka Ta - Last Filed: 10/29/17 12:57> CCU Subjective - Physician Review Subjective (Free Text): Patient seen and examined at bedside. Patient is intubated and sedated on fentanyl and versed. CCU Objective - Vital Signs / Intake & Output Vital Signs (Last 4 hours): Vital Signs Pulse Resp BP Pulse Ox 10/29/17 07:12 129 H 35 H 109/73 10/29/17 07:00 117 H 34 H 81 L 10/29/17 06:11 107 H 9 L 108/62 95 10/29/17 06:00 109 H 9 L 93 L 10/29/17 05:11 108 H 24 108/65 97 10/29/17 05:00 109 H 24 97 Intake and Output (Last 8hrs): Intake & Output 10/28/17 10/29/17 10/29/17 22:59 06:59 14:59 Intake Total 1030.0 690.6 81.2 Output Total 740 930 100 Balance 290.0 -239.4 -18.8 Intake: IV 326 400 33 Intake, IV Amount 629.0 290.6 48.2 Right Medial Port Femoral 97.5 60.0 7.5 Right Port-A-Cath 324.6 210.6 38.2 Right Proximal Port 6.9 20.0 2.5 Femoral Right Wrist 200 Oral 20 Tube Feeding 55 Output: Urine 740 930 100 Urethral (Clay) 740 930 100 Stool 0 0 Other: # Bowel Movements 0 0 - Physical Exam Head: Positive for: Atraumatic, Normocephalic Pupils: Positive for: PERRL Extroacular Muscles: Positive for: EOMI Conjunctiva: Positive for: Normal Mouth: Positive for: Dry, Other (INTUBATED) Nose (External): Positive for: Other (NGT in place) Respiratory/Chest: Positive for: Decreased Breath Sounds Cardiovascular: Positive for: Tachycardic Abdomen: Positive for: Normal Bowel Sounds. Negative for: Tenderness, Distention Upper Extremity: Positive for: Normal Inspection, NORMAL PULSES, Neurovascularly Intact, Capillary Refill < 2s Lower Extremity: Positive for: Normal Inspection, NORMAL PULSES, Neurovascularly Intact, Capillary Refill < 2 s Skin: Positive for: Warm, Dry, Normal Color Psychiatric: Positive for: Alert - Medications Active Medications: Active Medications Generic Name Dose Route Start Last Admin Trade Name Freq PRN Reason Stop Dose Admin Albuterol/Ipratropium 3 ml 10/26/17 20:00 10/29/17 08:12 Duoneb 3 Mg/0.5 Mg (3 Ml) Ud INH 3 ml RQ6 LISA Administration Ascorbic Acid 500 mg 10/28/17 11:00 10/28/17 11:28 Vitamin C 500 Mg Tab PO 500 mg DAILY LISA Administration Donepezil HCl 10 mg 10/20/17 22:00 10/28/17 21:09 Aricept PO 10 mg HS LISA Administration Famotidine 20 mg 10/22/17 10:00 10/28/17 10:50 Pepcid PO 20 mg DAILY LISA Administration Folic Acid 1 mg 10/28/17 11:00 10/28/17 11:28 Folic Acid PO 1 mg DAILY LISA Administration Hydrocortisone Sodium Succinate 50 mg 10/28/17 18:30 10/29/17 06:00 Solu-Cortef IV 50 mg Q6H LISA Administration Metronidazole 500 mg in 100 mls @ 100 mls/hr 10/20/17 22:00 10/29/17 05:00 Flagyl IVPB 100 mls/hr Q8H LISA Administration Protocol Aztreonam 2 gm/ Sodium 100 mls @ 200 mls/hr 10/20/17 22:30 10/29/17 06:00 Chloride IVPB 200 mls/hr Q8H LISA Administration Protocol Vancomycin/Sodium Chloride 1 gm in 200 mls @ 133 mls/hr 10/27/17 00:30 23:45 Vancomycin 1 Gm/Ns 200 Ml IVPB 11/01/17 00:31 133 mls/hr Q12H LISA Administration Protocol Norepinephrine Bitartrate 4 mg 254 mls @ 15.24 mls/hr 10/27/17 08:30 19:20 / Dextrose IV 2 mcg/min .[id number] PRN 7.62 mls/hr TITRATE PER MD ORDER Titration Protocol 4 MCG/MIN Midazolam HCl 100 mg/ Dextrose 100 mls @ 1.9 mls/hr 10/28/17 18:45 10/29/17 08:04 IV 0.03 mg/kg/hr .Q24H LISA 3.5 mls/hr Protocol Titration 0.02 MG/KG/HR Fentanyl Citrate 2,500 mcg/ 250 mls @ 19.05 mls/hr 10/28/17 20:30 10/29/17 08 :00 Sodium Chloride IV 10 mcg/kg/hr .[id number] PRN 95.25 mls/hr Protocol Titration 2 MCG/KG/HR Insulin Aspart 0 unit 10/28/17 18:30 10/29/17 06:41 Novolog SC Not Given Q6H LISA Protocol Lactulose 20 gm 10/28/17 10:57 Enulose NG Q8H PRN Constipation Moxifloxacin HCl 400 mg 10/28/17 10:45 10/28/17 10:45 Avelox NG 10/31/17 10:01 400 mg DAILY LISA Administration Protocol Multivitamins/Vitamin C 5 ml 10/28/17 11:00 10/28/17 11:28 Multi-Delyn Liquid PO 5 ml DAILY LISA Administration Ondansetron HCl 4 mg 10/20/17 18:06 Zofran Inj IVP Q6 PRN Nausea/Vomiting Vitamin A 0 applic 10/27/17 12:09 10/27/17 17:02 Vitamin A&D TP 1 applic Q8 PRN Administration Dry skin Zinc Sulfate 220 mg 10/28/17 11:00 10/28/17 11:28 Zinc Sulfate 220 Mg Cap PO 220 mg DAILY LISA Administration - Patient Studies Lab Studies: Microbiology Studies 10/27/17 00:06 MRSA Culture (Admit) - Final Nose MRSA NOT DETECTED 10/27/17 10:41 Blood Culture - Preliminary Blood-Venous NO GROWTH AFTER 24 HOURS 10/27/17 09:15 Urine Culture - Final Urine,Clay No Growth (<1,000 CFU/ML) 10/27/17 09:15 Blood Culture - Preliminary Blood-Venous NO GROWTH AFTER 24 HOURS Lab Studies 10/29/17 10/29/17 10/29/17 Range/Units 06:31 06:28 06:23 WBC 17.5 H (4.8-10.8) K/uL RBC 3.18 L (4.40-5.90) Mil/uL Hgb 8.7 L (12.0-18.0) g/dL Hct 26.2 L (35.0-51.0) % MCV 82.5 (80.0-94.0) fL MCH 27.6 (27.0-31.0) pg MCHC 33.4 (33.0-37.0) g/dL RDW 20.7 H (11.5-14.5) % Plt Count 74 L (130-400) K/uL MPV 10.6 (7.2-11.7) fL Neut % (Auto) 91.4 H (50.0-75.0) % Lymph % (Auto) 5.7 L (20.0-40.0) % [place] % (Auto) 2.6 (0.0-10.0) % Eos % (Auto) 0.0 (0.0-4.0) % Baso % (Auto) 0.3 (0.0-2.0) % Neut # (Auto) 16.0 H (1.8-7.0) K/uL Lymph # (Auto) 1.0 (1.0-4.3) K/uL [place] # (Auto) 0.5 (0.0-0.8) K/uL Eos # (Auto) 0.0 (0.0-0.7) K/uL Baso # (Auto) 0.1 (0.0-0.2) K/uL Puncture Site pCO2 (35-45) mm/Hg pO2 (80-100) mm/Hg HCO3 (21-28) mmol/L ABG pH (7.35-7.45) ABG Total CO2 (22-28) mmol/L ABG O2 Saturation (95-98) % ABG Base Excess (-2.0-3.0) mmol/L ABG Hemoglobin (11.7-17.4) g/dL ABG Carboxyhemoglobin (0.5-1.5) % POC ABG HHb (Measured) (0.0-5.0) % ABG Methemoglobin (0.0-3.0) % Jt Test ABG Potassium (3.6-5.2) mmol/L A-a O2 Difference mm/Hg Respiratory Index Hgb O2 Saturation (95.0-98.0) % Sodium 151 H (132-148) mmol/l Chloride 109 H (98-107) mmol/L Glucose (75-110) mg/dl Lactate (0.7-2.1) mmol/L Vent Mode Mechanical Rate FiO2 % Tidal Volume PEEP Crit Value Called To Crit Value Called By Crit Value Read Back Blood Gas Notified Time Potassium 4.6 (3.6-5.2) mmol/L Carbon Dioxide 36 H (22-30) mmol/L Anion Gap 11 (10-20) BUN 27 H (9-20) mg/dL Creatinine 1.1 (0.8-1.5) mg/dL Est GFR ( Amer) > 60 Est GFR (Non-Af Amer) > 60 POC Glucose (mg/dL) 174 H (65-110) mg/dL Random Glucose 160 H (75-110) mg/dL Calcium 7.7 L (8.6-10.4) mg/dl Phosphorus 3.9 (2.5-4.5) mg/dL Magnesium 2.2 (1.6-2.3) mg/dL Total Bilirubin 0.9 (0.2-1.3) mg/dL AST 43 (17-59) U/L ALT 45 (21-72) U/L Alkaline Phosphatase 362 H (38-126) U/L Troponin I (0.00-0.120) ng/mL Total Protein 5.8 L (6.3-8.3) g/dL Albumin 2.5 L (3.5-5.0) g/dL Globulin 3.2 (2.2-3.9) gm/dL Albumin/Globulin Ratio 0.8 L (1.0-2.1) Arterial Blood Potassium (3.6-5.2) mmol/L Vancomycin Trough (5.0-10.0) ug/mL 10/29/17 10/28/17 10/28/17 Range/Units 05:20 23:55 18:30 WBC (4.8-10.8) K/uL RBC (4.40-5.90) Mil/uL Hgb (12.0-18.0) g/dL Hct (35.0-51.0) % MCV (80.0-94.0) fL MCH (27.0-31.0) pg MCHC (33.0-37.0) g/dL RDW (11.5-14.5) % Plt Count (130-400) K/uL MPV (7.2-11.7) fL Neut % (Auto) (50.0-75.0) % Lymph % (Auto) (20.0-40.0) % [place] % (Auto) (0.0-10.0) % Eos % (Auto) (0.0-4.0) % Baso % (Auto) (0.0-2.0) % Neut # (Auto) (1.8-7.0) K/uL Lymph # (Auto) (1.0-4.3) K/uL [place] # (Auto) (0.0-0.8) K/uL Eos # (Auto) (0.0-0.7) K/uL Baso # (Auto) (0.0-0.2) K/uL Puncture Site R rad pCO2 78 H* (35-45) mm/Hg pO2 130 H (80-100) mm/Hg HCO3 29.9 H (21-28) mmol/L ABG pH 7.26 L (7.35-7.45) ABG Total CO2 37.4 H (22-28) mmol/L ABG O2 Saturation 99.1 H (95-98) % ABG Base Excess 6.4 H (-2.0-3.0) mmol/L ABG Hemoglobin 9.1 L (11.7-17.4) g/dL ABG Carboxyhemoglobin 1.9 H (0.5-1.5) % POC ABG HHb (Measured) 0.9 (0.0-5.0) % ABG Methemoglobin 1.1 (0.0-3.0) % Jt Test Pos ABG Potassium (3.6-5.2) mmol/L A-a O2 Difference 486.0 mm/Hg Respiratory Index 3.7 Hgb O2 Saturation 96.1 (95.0-98.0) % Sodium (132-148) mmol/l Chloride (98-107) mmol/L Glucose (75-110) mg/dl Lactate (0.7-2.1) mmol/L Vent Mode Prvc Mechanical Rate 24 FiO2 100.0 % Tidal Volume 500 PEEP 8 Crit Value Called To [facility] research agricultural engineer Crit Value Called By Cynthia hernandez rt Crit Value Read Back Y Blood Gas Notified Time 535 Potassium (3.6-5.2) mmol/L Carbon Dioxide (22-30) mmol/L Anion Gap (10-20) BUN (9-20) mg/dL Creatinine (0.8-1.5) mg/dL Est GFR ( Amer) Est GFR (Non-Af Amer) POC Glucose (mg/dL) 159 H 171 H (65-110) mg/dL Random Glucose (75-110) mg/dL Calcium (8.6-10.4) mg/dl Phosphorus (2.5-4.5) mg/dL Magnesium (1.6-2.3) mg/dL Total Bilirubin (0.2-1.3) mg/dL AST (17-59) U/L ALT (21-72) U/L Alkaline Phosphatase (38-126) U/L Troponin I (0.00-0.120) ng/mL Total Protein (6.3-8.3) g/dL Albumin (3.5-5.0) g/dL Globulin (2.2-3.9) gm/dL Albumin/Globulin Ratio (1.0-2.1) Arterial Blood Potassium (3.6-5.2) mmol/L Vancomycin Trough (5.0-10.0) ug/mL 10/28/17 10/28/17 10/28/17 Range/Units 16:34 11:56 11:20 WBC (4.8-10.8) K/uL RBC (4.40-5.90) Mil/uL Hgb (12.0-18.0) g/dL Hct (35.0-51.0) % MCV (80.0-94.0) fL MCH (27.0-31.0) pg MCHC (33.0-37.0) g/dL RDW (11.5-14.5) % Plt Count (130-400) K/uL MPV (7.2-11.7) fL Neut % (Auto) (50.0-75.0) % Lymph % (Auto) (20.0-40.0) % [place] % (Auto) (0.0-10.0) % Eos % (Auto) (0.0-4.0) % Baso % (Auto) (0.0-2.0) % Neut # (Auto) (1.8-7.0) K/uL Lymph # (Auto) (1.0-4.3) K/uL [place] # (Auto) (0.0-0.8) K/uL Eos # (Auto) (0.0-0.7) K/uL Baso # (Auto) (0.0-0.2) K/uL Puncture Site Rba Lra pCO2 73 H* 75 H* (35-45) mm/Hg pO2 126 H 85 (80-100) mm/Hg HCO3 27.6 22.5 (21-28) mmol/L ABG pH 7.26 L 7.17 L* (7.35-7.45) ABG Total CO2 35.0 H 29.7 H (22-28) mmol/L ABG O2 Saturation 99.4 H 96.9 (95-98) % ABG Base Excess 3.4 H -3.0 L (-2.0-3.0) mmol/L ABG Hemoglobin (11.7-17.4) g/dL ABG Carboxyhemoglobin (0.5-1.5) % POC ABG HHb (Measured) (0.0-5.0) % ABG Methemoglobin (0.0-3.0) % Jt Test Na Po ABG Potassium 4.2 2.6 L (3.6-5.2) mmol/L A-a O2 Difference 496.0 534.0 mm/Hg Respiratory Index 3.9 6.3 Hgb O2 Saturation (95.0-98.0) % Sodium 144.0 150.0 H (132-148) mmol/l Chloride 112.0 H 115.0 H (98-107) mmol/L Glucose 163 H 110 (75-110) mg/dl Lactate 1.3 1.0 (0.7-2.1) mmol/L Vent Mode Prvc Prvc Mechanical Rate 24 FiO2 100.0 100.0 % Tidal Volume 550 480 PEEP 8 8 Crit Value Called To [facility] research agricultural engineer Dr.patl kong Crit Value Called By John gavin,laundry washer Crit Value Read Back Y Y Blood Gas Notified Time 1639 1210 Potassium (3.6-5.2) mmol/L Carbon Dioxide (22-30) mmol/L Anion Gap (10-20) BUN (9-20) mg/dL Creatinine (0.8-1.5) mg/dL Est GFR ( Amer) Est GFR (Non-Af Amer) POC Glucose (mg/dL) 150 H (65-110) mg/dL Random Glucose (75-110) mg/dL Calcium (8.6-10.4) mg/dl Phosphorus (2.5-4.5) mg/dL Magnesium (1.6-2.3) mg/dL Total Bilirubin (0.2-1.3) mg/dL AST (17-59) U/L ALT (21-72) U/L Alkaline Phosphatase (38-126) U/L Troponin I (0.00-0.120) ng/mL Total Protein (6.3-8.3) g/dL Albumin (3.5-5.0) g/dL Globulin (2.2-3.9) gm/dL Albumin/Globulin Ratio (1.0-2.1) Arterial Blood Potassium 4.2 2.6 L (3.6-5.2) mmol/L Vancomycin Trough (5.0-10.0) ug/mL 10/28/17 10/28/17 Range/Units 11:16 11:16 WBC (4.8-10.8) K/uL RBC (4.40-5.90) Mil/uL Hgb (12.0-18.0) g/dL Hct (35.0-51.0) % MCV (80.0-94.0) fL MCH (27.0-31.0) pg MCHC (33.0-37.0) g/dL RDW (11.5-14.5) % Plt Count (130-400) K/uL MPV (7.2-11.7) fL Neut % (Auto) (50.0-75.0) % Lymph % (Auto) (20.0-40.0) % [place] % (Auto) (0.0-10.0) % Eos % (Auto) (0.0-4.0) % Baso % (Auto) (0.0-2.0) % Neut # (Auto) (1.8-7.0) K/uL Lymph # (Auto) (1.0-4.3) K/uL [place] # (Auto) (0.0-0.8) K/uL Eos # (Auto) (0.0-0.7) K/uL Baso # (Auto) (0.0-0.2) K/uL Puncture Site pCO2 (35-45) mm/Hg pO2 (80-100) mm/Hg HCO3 (21-28) mmol/L ABG pH (7.35-7.45) ABG Total CO2 (22-28) mmol/L ABG O2 Saturation (95-98) % ABG Base Excess (-2.0-3.0) mmol/L ABG Hemoglobin (11.7-17.4) g/dL ABG Carboxyhemoglobin (0.5-1.5) % POC ABG HHb (Measured) (0.0-5.0) % ABG Methemoglobin (0.0-3.0) % Jt Test ABG Potassium (3.6-5.2) mmol/L A-a O2 Difference mm/Hg Respiratory Index Hgb O2 Saturation (95.0-98.0) % Sodium (132-148) mmol/l Chloride (98-107) mmol/L Glucose (75-110) mg/dl Lactate (0.7-2.1) mmol/L Vent Mode Mechanical Rate FiO2 % Tidal Volume PEEP Crit Value Called To Crit Value Called By Crit Value Read Back Blood Gas Notified Time Potassium (3.6-5.2) mmol/L Carbon Dioxide (22-30) mmol/L Anion Gap (10-20) BUN (9-20) mg/dL Creatinine (0.8-1.5) mg/dL Est GFR ( Amer) Est GFR (Non-Af Amer) POC Glucose (mg/dL) (65-110) mg/dL Random Glucose (75-110) mg/dL Calcium (8.6-10.4) mg/dl Phosphorus (2.5-4.5) mg/dL Magnesium (1.6-2.3) mg/dL Total Bilirubin (0.2-1.3) mg/dL AST (17-59) U/L ALT (21-72) U/L Alkaline Phosphatase (38-126) U/L Troponin I 0.1190 (0.00-0.120) ng/mL Total Protein (6.3-8.3) g/dL Albumin (3.5-5.0) g/dL Globulin (2.2-3.9) gm/dL Albumin/Globulin Ratio (1.0-2.1) Arterial Blood Potassium (3.6-5.2) mmol/L Vancomycin Trough 12.3 H (5.0-10.0) ug/mL Laboratory Results - last 24 hr 10/28/17 10/28/17 10/28/17 11:16 11:16 11:20 WBC RBC Hgb Hct MCV MCH MCHC RDW Plt Count MPV Neut % (Auto) Lymph % (Auto) [place] % (Auto) Eos % (Auto) Baso % (Auto) Neut # (Auto) Lymph # (Auto) [place] # (Auto) Eos # (Auto) Baso # (Auto) Puncture Site pCO2 pO2 HCO3 ABG pH ABG Total CO2 ABG O2 Saturation ABG Base Excess ABG Hemoglobin ABG Carboxyhemoglobin POC ABG HHb (Measured) ABG Methemoglobin Jt Test ABG Potassium A-a O2 Difference Respiratory Index Hgb O2 Saturation Sodium Chloride Glucose Lactate Vent Mode Mechanical Rate FiO2 Tidal Volume PEEP Crit Value Called To Crit Value Called By Crit Value Read Back Blood Gas Notified Time Potassium Carbon Dioxide Anion Gap BUN Creatinine Est GFR ( Amer) Est GFR (Non-Af Amer) POC Glucose (mg/dL) 150 H Random Glucose Calcium Phosphorus Magnesium Total Bilirubin AST ALT Alkaline Phosphatase Troponin I 0.1190 Total Protein Albumin Globulin Albumin/Globulin Ratio Arterial Blood Potassium Vancomycin Trough 12.3 H 10/28/17 10/28/17 10/28/17 11:56 16:34 18:30 WBC RBC Hgb Hct MCV MCH MCHC RDW Plt Count MPV Neut % (Auto) Lymph % (Auto) [place] % (Auto) Eos % (Auto) Baso % (Auto) Neut # (Auto) Lymph # (Auto) [place] # (Auto) Eos # (Auto) Baso # (Auto) Puncture Site Lra Rba pCO2 75 H* 73 H* pO2 85 126 H HCO3 22.5 27.6 ABG pH 7.17 L* 7.26 L ABG Total CO2 29.7 H 35.0 H ABG O2 Saturation 96.9 99.4 H ABG Base Excess -3.0 L 3.4 H ABG Hemoglobin ABG Carboxyhemoglobin POC ABG HHb (Measured) ABG Methemoglobin Jt Test Po Na ABG Potassium 2.6 L 4.2 A-a O2 Difference 534.0 496.0 Respiratory Index 6.3 3.9 Hgb O2 Saturation Sodium 150.0 H 144.0 Chloride 115.0 H 112.0 H Glucose 110 163 H Lactate 1.0 1.3 Vent Mode Prvc Prvc Mechanical Rate 24 FiO2 100.0 100.0 Tidal Volume 480 550 PEEP 8 8 Crit Value Called To Dr.patl luann Cr research agricultural engineer Crit Value Called By Rj gavin,laundry washer Lendl Crit Value Read Back Y Y Blood Gas Notified Time 1210 1639 Potassium Carbon Dioxide Anion Gap BUN Creatinine Est GFR ( Amer) Est GFR (Non-Af Amer) POC Glucose (mg/dL) 171 H Random Glucose Calcium Phosphorus Magnesium Total Bilirubin AST ALT Alkaline Phosphatase Troponin I Total Protein Albumin Globulin Albumin/Globulin Ratio Arterial Blood Potassium 2.6 L 4.2 Vancomycin Trough 10/28/17 10/29/17 10/29/17 23:55 05:20 06:23 WBC RBC Hgb Hct MCV MCH MCHC RDW Plt Count MPV Neut % (Auto) Lymph % (Auto) [place] % (Auto) Eos % (Auto) Baso % (Auto) Neut # (Auto) Lymph # (Auto) [place] # (Auto) Eos # (Auto) Baso # (Auto) Puncture Site R rad pCO2 78 H* pO2 130 H HCO3 29.9 H ABG pH 7.26 L ABG Total CO2 37.4 H ABG O2 Saturation 99.1 H ABG Base Excess 6.4 H ABG Hemoglobin 9.1 L ABG Carboxyhemoglobin 1.9 H POC ABG HHb (Measured) 0.9 ABG Methemoglobin 1.1 Jt Test Pos ABG Potassium A-a O2 Difference 486.0 Respiratory Index 3.7 Hgb O2 Saturation 96.1 Sodium 151 H Chloride 109 H Glucose Lactate Vent Mode Prvc Mechanical Rate 24 FiO2 100.0 Tidal Volume 500 PEEP 8 Crit Value Called To Geovani pierre research agricultural engineer Crit Value Called By Cynthia hernandez rt Crit Value Read Back Y Blood Gas Notified Time 535 Potassium 4.6 Carbon Dioxide 36 H Anion Gap 11 BUN 27 H Creatinine 1.1 Est GFR ( Amer) > 60 Est GFR (Non-Af Amer) > 60 POC Glucose (mg/dL) 159 H Random Glucose 160 H Calcium 7.7 L Phosphorus 3.9 Magnesium 2.2 Total Bilirubin 0.9 AST 43 ALT 45 Alkaline Phosphatase 362 H Troponin I Total Protein 5.8 L Albumin 2.5 L Globulin 3.2 Albumin/Globulin Ratio 0.8 L Arterial Blood Potassium Vancomycin Trough 10/29/17 10/29/17 06:28 06:31 WBC 17.5 H RBC 3.18 L Hgb 8.7 L Hct 26.2 L MCV 82.5 MCH 27.6 MCHC 33.4 RDW 20.7 H Plt Count 74 L MPV 10.6 Neut % (Auto) 91.4 H Lymph % (Auto) 5.7 L [place] % (Auto) 2.6 Eos % (Auto) 0.0 Baso % (Auto) 0.3 Neut # (Auto) 16.0 H Lymph # (Auto) 1.0 [place] # (Auto) 0.5 Eos # (Auto) 0.0 Baso # (Auto) 0.1 Puncture Site pCO2 pO2 HCO3 ABG pH ABG Total CO2 ABG O2 Saturation ABG Base Excess ABG Hemoglobin ABG Carboxyhemoglobin POC ABG HHb (Measured) ABG Methemoglobin Jt Test ABG Potassium A-a O2 Difference Respiratory Index Hgb O2 Saturation Sodium Chloride Glucose Lactate Vent Mode Mechanical Rate FiO2 Tidal Volume PEEP Crit Value Called To Crit Value Called By Crit Value Read Back Blood Gas Notified Time Potassium Carbon Dioxide Anion Gap BUN Creatinine Est GFR ( Amer) Est GFR (Non-Af Amer) POC Glucose (mg/dL) 174 H Random Glucose Calcium Phosphorus Magnesium Total Bilirubin AST ALT Alkaline Phosphatase Troponin I Total Protein Albumin Globulin Albumin/Globulin Ratio Arterial Blood Potassium Vancomycin Trough Fingerstick Blood Sugar Results: 179 Critical Care Progress Note - Nutrition Nutrition: Nutrition Category Date Time Status NPO Diet [DIET] Diets 10/27/17 Lunch Active Assessment/Plan - Assessment and Plan (Free Text) Assessment: This is a 62 year old male with PMHx of Anxiety, Alzhiemer's, HTN, 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 Patient is s/p code blue - 1 round epi, 1 bolus Amio, intubated- 10/26. Admitted to the ICU for NSTEMI, Septic shock, ANDRES with metabolic acidosis, Hypoxic and Hypercapneic respiratory failure ARDS vs PE?, currently intubated on 2 pressors. Plan: Neuro: GCS 7T Intubated, versed and fentanyl A: AMS - Pending Head CT A: Alzhiemer's - Aricept Cardio: A: NSTEMI - Pending head CT to start anticoagulation A: HTN - On levo Pulm: A: Hypoxic and Hypercapneic Respiratory Failure - Suspected ARDS versus PE - Intubated on PRVC - ECHO LVEF 53%, flattened septum consistent with RV volume and pressure overload. - Pending CT chest/ ab/pelvis Heme/Onc: A: Stage IV Small Cell Lung Cancer - Liver, kidney, possible brain mets, and now pancreatic metastasis A: Anemia of Chronic Disease - 2/2 Malignancy A: Pancytopenia - 2/2 Malignancy Renal: A: Metabolic Acidosis resolved - Bicarb drip DC'd ID: A: Sepsis - Leukocytosis, bandemia, lactate 4.0 -> 2.1 - Started on Aztreonam (10/20), Doxy (10/27), Flagyl (10/20), Vanco Q12 (10/27), Avelox 10/27 - Lambert cultures - negative to date - f/u coags A: Aspiration Pneumonia - Started on Aztreonam (10/20), Doxy (10/27), Flagyl (10/20), Vanco Q12 (10/27), Avelox 10/27 Prophylaxis: - Pepcid daily - SCDs, hold VTE until head CT - Lines: Right Fem TLC - 10/27 - Right permacath - Prognosis guarded - Started NGT feeds Disposition: Patient is full code. Will speak to palliative to speak to family to determine goals of care, given poor prognosis. DW Becka Vee DO, PGY-1 <Donald Ariza - Last Filed: 10/29/17 16:12> CCU Objective - Vital Signs / Intake & Output Vital Signs (Last 4 hours): Vital Signs Pulse Resp BP Pulse Ox 10/29/17 15:00 94 H 7 L 120/75 98 10/29/17 14:02 90 24 113/74 96 10/29/17 14:00 93 H 0 L 99 10/29/17 13:59 89 0 L 113/74 99 10/29/17 13:49 92 H 0 L 120/71 97 10/29/17 13:39 97 H 13 102/63 98 10/29/17 13:29 105 H 11 L 125/87 89 L 10/29/17 13:19 85 24 108/70 100 10/29/17 13:09 83 25 H 115/71 100 10/29/17 13:00 91 H 23 100 10/29/17 12:59 89 24 111/70 100 10/29/17 12:49 96 H 21 106/67 100 10/29/17 12:39 103 H 24 110/67 100 10/29/17 12:29 99 H 24 108/66 100 10/29/17 12:19 113 H 23 95/53 L 100 10/29/17 12:09 113 H 23 107/66 98 Intake and Output (Last 8hrs): Intake & Output 10/29/17 10/29/17 10/29/17 06:59 14:59 22:59 Intake Total 690.6 1574.7 Output Total 930 200 Balance -239.4 1374.7 Intake: IV 400 493 Intake, IV Amount 290.6 991.7 Right Distal Port Femoral 333 Right Medial Port Femoral 60.0 98.4 Right Port-A-Cath 210.6 533.3 Right Proximal Port 20.0 27.0 Femoral Oral 0 Tube Feeding 90 Output: Urine 930 200 Urethral (Clay) 930 200 Stool 0 Other: # Bowel Movements 0 - Medications Active Medications: Active Medications Generic Name Dose Route Start Last Admin Trade Name Shahriarq PRN Reason Stop Dose Admin Albuterol/Ipratropium 3 ml 10/26/17 20:00 10/29/17 14:08 Duoneb 3 Mg/0.5 Mg (3 Ml) Ud INH 3 ml RQ6 LISA Administration Ascorbic Acid 500 mg 10/28/17 11:00 10/29/17 10:56 Vitamin C 500 Mg Tab PO 500 mg DAILY LISA Administration Donepezil HCl 10 mg 10/20/17 22:00 10/28/17 21:09 Aricept PO 10 mg HS LISA Administration Famotidine 20 mg 10/22/17 10:00 10/29/17 10:56 Pepcid PO 20 mg DAILY LISA Administration Folic Acid 1 mg 10/28/17 11:00 10/29/17 10:56 Folic Acid PO 1 mg DAILY LISA Administration Hydrocortisone Sodium Succinate 50 mg 10/28/17 18:30 10/29/17 13:21 Solu-Cortef IV 50 mg Q6H LISA Administration Metronidazole 500 mg in 100 mls @ 100 mls/hr 10/20/17 22:00 10/29/17 14:33 Flagyl IVPB 100 mls/hr Q8H LISA Administration Protocol Aztreonam 2 gm/ Sodium 100 mls @ 200 mls/hr 10/20/17 22:30 10/29/17 13:32 Chloride IVPB 200 mls/hr Q8H LISA Administration Protocol Vancomycin/Sodium Chloride 1 gm in 200 mls @ 133 mls/hr 10/27/17 00:30 11:30 Vancomycin 1 Gm/Ns 200 Ml IVPB 11/01/17 00:31 133 mls/hr Q12H LISA Administration Protocol Norepinephrine Bitartrate 4 mg 254 mls @ 15.24 mls/hr 10/27/17 08:30 14:02 / Dextrose IV 6 mcg/min .[id number] PRN 22.86 mls/hr TITRATE PER MD ORDER Administration Protocol 4 MCG/MIN Midazolam HCl 100 mg/ Dextrose 100 mls @ 1.9 mls/hr 10/28/17 18:45 10/29/17 08:04 IV 0.03 mg/kg/hr .Q24H LISA 3.5 mls/hr Protocol Titration 0.02 MG/KG/HR Fentanyl Citrate 2,500 mcg/ 250 mls @ 19.05 mls/hr 10/28/17 20:30 10/29/17 13 :08 Sodium Chloride IV 6 mcg/kg/hr .[id number] PRN 57.15 mls/hr Protocol Administration 2 MCG/KG/HR Insulin Aspart 0 unit 10/28/17 18:30 10/29/17 13:22 Novolog SC 2 units Q6H LISA Administration Protocol Lactulose 20 gm 10/28/17 10:57 Enulose NG Q8H PRN Constipation Moxifloxacin HCl 400 mg 10/28/17 10:45 10/29/17 10:56 Avelox NG 10/31/17 10:01 400 mg DAILY LISA Administration Protocol Multivitamins 1 tab 10/29/17 11:00 10/29/17 11:00 Hexavitamin PO 1 tab DAILY LISA Administration Ondansetron HCl 4 mg 10/20/17 18:06 Zofran Inj IVP Q6 PRN Nausea/Vomiting Vitamin A 0 applic 10/27/17 12:09 10/27/17 17:02 Vitamin A&D TP 1 applic Q8 PRN Administration Dry skin Zinc Sulfate 220 mg 10/28/17 11:00 10/29/17 10:56 Zinc Sulfate 220 Mg Cap PO 220 mg DAILY LISA Administration - Patient Studies Lab Studies: Microbiology Studies 10/27/17 10:41 Blood Culture - Preliminary Blood-Venous NO GROWTH AFTER 48 HOURS 10/27/17 10:41 Gram Stain - Final Trachasp Sputum Culture - Final NORMAL ORAL [place]VER 10/27/17 09:15 Blood Culture - Preliminary Blood-Venous NO GROWTH AFTER 48 HOURS Lab Studies 10/29/17 10/29/17 10/29/17 Range/Units 11:55 11:22 06:31 WBC (4.8-10.8) K/uL RBC (4.40-5.90) Mil/uL Hgb (12.0-18.0) g/dL Hct (35.0-51.0) % MCV (80.0-94.0) fL MCH (27.0-31.0) pg MCHC (33.0-37.0) g/dL RDW (11.5-14.5) % Plt Count (130-400) K/uL MPV (7.2-11.7) fL Neut % (Auto) (50.0-75.0) % Lymph % (Auto) (20.0-40.0) % [place] % (Auto) (0.0-10.0) % Eos % (Auto) (0.0-4.0) % Baso % (Auto) (0.0-2.0) % Neut # (Auto) (1.8-7.0) K/uL Lymph # (Auto) (1.0-4.3) K/uL [place] # (Auto) (0.0-0.8) K/uL Eos # (Auto) (0.0-0.7) K/uL Baso # (Auto) (0.0-0.2) K/uL Neutrophils % (Manual) (50-75) % Band Neutrophils % (0-2) % Lymphocytes % (Manual) (20-40) % Reactive Lymphs % (0-0) % Monocytes % (Manual) (0-10) % Metamyelocytes % (0-0) % Myelocytes % (0-0) % Nucleated RBC % (0-0) % Platelet Estimate (NORMAL) Polychromasia Hypochromasia (manual) Anisocytosis (manual) Target Cells PT 17.7 H (9.7-12.2) SECONDS INR 1.6 APTT 25 (21-34) SECONDS Fibrinogen 367 (200-400) mg/dL Puncture Site pCO2 (35-45) mm/Hg pO2 (80-100) mm/Hg HCO3 (21-28) mmol/L ABG pH (7.35-7.45) ABG Total CO2 (22-28) mmol/L ABG O2 Saturation (95-98) % ABG Base Excess (-2.0-3.0) mmol/L ABG Hemoglobin (11.7-17.4) g/dL ABG Carboxyhemoglobin (0.5-1.5) % POC ABG HHb (Measured) (0.0-5.0) % ABG Methemoglobin (0.0-3.0) % Jt Test ABG Potassium (3.6-5.2) mmol/L A-a O2 Difference mm/Hg Respiratory Index Hgb O2 Saturation (95.0-98.0) % Sodium (132-148) mmol/l Chloride (98-107) mmol/L Glucose (75-110) mg/dl Lactate (0.7-2.1) mmol/L Vent Mode Mechanical Rate FiO2 % Tidal Volume PEEP Crit Value Called To Crit Value Called By Crit Value Read Back Blood Gas Notified Time Potassium (3.6-5.2) mmol/L Carbon Dioxide (22-30) mmol/L Anion Gap (10-20) BUN (9-20) mg/dL Creatinine (0.8-1.5) mg/dL Est GFR ( Amer) Est GFR (Non-Af Amer) POC Glucose (mg/dL) 172 H 174 H (65-110) mg/dL Random Glucose (75-110) mg/dL Calcium (8.6-10.4) mg/dl Phosphorus (2.5-4.5) mg/dL Magnesium (1.6-2.3) mg/dL Total Bilirubin (0.2-1.3) mg/dL AST (17-59) U/L ALT (21-72) U/L Alkaline Phosphatase (38-126) U/L Total Protein (6.3-8.3) g/dL Albumin (3.5-5.0) g/dL Globulin (2.2-3.9) gm/dL Albumin/Globulin Ratio (1.0-2.1) Arterial Blood Potassium (3.6-5.2) mmol/L 10/29/17 10/29/17 10/29/17 Range/Units 06:28 06:23 05:20 WBC 17.5 H (4.8-10.8) K/uL RBC 3.18 L (4.40-5.90) Mil/uL Hgb 8.7 L (12.0-18.0) g/dL Hct 26.2 L (35.0-51.0) % MCV 82.5 (80.0-94.0) fL MCH 27.6 (27.0-31.0) pg MCHC 33.4 (33.0-37.0) g/dL RDW 20.7 H (11.5-14.5) % Plt Count 74 L (130-400) K/uL MPV 10.6 (7.2-11.7) fL Neut % (Auto) 91.4 H (50.0-75.0) % Lymph % (Auto) 5.7 L (20.0-40.0) % [place] % (Auto) 2.6 (0.0-10.0) % Eos % (Auto) 0.0 (0.0-4.0) % Baso % (Auto) 0.3 (0.0-2.0) % Neut # (Auto) 16.0 H (1.8-7.0) K/uL Lymph # (Auto) 1.0 (1.0-4.3) K/uL [place] # (Auto) 0.5 (0.0-0.8) K/uL Eos # (Auto) 0.0 (0.0-0.7) K/uL Baso # (Auto) 0.1 (0.0-0.2) K/uL Neutrophils % (Manual) 50 (50-75) % Band Neutrophils % 28 H* (0-2) % Lymphocytes % (Manual) 5 L (20-40) % Reactive Lymphs % 2 H (0-0) % Monocytes % (Manual) 6 (0-10) % Metamyelocytes % 3 H (0-0) % Myelocytes % 6 H (0-0) % Nucleated RBC % 3 H (0-0) % Platelet Estimate Decreased L (NORMAL) Polychromasia Slight Hypochromasia (manual) Slight Anisocytosis (manual) Slight Target Cells Slight PT (9.7-12.2) SECONDS INR APTT (21-34) SECONDS Fibrinogen (200-400) mg/dL Puncture Site R rad pCO2 78 H* (35-45) mm/Hg pO2 130 H (80-100) mm/Hg HCO3 29.9 H (21-28) mmol/L ABG pH 7.26 L (7.35-7.45) ABG Total CO2 37.4 H (22-28) mmol/L ABG O2 Saturation 99.1 H (95-98) % ABG Base Excess 6.4 H (-2.0-3.0) mmol/L ABG Hemoglobin 9.1 L (11.7-17.4) g/dL ABG Carboxyhemoglobin 1.9 H (0.5-1.5) % POC ABG HHb (Measured) 0.9 (0.0-5.0) % ABG Methemoglobin 1.1 (0.0-3.0) % Jt Test Pos ABG Potassium (3.6-5.2) mmol/L A-a O2 Difference 486.0 mm/Hg Respiratory Index 3.7 Hgb O2 Saturation 96.1 (95.0-98.0) % Sodium 151 H (132-148) mmol/l Chloride 109 H (98-107) mmol/L Glucose (75-110) mg/dl Lactate (0.7-2.1) mmol/L Vent Mode Prvc Mechanical Rate 24 FiO2 100.0 % Tidal Volume 500 PEEP 8 Crit Value Called To Geovani pierre research agricultural engineer Crit Value Called By Cynthia david rt Crit Value Read Back Y Blood Gas Notified Time 535 Potassium 4.6 (3.6-5.2) mmol/L Carbon Dioxide 36 H (22-30) mmol/L Anion Gap 11 (10-20) BUN 27 H (9-20) mg/dL Creatinine 1.1 (0.8-1.5) mg/dL Est GFR ( Amer) > 60 Est GFR (Non-Af Amer) > 60 POC Glucose (mg/dL) (65-110) mg/dL Random Glucose 160 H (75-110) mg/dL Calcium 7.7 L (8.6-10.4) mg/dl Phosphorus 3.9 (2.5-4.5) mg/dL Magnesium 2.2 (1.6-2.3) mg/dL Total Bilirubin 0.9 (0.2-1.3) mg/dL AST 43 (17-59) U/L ALT 45 (21-72) U/L Alkaline Phosphatase 362 H (38-126) U/L Total Protein 5.8 L (6.3-8.3) g/dL Albumin 2.5 L (3.5-5.0) g/dL Globulin 3.2 (2.2-3.9) gm/dL Albumin/Globulin Ratio 0.8 L (1.0-2.1) Arterial Blood Potassium (3.6-5.2) mmol/L 10/28/17 10/28/17 10/28/17 Range/Units 23:55 18:30 16:34 WBC (4.8-10.8) K/uL RBC (4.40-5.90) Mil/uL Hgb (12.0-18.0) g/dL Hct (35.0-51.0) % MCV (80.0-94.0) fL MCH (27.0-31.0) pg MCHC (33.0-37.0) g/dL RDW (11.5-14.5) % Plt Count (130-400) K/uL MPV (7.2-11.7) fL Neut % (Auto) (50.0-75.0) % Lymph % (Auto) (20.0-40.0) % [place] % (Auto) (0.0-10.0) % Eos % (Auto) (0.0-4.0) % Baso % (Auto) (0.0-2.0) % Neut # (Auto) (1.8-7.0) K/uL Lymph # (Auto) (1.0-4.3) K/uL [place] # (Auto) (0.0-0.8) K/uL Eos # (Auto) (0.0-0.7) K/uL Baso # (Auto) (0.0-0.2) K/uL Neutrophils % (Manual) (50-75) % Band Neutrophils % (0-2) % Lymphocytes % (Manual) (20-40) % Reactive Lymphs % (0-0) % Monocytes % (Manual) (0-10) % Metamyelocytes % (0-0) % Myelocytes % (0-0) % Nucleated RBC % (0-0) % Platelet Estimate (NORMAL) Polychromasia Hypochromasia (manual) Anisocytosis (manual) Target Cells PT (9.7-12.2) SECONDS INR APTT (21-34) SECONDS Fibrinogen (200-400) mg/dL Puncture Site Rba pCO2 73 H* (35-45) mm/Hg pO2 126 H (80-100) mm/Hg HCO3 27.6 (21-28) mmol/L ABG pH 7.26 L (7.35-7.45) ABG Total CO2 35.0 H (22-28) mmol/L ABG O2 Saturation 99.4 H (95-98) % ABG Base Excess 3.4 H (-2.0-3.0) mmol/L ABG Hemoglobin (11.7-17.4) g/dL ABG Carboxyhemoglobin (0.5-1.5) % POC ABG HHb (Measured) (0.0-5.0) % ABG Methemoglobin (0.0-3.0) % Jt Test Na ABG Potassium 4.2 (3.6-5.2) mmol/L A-a O2 Difference 496.0 mm/Hg Respiratory Index 3.9 Hgb O2 Saturation (95.0-98.0) % Sodium 144.0 (132-148) mmol/l Chloride 112.0 H (98-107) mmol/L Glucose 163 H (75-110) mg/dl Lactate 1.3 (0.7-2.1) mmol/L Vent Mode Prvc Mechanical Rate 24 FiO2 100.0 % Tidal Volume 550 PEEP 8 Crit Value Called To Shaye research agricultural engineer Crit Value Called By John Crit Value Read Back Y Blood Gas Notified Time 1639 Potassium (3.6-5.2) mmol/L Carbon Dioxide (22-30) mmol/L Anion Gap (10-20) BUN (9-20) mg/dL Creatinine (0.8-1.5) mg/dL Est GFR ( Amer) Est GFR (Non-Af Amer) POC Glucose (mg/dL) 159 H 171 H (65-110) mg/dL Random Glucose (75-110) mg/dL Calcium (8.6-10.4) mg/dl Phosphorus (2.5-4.5) mg/dL Magnesium (1.6-2.3) mg/dL Total Bilirubin (0.2-1.3) mg/dL AST (17-59) U/L ALT (21-72) U/L Alkaline Phosphatase (38-126) U/L Total Protein (6.3-8.3) g/dL Albumin (3.5-5.0) g/dL Globulin (2.2-3.9) gm/dL Albumin/Globulin Ratio (1.0-2.1) Arterial Blood Potassium 4.2 (3.6-5.2) mmol/L Laboratory Results - last 24 hr 10/28/17 10/28/17 10/28/17 16:34 18:30 23:55 WBC RBC Hgb Hct MCV MCH MCHC RDW Plt Count MPV Neut % (Auto) Lymph % (Auto) [place] % (Auto) Eos % (Auto) Baso % (Auto) Neut # (Auto) Lymph # (Auto) [place] # (Auto) Eos # (Auto) Baso # (Auto) Neutrophils % (Manual) Band Neutrophils % Lymphocytes % (Manual) Reactive Lymphs % Monocytes % (Manual) Metamyelocytes % Myelocytes % Nucleated RBC % Platelet Estimate Polychromasia Hypochromasia (manual) Anisocytosis (manual) Target Cells PT INR APTT Fibrinogen Puncture Site Rba pCO2 73 H* pO2 126 H HCO3 27.6 ABG pH 7.26 L ABG Total CO2 35.0 H ABG O2 Saturation 99.4 H ABG Base Excess 3.4 H ABG Hemoglobin ABG Carboxyhemoglobin POC ABG HHb (Measured) ABG Methemoglobin Jt Test Na ABG Potassium 4.2 A-a O2 Difference 496.0 Respiratory Index 3.9 Hgb O2 Saturation Sodium 144.0 Chloride 112.0 H Glucose 163 H Lactate 1.3 Vent Mode Prvc Mechanical Rate 24 FiO2 100.0 Tidal Volume 550 PEEP 8 Crit Value Called To [facility] research agricultural engineer Crit Value Called By John Crit Value Read Back Y Blood Gas Notified Time 1639 Potassium Carbon Dioxide Anion Gap BUN Creatinine Est GFR ( Amer) Est GFR (Non-Af Amer) POC Glucose (mg/dL) 171 H 159 H Random Glucose Calcium Phosphorus Magnesium Total Bilirubin AST ALT Alkaline Phosphatase Total Protein Albumin Globulin Albumin/Globulin Ratio Arterial Blood Potassium 4.2 10/29/17 10/29/17 10/29/17 05:20 06:23 06:28 WBC 17.5 H RBC 3.18 L Hgb 8.7 L Hct 26.2 L MCV 82.5 MCH 27.6 MCHC 33.4 RDW 20.7 H Plt Count 74 L MPV 10.6 Neut % (Auto) 91.4 H Lymph % (Auto) 5.7 L [place] % (Auto) 2.6 Eos % (Auto) 0.0 Baso % (Auto) 0.3 Neut # (Auto) 16.0 H Lymph # (Auto) 1.0 [place] # (Auto) 0.5 Eos # (Auto) 0.0 Baso # (Auto) 0.1 Neutrophils % (Manual) 50 Band Neutrophils % 28 H* Lymphocytes % (Manual) 5 L Reactive Lymphs % 2 H Monocytes % (Manual) 6 Metamyelocytes % 3 H Myelocytes % 6 H Nucleated RBC % 3 H Platelet Estimate Decreased L Polychromasia Slight Hypochromasia (manual) Slight Anisocytosis (manual) Slight Target Cells Slight PT INR APTT Fibrinogen Puncture Site R rad pCO2 78 H* pO2 130 H HCO3 29.9 H ABG pH 7.26 L ABG Total CO2 37.4 H ABG O2 Saturation 99.1 H ABG Base Excess 6.4 H ABG Hemoglobin 9.1 L ABG Carboxyhemoglobin 1.9 H POC ABG HHb (Measured) 0.9 ABG Methemoglobin 1.1 Jt Test Pos ABG Potassium A-a O2 Difference 486.0 Respiratory Index 3.7 Hgb O2 Saturation 96.1 Sodium 151 H Chloride 109 H Glucose Lactate Vent Mode Prvc Mechanical Rate 24 FiO2 100.0 Tidal Volume 500 PEEP 8 Crit Value Called To [facility] research agricultural engineer Crit Value Called By Cynthia heranndez rt Crit Value Read Back Y Blood Gas Notified Time 535 Potassium 4.6 Carbon Dioxide 36 H Anion Gap 11 BUN 27 H Creatinine 1.1 Est GFR ( Amer) > 60 Est GFR (Non-Af Amer) > 60 POC Glucose (mg/dL) Random Glucose 160 H Calcium 7.7 L Phosphorus 3.9 Magnesium 2.2 Total Bilirubin 0.9 AST 43 ALT 45 Alkaline Phosphatase 362 H Total Protein 5.8 L Albumin 2.5 L Globulin 3.2 Albumin/Globulin Ratio 0.8 L Arterial Blood Potassium 10/29/17 10/29/17 10/29/17 06:31 11:22 11:55 WBC RBC Hgb Hct MCV MCH MCHC RDW Plt Count MPV Neut % (Auto) Lymph % (Auto) [place] % (Auto) Eos % (Auto) Baso % (Auto) Neut # (Auto) Lymph # (Auto) [place] # (Auto) Eos # (Auto) Baso # (Auto) Neutrophils % (Manual) Band Neutrophils % Lymphocytes % (Manual) Reactive Lymphs % Monocytes % (Manual) Metamyelocytes % Myelocytes % Nucleated RBC % Platelet Estimate Polychromasia Hypochromasia (manual) Anisocytosis (manual) Target Cells PT 17.7 H INR 1.6 APTT 25 Fibrinogen 367 Puncture Site pCO2 pO2 HCO3 ABG pH ABG Total CO2 ABG O2 Saturation ABG Base Excess ABG Hemoglobin ABG Carboxyhemoglobin POC ABG HHb (Measured) ABG Methemoglobin Jt Test ABG Potassium A-a O2 Difference Respiratory Index Hgb O2 Saturation Sodium Chloride Glucose Lactate Vent Mode Mechanical Rate FiO2 Tidal Volume PEEP Crit Value Called To Crit Value Called By Crit Value Read Back Blood Gas Notified Time Potassium Carbon Dioxide Anion Gap BUN Creatinine Est GFR ( Amer) Est GFR (Non-Af Amer) POC Glucose (mg/dL) 174 H 172 H Random Glucose Calcium Phosphorus Magnesium Total Bilirubin AST ALT Alkaline Phosphatase Total Protein Albumin Globulin Albumin/Globulin Ratio Arterial Blood Potassium Critical Care Progress Note - Nutrition Nutrition: Nutrition Category Date Time Status NPO Diet [DIET] Diets 10/27/17 Lunch Active Attending/Attestation - Attestation I have personally seen and examined this patient.: Yes I have fully participated in the care of the patient.: Yes I have reviewed all pertinent clinical information: Yes Notes (Text): 10/29/17 16:05 CCM Intubated on sedation/ agitated in AM/ not following commands Neck- no jvd lungs- bilat coarse bs Heart-rr Abd-bs+, soft, nontender Ext- bipedal edema Labs, x-rays reviewed A&P s/p Cardiac Arrest/NSTEMI Hypoxic Hypercapneic Resp Failure Shock Metastatic Lung Ca ANDRES ARDS PNA Anemia Thrombocytopenia Coagulopathy cont vent support / Lung protective strategy cont meds/ Ab titrate pressors OPtimize sedation/ analgesia maintain optimal lytes CT Brain pending f/u labs Prognosis Grave d/w housestaff critical care time 35 min
[2017-10-29 08:47] LABS: LYMPHOCYTE 5 % (20-40); MONOCYTE 6 % (0-10); NEUTROPHIL 50 % (50-75); NUCLEATED RED BLOOD CELL 3 % (0-0); REACTIVE LYMPHOCYTES 2 % (0-0); TOTAL CELLS COUNTED 100
[2017-10-29 08:48] LABS: METAMYELOCYTE 3 % (0-0); MYELOCYTE 6 % (0-0)
[2017-10-29 09:10] LABS: ANISOCYTOSIS SLIGHT; BANDS 28 % (0-2); PLATELET ESTIMATE DECREASED (NORMAL)
[2017-10-29 09:11] LABS: HYPOCHROMIC SLIGHT; POLYCHROMIC SLIGHT; TARGET CELLS SLIGHT
--- NOTE | 2017-10-29 09:20 | VASCLAB ---
PROCEDURE: Lower Extremity Venous Duplex Exam. HISTORY: concern for DVT? PRIORS: None. TECHNIQUE: Bilateral common femoral, femoral, popliteal and posterior tibial, peroneal and great saphenous veins were evaluated. Flow was assessed with color Doppler, compressibility, assessment of phasic flow and augmentation response. Report prepared by MERRITT Soto FINDINGS: RIGHT: 1. Common Femoral Vein: 1.1. Compressibility - N/A: Thrombus - : Flow - : Augmentation -: Reflux - . 2. Femoral Vein: 2.1. Compressibility - Fully compressible: Thrombus - None : Flow - Phasic: Augmentation -Normal: Reflux - None. 3. Popliteal Vein: 3.1. Compressibility - Fully compressible: Thrombus - None : Flow - Phasic: Augmentation -Normal: Reflux - None. 4. Posterior Tibial Vein: 4.1. Compressibility - Fully compressible: Thrombus - None: Flow - Phasic: Augmentation -Normal: Reflux - None. 5. Peroneal Vein: 5.1. Compressibility - Fully compressible: Thrombus - None: Flow - Phasic: Augmentation -Normal: Reflux - None. 6. Great Saphenous Vein: 6.1. Compressibility - Fully compressible: Thrombus - None: Flow - Phasic: Augmentation - Normal: Reflux - None. LEFT: 1. Common Femoral Vein: 1.1. Compressibility - Fully compressible: Thrombus - None: Flow - Phasic: Augmentation -Normal: Reflux - None. 2. Femoral Vein: 2.1. Compressibility - Fully compressible: Thrombus - None: Flow - Phasic: Augmentation -Normal: Reflux - None. 3. Popliteal Vein: 3.1. Compressibility - Fully compressible: Thrombus - None : Flow - Phasic: Augmentation -Normal: Reflux - None. 4. Posterior Tibial Vein: 4.1. Compressibility - Fully compressible: Thrombus - None: Flow - Phasic: Augmentation -Normal: Reflux - None. 5. Peroneal Vein: 5.1. Compressibility - Fully compressible: Thrombus - None: Flow - Phasic: Augmentation -Normal: Reflux - None. 6. Great Saphenous Vein: 6.1. Compressibility - Fully compressible: Thrombus - None: Flow - Phasic: Augmentation - Normal: Reflux - None. OTHER FINDINGS: Right: The common femoral vein was not visualized due to A-line in place. Left: None significant. IMPRESSION: Right: No evidence of deep or superficial vein thrombosis of the right lower extremity in those veins visualized. Normal valve function noted of the right side. Left: No evidence of deep or superficial vein thrombosis of the left lower extremity. Normal valve function noted of the left side.
[2017-10-29] MEDS: Multiple Vitamins Tab PO SCH (11:00)
--- NOTE | 2017-10-29 11:06 | CARD ---
APPROVED REPORT EXAM: Two-dimensional and M-mode echocardiogram with Doppler and color Doppler. Other Information Quality : [employer] : INDICATION CARDIAC ARREST 2D DIMENSIONS IVSd1.4 (0.7-1.1cm)LVDd2.5 (3.9-5.9cm) PWd1.4 (0.7-1.1cm)LVDs1.8 (2.5-4.0cm) FS (%) 25.7 %LVEF (%)52.8 (>50%) M-Mode DIMENSIONS Left Atrium (MM)3.59 (2.5-4.0cm)Aortic Root3.71 (2.2-3.7cm) Aortic Cusp Exc.2.06 (1.5-2.0cm) Mitral Valve MV E Wsayusvp12.9cm/sMV A Vexjozup22.5cm/sE/A ratio0.6 TDI E/Lateral E'0.0E/Medial E'0.0 Tricuspid Valve TR Peak [id number]/sTR Peak [id number] LEFT VENTRICLE The left ventricle is normal size. There is normal left ventricular wall thickness. The left ventricular function is normal. The left ventricular ejection fraction is within the normal range. There is a flattened septum consistent with right ventricle volume and pressure overload. The left ventricular diastolic function is normal. No left ventricle thrombus noted on this study. There is no ventricular septal defect visualized. There is no left ventricular aneurysm. There is no mass noted in the left ventricle. RIGHT VENTRICLE The right ventricle is mildly to moderately dilated. There is normal right ventricular wall thickness. Systolic function is mildly reduced. ATRIA The left atrium size is normal. The right atrium size is normal. The interatrial septum is intact with no evidence for an atrial septal defect. AORTIC VALVE The aortic valve is normal in structure and function. No aortic regurgitation is present. There is no aortic valvular stenosis. There is no aortic valvular vegetation. MITRAL VALVE The mitral valve is normal in structure and function. There is no evidence of mitral valve prolapse. There is no mitral valve stenosis. There is no mitral valve regurgitation noted. TRICUSPID VALVE The tricuspid valve is normal in structure and function. There is mild tricuspid regurgitation. Right ventricular systolic pressure is estimated at less than 30 mmHg. There is no tricuspid valve prolapse or vegetation. There is no tricuspid valve stenosis. PULMONIC VALVE The pulmonary valve is normal in structure and function. There is no pulmonic valvular regurgitation. There is no pulmonic valvular stenosis. GREAT VESSELS The aortic root is normal in size. The ascending aorta is normal in size. The pulmonary artery is normal. The IVC is normal in size and collapses >50% with inspiration. PERICARDIAL EFFUSION The pericardium appears normal. There is no pleural effusion. <Conclusion> The left ventricular function is normal. The left ventricular ejection fraction is within the normal range. There is a flattened septum consistent with right ventricle volume and pressure overload. The right ventricle is mildly to moderately dilated. Systolic function is mildly reduced.
[2017-10-29] MEDS: Vancomycin 1 gm/NS 200 ml 1 GM/200 ML BAG IVPB SCH (11:30)
[2017-10-29 11:38] LABS: INR 1.6; PROTHROMBIN TIME 17.7 SECONDS (9.7-12.2)
--- NOTE | 2017-10-29 12:29 | RAD ---
HISTORY: intubated COMPARISON: 10/28/2017 FINDINGS: LUNGS: Persistent extensive bilateral diffuse pulmonary opacity. No focal consolidation. Bilateral pneumonia versus pulmonary edema. PLEURA: No significant pleural effusion identified, no pneumothorax apparent. CARDIOVASCULAR: Normal heart size. Congestive change. ET tube, NG tube and right central venous infusion port unchanged grossly. OSSEOUS STRUCTURES: No significant abnormalities. VISUALIZED UPPER ABDOMEN: Normal. OTHER FINDINGS: None. IMPRESSION: Persistent diffuse bilateral pulmonary opacity suspicious for either bilateral pneumonia or pulmonary edema.
[2017-10-29] MEDS: Multiple Vitamins Oral Solution PO SCH (14:07)
--- NOTE | 2017-10-29 15:17 | CP.PCM.PN ---
Subjective - Date & Time of Evaluation Date of Evaluation: 10/29/17 Time of Evaluation: 15:00 - Subjective Subjective: Patient remains intubated at this time. Family member who was the patient's sister was at bedside and we spoke The patient's prognosis is poor. On 10/26 he had a CODE BLUE while in his room. He immediately recived CPR and intubation at time He remains on IV pressor medications and also IV abx. Objective - Vital Signs/Intake and Output Vital Signs (last 24 hours): Temp Pulse Resp BP Pulse Ox 98.5 F 90 24 113/74 96 10/29/17 12:00 10/29/17 14:02 10/29/17 14:02 10/29/17 14:02 10/29/17 14:02 Intake and Output: 10/29/17 10/29/17 06:59 18:59 Intake Total 978.8 1574.7 Output Total 1360 200 Balance -381.2 1374.7 - Medications Medications: Current Medications Albuterol/Ipratropium (Duoneb 3 Mg/0.5 Mg (3 Ml) Ud) 3 ml INH RQ6 LISA Last Admin: 10/29/17 14:08 Dose: 3 ml Ascorbic Acid (Vitamin C 500 Mg Tab) 500 mg PO DAILY LISA Last Admin: 10/29/17 10:56 Dose: 500 mg Donepezil HCl (Aricept) 10 mg PO HS LISA Last Admin: 10/28/17 21:09 Dose: 10 mg Famotidine (Pepcid) 20 mg PO DAILY LISA Last Admin: 10/29/17 10:56 Dose: 20 mg Folic Acid (Folic Acid) 1 mg PO DAILY LISA Last Admin: 10/29/17 10:56 Dose: 1 mg Hydrocortisone Sodium Succinate (Solu-Cortef) 50 mg IV Q6H LISA Last Admin: 10/29/17 13:21 Dose: 50 mg Metronidazole (Flagyl) 500 mg in 100 mls @ 100 mls/hr IVPB Q8H LISA PRN Reason: Protocol Last Admin: 10/29/17 14:33 Dose: 100 mls/hr Aztreonam 2 gm/ Sodium (Chloride) 100 mls @ 200 mls/hr IVPB Q8H LISA PRN Reason: Protocol Last Admin: 10/29/17 13:32 Dose: 200 mls/hr Vancomycin/Sodium Chloride (Vancomycin 1 Gm/Ns 200 Ml) 1 gm in 200 mls @ 133 mls/hr IVPB Q12H LISA PRN Reason: Protocol Stop: 11/01/17 00:31 Last Admin: 10/29/17 11:30 Dose: 133 mls/hr Norepinephrine Bitartrate 4 mg (/ Dextrose) 254 mls @ 15.24 mls/hr IV .[id number] PRN; Protocol; 4 MCG/MIN PRN Reason: TITRATE PER MD ORDER Last Admin: 10/29/17 14:02 Dose: 6 mcg/min, 22.86 mls/hr Midazolam HCl 100 mg/ Dextrose 100 mls @ 1.9 mls/hr IV .Q24H LISA; 0.02 MG/KG/HR PRN Reason: Protocol Last Titration: 10/29/17 08:04 Dose: 0.03 mg/kg/hr, 3.5 mls/hr Fentanyl Citrate 2,500 mcg/ (Sodium Chloride) 250 mls @ 19.05 mls/hr IV .Q13H8M PRN; 2 MCG/KG/HR PRN Reason: Protocol Last Admin: 10/29/17 13:08 Dose: 6 mcg/kg/hr, 57.15 mls/hr Insulin Aspart (Novolog) 0 unit SC Q6H LISA PRN Reason: Protocol Last Admin: 10/29/17 13:22 Dose: 2 units Lactulose (Enulose) 20 gm NG Q8H PRN PRN Reason: Constipation Moxifloxacin HCl (Avelox) 400 mg NG DAILY LISA PRN Reason: Protocol Stop: 10/31/17 10:01 Last Admin: 10/29/17 10:56 Dose: 400 mg Multivitamins (Hexavitamin) 1 tab PO DAILY [facility] Last Admin: 10/29/17 11:00 Dose: 1 tab Ondansetron HCl (Zofran Inj) 4 mg IVP Q6 PRN PRN Reason: Nausea/Vomiting Vitamin A (Vitamin A&D) 0 applic TP Q8 PRN PRN Reason: Dry skin Last Admin: 10/27/17 17:02 Dose: 1 applic Zinc Sulfate (Zinc Sulfate 220 Mg Cap) 220 mg PO DAILY LISA Last Admin: 10/29/17 10:56 Dose: 220 mg - Labs Labs: 10/29/17 06:28 10/29/17 06:23 PT 17.7 SECONDS (9.7-12.2) H 10/29/17 11:22 INR 1.6 10/29/17 11:22 APTT 25 SECONDS (21-34) 10/29/17 11:22 Assessment and Plan - Assessment and Plan (Free Text) Assessment: 1. Acute Respiratory failure on Ventilator 10/29: Remains intubated at this time. Currently not weaning at this time as he is on Versed and Fentanyl. Aspiration/ARDS/sepsis/rule out MO Worsening metastatic lung cancer/small cell stage 4 Today's chest x ray with ARDS/Pulmonary edema,multi focal pneumonia/pleural effusion He remains on Aztronam, Flagyl, Vancomycin and Avelox 2.Sepsis/Immunocompromised state secondary to chemo 10/29: The patient WBC is 17, large left shift as well as bandemia Fluids and Levophed He is on Aztreonam, Vancomycin, Flagyl, and also Avelox Cultures are negative past 48 hrs. 3. 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 NSTMI/Troponin came down EKG with T wave changes on anterior leads follow echo report Not a candidate for anticoag/MRI brain 09/06 with possible brain mets 5. Acute Pancreatitis (likely from metastatic spread), Improved 6. Neutropenia-resolved Secondary to chemotherapy 7.Tobacco use 8. History of Alzheimer's 9. History of Anxiety
--- NOTE | 2017-10-29 15:28 | CP.PCM.PN ---
Subjective - Date & Time of Evaluation Date of Evaluation: 10/29/17 Time of Evaluation: 15:26 - Subjective Subjective: F/U abd pain In ICU, on vent and pressors Prognosis grim. Tolerating NG feeds Objective - Vital Signs/Intake and Output Vital Signs (last 24 hours): Temp Pulse Resp BP Pulse Ox 98.5 F 90 24 113/74 96 10/29/17 12:00 10/29/17 14:02 10/29/17 14:02 10/29/17 14:02 10/29/17 14:02 Intake and Output: 10/29/17 10/29/17 06:59 18:59 Intake Total 978.8 1574.7 Output Total 1360 200 Balance -381.2 1374.7 - Medications Medications: Current Medications Albuterol/Ipratropium (Duoneb 3 Mg/0.5 Mg (3 Ml) Ud) 3 ml INH RQ6 [facility] Last Admin: 10/29/17 14:08 Dose: 3 ml Ascorbic Acid (Vitamin C 500 Mg Tab) 500 mg PO DAILY [facility] Last Admin: 10/29/17 10:56 Dose: 500 mg Donepezil HCl (Aricept) 10 mg PO HS [facility] Last Admin: 10/28/17 21:09 Dose: 10 mg Famotidine (Pepcid) 20 mg PO DAILY [facility] Last Admin: 10/29/17 10:56 Dose: 20 mg Folic Acid (Folic Acid) 1 mg PO DAILY [facility] Last Admin: 10/29/17 10:56 Dose: 1 mg Hydrocortisone Sodium Succinate (Solu-Cortef) 50 mg IV Q6H [facility] Last Admin: 10/29/17 13:21 Dose: 50 mg Metronidazole (Flagyl) 500 mg in 100 mls @ 100 mls/hr IVPB Q8H [facility] PRN Reason: Protocol Last Admin: 10/29/17 14:33 Dose: 100 mls/hr Aztreonam 2 gm/ Sodium (Chloride) 100 mls @ 200 mls/hr IVPB Q8H [facility] PRN Reason: Protocol Last Admin: 10/29/17 13:32 Dose: 200 mls/hr Vancomycin/Sodium Chloride (Vancomycin 1 Gm/Ns 200 Ml) 1 gm in 200 mls @ 133 mls/hr IVPB Q12H [facility] PRN Reason: Protocol Stop: 11/01/17 00:31 Last Admin: 10/29/17 11:30 Dose: 133 mls/hr Norepinephrine Bitartrate 4 mg (/ Dextrose) 254 mls @ 15.24 mls/hr IV .[id number] PRN; Protocol; 4 MCG/MIN PRN Reason: TITRATE PER MD ORDER Last Admin: 10/29/17 14:02 Dose: 6 mcg/min, 22.86 mls/hr Midazolam HCl 100 mg/ Dextrose 100 mls @ 1.9 mls/hr IV .Q24H [facility]; 0.02 MG/KG/HR PRN Reason: Protocol Last Titration: 10/29/17 08:04 Dose: 0.03 mg/kg/hr, 3.5 mls/hr Fentanyl Citrate 2,500 mcg/ (Sodium Chloride) 250 mls @ 19.05 mls/hr IV .Q13H8M PRN; 2 MCG/KG/HR PRN Reason: Protocol Last Admin: 10/29/17 13:08 Dose: 6 mcg/kg/hr, 57.15 mls/hr Insulin Aspart (Novolog) 0 unit SC Q6H [facility] PRN Reason: Protocol Last Admin: 10/29/17 13:22 Dose: 2 units Lactulose (Enulose) 20 gm NG Q8H PRN PRN Reason: Constipation Moxifloxacin HCl (Avelox) 400 mg NG DAILY [facility] PRN Reason: Protocol Stop: 10/31/17 10:01 Last Admin: 10/29/17 10:56 Dose: 400 mg Multivitamins (Hexavitamin) 1 tab PO DAILY [facility] Last Admin: 10/29/17 11:00 Dose: 1 tab Ondansetron HCl (Zofran Inj) 4 mg IVP Q6 PRN PRN Reason: Nausea/Vomiting Vitamin A (Vitamin A&D) 0 applic TP Q8 PRN PRN Reason: Dry skin Last Admin: 10/27/17 17:02 Dose: 1 applic Zinc Sulfate (Zinc Sulfate 220 Mg Cap) 220 mg PO DAILY [facility] Last Admin: 10/29/17 10:56 Dose: 220 mg - Labs Labs: 10/29/17 06:28 10/29/17 06:23 PT 17.7 SECONDS (9.7-12.2) H 10/29/17 11:22 INR 1.6 10/29/17 11:22 APTT 25 SECONDS (21-34) 10/29/17 11:22 - Constitutional Appears: Chronically Ill - Head Exam Head Exam: NORMOCEPHALIC - Respiratory Exam Respiratory Exam: Decreased Breath Sounds - Cardiovascular Exam Cardiovascular Exam: REGULAR RHYTHM - GI/Abdominal Exam GI & Abdominal Exam: Soft. absent: Tenderness Assessment and Plan (1) Cyst of pancreas Status: Acute (2) Small cell lung cancer Status: Acute (3) Metastatic cancer Status: Acute
--- NOTE | 2017-10-29 16:48 | CT ---
PROCEDURE: CT HEAD WITHOUT CONTRAST. HISTORY: concern for stroke COMPARISON: None available. TECHNIQUE: Axial computed tomography images were obtained through the head/brain without intravenous contrast. Radiation dose: Total exam DLP = 1174.21 mGy-cm. This CT exam was performed using one or more of the following dose reduction techniques: Automated exposure control, adjustment of the mA and/or kV according to patient size, and/or use of iterative reconstruction technique. FINDINGS: HEMORRHAGE: No intracranial hemorrhage. BRAIN: No mass effect or edema. No significant atrophy. Minimal chronic periventricular white matter lucency. No evidence of acute infarct. VENTRICLES: Unremarkable. No hydrocephalus. CALVARIUM: Unremarkable. PARANASAL SINUSES: Unremarkable as visualized. No significant inflammatory changes. MASTOID AIR CELLS: Unremarkable as visualized. No inflammatory changes. OTHER FINDINGS: None. IMPRESSION: No evidence of acute infarct. No intracranial mass or hemorrhage. Mild chronic white matter ischemic change. Otherwise unremarkable examination.
--- NOTE | 2017-10-29 18:37 | CT ---
PROCEDURE: CT chest abdomen pelvis dated 10/29/2017 HISTORY: Status post code blue, septic? COMPARISON: Comparison made with prior CT chest abdomen pelvis dated 10/20/2017 TECHNIQUE: Radiation dose: Total exam DLP = 2071.59 mGy-cm. This CT exam was performed using one or more of the following dose reduction techniques: Automated exposure control, adjustment of the mA and/or kV according to patient size, and/or use of iterative reconstruction technique. . FINDINGS: In situ endotracheal tube with tip in good position approximately 3.8 cm above joe. There is also in situ NGT present tip located in the distal stomach. CT CHEST WITHOUT CONTRAST: LUNGS: There has been interval development diffuse ground-glass and reticular nodular opacities throughout both lower lobes as well as of the upper lobes left greater than right. Findings may represent interval development of RDS. . . Previously noted peripheral -subpleural honeycombing/ fibrosis changes predominately located in the anterolateral aspect left upper lobe less well seen on this exam due to the aforementioned ground-glass and interstitial changes that have developed in the interval. Also less well seen is an area traction bronchiectasis in the right lung base which extend from the inferior hilar region inferolaterally to an area of localized chronic pleural thickening along the right and middle lobe region. . MEDIASTINUM: Heart remains enlarged. No significant pericardial effusion. At ascending thoracic aorta measures 3.4 cm and descending thoracic aorta measures 2.8 cm. Pulmonary trunk measures approximately 2.9 cm. LYMPH NODES: Multiple mediastinal lymph nodes are present the largest in the right paratracheal region at the level of the AP window measuring approximately 2.25 cm. Evaluation for hilar adenopathy/mass limited due to the lack of circulating intravenous contrast material. PLEURA: Very tiny right and trace left-sided effusion suspected. BONES: Mild multilevel degenerative spondylosis of the thoracic spine. There are no acute compression fractures no retropulsed fragments. No suspicious lytic or blastic lesions are identified. The The OTHER FINDINGS: None. CT ABDOMEN AND PELVIS: LIVER: Previously noted multiple relatively small rounded low-attenuation lesions scattered throughout the hepatic parenchyma consistent with metastatic disease poorly seen due to the lack of circulating intravenous contrast material. . GALLBLADDER AND BILE DUCTS: Gallbladder physiologically distended. No evidence of intraluminal gallbladder calculi. The PANCREAS: Previously noted elliptical shaped low-attenuation soft tissue mass density in the posterior body and tail of pancreas with central low attenuation (possibly representing cystic necrosis of degeneration) appears to have increased in size measuring approximately 6.4 x 4.9 cm in transverse and AP dimension. SPLEEN: Spleen exhibits normal size and attenuation pattern without mass collection or calcification. ADRENALS: There are no adrenal lesions seen. KIDNEYS AND URETERS: Multiple on varying sized cortical and exophytic cysts arising from the upper and mid pole left kidney again noted. VASCULATURE: Unremarkable. No aortic aneurysm. BOWEL: The evaluation of the bowel is limited the due to the lack of oral contrast material. There is Stomach is distended with liquid. Most of the loops of small bowel are relatively collapsed. . Previously noted dilatation an mural wall thickening of several loops of proximal jejunum and 3rd portion of the duodenum also less well seen on this study. Liquid stool is present throughout most of the colon although the colon is also relatively collapsed. Previously noted colitis may have improved. APPENDIX: Appendix is not seen with any certainty PERITONEUM: Elliptical shaped soft tissue mass density in the posterior aspect left posterior para renal space possibly representing extension of tumor. Surrounding infiltration changes are present Small fat containing umbilical hernia. Small fat containing bilateral inguinal hernias. LYMPH NODES: Right-sided retrocaval lymphadenopathy at the level of lobo hepatis again noted. BLADDER: Evaluation of the bladder is limited due to in situ unclamped Clay catheter. The urinary bladder is collapsed about the inflated Clay balloon with associated wall thickening likely due to collapse itself. . REPRODUCTIVE: Unremarkable BONES: Mild multilevel degenerative spondylosis of the lower thoracic and lumbar spine. No compression fractures no retropulsed fragments. OTHER FINDINGS: None. IMPRESSION: Multiple hepatic metastases poorly seen. Hypodense cystic mass within the posterior body -tail of pancreas appears have increased in size. Suspect extension of tumor into the left posterior para renal space. Multiple left renal cyst with few right renal cysts. . Evaluation of the bowel is somewhat limited the due to the lack of oral contrast material as well as relative collapse of most of the small bowel and large bowel. Previously noted suspected colitis cannot be adequately evaluated may have improved some degree.
[2017-10-29] MEDS: Midazolam 50 mg/10 ml 100 MG in Dextrose 5% In Water 80 ML IV SCH ×2 (19:45→22:33)
--- NOTE | 2017-10-29 20:03 | CARD ---
APPROVED REPORT EKG Measurement Heart [id number] <Conclusion> Sinus tachycardia with occasional premature ventricular complexes T wave abnormality, consider anterior ischemia Abnormal ECG
--- NOTE | 2017-10-29 20:34 | CP.PCM.PN ---
Subjective - Date & Time of Evaluation Date of Evaluation: 10/29/17 Time of Evaluation: 02:30 - Subjective Subjective: dictated Objective - Vital Signs/Intake and Output Vital Signs (last 24 hours): Temp Pulse Resp BP Pulse Ox 96.4 F L 105 H 11 L 95/64 L 99 10/29/17 20:00 10/29/17 20:00 10/29/17 20:00 10/29/17 20:00 10/29/17 20:00 Intake and Output: 10/29/17 10/30/17 18:59 06:59 Intake Total 2119.9 186.8 Output Total 800 15 Balance 1319.9 171.8 - Medications Medications: Current Medications Albuterol/Ipratropium (Duoneb 3 Mg/0.5 Mg (3 Ml) Ud) 3 ml INH RQ6 [facility] Last Admin: 10/29/17 19:57 Dose: 3 ml Ascorbic Acid (Vitamin C 500 Mg Tab) 500 mg PO DAILY [facility] Last Admin: 10/29/17 10:56 Dose: 500 mg Donepezil HCl (Aricept) 10 mg PO HS [facility] Last Admin: 10/28/17 21:09 Dose: 10 mg Famotidine (Pepcid) 20 mg PO DAILY [facility] Last Admin: 10/29/17 10:56 Dose: 20 mg Folic Acid (Folic Acid) 1 mg PO DAILY [facility] Last Admin: 10/29/17 10:56 Dose: 1 mg Hydrocortisone Sodium Succinate (Solu-Cortef) 50 mg IV Q6H [facility] Last Admin: 10/29/17 18:24 Dose: 50 mg Metronidazole (Flagyl) 500 mg in 100 mls @ 100 mls/hr IVPB Q8H [facility] PRN Reason: Protocol Last Admin: 10/29/17 14:33 Dose: 100 mls/hr Aztreonam 2 gm/ Sodium (Chloride) 100 mls @ 200 mls/hr IVPB Q8H [facility] PRN Reason: Protocol Last Admin: 10/29/17 13:32 Dose: 200 mls/hr Vancomycin/Sodium Chloride (Vancomycin 1 Gm/Ns 200 Ml) 1 gm in 200 mls @ 133 mls/hr IVPB Q12H [facility] PRN Reason: Protocol Stop: 11/01/17 00:31 Last Admin: 10/29/17 11:30 Dose: 133 mls/hr Norepinephrine Bitartrate 4 mg (/ Dextrose) 254 mls @ 15.24 mls/hr IV .[id number] PRN; Protocol; 4 MCG/MIN PRN Reason: TITRATE PER MD ORDER Last Admin: 10/29/17 14:02 Dose: 6 mcg/min, 22.86 mls/hr Midazolam HCl 100 mg/ Dextrose 100 mls @ 1.9 mls/hr IV .Q24H [facility]; 0.02 MG/KG/HR PRN Reason: Protocol Last Admin: 10/29/17 19:45 Dose: Not Given Fentanyl Citrate 2,500 mcg/ (Sodium Chloride) 250 mls @ 19.05 mls/hr IV .Q13H8M PRN; 2 MCG/KG/HR PRN Reason: Protocol Last Admin: 10/29/17 17:54 Dose: 6 mcg/kg/hr, 57.15 mls/hr Insulin Aspart (Novolog) 0 unit SC Q6H [facility] PRN Reason: Protocol Last Admin: 10/29/17 18:24 Dose: 2 units Lactulose (Enulose) 20 gm NG Q8H PRN PRN Reason: Constipation Moxifloxacin HCl (Avelox) 400 mg NG DAILY [facility] PRN Reason: Protocol Stop: 10/31/17 10:01 Last Admin: 10/29/17 10:56 Dose: 400 mg Multivitamins (Hexavitamin) 1 tab PO DAILY [facility] Last Admin: 10/29/17 11:00 Dose: 1 tab Ondansetron HCl (Zofran Inj) 4 mg IVP Q6 PRN PRN Reason: Nausea/Vomiting Vitamin A (Vitamin A&D) 0 applic TP Q8 PRN PRN Reason: Dry skin Last Admin: 10/27/17 17:02 Dose: 1 applic Zinc Sulfate (Zinc Sulfate 220 Mg Cap) 220 mg PO DAILY [facility] Last Admin: 10/29/17 10:56 Dose: 220 mg - Labs Labs: 10/29/17 06:28 10/29/17 06:23 PT 17.7 SECONDS (9.7-12.2) H 10/29/17 11:22 INR 1.6 10/29/17 11:22 APTT 25 SECONDS (21-34) 10/29/17 11:22
[2017-10-30] MEDS: Vancomycin 1 gm/NS 200 ml 1 GM/200 ML BAG IVPB SCH ×2 (00:19→13:29)
[2017-10-30] MEDS: (Novolog) Insulin Aspart, Recombinant 100 u/ml 10 ml vial SC SCH ×4 (00:19→17:56)
--- NOTE | 2017-10-30 02:06 | PN ---
DATE: 10/29/2017 SUBJECTIVE: Patient remains in ICU. He remains intubated. He was on 100% oxygen and still on Levophed, so he still remains on vasopressors. He was sedated. He remains on multiple antibiotics. His sister was at the bedside. He remains hypotensive. OBJECTIVE: VITAL SIGNS: T-max is 96.4, heart rate of 105, blood pressure is 95/64, respirations are on the vent. HEENT: Head is atraumatic. NECK: Supple. LUNGS: Clear. Occasional rhonchi. HEART: S1, S2 is tachycardic. ABDOMEN: Remains nontender but flabby. EXTREMITIES: Have no edema. ASSESSMENT AND PLAN: He is here. He remains with acute respiratory failure status post [employer], sepsis and he is immunocompromised and he has a white count of 17 with bandemia, also received one dose of Neupogen. He is on vancomycin, Flagyl, Avelox and Azactam as he is ALLERGIC TO PENICILLIN. Most of his cultures are negative. 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 We will continue antibiotics at this time. Cultures have been however negative. Juan Carlos Lomax MD
[2017-10-30] MEDS: Albuterol-Ipratrop 3 mg / 0.5 (3 ml) UD INH SCH ×4 (02:19→19:22)
[2017-10-30] MEDS: metroNIDAZOLE IV 500 mg/100 ml 500 MG/100 ML BAG IVPB SCH ×2 (05:46→14:24)
[2017-10-30] MEDS: Aztreonam 2 GM in Sodium Chloride 0.9% 100 ML IVPB SCH ×3 (05:47→22:30)
[2017-10-30 05:50] LABS: ABG ALLEN TEST POS; ARTERIAL BLOOD GAS HCO3 27.7 mmol/L (21-28); ARTERIAL BLOOD GAS HEMOGLOBIN 8.5 g/dL (11.7-17.4); ARTERIAL BLOOD GAS O2 SAT 94.8 % (95-98); ARTERIAL BLOOD GAS PCO2 63 mm/Hg (35-45); ARTERIAL BLOOD GAS PO2 63 mm/Hg (80-100); ARTERIAL BLOOD GAS TCO2 32.9 mmol/L (22-28)
[2017-10-30 06:44] LABS: BASO # 0.1 K/uL (0.0-0.2); BASO % 0.3 % (0.0-2.0); HEMOGLOBIN 8.1 g/dL (12.0-18.0)
[2017-10-30 07:04] LABS: EOS % 0.1 % (0.0-4.0); LYMPH # 1.7 K/uL (1.0-4.3); LYMPH % 7.4 % (20.0-40.0); MEAN CELL VOLUME 81.5 fL (80.0-94.0); MEAN CORPUSCULAR HEMOGLOBIN 27.5 pg (27.0-31.0); MEAN CORPUSCULAR HGB CONC 33.8 g/dL (33.0-37.0); MEAN PLATELET VOLUME 9.2 fL (7.2-11.7); MONO # 0.6 K/uL (0.0-0.8); MONO % 2.4 % (0.0-10.0); NEUT # 20.7 K/uL (1.8-7.0); NEUT % 89.8 % (50.0-75.0); NRBC % 1.3 % (0.0-2.0); RBC 2.94 Mil/uL (4.40-5.90); RED CELL DISTRIBUTION WIDTH 20.9 % (11.5-14.5); WHITE BLOOD COUNT 23.1 K/uL (4.8-10.8)
[2017-10-30 07:05] LABS: ALB/GLOB RATIO 0.7 (1.0-2.1); ALBUMIN 2.3 g/dL (3.5-5.0); CALCIUM 7.8 mg/dl (8.6-10.4)
[2017-10-30 07:08] LABS: PLATELET COUNT 26 K/uL (130-400)
--- NOTE | 2017-10-30 08:08 | CP.PCM.PN ---
Subjective - Date & Time of Evaluation Date of Evaluation: 10/30/17 Time of Evaluation: 07:30 - Subjective Subjective: /u abdom pain. Intubated. Above noted. No RB, melena, SZ, hematuria, hemoptysis, tremor, Objective - Vital Signs/Intake and Output Vital Signs (last 24 hours): Temp Pulse Resp BP Pulse Ox 98.8 F 117 H 16 125/71 91 L 10/30/17 04:00 10/30/17 06:00 10/30/17 06:00 10/30/17 06:00 10/30/17 06:00 Intake and Output: 10/30/17 10/30/17 06:59 18:59 Intake Total 2017.8 Output Total 215 Balance 1802.8 - Medications Medications: Current Medications Albuterol/Ipratropium (Duoneb 3 Mg/0.5 Mg (3 Ml) Ud) 3 ml INH RQ6 [facility] Last Admin: 10/30/17 07:46 Dose: 3 ml Ascorbic Acid (Vitamin C 500 Mg Tab) 500 mg PO DAILY [facility] Last Admin: 10/29/17 10:56 Dose: 500 mg Donepezil HCl (Aricept) 10 mg PO HS [facility] Last Admin: 10/29/17 21:08 Dose: 10 mg Famotidine (Pepcid) 20 mg PO DAILY [facility] Last Admin: 10/29/17 10:56 Dose: 20 mg Folic Acid (Folic Acid) 1 mg PO DAILY [facility] Last Admin: 10/29/17 10:56 Dose: 1 mg Hydrocortisone Sodium Succinate (Solu-Cortef) 50 mg IV Q6H [facility] Last Admin: 10/30/17 05:45 Dose: 50 mg Metronidazole (Flagyl) 500 mg in 100 mls @ 100 mls/hr IVPB Q8H [facility] PRN Reason: Protocol Last Admin: 10/30/17 05:46 Dose: 100 mls/hr Aztreonam 2 gm/ Sodium (Chloride) 100 mls @ 200 mls/hr IVPB Q8H [facility] PRN Reason: Protocol Last Admin: 10/30/17 05:47 Dose: 200 mls/hr Vancomycin/Sodium Chloride (Vancomycin 1 Gm/Ns 200 Ml) 1 gm in 200 mls @ 133 mls/hr IVPB Q12H [facility] PRN Reason: Protocol Stop: 11/01/17 00:31 Last Admin: 10/30/17 00:19 Dose: 133 mls/hr Norepinephrine Bitartrate 4 mg (/ Dextrose) 254 mls @ 15.24 mls/hr IV .[id number] PRN; Protocol; 4 MCG/MIN PRN Reason: TITRATE PER MD ORDER Last Titration: 10/29/17 23:30 Dose: 2 mcg/min, 7.62 mls/hr Fentanyl Citrate 2,500 mcg/ (Sodium Chloride) 250 mls @ 19.05 mls/hr IV .Q13H8M PRN; 2 MCG/KG/HR PRN Reason: Protocol Last Admin: 10/30/17 06:44 Dose: 5 mcg/kg/hr, 47.62 mls/hr Midazolam HCl 100 mg/ Dextrose 100 mls @ 1.9 mls/hr IV .Q24H LISA; 0.02 MG/KG/HR PRN Reason: Protocol Last Titration: 10/29/17 23:00 Dose: 0.03 mg/kg/hr, 2.85 mls/hr Insulin Aspart (Novolog) 0 unit SC Q6H [facility] PRN Reason: Protocol Last Admin: 10/30/17 05:46 Dose: 2 units Lactulose (Enulose) 20 gm NG Q8H PRN PRN Reason: Constipation Moxifloxacin HCl (Avelox) 400 mg NG DAILY [facility] PRN Reason: Protocol Stop: 10/31/17 10:01 Last Admin: 10/29/17 10:56 Dose: 400 mg Multivitamins (Hexavitamin) 1 tab PO DAILY [facility] Last Admin: 10/29/17 11:00 Dose: 1 tab Ondansetron HCl (Zofran Inj) 4 mg IVP Q6 PRN PRN Reason: Nausea/Vomiting Vitamin A (Vitamin A&D) 0 applic TP Q8 PRN PRN Reason: Dry skin Last Admin: 10/27/17 17:02 Dose: 1 applic Zinc Sulfate (Zinc Sulfate 220 Mg Cap) 220 mg PO DAILY [facility] Last Admin: 10/29/17 10:56 Dose: 220 mg - Labs Labs: 10/30/17 06:32 10/30/17 06:20 PT 17.7 SECONDS (9.7-12.2) H 10/29/17 11:22 INR 1.6 10/29/17 11:22 APTT 25 SECONDS (21-34) 10/29/17 11:22 - Constitutional Appears: Toxic - Respiratory Exam Respiratory Exam: Rhonchi - Cardiovascular Exam Cardiovascular Exam: REGULAR RHYTHM - GI/Abdominal Exam GI & Abdominal Exam: Distended - Extremities Exam Extremities Exam: Pedal Edema - Neurological Exam Neurological Exam: absent: Awake, Oriented x3 Assessment and Plan (1) Abdominal pain Assessment & Plan: metastatic dis, panc mass, GOO Status: Acute (2) Abnormal finding on CT scan Status: Acute (3) Renal metastasis Status: Acute (4) Small cell lung cancer Status: Acute (5) Abnormal LFTs Status: Acute (6) HTN (hypertension) Status: Acute (7) Liver metastases Assessment & Plan: prognosis poor Status: Acute (8) Pancreatitis Assessment & Plan: metastatic dis Status: Acute (9) Gastric outlet obstruction Status: Acute
--- NOTE | 2017-10-30 08:41 | CP.PCM.PN ---
Subjective - Date & Time of Evaluation Date of Evaluation: 10/30/17 Time of Evaluation: 08:20 - Subjective Subjective: Patient remains intubated Last night they tried to lower the fentanyl and versed and he became very agitated and uncomfortable Patient is having desaturations when they try to lower the FiO2 He remains on low dose IV pressor medications Today the platelet count continues to decrease. Objective - Vital Signs/Intake and Output Vital Signs (last 24 hours): Temp Pulse Resp BP Pulse Ox 98.9 F 106 H 24 103/67 99 10/30/17 08:00 10/30/17 08:01 10/30/17 08:01 10/30/17 08:01 10/30/17 08:01 Intake and Output: 10/30/17 10/30/17 06:59 18:59 Intake Total 2017.8 226.6 Output Total 215 5 Balance 1802.8 221.6 - Medications Medications: Current Medications Albuterol/Ipratropium (Duoneb 3 Mg/0.5 Mg (3 Ml) Ud) 3 ml INH RQ6 [facility] Last Admin: 10/30/17 07:46 Dose: 3 ml Ascorbic Acid (Vitamin C 500 Mg Tab) 500 mg PO DAILY [facility] Last Admin: 10/29/17 10:56 Dose: 500 mg Donepezil HCl (Aricept) 10 mg PO HS [facility] Last Admin: 10/29/17 21:08 Dose: 10 mg Famotidine (Pepcid) 20 mg PO DAILY [facility] Last Admin: 10/29/17 10:56 Dose: 20 mg Folic Acid (Folic Acid) 1 mg PO DAILY [facility] Last Admin: 10/29/17 10:56 Dose: 1 mg Hydrocortisone Sodium Succinate (Solu-Cortef) 50 mg IV Q6H [facility] Last Admin: 10/30/17 05:45 Dose: 50 mg Metronidazole (Flagyl) 500 mg in 100 mls @ 100 mls/hr IVPB Q8H [facility] PRN Reason: Protocol Last Admin: 10/30/17 05:46 Dose: 100 mls/hr Aztreonam 2 gm/ Sodium (Chloride) 100 mls @ 200 mls/hr IVPB Q8H [facility] PRN Reason: Protocol Last Admin: 10/30/17 05:47 Dose: 200 mls/hr Vancomycin/Sodium Chloride (Vancomycin 1 Gm/Ns 200 Ml) 1 gm in 200 mls @ 133 mls/hr IVPB Q12H [facility] PRN Reason: Protocol Stop: 11/01/17 00:31 Last Admin: 10/30/17 00:19 Dose: 133 mls/hr Norepinephrine Bitartrate 4 mg (/ Dextrose) 254 mls @ 15.24 mls/hr IV .[id number] PRN; Protocol; 4 MCG/MIN PRN Reason: TITRATE PER MD ORDER Last Titration: 10/29/17 23:30 Dose: 2 mcg/min, 7.62 mls/hr Fentanyl Citrate 2,500 mcg/ (Sodium Chloride) 250 mls @ 19.05 mls/hr IV .Q13H8M PRN; 2 MCG/KG/HR PRN Reason: Protocol Last Admin: 10/30/17 06:44 Dose: 5 mcg/kg/hr, 47.62 mls/hr Midazolam HCl 100 mg/ Dextrose 100 mls @ 1.9 mls/hr IV .Q24H [facility]; 0.02 MG/KG/HR PRN Reason: Protocol Last Titration: 10/29/17 23:00 Dose: 0.03 mg/kg/hr, 2.85 mls/hr Insulin Aspart (Novolog) 0 unit SC Q6H [facility] PRN Reason: Protocol Last Admin: 10/30/17 05:46 Dose: 2 units Lactulose (Enulose) 20 gm NG Q8H PRN PRN Reason: Constipation Moxifloxacin HCl (Avelox) 400 mg NG DAILY [facility] PRN Reason: Protocol Stop: 10/31/17 10:01 Last Admin: 10/29/17 10:56 Dose: 400 mg Multivitamins (Hexavitamin) 1 tab PO DAILY [facility] Last Admin: 10/29/17 11:00 Dose: 1 tab Ondansetron HCl (Zofran Inj) 4 mg IVP Q6 PRN PRN Reason: Nausea/Vomiting Vitamin A (Vitamin A&D) 0 applic TP Q8 PRN PRN Reason: Dry skin Last Admin: 10/27/17 17:02 Dose: 1 applic Zinc Sulfate (Zinc Sulfate 220 Mg Cap) 220 mg PO DAILY [facility] Last Admin: 10/29/17 10:56 Dose: 220 mg - Labs Labs: 10/30/17 06:32 10/30/17 06:20 PT 17.7 SECONDS (9.7-12.2) H 10/29/17 11:22 INR 1.6 10/29/17 11:22 APTT 25 SECONDS (21-34) 10/29/17 11:22 Assessment and Plan - Assessment and Plan (Free Text) Assessment: 1. Acute Respiratory failure on Ventilator 10/30: Remains on ventilator. I spoke with family member today since at this time prognosis is poor and it does not look like he will be able to successful be weaned from the ventilator. Patient's family member will be comming in today and discuss further with the ICU. Hopefully change code status to DNR or DNI. 10/29: Remains intubated at this time. Currently not weaning at this time as he is on Versed and Fentanyl. Aspiration/ARDS/sepsis/rule out [place] Worsening metastatic lung cancer/small cell stage 4 Today's chest x ray with ARDS/Pulmonary edema,multi focal pneumonia/pleural effusion He remains on Aztronam, Flagyl, Vancomycin and Avelox 2.Sepsis/Immunocompromised state secondary to chemo 10/30: WBC continue to be elevated. Large left shifts 10/29: The patient WBC is 17, large left shift as well as bandemia Fluids and Levophed He is on Aztreonam, Vancomycin, Flagyl, and also Avelox Cultures are negative past 48 hrs. 3. 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 NSTMI/Troponin came down EKG with T wave changes on anterior leads follow echo report Not a candidate for anticoag/MRI brain 09/06 with possible brain mets 5. Acute Pancreatitis (likely from metastatic spread) 6. Pancytopenia Secondary to chemotherapy 7.Tobacco use 8. History of Alzheimer's 9. History of Anxiety
[2017-10-30 09:03] LABS: BANDS 19 % (0-2); LYMPHOCYTE 7 % (20-40); MONOCYTE 7 % (0-10); MYELOCYTE 9 % (0-0); NEUTROPHIL 56 % (50-75); NUCLEATED RED BLOOD CELL 5 % (0-0); TOTAL CELLS COUNTED 100
[2017-10-30 09:04] LABS: METAMYELOCYTE 2 % (0-0); PLATELET ESTIMATE MARKEDLY DECREASED (NORMAL)
[2017-10-30 09:05] LABS: ANISOCYTOSIS SLIGHT; HYPOCHROMIC SLIGHT
[2017-10-30 09:06] LABS: POLYCHROMIC SLIGHT; TARGET CELLS SLIGHT
[2017-10-30 09:07] LABS: SCHISTOCYTES SLIGHT
[2017-10-30] MEDS: Multiple Vitamins Tab PO SCH (09:20)
--- NOTE | 2017-10-30 12:06 | RAD ---
HISTORY: Intubated. COMPARISON: Multiple serial examinations preceding the most recent study: October 29, 2017. FINDINGS: LUNGS: Persistent pulmonary edema without appreciable interval change. PLEURA: No significant pleural effusion identified, no pneumothorax apparent. CARDIOVASCULAR: Cardiomegaly. Venous access catheter in stable, satisfactory position. OSSEOUS STRUCTURES: No significant abnormalities. VISUALIZED UPPER ABDOMEN: Normal. OTHER FINDINGS: Angora has satisfactory position of support apparatus including endotracheal tube and nasogastric tube. IMPRESSION: Stable pulmonary edema. Stable position of support apparatus.
--- NOTE | 2017-10-30 12:06 | CP.CCUPN ---
<Becka Ta - Last Filed: 10/30/17 11:57> CCU Subjective - Physician Review Subjective (Free Text): Patient seen and examined at bedside. Patient is intubated and sedated on fentanyl and versed. CCU Objective - Vital Signs / Intake & Output Vital Signs (Last 4 hours): Vital Signs Temp Pulse Resp BP Pulse Ox 10/30/17 11:00 111 H 26 H 104/74 95 10/30/17 10:00 111 H 13 102/75 95 10/30/17 09:00 107 H 13 100/76 93 L 10/30/17 08:01 106 H 24 103/67 99 10/30/17 08:00 98.9 F 107 H 24 98 Intake and Output (Last 8hrs): Intake & Output 10/29/17 10/30/17 10/30/17 22:59 06:59 14:59 Intake Total 1466.6 1096.4 621.5 Output Total 655 160 20 Balance 811.6 936.4 601.5 Intake: IV 618 355 Intake, IV Amount 733.6 666.4 291.5 Right Distal Port Femoral 200 200 Right Medial Port Femoral 129.0 60.0 37.5 Right Port-A-Cath 381.1 382.4 239.0 Right Proximal Port 23.5 24 15 Femoral Tube Feeding 115 75 200 Other 130 Output: Urine 655 160 20 Urethral (Clay) 655 160 20 Emesis 0 Other: # Bowel Movements 0 - Physical Exam Head: Positive for: Atraumatic, Normocephalic Pupils: Positive for: PERRL Extroacular Muscles: Positive for: EOMI Conjunctiva: Positive for: Normal Mouth: Positive for: Dry, Other (INTUBATED) Nose (External): Positive for: Other (NGT in place) Respiratory/Chest: Positive for: Decreased Breath Sounds Cardiovascular: Positive for: Tachycardic Abdomen: Positive for: Normal Bowel Sounds. Negative for: Tenderness, Distention Upper Extremity: Positive for: Normal Inspection, NORMAL PULSES, Neurovascularly Intact, Capillary Refill < 2s Lower Extremity: Positive for: Normal Inspection, NORMAL PULSES, Neurovascularly Intact, Capillary Refill < 2 s Skin: Positive for: Warm, Dry, Normal Color Psychiatric: Positive for: Alert - Medications Active Medications: Active Medications Generic Name Dose Route Start Last Admin Trade Name Freq PRN Reason Stop Dose Admin Albuterol/Ipratropium 3 ml 10/26/17 20:00 10/30/17 07:46 Duoneb 3 Mg/0.5 Mg (3 Ml) Ud INH 3 ml RQ6 LISA Administration Ascorbic Acid 500 mg 10/28/17 11:00 10/30/17 09:20 Vitamin C 500 Mg Tab PO 500 mg DAILY LISA Administration Donepezil HCl 10 mg 10/20/17 22:00 10/29/17 21:08 Aricept PO 10 mg HS LISA Administration Famotidine 20 mg 10/22/17 10:00 10/30/17 09:20 Pepcid PO 20 mg DAILY LISA Administration Folic Acid 1 mg 10/28/17 11:00 10/30/17 09:20 Folic Acid PO 1 mg DAILY LISA Administration Hydrocortisone Sodium Succinate 50 mg 10/28/17 18:30 10/30/17 05:45 Solu-Cortef IV 50 mg Q6H LISA Administration Metronidazole 500 mg in 100 mls @ 100 mls/hr 10/20/17 22:00 10/30/17 05:46 Flagyl IVPB 100 mls/hr Q8H LISA Administration Protocol Aztreonam 2 gm/ Sodium 100 mls @ 200 mls/hr 10/20/17 22:30 10/30/17 05:47 Chloride IVPB 200 mls/hr Q8H LISA Administration Protocol Vancomycin/Sodium Chloride 1 gm in 200 mls @ 133 mls/hr 10/27/17 00:30 00:19 Vancomycin 1 Gm/Ns 200 Ml IVPB 11/01/17 00:31 133 mls/hr Q12H LISA Administration Protocol Norepinephrine Bitartrate 4 mg 254 mls @ 15.24 mls/hr 10/27/17 08:30 23:30 / Dextrose IV 2 mcg/min .[id number] PRN 7.62 mls/hr TITRATE PER MD ORDER Titration Protocol 4 MCG/MIN Fentanyl Citrate 2,500 mcg/ 250 mls @ 19.05 mls/hr 10/28/17 20:30 10/30/17 06 :44 Sodium Chloride IV 5 mcg/kg/hr .[id number] PRN 47.62 mls/hr Protocol Administration 2 MCG/KG/HR Midazolam HCl 100 mg/ Dextrose 100 mls @ 1.9 mls/hr 10/29/17 22:15 10/29/17 23:00 IV 0.03 mg/kg/hr .Q24H LISA 2.85 mls/hr Protocol Titration 0.02 MG/KG/HR Insulin Aspart 0 unit 10/28/17 18:30 10/30/17 05:46 Novolog SC 2 units Q6H LISA Administration Protocol Lactulose 20 gm 10/28/17 10:57 Enulose NG Q8H PRN Constipation Moxifloxacin HCl 400 mg 10/28/17 10:45 10/30/17 09:19 Avelox NG 10/31/17 10:01 400 mg DAILY LISA Administration Protocol Multivitamins 1 tab 10/29/17 11:00 10/30/17 09:20 Hexavitamin PO 1 tab DAILY LISA Administration Ondansetron HCl 4 mg 10/20/17 18:06 Zofran Inj IVP Q6 PRN Nausea/Vomiting Vitamin A 0 applic 10/27/17 12:09 10/27/17 17:02 Vitamin A&D TP 1 applic Q8 PRN Administration Dry skin Zinc Sulfate 220 mg 10/28/17 11:00 10/30/17 09:20 Zinc Sulfate 220 Mg Cap PO 220 mg DAILY LISA Administration - Patient Studies Lab Studies: Microbiology Studies 10/27/17 10:41 Blood Culture - Preliminary Blood-Venous NO GROWTH AFTER 3 DAYS 10/27/17 09:15 Blood Culture - Preliminary Blood-Venous NO GROWTH AFTER 3 DAYS 10/27/17 10:41 Gram Stain - Final Trachasp Sputum Culture - Final NORMAL ORAL [place] Lab Studies 10/30/17 10/30/17 10/30/17 Range/Units 06:32 06:20 05:17 WBC 23.1 H (4.8-10.8) K/uL RBC 2.94 L (4.40-5.90) Mil/uL Hgb 8.1 L (12.0-18.0) g/dL Hct 24.0 L (35.0-51.0) % MCV 81.5 (80.0-94.0) fL MCH 27.5 (27.0-31.0) pg MCHC 33.8 (33.0-37.0) g/dL RDW 20.9 H (11.5-14.5) % Plt Count 26 L* D (130-400) K/uL MPV 9.2 (7.2-11.7) fL Neut % (Auto) 89.8 H (50.0-75.0) % Lymph % (Auto) 7.4 L (20.0-40.0) % [place] % (Auto) 2.4 (0.0-10.0) % Eos % (Auto) 0.1 (0.0-4.0) % Baso % (Auto) 0.3 (0.0-2.0) % Neut # (Auto) 20.7 H (1.8-7.0) K/uL Lymph # (Auto) 1.7 (1.0-4.3) K/uL [place] # (Auto) 0.6 (0.0-0.8) K/uL Eos # (Auto) 0.0 (0.0-0.7) K/uL Baso # (Auto) 0.1 (0.0-0.2) K/uL Neutrophils % (Manual) 56 (50-75) % Band Neutrophils % 19 H* (0-2) % Lymphocytes % (Manual) 7 L (20-40) % Monocytes % (Manual) 7 (0-10) % Metamyelocytes % 2 H (0-0) % Myelocytes % 9 H (0-0) % Nucleated RBC % 5 H (0-0) % Platelet Estimate Markedly decreased L (NORMAL) Polychromasia Slight Hypochromasia (manual) Slight Anisocytosis (manual) Slight Target Cells Slight Schistocytes Slight Fibrinogen (200-400) mg/dL Puncture Site R rad pCO2 63 H (35-45) mm/Hg pO2 63 L (80-100) mm/Hg HCO3 27.7 (21-28) mmol/L ABG pH 7.30 L (7.35-7.45) ABG Total CO2 32.9 H (22-28) mmol/L ABG O2 Saturation 94.8 L (95-98) % ABG Base Excess 3.7 H (-2.0-3.0) mmol/L ABG Hemoglobin 8.5 L (11.7-17.4) g/dL ABG Carboxyhemoglobin 3.3 H (0.5-1.5) % POC ABG HHb (Measured) 5.0 (0.0-5.0) % ABG Methemoglobin 1.0 (0.0-3.0) % Jt Test Pos A-a O2 Difference 571.0 mm/Hg Respiratory Index 9.1 Hgb O2 Saturation 90.7 L (95.0-98.0) % Vent Mode Prvc Mechanical Rate 24 FiO2 100.0 % Tidal Volume 550 PEEP 8 Sodium 150 H (132-148) mmol/L Potassium 4.7 (3.6-5.2) mmol/L Chloride 112 H (98-107) mmol/L Carbon Dioxide 33 H (22-30) mmol/L Anion Gap 10 (10-20) BUN 52 H (9-20) mg/dL Creatinine 1.6 H (0.8-1.5) mg/dL Est GFR ( Amer) 53 Est GFR (Non-Af Amer) 44 POC Glucose (mg/dL) (65-110) mg/dL Random Glucose 145 H (75-110) mg/dL Calcium 7.8 L (8.6-10.4) mg/dl Phosphorus 3.5 (2.5-4.5) mg/dL Magnesium 2.3 (1.6-2.3) mg/dL Total Bilirubin 3.8 H (0.2-1.3) mg/dL AST 70 H D (17-59) U/L ALT 42 (21-72) U/L Alkaline Phosphatase 376 H (38-126) U/L Total Protein 5.6 L (6.3-8.3) g/dL Albumin 2.3 L (3.5-5.0) g/dL Globulin 3.3 (2.2-3.9) gm/dL Albumin/Globulin Ratio 0.7 L (1.0-2.1) 10/30/17 10/30/17 10/29/17 Range/Units 05:05 00:14 17:38 WBC (4.8-10.8) K/uL RBC (4.40-5.90) Mil/uL Hgb (12.0-18.0) g/dL Hct (35.0-51.0) % MCV (80.0-94.0) fL MCH (27.0-31.0) pg MCHC (33.0-37.0) g/dL RDW (11.5-14.5) % Plt Count (130-400) K/uL MPV (7.2-11.7) fL Neut % (Auto) (50.0-75.0) % Lymph % (Auto) (20.0-40.0) % [place] % (Auto) (0.0-10.0) % Eos % (Auto) (0.0-4.0) % Baso % (Auto) (0.0-2.0) % Neut # (Auto) (1.8-7.0) K/uL Lymph # (Auto) (1.0-4.3) K/uL [place] # (Auto) (0.0-0.8) K/uL Eos # (Auto) (0.0-0.7) K/uL Baso # (Auto) (0.0-0.2) K/uL Neutrophils % (Manual) (50-75) % Band Neutrophils % (0-2) % Lymphocytes % (Manual) (20-40) % Monocytes % (Manual) (0-10) % Metamyelocytes % (0-0) % Myelocytes % (0-0) % Nucleated RBC % (0-0) % Platelet Estimate (NORMAL) Polychromasia Hypochromasia (manual) Anisocytosis (manual) Target Cells Schistocytes Fibrinogen (200-400) mg/dL Puncture Site pCO2 (35-45) mm/Hg pO2 (80-100) mm/Hg HCO3 (21-28) mmol/L ABG pH (7.35-7.45) ABG Total CO2 (22-28) mmol/L ABG O2 Saturation (95-98) % ABG Base Excess (-2.0-3.0) mmol/L ABG Hemoglobin (11.7-17.4) g/dL ABG Carboxyhemoglobin (0.5-1.5) % POC ABG HHb (Measured) (0.0-5.0) % ABG Methemoglobin (0.0-3.0) % Jt Test A-a O2 Difference mm/Hg Respiratory Index Hgb O2 Saturation (95.0-98.0) % Vent Mode Mechanical Rate FiO2 % Tidal Volume PEEP Sodium (132-148) mmol/L Potassium (3.6-5.2) mmol/L Chloride (98-107) mmol/L Carbon Dioxide (22-30) mmol/L Anion Gap (10-20) BUN (9-20) mg/dL Creatinine (0.8-1.5) mg/dL Est GFR ( Amer) Est GFR (Non-Af Amer) POC Glucose (mg/dL) 164 H 170 H 156 H (65-110) mg/dL Random Glucose (75-110) mg/dL Calcium (8.6-10.4) mg/dl Phosphorus (2.5-4.5) mg/dL Magnesium (1.6-2.3) mg/dL Total Bilirubin (0.2-1.3) mg/dL AST (17-59) U/L ALT (21-72) U/L Alkaline Phosphatase (38-126) U/L Total Protein (6.3-8.3) g/dL Albumin (3.5-5.0) g/dL Globulin (2.2-3.9) gm/dL Albumin/Globulin Ratio (1.0-2.1) 10/29/17 10/29/17 Range/Units 11:55 11:22 WBC (4.8-10.8) K/uL RBC (4.40-5.90) Mil/uL Hgb (12.0-18.0) g/dL Hct (35.0-51.0) % MCV (80.0-94.0) fL MCH (27.0-31.0) pg MCHC (33.0-37.0) g/dL RDW (11.5-14.5) % Plt Count (130-400) K/uL MPV (7.2-11.7) fL Neut % (Auto) (50.0-75.0) % Lymph % (Auto) (20.0-40.0) % [place] % (Auto) (0.0-10.0) % Eos % (Auto) (0.0-4.0) % Baso % (Auto) (0.0-2.0) % Neut # (Auto) (1.8-7.0) K/uL Lymph # (Auto) (1.0-4.3) K/uL [place] # (Auto) (0.0-0.8) K/uL Eos # (Auto) (0.0-0.7) K/uL Baso # (Auto) (0.0-0.2) K/uL Neutrophils % (Manual) (50-75) % Band Neutrophils % (0-2) % Lymphocytes % (Manual) (20-40) % Monocytes % (Manual) (0-10) % Metamyelocytes % (0-0) % Myelocytes % (0-0) % Nucleated RBC % (0-0) % Platelet Estimate (NORMAL) Polychromasia Hypochromasia (manual) Anisocytosis (manual) Target Cells Schistocytes Fibrinogen 367 (200-400) mg/dL Puncture Site pCO2 (35-45) mm/Hg pO2 (80-100) mm/Hg HCO3 (21-28) mmol/L ABG pH (7.35-7.45) ABG Total CO2 (22-28) mmol/L ABG O2 Saturation (95-98) % ABG Base Excess (-2.0-3.0) mmol/L ABG Hemoglobin (11.7-17.4) g/dL ABG Carboxyhemoglobin (0.5-1.5) % POC ABG HHb (Measured) (0.0-5.0) % ABG Methemoglobin (0.0-3.0) % Jt Test A-a O2 Difference mm/Hg Respiratory Index Hgb O2 Saturation (95.0-98.0) % Vent Mode Mechanical Rate FiO2 % Tidal Volume PEEP Sodium (132-148) mmol/L Potassium (3.6-5.2) mmol/L Chloride (98-107) mmol/L Carbon Dioxide (22-30) mmol/L Anion Gap (10-20) BUN (9-20) mg/dL Creatinine (0.8-1.5) mg/dL Est GFR ( Amer) Est GFR (Non-Af Amer) POC Glucose (mg/dL) 172 H (65-110) mg/dL Random Glucose (75-110) mg/dL Calcium (8.6-10.4) mg/dl Phosphorus (2.5-4.5) mg/dL Magnesium (1.6-2.3) mg/dL Total Bilirubin (0.2-1.3) mg/dL AST (17-59) U/L ALT (21-72) U/L Alkaline Phosphatase (38-126) U/L Total Protein (6.3-8.3) g/dL Albumin (3.5-5.0) g/dL Globulin (2.2-3.9) gm/dL Albumin/Globulin Ratio (1.0-2.1) Laboratory Results - last 24 hr 10/29/17 10/29/17 10/29/17 11:22 11:55 17:38 WBC RBC Hgb Hct MCV MCH MCHC RDW Plt Count MPV Neut % (Auto) Lymph % (Auto) [place] % (Auto) Eos % (Auto) Baso % (Auto) Neut # (Auto) Lymph # (Auto) [place] # (Auto) Eos # (Auto) Baso # (Auto) Neutrophils % (Manual) Band Neutrophils % Lymphocytes % (Manual) Monocytes % (Manual) Metamyelocytes % Myelocytes % Nucleated RBC % Platelet Estimate Polychromasia Hypochromasia (manual) Anisocytosis (manual) Target Cells Schistocytes Fibrinogen 367 Puncture Site pCO2 pO2 HCO3 ABG pH ABG Total CO2 ABG O2 Saturation ABG Base Excess ABG Hemoglobin ABG Carboxyhemoglobin POC ABG HHb (Measured) ABG Methemoglobin Jt Test A-a O2 Difference Respiratory Index Hgb O2 Saturation Vent Mode Mechanical Rate FiO2 Tidal Volume PEEP Sodium Potassium Chloride Carbon Dioxide Anion Gap BUN Creatinine Est GFR ( Amer) Est GFR (Non-Af Amer) POC Glucose (mg/dL) 172 H 156 H Random Glucose Calcium Phosphorus Magnesium Total Bilirubin AST ALT Alkaline Phosphatase Total Protein Albumin Globulin Albumin/Globulin Ratio 10/30/17 10/30/17 10/30/17 00:14 05:05 05:17 WBC RBC Hgb Hct MCV MCH MCHC RDW Plt Count MPV Neut % (Auto) Lymph % (Auto) [place] % (Auto) Eos % (Auto) Baso % (Auto) Neut # (Auto) Lymph # (Auto) [place] # (Auto) Eos # (Auto) Baso # (Auto) Neutrophils % (Manual) Band Neutrophils % Lymphocytes % (Manual) Monocytes % (Manual) Metamyelocytes % Myelocytes % Nucleated RBC % Platelet Estimate Polychromasia Hypochromasia (manual) Anisocytosis (manual) Target Cells Schistocytes Fibrinogen Puncture Site R rad pCO2 63 H pO2 63 L HCO3 27.7 ABG pH 7.30 L ABG Total CO2 32.9 H ABG O2 Saturation 94.8 L ABG Base Excess 3.7 H ABG Hemoglobin 8.5 L ABG Carboxyhemoglobin 3.3 H POC ABG HHb (Measured) 5.0 ABG Methemoglobin 1.0 Jt Test Pos A-a O2 Difference 571.0 Respiratory Index 9.1 Hgb O2 Saturation 90.7 L Vent Mode Prvc Mechanical Rate 24 FiO2 100.0 Tidal Volume 550 PEEP 8 Sodium Potassium Chloride Carbon Dioxide Anion Gap BUN Creatinine Est GFR ( Amer) Est GFR (Non-Af Amer) POC Glucose (mg/dL) 170 H 164 H Random Glucose Calcium Phosphorus Magnesium Total Bilirubin AST ALT Alkaline Phosphatase Total Protein Albumin Globulin Albumin/Globulin Ratio 10/30/17 10/30/17 06:20 06:32 WBC 23.1 H RBC 2.94 L Hgb 8.1 L Hct 24.0 L MCV 81.5 MCH 27.5 MCHC 33.8 RDW 20.9 H Plt Count 26 L* D MPV 9.2 Neut % (Auto) 89.8 H Lymph % (Auto) 7.4 L [place] % (Auto) 2.4 Eos % (Auto) 0.1 Baso % (Auto) 0.3 Neut # (Auto) 20.7 H Lymph # (Auto) 1.7 [place] # (Auto) 0.6 Eos # (Auto) 0.0 Baso # (Auto) 0.1 Neutrophils % (Manual) 56 Band Neutrophils % 19 H* Lymphocytes % (Manual) 7 L Monocytes % (Manual) 7 Metamyelocytes % 2 H Myelocytes % 9 H Nucleated RBC % 5 H Platelet Estimate Markedly decreased L Polychromasia Slight Hypochromasia (manual) Slight Anisocytosis (manual) Slight Target Cells Slight Schistocytes Slight Fibrinogen Puncture Site pCO2 pO2 HCO3 ABG pH ABG Total CO2 ABG O2 Saturation ABG Base Excess ABG Hemoglobin ABG Carboxyhemoglobin POC ABG HHb (Measured) ABG Methemoglobin Jt Test A-a O2 Difference Respiratory Index Hgb O2 Saturation Vent Mode Mechanical Rate FiO2 Tidal Volume PEEP Sodium 150 H Potassium 4.7 Chloride 112 H Carbon Dioxide 33 H Anion Gap 10 BUN 52 H Creatinine 1.6 H Est GFR ( Amer) 53 Est GFR (Non-Af Amer) 44 POC Glucose (mg/dL) Random Glucose 145 H Calcium 7.8 L Phosphorus 3.5 Magnesium 2.3 Total Bilirubin 3.8 H AST 70 H D ALT 42 Alkaline Phosphatase 376 H Total Protein 5.6 L Albumin 2.3 L Globulin 3.3 Albumin/Globulin Ratio 0.7 L Fingerstick Blood Sugar Results: 156 Critical Care Progress Note - Nutrition Nutrition: Nutrition Category Date Time Status NPO Diet [DIET] Diets 10/27/17 Lunch Active Assessment/Plan - Assessment and Plan (Free Text) Assessment: This is a 62 year old male with PMHx of Anxiety, Alzhiemer's, HTN, 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 Patient is s/p code blue - 1 round epi, 1 bolus Amio, intubated- 10/26. Admitted to the ICU for NSTEMI, Septic shock, ANDRES with metabolic acidosis, Hypoxic and Hypercapneic respiratory failure ARDS vs PE?, currently intubated on levo. Plan: Neuro: GCS 7T Intubated, versed and fentanyl A: AMS - Head CT: negative for any acute bleed A: Alzhiemer's - Aricept Cardio: A: S/P Cardiac Arrest A: HTN - On levo Pulm: A: Hypoxic and Hypercapneic Respiratory Failure - Suspected ARDS versus PE - Intubated on PRVC - ECHO LVEF 53%, flattened septum consistent with RV volume and pressure overload. - CT chest/ ab/pelvis: confirms mets Heme/Onc: A: Stage IV Small Cell Lung Cancer - Liver, kidney, brain mets, and now pancreatic metastasis A: Anemia of Chronic Disease - 2/2 Malignancy A: Pancytopenia - 2/2 Malignancy Renal: A: Metabolic Acidosis resolved - Bicarb drip DC'd ID: A: Sepsis? - Likely reactive response 2/2 cardiac arrest - Leukocytosis, bandemia, lactate 4.0 -> 2.1 -> 1,3 - Started on Aztreonam (10/20), Doxy (10/27), Flagyl (10/20), Vanco Q12 (10/27), Avelox 10/27 - Lambert cultures - negative to date A: Aspiration Pneumonia - Started on Aztreonam (10/20), Flagyl (10/20), Vanco Q12 (10/27), Avelox 10/27 Prophylaxis: - Pepcid daily - SCDs - Lines: Right Fem TLC - 10/27 - Right permacath - Prognosis guarded - Started NGT feeds Disposition: Patient is full code. Will speak to palliative to speak to family to determine goals of care, given poor prognosis. Plan for family meeting . Becka Carpio Dr., DO, PGY-1 <Napoleon Bueno - Last Filed: 10/30/17 18:23> CCU Objective - Vital Signs / Intake & Output Vital Signs (Last 4 hours): Vital Signs Pulse Resp BP Pulse Ox 10/30/17 15:01 114 H 14 105/58 L 97 10/30/17 15:00 116 H 14 96 10/30/17 14:23 113 H 11 L 111/67 100 10/30/17 14:22 111/67 Intake and Output (Last 8hrs): Intake & Output 10/30/17 10/30/17 10/30/17 06:59 14:59 22:59 Intake Total 1096.4 1031.4 746.6 Output Total 160 25 10 Balance 936.4 1006.4 736.6 Intake: IV 355 115 250 Intake, IV Amount 666.4 466.4 416.6 Right Distal Port Femoral 200 100 Right Medial Port Femoral 60.0 60.0 15.0 Right Port-A-Cath 382.4 382.4 95.6 Right Proximal Port 24 24 6 Femoral Right Wrist 200 Tube Feeding 75 320 80 Other 130 Output: Urine 160 25 10 Urethral (Clay) 160 25 10 Emesis 0 Other: # Bowel Movements 0 - Medications Active Medications: Active Medications Generic Name Dose Route Start Last Admin Trade Name Freq PRN Reason Stop Dose Admin Albuterol/Ipratropium 3 ml 10/26/17 20:00 10/30/17 07:46 Duoneb 3 Mg/0.5 Mg (3 Ml) Ud INH 3 ml RQ6 LISA Administration Ascorbic Acid 500 mg 10/28/17 11:00 10/30/17 09:20 Vitamin C 500 Mg Tab PO 500 mg DAILY LISA Administration Famotidine 20 mg 10/22/17 10:00 10/30/17 09:20 Pepcid PO 20 mg DAILY LISA Administration Hydrocortisone Sodium Succinate 50 mg 10/28/17 18:30 10/30/17 17:55 Solu-Cortef IV 50 mg Q6H LISA Administration Aztreonam 2 gm/ Sodium 100 mls @ 200 mls/hr 10/20/17 22:30 10/30/17 15:32 Chloride IVPB 200 mls/hr Q8H LISA Administration Protocol Norepinephrine Bitartrate 4 mg 254 mls @ 15.24 mls/hr 10/27/17 08:30 14:22 / Dextrose IV 2 mcg/min .[id number] PRN 7.62 mls/hr TITRATE PER MD ORDER Administration Protocol 4 MCG/MIN Fentanyl Citrate 2,500 mcg/ 250 mls @ 19.05 mls/hr 10/28/17 20:30 10/30/17 18 :14 Sodium Chloride IV 5 mcg/kg/hr .[id number] PRN 47.62 mls/hr Protocol Administration 2 MCG/KG/HR Midazolam HCl 100 mg/ Dextrose 100 mls @ 1.9 mls/hr 10/29/17 22:15 10/29/17 23:00 IV 0.03 mg/kg/hr .Q24H LISA 2.85 mls/hr Protocol Titration 0.02 MG/KG/HR Vancomycin/Sodium Chloride 1 gm in 200 mls @ 133 mls/hr 10/31/17 10:00 Vancomycin 1 Gm/Ns 200 Ml IVPB 11/05/17 10:01 DAILY [facility] Protocol Insulin Aspart 0 unit 10/28/17 18:30 10/30/17 17:56 Novolog SC 2 units Q6H LISA Administration Protocol Lactulose 20 gm 10/28/17 10:57 Enulose NG Q8H PRN Constipation Moxifloxacin HCl 400 mg 10/28/17 10:45 10/30/17 09:19 Avelox NG 10/31/17 10:01 400 mg DAILY LISA Administration Protocol Ondansetron HCl 4 mg 10/20/17 18:06 Zofran Inj IVP Q6 PRN Nausea/Vomiting Vitamin A 0 applic 10/27/17 12:09 10/27/17 17:02 Vitamin A&D TP 1 applic Q8 PRN Administration Dry skin - Patient Studies Lab Studies: Microbiology Studies 10/27/17 10:41 Blood Culture - Preliminary Blood-Venous NO GROWTH AFTER 3 DAYS 10/27/17 09:15 Blood Culture - Preliminary Blood-Venous NO GROWTH AFTER 3 DAYS Lab Studies 10/30/17 10/30/17 10/30/17 Range/Units 11:28 06:32 06:20 WBC 23.1 H (4.8-10.8) K/uL RBC 2.94 L (4.40-5.90) Mil/uL Hgb 8.1 L (12.0-18.0) g/dL Hct 24.0 L (35.0-51.0) % MCV 81.5 (80.0-94.0) fL MCH 27.5 (27.0-31.0) pg MCHC 33.8 (33.0-37.0) g/dL RDW 20.9 H (11.5-14.5) % Plt Count 26 L* D (130-400) K/uL MPV 9.2 (7.2-11.7) fL Neut % (Auto) 89.8 H (50.0-75.0) % Lymph % (Auto) 7.4 L (20.0-40.0) % [place] % (Auto) 2.4 (0.0-10.0) % Eos % (Auto) 0.1 (0.0-4.0) % Baso % (Auto) 0.3 (0.0-2.0) % Neut # (Auto) 20.7 H (1.8-7.0) K/uL Lymph # (Auto) 1.7 (1.0-4.3) K/uL [place] # (Auto) 0.6 (0.0-0.8) K/uL Eos # (Auto) 0.0 (0.0-0.7) K/uL Baso # (Auto) 0.1 (0.0-0.2) K/uL Neutrophils % (Manual) 56 (50-75) % Band Neutrophils % 19 H* (0-2) % Lymphocytes % (Manual) 7 L (20-40) % Monocytes % (Manual) 7 (0-10) % Metamyelocytes % 2 H (0-0) % Myelocytes % 9 H (0-0) % Nucleated RBC % 5 H (0-0) % Platelet Estimate Markedly decreased L (NORMAL) Polychromasia Slight Hypochromasia (manual) Slight Anisocytosis (manual) Slight Target Cells Slight Schistocytes Slight Puncture Site pCO2 (35-45) mm/Hg pO2 (80-100) mm/Hg HCO3 (21-28) mmol/L ABG pH (7.35-7.45) ABG Total CO2 (22-28) mmol/L ABG O2 Saturation (95-98) % ABG Base Excess (-2.0-3.0) mmol/L ABG Hemoglobin (11.7-17.4) g/dL ABG Carboxyhemoglobin (0.5-1.5) % POC ABG HHb (Measured) (0.0-5.0) % ABG Methemoglobin (0.0-3.0) % Jt Test A-a O2 Difference mm/Hg Respiratory Index Hgb O2 Saturation (95.0-98.0) % Vent Mode Mechanical Rate FiO2 % Tidal Volume PEEP Sodium 150 H (132-148) mmol/L Potassium 4.7 (3.6-5.2) mmol/L Chloride 112 H (98-107) mmol/L Carbon Dioxide 33 H (22-30) mmol/L Anion Gap 10 (10-20) BUN 52 H (9-20) mg/dL Creatinine 1.6 H (0.8-1.5) mg/dL Est GFR ( Amer) 53 Est GFR (Non-Af Amer) 44 POC Glucose (mg/dL) 187 H (65-110) mg/dL Random Glucose 145 H (75-110) mg/dL Calcium 7.8 L (8.6-10.4) mg/dl Phosphorus 3.5 (2.5-4.5) mg/dL Magnesium 2.3 (1.6-2.3) mg/dL Total Bilirubin 3.8 H (0.2-1.3) mg/dL AST 70 H D (17-59) U/L ALT 42 (21-72) U/L Alkaline Phosphatase 376 H (38-126) U/L Total Protein 5.6 L (6.3-8.3) g/dL Albumin 2.3 L (3.5-5.0) g/dL Globulin 3.3 (2.2-3.9) gm/dL Albumin/Globulin Ratio 0.7 L (1.0-2.1) 0610/30/17 10/30/17 Range/Units 05:17 05:05 00:14 WBC (4.8-10.8) K/uL RBC (4.40-5.90) Mil/uL Hgb (12.0-18.0) g/dL Hct (35.0-51.0) % MCV (80.0-94.0) fL MCH (27.0-31.0) pg MCHC (33.0-37.0) g/dL RDW (11.5-14.5) % Plt Count (130-400) K/uL MPV (7.2-11.7) fL Neut % (Auto) (50.0-75.0) % Lymph % (Auto) (20.0-40.0) % [place] % (Auto) (0.0-10.0) % Eos % (Auto) (0.0-4.0) % Baso % (Auto) (0.0-2.0) % Neut # (Auto) (1.8-7.0) K/uL Lymph # (Auto) (1.0-4.3) K/uL [place] # (Auto) (0.0-0.8) K/uL Eos # (Auto) (0.0-0.7) K/uL Baso # (Auto) (0.0-0.2) K/uL Neutrophils % (Manual) (50-75) % Band Neutrophils % (0-2) % Lymphocytes % (Manual) (20-40) % Monocytes % (Manual) (0-10) % Metamyelocytes % (0-0) % Myelocytes % (0-0) % Nucleated RBC % (0-0) % Platelet Estimate (NORMAL) Polychromasia Hypochromasia (manual) Anisocytosis (manual) Target Cells Schistocytes Puncture Site R rad pCO2 63 H (35-45) mm/Hg pO2 63 L (80-100) mm/Hg HCO3 27.7 (21-28) mmol/L ABG pH 7.30 L (7.35-7.45) ABG Total CO2 32.9 H (22-28) mmol/L ABG O2 Saturation 94.8 L (95-98) % ABG Base Excess 3.7 H (-2.0-3.0) mmol/L ABG Hemoglobin 8.5 L (11.7-17.4) g/dL ABG Carboxyhemoglobin 3.3 H (0.5-1.5) % POC ABG HHb (Measured) 5.0 (0.0-5.0) % ABG Methemoglobin 1.0 (0.0-3.0) % Jt Test Pos A-a O2 Difference 571.0 mm/Hg Respiratory Index 9.1 Hgb O2 Saturation 90.7 L (95.0-98.0) % Vent Mode Prvc Mechanical Rate 24 FiO2 100.0 % Tidal Volume 550 PEEP 8 Sodium (132-148) mmol/L Potassium (3.6-5.2) mmol/L Chloride (98-107) mmol/L Carbon Dioxide (22-30) mmol/L Anion Gap (10-20) BUN (9-20) mg/dL Creatinine (0.8-1.5) mg/dL Est GFR ( Amer) Est GFR (Non-Af Amer) POC Glucose (mg/dL) 164 H 170 H (65-110) mg/dL Random Glucose (75-110) mg/dL Calcium (8.6-10.4) mg/dl Phosphorus (2.5-4.5) mg/dL Magnesium (1.6-2.3) mg/dL Total Bilirubin (0.2-1.3) mg/dL AST (17-59) U/L ALT (21-72) U/L Alkaline Phosphatase (38-126) U/L Total Protein (6.3-8.3) g/dL Albumin (3.5-5.0) g/dL Globulin (2.2-3.9) gm/dL Albumin/Globulin Ratio (1.0-2.1) 10/29/17 Range/Units 17:38 WBC (4.8-10.8) K/uL RBC (4.40-5.90) Mil/uL Hgb (12.0-18.0) g/dL Hct (35.0-51.0) % MCV (80.0-94.0) fL MCH (27.0-31.0) pg MCHC (33.0-37.0) g/dL RDW (11.5-14.5) % Plt Count (130-400) K/uL MPV (7.2-11.7) fL Neut % (Auto) (50.0-75.0) % Lymph % (Auto) (20.0-40.0) % [place] % (Auto) (0.0-10.0) % Eos % (Auto) (0.0-4.0) % Baso % (Auto) (0.0-2.0) % Neut # (Auto) (1.8-7.0) K/uL Lymph # (Auto) (1.0-4.3) K/uL [place] # (Auto) (0.0-0.8) K/uL Eos # (Auto) (0.0-0.7) K/uL Baso # (Auto) (0.0-0.2) K/uL Neutrophils % (Manual) (50-75) % Band Neutrophils % (0-2) % Lymphocytes % (Manual) (20-40) % Monocytes % (Manual) (0-10) % Metamyelocytes % (0-0) % Myelocytes % (0-0) % Nucleated RBC % (0-0) % Platelet Estimate (NORMAL) Polychromasia Hypochromasia (manual) Anisocytosis (manual) Target Cells Schistocytes Puncture Site pCO2 (35-45) mm/Hg pO2 (80-100) mm/Hg HCO3 (21-28) mmol/L ABG pH (7.35-7.45) ABG Total CO2 (22-28) mmol/L ABG O2 Saturation (95-98) % ABG Base Excess (-2.0-3.0) mmol/L ABG Hemoglobin (11.7-17.4) g/dL ABG Carboxyhemoglobin (0.5-1.5) % POC ABG HHb (Measured) (0.0-5.0) % ABG Methemoglobin (0.0-3.0) % Jt Test A-a O2 Difference mm/Hg Respiratory Index Hgb O2 Saturation (95.0-98.0) % Vent Mode Mechanical Rate FiO2 % Tidal Volume PEEP Sodium (132-148) mmol/L Potassium (3.6-5.2) mmol/L Chloride (98-107) mmol/L Carbon Dioxide (22-30) mmol/L Anion Gap (10-20) BUN (9-20) mg/dL Creatinine (0.8-1.5) mg/dL Est GFR ( Amer) Est GFR (Non-Af Amer) POC Glucose (mg/dL) 156 H (65-110) mg/dL Random Glucose (75-110) mg/dL Calcium (8.6-10.4) mg/dl Phosphorus (2.5-4.5) mg/dL Magnesium (1.6-2.3) mg/dL Total Bilirubin (0.2-1.3) mg/dL AST (17-59) U/L ALT (21-72) U/L Alkaline Phosphatase (38-126) U/L Total Protein (6.3-8.3) g/dL Albumin (3.5-5.0) g/dL Globulin (2.2-3.9) gm/dL Albumin/Globulin Ratio (1.0-2.1) Laboratory Results - last 24 hr 10/29/17 10/30/17 10/30/17 17:38 00:14 05:05 WBC RBC Hgb Hct MCV MCH MCHC RDW Plt Count MPV Neut % (Auto) Lymph % (Auto) [place] % (Auto) Eos % (Auto) Baso % (Auto) Neut # (Auto) Lymph # (Auto) [place] # (Auto) Eos # (Auto) Baso # (Auto) Neutrophils % (Manual) Band Neutrophils % Lymphocytes % (Manual) Monocytes % (Manual) Metamyelocytes % Myelocytes % Nucleated RBC % Platelet Estimate Polychromasia Hypochromasia (manual) Anisocytosis (manual) Target Cells Schistocytes Puncture Site pCO2 pO2 HCO3 ABG pH ABG Total CO2 ABG O2 Saturation ABG Base Excess ABG Hemoglobin ABG Carboxyhemoglobin POC ABG HHb (Measured) ABG Methemoglobin Jt Test A-a O2 Difference Respiratory Index Hgb O2 Saturation Vent Mode Mechanical Rate FiO2 Tidal Volume PEEP Sodium Potassium Chloride Carbon Dioxide Anion Gap BUN Creatinine Est GFR ( Amer) Est GFR (Non-Af Amer) POC Glucose (mg/dL) 156 H 170 H 164 H Random Glucose Calcium Phosphorus Magnesium Total Bilirubin AST ALT Alkaline Phosphatase Total Protein Albumin Globulin Albumin/Globulin Ratio 10/30/17 10/30/17 10/30/17 05:17 06:20 06:32 WBC 23.1 H RBC 2.94 L Hgb 8.1 L Hct 24.0 L MCV 81.5 MCH 27.5 MCHC 33.8 RDW 20.9 H Plt Count 26 L* D MPV 9.2 Neut % (Auto) 89.8 H Lymph % (Auto) 7.4 L [place] % (Auto) 2.4 Eos % (Auto) 0.1 Baso % (Auto) 0.3 Neut # (Auto) 20.7 H Lymph # (Auto) 1.7 [place] # (Auto) 0.6 Eos # (Auto) 0.0 Baso # (Auto) 0.1 Neutrophils % (Manual) 56 Band Neutrophils % 19 H* Lymphocytes % (Manual) 7 L Monocytes % (Manual) 7 Metamyelocytes % 2 H Myelocytes % 9 H Nucleated RBC % 5 H Platelet Estimate Markedly decreased L Polychromasia Slight Hypochromasia (manual) Slight Anisocytosis (manual) Slight Target Cells Slight Schistocytes Slight Puncture Site R rad pCO2 63 H pO2 63 L HCO3 27.7 ABG pH 7.30 L ABG Total CO2 32.9 H ABG O2 Saturation 94.8 L ABG Base Excess 3.7 H ABG Hemoglobin 8.5 L ABG Carboxyhemoglobin 3.3 H POC ABG HHb (Measured) 5.0 ABG Methemoglobin 1.0 Jt Test Pos A-a O2 Difference 571.0 Respiratory Index 9.1 Hgb O2 Saturation 90.7 L Vent Mode Prvc Mechanical Rate 24 FiO2 100.0 Tidal Volume 550 PEEP 8 Sodium 150 H Potassium 4.7 Chloride 112 H Carbon Dioxide 33 H Anion Gap 10 BUN 52 H Creatinine 1.6 H Est GFR ( Amer) 53 Est GFR (Non-Af Amer) 44 POC Glucose (mg/dL) Random Glucose 145 H Calcium 7.8 L Phosphorus 3.5 Magnesium 2.3 Total Bilirubin 3.8 H AST 70 H D ALT 42 Alkaline Phosphatase 376 H Total Protein 5.6 L Albumin 2.3 L Globulin 3.3 Albumin/Globulin Ratio 0.7 L 10/30/17 11:28 WBC RBC Hgb Hct MCV MCH MCHC RDW Plt Count MPV Neut % (Auto) Lymph % (Auto) [place] % (Auto) Eos % (Auto) Baso % (Auto) Neut # (Auto) Lymph # (Auto) [place] # (Auto) Eos # (Auto) Baso # (Auto) Neutrophils % (Manual) Band Neutrophils % Lymphocytes % (Manual) Monocytes % (Manual) Metamyelocytes % Myelocytes % Nucleated RBC % Platelet Estimate Polychromasia Hypochromasia (manual) Anisocytosis (manual) Target Cells Schistocytes Puncture Site pCO2 pO2 HCO3 ABG pH ABG Total CO2 ABG O2 Saturation ABG Base Excess ABG Hemoglobin ABG Carboxyhemoglobin POC ABG HHb (Measured) ABG Methemoglobin Jt Test A-a O2 Difference Respiratory Index Hgb O2 Saturation Vent Mode Mechanical Rate FiO2 Tidal Volume PEEP Sodium Potassium Chloride Carbon Dioxide Anion Gap BUN Creatinine Est GFR ( Amer) Est GFR (Non-Af Amer) POC Glucose (mg/dL) 187 H Random Glucose Calcium Phosphorus Magnesium Total Bilirubin AST ALT Alkaline Phosphatase Total Protein Albumin Globulin Albumin/Globulin Ratio Critical Care Progress Note - Nutrition Nutrition: Nutrition Category Date Time Status NPO Diet [DIET] Diets 10/27/17 Lunch Active Attending/Attestation - Attestation I have personally seen and examined this patient.: Yes I have fully participated in the care of the patient.: Yes I have reviewed all pertinent clinical information: Yes Notes (Text): 10/30/17 18:21 patient seen and examined in the intensive care unit. 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 Patient is s/p code blue - 1 round epi, 1 bolus Amio, intubated- 10/26. Admitted to the ICU for NSTEMI, Septic shock, ANDRES with metabolic acidosis, Hypoxic and Hypercapneic respiratory failure ARDS vs PE?, currently intubated sedated on fentanyl and Versed Continue IV antibiotics Patient is off bicarbonate drip Family meeting tomorrow Prognosis grave
--- NOTE | 2017-10-30 15:24 | CP.PCM.PN ---
Subjective - Date & Time of Evaluation Date of Evaluation: 10/30/17 Time of Evaluation: 03:20 - Subjective Subjective: dictated Objective - Vital Signs/Intake and Output Vital Signs (last 24 hours): Temp Pulse Resp BP Pulse Ox 98.8 F 113 H 11 L 111/67 100 10/30/17 12:00 10/30/17 14:23 10/30/17 14:23 10/30/17 14:23 10/30/17 14:23 Intake and Output: 10/30/17 10/30/17 06:59 18:59 Intake Total 2017.8 1031.4 Output Total 215 25 Balance 1802.8 1006.4 - Medications Medications: Current Medications Albuterol/Ipratropium (Duoneb 3 Mg/0.5 Mg (3 Ml) Ud) 3 ml INH RQ6 LISA Last Admin: 10/30/17 07:46 Dose: 3 ml Ascorbic Acid (Vitamin C 500 Mg Tab) 500 mg PO DAILY [facility] Last Admin: 10/30/17 09:20 Dose: 500 mg Famotidine (Pepcid) 20 mg PO DAILY [facility] Last Admin: 10/30/17 09:20 Dose: 20 mg Hydrocortisone Sodium Succinate (Solu-Cortef) 50 mg IV Q6H LISA Last Admin: 10/30/17 13:28 Dose: 50 mg Aztreonam 2 gm/ Sodium (Chloride) 100 mls @ 200 mls/hr IVPB Q8H LISA PRN Reason: Protocol Last Admin: 10/30/17 05:47 Dose: 200 mls/hr Vancomycin/Sodium Chloride (Vancomycin 1 Gm/Ns 200 Ml) 1 gm in 200 mls @ 133 mls/hr IVPB Q12H LISA PRN Reason: Protocol Stop: 11/01/17 00:31 Last Admin: 10/30/17 13:29 Dose: 133 mls/hr Norepinephrine Bitartrate 4 mg (/ Dextrose) 254 mls @ 15.24 mls/hr IV .[id number] PRN; Protocol; 4 MCG/MIN PRN Reason: TITRATE PER MD ORDER Last Admin: 10/30/17 14:22 Dose: 2 mcg/min, 7.62 mls/hr Fentanyl Citrate 2,500 mcg/ (Sodium Chloride) 250 mls @ 19.05 mls/hr IV .Q13H8M PRN; 2 MCG/KG/HR PRN Reason: Protocol Last Admin: 10/30/17 12:34 Dose: 5 mcg/kg/hr, 47.62 mls/hr Midazolam HCl 100 mg/ Dextrose 100 mls @ 1.9 mls/hr IV .Q24H LISA; 0.02 MG/KG/HR PRN Reason: Protocol Last Titration: 10/29/17 23:00 Dose: 0.03 mg/kg/hr, 2.85 mls/hr Insulin Aspart (Novolog) 0 unit SC Q6H LISA PRN Reason: Protocol Last Admin: 10/30/17 13:28 Dose: 2 units Lactulose (Enulose) 20 gm NG Q8H PRN PRN Reason: Constipation Moxifloxacin HCl (Avelox) 400 mg NG DAILY LISA PRN Reason: Protocol Stop: 10/31/17 10:01 Last Admin: 10/30/17 09:19 Dose: 400 mg Ondansetron HCl (Zofran Inj) 4 mg IVP Q6 PRN PRN Reason: Nausea/Vomiting Vitamin A (Vitamin A&D) 0 applic TP Q8 PRN PRN Reason: Dry skin Last Admin: 10/27/17 17:02 Dose: 1 applic - Labs Labs: 10/30/17 06:32 10/30/17 06:20 PT 17.7 SECONDS (9.7-12.2) H 10/29/17 11:22 INR 1.6 10/29/17 11:22 APTT 25 SECONDS (21-34) 10/29/17 11:22
--- NOTE | 2017-10-30 21:03 | PN ---
DATE: 10/30/2017 SUBJECTIVE: The patient remains intubated, on IV antibiotics and on drip. He is intubated, sedated and has not been weanable according to the ICU resident. The patient has dropped his platelets and remains tachycardic. PHYSICAL EXAMINATION: VITAL SIGNS: T-max is 98.8, blood pressure is 111/72, respirations on the vent and heart rate of 106, saturation is 99%, intubated, sedated. NECK: Supple. LUNGS: Occasional rhonchi, otherwise clear. HEART: S1 and S2, tachycardic. ABDOMEN: Remains prominent. No guarding, no rigidity present. EXTREMITIES: Have bilateral edema. LABORATORY DATA: Labs are noted. Labs show white count is 23.1, it has increased from 17.5; hemoglobin is 8.1; hematocrit 24; platelet count is 26, it is decreasing at this time, I would discontinue the Flagyl. His bilirubin is increasing to 3.8, AST is 70, ALT is 42, alkaline phosphatase is 376, creatinine is 1.6. ASSESSMENT AND PLAN: So, we will have to go down on the vancomycin also. The patient is now approaching multiorgan failure, it seems along with respiratory failure he had and is developing thrombocytopenia and increasing WBC. His chest x-ray shows stable pulmonary edema, status position of support apparatus. So at this time, I would decrease the vancomycin to once a day and discontinue Flagyl, continue Azactam and continue Avelox as it is on, and we will follow. Prognosis remains guarded. Juan Carlos Lomax MD
[2017-10-31] MEDS: (Novolog) Insulin Aspart, Recombinant 100 u/ml 10 ml vial SC SCH ×4 (00:07→18:13)
[2017-10-31] MEDS: Albuterol-Ipratrop 3 mg / 0.5 (3 ml) UD INH SCH ×4 (01:08→19:02)
[2017-10-31 04:27] LABS: ABG ALLEN TEST POS; ARTERIAL BLOOD GAS HEMOGLOBIN 10.2 g/dL (11.7-17.4); ARTERIAL BLOOD GAS O2 SAT 99.2 % (95-98); ARTERIAL BLOOD GAS PCO2 69 mm/Hg (35-45); ARTERIAL BLOOD GAS PH 7.21 (7.35-7.45); ARTERIAL BLOOD GAS PO2 111 mm/Hg (80-100); ARTERIAL BLOOD GAS TCO2 29.7 mmol/L (22-28)
[2017-10-31] MEDS: Aztreonam 2 GM in Sodium Chloride 0.9% 100 ML IVPB SCH (05:34)
[2017-10-31 06:37] LABS: BASO % 0.2 % (0.0-2.0); MEAN CORPUSCULAR HEMOGLOBIN 27.3 pg (27.0-31.0)
[2017-10-31 06:41] LABS: ALB/GLOB RATIO 0.7 (1.0-2.1); ALBUMIN 2.3 g/dL (3.5-5.0); CALCIUM 7.6 mg/dl (8.6-10.4)
[2017-10-31] MEDS: Midazolam 50 mg/10 ml 100 MG in Dextrose 5% In Water 80 ML IV SCH ×2 (06:42→07:32)
[2017-10-31 07:04] LABS: HEMOGLOBIN 7.8 g/dL (12.0-18.0); LYMPH # 2.8 K/uL (1.0-4.3); MEAN CELL VOLUME 81.1 fL (80.0-94.0); MEAN CORPUSCULAR HGB CONC 33.7 g/dL (33.0-37.0); MEAN PLATELET VOLUME 4.6 fL (7.2-11.7); MONO # 0.9 K/uL (0.0-0.8); MONO % 2.8 % (0.0-10.0); NRBC % 4.4 % (0.0-2.0); RBC 2.87 Mil/uL (4.40-5.90); RED CELL DISTRIBUTION WIDTH 22.3 % (11.5-14.5); WHITE BLOOD COUNT 30.7 K/uL (4.8-10.8)
[2017-10-31 07:24] LABS: PLATELET COUNT 33 K/uL (130-400)
[2017-10-31 09:02] LABS: ANISOCYTOSIS SLIGHT; BANDS 33 % (0-2); LYMPHOCYTE 5 % (20-40); METAMYELOCYTE 7 % (0-0); MYELOCYTE 10 % (0-0); NEUTROPHIL 43 % (50-75); NUCLEATED RED BLOOD CELL 14 % (0-0); PLATELET ESTIMATE DECREASED (NORMAL); REACTIVE LYMPHOCYTES 2 % (0-0); TOTAL CELLS COUNTED 100
[2017-10-31 09:03] LABS: HYPOCHROMIC SLIGHT; POLYCHROMIC SLIGHT; SCHISTOCYTES SLIGHT
--- NOTE | 2017-10-31 09:36 | CP.PCM.PN ---
Subjective - Date & Time of Evaluation Date of Evaluation: 10/31/17 Time of Evaluation: 09:00 - Subjective Subjective: Patient was seen and examined by me When I came in, they were trying to see how he would do with lower doses of fentanyl and versed - he was struggling and appeared to be very uncomfortable so they went back to the dose he was on previously As mentioned previously I had conversation with daughter and also with sister and some extended family at bedside. They are going to come in again today. Hopefully for terminal extubation - the patient has suffered a lot. Review of lab work shows worsening renal function, WBC, bandemia, platelets as well. Objective - Vital Signs/Intake and Output Vital Signs (last 24 hours): Temp Pulse Resp BP Pulse Ox 98.6 F 127 H 17 122/77 99 10/31/17 09:03 10/31/17 08:21 10/31/17 08:21 10/31/17 08:21 10/31/17 08:21 Intake and Output: 10/31/17 10/31/17 06:59 18:59 Intake Total 1581.8 292.5 Output Total 43 35 Balance 1538.8 257.5 - Medications Medications: Current Medications Albuterol/Ipratropium (Duoneb 3 Mg/0.5 Mg (3 Ml) Ud) 3 ml INH RQ6 LISA Last Admin: 10/31/17 07:10 Dose: 3 ml Ascorbic Acid (Vitamin C 500 Mg Tab) 500 mg PO DAILY [facility] Last Admin: 10/30/17 09:20 Dose: 500 mg Famotidine (Pepcid) 20 mg PO DAILY [facility] Last Admin: 10/30/17 09:20 Dose: 20 mg Hydrocortisone Sodium Succinate (Solu-Cortef) 50 mg IV Q6H LISA Last Admin: 10/31/17 05:33 Dose: 50 mg Aztreonam 2 gm/ Sodium (Chloride) 100 mls @ 200 mls/hr IVPB Q8H LISA PRN Reason: Protocol Last Admin: 10/31/17 05:34 Dose: 200 mls/hr Norepinephrine Bitartrate 4 mg (/ Dextrose) 254 mls @ 15.24 mls/hr IV .[id number] PRN; Protocol; 4 MCG/MIN PRN Reason: TITRATE PER MD ORDER Last Admin: 10/30/17 14:22 Dose: 2 mcg/min, 7.62 mls/hr Fentanyl Citrate 2,500 mcg/ (Sodium Chloride) 250 mls @ 19.05 mls/hr IV .Q13H8M PRN; 2 MCG/KG/HR PRN Reason: Protocol Last Titration: 10/31/17 08:29 Dose: 5 mcg/kg/hr, 47.62 mls/hr Midazolam HCl 100 mg/ Dextrose 100 mls @ 1.9 mls/hr IV .Q24H LISA; 0.02 MG/KG/HR PRN Reason: Protocol Last Titration: 10/31/17 09:03 Dose: 0.04 mg/kg/hr, 4 mls/hr Vancomycin/Sodium Chloride (Vancomycin 1 Gm/Ns 200 Ml) 1 gm in 200 mls @ 133 mls/hr IVPB DAILY LISA PRN Reason: Protocol Stop: 11/05/17 10:01 Insulin Aspart (Novolog) 0 unit SC Q6H LISA PRN Reason: Protocol Last Admin: 10/31/17 06:41 Dose: 2 units Lactulose (Enulose) 20 gm NG Q8H PRN PRN Reason: Constipation Moxifloxacin HCl (Avelox) 400 mg NG DAILY LISA PRN Reason: Protocol Stop: 10/31/17 10:01 Last Admin: 10/30/17 09:19 Dose: 400 mg Ondansetron HCl (Zofran Inj) 4 mg IVP Q6 PRN PRN Reason: Nausea/Vomiting Vitamin A (Vitamin A&D) 0 applic TP Q8 PRN PRN Reason: Dry skin Last Admin: 10/27/17 17:02 Dose: 1 applic - Labs Labs: 10/31/17 06:19 10/31/17 06:19 PT 17.7 SECONDS (9.7-12.2) H 10/29/17 11:22 INR 1.6 10/29/17 11:22 APTT 25 SECONDS (21-34) 10/29/17 11:22 - Constitutional Appears: Chronically Ill - ENT Exam ENT Exam: Mucous Membranes Moist - Respiratory Exam Respiratory Exam: Decreased Breath Sounds, Rales, Rhonchi - Neurological Exam Neurological Exam: absent: Alert, Awake, Oriented x3 - Skin Skin Exam: Warm Assessment and Plan - Assessment and Plan (Free Text) Assessment: 1. Acute Respiratory failure on Ventilator 10/31: Pending family meeting today to discuss CODE status, maybe terminal extubation 10/30: Remains on ventilator. I spoke with family member today since at this time prognosis is poor and it does not look like he will be able to successful be weaned from the ventilator. Patient's family member will be comming in today and discuss further with the ICU. Hopefully change code status to DNR or DNI. 10/29: Remains intubated at this time. Currently not weaning at this time as he is on Versed and Fentanyl. Aspiration/ARDS/sepsis/rule out NH Worsening metastatic lung cancer/small cell stage 4 Today's chest x ray with ARDS/Pulmonary edema,multi focal pneumonia/pleural effusion He remains on Aztronam, Flagyl, Vancomycin and Avelox 2.Sepsis/Immunocompromised state secondary to chemo 10/30: WBC continue to be elevated. Large left shifts 10/29: The patient WBC is 17, large left shift as well as bandemia Fluids and Levophed He is on Aztreonam, Vancomycin, Flagyl, and also Avelox Cultures are negative past 48 hrs. 3. 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 NSTMI/Troponin came down EKG with T wave changes on anterior leads follow echo report Not a candidate for anticoag/MRI brain 09/06 with possible brain mets 5. Acute Pancreatitis (likely from metastatic spread) 6. Pancytopenia Secondary to chemotherapy 7.Tobacco use 8. History of Alzheimer's 9. History of Anxiety
[2017-10-31] MEDS ORDERED: Vancomycin 1 gm/NS 200 ml 1 GM/200 ML BAG IVPB SCH (10:00)
--- NOTE | 2017-10-31 10:23 | CP.CCUPN ---
<Becka Ta - Last Filed: 10/31/17 10:21> CCU Subjective - Physician Review Subjective (Free Text): Patient seen and examined at bedside. Patient is intubated and sedated on fentanyl and versed. CCU Objective - Vital Signs / Intake & Output Vital Signs (Last 4 hours): Vital Signs Temp Pulse Resp BP Pulse Ox 10/31/17 09:03 98.6 F 10/31/17 08:21 127 H 17 122/77 99 10/31/17 08:01 113 H 24 93/66 L 100 10/31/17 08:00 112 H 24 100 10/31/17 07:00 113 H 14 114/66 95 10/31/17 06:26 111 H 10 L 104/64 99 Intake and Output (Last 8hrs): Intake & Output 10/30/17 10/31/17 10/31/17 22:59 06:59 14:59 Intake Total 1353.1 1173.6 292.5 Output Total 15 43 35 Balance 1338.1 1130.6 257.5 Intake: IV 250 398 23.1 Intake, IV Amount 808.1 415.6 74.4 Right Distal Port Femoral 200 Right Medial Port Femoral 52.5 60.0 22.5 Right Port-A-Cath 334.6 334.6 47.9 Right Proximal Port 21 21 4 Femoral Right Wrist 200 Tube Feeding 295 360 135 Other 60 Output: Gastric Amount 30 Left 30 Urine 15 43 5 Urethral (Clay) 15 43 5 Other: # Bowel Movements 0 0 0 - Physical Exam Head: Positive for: Atraumatic, Normocephalic Pupils: Positive for: PERRL Extroacular Muscles: Positive for: EOMI Conjunctiva: Positive for: Normal Mouth: Positive for: Dry, Other (INTUBATED) Nose (External): Positive for: Other (NGT in place) Respiratory/Chest: Positive for: Decreased Breath Sounds Cardiovascular: Positive for: Tachycardic Abdomen: Positive for: Normal Bowel Sounds. Negative for: Tenderness, Distention Upper Extremity: Positive for: Normal Inspection, NORMAL PULSES, Neurovascularly Intact, Capillary Refill < 2s Lower Extremity: Positive for: Normal Inspection, NORMAL PULSES, Neurovascularly Intact, Capillary Refill < 2 s Skin: Positive for: Warm, Dry, Normal Color Psychiatric: Positive for: Alert - Medications Active Medications: Active Medications Generic Name Dose Route Start Last Admin Trade Name Freq PRN Reason Stop Dose Admin Albuterol/Ipratropium 3 ml 10/26/17 20:00 10/31/17 07:10 Duoneb 3 Mg/0.5 Mg (3 Ml) Ud INH 3 ml RQ6 LISA Administration Ascorbic Acid 500 mg 10/28/17 11:00 10/31/17 09:54 Vitamin C 500 Mg Tab PO 500 mg DAILY LISA Administration Famotidine 20 mg 10/22/17 10:00 10/31/17 09:55 Pepcid PO 20 mg DAILY LISA Administration Hydrocortisone Sodium Succinate 50 mg 10/28/17 18:30 10/31/17 05:33 Solu-Cortef IV 50 mg Q6H LISA Administration Aztreonam 2 gm/ Sodium 100 mls @ 200 mls/hr 10/20/17 22:30 10/31/17 05:34 Chloride IVPB 200 mls/hr Q8H LISA Administration Protocol Norepinephrine Bitartrate 4 mg 254 mls @ 15.24 mls/hr 10/27/17 08:30 14:22 / Dextrose IV 2 mcg/min .[id number] PRN 7.62 mls/hr TITRATE PER MD ORDER Administration Protocol 4 MCG/MIN Fentanyl Citrate 2,500 mcg/ 250 mls @ 19.05 mls/hr 10/28/17 20:30 10/31/17 08 :29 Sodium Chloride IV 5 mcg/kg/hr .[id number] PRN 47.62 mls/hr Protocol Titration 2 MCG/KG/HR Midazolam HCl 100 mg/ Dextrose 100 mls @ 1.9 mls/hr 10/29/17 22:15 10/31/17 09:03 IV 0.04 mg/kg/hr .Q24H LISA 4 mls/hr Protocol Titration 0.02 MG/KG/HR Vancomycin/Sodium Chloride 1 gm in 200 mls @ 133 mls/hr 10/31/17 10:00 09:50 Vancomycin 1 Gm/Ns 200 Ml IVPB 11/05/17 10:01 133 mls/hr DAILY LISA Administration Protocol Insulin Aspart 0 unit 10/28/17 18:30 10/31/17 06:41 Novolog SC 2 units Q6H LISA Administration Protocol Lactulose 20 gm 10/28/17 10:57 Enulose NG Q8H PRN Constipation Ondansetron HCl 4 mg 10/20/17 18:06 Zofran Inj IVP Q6 PRN Nausea/Vomiting Vitamin A 0 applic 10/27/17 12:09 10/27/17 17:02 Vitamin A&D TP 1 applic Q8 PRN Administration Dry skin - Patient Studies Lab Studies: Microbiology Studies 10/27/17 09:15 Blood Culture - Preliminary Blood-Venous NO GROWTH AFTER 4 DAYS 10/27/17 10:41 Blood Culture - Preliminary Blood-Venous NO GROWTH AFTER 3 DAYS Lab Studies 10/31/17 10/31/17 10/31/17 Range/Units 06:19 06:19 06:19 WBC 30.7 H (4.8-10.8) K/uL RBC 2.87 L (4.40-5.90) Mil/uL Hgb 7.8 L (12.0-18.0) g/dL Hct 23.3 L (35.0-51.0) % MCV 81.1 (80.0-94.0) fL MCH 27.3 (27.0-31.0) pg MCHC 33.7 (33.0-37.0) g/dL RDW 22.3 H (11.5-14.5) % Plt Count 33 L (130-400) K/uL MPV 4.6 L (7.2-11.7) fL Neut % (Auto) 88.0 H (50.0-75.0) % Lymph % (Auto) 9.0 L (20.0-40.0) % [place] % (Auto) 2.8 (0.0-10.0) % Eos % (Auto) 0.0 (0.0-4.0) % Baso % (Auto) 0.2 (0.0-2.0) % Neut # (Auto) 27.0 H (1.8-7.0) K/uL Lymph # (Auto) 2.8 (1.0-4.3) K/uL [place] # (Auto) 0.9 H (0.0-0.8) K/uL Eos # (Auto) 0.0 (0.0-0.7) K/uL Baso # (Auto) 0.0 (0.0-0.2) K/uL Neutrophils % (Manual) 43 L (50-75) % Band Neutrophils % 33 H* (0-2) % Lymphocytes % (Manual) 5 L (20-40) % Reactive Lymphs % 2 H (0-0) % Monocytes % (Manual) TEST NOT PERFORMED Metamyelocytes % 7 H (0-0) % Myelocytes % 10 H (0-0) % Nucleated RBC % 14 H (0-0) % Platelet Estimate Decreased L (NORMAL) Polychromasia Slight Hypochromasia (manual) Slight Anisocytosis (manual) Slight Schistocytes Slight Puncture Site pCO2 (35-45) mm/Hg pO2 (80-100) mm/Hg HCO3 (21-28) mmol/L ABG pH (7.35-7.45) ABG Total CO2 (22-28) mmol/L ABG O2 Saturation (95-98) % ABG Base Excess (-2.0-3.0) mmol/L ABG Hemoglobin (11.7-17.4) g/dL ABG Carboxyhemoglobin (0.5-1.5) % POC ABG HHb (Measured) (0.0-5.0) % ABG Methemoglobin (0.0-3.0) % Jt Test A-a O2 Difference mm/Hg Respiratory Index Hgb O2 Saturation (95.0-98.0) % Vent Mode Mechanical Rate FiO2 % Tidal Volume PEEP Sodium 151 H (132-148) mmol/L Potassium 5.4 H (3.6-5.2) mmol/L Chloride 111 H (98-107) mmol/L Carbon Dioxide 29 (22-30) mmol/L Anion Gap 16 (10-20) BUN 87 H (9-20) mg/dL Creatinine 3.4 H (0.8-1.5) mg/dL Est GFR ( Amer) 22 Est GFR (Non-Af Amer) 18 POC Glucose (mg/dL) (65-110) mg/dL Random Glucose 158 H (75-110) mg/dL Calcium 7.6 L (8.6-10.4) mg/dl Phosphorus 4.3 (2.5-4.5) mg/dL Magnesium 2.5 H (1.6-2.3) mg/dL Total Bilirubin 4.2 H (0.2-1.3) mg/dL AST 105 H D (17-59) U/L ALT 48 (21-72) U/L Alkaline Phosphatase 491 H D (38-126) U/L Total Protein 5.5 L (6.3-8.3) g/dL Albumin 2.3 L (3.5-5.0) g/dL Globulin 3.1 (2.2-3.9) gm/dL Albumin/Globulin Ratio 0.7 L (1.0-2.1) Random Vancomycin 31.5 ug/mL 10/31/17 10/31/17 10/30/17 Range/Units 06:17 04:20 23:27 WBC (4.8-10.8) K/uL RBC (4.40-5.90) Mil/uL Hgb (12.0-18.0) g/dL Hct (35.0-51.0) % MCV (80.0-94.0) fL MCH (27.0-31.0) pg MCHC (33.0-37.0) g/dL RDW (11.5-14.5) % Plt Count (130-400) K/uL MPV (7.2-11.7) fL Neut % (Auto) (50.0-75.0) % Lymph % (Auto) (20.0-40.0) % [place] % (Auto) (0.0-10.0) % Eos % (Auto) (0.0-4.0) % Baso % (Auto) (0.0-2.0) % Neut # (Auto) (1.8-7.0) K/uL Lymph # (Auto) (1.0-4.3) K/uL [place] # (Auto) (0.0-0.8) K/uL Eos # (Auto) (0.0-0.7) K/uL Baso # (Auto) (0.0-0.2) K/uL Neutrophils % (Manual) (50-75) % Band Neutrophils % (0-2) % Lymphocytes % (Manual) (20-40) % Reactive Lymphs % (0-0) % Monocytes % (Manual) Metamyelocytes % (0-0) % Myelocytes % (0-0) % Nucleated RBC % (0-0) % Platelet Estimate (NORMAL) Polychromasia Hypochromasia (manual) Anisocytosis (manual) Schistocytes Puncture Site Rr pCO2 69 H (35-45) mm/Hg pO2 111 H (80-100) mm/Hg HCO3 24.0 (21-28) mmol/L ABG pH 7.21 L (7.35-7.45) ABG Total CO2 29.7 H (22-28) mmol/L ABG O2 Saturation 99.2 H (95-98) % ABG Base Excess -1.2 (-2.0-3.0) mmol/L ABG Hemoglobin 10.2 L (11.7-17.4) g/dL ABG Carboxyhemoglobin 2.6 H (0.5-1.5) % POC ABG HHb (Measured) 0.8 (0.0-5.0) % ABG Methemoglobin 1.0 (0.0-3.0) % Jt Test Pos A-a O2 Difference 516.0 mm/Hg Respiratory Index 4.6 Hgb O2 Saturation 95.6 (95.0-98.0) % Vent Mode Prvc Mechanical Rate 24 FiO2 100.0 % Tidal Volume 550 PEEP 8 Sodium (132-148) mmol/L Potassium (3.6-5.2) mmol/L Chloride (98-107) mmol/L Carbon Dioxide (22-30) mmol/L Anion Gap (10-20) BUN (9-20) mg/dL Creatinine (0.8-1.5) mg/dL Est GFR ( Amer) Est GFR (Non-Af Amer) POC Glucose (mg/dL) 166 H 178 H (65-110) mg/dL Random Glucose (75-110) mg/dL Calcium (8.6-10.4) mg/dl Phosphorus (2.5-4.5) mg/dL Magnesium (1.6-2.3) mg/dL Total Bilirubin (0.2-1.3) mg/dL AST (17-59) U/L ALT (21-72) U/L Alkaline Phosphatase (38-126) U/L Total Protein (6.3-8.3) g/dL Albumin (3.5-5.0) g/dL Globulin (2.2-3.9) gm/dL Albumin/Globulin Ratio (1.0-2.1) Random Vancomycin ug/mL 10/30/17 10/30/17 Range/Units 17:46 11:28 WBC (4.8-10.8) K/uL RBC (4.40-5.90) Mil/uL Hgb (12.0-18.0) g/dL Hct (35.0-51.0) % MCV (80.0-94.0) fL MCH (27.0-31.0) pg MCHC (33.0-37.0) g/dL RDW (11.5-14.5) % Plt Count (130-400) K/uL MPV (7.2-11.7) fL Neut % (Auto) (50.0-75.0) % Lymph % (Auto) (20.0-40.0) % [place] % (Auto) (0.0-10.0) % Eos % (Auto) (0.0-4.0) % Baso % (Auto) (0.0-2.0) % Neut # (Auto) (1.8-7.0) K/uL Lymph # (Auto) (1.0-4.3) K/uL [place] # (Auto) (0.0-0.8) K/uL Eos # (Auto) (0.0-0.7) K/uL Baso # (Auto) (0.0-0.2) K/uL Neutrophils % (Manual) (50-75) % Band Neutrophils % (0-2) % Lymphocytes % (Manual) (20-40) % Reactive Lymphs % (0-0) % Monocytes % (Manual) Metamyelocytes % (0-0) % Myelocytes % (0-0) % Nucleated RBC % (0-0) % Platelet Estimate (NORMAL) Polychromasia Hypochromasia (manual) Anisocytosis (manual) Schistocytes Puncture Site pCO2 (35-45) mm/Hg pO2 (80-100) mm/Hg HCO3 (21-28) mmol/L ABG pH (7.35-7.45) ABG Total CO2 (22-28) mmol/L ABG O2 Saturation (95-98) % ABG Base Excess (-2.0-3.0) mmol/L ABG Hemoglobin (11.7-17.4) g/dL ABG Carboxyhemoglobin (0.5-1.5) % POC ABG HHb (Measured) (0.0-5.0) % ABG Methemoglobin (0.0-3.0) % Jt Test A-a O2 Difference mm/Hg Respiratory Index Hgb O2 Saturation (95.0-98.0) % Vent Mode Mechanical Rate FiO2 % Tidal Volume PEEP Sodium (132-148) mmol/L Potassium (3.6-5.2) mmol/L Chloride (98-107) mmol/L Carbon Dioxide (22-30) mmol/L Anion Gap (10-20) BUN (9-20) mg/dL Creatinine (0.8-1.5) mg/dL Est GFR ( Amer) Est GFR (Non-Af Amer) POC Glucose (mg/dL) 185 H 187 H (65-110) mg/dL Random Glucose (75-110) mg/dL Calcium (8.6-10.4) mg/dl Phosphorus (2.5-4.5) mg/dL Magnesium (1.6-2.3) mg/dL Total Bilirubin (0.2-1.3) mg/dL AST (17-59) U/L ALT (21-72) U/L Alkaline Phosphatase (38-126) U/L Total Protein (6.3-8.3) g/dL Albumin (3.5-5.0) g/dL Globulin (2.2-3.9) gm/dL Albumin/Globulin Ratio (1.0-2.1) Random Vancomycin ug/mL Laboratory Results - last 24 hr 10/30/17 10/30/17 10/30/17 11:28 17:46 23:27 WBC RBC Hgb Hct MCV MCH MCHC RDW Plt Count MPV Neut % (Auto) Lymph % (Auto) [place] % (Auto) Eos % (Auto) Baso % (Auto) Neut # (Auto) Lymph # (Auto) [place] # (Auto) Eos # (Auto) Baso # (Auto) Neutrophils % (Manual) Band Neutrophils % Lymphocytes % (Manual) Reactive Lymphs % Monocytes % (Manual) Metamyelocytes % Myelocytes % Nucleated RBC % Platelet Estimate Polychromasia Hypochromasia (manual) Anisocytosis (manual) Schistocytes Puncture Site pCO2 pO2 HCO3 ABG pH ABG Total CO2 ABG O2 Saturation ABG Base Excess ABG Hemoglobin ABG Carboxyhemoglobin POC ABG HHb (Measured) ABG Methemoglobin Jt Test A-a O2 Difference Respiratory Index Hgb O2 Saturation Vent Mode Mechanical Rate FiO2 Tidal Volume PEEP Sodium Potassium Chloride Carbon Dioxide Anion Gap BUN Creatinine Est GFR ( Amer) Est GFR (Non-Af Amer) POC Glucose (mg/dL) 187 H 185 H 178 H Random Glucose Calcium Phosphorus Magnesium Total Bilirubin AST ALT Alkaline Phosphatase Total Protein Albumin Globulin Albumin/Globulin Ratio Random Vancomycin 10/31/17 10/31/17 10/31/17 04:20 06:17 06:19 WBC 30.7 H RBC 2.87 L Hgb 7.8 L Hct 23.3 L MCV 81.1 MCH 27.3 MCHC 33.7 RDW 22.3 H Plt Count 33 L MPV 4.6 L Neut % (Auto) 88.0 H Lymph % (Auto) 9.0 L [place] % (Auto) 2.8 Eos % (Auto) 0.0 Baso % (Auto) 0.2 Neut # (Auto) 27.0 H Lymph # (Auto) 2.8 [place] # (Auto) 0.9 H Eos # (Auto) 0.0 Baso # (Auto) 0.0 Neutrophils % (Manual) 43 L Band Neutrophils % 33 H* Lymphocytes % (Manual) 5 L Reactive Lymphs % 2 H Monocytes % (Manual) TEST NOT PERFORMED Metamyelocytes % 7 H Myelocytes % 10 H Nucleated RBC % 14 H Platelet Estimate Decreased L Polychromasia Slight Hypochromasia (manual) Slight Anisocytosis (manual) Slight Schistocytes Slight Puncture Site Rr pCO2 69 H pO2 111 H HCO3 24.0 ABG pH 7.21 L ABG Total CO2 29.7 H ABG O2 Saturation 99.2 H ABG Base Excess -1.2 ABG Hemoglobin 10.2 L ABG Carboxyhemoglobin 2.6 H POC ABG HHb (Measured) 0.8 ABG Methemoglobin 1.0 Jt Test Pos A-a O2 Difference 516.0 Respiratory Index 4.6 Hgb O2 Saturation 95.6 Vent Mode Prvc Mechanical Rate 24 FiO2 100.0 Tidal Volume 550 PEEP 8 Sodium Potassium Chloride Carbon Dioxide Anion Gap BUN Creatinine Est GFR ( Amer) Est GFR (Non-Af Amer) POC Glucose (mg/dL) 166 H Random Glucose Calcium Phosphorus Magnesium Total Bilirubin AST ALT Alkaline Phosphatase Total Protein Albumin Globulin Albumin/Globulin Ratio Random Vancomycin 10/31/17 10/31/17 06:19 06:19 WBC RBC Hgb Hct MCV MCH MCHC RDW Plt Count MPV Neut % (Auto) Lymph % (Auto) [place] % (Auto) Eos % (Auto) Baso % (Auto) Neut # (Auto) Lymph # (Auto) [place] # (Auto) Eos # (Auto) Baso # (Auto) Neutrophils % (Manual) Band Neutrophils % Lymphocytes % (Manual) Reactive Lymphs % Monocytes % (Manual) Metamyelocytes % Myelocytes % Nucleated RBC % Platelet Estimate Polychromasia Hypochromasia (manual) Anisocytosis (manual) Schistocytes Puncture Site pCO2 pO2 HCO3 ABG pH ABG Total CO2 ABG O2 Saturation ABG Base Excess ABG Hemoglobin ABG Carboxyhemoglobin POC ABG HHb (Measured) ABG Methemoglobin Jt Test A-a O2 Difference Respiratory Index Hgb O2 Saturation Vent Mode Mechanical Rate FiO2 Tidal Volume PEEP Sodium 151 H Potassium 5.4 H Chloride 111 H Carbon Dioxide 29 Anion Gap 16 BUN 87 H Creatinine 3.4 H Est GFR ( Amer) 22 Est GFR (Non-Af Amer) 18 POC Glucose (mg/dL) Random Glucose 158 H Calcium 7.6 L Phosphorus 4.3 Magnesium 2.5 H Total Bilirubin 4.2 H AST 105 H D ALT 48 Alkaline Phosphatase 491 H D Total Protein 5.5 L Albumin 2.3 L Globulin 3.1 Albumin/Globulin Ratio 0.7 L Random Vancomycin 31.5 Fingerstick Blood Sugar Results: 166 Critical Care Progress Note - Nutrition Nutrition: Nutrition Category Date Time Status NPO Diet [DIET] Diets 10/27/17 Lunch Active Assessment/Plan - Assessment and Plan (Free Text) Assessment: This is a 62 year old male with PMHx of Anxiety, Alzhiemer's, HTN, 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 Patient is s/p code blue - 1 round epi, 1 bolus Amio, intubated- 10/26. Admitted to the ICU for NSTEMI, Septic shock, ANDRES with metabolic acidosis, Hypoxic and Hypercapneic respiratory failure ARDS vs PE?, currently intubated on fentanyl, versed, and on levo. Plan: Neuro: GCS 7T Intubated, versed and fentanyl A: AMS - Head CT: negative for any acute bleed A: Alzhiemer's - Aricept Cardio: A: S/P Cardiac Arrest A: HTN - On levo Pulm: A: Hypoxic and Hypercapneic Respiratory Failure - Suspected ARDS versus PE - Intubated on PRVC - ECHO LVEF 53%, flattened septum consistent with RV volume and pressure overload. - CT chest/ ab/pelvis: confirmed mets Heme/Onc: A: Stage IV Small Cell Lung Cancer - Liver, kidney, brain mets, and now pancreatic metastasis A: Anemia of Chronic Disease - 2/2 Malignancy A: Pancytopenia - 2/2 Malignancy Renal: A: Metabolic Acidosis resolved - Bicarb drip DC'd ID: A: Sepsis? - Likely reactive response 2/2 cardiac arrest - Leukocytosis, bandemia, lactate 4.0 -> 2.1 -> 1,3 - Started on Aztreonam (10/20), Doxy (10/27), Flagyl (10/20), Vanco Q12 (10/27), Avelox 10/27 - Lambert cultures - negative to date A: Aspiration Pneumonia - Started on Aztreonam (10/20), Flagyl (10/20), Vanco Q12 (10/27), Avelox 10/27 Prophylaxis: - Pepcid daily - SCDs - Lines: Right Fem TLC - 10/27 - Right permacath - Prognosis guarded - Started NGT feeds Disposition: Patient is full code. Will speak to palliative to speak to family to determine goals of care, given poor prognosis, and decline. Plan for family meeting 10/31/17. Becka Carpio Dr., DO, PGY-1 <Napoleon Bueno - Last Filed: 10/31/17 17:07> CCU Objective - Vital Signs / Intake & Output Vital Signs (Last 4 hours): Vital Signs Temp Pulse Resp BP Pulse Ox 10/31/17 16:01 121 H 14 88/54 L 99 10/31/17 16:00 122 H 19 99 10/31/17 15:01 124 H 12 92/65 L 99 10/31/17 15:00 123 H 13 99 10/31/17 14:01 125 H 14 93/64 L 99 10/31/17 14:00 98.5 F 125 H 15 99 Intake and Output (Last 8hrs): Intake & Output 10/31/17 10/31/17 10/31/17 06:59 14:59 22:59 Intake Total 1173.6 938.5 128.4 Output Total 43 45 5 Balance 1130.6 893.5 123.4 Intake: IV 398 361.5 Intake, IV Amount 415.6 157.0 38.4 Right Medial Port Femoral 60.0 85.1 30.4 Right Port-A-Cath 334.6 47.9 Right Proximal Port 21 24 8 Femoral Tube Feeding 360 360 90 Other 60 Output: Gastric Amount 30 Left 30 Urine 43 15 5 Urethral (Clay) 43 15 5 Other: # Bowel Movements 0 0 - Medications Active Medications: Active Medications Generic Name Dose Route Start Last Admin Trade Name Freq PRN Reason Stop Dose Admin Albuterol/Ipratropium 3 ml 10/26/17 20:00 10/31/17 13:28 Duoneb 3 Mg/0.5 Mg (3 Ml) Ud INH 3 ml RQ6 LISA Administration Ascorbic Acid 500 mg 10/28/17 11:00 10/31/17 09:54 Vitamin C 500 Mg Tab PO 500 mg DAILY LISA Administration Famotidine 20 mg 10/22/17 10:00 10/31/17 09:55 Pepcid PO 20 mg DAILY LISA Administration Hydrocortisone Sodium Succinate 50 mg 10/28/17 18:30 10/31/17 12:19 Solu-Cortef IV 50 mg Q6H LISA Administration Norepinephrine Bitartrate 4 mg 254 mls @ 15.24 mls/hr 10/27/17 08:30 11:30 / Dextrose IV 4 mcg/min .[id number] PRN 15.24 mls/hr TITRATE PER MD ORDER Titration Protocol 4 MCG/MIN Fentanyl Citrate 2,500 mcg/ 250 mls @ 19.05 mls/hr 10/28/17 20:30 10/31/17 13 :10 Sodium Chloride IV 5 mcg/kg/hr .Q13H8M PRN 47.62 mls/hr Protocol Administration 2 MCG/KG/HR Midazolam HCl 100 mg/ Dextrose 100 mls @ 1.9 mls/hr 10/29/17 22:15 10/31/17 09:03 IV 0.04 mg/kg/hr .Q24H LISA 4 mls/hr Protocol Titration 0.02 MG/KG/HR Aztreonam 1 gm/ Sodium 100 mls @ 200 mls/hr 10/31/17 15:00 10/31/17 15:38 Chloride IVPB 200 mls/hr Q12H LISA Administration Protocol Insulin Aspart 0 unit 10/28/17 18:30 10/31/17 12:19 Novolog SC 3 units Q6H LISA Administration Protocol Lactulose 20 gm 10/28/17 10:57 Enulose NG Q8H PRN Constipation Moxifloxacin HCl 400 mg 11/01/17 10:00 Avelox PO DAILY [facility] Ondansetron HCl 4 mg 10/20/17 18:06 Zofran Inj IVP Q6 PRN Nausea/Vomiting Vitamin A 0 applic 10/27/17 12:09 10/27/17 17:02 Vitamin A&D TP 1 applic Q8 PRN Administration Dry skin - Patient Studies Lab Studies: Microbiology Studies 10/27/17 10:41 Blood Culture - Preliminary Blood-Venous NO GROWTH AFTER 4 DAYS 10/27/17 09:15 Blood Culture - Preliminary Blood-Venous NO GROWTH AFTER 4 DAYS Lab Studies 10/31/17 10/31/17 10/31/17 Range/Units 11:58 06:19 06:19 WBC (4.8-10.8) K/uL RBC (4.40-5.90) Mil/uL Hgb (12.0-18.0) g/dL Hct (35.0-51.0) % MCV (80.0-94.0) fL MCH (27.0-31.0) pg MCHC (33.0-37.0) g/dL RDW (11.5-14.5) % Plt Count (130-400) K/uL MPV (7.2-11.7) fL Neut % (Auto) (50.0-75.0) % Lymph % (Auto) (20.0-40.0) % [place] % (Auto) (0.0-10.0) % Eos % (Auto) (0.0-4.0) % Baso % (Auto) (0.0-2.0) % Neut # (Auto) (1.8-7.0) K/uL Lymph # (Auto) (1.0-4.3) K/uL [place] # (Auto) (0.0-0.8) K/uL Eos # (Auto) (0.0-0.7) K/uL Baso # (Auto) (0.0-0.2) K/uL Neutrophils % (Manual) (50-75) % Band Neutrophils % (0-2) % Lymphocytes % (Manual) (20-40) % Reactive Lymphs % (0-0) % Monocytes % (Manual) Metamyelocytes % (0-0) % Myelocytes % (0-0) % Nucleated RBC % (0-0) % Platelet Estimate (NORMAL) Polychromasia Hypochromasia (manual) Anisocytosis (manual) Schistocytes Puncture Site pCO2 (35-45) mm/Hg pO2 (80-100) mm/Hg HCO3 (21-28) mmol/L ABG pH (7.35-7.45) ABG Total CO2 (22-28) mmol/L ABG O2 Saturation (95-98) % ABG Base Excess (-2.0-3.0) mmol/L ABG Hemoglobin (11.7-17.4) g/dL ABG Carboxyhemoglobin (0.5-1.5) % POC ABG HHb (Measured) (0.0-5.0) % ABG Methemoglobin (0.0-3.0) % Jt Test A-a O2 Difference mm/Hg Respiratory Index Hgb O2 Saturation (95.0-98.0) % Vent Mode Mechanical Rate FiO2 % Tidal Volume PEEP Sodium 151 H (132-148) mmol/L Potassium 5.4 H (3.6-5.2) mmol/L Chloride 111 H (98-107) mmol/L Carbon Dioxide 29 (22-30) mmol/L Anion Gap 16 (10-20) BUN 87 H (9-20) mg/dL Creatinine 3.4 H (0.8-1.5) mg/dL Est GFR ( Amer) 22 Est GFR (Non-Af Amer) 18 POC Glucose (mg/dL) 217 H (65-110) mg/dL Random Glucose 158 H (75-110) mg/dL Calcium 7.6 L (8.6-10.4) mg/dl Phosphorus 4.3 (2.5-4.5) mg/dL Magnesium 2.5 H (1.6-2.3) mg/dL Total Bilirubin 4.2 H (0.2-1.3) mg/dL AST 105 H D (17-59) U/L ALT 48 (21-72) U/L Alkaline Phosphatase 491 H D (38-126) U/L Total Protein 5.5 L (6.3-8.3) g/dL Albumin 2.3 L (3.5-5.0) g/dL Globulin 3.1 (2.2-3.9) gm/dL Albumin/Globulin Ratio 0.7 L (1.0-2.1) Random Vancomycin 31.5 ug/mL 10/31/17 10/31/17 10/31/17 Range/Units 06:19 06:17 04:20 WBC 30.7 H (4.8-10.8) K/uL RBC 2.87 L (4.40-5.90) Mil/uL Hgb 7.8 L (12.0-18.0) g/dL Hct 23.3 L (35.0-51.0) % MCV 81.1 (80.0-94.0) fL MCH 27.3 (27.0-31.0) pg MCHC 33.7 (33.0-37.0) g/dL RDW 22.3 H (11.5-14.5) % Plt Count 33 L (130-400) K/uL MPV 4.6 L (7.2-11.7) fL Neut % (Auto) 88.0 H (50.0-75.0) % Lymph % (Auto) 9.0 L (20.0-40.0) % [place] % (Auto) 2.8 (0.0-10.0) % Eos % (Auto) 0.0 (0.0-4.0) % Baso % (Auto) 0.2 (0.0-2.0) % Neut # (Auto) 27.0 H (1.8-7.0) K/uL Lymph # (Auto) 2.8 (1.0-4.3) K/uL [place] # (Auto) 0.9 H (0.0-0.8) K/uL Eos # (Auto) 0.0 (0.0-0.7) K/uL Baso # (Auto) 0.0 (0.0-0.2) K/uL Neutrophils % (Manual) 43 L (50-75) % Band Neutrophils % 33 H* (0-2) % Lymphocytes % (Manual) 5 L (20-40) % Reactive Lymphs % 2 H (0-0) % Monocytes % (Manual) TEST NOT PERFORMED Metamyelocytes % 7 H (0-0) % Myelocytes % 10 H (0-0) % Nucleated RBC % 14 H (0-0) % Platelet Estimate Decreased L (NORMAL) Polychromasia Slight Hypochromasia (manual) Slight Anisocytosis (manual) Slight Schistocytes Slight Puncture Site Rr pCO2 69 H (35-45) mm/Hg pO2 111 H (80-100) mm/Hg HCO3 24.0 (21-28) mmol/L ABG pH 7.21 L (7.35-7.45) ABG Total CO2 29.7 H (22-28) mmol/L ABG O2 Saturation 99.2 H (95-98) % ABG Base Excess -1.2 (-2.0-3.0) mmol/L ABG Hemoglobin 10.2 L (11.7-17.4) g/dL ABG Carboxyhemoglobin 2.6 H (0.5-1.5) % POC ABG HHb (Measured) 0.8 (0.0-5.0) % ABG Methemoglobin 1.0 (0.0-3.0) % Jt Test Pos A-a O2 Difference 516.0 mm/Hg Respiratory Index 4.6 Hgb O2 Saturation 95.6 (95.0-98.0) % Vent Mode Prvc Mechanical Rate 24 FiO2 100.0 % Tidal Volume 550 PEEP 8 Sodium (132-148) mmol/L Potassium (3.6-5.2) mmol/L Chloride (98-107) mmol/L Carbon Dioxide (22-30) mmol/L Anion Gap (10-20) BUN (9-20) mg/dL Creatinine (0.8-1.5) mg/dL Est GFR ( Amer) Est GFR (Non-Af Amer) POC Glucose (mg/dL) 166 H (65-110) mg/dL Random Glucose (75-110) mg/dL Calcium (8.6-10.4) mg/dl Phosphorus (2.5-4.5) mg/dL Magnesium (1.6-2.3) mg/dL Total Bilirubin (0.2-1.3) mg/dL AST (17-59) U/L ALT (21-72) U/L Alkaline Phosphatase (38-126) U/L Total Protein (6.3-8.3) g/dL Albumin (3.5-5.0) g/dL Globulin (2.2-3.9) gm/dL Albumin/Globulin Ratio (1.0-2.1) Random Vancomycin ug/mL 10/30/17 10/30/17 10/30/17 Range/Units 23:27 17:46 11:28 WBC (4.8-10.8) K/uL RBC (4.40-5.90) Mil/uL Hgb (12.0-18.0) g/dL Hct (35.0-51.0) % MCV (80.0-94.0) fL MCH (27.0-31.0) pg MCHC (33.0-37.0) g/dL RDW (11.5-14.5) % Plt Count (130-400) K/uL MPV (7.2-11.7) fL Neut % (Auto) (50.0-75.0) % Lymph % (Auto) (20.0-40.0) % [place] % (Auto) (0.0-10.0) % Eos % (Auto) (0.0-4.0) % Baso % (Auto) (0.0-2.0) % Neut # (Auto) (1.8-7.0) K/uL Lymph # (Auto) (1.0-4.3) K/uL [place] # (Auto) (0.0-0.8) K/uL Eos # (Auto) (0.0-0.7) K/uL Baso # (Auto) (0.0-0.2) K/uL Neutrophils % (Manual) (50-75) % Band Neutrophils % (0-2) % Lymphocytes % (Manual) (20-40) % Reactive Lymphs % (0-0) % Monocytes % (Manual) Metamyelocytes % (0-0) % Myelocytes % (0-0) % Nucleated RBC % (0-0) % Platelet Estimate (NORMAL) Polychromasia Hypochromasia (manual) Anisocytosis (manual) Schistocytes Puncture Site pCO2 (35-45) mm/Hg pO2 (80-100) mm/Hg HCO3 (21-28) mmol/L ABG pH (7.35-7.45) ABG Total CO2 (22-28) mmol/L ABG O2 Saturation (95-98) % ABG Base Excess (-2.0-3.0) mmol/L ABG Hemoglobin (11.7-17.4) g/dL ABG Carboxyhemoglobin (0.5-1.5) % POC ABG HHb (Measured) (0.0-5.0) % ABG Methemoglobin (0.0-3.0) % Jt Test A-a O2 Difference mm/Hg Respiratory Index Hgb O2 Saturation (95.0-98.0) % Vent Mode Mechanical Rate FiO2 % Tidal Volume PEEP Sodium (132-148) mmol/L Potassium (3.6-5.2) mmol/L Chloride (98-107) mmol/L Carbon Dioxide (22-30) mmol/L Anion Gap (10-20) BUN (9-20) mg/dL Creatinine (0.8-1.5) mg/dL Est GFR ( Amer) Est GFR (Non-Af Amer) POC Glucose (mg/dL) 178 H 185 H 187 H (65-110) mg/dL Random Glucose (75-110) mg/dL Calcium (8.6-10.4) mg/dl Phosphorus (2.5-4.5) mg/dL Magnesium (1.6-2.3) mg/dL Total Bilirubin (0.2-1.3) mg/dL AST (17-59) U/L ALT (21-72) U/L Alkaline Phosphatase (38-126) U/L Total Protein (6.3-8.3) g/dL Albumin (3.5-5.0) g/dL Globulin (2.2-3.9) gm/dL Albumin/Globulin Ratio (1.0-2.1) Random Vancomycin ug/mL Laboratory Results - last 24 hr 10/30/17 10/30/17 10/30/17 11:28 17:46 23:27 WBC RBC Hgb Hct MCV MCH MCHC RDW Plt Count MPV Neut % (Auto) Lymph % (Auto) [place] % (Auto) Eos % (Auto) Baso % (Auto) Neut # (Auto) Lymph # (Auto) [place] # (Auto) Eos # (Auto) Baso # (Auto) Neutrophils % (Manual) Band Neutrophils % Lymphocytes % (Manual) Reactive Lymphs % Monocytes % (Manual) Metamyelocytes % Myelocytes % Nucleated RBC % Platelet Estimate Polychromasia Hypochromasia (manual) Anisocytosis (manual) Schistocytes Puncture Site pCO2 pO2 HCO3 ABG pH ABG Total CO2 ABG O2 Saturation ABG Base Excess ABG Hemoglobin ABG Carboxyhemoglobin POC ABG HHb (Measured) ABG Methemoglobin Jt Test A-a O2 Difference Respiratory Index Hgb O2 Saturation Vent Mode Mechanical Rate FiO2 Tidal Volume PEEP Sodium Potassium Chloride Carbon Dioxide Anion Gap BUN Creatinine Est GFR ( Amer) Est GFR (Non-Af Amer) POC Glucose (mg/dL) 187 H 185 H 178 H Random Glucose Calcium Phosphorus Magnesium Total Bilirubin AST ALT Alkaline Phosphatase Total Protein Albumin Globulin Albumin/Globulin Ratio Random Vancomycin 10/31/17 10/31/17 10/31/17 04:20 06:17 06:19 WBC 30.7 H RBC 2.87 L Hgb 7.8 L Hct 23.3 L MCV 81.1 MCH 27.3 MCHC 33.7 RDW 22.3 H Plt Count 33 L MPV 4.6 L Neut % (Auto) 88.0 H Lymph % (Auto) 9.0 L [place] % (Auto) 2.8 Eos % (Auto) 0.0 Baso % (Auto) 0.2 Neut # (Auto) 27.0 H Lymph # (Auto) 2.8 [place] # (Auto) 0.9 H Eos # (Auto) 0.0 Baso # (Auto) 0.0 Neutrophils % (Manual) 43 L Band Neutrophils % 33 H* Lymphocytes % (Manual) 5 L Reactive Lymphs % 2 H Monocytes % (Manual) TEST NOT PERFORMED Metamyelocytes % 7 H Myelocytes % 10 H Nucleated RBC % 14 H Platelet Estimate Decreased L Polychromasia Slight Hypochromasia (manual) Slight Anisocytosis (manual) Slight Schistocytes Slight Puncture Site Rr pCO2 69 H pO2 111 H HCO3 24.0 ABG pH 7.21 L ABG Total CO2 29.7 H ABG O2 Saturation 99.2 H ABG Base Excess -1.2 ABG Hemoglobin 10.2 L ABG Carboxyhemoglobin 2.6 H POC ABG HHb (Measured) 0.8 ABG Methemoglobin 1.0 Jt Test Pos A-a O2 Difference 516.0 Respiratory Index 4.6 Hgb O2 Saturation 95.6 Vent Mode Prvc Mechanical Rate 24 FiO2 100.0 Tidal Volume 550 PEEP 8 Sodium Potassium Chloride Carbon Dioxide Anion Gap BUN Creatinine Est GFR ( Amer) Est GFR (Non-Af Amer) POC Glucose (mg/dL) 166 H Random Glucose Calcium Phosphorus Magnesium Total Bilirubin AST ALT Alkaline Phosphatase Total Protein Albumin Globulin Albumin/Globulin Ratio Random Vancomycin 10/31/17 10/31/17 10/31/17 06:19 06:19 11:58 WBC RBC Hgb Hct MCV MCH MCHC RDW Plt Count MPV Neut % (Auto) Lymph % (Auto) [place] % (Auto) Eos % (Auto) Baso % (Auto) Neut # (Auto) Lymph # (Auto) [place] # (Auto) Eos # (Auto) Baso # (Auto) Neutrophils % (Manual) Band Neutrophils % Lymphocytes % (Manual) Reactive Lymphs % Monocytes % (Manual) Metamyelocytes % Myelocytes % Nucleated RBC % Platelet Estimate Polychromasia Hypochromasia (manual) Anisocytosis (manual) Schistocytes Puncture Site pCO2 pO2 HCO3 ABG pH ABG Total CO2 ABG O2 Saturation ABG Base Excess ABG Hemoglobin ABG Carboxyhemoglobin POC ABG HHb (Measured) ABG Methemoglobin Jt Test A-a O2 Difference Respiratory Index Hgb O2 Saturation Vent Mode Mechanical Rate FiO2 Tidal Volume PEEP Sodium 151 H Potassium 5.4 H Chloride 111 H Carbon Dioxide 29 Anion Gap 16 BUN 87 H Creatinine 3.4 H Est GFR ( Amer) 22 Est GFR (Non-Af Amer) 18 POC Glucose (mg/dL) 217 H Random Glucose 158 H Calcium 7.6 L Phosphorus 4.3 Magnesium 2.5 H Total Bilirubin 4.2 H AST 105 H D ALT 48 Alkaline Phosphatase 491 H D Total Protein 5.5 L Albumin 2.3 L Globulin 3.1 Albumin/Globulin Ratio 0.7 L Random Vancomycin 31.5 Critical Care Progress Note - Nutrition Nutrition: Nutrition Category Date Time Status NPO Diet [DIET] Diets 10/27/17 Lunch Active Attending/Attestation - Attestation I have personally seen and examined this patient.: Yes I have fully participated in the care of the patient.: Yes I have reviewed all pertinent clinical information: Yes Notes (Text): 10/31/17 17:07 Patient seen and examined in the intensive care unit. Remained intubated on ventilatory support Patient is sedated awaiting Family decision for terminal extubation
--- NOTE | 2017-10-31 10:26 | CP.PCM.PCO ---
Physician Communication Note - Physician Communication Note Physician Communication Note: Fsam meeting today at 3 pm, poss term extubation
--- NOTE | 2017-10-31 11:40 | CP.PCM.PN ---
Subjective - Date & Time of Evaluation Date of Evaluation: 10/31/17 Time of Evaluation: 11:34 - Subjective Subjective: F/U lung CA On vent and pressors. NG feeds tolerated Multi system organ failure and sepsis worsening. Dismal prognosis. Objective - Vital Signs/Intake and Output Vital Signs (last 24 hours): Temp Pulse Resp BP Pulse Ox 98.6 F 127 H 17 122/77 99 10/31/17 09:03 10/31/17 08:21 10/31/17 08:21 10/31/17 08:21 10/31/17 08:21 Intake and Output: 10/31/17 10/31/17 06:59 18:59 Intake Total 1581.8 446.5 Output Total 43 35 Balance 1538.8 411.5 - Medications Medications: Current Medications Albuterol/Ipratropium (Duoneb 3 Mg/0.5 Mg (3 Ml) Ud) 3 ml INH RQ6 [facility] Last Admin: 10/31/17 07:10 Dose: 3 ml Ascorbic Acid (Vitamin C 500 Mg Tab) 500 mg PO DAILY [facility] Last Admin: 10/31/17 09:54 Dose: 500 mg Famotidine (Pepcid) 20 mg PO DAILY [facility] Last Admin: 10/31/17 09:55 Dose: 20 mg Hydrocortisone Sodium Succinate (Solu-Cortef) 50 mg IV Q6H [facility] Last Admin: 10/31/17 05:33 Dose: 50 mg Aztreonam 2 gm/ Sodium (Chloride) 100 mls @ 200 mls/hr IVPB Q8H [facility] PRN Reason: Protocol Last Admin: 10/31/17 05:34 Dose: 200 mls/hr Norepinephrine Bitartrate 4 mg (/ Dextrose) 254 mls @ 15.24 mls/hr IV .[id number] PRN; Protocol; 4 MCG/MIN PRN Reason: TITRATE PER MD ORDER Last Titration: 10/31/17 10:59 Dose: 3 mcg/min, 11.43 mls/hr Fentanyl Citrate 2,500 mcg/ (Sodium Chloride) 250 mls @ 19.05 mls/hr IV .Q13H8M PRN; 2 MCG/KG/HR PRN Reason: Protocol Last Titration: 10/31/17 08:29 Dose: 5 mcg/kg/hr, 47.62 mls/hr Midazolam HCl 100 mg/ Dextrose 100 mls @ 1.9 mls/hr IV .Q24H LISA; 0.02 MG/KG/HR PRN Reason: Protocol Last Titration: 10/31/17 09:03 Dose: 0.04 mg/kg/hr, 4 mls/hr Vancomycin/Sodium Chloride (Vancomycin 1 Gm/Ns 200 Ml) 1 gm in 200 mls @ 133 mls/hr IVPB DAILY [facility] PRN Reason: Protocol Stop: 11/05/17 10:01 Last Admin: 10/31/17 09:50 Dose: 133 mls/hr Insulin Aspart (Novolog) 0 unit SC Q6H [facility] PRN Reason: Protocol Last Admin: 10/31/17 06:41 Dose: 2 units Lactulose (Enulose) 20 gm NG Q8H PRN PRN Reason: Constipation Ondansetron HCl (Zofran Inj) 4 mg IVP Q6 PRN PRN Reason: Nausea/Vomiting Vitamin A (Vitamin A&D) 0 applic TP Q8 PRN PRN Reason: Dry skin Last Admin: 10/27/17 17:02 Dose: 1 applic - Labs Labs: 10/31/17 06:19 10/31/17 06:19 PT 17.7 SECONDS (9.7-12.2) H 10/29/17 11:22 INR 1.6 10/29/17 11:22 APTT 25 SECONDS (21-34) 10/29/17 11:22 - Constitutional Appears: Chronically Ill - Respiratory Exam Respiratory Exam: Decreased Breath Sounds - Cardiovascular Exam Cardiovascular Exam: REGULAR RHYTHM - GI/Abdominal Exam GI & Abdominal Exam: Soft, Mass (Enlarged palpable spleen). absent: Tenderness Assessment and Plan (1) Cyst of pancreas Status: Acute (2) Small cell lung cancer Status: Acute (3) Metastatic cancer Assessment & Plan: Now with sepsis and multisystem organ failure. Terminal wean to be discussed with family. Status: Acute
[2017-10-31] MEDS ORDERED: Moxifloxacin IV 400mg/250ml NS 400 MG/250 ML BAG IVPB SCH (14:30)
--- NOTE | 2017-10-31 15:31 | CP.PCM.PN ---
Subjective - Date & Time of Evaluation Date of Evaluation: 10/31/17 Time of Evaluation: 02:45 - Subjective Subjective: DICTATED Objective - Vital Signs/Intake and Output Vital Signs (last 24 hours): Temp Pulse Resp BP Pulse Ox 98.6 F 140 H 26 H 97/70 L 90 L 10/31/17 09:03 10/31/17 12:05 10/31/17 12:05 10/31/17 12:05 10/31/17 12:05 Intake and Output: 10/31/17 10/31/17 06:59 18:59 Intake Total 1581.8 808.2 Output Total 43 40 Balance 1538.8 768.2 - Medications Medications: Current Medications Albuterol/Ipratropium (Duoneb 3 Mg/0.5 Mg (3 Ml) Ud) 3 ml INH RQ6 [facility] Last Admin: 10/31/17 13:28 Dose: 3 ml Ascorbic Acid (Vitamin C 500 Mg Tab) 500 mg PO DAILY [facility] Last Admin: 10/31/17 09:54 Dose: 500 mg Famotidine (Pepcid) 20 mg PO DAILY [facility] Last Admin: 10/31/17 09:55 Dose: 20 mg Hydrocortisone Sodium Succinate (Solu-Cortef) 50 mg IV Q6H [facility] Last Admin: 10/31/17 12:19 Dose: 50 mg Norepinephrine Bitartrate 4 mg (/ Dextrose) 254 mls @ 15.24 mls/hr IV .[id number] PRN; Protocol; 4 MCG/MIN PRN Reason: TITRATE PER MD ORDER Last Titration: 10/31/17 11:30 Dose: 4 mcg/min, 15.24 mls/hr Fentanyl Citrate 2,500 mcg/ (Sodium Chloride) 250 mls @ 19.05 mls/hr IV .Q13H8M PRN; 2 MCG/KG/HR PRN Reason: Protocol Last Admin: 10/31/17 13:10 Dose: 5 mcg/kg/hr, 47.62 mls/hr Midazolam HCl 100 mg/ Dextrose 100 mls @ 1.9 mls/hr IV .Q24H LISA; 0.02 MG/KG/HR PRN Reason: Protocol Last Titration: 10/31/17 09:03 Dose: 0.04 mg/kg/hr, 4 mls/hr Aztreonam 1 gm/ Sodium (Chloride) 100 mls @ 200 mls/hr IVPB Q12H [facility] PRN Reason: Protocol Moxifloxacin HCl (Avelox Iv 400mg/250ml Ns) 400 mg in 250 mls @ 167 mls/hr IVPB Q24H [facility] PRN Reason: Protocol Insulin Aspart (Novolog) 0 unit SC Q6H [facility] PRN Reason: Protocol Last Admin: 10/31/17 12:19 Dose: 3 units Lactulose (Enulose) 20 gm NG Q8H PRN PRN Reason: Constipation Ondansetron HCl (Zofran Inj) 4 mg IVP Q6 PRN PRN Reason: Nausea/Vomiting Vitamin A (Vitamin A&D) 0 applic TP Q8 PRN PRN Reason: Dry skin Last Admin: 10/27/17 17:02 Dose: 1 applic - Labs Labs: 10/31/17 06:19 10/31/17 06:19 PT 17.7 SECONDS (9.7-12.2) H 10/29/17 11:22 INR 1.6 10/29/17 11:22 APTT 25 SECONDS (21-34) 10/29/17 11:22
[2017-10-31] MEDS: Aztreonam 1 GM in Sodium Chloride 0.9% 100 ML IVPB SCH (15:38)
--- NOTE | 2017-10-31 16:12 | CP.PCM.PN ---
Subjective - Date & Time of Evaluation Date of Evaluation: 10/31/17 Time of Evaluation: 02:00 - Subjective Subjective: patient is intubated, on Versed and Phentanyl, looking vry sick. HR 122, poor urine output. 100% O2 va MV. Weaning trial tried this morning and patient could not tolerate it at all. Considering removal of life support. Objective - Vital Signs/Intake and Output Vital Signs (last 24 hours): Temp Pulse Resp BP Pulse Ox 98.6 F 140 H 26 H 97/70 L 90 L 10/31/17 09:03 10/31/17 12:05 10/31/17 12:05 10/31/17 12:05 10/31/17 12:05 Intake and Output: 10/31/17 10/31/17 06:59 18:59 Intake Total 1581.8 1002.7 Output Total 43 50 Balance 1538.8 952.7 - Medications Medications: Current Medications Albuterol/Ipratropium (Duoneb 3 Mg/0.5 Mg (3 Ml) Ud) 3 ml INH RQ6 [facility] Last Admin: 10/31/17 13:28 Dose: 3 ml Ascorbic Acid (Vitamin C 500 Mg Tab) 500 mg PO DAILY [facility] Last Admin: 10/31/17 09:54 Dose: 500 mg Famotidine (Pepcid) 20 mg PO DAILY [facility] Last Admin: 10/31/17 09:55 Dose: 20 mg Hydrocortisone Sodium Succinate (Solu-Cortef) 50 mg IV Q6H [facility] Last Admin: 10/31/17 12:19 Dose: 50 mg Norepinephrine Bitartrate 4 mg (/ Dextrose) 254 mls @ 15.24 mls/hr IV .[id number] PRN; Protocol; 4 MCG/MIN PRN Reason: TITRATE PER MD ORDER Last Titration: 10/31/17 11:30 Dose: 4 mcg/min, 15.24 mls/hr Fentanyl Citrate 2,500 mcg/ (Sodium Chloride) 250 mls @ 19.05 mls/hr IV .Q13H8M PRN; 2 MCG/KG/HR PRN Reason: Protocol Last Admin: 10/31/17 13:10 Dose: 5 mcg/kg/hr, 47.62 mls/hr Midazolam HCl 100 mg/ Dextrose 100 mls @ 1.9 mls/hr IV .Q24H LISA; 0.02 MG/KG/HR PRN Reason: Protocol Last Titration: 10/31/17 09:03 Dose: 0.04 mg/kg/hr, 4 mls/hr Aztreonam 1 gm/ Sodium (Chloride) 100 mls @ 200 mls/hr IVPB Q12H [facility] PRN Reason: Protocol Last Admin: 10/31/17 15:38 Dose: 200 mls/hr Moxifloxacin HCl (Avelox Iv 400mg/250ml Ns) 400 mg in 250 mls @ 167 mls/hr IVPB Q24H [facility] PRN Reason: Protocol Insulin Aspart (Novolog) 0 unit SC Q6H [facility] PRN Reason: Protocol Last Admin: 10/31/17 12:19 Dose: 3 units Lactulose (Enulose) 20 gm NG Q8H PRN PRN Reason: Constipation Ondansetron HCl (Zofran Inj) 4 mg IVP Q6 PRN PRN Reason: Nausea/Vomiting Vitamin A (Vitamin A&D) 0 applic TP Q8 PRN PRN Reason: Dry skin Last Admin: 10/27/17 17:02 Dose: 1 applic - Labs Labs: 10/31/17 06:19 10/31/17 06:19 PT 17.7 SECONDS (9.7-12.2) H 10/29/17 11:22 INR 1.6 10/29/17 11:22 APTT 25 SECONDS (21-34) 10/29/17 11:22 - Constitutional Appears: In Acute Distress - Head Exam Head Exam: ATRAUMATIC, NORMAL INSPECTION, NORMOCEPHALIC - Eye Exam Eye Exam: EOMI, Normal appearance, PERRL Pupil Exam: NORMAL ACCOMODATION, PERRL - ENT Exam Additional comments: ET tube - Respiratory Exam Additional comments: On 100 % O2 via MV - Cardiovascular Exam Cardiovascular Exam: Tachycardia - GI/Abdominal Exam GI & Abdominal Exam: Distended, Firm - Rectal Exam Rectal Exam: Deferred - Exam Exam: NORMAL INSPECTION - Extremities Exam Extremities Exam: Normal Inspection - Back Exam Back Exam: NORMAL INSPECTION - Neurological Exam Neurological Exam: Motor Sensory Deficit Neuro motor strength exam: Left Upper Extremity: 0, Right Upper Extremity: 0, Left Lower Extremity: 0, Right Lower Extremity: 0 - Psychiatric Exam Psychiatric exam: Flat Affect - Skin Skin Exam: Pallor Assessment and Plan - Assessment and Plan (Free Text) Assessment: Family meeting attended by patient's son, daughter, sister, son in law, Doctor Anabell, Back Strip Machine Operator Eva and my self. Patient's clinical presentation reviewed and declared as terminal. Before Doctor Hung came in, I reviewed new developments in patient's status including failed weaning trial this morning and need for Fentanyl and Versed to promote comfort. Sister and son hade a lot of questions, indicating not being ready to accept terminal diagnosis. The daughter and son in law stayed quiet. Doctor Hung reviewed all important points of care since 3 months ago when patient was first time diagnosed with cancer. Using very gentle words we were able to bring this meeting to the conclusion that terminal extubation and promotion of natural was the most appropriate intervention at this time and in accordance with patient's wishes. Family was than allowed private time to make final decision. Impression * Acutely ill man on Full Life support * Prognosis terminal * Some family members are in denial * Patient's wishes were NO to be kept on life support if recovery not expected, POLST on chart Suggestion * Continue Phentanyl and Versed for comfort * Remove life support when family ready, using Terminal extubatin protocol to promote comfortable Advance planing time 45 min
--- NOTE | 2017-10-31 20:33 | PN ---
DATE: 10/31/2017 SUBJECTIVE: The patient remains still sedated, and he is on 100% oxygen and PEEP. He still seems to be uncomfortable and he remains tachycardic and his white count is going up. His daughter was at the bedside and sister is also there and I told them that the patient is having multiorgan failure at this time. He is on multiple antibiotics. His kidney function is also decreased, platelets are decreasing. PHYSICAL EXAMINATION: VITAL SIGNS: His temp was 98.6, heart rate of 114, he is on a vent and oxygen saturation is 93%. GENERAL: Even on the machine, he appears tachypneic. He remains sedated. NECK: Supple. LUNGS: Occasional rhonchi. HEART: S1 and S2, tachycardic. ABDOMEN: Flabby, nontender. No guarding. No rigidity present. EXTREMITIES: Have bilateral foot protectors and much. LABORATORY DATA: White count is 30.7, hemoglobin 7.8, hematocrit 23.3, platelet count is 33, his platelets are decreased. PH is 7.21, CO2 is 29, saturation is 99.2. Micro coburn, the sputum culture, blood culture and urine cultures were all negative. ASSESSMENT AND PLAN: His vancomycin random was 31.5 today, so I have discontinued vancomycin for now and I have decreased the Azactam as the dose was much higher and he will be getting 1 gm every 12 hours at this time, and we will follow. So, he will be on Avelox, Azactam and vancomycin level is still high, and the patient has a high vancomycin random level, so it still is there. Chest x-ray was done yesterday, it seems like the patient is in multiorgan failure with thrombocytopenia status post chemo with metastatic carcinoma, and prognosis remains poor, was discussed with the family, and he is also on Solu-Cortef now for sepsis and for thrombocytopenia, and we will follow. Juan Carlos Lomax MD
--- NOTE | 2017-10-31 21:20 | CP.PCM.PN ---
Subjective - Date & Time of Evaluation Date of Evaluation: 10/29/17 Time of Evaluation: 18:15 - Subjective Subjective: Vented Objective - Vital Signs/Intake and Output Vital Signs (last 24 hours): Temp Pulse Resp BP Pulse Ox 98.0 F 132 H 19 102/63 98 10/31/17 18:00 10/31/17 19:01 10/31/17 19:01 10/31/17 19:01 10/31/17 19:01 Intake and Output: 10/31/17 11/01/17 18:59 06:59 Intake Total 1541.25 168 Output Total 55 5 Balance 1486.25 163 - Medications Medications: Current Medications Albuterol/Ipratropium (Duoneb 3 Mg/0.5 Mg (3 Ml) Ud) 3 ml INH RQ6 [facility] Last Admin: 10/31/17 19:02 Dose: 3 ml Ascorbic Acid (Vitamin C 500 Mg Tab) 500 mg PO DAILY [facility] Last Admin: 10/31/17 09:54 Dose: 500 mg Famotidine (Pepcid) 20 mg PO DAILY [facility] Last Admin: 10/31/17 09:55 Dose: 20 mg Hydrocortisone Sodium Succinate (Solu-Cortef) 50 mg IV Q6H [facility] Last Admin: 10/31/17 18:14 Dose: 50 mg Norepinephrine Bitartrate 4 mg (/ Dextrose) 254 mls @ 15.24 mls/hr IV .[id number] PRN; Protocol; 4 MCG/MIN PRN Reason: TITRATE PER MD ORDER Last Admin: 10/31/17 17:45 Dose: 5 mcg/min, 19.05 mls/hr Fentanyl Citrate 2,500 mcg/ (Sodium Chloride) 250 mls @ 19.05 mls/hr IV .Q13H8M PRN; 2 MCG/KG/HR PRN Reason: Protocol Last Admin: 10/31/17 18:37 Dose: 5 mcg/kg/hr, 47.62 mls/hr Midazolam HCl 100 mg/ Dextrose 100 mls @ 1.9 mls/hr IV .Q24H LISA; 0.02 MG/KG/HR PRN Reason: Protocol Last Titration: 10/31/17 09:03 Dose: 0.04 mg/kg/hr, 4 mls/hr Aztreonam 1 gm/ Sodium (Chloride) 100 mls @ 200 mls/hr IVPB Q12H [facility] PRN Reason: Protocol Last Admin: 10/31/17 15:38 Dose: 200 mls/hr Insulin Aspart (Novolog) 0 unit SC Q6H [facility] PRN Reason: Protocol Last Admin: 10/31/17 18:13 Dose: 2 units Lactulose (Enulose) 20 gm NG Q8H PRN PRN Reason: Constipation Last Admin: 10/31/17 18:53 Dose: 20 gm Moxifloxacin HCl (Avelox) 400 mg PO DAILY [facility] Ondansetron HCl (Zofran Inj) 4 mg IVP Q6 PRN PRN Reason: Nausea/Vomiting Vitamin A (Vitamin A&D) 0 applic TP Q8 PRN PRN Reason: Dry skin Last Admin: 10/27/17 17:02 Dose: 1 applic - Labs Labs: 10/31/17 06:19 10/31/17 06:19 PT 17.7 SECONDS (9.7-12.2) H 10/29/17 11:22 INR 1.6 10/29/17 11:22 APTT 25 SECONDS (21-34) 10/29/17 11:22 - Head Exam Head Exam: ATRAUMATIC - Eye Exam Eye Exam: Normal appearance - ENT Exam ENT Exam: Mucous Membranes Dry - Respiratory Exam Respiratory Exam: NORMAL BREATHING PATTERN - Cardiovascular Exam Cardiovascular Exam: +S1, +S2 - GI/Abdominal Exam GI & Abdominal Exam: Normal Bowel Sounds Assessment and Plan (1) Leukocytosis Assessment & Plan: s/p growth factor support on antibiotics Status: Acute (2) Thrombocytopenia Assessment & Plan: likely secondary to chemotherapy fibrinogen normal Status: Acute (3) Anemia Assessment & Plan: chronic disease, recent chemotherapy Status: Acute (4) Pancreatitis Assessment & Plan: pancreatic metastasis, tumor necrosis causing inflammation Status: Acute (5) 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
--- NOTE | 2017-10-31 21:24 | CP.PCM.PN ---
Subjective - Date & Time of Evaluation Date of Evaluation: 10/30/17 Time of Evaluation: 13:00 - Subjective Subjective: Vented Objective - Vital Signs/Intake and Output Vital Signs (last 24 hours): Temp Pulse Resp BP Pulse Ox 98.0 F 132 H 19 102/63 98 10/31/17 18:00 10/31/17 19:01 10/31/17 19:01 10/31/17 19:01 10/31/17 19:01 Intake and Output: 10/31/17 11/01/17 18:59 06:59 Intake Total 1541.25 168 Output Total 55 5 Balance 1486.25 163 - Medications Medications: Current Medications Albuterol/Ipratropium (Duoneb 3 Mg/0.5 Mg (3 Ml) Ud) 3 ml INH RQ6 [facility] Last Admin: 10/31/17 19:02 Dose: 3 ml Ascorbic Acid (Vitamin C 500 Mg Tab) 500 mg PO DAILY [facility] Last Admin: 10/31/17 09:54 Dose: 500 mg Famotidine (Pepcid) 20 mg PO DAILY [facility] Last Admin: 10/31/17 09:55 Dose: 20 mg Hydrocortisone Sodium Succinate (Solu-Cortef) 50 mg IV Q6H [facility] Last Admin: 10/31/17 18:14 Dose: 50 mg Norepinephrine Bitartrate 4 mg (/ Dextrose) 254 mls @ 15.24 mls/hr IV .[id number] PRN; Protocol; 4 MCG/MIN PRN Reason: TITRATE PER MD ORDER Last Admin: 10/31/17 17:45 Dose: 5 mcg/min, 19.05 mls/hr Fentanyl Citrate 2,500 mcg/ (Sodium Chloride) 250 mls @ 19.05 mls/hr IV .Q13H8M PRN; 2 MCG/KG/HR PRN Reason: Protocol Last Admin: 10/31/17 18:37 Dose: 5 mcg/kg/hr, 47.62 mls/hr Midazolam HCl 100 mg/ Dextrose 100 mls @ 1.9 mls/hr IV .Q24H LISA; 0.02 MG/KG/HR PRN Reason: Protocol Last Titration: 10/31/17 09:03 Dose: 0.04 mg/kg/hr, 4 mls/hr Aztreonam 1 gm/ Sodium (Chloride) 100 mls @ 200 mls/hr IVPB Q12H [facility] PRN Reason: Protocol Last Admin: 10/31/17 15:38 Dose: 200 mls/hr Insulin Aspart (Novolog) 0 unit SC Q6H [facility] PRN Reason: Protocol Last Admin: 10/31/17 18:13 Dose: 2 units Lactulose (Enulose) 20 gm NG Q8H PRN PRN Reason: Constipation Last Admin: 10/31/17 18:53 Dose: 20 gm Moxifloxacin HCl (Avelox) 400 mg PO DAILY [facility] Ondansetron HCl (Zofran Inj) 4 mg IVP Q6 PRN PRN Reason: Nausea/Vomiting Vitamin A (Vitamin A&D) 0 applic TP Q8 PRN PRN Reason: Dry skin Last Admin: 10/27/17 17:02 Dose: 1 applic - Labs Labs: 10/31/17 06:19 10/31/17 06:19 PT 17.7 SECONDS (9.7-12.2) H 10/29/17 11:22 INR 1.6 10/29/17 11:22 APTT 25 SECONDS (21-34) 10/29/17 11:22 - Head Exam Head Exam: ATRAUMATIC - Eye Exam Eye Exam: Normal appearance - ENT Exam ENT Exam: Mucous Membranes Dry - Respiratory Exam Respiratory Exam: Decreased Breath Sounds - Cardiovascular Exam Cardiovascular Exam: +S1, +S2 - GI/Abdominal Exam GI & Abdominal Exam: Normal Bowel Sounds Assessment and Plan (1) Leukocytosis Assessment & Plan: s/p growth factor support on antibiotics Status: Acute (2) Thrombocytopenia Assessment & Plan: likely secondary to chemotherapy Status: Acute (3) Anemia Assessment & Plan: chronic disease, recent chemotherapy Status: Acute (4) Pancreatitis Assessment & Plan: pancreatic metastasis, tumor necrosis causing inflammation Status: Acute (5) Small cell lung cancer Assessment & Plan: stage IV on outpatient chemotherapy palliative care Status: Acute
--- NOTE | 2017-10-31 21:25 | CP.PCM.PN ---
Subjective - Date & Time of Evaluation Date of Evaluation: 10/31/17 Time of Evaluation: 19:00 - Subjective Subjective: Vented Objective - Vital Signs/Intake and Output Vital Signs (last 24 hours): Temp Pulse Resp BP Pulse Ox 98.0 F 132 H 19 102/63 98 10/31/17 18:00 10/31/17 19:01 10/31/17 19:01 10/31/17 19:01 10/31/17 19:01 Intake and Output: 10/31/17 11/01/17 18:59 06:59 Intake Total 1541.25 168 Output Total 55 5 Balance 1486.25 163 - Medications Medications: Current Medications Albuterol/Ipratropium (Duoneb 3 Mg/0.5 Mg (3 Ml) Ud) 3 ml INH RQ6 LISA Last Admin: 10/31/17 19:02 Dose: 3 ml Ascorbic Acid (Vitamin C 500 Mg Tab) 500 mg PO DAILY LISA Last Admin: 10/31/17 09:54 Dose: 500 mg Famotidine (Pepcid) 20 mg PO DAILY LISA Last Admin: 10/31/17 09:55 Dose: 20 mg Hydrocortisone Sodium Succinate (Solu-Cortef) 50 mg IV Q6H LISA Last Admin: 10/31/17 18:14 Dose: 50 mg Norepinephrine Bitartrate 4 mg (/ Dextrose) 254 mls @ 15.24 mls/hr IV .[id number] PRN; Protocol; 4 MCG/MIN PRN Reason: TITRATE PER MD ORDER Last Admin: 10/31/17 17:45 Dose: 5 mcg/min, 19.05 mls/hr Fentanyl Citrate 2,500 mcg/ (Sodium Chloride) 250 mls @ 19.05 mls/hr IV .Q13H8M PRN; 2 MCG/KG/HR PRN Reason: Protocol Last Admin: 10/31/17 18:37 Dose: 5 mcg/kg/hr, 47.62 mls/hr Midazolam HCl 100 mg/ Dextrose 100 mls @ 1.9 mls/hr IV .Q24H LISA; 0.02 MG/KG/HR PRN Reason: Protocol Last Titration: 10/31/17 09:03 Dose: 0.04 mg/kg/hr, 4 mls/hr Aztreonam 1 gm/ Sodium (Chloride) 100 mls @ 200 mls/hr IVPB Q12H LISA PRN Reason: Protocol Last Admin: 10/31/17 15:38 Dose: 200 mls/hr Insulin Aspart (Novolog) 0 unit SC Q6H LISA PRN Reason: Protocol Last Admin: 10/31/17 18:13 Dose: 2 units Lactulose (Enulose) 20 gm NG Q8H PRN PRN Reason: Constipation Last Admin: 10/31/17 18:53 Dose: 20 gm Moxifloxacin HCl (Avelox) 400 mg PO DAILY LISA Ondansetron HCl (Zofran Inj) 4 mg IVP Q6 PRN PRN Reason: Nausea/Vomiting Vitamin A (Vitamin A&D) 0 applic TP Q8 PRN PRN Reason: Dry skin Last Admin: 10/27/17 17:02 Dose: 1 applic - Labs Labs: 10/31/17 06:19 10/31/17 06:19 PT 17.7 SECONDS (9.7-12.2) H 10/29/17 11:22 INR 1.6 10/29/17 11:22 APTT 25 SECONDS (21-34) 10/29/17 11:22 - Head Exam Head Exam: ATRAUMATIC - Eye Exam Eye Exam: Normal appearance - ENT Exam ENT Exam: Mucous Membranes Dry - Respiratory Exam Respiratory Exam: Decreased Breath Sounds - Cardiovascular Exam Cardiovascular Exam: +S1, +S2 - GI/Abdominal Exam GI & Abdominal Exam: Normal Bowel Sounds Assessment and Plan (1) Small cell lung cancer Assessment & Plan: stage IV supportive care for possible withdrawal of care Status: Acute
[2017-11-01] MEDS: (Novolog) Insulin Aspart, Recombinant 100 u/ml 10 ml vial SC SCH (00:09)
[2017-11-01] MEDS: Midazolam 50 mg/10 ml 100 MG in Dextrose 5% In Water 80 ML IV SCH (00:17)
--- NOTE | 2017-11-01 01:15 | CP.PCM.PCO ---
Physician Communication Note - Physician Communication Note Physician Communication Note: I Spoke to Patient's daughter Maria Eugenia by phone. She requested DNR
[2017-11-01] MEDS: Albuterol-Ipratrop 3 mg / 0.5 (3 ml) UD INH SCH (02:55)
[2017-11-01] MEDS: Aztreonam 1 GM in Sodium Chloride 0.9% 100 ML IVPB SCH (03:36)
[2017-11-01 05:43] VITALS: TEMP 97.8; O2SAT 95
--- NOTE | 2017-11-01 06:34 | CP.PCM.PRO ---
Pronouncement of Note - Clinical Findings Physical Exam: Absent Peripheral Pulses{Carotid & Femoral}, Absent Heart & Breath Sounds, No Pupillary Light Reflex, No Corneal Reflex, Pupils Fixed & Dilated, Absence of Vital Signs - Pronouncement Time Time of Pronouncement of : 06:08 - Notifications Pronouncement Notifications: Family Notified, Atending Notified Construction Equipment Operator Notified: No - Autopsy Autopsy Requested: No [place]: [id number] Additional Comments: The patient was a DNR
[2017-11-01 07:26] VITALS: BP 51/25; PULSE 74; RESP 25
--- NOTE | 2017-11-01 07:51 | CP.PCM.DIS ---
Provider - Provider Date of Admission: 10/20/17 17:54 Attending physician: Juan Carlos Gale MD Primary care physician: Dr Frank Consults: Dr Florinda Cortés and Dr Aleksander Avilez Time Spent in preparation of Discharge (in minutes): 29 Hospital Course - Lab Results Lab Results: Micro Results 10/27/17 10:41 Blood-Venous Blood Culture - Preliminary NO GROWTH AFTER 4 DAYS 10/27/17 09:15 Blood-Venous Blood Culture - Preliminary NO GROWTH AFTER 4 DAYS 10/27/17 10:41 Trachasp Gram Stain - Final 10/27/17 10:41 Trachasp Sputum Culture - Final NORMAL ORAL ELVER 10/27/17 00:06 Nose MRSA Culture (Admit) - Final MRSA NOT DETECTED 10/27/17 09:15 Urine,Clay Urine Culture - Final No Growth (<1,000 CFU/ML) Most Recent Lab Values WBC 30.7 K/uL (4.8-10.8) H 10/31/17 06:19 RBC 2.87 Mil/uL (4.40-5.90) L 10/31/17 06:19 Hgb 7.8 g/dL (12.0-18.0) L 10/31/17 06:19 Hct 23.3 % (35.0-51.0) L 10/31/17 06:19 MCV 81.1 fL (80.0-94.0) 10/31/17 06:19 MCH 27.3 pg (27.0-31.0) 10/31/17 06:19 MCHC 33.7 g/dL (33.0-37.0) 10/31/17 06:19 RDW 22.3 % (11.5-14.5) H 10/31/17 06:19 Plt Count 33 K/uL (130-400) L 10/31/17 06:19 MPV 4.6 fL (7.2-11.7) L 10/31/17 06:19 Neut % (Auto) 88.0 % (50.0-75.0) H 10/31/17 06:19 Lymph % (Auto) 9.0 % (20.0-40.0) L 10/31/17 06:19 [place] % (Auto) 2.8 % (0.0-10.0) 10/31/17 06:19 Eos % (Auto) 0.0 % (0.0-4.0) 10/31/17 06:19 Baso % (Auto) 0.2 % (0.0-2.0) 10/31/17 06:19 Neut # (Auto) 27.0 K/uL (1.8-7.0) H 10/31/17 06:19 Lymph # (Auto) 2.8 K/uL (1.0-4.3) 10/31/17 06:19 [place] # (Auto) 0.9 K/uL (0.0-0.8) H 10/31/17 06:19 Eos # (Auto) 0.0 K/uL (0.0-0.7) 10/31/17 06:19 Baso # (Auto) 0.0 K/uL (0.0-0.2) 10/31/17 06:19 Neutrophils % (Manual) 43 % (50-75) L 10/31/17 06:19 Band Neutrophils % 33 % (0-2) H* 10/31/17 06:19 Lymphocytes % (Manual) 5 % (20-40) L 10/31/17 06:19 Reactive Lymphs % 2 % (0-0) H 10/31/17 06:19 Monocytes % (Manual) TEST NOT PERFORMED 10/31/17 06:19 Metamyelocytes % 7 % (0-0) H 10/31/17 06:19 Myelocytes % 10 % (0-0) H 10/31/17 06:19 Promyelocytes % 1 % (0-0) H 10/27/17 06:48 Plasma Cell % (Manual) TEST NOT PERFORMED 10/27/17 06:48 Nucleated RBC % 14 % (0-0) H 10/31/17 06:19 Differential Comment 10/21/17 07:39 Smudge Cells Present 10/27/17 06:48 Platelet Estimate Decreased (NORMAL) L 10/31/17 06:19 Large Platelets Present 10/28/17 06:41 Giant Platelets Present 10/26/17 08:55 Polychromasia Slight 10/31/17 06:19 Hypochromasia (manual) Slight 10/31/17 06:19 Poikilocytosis (manual Slight 10/28/17 06:41 Anisocytosis (manual) Slight 10/31/17 06:19 Microcytosis (manual) Slight 10/28/17 06:41 Macrocytosis (manual) Slight 10/28/17 06:41 Spherocytes Slight 10/27/17 06:48 Target Cells Slight 10/30/17 06:32 Tear Drop Cells Slight 10/27/17 06:48 Ovalocytes Slight 10/28/17 06:41 Schistocytes Slight 10/31/17 06:19 Smear Path Review 10/21/17 07:39 PT 17.7 SECONDS (9.7-12.2) H 10/29/17 11:22 INR 1.6 10/29/17 11:22 APTT 25 SECONDS (21-34) 10/29/17 11:22 Fibrinogen 367 mg/dL (200-400) 10/29/17 11:22 Puncture Site Rr 10/31/17 04:20 pCO2 69 mm/Hg (35-45) H 10/31/17 04:20 pO2 111 mm/Hg (80-100) H 10/31/17 04:20 HCO3 24.0 mmol/L (21-28) 10/31/17 04:20 ABG pH 7.21 (7.35-7.45) L 10/31/17 04:20 ABG Total CO2 29.7 mmol/L (22-28) H 10/31/17 04:20 ABG O2 Saturation 99.2 % (95-98) H 10/31/17 04:20 ABG Base Excess -1.2 mmol/L (-2.0-3.0) 10/31/17 04:20 ABG Hemoglobin 10.2 g/dL (11.7-17.4) L 10/31/17 04:20 ABG Carboxyhemoglobin 2.6 % (0.5-1.5) H 10/31/17 04:20 POC ABG HHb (Measured) 0.8 % (0.0-5.0) 10/31/17 04:20 ABG Methemoglobin 1.0 % (0.0-3.0) 10/31/17 04:20 Jt Test Pos 10/31/17 04:20 ABG Potassium 4.2 mmol/L (3.6-5.2) 10/28/17 16:34 A-a O2 Difference 516.0 mm/Hg 10/31/17 04:20 Respiratory Index 4.6 10/31/17 04:20 Hgb O2 Saturation 95.6 % (95.0-98.0) 10/31/17 04:20 Sodium 144.0 mmol/l (132-148) 10/28/17 16:34 Chloride 112.0 mmol/L (98-107) H 10/28/17 16:34 Glucose 163 mg/dl (75-110) H 10/28/17 16:34 Lactate 1.3 mmol/L (0.7-2.1) 10/28/17 16:34 Vent Mode Prvc 10/31/17 04:20 Mechanical Rate 24 10/31/17 04:20 FiO2 100.0 % 10/31/17 04:20 Tidal Volume 550 10/31/17 04:20 PEEP 8 10/31/17 04:20 Crit Value Called To Geovani pierre horticultural technical officer 10/29/17 05:20 Crit Value Called By Cynthia hernandez rt 10/29/17 05:20 Crit Value Read Back Y 10/29/17 05:20 Blood Gas Notified Time 535 10/29/17 05:20 Sodium 151 mmol/L (132-148) H 10/31/17 06:19 Potassium 5.4 mmol/L (3.6-5.2) H 10/31/17 06:19 Chloride 111 mmol/L (98-107) H 10/31/17 06:19 Carbon Dioxide 29 mmol/L (22-30) 10/31/17 06:19 Anion Gap 16 (10-20) 10/31/17 06:19 BUN 87 mg/dL (9-20) H 10/31/17 06:19 Creatinine 3.4 mg/dL (0.8-1.5) H 10/31/17 06:19 Est GFR ( Amer) 22 10/31/17 06:19 Est GFR (Non-Af Amer) 18 10/31/17 06:19 POC Glucose (mg/dL) 268 mg/dL (65-110) H 10/31/17 23:19 Random Glucose 158 mg/dL (75-110) H 10/31/17 06:19 Lactic Acid 1.4 mmol/L (0.7-2.1) 10/27/17 20:50 Calcium 7.6 mg/dl (8.6-10.4) L 10/31/17 06:19 Phosphorus 4.3 mg/dL (2.5-4.5) 10/31/17 06:19 Magnesium 2.5 mg/dL (1.6-2.3) H 10/31/17 06:19 Total Bilirubin 4.2 mg/dL (0.2-1.3) H 10/31/17 06:19 AST 105 U/L (17-59) H D 10/31/17 06:19 ALT 48 U/L (21-72) 10/31/17 06:19 Alkaline Phosphatase 491 U/L (38-126) H D 10/31/17 06:19 CK-MB (Mass) 2.21 ng/mL (0.0-3.38) 10/27/17 09:15 Troponin I 0.1190 ng/mL (0.00-0.120) 10/28/17 11:16 NT-Pro-B Natriuret Pep 3910 pg/mL (0-900) H 10/27/17 09:15 Total Protein 5.5 g/dL (6.3-8.3) L 10/31/17 06:19 Albumin 2.3 g/dL (3.5-5.0) L 10/31/17 06:19 Globulin 3.1 gm/dL (2.2-3.9) 10/31/17 06:19 Albumin/Globulin Ratio 0.7 (1.0-2.1) L 10/31/17 06:19 Amylase 283 U/L (30-110) H D 10/20/17 15:29 Lipase 64 U/L (23-300) 10/24/17 07:15 Arterial Blood Potassium 4.2 mmol/L (3.6-5.2) 10/28/17 16:34 Urine Color Beth (YELLOW) 10/27/17 09:15 Urine Clarity Hazy (Clear) 10/27/17 09:15 Urine pH 5.0 (5.0-8.0) 10/27/17 09:15 Ur Specific [place] 1.019 (1.003-1.030) 10/27/17 09:15 Urine Protein 2+ mg/dL (NEGATIVE) H 10/27/17 09:15 Urine Glucose (UA) 1+ mg/dL (Normal) H 10/27/17 09:15 Urine Ketones Negative mg/dL (NEGATIVE) 10/27/17 09:15 Urine Blood 1+ (NEGATIVE) H 10/27/17 09:15 Urine Nitrate Negative (NEGATIVE) 10/27/17 09:15 Urine Bilirubin Negative (NEGATIVE) 10/27/17 09:15 Urine Urobilinogen Normal mg/dL (0.2-1.0) 10/27/17 09:15 Ur Leukocyte Esterase Trace Faina/uL (Negative) 10/27/17 09:15 Urine WBC (Auto) 12 /hpf (0-5) H 10/27/17 09:15 Urine RBC (Auto) 5 /hpf (0-3) H 10/27/17 09:15 Ur Squamous Epith Cells 1 /hpf (0-5) 10/27/17 09:15 Amorphous Sediment Moderate /ul (<OCC) H 10/27/17 09:15 Urine Bacteria Rare (<OCC) 10/27/17 09:15 Vancomycin Trough 12.3 ug/mL (5.0-10.0) H 10/28/17 11:16 Random Vancomycin 31.5 ug/mL 10/31/17 06:19 Urine Opiates Screen Positive (NEGATIVE) H 10/27/17 10:41 Urine Methadone Screen Negative (NEGATIVE) 10/27/17 10:41 Ur Barbiturates Screen Negative (NEGATIVE) 10/27/17 10:41 Ur Phencyclidine Scrn Negative (NEGATIVE) 10/27/17 10:41 Ur Amphetamines Screen Negative (NEGATIVE) 10/27/17 10:41 U Benzodiazepines Scrn Positive (NEGATIVE) 10/27/17 10:41 U Oth Cocaine Metabols Negative (NEGATIVE) 10/27/17 10:41 U Cannabinoids Screen Negative (NEGATIVE) 10/27/17 10:41 - Hospital Course Hospital Course: This is a 62 year old male who at 6:08 AM. His EDRS case ID is [id number]. Jeff Florentino had extensive small cell cancer of the lung with a lot of metastatic disease. I first met Mr Ortiz a few months ago when he came to the hospital with what appeared to be a COPD exacerbation at that time. CXRAY findings at that time were concerning and so a CT scan at that time showed that there were very concerning R lung findings. A bronchoscopy was done and a biopsy revealed the small cell CA. The patient has been since that time on chemotherapy however he continued to have spread of the cancer. There were several admission for pancreatitis. However this time when he was admitted he had severe abdominal pain and now had lesions of the pancrease as well as the right kidney. There is a history of extensive smoking for some time from what I understand We have been updating the family members during the hospitalization We had several meetings to inform the family of the poor prognosis. And yesterday we again had family meeting. This morning I offered them my condolences. The EDRS was already filled out by ICU physician. Discharge Exam - Head Exam Head Exam: ATRAUMATIC Discharge Plan - Follow Up Plan Condition: STABLE Disposition: WITH WITHOUT AUTOPSY
== END 2017-11-01 06:08 | DRG 207 ==
LOC: C.ER 14:57 → C.9E 17:54 → C.3T 18:14 → C.9I 10-27 00:04
PROVIDERS: ADMIT Internal Medicine; ATTEND Internal Medicine
PROC: 0BH17EZ Insertion of Endotracheal Airway into Trachea, Via Natural or Artificial Opening (ICD-10-PCS; principal; 2017-10-26)
PROC: 5A1955Z Respiratory Ventilation, Greater than 96 Consecutive Hours (ICD-10-PCS; 2017-10-26)
DX: C34.91 Malignant neoplasm of unspecified part of right bronchus or lung (principal); D61.810 Antineoplastic chemotherapy induced pancytopenia; J96.01 Acute respiratory failure with hypoxia; J69.0 Pneumonitis due to inhalation of food and vomit; I21.4 Non-ST elevation (NSTEMI) myocardial infarction; J96.02 Acute respiratory failure with hypercapnia; A41.9 Sepsis, unspecified organism; K85.90 Acute pancreatitis without necrosis or infection, unspecified; R65.21 Severe sepsis with septic shock; C78.89 Secondary malignant neoplasm of other digestive organs; D68.9 Coagulation defect, unspecified; J80 Acute respiratory distress syndrome; J90 Pleural effusion, not elsewhere classified; E87.2 Acidosis; N17.9 Acute kidney failure, unspecified; C79.02 Secondary malignant neoplasm of left kidney and renal pelvis; C79.01 Secondary malignant neoplasm of right kidney and renal pelvis; C78.7 Secondary malignant neoplasm of liver and intrahepatic bile duct; E11.9 Type 2 diabetes mellitus without complications; I46.9 Cardiac arrest, cause unspecified; G89.29 Other chronic pain; I10 Essential (primary) hypertension; F17.200 Nicotine dependence, unspecified, uncomplicated; G30.9 Alzheimer's disease, unspecified; F02.80 Dementia in other diseases classified elsewhere, unspecified severity, without behavioral disturbance, psychotic disturbance, mood disturbance, and anxiety; D63.8 Anemia in other chronic diseases classified elsewhere; K21.9 Gastro-esophageal reflux disease without esophagitis; Z51.5 Encounter for palliative care; Z66 Do not resuscitate; Z88.0 Allergy status to penicillin; Z79.4 Long term (current) use of insulin